=== PATIENT | female | born 1935 | race Caucasian/White ===

== ENCOUNTER 2017-06-20 18:39 | Inpatient (IN) | payer MEDICARE, SELFPAY ==
[2017-06-20] VITALS (13 sets, daily range): BP systolic 99–189; BP diastolic 53–67; PULSE 72–168; RESP 14–24; TEMP 37.1–37.8; O2SAT 94–97; BMI 44.4
--- NOTE | 2017-06-20 19:05 | ECHOD_ITS ---
Reason For Study: Afib, Aflutter Procedure This was a 2D Doppler, Color Flow transthoracic echocardiogram. The study was technically difficult. Did not use Definity due to increased PAP. Exam performed portable in patient room. Left Ventricle Normal LV size. Left ventricular systolic function is normal. The estimated ejection fraction is 55 %. Transmitral and pulmonary venous doppler flow suggestive of elevated left atrial pressure. No regional wall motion abnormalities noted. Right Ventricle Normal RV size. Normal systolic function. Atria The left atrium is mildly enlarged. Normal right atrium. Mitral Valve Normal mitral valve. Mild (1+) eccentric mitral valve insufficiency. Tricuspid Valve Normal tricuspid valve. Moderate (2+) tricuspid valve insufficiency. Pulmonary artery systolic pressure is 52 mmHg. Moderate pulmonary hypertension. Aortic Valve Trisinus/trileaflet aortic valve. Mild focal aortic valve calcification. Mild (1+) eccentric aortic valve insufficiency. Pulmonic Valve The pulmonic valve is not well visualized. Great Vessels Normal aortic root. The pulmonary artery is normal size. Normal inferior vena cava. Pericardium/Pleural No pericardial effusion. Medication Performed a rapid injection of agitated mix of 9 cc saline and 1cc air to assess for atrial septal defect. MMode/2D Measurements & Calculations LVIDd: 4.7 cm IVSd: 1.1 cm LVOT diam: 2.0 cm LVIDs: 3.4 cm LVPWd: 0.87 cm LVOT area: 3.0 cm2 RVDd: 5.2 cm FS: 28.3 % Ao root diam: 2.7 cm LAV(MOD-bp): 62.3 ml LA dimension: 4.6 cm LAV(MOD-bp) Indexed: 30.8 ml/m2 LA A4 area: 22.0 cm2 LAV(MOD-sp2): 53.8 ml LAV(MOD-sp4): 61.0 ml RA A4 area: 15.4 cm2 Time Measurements MV dec time: 0.14 sec Doppler Measurements & Calculations MV E max shine: 121.5 cm/sec Lat Peak E' Shine: 8.8 cm/sec Med Peak E' Shine: 5.6 cm/sec MV A max shine: 118.4 cm/sec E/E' lat: 13.7 E/E' med: 21.6 MV E/A: 1.0 MV V2 max: 123.1 cm/sec MV P1/2t max shine: 118.5 cm/sec Ao V2 max: 234.5 cm/sec MV max P.1 mmHg MV P1/2t: 84.0 msec Ao max P.0 mmHg MV V2 mean: 72.1 cm/sec MV dec slope: 413.1 cm/sec2 Ao V2 mean: 171.0 cm/sec MV mean P.4 mmHg MVA(P1/2t): 2.6 cm2 Ao mean P.2 mmHg MV V2 VTI: 40.3 cm Ao V2 VTI: 52.8 cm MVA(VTI): 2.0 cm2 KIRILL(I,D): 1.5 cm2 KIRILL(V,D): 1.7 cm2 AI max shine: 313.7 cm/sec LV V1 max: 130.1 cm/sec SV(LVOT): 79.6 ml AI max P.5 mmHg LV V1 max P.8 mmHg AI dec slope: 222.0 cm/sec2 LV V1 mean P.1 mmHg AI P1/2t: 414.0 msec LV V1 mean: 94.7 cm/sec LV V1 VTI: 26.5 cm PA V2 max: 85.3 cm/sec TR max shine: 338.6 cm/sec TR max P.9 mmHg Interpretation Summary Normal LV size. Left ventricular systolic function is normal. The estimated ejection fraction is 55 %. Transmitral and pulmonary venous doppler flow suggestive of elevated left atrial pressure. Moderate (2+) tricuspid valve insufficiency. Pulmonary artery systolic pressure is 52 mmHg. Moderate pulmonary hypertension. Ordering Physician: Patricia Pinto Performed By: Malorie Alford, MARCELL, RVT
--- NOTE | 2017-06-20 19:05 | EKG12_ITS ---
Test Reason : CHEST PAIN Blood Pressure : / mmHG Vent. Rate : 097 BPM Atrial Rate : 097 BPM P-R Int : 120 ms QRS Dur : 138 ms QT Int : 372 ms P-R-T Axes : 058 120 037 degrees QTc Int : 472 ms Normal sinus rhythm Right bundle branch block Left posterior fascicular block Bifascicular block Abnormal ECG No previous ECGs available Confirmed by HUMZA MUÑOZ MD ([id number]), avid editor JONO GREGG ([id number] on 06/24/2017 1:37:30 PM Referred By: ANDRIA Confirmed By:HUMZA MUÑOZ MD
--- NOTE | 2017-06-20 19:15 | PCM.HP.STD ---
Problem List (1) Left nephrolithiasis Status: Acute (2) Hydroureter, left Status: Acute (3) Hydronephrosis, left Status: Acute (4) Acute UTI Status: Acute (5) HTN (hypertension) Status: Chronic Qualifiers: Hypertension type: essential hypertension Qualified Code(s): I10 - Essential (primary) hypertension (6) HLD (hyperlipidemia) Status: Chronic Qualifiers: Hyperlipidemia type: unspecified Qualified Code(s): E78.5 - Hyperlipidemia, unspecified (7) Chronic lymphedema Status: Chronic (8) Iron deficiency anemia Status: Chronic Qualifiers: Iron deficiency anemia type: unspecified iron deficiency Qualified Code(s): D50.9 - Iron deficiency anemia, unspecified (9) Morbid obesity Status: Chronic (10) Chronic venous stasis dermatitis Status: Chronic History of Present Illness Date of Admission: 06/20/17 Chief Complaint: L CVA tenderness, dysuria The patient is a 82 y/o F w/ PMHx: Morbid Obesity, Hypoventilation Syndrome, HTN, HLD, Diabetes mellitus type II, Chronic venous stasis and chronic BL LE lymphedema, Hx Nephrolithasis who presents as OSH transfer to the [facility] on 06/20/17 with history of onset L sided abdominal and back discomfort, worsening steadily with dysuria starting today, felt likely consistent with kidney stone from her prior experience prompting OSH ED evaluation w/ noted evidence acute UTI and acute L sided hydronephrosis and hydroureter with 11 mm stone prompting request for transfer. In the OSH ED work-up included T 97.9, heart rate 71, BP 180/100, respiratory rate 18, 92% on room air, CBC with WBC 11.3, hemoglobin 11.1, platelet 344 with left shift, BMP with sodium 138, potassium 4.7, chloride 101, CO2 26, BUN/Cr 28/1.2, glucose 222, trop < 0.02, UA remarkable for UTI w/ pending UCx at [facility] ED, EKG initial with SR without acute evidence of ischemia, administered NS and rocephin 1 gm IV x 1. While in the ED at OSH she was noted to have sudden rate increase HR asymptomatic to 130s with appearance on monitor of atrial fibrillation, prior to any intervention, < 10 minutes duration she converted to regular rhythm per ED physician report. Past Medical History Past Medical History (Chronic Problems): Chronic Problems HTN (hypertension) (Chronic) HLD (hyperlipidemia) (Chronic) Chronic lymphedema (Chronic) Iron deficiency anemia (Chronic) Morbid obesity (Chronic) Chronic venous stasis dermatitis (Chronic) Allergies lisinopril Adverse Reaction (Verified 06/20/17 19:14) Other COUGH Home Medications: Ambulatory Orders Medication Instructions Recorded Amlodipine [Norvasc] 5 mg PO DAILY 06/20/17 Aspirin [Aspirin, Baby] 81 mg PO DAILY@0800 06/20/17 Atorvastatin Calcium [Lipitor] 10 mg PO QHS 06/20/17 Ferrous Sulfate 325 mg PO BID 06/20/17 Furosemide [Lasix] 40 mg PO DAILY 06/20/17 Glipizide [Glipizide ER] 5 mg PO TID 06/20/17 Levothyroxine [Synthroid] 137 mcg PO DAILY 06/20/17 Losartan Potassium 100 mg PO DAILY 06/20/17 Metformin HCl [Glucophage] 500 mg PO BID 06/20/17 Multivit-Min/FA/Lycopen/Lutein 1 each PO DAILY 06/20/17 [Centrum Silver Tablet] Omeprazole [Prilosec] 20 mg PO DAILY 06/20/17 Pioglitazone HCl [Pioglitazone HCl] 15 mg PO DAILY 06/20/17 Potassium Chloride [Klor-Con 10 meq PO BID 06/20/17 Sprinkle] Surgical History: - - Denies any surgical history. 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 Smoking Status: Never smoker Tobacco Use: Non-smoker Alcohol: None Drugs: None - *Family History Maternal History Items: - - She denies any marked maternal or paternal family history including heart disease, diabetes, cancer. Paternal History Items: - - She denies any marked maternal or paternal family history including heart disease, diabetes, cancer. Review of Systems Constitutional: Reports: Anorexia, Malaise, Weakness, Fatigue. Denies: Chills, Fever, Weight Change HEENT: Denies: Head Aches, Sinus Congestion, Sinus Drainage Cardiovascular: Denies: Chest Pain, Palpitations Respiratory: Denies: Cough, Shortness of breath at rest, Sputum production Gastrointestinal: Reports: Abdominal Pain, Nausea, Vomiting Genitourinary: Denies: Dysuria Musculoskeletal: Denies: Joint Pain, Joint Tenderness Skin: Reports: Skin Changes. Denies: Rash, Wounds Neurological: Denies: Numbness, Tingling, Focal weakness Psychiatric: Denies: Anxiety, Depression, Homicidal Ideations, Suicidal Ideations Hematologic/ Lymphatic: Reports: Anemia. Denies: Easy Bruising, Easy Bleeding VTE Information - Inpt Only VTE Present on Admission: No VTE Mechan Device Prophylaxis: SCD's VTE Pharm Prophylaxis ordered?: No Reason prophylaxis not ordered:: Medical Contraindication - Holding for OR, start chemoprophylaxis following if cleared per Urology. Patient Problems: Active and Suspected Problems Left nephrolithiasis (Acute) Hydroureter, left (Acute) Hydronephrosis, left (Acute) Acute UTI (Acute) Subjective: Seated upright in the bed, in severe discomfort, notes ongoing flank pain L sided. Objective: Physical Examination: General: awake, alert, oriented x 3 and cooperative, seated upright in bed, visibly in discomfort and pain. Skin: normal color, turgor, no icterus, cyanosis except BL LE notable chronic venous stasis skin changes to the bilateral lower extremities as well as severe flaking dry skin, chronic BL LE lymphedema. HEENT: AT/NC, EOMI, PERRLA, dry MM, no carotid bruits or JVD noted; but, difficult to assess given habitus and thickened neck. Lungs: Diminished breath sounds bilaterally, greater bases, poor effort secondary to ongoing flank discomfort, and severe pain, no rales, ronchi or wheezing. Heart: Currently tachycardic with regular rhythm (OSH ED ? PAF w/ RVR); no gallop, rub audible. Abdomen: soft, morbidly obese, severe L sided abdominal TTP and L flank pain, ND, hypoactive BS, difficult to assess HSM secondary to acute pain and habitus. Extremities: no cyanosis, clubbing, see skin changes. Neurological: patient awake, alert, oriented x 3; cognitive function intact; pupils equally reactive to light and accomodation; cranial nerves II-XII grossly normal, moving all 4 extremities but limited secondary to acute presentation, no focal deficits, strength severely globally decreased secondary to acute presentation. Psychiatric: affect appears strained secondary to acute pain, no acute evidence of depressive or anxiety feelings. - Physical Exam Vital Signs Temp Pulse Resp BP Pulse Ox 99.2 F H 153 H 18 189/57 H 97 03/30/18 18:57 06/20/17 19:01 06/20/17 18:57 06/20/17 18:57 06/20/17 18:57 Oxygen Flow Rate (L/min) 5 Oxygen Delivery Method Nasal Cannula Weight: 235 lb 3.732 oz Body Mass Index (BMI) 44.4 Assessment/Plan Active and Suspected Problems Left nephrolithiasis (Acute) Hydroureter, left (Acute) Hydronephrosis, left (Acute) Acute UTI (Acute) The patient is a 82 y/o F w/ PMHx: Morbid Obesity, Hypoventilation Syndrome, HTN, HLD, Diabetes mellitus type II, Chronic venous stasis and chronic BL LE lymphedema, Hx Nephrolithasis who presents as OSH transfer to the [facility] on 06/20/17 with history of onset L sided abdominal and back discomfort, worsening steadily with dysuria, felt likely consistent with kidney stone from her prior experience prompting OSH ED evaluation w/ noted evidence acute UTI and acute L sided hydronephrosis and hydroureter with 11 mm stone prompting request for transfer. (1) Acute Flank Pain, secondary to Acute Nephrolithiasis w/ Acute L sided Hydroureter and Hydronephrosis w/ 11 mm Obstructive Calculi with concurrent Acute UTI: WBC w/ 11.3 w/ L shift, UA remarkable w/ pending UCx from OSH ED, CT Abd obtained w/ as noted evidence of L sided hydronephrosis, hydroureter w/ 11 mm stone. Will admit to PCU given ? afib transiently, maintain on hydration, maintain on IV Rocephin antiobitic therapy, maintain NPO for intervention, place on Famotidine IV, PRN pain regimen oral and IV, PRN anti-emetics, monitor I&Os. Urology consulted and planned intervention today per earlier discussions. (2) ? New onset, Transient Paroxsymal atrial fibrillation: EKG in ED OSH with no evidence of atrial fibrillation, transient event in their ED, will maintain on telemetry, obtain cardiac enzyme serial set, obtain magnesium level, obtain ECHO, obtain TSH level. Defer anticoagulation as unclear if true event and planned OR with urology as noted. Will in the interim add metoprolol 25 mg BID. (3) Diabetes mellitus type II: Hold oral home regimen, NPO currently and once appropriate transition to ADA diet, accu checks w/ ISS. (4) Hypertension: Continue home regimen including Lasix, losartan, Norvasc given renal function has remained appropriate but will repeat labs in a.m. and if worsened will hold, PRN hydralazine. (5) Hyperlipidemia: Continue home statin regimen. (6) Morbid Obesity: Weight loss and lifestyle changes encouraged, nutrition consulted. (7) Chronic venous stasis and chronic BL LE lymphedema: BL snug TAYLOR wraps. (8) Fe Deficiency Anemia: OSH ED Hgb 11.1, stable from their report of records, maintain on Fe supplementation. (9) DVT Prophylaxis: SCDs, holding chemoprophylaxis for planned OR. (10) CODE status: Discussed CODE status at length including difference between FULL code, DNR-CCA and DNR-CC status. Following discussions about the differences in these status, requested FULL CODE status. Advanced Care Planning Face to Face Time: 16 minutes. Code Visit Inpatient E&M: 24487 Init Hosp L3 Procedures: 37541 Advncd Care Plan 30 Min
--- NOTE | 2017-06-20 19:29 | HP.PCM_ITS ---
Problem List (1) Left nephrolithiasis Status: Acute (2) Hydroureter, left Status: Acute (3) Hydronephrosis, left Status: Acute (4) Acute UTI Status: Acute (5) HTN (hypertension) Status: Chronic Qualifiers: Hypertension type: essential hypertension Qualified Code(s): I10 - Essential (primary) hypertension (6) HLD (hyperlipidemia) Status: Chronic Qualifiers: Hyperlipidemia type: unspecified Qualified Code(s): E78.5 - Hyperlipidemia , unspecified (7) Chronic lymphedema Status: Chronic (8) Iron deficiency anemia Status: Chronic Qualifiers: Iron deficiency anemia type: unspecified iron deficiency Qualified Code(s) : D50.9 - Iron deficiency anemia, unspecified (9) Morbid obesity Status: Chronic (10) Chronic venous stasis dermatitis Status: Chronic History of Present Illness Date of Admission: 06/20/17 Chief Complaint: L CVA tenderness, dysuria The patient is a 82 y/o F w/ PMHx: Morbid Obesity, Hypoventilation Syndrome, HTN , HLD, Diabetes mellitus type II, Chronic venous stasis and chronic BL LE lymphedema, Hx Nephrolithasis who presents as OSH transfer to the [facility] on with history of onset L sided abdominal and back discomfort, worsening steadily with dysuria starting today, felt likely consistent with kidney stone from her prior experience prompting OSH ED evaluation w/ noted evidence acute UTI and acute L sided hydronephrosis and hydroureter with 11 mm stone prompting request for transfer. In the OSH ED work-up included T 97.9, heart rate 71, BP 180/100, respiratory rate 18, 92% on room air, CBC with WBC 11.3, hemoglobin 11.1, platelet 344 with left shift, BMP with sodium 138, potassium 4.7, chloride 101, CO2 26, BUN/Cr 28/1.2, glucose 222, trop < 0.02, UA remarkable for UTI w/ pending UCx at [facility] ED, EKG initial with SR without acute evidence of ischemia, administered NS and rocephin 1 gm IV x 1. While in the ED at OSH she was noted to have sudden rate increase HR asymptomatic to 130s with appearance on monitor of atrial fibrillation, prior to any intervention, < 10 minutes duration she converted to regular rhythm per ED physician report. Past Medical History Past Medical History (Chronic Problems): Chronic Problems HTN (hypertension) (Chronic) HLD (hyperlipidemia) (Chronic) Chronic lymphedema (Chronic) Iron deficiency anemia (Chronic) Morbid obesity (Chronic) Chronic venous stasis dermatitis (Chronic) Allergies lisinopril Adverse Reaction (Verified 06/20/17 19:14) Other COUGH Home Medications: Ambulatory Orders Medication Instructions Recorded Amlodipine [Norvasc] 5 mg PO DAILY 06/20/17 Aspirin [Aspirin, Baby] 81 mg PO DAILY@0800 06/20/17 Atorvastatin Calcium [Lipitor] 10 mg PO QHS 06/20/17 Ferrous Sulfate 325 mg PO BID 06/20/17 Furosemide [Lasix] 40 mg PO DAILY 06/20/17 Glipizide [Glipizide ER] 5 mg PO TID 06/20/17 Levothyroxine [Synthroid] 137 mcg PO DAILY 06/20/17 Losartan Potassium 100 mg PO DAILY 06/20/17 Metformin HCl [Glucophage] 500 mg PO BID 06/20/17 Multivit-Min/FA/Lycopen/Lutein 1 each PO DAILY 06/20/17 [Centrum Silver Tablet] Omeprazole [Prilosec] 20 mg PO DAILY 06/20/17 Pioglitazone HCl [Pioglitazone HCl] 15 mg PO DAILY 06/20/17 Potassium Chloride [Klor-Con 10 meq PO BID 06/20/17 Sprinkle] Surgical History: - - Denies any surgical history. 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 Smoking Status: Never smoker Tobacco Use: Non-smoker Alcohol: None Drugs: None - *Family History Maternal History Items: - - She denies any marked maternal or paternal family history including heart disease, diabetes, cancer. Paternal History Items: - - She denies any marked maternal or paternal family history including heart disease, diabetes, cancer. Review of Systems Constitutional: Reports: Anorexia, Malaise, Weakness, Fatigue. Denies: Chills, Fever, Weight Change HEENT: Denies: Head Aches, Sinus Congestion, Sinus Drainage Cardiovascular: Denies: Chest Pain, Palpitations Respiratory: Denies: Cough, Shortness of breath at rest, Sputum production Gastrointestinal: Reports: Abdominal Pain, Nausea, Vomiting Genitourinary: Denies: Dysuria Musculoskeletal: Denies: Joint Pain, Joint Tenderness Skin: Reports: Skin Changes. Denies: Rash, Wounds Neurological: Denies: Numbness, Tingling, Focal weakness Psychiatric: Denies: Anxiety, Depression, Homicidal Ideations, Suicidal Ideations Hematologic/ Lymphatic: Reports: Anemia. Denies: Easy Bruising, Easy Bleeding VTE Information - Inpt Only VTE Present on Admission: No VTE Mechan Device Prophylaxis: SCD's VTE Pharm Prophylaxis ordered?: No Reason prophylaxis not ordered:: Medical Contraindication - Holding for OR, start chemoprophylaxis following if cleared per Urology. Patient Problems: Active and Suspected Problems Left nephrolithiasis (Acute) Hydroureter, left (Acute) Hydronephrosis, left (Acute) Acute UTI (Acute) Subjective: Seated upright in the bed, in severe discomfort, notes ongoing flank pain L sided. Objective: Physical Examination: General: awake, alert, oriented x 3 and cooperative, seated upright in bed, visibly in discomfort and pain. Skin: normal color, turgor, no icterus, cyanosis except BL LE notable chronic venous stasis skin changes to the bilateral lower extremities as well as severe flaking dry skin, chronic BL LE lymphedema. HEENT: AT/NC, EOMI, PERRLA, dry MM, no carotid bruits or JVD noted; but, difficult to assess given habitus and thickened neck. Lungs: Diminished breath sounds bilaterally, greater bases, poor effort secondary to ongoing flank discomfort, and severe pain, no rales, ronchi or wheezing. Heart: Currently tachycardic with regular rhythm (OSH ED ? PAF w/ RVR); no gallop, rub audible. Abdomen: soft, morbidly obese, severe L sided abdominal TTP and L flank pain, ND , hypoactive BS, difficult to assess HSM secondary to acute pain and habitus. Extremities: no cyanosis, clubbing, see skin changes. Neurological: patient awake, alert, oriented x 3; cognitive function intact; pupils equally reactive to light and accomodation; cranial nerves II-XII grossly normal, moving all 4 extremities but limited secondary to acute presentation, no focal deficits, strength severely globally decreased secondary to acute presentation. Psychiatric: affect appears strained secondary to acute pain, no acute evidence of depressive or anxiety feelings. - Physical Exam Vital Signs Temp Pulse Resp BP Pulse Ox 99.2 F H 153 H 18 189/57 H 97 03/30/18 18:57 06/20/17 19:01 06/20/17 18:57 06/20/17 18:57 06/20/17 18:57 Oxygen Flow Rate (L/min) 5 Oxygen Delivery Method Nasal Cannula Weight: 235 lb 3.732 oz Body Mass Index (BMI) 44.4 Assessment/Plan Active and Suspected Problems Left nephrolithiasis (Acute) Hydroureter, left (Acute) Hydronephrosis, left (Acute) Acute UTI (Acute) The patient is a 82 y/o F w/ PMHx: Morbid Obesity, Hypoventilation Syndrome, HTN , HLD, Diabetes mellitus type II, Chronic venous stasis and chronic BL LE lymphedema, Hx Nephrolithasis who presents as OSH transfer to the [facility] on with history of onset L sided abdominal and back discomfort, worsening steadily with dysuria, felt likely consistent with kidney stone from her prior experience prompting OSH ED evaluation w/ noted evidence acute UTI and acute L sided hydronephrosis and hydroureter with 11 mm stone prompting request for transfer. (1) Acute Flank Pain, secondary to Acute Nephrolithiasis w/ Acute L sided Hydroureter and Hydronephrosis w/ 11 mm Obstructive Calculi with concurrent Acute UTI: WBC w/ 11.3 w/ L shift, UA remarkable w/ pending UCx from OSH ED, CT Abd obtained w/ as noted evidence of L sided hydronephrosis, hydroureter w/ 11 mm stone. Will admit to PCU given ? afib transiently, maintain on hydration, maintain on IV Rocephin antiobitic therapy, maintain NPO for intervention, place on Famotidine IV, PRN pain regimen oral and IV, PRN anti-emetics, monitor I&Os. Urology consulted and planned intervention today per earlier discussions. (2) ? New onset, Transient Paroxsymal atrial fibrillation: EKG in ED OSH with no evidence of atrial fibrillation, transient event in their ED, will maintain on telemetry, obtain cardiac enzyme serial set, obtain magnesium level, obtain ECHO, obtain TSH level. Defer anticoagulation as unclear if true event and planned OR with urology as noted. Will in the interim add metoprolol 25 mg BID. (3) Diabetes mellitus type II: Hold oral home regimen, NPO currently and once appropriate transition to ADA diet, accu checks w/ ISS. (4) Hypertension: Continue home regimen including Lasix, losartan, Norvasc given renal function has remained appropriate but will repeat labs in a.m. and if worsened will hold, PRN hydralazine. (5) Hyperlipidemia: Continue home statin regimen. (6) Morbid Obesity: Weight loss and lifestyle changes encouraged, nutrition consulted. (7) Chronic venous stasis and chronic BL LE lymphedema: BL snug TAYLOR wraps. (8) Fe Deficiency Anemia: OSH ED Hgb 11.1, stable from their report of records, maintain on Fe supplementation. (9) DVT Prophylaxis: SCDs, holding chemoprophylaxis for planned OR. (10) CODE status: Discussed CODE status at length including difference between FULL code, DNR-CCA and DNR-CC status. Following discussions about the differences in these status, requested FULL CODE status. Advanced Care Planning Face to Face Time: 16 minutes. Code Visit Inpatient E&M: 87746 Init Hosp L3 Procedures: 80466 Advncd Care Plan 30 Min
[2017-06-20] MEDS: Morphine 2 MG/ML Syringe IV (19:58)
[2017-06-20] MEDS: Ceftriaxone 1 GM/50 ML BAG IV (20:00)
[2017-06-20] MEDS: 0.9% Normal Saline 1,000 ML 125 ML IV (20:03)
[2017-06-20] MEDS: Metoprolol Tartrate 25 MG Tablet PO (20:05)
--- NOTE | 2017-06-20 20:09 | PCM.CONS.GEN ---
Problem List (1) Left nephrolithiasis Status: Acute (2) Acute UTI Status: Acute Reason for Consult Date of Consultation: 06/20/17 Reason for Consultation: Obstruction, infection and pain History of Present Illness: The patient is a 82 year old F who was transferred here for annual pulmonary hospital. She presented there with acute onset of renal colic and CT scan showed left hydroureteronephrosis. She is also found to have urinary tract infection and patient was having significant pain. He has multiple comorbidities with chronic morbid obesity chronic edema of lower extremities diabetes mellitus type 2 long-standing but no prior cardiac issues. However in the ER residual pulmonary was noted to have episodes of A. fib. Her troponins have been negative pressure has been stable and it is thought that the severity of pain is contributing to the intermittent cardiac arrhythmia. I reviewed the hospital chart, her CT scan from [facility], her laboratory studies. She had a recent EKG while I was attending her that showed essentially regular rhythm her vital signs are otherwise stable. Patient is in significant pain and doing poorly with pain management. Due to the infections that she was recently given a dose of Rocephin. [] Past Medical History Past Medical History (Chronic Problems): Chronic Problems HTN (hypertension) (Chronic) HLD (hyperlipidemia) (Chronic) Chronic lymphedema (Chronic) Iron deficiency anemia (Chronic) Morbid obesity (Chronic) Chronic venous stasis dermatitis (Chronic) Allergies lisinopril Adverse Reaction (Verified 06/20/17 19:14) Other COUGH Home Medications: Ambulatory Orders Medication Instructions Recorded Amlodipine [Norvasc] 5 mg PO DAILY 06/20/17 Aspirin [Aspirin, Baby] 81 mg PO DAILY@0800 06/20/17 Atorvastatin Calcium [Lipitor] 10 mg PO QHS 06/20/17 Ferrous Sulfate 325 mg PO BID 06/20/17 Furosemide [Lasix] 40 mg PO DAILY 06/20/17 Glipizide [Glipizide ER] 5 mg PO TID 06/20/17 Levothyroxine [Synthroid] 137 mcg PO DAILY 06/20/17 Losartan Potassium 100 mg PO DAILY 06/20/17 Metformin HCl [Glucophage] 500 mg PO BID 06/20/17 Multivit-Min/FA/Lycopen/Lutein 1 each PO DAILY 06/20/17 [Centrum Silver Tablet] Omeprazole [Prilosec] 20 mg PO DAILY 06/20/17 Pioglitazone HCl [Pioglitazone HCl] 15 mg PO DAILY 06/20/17 Potassium Chloride [Klor-Con 10 meq PO BID 06/20/17 Sprinkle] Surgical History: - - Denies any surgical history. 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 Smoking Status: Never smoker Tobacco Use: Non-smoker Alcohol: None Drugs: None - *Family History Maternal History Items: - - She denies any marked maternal or paternal family history including heart disease, diabetes, cancer. Paternal History Items: - - She denies any marked maternal or paternal family history including heart disease, diabetes, cancer. Review of Systems Constitutional: Reports: - - obesity UNABLE TO PLACE MORE INFO INTO APPROPRIATE BOXES, BUT PT HAS DM TYPE II AND IS ON NUMEROUS MEDICATIONS FOR THIS, SHOULD BE NOTED IN PMH Patient Problems: Active and Suspected Problems Left nephrolithiasis (Acute) Hydroureter, left (Acute) Hydronephrosis, left (Acute) Acute UTI (Acute) - Physical Exam General: Alert, Oriented x3, Cooperative, - - OBESE Oral: Moist Mucosa Abdomen: Bowel Sounds Present, Obese, - - PAIN IN LEFT CVA Extremities: Edema Vital Signs Temp Pulse Resp BP Pulse Ox 99.2 F H 101 H 18 189/57 H 97 06/20/17 18:57 06/20/17 20:05 06/20/17 18:57 06/20/17 18:57 06/20/17 18:57 Oxygen Flow Rate (L/min) 5 Oxygen Delivery Method Nasal Cannula Weight: 106.7 kg Body Mass Index (BMI) 44.4 Assessment/Plan Active and Suspected Problems Left nephrolithiasis (Acute) Hydroureter, left (Acute) Hydronephrosis, left (Acute) Acute UTI (Acute) Diabetic patients with acute onset of left renal lithiasis, very proximal. Patient also has a urinary tract infection. She has numerous comorbidities and recently started with arrhythmia when in the ER and [place]. She has been started on parenteral antibiotics. At this point I feel a stent is needed for drainage and pain management. To do this under minimal anesthesia will address the stone at a later date when patient is more clinically stable.
--- NOTE | 2017-06-20 20:19 | CON.PCM_ITS ---
Problem List (1) Left nephrolithiasis Status: Acute (2) Acute UTI Status: Acute Reason for Consult Date of Consultation: 06/20/17 Reason for Consultation: Obstruction, infection and pain History of Present Illness: The patient is a 82 year old F who was transferred here for annual pulmonary hospital. She presented there with acute onset of renal colic and CT scan showed left hydroureteronephrosis. She is also found to have urinary tract infection and patient was having significant pain. He has multiple comorbidities with chronic morbid obesity chronic edema of lower extremities diabetes mellitus type 2 long-standing but no prior cardiac issues. However in the ER residual pulmonary was noted to have episodes of A. fib. Her troponins have been negative pressure has been stable and it is thought that the severity of pain is contributing to the intermittent cardiac arrhythmia. I reviewed the hospital chart, her CT scan from [facility], her laboratory studies. She had a recent EKG while I was attending her that showed essentially regular rhythm her vital signs are otherwise stable. Patient is in significant pain and doing poorly with pain management. Due to the infections that she was recently given a dose of Rocephin. [] Past Medical History Past Medical History (Chronic Problems): Chronic Problems HTN (hypertension) (Chronic) HLD (hyperlipidemia) (Chronic) Chronic lymphedema (Chronic) Iron deficiency anemia (Chronic) Morbid obesity (Chronic) Chronic venous stasis dermatitis (Chronic) Allergies lisinopril Adverse Reaction (Verified 06/20/17 19:14) Other COUGH Home Medications: Ambulatory Orders Medication Instructions Recorded Amlodipine [Norvasc] 5 mg PO DAILY 06/20/17 Aspirin [Aspirin, Baby] 81 mg PO DAILY@0800 06/20/17 Atorvastatin Calcium [Lipitor] 10 mg PO QHS 06/20/17 Ferrous Sulfate 325 mg PO BID 06/20/17 Furosemide [Lasix] 40 mg PO DAILY 06/20/17 Glipizide [Glipizide ER] 5 mg PO TID 06/20/17 Levothyroxine [Synthroid] 137 mcg PO DAILY 06/20/17 Losartan Potassium 100 mg PO DAILY 06/20/17 Metformin HCl [Glucophage] 500 mg PO BID 06/20/17 Multivit-Min/FA/Lycopen/Lutein 1 each PO DAILY 06/20/17 [Centrum Silver Tablet] Omeprazole [Prilosec] 20 mg PO DAILY 06/20/17 Pioglitazone HCl [Pioglitazone HCl] 15 mg PO DAILY 06/20/17 Potassium Chloride [Klor-Con 10 meq PO BID 06/20/17 Sprinkle] Surgical History: - - Denies any surgical history. 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 Smoking Status: Never smoker Tobacco Use: Non-smoker Alcohol: None Drugs: None - *Family History Maternal History Items: - - She denies any marked maternal or paternal family history including heart disease, diabetes, cancer. Paternal History Items: - - She denies any marked maternal or paternal family history including heart disease, diabetes, cancer. Review of Systems Constitutional: Reports: - - obesity UNABLE TO PLACE MORE INFO INTO APPROPRIATE BOXES, BUT PT HAS DM TYPE II AND IS ON NUMEROUS MEDICATIONS FOR THIS , SHOULD BE NOTED IN PMH Patient Problems: Active and Suspected Problems Left nephrolithiasis (Acute) Hydroureter, left (Acute) Hydronephrosis, left (Acute) Acute UTI (Acute) - Physical Exam General: Alert, Oriented x3, Cooperative, - - OBESE Oral: Moist Mucosa Abdomen: Bowel Sounds Present, Obese, - - PAIN IN LEFT CVA Extremities: Edema Vital Signs Temp Pulse Resp BP Pulse Ox 99.2 F H 101 H 18 189/57 H 97 06/20/17 18:57 06/20/17 20:05 06/20/17 18:57 06/20/17 18:57 06/20/17 18:57 Oxygen Flow Rate (L/min) 5 Oxygen Delivery Method Nasal Cannula Weight: 106.7 kg Body Mass Index (BMI) 44.4 Assessment/Plan Active and Suspected Problems Left nephrolithiasis (Acute) Hydroureter, left (Acute) Hydronephrosis, left (Acute) Acute UTI (Acute) Diabetic patients with acute onset of left renal lithiasis, very proximal. Patient also has a urinary tract infection. She has numerous comorbidities and recently started with arrhythmia when in the ER and [place]. She has been started on parenteral antibiotics. At this point I feel a stent is needed for drainage and pain management. To do this under minimal anesthesia will address the stone at a later date when patient is more clinically stable.
[2017-06-20] MEDS: Lubricating Jelly 60 GM Tube 30 GM TOPICAL (21:06)
[2017-06-20 21:07] LABS: Thyroid Stim Hormone (TSH) 2.51 uIU/mL (0.358-3.74)
[2017-06-20 21:11] LABS: Magnesium 1.5 mg/dL (1.6-2.6)
[2017-06-20] MEDS: Lidocaine Jelly 2% 20 ML Syringe (URO-JET) 20 APPLIC (21:14)
--- NOTE | 2017-06-20 21:44 | PCM.IMDPSTOP ---
Problem List (1) Left nephrolithiasis Status: Acute (2) Acute UTI Status: Acute Immediate Post-Op Note Date of Procedure: 06/20/17 Primary Surgeon/Physician: Jermain Muhammad plastic surgery specialist: None Pre-Operative Diagnosis: Lt ureteral lithiasis, UTI Post-Operative Diagnosis: same Surgery/Procedure Performed:: cysto, retro and Lt stent placement Description of Surgical Findings:: as above Estimated Blood Loss: none Specimen's removed: urine for C&S Drains: marino Type of Anesthesia:: MAC and Topical Anesth - Kancherla - Admit VTE Documentation VTE Present on Admission: No VTE Mechan Device Prophylaxis: None VTE Pharm Prophylaxis ordered?: Yes
--- NOTE | 2017-06-20 21:47 | OP.PN_ITS ---
Problem List (1) Left nephrolithiasis Status: Acute (2) Acute UTI Status: Acute Immediate Post-Op Note Date of Procedure: 06/20/17 Primary Surgeon/Physician: Jermain Muhammad systems engineer: None Pre-Operative Diagnosis: Lt ureteral lithiasis, UTI Post-Operative Diagnosis: same Surgery/Procedure Performed:: cysto, retro and Lt stent placement Description of Surgical Findings:: as above Estimated Blood Loss: none Specimen's removed: urine for C&S Drains: marino Type of Anesthesia:: MAC and Topical Anesth - Kancherla - Admit VTE Documentation VTE Present on Admission: No VTE Mechan Device Prophylaxis: None VTE Pharm Prophylaxis ordered?: Yes
--- NOTE | 2017-06-20 21:51 | OP.PCM_ITS ---
Problem List (1) Left nephrolithiasis Status: Acute (2) Acute UTI Status: Acute Operative Report Date of Procedure: 06/20/17 Preop diagnosis left ureteral lithiasis UTI Postop same Procedure cystoscopy, left retrograde and left ureteral stent placement Anesthesia MAC with Hiral and local anesthesia Procedure patient was recently admitted to the hospital with an acute obstruction and having difficulty with pain management. She is brought this time for a stent placements. She is taken to the operating room placed on the table and placed in body position and prepped and draped in sterile technique. She is placed under MAC anesthesia by Dr. Blackman. At this point urethra was injected 2% lidocaine gel and after several minutes a 21 Faroese scope was then placed under digital exam. Had a markedly deflected bladder necessitating significant anterior deflection of the scope to get in the bladder. The severity of the cystocele unable to find the orifice ease with the 12? lens. Urine itself was markedly purulent and some of this was collected and sent for C &S. After flushing the bladder several times and then switch over to a 70? lens with the bridge and a guidewire is able to cannulate the left orifice with digital elevation of the trigone. The wire was then placed up in the renal pelvis the Pollick catheter was removed and over this placed a 6 x 24 stent with a good curl distally approximately small suture that was inside the bladder. At this point as there was an infection elected leave a Garcia catheter. [address] Patient was then taken recovery in stable condition. That is on this dictation is Dr. Telles;radu dictating thank you
[2017-06-20 22:01] LABS: Bedside Glucose 117 mg/dL (70-110)
[2017-06-20] MEDS: Atorvastatin Calcium 10 MG Tablet PO (22:40)
[2017-06-20] MEDS: Famotidine 20 MG Tablet PO (22:40)
[2017-06-20] MEDS: Senna/Docusate Sodium 1 Tablet 2 TABLET PO (22:41)
[2017-06-20 23:01] LABS: Bedside Glucose 131 mg/dL (70-110)
[2017-06-20 23:49] LABS: Hemoglobin A1c 6.5 % (4.2-6.3)
[2017-06-21] VITALS (19 sets, daily range): BP systolic 89–133; BP diastolic 34–64; PULSE 67–147; RESP 18–26; TEMP 36.7–37.9; O2SAT 94–98; BMI 44.4
--- NOTE | 2017-06-21 01:07 | NURSING ---
Pt notified that MD wants pts legs to be washed, cream to be applied, and TAYLOR wraps applied. Pt does not want legs washed, does not want cream applied, and stated she does not want TAYLOR wraps until AM.
[2017-06-21] MEDS: 0.9% Normal Saline 1,000 ML 125 ML IV (02:18)
[2017-06-21 04:00] LABS: Hematocrit 31.1 % (37-47); Hemoglobin 9.6 g/dl (12.0-15.0); Mean Corp Hgb Conc 30.9 g/gl (32-36); Mean Corpuscular Hgb 29.6 pg (27.0-32.0); Mean Platelet Vol. 9.6 fl (6.2-12.0); Platelet Count 267 K/mm3 (150-450); RBC Distribution Width CV 16.4 % (11.6-14.6); RBC Distribution Width SD 54.7 fl (35.1-43.9); Red Blood Count 3.24 M/mm3 (4.2-5.4)
[2017-06-21 04:08] LABS: Scan Indicated on CBC? Y/N NO
[2017-06-21 04:12] LABS: Anion Gap 11 (5-15); BUN 32 mg/dL (7-18); BUN/Creat Ratio 15.1 RATIO (10-20); Calcium,Total 7.4 mg/dL (8.5-10.1); Chloride 111 mmol/L (98-107); Cholesterol 83 mg/dL (200); Creatinine, Serum 2.12 mg/dL (0.55-1.02); EST Glomerular Filtration Rate 24 mL/min (>60); Est Glom Filt Rate - Afr Amer 29 mL/min (>60); Estimated Creatinine Clearance 15.44 ml/min; Glucose 111 mg/dL (74-106); High Density Lipoprotein 41 mg/dL; Potassium 4.3 mmol/L (3.5-5.1); Sodium Level 146 mmol/L (136-145); Triglycerides 56 mg/dL; Very Low Density Lipoprotein 11 mg/dL (5-40)
--- NOTE | 2017-06-21 05:55 | EKG12_ITS ---
Test Reason : Blood Pressure : / mmHG Vent. Rate : 132 BPM Atrial Rate : 150 BPM P-R Int : 000 ms QRS Dur : 138 ms QT Int : 356 ms P-R-T Axes : 000 084 -07 degrees QTc Int : 527 ms Atrial fibrillation Right bundle branch block Abnormal ECG When compared with ECG of 20-JUN-2017 19:25, MANUAL COMPARISON REQUIRED, DATA IS UNCONFIRMED Confirmed by WANDA SINCLAIR, HUMZA ([id number]), makeup editor JONO GREGG ([id number]) on 06/24/2017 1:38:44 PM Referred By: ANDRIA Confirmed By:HUMZA MUÑOZ MD
[2017-06-21] MEDS: Levothyroxine 137 MCG Tablet PO (06:24)
[2017-06-21 06:46] LABS: Bedside Glucose 109 mg/dL (70-110)
[2017-06-21 07:41] LABS: Bedside Glucose 128 mg/dL (70-110)
[2017-06-21] MEDS: Aspirin 81 MG TAB.CHEW PO (08:21)
--- NOTE | 2017-06-21 08:37 | NURSING ---
pt is refusing to have legs washed with soap & water and to have eucerin applied. Applied TAYLOR wraps to BLE.
--- NOTE | 2017-06-21 08:53 | RAD_ITS ---
STUDY: X-RAY CHEST REASON FOR EXAM: Female, 82 years old. Shortness of breath. TECHNIQUE: Frontal and lateral views of the chest. COMPARISON: None. FINDINGS: There are monitoring devices. There is interstitial and groundglass opacification. There is no demonstrated pleural abnormality. There is moderate cardiac enlargement. Normal mediastinum and rachel. There is prominence of the pulmonary hilar arteries and peripheral pulmonary arteries, consistent with congestive heart failure (CHF). There is atherosclerotic calcification of the aortic arch with tortuosity. There is demineralization of the osseous structures. Normal visualized ribs, clavicles, and shoulders. There is no demonstrated abnormality of the visualized soft tissue structures of the upper abdomen. RAD/Chest PA and Lateral IMPRESSION: CHF with cardiac enlargement and edema. Electronically Signed: Richmond Solano MD at 11:50 EDT , Service support ,
--- NOTE | 2017-06-21 09:00 | RAD_ITS ---
STUDY: X-RAY - ABDOMEN/PELVIS REASON FOR EXAM: Female, 82 years old. Left urinary stone. TECHNIQUE: AP supine views of the abdomen and pelvis. COMPARISON: None. FINDINGS: There are interstitial and groundglass opacities of the lungs. There is an unremarkable bowel gas pattern. There is no demonstrated free abdominal air. There is a urinary stent extending from the region of the left renal pelvis to the bladder. Normal soft tissue structures. Degenerative change of the spine and pelvis. RAD/Abdomen Single View IMPRESSION: Left urinary stent. Electronically Signed: Richmond Solano MD at 11:53 EDT , Service support ,
[2017-06-21] MEDS: 0.9% NaCl Peripheral Flush Adult/Peds IV (09:30)
[2017-06-21] MEDS: Furosemide 20 MG/2 ML VIAL IV ×2 (09:30→12:47)
[2017-06-21] MEDS: Famotidine 20 MG Tablet PO ×2 (10:57→21:47)
[2017-06-21] MEDS: Nystatin Powder 15gm Bottle 1 APPLIC TOPICAL ×2 (11:18→21:48)
[2017-06-21 11:26] LABS: Bedside Glucose 128 mg/dL (70-110)
[2017-06-21] MEDS: Ceftriaxone 1 GM/50 ML BAG IV (12:47)
[2017-06-21] MEDS: Ferrous Sulfate 325 MG Tablet PO ×2 (12:50→17:11)
--- NOTE | 2017-06-21 13:09 | CASEMGMT ---
Social Work Referral for limited support. Spoke with patient in room. Introduced self as well as social work role. Patient reporting to currently be living with son in a 2-story home with a 1st floor set up and x1 step to enter the home. Patient reporting to need assistance in the home and that patient son provided assistance. Patient reporting to use a cane to walk prior to hospitalization. Patient reporting that patient son is able to provide 24hr within the home for patient. Broaching topic of supports for patient, patient identifying son as main support and to not have many other supports. This clinical social work therapist noting that patient required x2 assist for bed mobility and broached topic of prison placement for skilled services. Patient declining prison stating to not be interested in placement, even if patient requires more assistance then patient needed prior to admission. Patient reporting that patient son will be able to assist. Support given. Social work to continue to follow as needed Caroline NÚÑEZ, RETAIL BUSINESS ANALYST
--- NOTE | 2017-06-21 13:31 | PCM.PROGNOTE ---
<Maite Tineo - Last Filed: 06/21/17 14:27> Patient Problems: Active and Suspected Problems Left nephrolithiasis (Acute) Hydroureter, left (Acute) Hydronephrosis, left (Acute) Acute UTI (Acute) Subjective: Patient seen and examined. Resting comfortably in chair, drowsy at this time. Denies fever, chills. Denies abdominal or flank pain. Garcia catheter in place and draining. Denies other complaints. - Physical Exam General: Oriented x3, Cooperative, No apparent distress, - - Drowsy HEENT: Atraumatic, PERRLA, EOMI, Normocephalic Neck: Supple, No JVD, Negative Carotid Bruits Lungs: Clear to auscultation, Diminished Cardiovascular: Regular rate, Regular Rhythm, Normal S1, Normal S2, No murmurs Abdomen: Bowel Sounds Present, Soft, Non Tender, Non-Distended, Obese Extremities: No clubbing, No cyanosis, Edema - BLLE, BL hands. Skin: No rashes, No breakdown Musculoskeletal: No Tenderness to Palpation of Joints or Extremities Neurological: Cranial nerves II-XII grossly intact, Neuro grossly intact Psych/Mental Status: Normal Affect, Appropriate Vital Signs Temp Pulse Resp BP Pulse Ox 98.6 F 70 20 H 97/51 L 96 06/21/17 11:19 06/21/17 11:19 06/21/17 11:19 06/21/17 11:19 06/21/17 11:19 Oxygen Flow Rate (L/min) 4 Oxygen Delivery Method Nasal Cannula Weight: 106.7 kg Body Mass Index (BMI) 44.4 Finger Stick Blood Glucose 117 Intake and Output for Last 24 Hours 06/19/17 06/20/17 06/21/17 23:59 23:59 23:59 Intake Total 805 / 805 1200 / 1200 Output Total 50 / 50 20 / 20 Balance 755 / 755 1180 / 1180 Microbiology Past 72 Hours 06/20/17 21:23 Urine Culture - Preliminary Urine, Cystoscopy Gram negative gomez Laboratory Tests Past 24 Hrs 06/20/17 06/20/17 06/20/17 20:06 20:06 23:22 WBC RBC Hgb Hct MCV MCH MCHC RDW RDW Differential Plt Count MPV Sodium Potassium Chloride Carbon Dioxide Anion Gap BUN Creatinine Estim Creat Clear Calc Est GFR (MDRD) Af Amer Est GFR (MDRD) Non-Af BUN/Creatinine Ratio Glucose Hemoglobin A1c Calcium Magnesium 1.5 L Troponin I < 0.02 < 0.02 Triglycerides Cholesterol LDL Cholesterol VLDL Cholesterol HDL Cholesterol TSH 2.51 06/20/17 06/21/17 06/21/17 23:22 03:47 03:47 WBC 27.0 H RBC 3.24 L Hgb 9.6 L Hct 31.1 L MCV 96.0 MCH 29.6 MCHC 30.9 L RDW 16.4 H RDW Differential 54.7 H Plt Count 267 MPV 9.6 Sodium 146 H Potassium 4.3 Chloride 111 H Carbon Dioxide 24.0 Anion Gap 11 BUN 32 H Creatinine 2.12 H Estim Creat Clear Calc 15.44 Est GFR (MDRD) Af Amer 29 L Est GFR (MDRD) Non-Af 24 L BUN/Creatinine Ratio 15.1 Glucose 111 H Hemoglobin A1c 6.5 H Calcium 7.4 L Magnesium Troponin I Triglycerides 56 Cholesterol 83 LDL Cholesterol 31 VLDL Cholesterol 11 HDL Cholesterol 41 TSH 06/21/17 06/21/17 03:47 09:25 WBC RBC Hgb Hct MCV MCH MCHC RDW RDW Differential Plt Count MPV Sodium Potassium Chloride Carbon Dioxide Anion Gap BUN Creatinine Estim Creat Clear Calc Est GFR (MDRD) Af Amer Est GFR (MDRD) Non-Af BUN/Creatinine Ratio Glucose Hemoglobin A1c Calcium Magnesium Troponin I < 0.02 < 0.02 Triglycerides Cholesterol LDL Cholesterol VLDL Cholesterol HDL Cholesterol TSH POC Glucose 06/21/17 06/21/17 06/21/17 11:17 06:53 04:13 POC Glucose 128 H 128 H 109 06/20/17 06/20/17 22:37 21:56 POC Glucose 131 H 117 H Medical Necessity - Tobacco Use Smoking Status: Never smoker Tobacco Use: Non-smoker Assessment/Plan Active and Suspected Problems Left nephrolithiasis (Acute) Hydroureter, left (Acute) Hydronephrosis, left (Acute) Acute UTI (Acute) Patient is a 82-year-old female admitted 06/20/2017 due to left CVA tenderness and dysuria. She has a past medical history of morbid obesity, hypoventilation syndrome, hypertension, hyperlipidemia, type 2 diabetes mellitus, chronic venous stasis and chronic bilateral lower extremity lymphedema, history of nephrolithiasis. 1. Acute left nephrolithiasis and gram-negative cystitis-status post cystoscopy and left stent placement 06/20/[address] at outside facility showed left hydroureter and hydronephrosis. KUB today showed left urinary stent. Fever improving. WBC 27. Continue IV Rocephin. Urology consulted. 2. Acute diastolic CHF with associated acute hypoxia-chest x-ray shows CHF with cardiac enlargement and edema. Echocardiogram showed an ejection fraction of 55%, moderate tricuspid valve insufficiency, moderate pulmonary hypertension with RVSP 52 mmHg. Patient received IV Lasix ?2. Continue Lasix 40 mg daily. Patient has had poor urine output. Strict I's and O's. 3. New onset paroxysmal atrial fibrillation-currently sinus rhythm. Patient has had repeat episodes of atrial fibrillation briefly during admission. Patient was started on metoprolol 25 mg twice daily for rate control. Continue aspirin. 4. Suspected acute kidney injury-unknown of patient's baseline. Creatinine 2.12. Trend BMP. If no improvement, consider nephrology consult. 5. Type 2 diabetes mellitus-hold oral regimen. ADA diet. Accu-Cheks before meals at bedtime with sliding scale insulin. 6. Hypertension-stable, continue home regimen. 7. Hyperlipidemia-continue statin. 8. Chronic venous stasis and chronic bilateral lower extremity lymphedema-continue Hadley wraps bilateral lower extremities. 9. Iron deficiency anemia-stable, continue iron supplementation. 10. Morbid obesity-nutrition consult. Encouraged diet and lifestyle modifications. DVT prophylaxis-SCDs. This patient was seen by LOIDA Lopez under the supervision of Dr. Grijalva. <Ruiz Grijalva - Last Filed: 06/21/17 16:34> Subjective: Seen and examined. Patient has bilateral lower extremity edema, lower legs wrapped along with upper extremity edema. Mild short of breath but feels comfortable and sitting upright in chair. - Physical Exam Lungs: No wheeze, No rales, Diminished Cardiovascular: Regular rate, Regular Rhythm, Normal S1, Normal S2, No murmurs Abdomen: Non-Distended, Obese Extremities: Diminished Peripheral Pulses, Edema Vital Signs Temp Pulse Resp BP Pulse Ox 98.6 F 68 20 H 118/52 L 98 06/21/17 15:46 06/21/17 15:46 06/21/17 15:46 06/21/17 15:46 06/21/17 15:46 Oxygen Flow Rate (L/min) 3 Oxygen Delivery Method Nasal Cannula Weight: 235 lb 3.732 oz Body Mass Index (BMI) 44.4 Finger Stick Blood Glucose 117 Intake and Output for Last 24 Hours 06/19/17 06/20/17 06/21/17 23:59 23:59 23:59 Intake Total 805 / 805 1200 / 1200 Output Total 50 / 50 20 / 20 Balance 755 / 755 1180 / 1180 Microbiology Past 72 Hours 06/20/17 21:23 Urine Culture - Preliminary Urine, Cystoscopy Gram negative gomez Laboratory Tests Past 24 Hrs 06/20/17 06/20/17 06/20/17 20:06 20:06 23:22 WBC RBC Hgb Hct MCV MCH MCHC RDW RDW Differential Plt Count MPV Sodium Potassium Chloride Carbon Dioxide Anion Gap BUN Creatinine Estim Creat Clear Calc Est GFR (MDRD) Af Amer Est GFR (MDRD) Non-Af BUN/Creatinine Ratio Glucose Hemoglobin A1c Calcium Magnesium 1.5 L Troponin I < 0.02 < 0.02 Triglycerides Cholesterol LDL Cholesterol VLDL Cholesterol HDL Cholesterol TSH 2.51 06/20/17 06/21/17 06/21/17 23:22 03:47 03:47 WBC 27.0 H RBC 3.24 L Hgb 9.6 L Hct 31.1 L MCV 96.0 MCH 29.6 MCHC 30.9 L RDW 16.4 H RDW Differential 54.7 H Plt Count 267 MPV 9.6 Sodium 146 H Potassium 4.3 Chloride 111 H Carbon Dioxide 24.0 Anion Gap 11 BUN 32 H Creatinine 2.12 H Estim Creat Clear Calc 15.44 Est GFR (MDRD) Af Amer 29 L Est GFR (MDRD) Non-Af 24 L BUN/Creatinine Ratio 15.1 Glucose 111 H Hemoglobin A1c 6.5 H Calcium 7.4 L Magnesium Troponin I Triglycerides 56 Cholesterol 83 LDL Cholesterol 31 VLDL Cholesterol 11 HDL Cholesterol 41 TSH 06/21/17 06/21/17 03:47 09:25 WBC RBC Hgb Hct MCV MCH MCHC RDW RDW Differential Plt Count MPV Sodium Potassium Chloride Carbon Dioxide Anion Gap BUN Creatinine Estim Creat Clear Calc Est GFR (MDRD) Af Amer Est GFR (MDRD) Non-Af BUN/Creatinine Ratio Glucose Hemoglobin A1c Calcium Magnesium Troponin I < 0.02 < 0.02 Triglycerides Cholesterol LDL Cholesterol VLDL Cholesterol HDL Cholesterol TSH POC Glucose 06/21/17 06/21/17 06/21/17 11:17 06:53 04:13 POC Glucose 128 H 128 H 109 06/20/17 06/20/17 22:37 21:56 POC Glucose 131 H 117 H Assessment/Plan This patient was seen in conjunction with Maite BEVERLY. I have independently interviewed and examined the patient and reviewed pertinent history, examination findings, laboratory and plan of management. I have reviewed the note and agree with the documented findings with the few additional points. In brief, patient is admitted for acute gram-negative cystitis secondary to obstructive left nephrolithiasis. Patient is a left hydroureter and hydronephrosis. Had left ureteric stone. Patient also has oliguria and fluid overload. Monitor strict I&O's. Titrate IV fluid, albumin for patient acute kidney injury which is multifactorial; prerenal, postobstructive and possible ATN due to sepsis. If kidney function does not improve, consult nephrology. I have discussed my assessment with SCHOOL AGE LEAD TEACHERMaite and orders have been reviewed. Code Visit Inpatient E&M: 95900 Subs Hosp L3
--- NOTE | 2017-06-21 13:37 | PCM.PROGNOTE ---
Patient Problems: Active and Suspected Problems Left nephrolithiasis (Acute) Hydroureter, left (Acute) Hydronephrosis, left (Acute) Acute UTI (Acute) - Physical Exam Vital Signs Temp Pulse Resp BP Pulse Ox 98.6 F 70 20 H 97/51 L 96 06/21/17 11:19 06/21/17 11:19 06/21/17 11:19 06/21/17 11:19 06/21/17 11:19 Oxygen Flow Rate (L/min) 4 Oxygen Delivery Method Nasal Cannula Weight: 106.7 kg Body Mass Index (BMI) 44.4 Finger Stick Blood Glucose 117 Intake and Output for Last 24 Hours 06/19/17 06/20/17 06/21/17 23:59 23:59 23:59 Intake Total 805 / 805 1200 / 1200 Output Total 50 / 50 20 / 20 Balance 755 / 755 1180 / 1180 Microbiology Past 72 Hours 06/20/17 21:23 Urine Culture - Preliminary Urine, Cystoscopy Gram negative gomez Laboratory Tests Past 24 Hrs 06/20/17 06/20/17 06/20/17 20:06 20:06 23:22 WBC RBC Hgb Hct MCV MCH MCHC RDW RDW Differential Plt Count MPV Sodium Potassium Chloride Carbon Dioxide Anion Gap BUN Creatinine Estim Creat Clear Calc Est GFR (MDRD) Af Amer Est GFR (MDRD) Non-Af BUN/Creatinine Ratio Glucose Hemoglobin A1c Calcium Magnesium 1.5 L Troponin I < 0.02 < 0.02 Triglycerides Cholesterol LDL Cholesterol VLDL Cholesterol HDL Cholesterol TSH 2.51 06/20/17 06/21/17 06/21/17 23:22 03:47 03:47 WBC 27.0 H RBC 3.24 L Hgb 9.6 L Hct 31.1 L MCV 96.0 MCH 29.6 MCHC 30.9 L RDW 16.4 H RDW Differential 54.7 H Plt Count 267 MPV 9.6 Sodium 146 H Potassium 4.3 Chloride 111 H Carbon Dioxide 24.0 Anion Gap 11 BUN 32 H Creatinine 2.12 H Estim Creat Clear Calc 15.44 Est GFR (MDRD) Af Amer 29 L Est GFR (MDRD) Non-Af 24 L BUN/Creatinine Ratio 15.1 Glucose 111 H Hemoglobin A1c 6.5 H Calcium 7.4 L Magnesium Troponin I Triglycerides 56 Cholesterol 83 LDL Cholesterol 31 VLDL Cholesterol 11 HDL Cholesterol 41 TSH 06/21/17 06/21/17 03:47 09:25 WBC RBC Hgb Hct MCV MCH MCHC RDW RDW Differential Plt Count MPV Sodium Potassium Chloride Carbon Dioxide Anion Gap BUN Creatinine Estim Creat Clear Calc Est GFR (MDRD) Af Amer Est GFR (MDRD) Non-Af BUN/Creatinine Ratio Glucose Hemoglobin A1c Calcium Magnesium Troponin I < 0.02 < 0.02 Triglycerides Cholesterol LDL Cholesterol VLDL Cholesterol HDL Cholesterol TSH POC Glucose 06/21/17 06/21/17 06/21/17 11:17 06:53 04:13 POC Glucose 128 H 128 H 109 06/20/17 06/20/17 22:37 21:56 POC Glucose 131 H 117 H Medical Necessity - Tobacco Use Smoking Status: Never smoker Tobacco Use: Non-smoker Assessment/Plan Active and Suspected Problems Left nephrolithiasis (Acute) Hydroureter, left (Acute) Hydronephrosis, left (Acute) Acute UTI (Acute) Patient appears to be much more comfortable. Is not having any pain, but does not recollect much of what happened last night. She listens attentively and then states we have to tell her son because she does not remember anything. White count is up to 27 and creatinine is slightly elevated. Flowing freely with dark slightly purulent urine Urologic plans leave catheter in for the next few days When clinically stable need to return to OR for left ureteroscopy and laser lithotripsy Stone not visible on KUB has a HU 450 We will do surgery when patient stable, this may even be as an outpatient.
--- NOTE | 2017-06-21 13:59 | CPS ---
pt refused to do I.S.
[2017-06-21] MEDS: 0.9% Normal Saline 1,000 ML 50 ML IV (15:41)
[2017-06-21 17:20] LABS: Bedside Glucose 190 mg/dL (70-110)
[2017-06-21] MEDS: Atorvastatin Calcium 10 MG Tablet PO (21:47)
[2017-06-21] MEDS: Senna/Docusate Sodium 1 Tablet 2 TABLET PO (21:47)
[2017-06-21] MEDS: Metoprolol Tartrate 25 MG Tablet PO (21:47)
[2017-06-21 22:10] LABS: Bedside Glucose 159 mg/dL (70-110)
[2017-06-22] VITALS (13 sets, daily range): BP systolic 125–158; BP diastolic 61–80; PULSE 58–73; RESP 18–20; TEMP 36.9–37; O2SAT 93–99; BMI 44.4
[2017-06-22] MEDS: Levothyroxine 137 MCG Tablet PO (06:28)
[2017-06-22 06:54] LABS: Hematocrit 31.4 % (37-47); Hemoglobin 9.4 g/dl (12.0-15.0); Mean Corp Hgb Conc 29.9 g/gl (32-36); Mean Corpuscular Hgb 28.7 pg (27.0-32.0); Mean Corpuscular Volume 95.7 fL (81-99); Mean Platelet Vol. 10.1 fl (6.2-12.0); Platelet Count 245 K/mm3 (150-450); RBC Distribution Width CV 16.9 % (11.6-14.6); RBC Distribution Width SD 58.4 fl (35.1-43.9); Red Blood Count 3.28 M/mm3 (4.2-5.4); White Blood Count 24.6 K/mm3 (4.4-11.0)
[2017-06-22 07:03] LABS: Scan Indicated on CBC? Y/N NO
[2017-06-22 07:20] LABS: Bedside Glucose 154 mg/dL (70-110)
[2017-06-22 08:13] LABS: Anion Gap 10 (5-15); BUN 43 mg/dL (7-18); BUN/Creat Ratio 13.7 RATIO (10-20); Calcium,Total 7.9 mg/dL (8.5-10.1); Chloride 105 mmol/L (98-107); Creatinine, Serum 3.15 mg/dL (0.55-1.02); EST Glomerular Filtration Rate 15 mL/min (>60); Est Glom Filt Rate - Afr Amer 18 mL/min (>60); Estimated Creatinine Clearance 10.39 ml/min; Glucose 138 mg/dL (74-106); Potassium 5.6 mmol/L (3.5-5.1); Sodium Level 139 mmol/L (136-145)
[2017-06-22] MEDS: Aspirin 81 MG TAB.CHEW PO (08:27)
[2017-06-22] MEDS: Furosemide 40 MG Tablet PO (09:20)
[2017-06-22] MEDS: Ceftriaxone 1 GM/50 ML BAG IV (09:20)
[2017-06-22] MEDS: Metoprolol Tartrate 25 MG Tablet PO ×2 (09:20→21:00)
[2017-06-22] MEDS: 0.9% Normal Saline 1,000 ML 50 ML IV (09:20)
[2017-06-22] MEDS: Nystatin Powder 15gm Bottle 1 APPLIC TOPICAL ×2 (09:21→21:05)
[2017-06-22] MEDS: Famotidine 20 MG Tablet PO ×2 (09:22→21:00)
[2017-06-22] MEDS: amLODIPine 5 MG Tablet PO (09:22)
[2017-06-22] MEDS: Senna/Docusate Sodium 1 Tablet 2 TABLET PO (09:22)
[2017-06-22] MEDS: Ferrous Sulfate 325 MG Tablet PO ×2 (11:35→16:39)
[2017-06-22] MEDS: Bisacodyl 5 MG Tablet 10 MG PO (11:35)
[2017-06-22] MEDS: Sodium Polystyrene Sulfonate 15 GM/60 ML UDC 30 GM PO (11:36)
[2017-06-22 11:41] LABS: Bedside Glucose 170 mg/dL (70-110)
[2017-06-22 11:56] LABS: Mucous, Urine 0 SEEN /hpf (<or=2+); Squamous Epithelial Cells - UA 0 SEEN /hpf (5-10)
[2017-06-22 12:03] LABS: Color, Urine Brown (Yellow); Glucose, Dipstick Normal (Normal); Ketone-Dipstick 5 mg/dl (Negative); Leukocyte Esterase-Dipstick 500 /ul (Negative); Nitrite-Dipstick Positive (Negative); Occult Blood-Urine 250 /ul (Negative); Protein-Dipstick 100 mg/dl (Negative); Urine Bilirubin Dipstick 1 mg/dL (Negative); Urine Clarity Cloudy (Clear); Urine Urobilinogen Normal (Normal)
[2017-06-22 12:15] LABS: Red Blood Cells-Urine > 100 SEEN /hpf (0-5); White Blood Cells 10-25 SEEN /hpf (0-5); Yeast-Urine 2+ /hpf (None Seen)
[2017-06-22 12:16] LABS: Bacteria 1+ /hpf (None Seen); Urine Sodium 39 mmol/L (Not Establ.)
--- NOTE | 2017-06-22 13:34 | PN_ITS ---
<Maite Tineo - Last Filed: 06/22/17 13:44> Patient Problems: Active and Suspected Problems Left nephrolithiasis (Acute) Hydroureter, left (Acute) Hydronephrosis, left (Acute) Acute UTI (Acute) Subjective: Patient seen and examined. Much more alert today and feels she states well. Denies fever, chills. Denies flank pain. States she lives at home with son. Hoping to go home in the near future. Denies other complaints. - Physical Exam General: Alert, Oriented x3, Cooperative, No apparent distress HEENT: Atraumatic, PERRLA, EOMI, Normocephalic Neck: Supple, No JVD, Negative Carotid Bruits Lungs: Diminished, - - Minimal diffuse crackles. Cardiovascular: Regular rate, Regular Rhythm, Normal S1, Normal S2, No murmurs Abdomen: Bowel Sounds Present, Soft, Non Tender, Non-Distended, Obese Extremities: No clubbing, No cyanosis, Capillary Refill Less than 3 Seconds, Edema - Bilateral lower extremities and hands Skin: No rashes, No breakdown Musculoskeletal: No Tenderness to Palpation of Joints or Extremities Neurological: Cranial nerves II-XII grossly intact, Neuro grossly intact Psych/Mental Status: Normal Affect, Appropriate Vital Signs Temp Pulse Resp BP Pulse Ox 98.6 F 60 20 H 145/75 H 95 06/22/17 08:35 06/22/17 10:58 06/22/17 08:35 06/22/17 08:35 06/22/17 08:35 Oxygen Flow Rate (L/min) 2 Oxygen Delivery Method Nasal Cannula Weight: 106.7 kg Body Mass Index (BMI) 44.4 Finger Stick Blood Glucose 117 Intake and Output for Last 24 Hours 06/20/17 06/21/17 06/22/17 23:59 23:59 23:59 Intake Total 805 / 805 2483 / 2483 1252 / 1252 Output Total 50 / 50 170 / 170 180 / 180 Balance 755 / 755 2313 / 2313 1072 / 1072 Microbiology Past 72 Hours 06/20/17 21:23 Urine Culture - Final Urine, Cystoscopy Enterobacter aerogenes Laboratory Tests Past 24 Hrs 06/22/17 06/22/17 06/22/17 05:40 05:40 11:40 WBC 24.6 H RBC 3.28 L Hgb 9.4 L Hct 31.4 L MCV 95.7 MCH 28.7 MCHC 29.9 L RDW 16.9 H RDW Differential 58.4 H Plt Count 245 MPV 10.1 Sodium 139 Potassium 5.6 H Chloride 105 Carbon Dioxide 24.0 Anion Gap 10 BUN 43 H Creatinine 3.15 H Estim Creat Clear Calc 10.39 Est GFR (MDRD) Af Amer 18 L Est GFR (MDRD) Non-Af 15 L BUN/Creatinine Ratio 13.7 Glucose 138 H Calcium 7.9 L Magnesium 2.0 Urine Color Brown Urine Clarity Cloudy Urine pH 5.0 Ur Specific [place] 1.020 Urine Protein 100 H Urine Glucose (UA) Normal Urine Ketones 5 H Urine Occult Blood 250 H Urine Nitrite Positive H Urine Bilirubin 1 H Urine Urobilinogen Normal Ur Leukocyte Esterase 500 H Urine RBC > 100 SEEN Urine WBC 10-25 SEEN Ur Squamous Epith Cells 0 SEEN Urine Bacteria 1+ Urine Mucus 0 SEEN Urine Yeast 2+ Ur Random Sodium Urine Creatinine 06/22/17 06/22/17 11:40 11:40 WBC RBC Hgb Hct MCV MCH MCHC RDW RDW Differential Plt Count MPV Sodium Potassium Chloride Carbon Dioxide Anion Gap BUN Creatinine Estim Creat Clear Calc Est GFR (MDRD) Af Amer Est GFR (MDRD) Non-Af BUN/Creatinine Ratio Glucose Calcium Magnesium Urine Color Urine Clarity Urine pH Ur Specific [place] Urine Protein Urine Glucose (UA) Urine Ketones Urine Occult Blood Urine Nitrite Urine Bilirubin Urine Urobilinogen Ur Leukocyte Esterase Urine RBC Urine WBC Ur Squamous Epith Cells Urine Bacteria Urine Mucus Urine Yeast Ur Random Sodium 39 Urine Creatinine 116.00 POC Glucose 06/22/17 06/22/17 06/21/17 11:34 06:47 21:56 POC Glucose 170 H 154 H 159 H 06/21/17 17:08 POC Glucose 190 H Medical Necessity - Tobacco Use Smoking Status: Never smoker Tobacco Use: Non-smoker Assessment/Plan Active and Suspected Problems Left nephrolithiasis (Acute) Hydroureter, left (Acute) Hydronephrosis, left (Acute) Acute UTI (Acute) Patient is a 82-year-old female admitted 06/20/2017 due to left CVA tenderness and dysuria. She has a past medical history of morbid obesity, hypoventilation syndrome, hypertension, hyperlipidemia, type 2 diabetes mellitus, chronic venous stasis and chronic bilateral lower extremity lymphedema, history of nephrolithiasis. 1. Acute left nephrolithiasis and gram-negative cystitis-status post cystoscopy and left stent placement 06/20/[address] at outside facility showed left hydroureter and hydronephrosis. KUB today showed left urinary stent. Fever improving. WBC 27 on admission. Switch to IV Cipro. Urology consulted. Plan to leave Garcia in place for the next few days. When patient is stable she will need to return to the OR for left ureteroscopy and laser lithotripsy. It is possible this will take place as outpatient. 2. Acute diastolic CHF with associated acute hypoxia-chest x-ray shows CHF with cardiac enlargement and edema. Echocardiogram showed an ejection fraction of 55%, moderate tricuspid valve insufficiency, moderate pulmonary hypertension with RVSP 52 mmHg. Patient received IV Lasix ?2. Home oral Lasix regimen discontinued by nephrology. Output slowly improving. Strict I's and O's. 3. New onset paroxysmal atrial fibrillation-currently sinus rhythm. Patient has had repeat episodes of atrial fibrillation briefly during admission. Patient was started on metoprolol 25 mg twice daily for rate control. Continue aspirin. 4. Acute kidney injury-unknown of patient's baseline. Nephrology consulted given increase in creatinine overnight despite fluids. 5. Type 2 diabetes mellitus-hold oral regimen. ADA diet. Accu-Cheks before meals at bedtime with sliding scale insulin. 6. Hypertension-stable, continue home regimen. 7. Hyperlipidemia-continue statin. 8. Chronic venous stasis and chronic bilateral lower extremity lymphedema- continue Hadley wraps bilateral lower extremities. 9. Iron deficiency anemia-stable, continue iron supplementation. 10. Morbid obesity-nutrition consult. Encouraged diet and lifestyle modifications. DVT prophylaxis-SCDs. This patient was seen by LOIDA Lopez under the supervision of Dr. Grijalva. <Ruiz Grijalva - Last Filed: 06/22/17 14:55> Subjective: Seen and examined. Agree with above note. Patient is more awake and alert. Shortness of breath improved. - Physical Exam Lungs: Diminished Abdomen: Non-Distended Extremities: Edema Vital Signs Temp Pulse Resp BP Pulse Ox 98.4 F 61 20 H 158/80 H 96 06/22/17 14:35 06/22/17 14:35 06/22/17 14:35 06/22/17 14:35 06/22/17 14:35 Oxygen Flow Rate (L/min) 2 Oxygen Delivery Method Nasal Cannula Weight: 235 lb 3.732 oz Body Mass Index (BMI) 44.4 Finger Stick Blood Glucose 117 Intake and Output for Last 24 Hours 06/20/17 06/21/17 06/22/17 23:59 23:59 23:59 Intake Total 805 / 805 2483 / 2483 1252 / 1252 Output Total 50 / 50 170 / 170 180 / 180 Balance 755 / 755 2313 / 2313 1072 / 1072 Microbiology Past 72 Hours 06/20/17 21:23 Urine Culture - Final Urine, Cystoscopy Enterobacter aerogenes Laboratory Tests Past 24 Hrs 06/22/17 06/22/17 06/22/17 05:40 05:40 11:40 WBC 24.6 H RBC 3.28 L Hgb 9.4 L Hct 31.4 L MCV 95.7 MCH 28.7 MCHC 29.9 L RDW 16.9 H RDW Differential 58.4 H Plt Count 245 MPV 10.1 Sodium 139 Potassium 5.6 H Chloride 105 Carbon Dioxide 24.0 Anion Gap 10 BUN 43 H Creatinine 3.15 H Estim Creat Clear Calc 10.39 Est GFR (MDRD) Af Amer 18 L Est GFR (MDRD) Non-Af 15 L BUN/Creatinine Ratio 13.7 Glucose 138 H Calcium 7.9 L Magnesium 2.0 Urine Color Brown Urine Clarity Cloudy Urine pH 5.0 Ur Specific [place] 1.020 Urine Protein 100 H Urine Glucose (UA) Normal Urine Ketones 5 H Urine Occult Blood 250 H Urine Nitrite Positive H Urine Bilirubin 1 H Urine Urobilinogen Normal Ur Leukocyte Esterase 500 H Urine RBC > 100 SEEN Urine WBC 10-25 SEEN Ur Squamous Epith Cells 0 SEEN Urine Bacteria 1+ Urine Mucus 0 SEEN Urine Yeast 2+ Ur Random Sodium Urine Creatinine 06/22/17 06/22/17 11:40 11:40 WBC RBC Hgb Hct MCV MCH MCHC RDW RDW Differential Plt Count MPV Sodium Potassium Chloride Carbon Dioxide Anion Gap BUN Creatinine Estim Creat Clear Calc Est GFR (MDRD) Af Amer Est GFR (MDRD) Non-Af BUN/Creatinine Ratio Glucose Calcium Magnesium Urine Color Urine Clarity Urine pH Ur Specific [place] Urine Protein Urine Glucose (UA) Urine Ketones Urine Occult Blood Urine Nitrite Urine Bilirubin Urine Urobilinogen Ur Leukocyte Esterase Urine RBC Urine WBC Ur Squamous Epith Cells Urine Bacteria Urine Mucus Urine Yeast Ur Random Sodium 39 Urine Creatinine 116.00 POC Glucose 06/22/17 06/22/17 06/21/17 11:34 06:47 21:56 POC Glucose 170 H 154 H 159 H 06/21/17 17:08 POC Glucose 190 H Assessment/Plan This patient was seen in conjunction with GAS REVERSERMaite. I have independently interviewed and examined the patient and reviewed pertinent history, examination findings, laboratory and plan of management. I have reviewed the note and agree with the documented findings with the few additional points. In brief, patient is admitted for acute gram-negative cystitis secondary to obstructive left nephrolithiasis. Patient is a left hydroureter and hydronephrosis. Had left ureteric stone. Patient also has oliguria and fluid overload. Monitor strict I&O's. The patient was given IV fluid, albumin for patient acute kidney injury which is multifactorial; prerenal, postobstructive and possible ATN due to sepsis. On IV fluid normal saline 50 mL/h. urine culture shows enterococcus antigen is sensitive to Cipro. Antibiotic change to Cipro. Senior Health Physics Technician consulted. I have discussed my assessment with GAS REVERSERMaite and orders have been reviewed. Code Visit Inpatient E&M: 40521 Subs Hosp L3
[2017-06-22] MEDS: Ciprofloxacin 400 MG/200 ML BAG 200 MG IV (14:20)
[2017-06-22 16:45] LABS: Bedside Glucose 159 mg/dL (70-110)
[2017-06-22] MEDS: Atorvastatin Calcium 10 MG Tablet PO (21:00)
[2017-06-22 22:26] LABS: Bedside Glucose 182 mg/dL (70-110)
--- NOTE | 2017-06-22 23:32 | NURSING ---
This nursing millwright supervisor received a phone call from [facility]. They had a positive urine culture report for enterobacter aerogene gm neg rods. Urine culture obtained at [facility] with same results posted this admission.
[2017-06-23] VITALS (16 sets, daily range): BP systolic 142–196; BP diastolic 63–95; PULSE 52–70; RESP 18–19; TEMP 36.6–36.9; O2SAT 91–97; BMI 44.4
[2017-06-23] MEDS: Levothyroxine 137 MCG Tablet PO (05:11)
[2017-06-23 06:21] LABS: Albumin, Serum 2.6 g/dL (3.2-5.0); BUN 57 mg/dL (7-18); BUN/Creat Ratio 14.8 RATIO (10-20); Calcium,Total 8.3 mg/dL (8.5-10.1); Chloride 106 mmol/L (98-107); Creatinine, Serum 3.85 mg/dL (0.55-1.02); EST Glomerular Filtration Rate 12 mL/min (>60); Est Glom Filt Rate - Afr Amer 14 mL/min (>60); Glucose 166 mg/dL (74-106); Phosphorus 4.9 mg/dL (2.5-4.9); Potassium 4.4 mmol/L (3.5-5.1); Sodium Level 140 mmol/L (136-145)
[2017-06-23 06:46] LABS: Hematocrit 30.4 % (37-47); Hemoglobin 9.5 g/dl (12.0-15.0); Mean Corp Hgb Conc 31.3 g/gl (32-36); Mean Corpuscular Hgb 28.9 pg (27.0-32.0); Mean Corpuscular Volume 92.4 fL (81-99); Mean Platelet Vol. 10.4 fl (6.2-12.0); Platelet Count 224 K/mm3 (150-450); RBC Distribution Width CV 16.6 % (11.6-14.6); RBC Distribution Width SD 56.1 fl (35.1-43.9); Red Blood Count 3.29 M/mm3 (4.2-5.4); White Blood Count 22.6 K/mm3 (4.4-11.0)
[2017-06-23 06:47] LABS: Scan Indicated on CBC? Y/N NO
[2017-06-23 07:01] LABS: Bedside Glucose 157 mg/dL (70-110)
[2017-06-23] MEDS: Aspirin 81 MG TAB.CHEW PO (08:24)
[2017-06-23] MEDS: Metoprolol Tartrate 25 MG Tablet PO ×2 (08:32→21:11)
[2017-06-23] MEDS: Loratadine 10 MG Tablet PO (08:32)
[2017-06-23] MEDS: Famotidine 20 MG Tablet PO ×2 (08:32→21:11)
[2017-06-23] MEDS: Nystatin Powder 15gm Bottle 1 APPLIC TOPICAL (08:34)
[2017-06-23] MEDS: amLODIPine 5 MG Tablet PO (08:35)
[2017-06-23] MEDS: Ciprofloxacin 400 MG/200 ML BAG 200 MG IV (08:40)
[2017-06-23] MEDS: 0.9% Normal Saline 1,000 ML 50 ML IV (08:40)
--- NOTE | 2017-06-23 09:19 | PCM.CONS.R ---
Consultation - Renal 06/23/17 PCP/ Referring MD: Requesting physician: Patricia Pinto Primary care physician: Reason for Consultation:: RUBINA - History of Present Illness History of Present Illness: The patient is a 82 y/o morbidly obese F transferred from [facility] for RUBINA, obstructed kidney stone on left and questionable atrial fibrillation. She had left flank pain, dark urine with leukocytosis WBC 27K on admit. She has PMH for DM2, HTN, hypoventilation syndrome not on CPAP or oxygen at home. She was treated for UTI. Urine cx from 06/21 showed enterobacter aerogenes. She underwent left ureteral stent by and flank pain has subsided but renal function continues to worsen. She has a history of kidney stones a year ago and passed without lithotripsy. Renal US from OSH showed RK with nonobstructing stone, LK with cysts and hydronephrosis with stone in UPJ. She had progressive renal failure with creatinine 2.12 on admit progressed to 3.85 today with low urine volumes. Creatinine was 1.2 in ER at OSH. No prior labs available in [place] records. Garcia continues to show dark, vern urine. She was hypotensive on admission receiving fluid resuscitation. Lasix was discontinued. No recent iv contrast exposure. Urine sodium was 39 with Urine creatinine 116. Potassium was elevated at 5.6 yesterday improved to 4.4 with kayexalate. Currently denied nausea or vomiting. Denies shortness of breath, chest pain but has chronic leg swelling. Her metformin was discontinued on admit. - Allergies Allergies: Allergies lisinopril Adverse Reaction (Verified 06/20/17 19:14) Other COUGH - Current Medications Current Medications: Current Medications Acetaminophen (Tylenol) 650 mg PO Q6H PRN PRN PRN Reason: Mild Pain (scale 0-3)/T>100.7 Albuterol Sulfate (Ventolin Aerosols) 2.5 mg INHALATION Q2H PRN PRN PRN Reason: dyspnea, wheezing Amlodipine Besylate (Norvasc) 5 mg PO DAILY [facility] Last Admin: 06/23/17 08:35 Dose: 5 mg Aspirin (Aspirin, Baby) 81 mg PO DAILY@0800 [facility] Last Admin: 06/23/17 08:24 Dose: 81 mg Atorvastatin Calcium (Lipitor) 10 mg PO QHS [facility] Last Admin: 06/22/17 21:00 Dose: 10 mg Dextrose (D50w Syringe) 0 gm IV X1 PRN; Protocol PRN Reason: Hypoglycemia Famotidine (Pepcid) 20 mg PO BID [facility] Last Admin: 06/23/17 08:32 Dose: 20 mg Ferrous Sulfate (Ferrous Sulfate) 325 mg PO BID@1200,1700 [facility] Last Admin: 06/22/17 16:39 Dose: 325 mg Glucagon () 1 mg IM .X1 PRN PRN Reason: Hypoglycemia Hydralazine HCl (Apresoline Iv) 10 mg IV Q4H PRN PRN PRN Reason: SBP > 160 Sodium Chloride () 1,000 mls @ 50 mls/hr IV .Q20H [facility] Last Admin: 06/23/17 08:40 Dose: 50 mls/hr Ciprofloxacin (Cipro) 400 mg in 200 mls @ 200 mls/hr IV Q24 [facility] Last Admin: 06/23/17 08:40 Dose: 200 mls/hr Insulin Aspart (Novolog Flexpen (Bkc)) 0 units SC 0800,1200,1700,2200 [facility] PRN Reason: Protocol Last Admin: 06/23/17 08:24 Dose: 1 units Levothyroxine Sodium (Synthroid) 137 mcg PO DAILY@0600 [facility] Last Admin: 06/23/17 05:11 Dose: 137 mcg Loratadine (Claritin) 10 mg PO DAILY [facility] Last Admin: 06/23/17 08:32 Dose: 10 mg Metoprolol Tartrate (Lopressor (Beta Arpit)) 25 mg PO BID [facility] Last Admin: 06/23/17 08:32 Dose: 25 mg Morphine Sulfate () 2 - 4 mg IV Q3H PRN PRN PRN Reason: Severe Pain (pain scale 6-10) Last Admin: 06/20/17 19:58 Dose: 4 mg Morphine Sulfate () 1 - 2 mg IV Q4H PRN PRN PRN Reason: Moderate Pain (pain scale 4-5) Nutritional Formula (Lactose Free) (Glucerna Shake) 120 ml PO 4X/DAY [facility] Last Admin: 06/23/17 08:32 Dose: Not Given Nystatin (Mycostatin Powder) 1 applic TOPICAL BID [facility] PRN Reason: Protocol Last Admin: 06/23/17 08:34 Dose: 1 applicatio Ondansetron HCl (Zofran) 4 mg IV Q8H PRN PRN PRN Reason: Nausea Oxycodone HCl (Oxyir) 5 mg PO Q4H PRN PRN PRN Reason: Moderate Pain (pain scale 4-5) Promethazine HCl (Phenergan Iv) 12.5 mg IV Q6H PRN PRN PRN Reason: NAUSEA/VOMITING Psyllium Hydrophilic Mucilloid (Metamucil) 1 packet PO DAILY PRN PRN PRN Reason: CONSTIPATION Senna/Docusate Sodium (Senokot-S, Loida-Colace) 2 tablet PO BID [facility] Last Admin: 06/23/17 08:34 Dose: Not Given Sodium Chloride () 5 - 30 ml IV UD PRN PRN Reason: SALINE FLUSH Last Admin: 06/21/17 09:30 Dose: 10 ml - Past Medical History Past Medical History (Chronic Problems): Chronic Problems HTN (hypertension) (Chronic) HLD (hyperlipidemia) (Chronic) Chronic lymphedema (Chronic) Iron deficiency anemia (Chronic) Morbid obesity (Chronic) Chronic venous stasis dermatitis (Chronic) - Past Surgical History Surgical History: - - Denies any surgical history. - Social History Marital Status: - lives with son Smoking Status: Never smoker Alcohol: None Drugs: None - Family History Maternal History Items: - - She denies any marked maternal or paternal family history including heart disease, diabetes, cancer. Paternal History Items: - - She denies any marked maternal or paternal family history including heart disease, diabetes, cancer. Review of Systems Constitutional: Reports: Weakness. Denies: Anorexia, Chills, Fever HEENT: Denies: Difficulty Hearing Cardiovascular: Reports: Edema. Denies: Chest Pain, Palpitations, Syncope Respiratory: Denies: Cough, Shortness of Breath Gastrointestinal: Denies: Abdominal Pain, Diarrhea, Nausea, Vomiting Genitourinary: Reports: Dysuria, - - dark urine, flank pain resolved after stent placement. Denies: Hematuria Musculoskeletal: Reports: - - generalized weakness Skin: Denies: Rash Neurological: Reports: -. Denies: Balance problems, Tremor, Seizures Hematologic/ Lymphatic: Denies: Anemia, Hx of blood clot Patient Problems: Active and Suspected Problems Left nephrolithiasis (Acute) Hydroureter, left (Acute) Hydronephrosis, left (Acute) Acute UTI (Acute) - Physical Exam General: Alert, Oriented x3, Cooperative, No apparent distress HEENT: PERRLA, EOMI Oral: Dry Mucosa Neck: Supple Lungs: Rales - faint right base Cardiovascular: Regular rate Abdomen: Bowel Sounds Present, Soft, Non Tender, Non-Distended, Obese Extremities: Edema - to abdomen Skin: No rashes Musculoskeletal: No Muscle Wasting Neurological: Cranial nerves II-XII grossly intact Psych/Mental Status: Normal Affect, Appropriate, Alert and oriented to time, place, person, mood and affect Vital Signs Temp Pulse Resp BP Pulse Ox 98.1 F 60 18 180/77 H 97 06/23/17 08:30 06/23/17 08:32 06/23/17 08:30 06/23/17 08:30 06/23/17 08:30 Oxygen Flow Rate (L/min) 1 Oxygen Delivery Method Nasal Cannula Weight: 106.7 kg Body Mass Index (BMI) 44.4 Finger Stick Blood Glucose 117 Intake and Output for Last 24 Hours 06/21/17 06/22/17 06/23/17 23:59 23:59 23:59 Intake Total 2483 / 2483 2465 / 2465 502 / 502 Output Total 170 / 170 380 / 380 155 / 155 Balance 2313 / 2313 2085 / 2085 347 / 347 Microbiology Past 72 Hours 06/20/17 21:23 Urine Culture - Final Urine, Cystoscopy Enterobacter aerogenes Laboratory Tests Past 24 Hrs 06/22/17 06/22/17 06/22/17 11:40 11:40 11:40 WBC RBC Hgb Hct MCV MCH MCHC RDW RDW Differential Plt Count MPV Sodium Potassium Chloride Carbon Dioxide BUN Creatinine Estim Creat Clear Calc Est GFR (MDRD) Af Amer Est GFR (MDRD) Non-Af BUN/Creatinine Ratio Glucose Calcium Phosphorus Albumin Urine Color Brown Urine Clarity Cloudy Urine pH 5.0 Ur Specific [place] 1.020 Urine Protein 100 H Urine Glucose (UA) Normal Urine Ketones 5 H Urine Occult Blood 250 H Urine Nitrite Positive H Urine Bilirubin 1 H Urine Urobilinogen Normal Ur Leukocyte Esterase 500 H Urine RBC > 100 SEEN Urine WBC 10-25 SEEN Ur Squamous Epith Cells 0 SEEN Urine Bacteria 1+ Urine Mucus 0 SEEN Urine Yeast 2+ Ur Random Sodium 39 Urine Creatinine 116.00 06/23/17 06/23/17 05:40 05:40 WBC 22.6 H RBC 3.29 L Hgb 9.5 L Hct 30.4 L MCV 92.4 MCH 28.9 MCHC 31.3 L RDW 16.6 H RDW Differential 56.1 H Plt Count 224 MPV 10.4 Sodium 140 Potassium 4.4 Chloride 106 Carbon Dioxide 23.0 BUN 57 H Creatinine 3.85 H Estim Creat Clear Calc 8.50 Est GFR (MDRD) Af Amer 14 L Est GFR (MDRD) Non-Af 12 L BUN/Creatinine Ratio 14.8 Glucose 166 H Calcium 8.3 L Phosphorus 4.9 Albumin 2.6 L Urine Color Urine Clarity Urine pH Ur Specific [place] Urine Protein Urine Glucose (UA) Urine Ketones Urine Occult Blood Urine Nitrite Urine Bilirubin Urine Urobilinogen Ur Leukocyte Esterase Urine RBC Urine WBC Ur Squamous Epith Cells Urine Bacteria Urine Mucus Urine Yeast Ur Random Sodium Urine Creatinine POC Glucose 06/23/17 06/22/17 06/22/17 06:51 21:03 16:36 POC Glucose 157 H 182 H 159 H 06/22/17 11:34 POC Glucose 170 H Clinical Impression(s) from Imaging Studies Chest X-Ray 06/21/17 08:53 IMPRESSION: CHF with cardiac enlargement and edema. Electronically Signed: Richmond Solano MD at 11:50 EDT , Service support , KUB X-Ray 06/21/17 09:00 IMPRESSION: Left urinary stent. Electronically Signed: Richmond Solano MD at 11:53 EDT , Service support , Assessment/Plan Active and Suspected Problems Left nephrolithiasis (Acute) Hydroureter, left (Acute) Hydronephrosis, left (Acute) Acute UTI (Acute) 1. RUBINA with low FENA to suggest prerenal event however creatinine continues to rise from creatinine 1.2 to 3.85 today despite iv hydration and correction of hypotension. May have ATN from sepsis syndrome. Avoid nephrotoxins. 2. Obstructed left kidney stone s/p ureteral stent 3. Enterobacter aerogenes UTI with leukocytosis intermediate coverage with rocephin. Switched to cipro renal dose. WBC 27K on admit to 22.6K today 4. DM 2 agree with discontinuation of metformin 5. HTN adjust BP meds as needed. 6. Morbid obesity with hypoventilation syndrome. 7. Anasarca with hypoalbuminemia. Oxygenation stable. Lasix as needed 8. Hyperkalemia corrected with kayexalate. Follow low K diet.
--- NOTE | 2017-06-23 09:22 | CON.PCM_ITS ---
Consultation - Renal 06/23/17 PCP/ Referring MD: Requesting physician: Patricia Pinto Primary care physician: Reason for Consultation:: RUBINA - History of Present Illness History of Present Illness: The patient is a 82 y/o morbidly obese F transferred from [facility] for RUBINA, obstructed kidney stone on left and questionable atrial fibrillation. She had left flank pain, dark urine with leukocytosis WBC 27K on admit. She has PMH for DM2, HTN, hypoventilation syndrome not on CPAP or oxygen at home. She was treated for UTI. Urine cx from 06/21 showed enterobacter aerogenes. She underwent left ureteral stent by and flank pain has subsided but renal function continues to worsen. She has a history of kidney stones a year ago and passed without lithotripsy. Renal US from OSH showed RK with nonobstructing stone, LK with cysts and hydronephrosis with stone in UPJ. She had progressive renal failure with creatinine 2.12 on admit progressed to 3.85 today with low urine volumes. Creatinine was 1.2 in ER at OSH. No prior labs available in [place] records. Garcia continues to show dark, vern urine. She was hypotensive on admission receiving fluid resuscitation. Lasix was discontinued. No recent iv contrast exposure. Urine sodium was 39 with Urine creatinine 116. Potassium was elevated at 5.6 yesterday improved to 4.4 with kayexalate. Currently denied nausea or vomiting. Denies shortness of breath, chest pain but has chronic leg swelling. Her metformin was discontinued on admit. - Allergies Allergies: Allergies lisinopril Adverse Reaction (Verified 06/20/17 19:14) Other COUGH - Current Medications Current Medications: Current Medications Acetaminophen (Tylenol) 650 mg PO Q6H PRN PRN PRN Reason: Mild Pain (scale 0-3)/T>100.7 Albuterol Sulfate (Ventolin Aerosols) 2.5 mg INHALATION Q2H PRN PRN PRN Reason: dyspnea, wheezing Amlodipine Besylate (Norvasc) 5 mg PO DAILY [facility] Last Admin: 06/23/17 08:35 Dose: 5 mg Aspirin (Aspirin, Baby) 81 mg PO DAILY@0800 [facility] Last Admin: 06/23/17 08:24 Dose: 81 mg Atorvastatin Calcium (Lipitor) 10 mg PO QHS [facility] Last Admin: 06/22/17 21:00 Dose: 10 mg Dextrose (D50w Syringe) 0 gm IV X1 PRN; Protocol PRN Reason: Hypoglycemia Famotidine (Pepcid) 20 mg PO BID [facility] Last Admin: 06/23/17 08:32 Dose: 20 mg Ferrous Sulfate (Ferrous Sulfate) 325 mg PO BID@1200,1700 [facility] Last Admin: 06/22/17 16:39 Dose: 325 mg Glucagon () 1 mg IM .X1 PRN PRN Reason: Hypoglycemia Hydralazine HCl (Apresoline Iv) 10 mg IV Q4H PRN PRN PRN Reason: SBP > 160 Sodium Chloride () 1,000 mls @ 50 mls/hr IV .Q20H [facility] Last Admin: 06/23/17 08:40 Dose: 50 mls/hr Ciprofloxacin (Cipro) 400 mg in 200 mls @ 200 mls/hr IV Q24 [facility] Last Admin: 06/23/17 08:40 Dose: 200 mls/hr Insulin Aspart (Novolog Flexpen (Bkc)) 0 units SC 0800,1200,1700,2200 [facility] PRN Reason: Protocol Last Admin: 06/23/17 08:24 Dose: 1 units Levothyroxine Sodium (Synthroid) 137 mcg PO DAILY@0600 [facility] Last Admin: 06/23/17 05:11 Dose: 137 mcg Loratadine (Claritin) 10 mg PO DAILY [facility] Last Admin: 06/23/17 08:32 Dose: 10 mg Metoprolol Tartrate (Lopressor (Beta Arpit)) 25 mg PO BID [facility] Last Admin: 06/23/17 08:32 Dose: 25 mg Morphine Sulfate () 2 - 4 mg IV Q3H PRN PRN PRN Reason: Severe Pain (pain scale 6-10) Last Admin: 06/20/17 19:58 Dose: 4 mg Morphine Sulfate () 1 - 2 mg IV Q4H PRN PRN PRN Reason: Moderate Pain (pain scale 4-5) Nutritional Formula (Lactose Free) (Glucerna Shake) 120 ml PO 4X/DAY [facility] Last Admin: 06/23/17 08:32 Dose: Not Given Nystatin (Mycostatin Powder) 1 applic TOPICAL BID [facility] PRN Reason: Protocol Last Admin: 06/23/17 08:34 Dose: 1 applicatio Ondansetron HCl (Zofran) 4 mg IV Q8H PRN PRN PRN Reason: Nausea Oxycodone HCl (Oxyir) 5 mg PO Q4H PRN PRN PRN Reason: Moderate Pain (pain scale 4-5) Promethazine HCl (Phenergan Iv) 12.5 mg IV Q6H PRN PRN PRN Reason: NAUSEA/VOMITING Psyllium Hydrophilic Mucilloid (Metamucil) 1 packet PO DAILY PRN PRN PRN Reason: CONSTIPATION Senna/Docusate Sodium (Senokot-S, Loida-Colace) 2 tablet PO BID [facility] Last Admin: 06/23/17 08:34 Dose: Not Given Sodium Chloride () 5 - 30 ml IV UD PRN PRN Reason: SALINE FLUSH Last Admin: 06/21/17 09:30 Dose: 10 ml - Past Medical History Past Medical History (Chronic Problems): Chronic Problems HTN (hypertension) (Chronic) HLD (hyperlipidemia) (Chronic) Chronic lymphedema (Chronic) Iron deficiency anemia (Chronic) Morbid obesity (Chronic) Chronic venous stasis dermatitis (Chronic) - Past Surgical History Surgical History: - - Denies any surgical history. - Social History Marital Status: - lives with son Smoking Status: Never smoker Alcohol: None Drugs: None - Family History Maternal History Items: - - She denies any marked maternal or paternal family history including heart disease, diabetes, cancer. Paternal History Items: - - She denies any marked maternal or paternal family history including heart disease, diabetes, cancer. Review of Systems Constitutional: Reports: Weakness. Denies: Anorexia, Chills, Fever HEENT: Denies: Difficulty Hearing Cardiovascular: Reports: Edema. Denies: Chest Pain, Palpitations, Syncope Respiratory: Denies: Cough, Shortness of Breath Gastrointestinal: Denies: Abdominal Pain, Diarrhea, Nausea, Vomiting Genitourinary: Reports: Dysuria, - - dark urine, flank pain resolved after stent placement. Denies: Hematuria Musculoskeletal: Reports: - - generalized weakness Skin: Denies: Rash Neurological: Reports: -. Denies: Balance problems, Tremor, Seizures Hematologic/ Lymphatic: Denies: Anemia, Hx of blood clot Patient Problems: Active and Suspected Problems Left nephrolithiasis (Acute) Hydroureter, left (Acute) Hydronephrosis, left (Acute) Acute UTI (Acute) - Physical Exam General: Alert, Oriented x3, Cooperative, No apparent distress HEENT: PERRLA, EOMI Oral: Dry Mucosa Neck: Supple Lungs: Rales - faint right base Cardiovascular: Regular rate Abdomen: Bowel Sounds Present, Soft, Non Tender, Non-Distended, Obese Extremities: Edema - to abdomen Skin: No rashes Musculoskeletal: No Muscle Wasting Neurological: Cranial nerves II-XII grossly intact Psych/Mental Status: Normal Affect, Appropriate, Alert and oriented to time, place, person, mood and affect Vital Signs Temp Pulse Resp BP Pulse Ox 98.1 F 60 18 180/77 H 97 06/23/17 08:30 06/23/17 08:32 06/23/17 08:30 06/23/17 08:30 06/23/17 08:30 Oxygen Flow Rate (L/min) 1 Oxygen Delivery Method Nasal Cannula Weight: 106.7 kg Body Mass Index (BMI) 44.4 Finger Stick Blood Glucose 117 Intake and Output for Last 24 Hours 06/21/17 06/22/17 06/23/17 23:59 23:59 23:59 Intake Total 2483 / 2483 2465 / 2465 502 / 502 Output Total 170 / 170 380 / 380 155 / 155 Balance 2313 / 2313 2085 / 2085 347 / 347 Microbiology Past 72 Hours 06/20/17 21:23 Urine Culture - Final Urine, Cystoscopy Enterobacter aerogenes Laboratory Tests Past 24 Hrs 06/22/17 06/22/17 06/22/17 11:40 11:40 11:40 WBC RBC Hgb Hct MCV MCH MCHC RDW RDW Differential Plt Count MPV Sodium Potassium Chloride Carbon Dioxide BUN Creatinine Estim Creat Clear Calc Est GFR (MDRD) Af Amer Est GFR (MDRD) Non-Af BUN/Creatinine Ratio Glucose Calcium Phosphorus Albumin Urine Color Brown Urine Clarity Cloudy Urine pH 5.0 Ur Specific [place] 1.020 Urine Protein 100 H Urine Glucose (UA) Normal Urine Ketones 5 H Urine Occult Blood 250 H Urine Nitrite Positive H Urine Bilirubin 1 H Urine Urobilinogen Normal Ur Leukocyte Esterase 500 H Urine RBC > 100 SEEN Urine WBC 10-25 SEEN Ur Squamous Epith Cells 0 SEEN Urine Bacteria 1+ Urine Mucus 0 SEEN Urine Yeast 2+ Ur Random Sodium 39 Urine Creatinine 116.00 06/23/17 06/23/17 05:40 05:40 WBC 22.6 H RBC 3.29 L Hgb 9.5 L Hct 30.4 L MCV 92.4 MCH 28.9 MCHC 31.3 L RDW 16.6 H RDW Differential 56.1 H Plt Count 224 MPV 10.4 Sodium 140 Potassium 4.4 Chloride 106 Carbon Dioxide 23.0 BUN 57 H Creatinine 3.85 H Estim Creat Clear Calc 8.50 Est GFR (MDRD) Af Amer 14 L Est GFR (MDRD) Non-Af 12 L BUN/Creatinine Ratio 14.8 Glucose 166 H Calcium 8.3 L Phosphorus 4.9 Albumin 2.6 L Urine Color Urine Clarity Urine pH Ur Specific [place] Urine Protein Urine Glucose (UA) Urine Ketones Urine Occult Blood Urine Nitrite Urine Bilirubin Urine Urobilinogen Ur Leukocyte Esterase Urine RBC Urine WBC Ur Squamous Epith Cells Urine Bacteria Urine Mucus Urine Yeast Ur Random Sodium Urine Creatinine POC Glucose 06/23/17 06/22/17 06/22/17 06:51 21:03 16:36 POC Glucose 157 H 182 H 159 H 06/22/17 11:34 POC Glucose 170 H Clinical Impression(s) from Imaging Studies Chest X-Ray 06/21/17 08:53 IMPRESSION: CHF with cardiac enlargement and edema. Electronically Signed: Richmond Solano MD at 11:50 EDT , Service support , KUB X-Ray 06/21/17 09:00 IMPRESSION: Left urinary stent. Electronically Signed: Richmond Solano MD at 11:53 EDT , Service support , Assessment/Plan Active and Suspected Problems Left nephrolithiasis (Acute) Hydroureter, left (Acute) Hydronephrosis, left (Acute) Acute UTI (Acute) 1. RUBINA with low FENA to suggest prerenal event however creatinine continues to rise from creatinine 1.2 to 3.85 today despite iv hydration and correction of hypotension. May have ATN from sepsis syndrome. Avoid nephrotoxins. 2. Obstructed left kidney stone s/p ureteral stent 3. Enterobacter aerogenes UTI with leukocytosis intermediate coverage with rocephin. Switched to cipro renal dose. WBC 27K on admit to 22.6K today 4. DM 2 agree with discontinuation of metformin 5. HTN adjust BP meds as needed. 6. Morbid obesity with hypoventilation syndrome. 7. Anasarca with hypoalbuminemia. Oxygenation stable. Lasix as needed 8. Hyperkalemia corrected with kayexalate. Follow low K diet.
[2017-06-23 12:06] LABS: Bedside Glucose 176 mg/dL (70-110)
[2017-06-23] MEDS: hydrALAZINE 20 MG/ML Vial 10 MG IV (12:07)
[2017-06-23] MEDS: Ferrous Sulfate 325 MG Tablet PO ×2 (12:10→17:16)
--- NOTE | 2017-06-23 12:56 | PCM.PROGNOTE ---
<Maite Tineo - Last Filed: 06/23/17 13:29> Patient Problems: Active and Suspected Problems Left nephrolithiasis (Acute) Hydroureter, left (Acute) Hydronephrosis, left (Acute) Acute UTI (Acute) Subjective: Patient seen and examined. Denies fever, chills. Denies chest pain, shortness of breath. Denies flank pain, lower abdominal pain. Denies other complaints. - Physical Exam General: Alert, Oriented x3, Cooperative, No apparent distress HEENT: Atraumatic, PERRLA, EOMI, Normocephalic Neck: Supple, No JVD, Negative Carotid Bruits Lungs: Diminished, - - Minimal diffuse crackles. Cardiovascular: Regular Rhythm, Normal S1, Normal S2, No murmurs, Bradycardic Abdomen: Bowel Sounds Present, Soft, Non Tender, Non-Distended, Obese Extremities: No clubbing, No cyanosis, Edema - Bilateral lower extremities, bilateral hands Skin: No rashes, No breakdown Musculoskeletal: No Tenderness to Palpation of Joints or Extremities Neurological: Cranial nerves II-XII grossly intact, Neuro grossly intact Psych/Mental Status: Normal Affect, Appropriate Vital Signs Temp Pulse Resp BP Pulse Ox 98.0 F 52 L 18 172/83 H 97 06/23/17 11:56 06/23/17 12:07 06/23/17 11:56 06/23/17 11:56 06/23/17 11:56 Oxygen Flow Rate (L/min) 1 Oxygen Delivery Method Nasal Cannula Weight: 106.7 kg Body Mass Index (BMI) 44.4 Finger Stick Blood Glucose 117 Intake and Output for Last 24 Hours 06/21/17 06/22/17 06/23/17 23:59 23:59 23:59 Intake Total 2483 / 2483 2465 / 2465 1362 / 1362 Output Total 170 / 170 380 / 380 280 / 280 Balance 2313 / 2313 2085 / 2085 1082 / 1082 Microbiology Past 72 Hours 06/20/17 21:23 Urine Culture - Final Urine, Cystoscopy Enterobacter aerogenes Laboratory Tests Past 24 Hrs 06/23/17 06/23/17 05:40 05:40 WBC 22.6 H RBC 3.29 L Hgb 9.5 L Hct 30.4 L MCV 92.4 MCH 28.9 MCHC 31.3 L RDW 16.6 H RDW Differential 56.1 H Plt Count 224 MPV 10.4 Sodium 140 Potassium 4.4 Chloride 106 Carbon Dioxide 23.0 BUN 57 H Creatinine 3.85 H Estim Creat Clear Calc 8.50 Est GFR (MDRD) Af Amer 14 L Est GFR (MDRD) Non-Af 12 L BUN/Creatinine Ratio 14.8 Glucose 166 H Calcium 8.3 L Phosphorus 4.9 Albumin 2.6 L POC Glucose 06/23/17 06/23/17 06/22/17 11:48 06:51 21:03 POC Glucose 176 H 157 H 182 H 06/22/17 16:36 POC Glucose 159 H Medical Necessity - Tobacco Use Smoking Status: Never smoker Tobacco Use: Non-smoker Assessment/Plan Active and Suspected Problems Left nephrolithiasis (Acute) Hydroureter, left (Acute) Hydronephrosis, left (Acute) Acute UTI (Acute) Patient is a 82-year-old female admitted 06/20/2017 due to left CVA tenderness and dysuria. She has a past medical history of morbid obesity, hypoventilation syndrome, hypertension, hyperlipidemia, type 2 diabetes mellitus, chronic venous stasis and chronic bilateral lower extremity lymphedema, history of nephrolithiasis. 1. Acute left nephrolithiasis and acute Enterobacter aerogenes cystitis with associated sepsis present on admission-status post cystoscopy and left stent placement 06/20/[address] at outside facility showed left hydroureter and hydronephrosis. KUB today showed left urinary stent. Fever improving. WBC 27 on admission. Switch to IV Cipro. Urology consulted. Plan to leave Garcia in place for the next few days. When patient is stable she will need to return to the OR for left ureteroscopy and laser lithotripsy. It is possible this will take place as outpatient. 2. Acute diastolic CHF with associated acute hypoxia-chest x-ray shows CHF with cardiac enlargement and edema. Echocardiogram showed an ejection fraction of 55%, moderate tricuspid valve insufficiency, moderate pulmonary hypertension with RVSP 52 mmHg. Patient received IV Lasix ?2. Home oral Lasix regimen discontinued by nephrology. Output slowly improving. Strict I's and O's. 3. New onset paroxysmal atrial fibrillation-currently sinus rhythm. Patient has had repeat episodes of atrial fibrillation briefly during admission. Patient was started on metoprolol 25 mg twice daily for rate control. Continue aspirin. 4. Acute kidney injury-nephrology consulted. Creat continues to increase despite IV hydration. Nephrology suspects patient may have ATN from sepsis syndrome. Continue to hold nephrotoxin medications as noted above. Trend BMP. 5. Type 2 diabetes mellitus-hold oral regimen. ADA diet. Accu-Cheks before meals at bedtime with sliding scale insulin. 6. Hypertension-stable, continue home regimen. 7. Hyperlipidemia-continue statin. 8. Chronic venous stasis and chronic bilateral lower extremity lymphedema-continue Hadley wraps bilateral lower extremities. 9. Iron deficiency anemia-stable, continue iron supplementation. 10. Morbid obesity-nutrition consult. Encouraged diet and lifestyle modifications. DVT prophylaxis-SCDs. This patient was seen by LOIDA Lopez under the supervision of Dr. Weiss. <Ingrid Weiss - Last Filed: 06/23/17 16:44> - Physical Exam Vital Signs Temp Pulse Resp BP Pulse Ox 98.0 F 63 18 172/83 H 97 06/23/17 11:56 06/23/17 13:39 06/23/17 11:56 06/23/17 11:56 06/23/17 11:56 Oxygen Flow Rate (L/min) 1 Oxygen Delivery Method Nasal Cannula Weight: 106.7 kg Body Mass Index (BMI) 44.4 Finger Stick Blood Glucose 117 Intake and Output for Last 24 Hours 06/21/17 06/22/17 06/23/17 23:59 23:59 23:59 Intake Total 2483 / 2483 2465 / 2465 1362 / 1362 Output Total 170 / 170 380 / 380 280 / 280 Balance 2313 / 2313 2085 / 2085 1082 / 1082 Microbiology Past 72 Hours 06/20/17 21:23 Urine Culture - Final Urine, Cystoscopy Enterobacter aerogenes Laboratory Tests Past 24 Hrs 06/23/17 06/23/17 05:40 05:40 WBC 22.6 H RBC 3.29 L Hgb 9.5 L Hct 30.4 L MCV 92.4 MCH 28.9 MCHC 31.3 L RDW 16.6 H RDW Differential 56.1 H Plt Count 224 MPV 10.4 Sodium 140 Potassium 4.4 Chloride 106 Carbon Dioxide 23.0 BUN 57 H Creatinine 3.85 H Estim Creat Clear Calc 8.50 Est GFR (MDRD) Af Amer 14 L Est GFR (MDRD) Non-Af 12 L BUN/Creatinine Ratio 14.8 Glucose 166 H Calcium 8.3 L Phosphorus 4.9 Albumin 2.6 L POC Glucose 06/23/17 06/23/17 06/22/17 11:48 06:51 21:03 POC Glucose 176 H 157 H 182 H 06/22/17 16:36 POC Glucose 159 H Assessment/Plan Patient was seen and examined independently. I agree with the interval history, physical exam and assessment and plan as outlined by NON LICENSED NUCLEAR PLANT OPERATOR, Maite Tineo. Patient appears forgetful. Denies CP, SOB, fever. Vitals, labs and medications reviewed. Appreciate nephrology consult, will follow up on BMP in a.m. Code Visit Inpatient E&M: 48916 Subs Hosp L3
--- NOTE | 2017-06-23 13:05 | PN_ITS ---
Addendum entered and electronically signed by LOIDA Lopez 06/23/17 13:33: Code Visit Sepsis criteria: Temperature 100.1, tachycardia, WBC 27.0, creatinine 2.12 on admission. Unknown if acute kidney injury present on admission due to unknown baseline kidney function. Original Note: <Maite Tineo - Last Filed: 06/23/17 13:29> Patient Problems: Active and Suspected Problems Left nephrolithiasis (Acute) Hydroureter, left (Acute) Hydronephrosis, left (Acute) Acute UTI (Acute) Subjective: Patient seen and examined. Denies fever, chills. Denies chest pain, shortness of breath. Denies flank pain, lower abdominal pain. Denies other complaints. - Physical Exam General: Alert, Oriented x3, Cooperative, No apparent distress HEENT: Atraumatic, PERRLA, EOMI, Normocephalic Neck: Supple, No JVD, Negative Carotid Bruits Lungs: Diminished, - - Minimal diffuse crackles. Cardiovascular: Regular Rhythm, Normal S1, Normal S2, No murmurs, Bradycardic Abdomen: Bowel Sounds Present, Soft, Non Tender, Non-Distended, Obese Extremities: No clubbing, No cyanosis, Edema - Bilateral lower extremities, bilateral hands Skin: No rashes, No breakdown Musculoskeletal: No Tenderness to Palpation of Joints or Extremities Neurological: Cranial nerves II-XII grossly intact, Neuro grossly intact Psych/Mental Status: Normal Affect, Appropriate Vital Signs Temp Pulse Resp BP Pulse Ox 98.0 F 52 L 18 172/83 H 97 06/23/17 11:56 06/23/17 12:07 06/23/17 11:56 06/23/17 11:56 06/23/17 11:56 Oxygen Flow Rate (L/min) 1 Oxygen Delivery Method Nasal Cannula Weight: 106.7 kg Body Mass Index (BMI) 44.4 Finger Stick Blood Glucose 117 Intake and Output for Last 24 Hours 06/21/17 06/22/17 06/23/17 23:59 23:59 23:59 Intake Total 2483 / 2483 2465 / 2465 1362 / 1362 Output Total 170 / 170 380 / 380 280 / 280 Balance 2313 / 2313 2085 / 2085 1082 / 1082 Microbiology Past 72 Hours 06/20/17 21:23 Urine Culture - Final Urine, Cystoscopy Enterobacter aerogenes Laboratory Tests Past 24 Hrs 06/23/17 06/23/17 05:40 05:40 WBC 22.6 H RBC 3.29 L Hgb 9.5 L Hct 30.4 L MCV 92.4 MCH 28.9 MCHC 31.3 L RDW 16.6 H RDW Differential 56.1 H Plt Count 224 MPV 10.4 Sodium 140 Potassium 4.4 Chloride 106 Carbon Dioxide 23.0 BUN 57 H Creatinine 3.85 H Estim Creat Clear Calc 8.50 Est GFR (MDRD) Af Amer 14 L Est GFR (MDRD) Non-Af 12 L BUN/Creatinine Ratio 14.8 Glucose 166 H Calcium 8.3 L Phosphorus 4.9 Albumin 2.6 L POC Glucose 06/23/17 06/23/17 06/22/17 11:48 06:51 21:03 POC Glucose 176 H 157 H 182 H 06/22/17 16:36 POC Glucose 159 H Medical Necessity - Tobacco Use Smoking Status: Never smoker Tobacco Use: Non-smoker Assessment/Plan Active and Suspected Problems Left nephrolithiasis (Acute) Hydroureter, left (Acute) Hydronephrosis, left (Acute) Acute UTI (Acute) Patient is a 82-year-old female admitted 06/20/2017 due to left CVA tenderness and dysuria. She has a past medical history of morbid obesity, hypoventilation syndrome, hypertension, hyperlipidemia, type 2 diabetes mellitus, chronic venous stasis and chronic bilateral lower extremity lymphedema, history of nephrolithiasis. 1. Acute left nephrolithiasis and acute Enterobacter aerogenes cystitis with associated sepsis present on admission-status post cystoscopy and left stent placement 06/20/[address] at outside facility showed left hydroureter and hydronephrosis. KUB today showed left urinary stent. Fever improving. WBC 27 on admission. Switch to IV Cipro. Urology consulted. Plan to leave Garcia in place for the next few days. When patient is stable she will need to return to the OR for left ureteroscopy and laser lithotripsy. It is possible this will take place as outpatient. 2. Acute diastolic CHF with associated acute hypoxia-chest x-ray shows CHF with cardiac enlargement and edema. Echocardiogram showed an ejection fraction of 55%, moderate tricuspid valve insufficiency, moderate pulmonary hypertension with RVSP 52 mmHg. Patient received IV Lasix ?2. Home oral Lasix regimen discontinued by nephrology. Output slowly improving. Strict I's and O's. 3. New onset paroxysmal atrial fibrillation-currently sinus rhythm. Patient has had repeat episodes of atrial fibrillation briefly during admission. Patient was started on metoprolol 25 mg twice daily for rate control. Continue aspirin. 4. Acute kidney injury-nephrology consulted. Creat continues to increase despite IV hydration. Nephrology suspects patient may have ATN from sepsis syndrome. Continue to hold nephrotoxin medications as noted above. Trend BMP. 5. Type 2 diabetes mellitus-hold oral regimen. ADA diet. Accu-Cheks before meals at bedtime with sliding scale insulin. 6. Hypertension-stable, continue home regimen. 7. Hyperlipidemia-continue statin. 8. Chronic venous stasis and chronic bilateral lower extremity lymphedema- continue Hadley wraps bilateral lower extremities. 9. Iron deficiency anemia-stable, continue iron supplementation. 10. Morbid obesity-nutrition consult. Encouraged diet and lifestyle modifications. DVT prophylaxis-SCDs. This patient was seen by LOIDA Lopez under the supervision of Dr. Weiss. <Ingrid Weiss - Last Filed: 06/23/17 16:44> - Physical Exam Vital Signs Temp Pulse Resp BP Pulse Ox 98.0 F 63 18 172/83 H 97 06/23/17 11:56 06/23/17 13:39 06/23/17 11:56 06/23/17 11:56 06/23/17 11:56 Oxygen Flow Rate (L/min) 1 Oxygen Delivery Method Nasal Cannula Weight: 106.7 kg Body Mass Index (BMI) 44.4 Finger Stick Blood Glucose 117 Intake and Output for Last 24 Hours 06/21/17 06/22/17 06/23/17 23:59 23:59 23:59 Intake Total 2483 / 2483 2465 / 2465 1362 / 1362 Output Total 170 / 170 380 / 380 280 / 280 Balance 2313 / 2313 2085 / 2085 1082 / 1082 Microbiology Past 72 Hours 06/20/17 21:23 Urine Culture - Final Urine, Cystoscopy Enterobacter aerogenes Laboratory Tests Past 24 Hrs 06/23/17 06/23/17 05:40 05:40 WBC 22.6 H RBC 3.29 L Hgb 9.5 L Hct 30.4 L MCV 92.4 MCH 28.9 MCHC 31.3 L RDW 16.6 H RDW Differential 56.1 H Plt Count 224 MPV 10.4 Sodium 140 Potassium 4.4 Chloride 106 Carbon Dioxide 23.0 BUN 57 H Creatinine 3.85 H Estim Creat Clear Calc 8.50 Est GFR (MDRD) Af Amer 14 L Est GFR (MDRD) Non-Af 12 L BUN/Creatinine Ratio 14.8 Glucose 166 H Calcium 8.3 L Phosphorus 4.9 Albumin 2.6 L POC Glucose 06/23/17 06/23/17 06/22/17 11:48 06:51 21:03 POC Glucose 176 H 157 H 182 H 06/22/17 16:36 POC Glucose 159 H Assessment/Plan Patient was seen and examined independently. I agree with the interval history, physical exam and assessment and plan as outlined by AUDIT ASSOCIATE, Maite Tineo. Patient appears forgetful. Denies CP, SOB, fever. Vitals, labs and medications reviewed. Appreciate nephrology consult, will follow up on BMP in a.m. Code Visit Inpatient E&M: 91061 [facility] Hosp L3
--- NOTE | 2017-06-23 13:42 | CASEMGMT ---
Physician said patient may need placement. SW met with patient on Friday and she declined going to SNF. SW spoke with patient and her son and they both agreed the plan is home. Patient is currently active with [facility]. Plan: home with son with resumption of [facility]. Monica BAEZ
--- NOTE | 2017-06-23 15:56 | NURSING ---
was asked to see patient for wounds to bilateral lower legs. removed TAYLOR wraps. there was no drainage noted. there is a large amount of dry flaky yellow skin. there is one small open area noted to the right morris. measures approx 0.8cm x 0.8cm. washed legs and feet with soap and water. was able to remove a large portion of the dry skin. pink skin noted underneath. patient would not allow this nurse to apply lotion. reapplied the TAYLOR wraps from the base of the toes to just below the knees. Pt tolerated well. will monitor.
[2017-06-23 16:51] LABS: Bedside Glucose 207 mg/dL (70-110)
[2017-06-23] MEDS: 0.9% Normal Saline 1,000 ML 100 ML IV (21:09)
[2017-06-23] MEDS: Atorvastatin Calcium 10 MG Tablet PO (21:11)
[2017-06-23 23:16] LABS: Bedside Glucose 170 mg/dL (70-110)
[2017-06-24] VITALS (21 sets, daily range): BP systolic 152–197; BP diastolic 72–95; PULSE 61–73; RESP 16–24; TEMP 36.5–36.9; O2SAT 91–94; BMI 44.4
[2017-06-24] MEDS: hydrALAZINE 20 MG/ML Vial 10 MG IV ×2 (03:36→03:43)
[2017-06-24] MEDS: 0.9% NaCl Peripheral Flush Adult/Peds IV ×4 (03:36→18:49)
--- NOTE | 2017-06-24 03:43 | NURSING ---
Patients blood pressure is elevated again - 194/95 - PRN Apresoline 10mg given at this time for BP
--- NOTE | 2017-06-24 04:17 | NURSING ---
Patient moved from bed to chair with aide at this time - bath given. PT appears to be very [place] - called respiratory at this time to request a breathing treatment
[2017-06-24] MEDS: Albuterol 2.5 MG/3 ML VIAL.NEB. INHALATION (04:23)
[2017-06-24] MEDS: Furosemide 20 MG/2 ML VIAL IV ×2 (05:10→18:49)
[2017-06-24] MEDS: Levothyroxine 137 MCG Tablet PO (05:11)
[2017-06-24 07:11] LABS: Bedside Glucose 184 mg/dL (70-110)
[2017-06-24 07:30] LABS: Hematocrit 21.9 % (37-47); Hemoglobin 6.8 g/dl (12.0-15.0); Mean Corp Hgb Conc 31.1 g/gl (32-36); Mean Corpuscular Hgb 28.6 pg (27.0-32.0); Platelet Count 137 K/mm3 (150-450); RBC Distribution Width CV 16.8 % (11.6-14.6); Red Blood Count 2.38 M/mm3 (4.2-5.4); White Blood Count 11.4 K/mm3 (4.4-11.0)
[2017-06-24 07:35] LABS: Scan Indicated on CBC? Y/N NO
[2017-06-24 07:36] LABS: Albumin, Serum 2.2 g/dL (3.2-5.0); BUN 70 mg/dL (7-18); BUN/Creat Ratio 18.1 RATIO (10-20); Calcium,Total 8.3 mg/dL (8.5-10.1); Chloride 108 mmol/L (98-107); Creatinine, Serum 3.86 mg/dL (0.55-1.02); EST Glomerular Filtration Rate 12 mL/min (>60); Est Glom Filt Rate - Afr Amer 14 mL/min (>60); Estimated Creatinine Clearance 8.48 ml/min; Glucose 175 mg/dL (74-106); Phosphorus 3.8 mg/dL (2.5-4.9); Potassium 4.2 mmol/L (3.5-5.1); Sodium Level 136 mmol/L (136-145)
[2017-06-24] MEDS: Aspirin 81 MG TAB.CHEW PO (10:29)
[2017-06-24] MEDS: Loratadine 10 MG Tablet PO (10:29)
[2017-06-24] MEDS: Famotidine 20 MG Tablet PO ×2 (10:30→22:21)
[2017-06-24] MEDS: Metoprolol Tartrate 25 MG Tablet PO ×2 (10:30→22:19)
[2017-06-24] MEDS: Senna/Docusate Sodium 1 Tablet 2 TABLET PO (10:30)
[2017-06-24] MEDS: amLODIPine 5 MG Tablet PO ×2 (10:30→14:58)
[2017-06-24] MEDS: Nystatin Powder 15gm Bottle 1 APPLIC TOPICAL ×2 (10:31→22:21)
--- NOTE | 2017-06-24 11:31 | NURSING ---
Removed TAYLOR wraps from bilateral lower legs. washed legs with soap and water and patted dry. patient would not let this nurse apply lotion to legs. much less dry, flaky skin noted. still some moderate edema noted, but patient states appears much improved. reapplied the TAYLOR wraps from the base of the toes to just below the knee. pt tolerated well.
[2017-06-24 11:45] LABS: Bedside Glucose 178 mg/dL (70-110)
[2017-06-24 11:45] LABS: Hematocrit 32.1 % (37-47); Hemoglobin 10.2 g/dl (12.0-15.0)
--- NOTE | 2017-06-24 12:51 | PN_ITS ---
<Maite Tineo - Last Filed: 06/24/17 12:51> Patient Problems: Active and Suspected Problems Left nephrolithiasis (Acute) Hydroureter, left (Acute) Hydronephrosis, left (Acute) Acute UTI (Acute) Subjective: Patient seen and examined. Complains of mild wheezing. Denies shortness of breath. Denies chest pain. Patient has been poked multiple times for lab draw this morning. She is agreeable to midline placement. She denies dizziness, lightheadedness. Denies other complaints. - Physical Exam General: Alert, Oriented x3, Cooperative, No apparent distress HEENT: Atraumatic, PERRLA, EOMI, Normocephalic Neck: Supple, No JVD, Negative Carotid Bruits Lungs: Diminished, Wheezes, - - Minimal diffuse crackles Cardiovascular: Regular rate, Regular Rhythm, Normal S1, Normal S2, No murmurs Abdomen: Bowel Sounds Present, Soft, Non Tender, Non-Distended, Obese Extremities: No clubbing, No cyanosis, Edema - Bilateral lower extremities, bilateral upper extremities Musculoskeletal: No Tenderness to Palpation of Joints or Extremities Neurological: Cranial nerves II-XII grossly intact, Neuro grossly intact Psych/Mental Status: Normal Affect, Appropriate Vital Signs Temp Pulse Resp BP Pulse Ox 98.5 F 61 22 H 189/73 H 94 06/24/17 09:25 06/24/17 10:30 06/24/17 09:25 06/24/17 10:30 06/24/17 09:25 Oxygen Flow Rate (L/min) 1 Oxygen Delivery Method Room Air Weight: 106.7 kg Body Mass Index (BMI) 44.4 Finger Stick Blood Glucose 117 Intake and Output for Last 24 Hours 06/22/17 06/23/17 06/24/17 23:59 23:59 23:59 Intake Total 2465 / 2465 3479 / 3479 419 / 419 Output Total 380 / 380 655 / 655 250 / 250 Balance 2085 / 2085 2824 / 2824 169 / 169 Microbiology Past 72 Hours 06/20/17 21:23 Urine Culture - Final Urine, Cystoscopy Enterobacter aerogenes Laboratory Tests Past 24 Hrs 06/24/17 06/24/17 06/24/17 06:58 06:58 09:50 WBC 11.4 H RBC 2.38 L Hgb 6.8 L Hct 21.9 L MCV 92.0 MCH 28.6 MCHC 31.1 L RDW 16.8 H RDW Differential 56.0 H Plt Count 137 L MPV 10.0 Sodium 136 Potassium 4.2 Chloride 108 H Carbon Dioxide 16.0 L BUN 70 H Creatinine 3.86 H Estim Creat Clear Calc 8.48 Est GFR (MDRD) Af Amer 14 L Est GFR (MDRD) Non-Af 12 L BUN/Creatinine Ratio 18.1 Glucose 175 H Calcium 8.3 L Phosphorus 3.8 Albumin 2.2 L Blood Type Pending Antibody Screen Pending Crossmatch See Detail 06/24/17 09:50 WBC RBC Hgb 10.2 L Hct 32.1 L MCV MCH MCHC RDW RDW Differential Plt Count MPV Sodium Potassium Chloride Carbon Dioxide BUN Creatinine Estim Creat Clear Calc Est GFR (MDRD) Af Amer Est GFR (MDRD) Non-Af BUN/Creatinine Ratio Glucose Calcium Phosphorus Albumin Blood Type Antibody Screen Crossmatch POC Glucose 06/24/17 06/24/17 06/23/17 11:20 06:59 21:07 POC Glucose 178 H 184 H 170 H 06/23/17 16:17 POC Glucose 207 H Medical Necessity - Tobacco Use Smoking Status: Never smoker Tobacco Use: Non-smoker Assessment/Plan Active and Suspected Problems Left nephrolithiasis (Acute) Hydroureter, left (Acute) Hydronephrosis, left (Acute) Acute UTI (Acute) Patient is a 82-year-old female admitted 06/20/2017 due to left CVA tenderness and dysuria. She has a past medical history of morbid obesity, hypoventilation syndrome, hypertension, hyperlipidemia, type 2 diabetes mellitus, chronic venous stasis and chronic bilateral lower extremity lymphedema, history of nephrolithiasis. 1. Acute left nephrolithiasis and acute Enterobacter aerogenes cystitis with associated sepsis present on admission-status post cystoscopy and left stent placement 06/20/[address] at outside facility showed left hydroureter and hydronephrosis. KUB today showed left urinary stent. Fever improving. WBC 27 on admission. Improved to 11.4. Continue IV Cipro. Urology consulted. Plan to leave Garcia in place for the next few days. When patient is stable she will need to return to the OR for left ureteroscopy and laser lithotripsy. It is possible this will take place as outpatient. 2. Acute diastolic CHF with associated acute hypoxia-chest x-ray shows CHF with cardiac enlargement and edema. Echocardiogram showed an ejection fraction of 55%, moderate tricuspid valve insufficiency, moderate pulmonary hypertension with RVSP 52 mmHg. Patient received IV Lasix ?2. Home oral Lasix regimen discontinued by nephrology. Strict I's and O's. 3. New onset paroxysmal atrial fibrillation-currently sinus rhythm. Patient has had repeat episodes of atrial fibrillation briefly during admission. Patient was started on metoprolol 25 mg twice daily for rate control. Continue aspirin. 4. Acute kidney injury-nephrology consulted. Creat continues to increase despite IV hydration. IV fluids discontinued given worsening edema. Nephrology suspects patient may have ATN from sepsis syndrome. Continue to hold nephrotoxin medications as noted above. Trend BMP. 5. Type 2 diabetes mellitus-hold oral regimen. ADA diet. Accu-Cheks before meals at bedtime with sliding scale insulin. 6. Hypertension-blood pressure elevated. Amlodipine increased to 10 mg daily. Continue metoprolol 25 mg twice daily. Hydralazine 10 mg IV every 4 as needed for systolic greater than 160. 7. Hyperlipidemia-continue statin. 8. Chronic venous stasis and chronic bilateral lower extremity lymphedema- continue Hadley wraps bilateral lower extremities. 9. Acute anemia on iron deficiency anemia-stable, continue iron supplementation. Hemoglobin this morning 6.8. Repeat hemoglobin 10.2 without transfusion. Repeat H&H given the discrepancy between the two. If hemoglobin is in fact less than 7, we will transfuse 2 units packed red blood cells. Midline is being inserted for further lab draws. Trend CBC. 10. Morbid obesity-nutrition consult. Encouraged diet and lifestyle modifications. DVT prophylaxis-SCDs. This patient was seen by LOIDA Lopez under the supervision of Dr. Weiss. <Ingrid Weiss - Last Filed: 06/24/17 18:25> - Physical Exam Vital Signs Temp Pulse Resp BP Pulse Ox 97.7 F L 62 18 152/76 H 94 06/24/17 16:30 06/24/17 16:30 06/24/17 16:30 06/24/17 16:30 06/24/17 16:30 Oxygen Flow Rate (L/min) 1 Oxygen Delivery Method Room Air Weight: 106.7 kg Body Mass Index (BMI) 44.4 Finger Stick Blood Glucose 117 Intake and Output for Last 24 Hours 06/22/17 06/23/17 06/24/17 23:59 23:59 23:59 Intake Total 2465 / 2465 3479 / 3479 1879 / 1879 Output Total 380 / 380 655 / 655 1075 / 1075 Balance 2084 / 2084 2824 / 2824 804 / 804 Microbiology Past 72 Hours 06/20/17 21:23 Urine Culture - Final Urine, Cystoscopy Enterobacter aerogenes Laboratory Tests Past 24 Hrs 06/24/17 06/24/17 06/24/17 06:58 06:58 09:50 WBC 11.4 H RBC 2.38 L Hgb 6.8 L Hct 21.9 L MCV 92.0 MCH 28.6 MCHC 31.1 L RDW 16.8 H RDW Differential 56.0 H Plt Count 137 L MPV 10.0 Sodium 136 Potassium 4.2 Chloride 108 H Carbon Dioxide 16.0 L BUN 70 H Creatinine 3.86 H Estim Creat Clear Calc 8.48 Est GFR (MDRD) Af Amer 14 L Est GFR (MDRD) Non-Af 12 L BUN/Creatinine Ratio 18.1 Glucose 175 H Calcium 8.3 L Phosphorus 3.8 Albumin 2.2 L Blood Type Cancelled Antibody Screen Cancelled Crossmatch See Detail 06/24/17 06/24/17 09:50 14:30 WBC RBC Hgb 10.2 L 9.5 L Hct 32.1 L 29.4 L MCV MCH MCHC RDW RDW Differential Plt Count MPV Sodium Potassium Chloride Carbon Dioxide BUN Creatinine Estim Creat Clear Calc Est GFR (MDRD) Af Amer Est GFR (MDRD) Non-Af BUN/Creatinine Ratio Glucose Calcium Phosphorus Albumin Blood Type Antibody Screen Crossmatch POC Glucose 06/24/17 06/24/17 06/24/17 16:37 11:20 06:59 POC Glucose 159 H 178 H 184 H 06/23/17 21:07 POC Glucose 170 H Assessment/Plan atient was seen and examined independently. I agree with the interval history, physical exam and assessment and plan as outlined by MANAGER PROGRESSIVE CARE, Maite Tineo. Acute events overnight. Patient denies CP, SOB, fever. Vitals, labs and medications reviewed. Had a decrease in hemoglobin to 6.8, urine in the Garcia catheter is clear, yellow in color, doubt anemia, will repeat H&H, repeat H&H showed unchanged hemoglobin, and appears the same, quick mixer operator okay for use of Lasix if needed, will follow up with BMP in the a.m. Code Visit Inpatient E&M: 99072 Subs Hosp L2
[2017-06-24] MEDS: Ferrous Sulfate 325 MG Tablet PO ×2 (13:01→17:04)
[2017-06-24] MEDS: Ciprofloxacin 400 MG/200 ML BAG 200 MG IV (14:57)
[2017-06-24 15:00] LABS: Hematocrit 29.4 % (37-47); Hemoglobin 9.5 g/dl (12.0-15.0)
[2017-06-24 16:55] LABS: Bedside Glucose 159 mg/dL (70-110)
--- NOTE | 2017-06-24 17:44 | PCM.PN.REN ---
Patient Problems: Active and Suspected Problems Left nephrolithiasis (Acute) Hydroureter, left (Acute) Hydronephrosis, left (Acute) Acute UTI (Acute) Subjective: no nausea, vomiting +anorexia. Still with diffuse edema. Denies SOB. Creatinine plateauing at 3.8. WBC improving after change in antibx - Physical Exam General: Alert, Oriented x3 Lungs: Diminished, Rales - bases Cardiovascular: Regular rate Abdomen: Bowel Sounds Present, Soft, Non Tender, Obese Extremities: Edema - anasarca Musculoskeletal: No Muscle Wasting Psych/Mental Status: Normal Affect, Alert and oriented to time, place, person, mood and affect Vital Signs Temp Pulse Resp BP Pulse Ox 97.7 F L 62 18 152/76 H 94 06/24/17 16:30 06/24/17 16:30 06/24/17 16:30 06/24/17 16:30 06/24/17 16:30 Oxygen Flow Rate (L/min) 1 Oxygen Delivery Method Room Air Weight: 106.7 kg Body Mass Index (BMI) 44.4 Finger Stick Blood Glucose 117 Intake and Output for Last 24 Hours 06/22/17 06/23/17 06/24/17 23:59 23:59 23:59 Intake Total 2465 / 2465 3479 / 3479 919 / 919 Output Total 380 / 380 655 / 655 875 / 875 Balance 2085 / 2085 2824 / 2824 44 / 44 Microbiology Past 72 Hours 06/20/17 21:23 Urine Culture - Final Urine, Cystoscopy Enterobacter aerogenes Laboratory Tests Past 24 Hrs 06/24/17 06/24/17 06/24/17 06:58 06:58 09:50 WBC 11.4 H RBC 2.38 L Hgb 6.8 L Hct 21.9 L MCV 92.0 MCH 28.6 MCHC 31.1 L RDW 16.8 H RDW Differential 56.0 H Plt Count 137 L MPV 10.0 Sodium 136 Potassium 4.2 Chloride 108 H Carbon Dioxide 16.0 L BUN 70 H Creatinine 3.86 H Estim Creat Clear Calc 8.48 Est GFR (MDRD) Af Amer 14 L Est GFR (MDRD) Non-Af 12 L BUN/Creatinine Ratio 18.1 Glucose 175 H Calcium 8.3 L Phosphorus 3.8 Albumin 2.2 L Blood Type Cancelled Antibody Screen Cancelled Crossmatch See Detail 06/24/17 06/24/17 09:50 14:30 WBC RBC Hgb 10.2 L 9.5 L Hct 32.1 L 29.4 L MCV MCH MCHC RDW RDW Differential Plt Count MPV Sodium Potassium Chloride Carbon Dioxide BUN Creatinine Estim Creat Clear Calc Est GFR (MDRD) Af Amer Est GFR (MDRD) Non-Af BUN/Creatinine Ratio Glucose Calcium Phosphorus Albumin Blood Type Antibody Screen Crossmatch POC Glucose 06/24/17 06/24/17 06/24/17 16:37 11:20 06:59 POC Glucose 159 H 178 H 184 H 06/23/17 21:07 POC Glucose 170 H Medical Necessity - Tobacco Use Smoking Status: Never smoker Tobacco Use: Non-smoker Assessment/Plan Active and Suspected Problems Left nephrolithiasis (Acute) Hydroureter, left (Acute) Hydronephrosis, left (Acute) Acute UTI (Acute) 1. RUBINA with creatinine 3.8 suspect ATN from sepsis syndrome. Avoid nephrotoxins. 2. Obstructed left kidney stone s/p ureteral stent 3. Enterobacter aerogenes UTI with improved leukocytosis 4. DM T2 primary team mgmt 5. HTN adjust BP meds as needed. 6. Morbid obesity with hypoventilation syndrome. 7. Anasarca with hypoalbuminemia. Oxygenation stable. Lasix as needed 8. Hyperkalemia corrected with kayexalate. Follow low K diet. 9. Anemia hgb stable DW primary team
[2017-06-24] MEDS: Atorvastatin Calcium 10 MG Tablet PO (22:22)
[2017-06-24 23:46] LABS: Bedside Glucose 156 mg/dL (70-110)
[2017-06-25] VITALS (16 sets, daily range): BP systolic 151–172; BP diastolic 64–84; PULSE 66–95; RESP 18–26; TEMP 36.5–36.8; O2SAT 92–95; BMI 44.4
[2017-06-25] MEDS: Albuterol 2.5 MG/3 ML VIAL.NEB. INHALATION (03:07)
[2017-06-25] MEDS: 0.9% NaCl Peripheral Flush Adult/Peds IV ×2 (04:43→14:58)
[2017-06-25] MEDS: Levothyroxine 137 MCG Tablet PO (06:48)
[2017-06-25 07:01] LABS: Bedside Glucose 158 mg/dL (70-110)
[2017-06-25] MEDS: Senna/Docusate Sodium 1 Tablet 2 TABLET PO ×2 (08:11→22:38)
[2017-06-25] MEDS: Aspirin 81 MG TAB.CHEW PO (08:12)
[2017-06-25] MEDS: amLODIPine 10 MG Tablet PO (08:12)
[2017-06-25] MEDS: Famotidine 20 MG Tablet PO ×2 (08:14→22:38)
[2017-06-25] MEDS: Metoprolol Tartrate 25 MG Tablet PO ×2 (08:14→22:38)
[2017-06-25] MEDS: Loratadine 10 MG Tablet PO (08:15)
[2017-06-25] MEDS: Nystatin Powder 15gm Bottle 1 APPLIC TOPICAL ×2 (08:16→22:38)
--- NOTE | 2017-06-25 08:50 | PN_ITS ---
Patient Problems: Active and Suspected Problems Left nephrolithiasis (Acute) Hydroureter, left (Acute) Hydronephrosis, left (Acute) Acute UTI (Acute) Subjective: Patient was seen and examined. Had some problems with IV access. Labs drawn showed plateauing of creatinine. Patient otherwise feels well, denies any chest pain no dizziness or palpitations. Objective: Physical Exam General: Alert, Oriented x3, Cooperative, No apparent distress HEENT: Atraumatic, PERRLA, EOMI, Normocephalic Neck: Supple, No JVD, Negative Carotid Bruits Lungs: Diminished, Wheezes, - - Minimal diffuse crackles Cardiovascular: Regular rate, Regular Rhythm, Normal S1, Normal S2, No murmurs Abdomen: Bowel Sounds Present, Soft, Non Tender, Non-Distended, Obese Extremities: No clubbing, No cyanosis, Edema - Bilateral lower extremities, bilateral upper extremities Musculoskeletal: No Tenderness to Palpation of Joints or Extremities Neurological: Cranial nerves II-XII grossly intact, Neuro grossly intact Psych/Mental Status: Normal Affect, Appropriate Vitals/I&O's: Vital Signs Temp Pulse Resp BP Pulse Ox 98.3 F 95 26 H 151/83 H 93 06/25/17 02:57 06/25/17 08:14 06/25/17 03:07 06/25/17 02:57 06/25/17 07:40 Oxygen Flow Rate (L/min) 1 Oxygen Delivery Method Room Air Weight: 106.7 kg Body Mass Index (BMI) 44.4 Finger Stick Blood Glucose 117 Intake and Output for Last 24 Hours 06/23/17 06/24/17 06/25/17 23:59 23:59 23:59 Intake Total 3479 / 3479 1879 / 1879 300 / 300 Output Total 655 / 655 1075 / 1075 1000 / 1000 Balance 2824 / 2824 804 / 804 -700 / -700 Microbiology Past 72 Hours 06/20/17 21:23 Urine, Cystoscopy Urine Culture - Final Enterobacter aerogenes Laboratory Results 06/24/17 09:50: Blood Type Cancelled, Antibody Screen Cancelled, Crossmatch See Detail 06/24/17 09:50: Hgb 10.2 L, Hct 32.1 L 06/24/17 11:20: POC Glucose 178 H 06/24/17 14:30: Hgb 9.5 L, Hct 29.4 L 06/24/17 16:37: POC Glucose 159 H 06/24/17 22:10: POC Glucose 156 H 06/25/17 06:48: POC Glucose 158 H Current Medications Acetaminophen (Tylenol) 650 mg PO Q6H PRN PRN PRN Reason: Mild Pain (scale 0-3)/T>100.7 Albuterol Sulfate (Ventolin Aerosols) 2.5 mg INHALATION Q2H PRN PRN PRN Reason: dyspnea, wheezing Last Admin: 06/25/17 03:07 Dose: 2.5 mg Amlodipine Besylate (Norvasc) 10 mg PO DAILY [facility] Last Admin: 06/25/17 08:12 Dose: 10 mg Aspirin (Aspirin, Baby) 81 mg PO DAILY@0800 [facility] Last Admin: 06/25/17 08:12 Dose: 81 mg Atorvastatin Calcium (Lipitor) 10 mg PO QHS [facility] Last Admin: 06/24/17 22:22 Dose: 10 mg Dextrose (D50w Syringe) 0 gm IV X1 PRN; Protocol PRN Reason: Hypoglycemia Famotidine (Pepcid) 20 mg PO BID [facility] Last Admin: 06/25/17 08:14 Dose: 20 mg Ferrous Sulfate (Ferrous Sulfate) 325 mg PO BID@1200,1700 [facility] Last Admin: 06/24/17 17:04 Dose: 325 mg Glucagon () 1 mg IM .X1 PRN PRN Reason: Hypoglycemia Hydralazine HCl (Apresoline Iv) 10 mg IV Q4H PRN PRN PRN Reason: SBP > 160 Last Admin: 06/24/17 03:43 Dose: 10 mg Ciprofloxacin (Cipro) 400 mg in 200 mls @ 200 mls/hr IV Q24 [facility] Last Admin: 06/24/17 14:57 Dose: 200 mls/hr Insulin Aspart (Novolog Flexpen (Bkc)) 0 units SC 0800,1200,1700,2200 [facility] PRN Reason: Protocol Last Admin: 06/25/17 08:11 Dose: 1 units Levothyroxine Sodium (Synthroid) 137 mcg PO DAILY@0600 [facility] Last Admin: 06/25/17 06:48 Dose: 137 mcg Loratadine (Claritin) 10 mg PO DAILY [facility] Last Admin: 06/25/17 08:15 Dose: 10 mg Metoprolol Tartrate (Lopressor (Beta Arpit)) 25 mg PO BID [facility] Last Admin: 06/25/17 08:14 Dose: 25 mg Morphine Sulfate () 2 - 4 mg IV Q3H PRN PRN PRN Reason: Severe Pain (pain scale 6-10) Last Admin: 06/20/17 19:58 Dose: 4 mg Morphine Sulfate () 1 - 2 mg IV Q4H PRN PRN PRN Reason: Moderate Pain (pain scale 4-5) Nystatin (Mycostatin Powder) 1 applic TOPICAL BID [place] PRN Reason: Protocol Last Admin: 06/25/17 08:16 Dose: 1 applicatio Ondansetron HCl (Zofran) 4 mg IV Q8H PRN PRN PRN Reason: Nausea Oxycodone HCl (Oxyir) 5 mg PO Q4H PRN PRN PRN Reason: Moderate Pain (pain scale 4-5) Promethazine HCl (Phenergan Iv) 12.5 mg IV Q6H PRN PRN PRN Reason: NAUSEA/VOMITING Psyllium Hydrophilic Mucilloid (Metamucil) 1 packet PO DAILY PRN PRN PRN Reason: CONSTIPATION Senna/Docusate Sodium (Senokot-S, Loida-Colace) 2 tablet PO BID [facility] Last Admin: 06/25/17 08:11 Dose: 2 tablet Sodium Chloride () 5 - 30 ml IV UD PRN PRN Reason: SALINE FLUSH Last Admin: 06/25/17 04:43 Dose: 30 ml Medical Necessity - Tobacco Use Smoking Status: Never smoker Tobacco Use: Non-smoker Assessment/Plan Active and Suspected Problems Left nephrolithiasis (Acute) Hydroureter, left (Acute) Hydronephrosis, left (Acute) Acute UTI (Acute) 82-year-old female admitted on 06/20/2017 with left CVA tenderness and dysuria. She has a past medical history of morbid obesity, hypoventilation syndrome, hypertension, hyperlipidemia, type 2 diabetes mellitus, chronic venous stasis and chronic bilateral lower extremity lymphedema, history of nephrolithiasis. 1. Acute left nephrolithiasis and acute Enterobacter aerogenes cystitis with associated sepsis present on admission-status post cystoscopy and left stent placement 06/20/[address] at outside facility showed left hydroureter and hydronephrosis. KUB today showed left urinary stent. Patient is on IV cipro (day 6), aiming for 10-14 days total antibiotics. Per urology, plan is return to the OR for left ureteroscopy and laser lithotripsy when stable either inpatient or outpatient. Suspect will be done outpatient, will clarify with urology. 2. Acute diastolic CHF with associated acute hypoxia-currently not able to receive Lasix because of worsening kidney function, will continue to monitor, continue strict I's and O's. 3. New onset paroxysmal atrial fibrillation, in NSR now, on metoprolol, aspirin. 4. Acute kidney injury on CKD, Cr plateaued at 3.8, nephrology following 5. Type 2 diabetes mellitus, stable BS, on ADA diet, will continue Accu-Cheks before meals at bedtime with sliding scale insulin. 6. Hypertension-controlled, on amlodipine, metoprolol, hydralazine 7. Hyperlipidemia, on statin. 8. Chronic venous stasis and chronic bilateral lower extremity lymphedema, on [place]ley wraps bilateral lower extremities. 9. Acute anemia on iron deficiency anemia-stable, continue iron supplementation. 10. Morbid obesity 11. DVT prophylaxis-SCDs. Code Visit Inpatient E&M: 73757 Subs Hosp L2
[2017-06-25] MEDS: Ciprofloxacin 400 MG/200 ML BAG 200 MG IV (09:22)
[2017-06-25 09:55] LABS: Hematocrit 29.1 % (37-47); Hemoglobin 9.5 g/dl (12.0-15.0); Mean Corp Hgb Conc 32.6 g/gl (32-36); Mean Corpuscular Hgb 29.1 pg (27.0-32.0); Mean Corpuscular Volume 89.3 fL (81-99); Mean Platelet Vol. 10.3 fl (6.2-12.0); Platelet Count 233 K/mm3 (150-450); RBC Distribution Width SD 50.5 fl (35.1-43.9); Red Blood Count 3.26 M/mm3 (4.2-5.4); White Blood Count 13.2 K/mm3 (4.4-11.0)
[2017-06-25 09:57] LABS: Scan Indicated on CBC? Y/N NO
[2017-06-25 10:04] LABS: Albumin, Serum 2.2 g/dL (3.2-5.0); BUN 78 mg/dL (7-18); BUN/Creat Ratio 20.2 RATIO (10-20); Calcium,Total 8.3 mg/dL (8.5-10.1); Chloride 106 mmol/L (98-107); Creatinine, Serum 3.87 mg/dL (0.55-1.02); EST Glomerular Filtration Rate 12 mL/min (>60); Est Glom Filt Rate - Afr Amer 14 mL/min (>60); Estimated Creatinine Clearance 8.46 ml/min; Glucose 247 mg/dL (74-106); Phosphorus 3.3 mg/dL (2.5-4.9); Potassium 4.2 mmol/L (3.5-5.1); Sodium Level 138 mmol/L (136-145)
[2017-06-25] MEDS: Ferrous Sulfate 325 MG Tablet PO ×2 (11:06→16:24)
[2017-06-25 11:21] LABS: Bedside Glucose 249 mg/dL (70-110)
--- NOTE | 2017-06-25 14:23 | NURSING ---
removed TAYLOR wraps from bilateral lower legs. washed legs and feet with soap and water and pat dry. there is still a moderated amount of edema noted. still some dry flaky skin. pt still refusing to let this nurse apply lotion to the lower legs. reapplied the TAYLOR wraps and encouraged patient to keep legs elevated. pt states she feels more SOB with legs elevated. will continue to monitor.
[2017-06-25] MEDS: Furosemide 20 MG/2 ML VIAL IV (14:57)
--- NOTE | 2017-06-25 16:23 | PCM.PN.REN ---
Patient Problems: Active and Suspected Problems Left nephrolithiasis (Acute) Hydroureter, left (Acute) Hydronephrosis, left (Acute) Acute UTI (Acute) Subjective: shortness of breath after ambulating to commode. +diarrhea. Denies nausea, vomiting but has anorexia. Dark vern urine in marino. Still with volume overload. - Physical Exam General: Alert, Oriented x3, Cooperative, - - weakness HEENT: PERRLA, EOMI Oral: Dry Mucosa Neck: Supple Lungs: Rales - faint in bases posteriorly Cardiovascular: Regular rate, Murmur Abdomen: Bowel Sounds Present, Soft, Non Tender, Distended, Obese Extremities: Edema Skin: No rashes Neurological: Cranial nerves II-XII grossly intact Psych/Mental Status: Normal Affect, Alert and oriented to time, place, person, mood and affect Vital Signs Temp Pulse Resp BP Pulse Ox 97.8 F 70 18 161/82 H 95 06/25/17 15:00 06/25/17 15:38 06/25/17 15:00 06/25/17 15:00 06/25/17 15:00 Oxygen Flow Rate (L/min) 1 Oxygen Delivery Method Room Air Weight: 106.7 kg Body Mass Index (BMI) 44.4 Finger Stick Blood Glucose 117 Intake and Output for Last 24 Hours 06/23/17 06/24/17 06/25/17 23:59 23:59 23:59 Intake Total 3479 / 3479 1879 / 1879 880 / 880 Output Total 655 / 655 1075 / 1075 1300 / 1300 Balance 2824 / 2824 804 / 804 -420 / -420 Laboratory Tests Past 24 Hrs 06/25/17 06/25/17 09:30 09:30 WBC 13.2 H RBC 3.26 L Hgb 9.5 L Hct 29.1 L MCV 89.3 MCH 29.1 MCHC 32.6 RDW 16.0 H RDW Differential 50.5 H Plt Count 233 MPV 10.3 Sodium 138 Potassium 4.2 Chloride 106 Carbon Dioxide 21.0 BUN 78 H Creatinine 3.87 H Estim Creat Clear Calc 8.46 Est GFR (MDRD) Af Amer 14 L Est GFR (MDRD) Non-Af 12 L BUN/Creatinine Ratio 20.2 H Glucose 247 H Calcium 8.3 L Phosphorus 3.3 Albumin 2.2 L POC Glucose 06/25/17 06/25/17 06/24/17 11:04 06:48 22:10 POC Glucose 249 H 158 H 156 H 06/24/17 16:37 POC Glucose 159 H Medical Necessity - Tobacco Use Smoking Status: Never smoker Tobacco Use: Non-smoker Assessment/Plan Active and Suspected Problems Left nephrolithiasis (Acute) Hydroureter, left (Acute) Hydronephrosis, left (Acute) Acute UTI (Acute) 1. RUBINA with creatinine 3.8 suspect ATN from sepsis syndrome. Renal fxn without improvement. Lasix iv for volume overload 2. Obstructed left kidney stone s/p ureteral stent. Recheck renal US for obstruction 3. Enterobacter aerogenes UTI with persistent leukocytosis 4. DM T2 primary team mgmt 5. HTN adjust BP meds as needed. 6. Morbid obesity with hypoventilation syndrome. 7. Anasarca with hypoalbuminemia. Oxygenation stable. Lasix as needed 8. Hyperkalemia corrected with kayexalate. Follow low K diet. 9. Anemia hgb stable DW primary team
[2017-06-25 17:11] LABS: Bedside Glucose 169 mg/dL (70-110)
[2017-06-25 18:41] LABS: Urine Sodium 114 mmol/L (Not Establ.)
[2017-06-25] MEDS: Atorvastatin Calcium 10 MG Tablet PO (22:38)
[2017-06-25 23:01] LABS: Bedside Glucose 223 mg/dL (70-110)
[2017-06-26] VITALS (15 sets, daily range): BP systolic 139–161; BP diastolic 63–90; PULSE 61–83; RESP 16–22; TEMP 36.4–37; O2SAT 93–97
--- NOTE | 2017-06-26 05:55 | US_ITS ---
STUDY: RENAL ULTRASOUND - COMPLETE REASON FOR EXAM: Female, 82 years old. Hydronephrosis TECHNIQUE: Ultrasound evaluation of the kidneys was performed with real-time and static combs-scale imaging. COMPARISON: None available. FINDINGS: RIGHT KIDNEY: Normal location of the right kidney, which is normal in size. The right kidney measures 12.5 cm. There is a normal cortex of the right kidney. There are 2 cysts in the right kidney with the larger measuring 5.7 x 5.7 cm. There are no right renal calculi. There is no right hydronephrosis. DISTAL RIGHT URETER: There is non-visualization of the distal right ureter. There is no demonstrated right ureterovesical junction calculus. There is no demonstrated right ureteral jet. LEFT KIDNEY: Normal location of the left kidney, which is normal in size. The left kidney measures 13.1 cm. There is a normal cortex of the left kidney. There is a 4.9 x 4.8 cm cyst in the left kidney. There are no left renal calculi. There is no left hydronephrosis. DISTAL LEFT URETER: There is non-visualization of the distal left ureter. There is no demonstrated left ureterovesical junction calculus. There is no demonstrated left ureteral jet. BLADDER: The urinary bladder is collapsed due to the presence of a Garcia catheter and is not well evaluated. US/Kidney and Bladder IMPRESSION: Bilateral renal cysts. No renal stones. No hydronephrosis. Electronically Signed: Bartolo Schwarz, at 18:17 EDT Tel , Service support ,
[2017-06-26 06:23] LABS: Anion Gap 9 (5-15); BUN 80 mg/dL (7-18); Calcium,Total 8.5 mg/dL (8.5-10.1); Chloride 107 mmol/L (98-107); Creatinine, Serum 3.63 mg/dL (0.55-1.02); EST Glomerular Filtration Rate 13 mL/min (>60); Est Glom Filt Rate - Afr Amer 15 mL/min (>60); Estimated Creatinine Clearance 9.02 ml/min; Glucose 144 mg/dL (74-106); Potassium 4.3 mmol/L (3.5-5.1); Sodium Level 139 mmol/L (136-145)
[2017-06-26] MEDS: Levothyroxine 137 MCG Tablet PO (06:35)
[2017-06-26 07:08] LABS: Hematocrit 30.3 % (37-47); Hemoglobin 9.6 g/dl (12.0-15.0); Mean Corp Hgb Conc 31.7 g/gl (32-36); Mean Corpuscular Hgb 28.5 pg (27.0-32.0); Mean Corpuscular Volume 89.9 fL (81-99); Mean Platelet Vol. 10.1 fl (6.2-12.0); Platelet Count 246 K/mm3 (150-450); RBC Distribution Width CV 16.2 % (11.6-14.6); RBC Distribution Width SD 51.9 fl (35.1-43.9); Red Blood Count 3.37 M/mm3 (4.2-5.4); White Blood Count 12.4 K/mm3 (4.4-11.0)
[2017-06-26 07:10] LABS: Bedside Glucose 163 mg/dL (70-110)
[2017-06-26 07:14] LABS: Differential Indicated MANUAL DIFF; POSITIVE COUNT YES; POSITIVE DIFFERENTIAL YES; POSITIVE MORPHOLOGY YES
[2017-06-26 07:46] LABS: Lymphocyte 8 % (19-41); Metamyelocyte 1 % (0-1); Monocyte 14 % (0-10); Myelocyte 1 (0-0); Neutrophil-Band 3 % (0-5); Neutrophil-Segmented 73 % (47-70); Total Cells Counted 100 (MANUAL DIFF)
[2017-06-26 07:47] LABS: Anisocytosis 1+; Hypochromasia 1+; Microcytosis 1+; Platelet Estimate ADEQUATE (ADEQ); Platelet Morphology LARGE
[2017-06-26 07:48] LABS: Absolute Lymphocyte Count 0.99 X10^3/ul (0.83-4.51); Absolute Neutrophil Count 9.4 X10^3/uL (2.0-7.7)
[2017-06-26] MEDS: Aspirin 81 MG TAB.CHEW PO (08:27)
[2017-06-26] MEDS: Loratadine 10 MG Tablet PO (10:24)
[2017-06-26] MEDS: Senna/Docusate Sodium 1 Tablet 2 TABLET PO (10:24)
[2017-06-26] MEDS: Metoprolol Tartrate 25 MG Tablet PO ×2 (10:24→21:01)
[2017-06-26] MEDS: Famotidine 20 MG Tablet PO ×2 (10:25→21:01)
[2017-06-26] MEDS: amLODIPine 10 MG Tablet PO (10:25)
[2017-06-26] MEDS: Nystatin Powder 15gm Bottle 1 APPLIC TOPICAL ×2 (10:26→21:01)
[2017-06-26] MEDS: Ciprofloxacin 400 MG/200 ML BAG 200 MG IV (10:35)
[2017-06-26] MEDS: Furosemide 40 MG Tablet PO (10:35)
[2017-06-26] MEDS: 0.9% NaCl Peripheral Flush Adult/Peds IV ×2 (10:35→14:15)
[2017-06-26] MEDS: Albuterol 2.5 MG/3 ML VIAL.NEB. INHALATION ×2 (10:46→15:08)
[2017-06-26] MEDS: Ferrous Sulfate 325 MG Tablet PO ×2 (11:27→17:04)
[2017-06-26 11:45] LABS: Bedside Glucose 280 mg/dL (70-110)
[2017-06-26 11:50] LABS: Pathologist Review Reviewed
--- NOTE | 2017-06-26 13:19 | PCM.PN.REN ---
Patient Problems: Active and Suspected Problems Left nephrolithiasis (Acute) Hydroureter, left (Acute) Hydronephrosis, left (Acute) Acute UTI (Acute) Subjective: Chronic shortness of breath and edema. Diuresing well on IV Lasix. Renal ultrasound pending. History of obstructive left kidney stone with ureteral stent placement. Renal function improved with creatinine 3.63 today. - Physical Exam General: Alert, Oriented x3, Cooperative, - - Mild exertional dyspnea HEENT: PERRLA, EOMI Oral: Moist Mucosa Neck: Supple Lungs: Rales - Faint bibasilar posteriorly Cardiovascular: Regular rate, Murmur, No rub noted Abdomen: Bowel Sounds Present, Soft, Non Tender, Distended, Obese Extremities: Edema - Anasarca Skin: No rashes Musculoskeletal: No Muscle Wasting Neurological: Cranial nerves II-XII grossly intact Psych/Mental Status: Normal Affect, Alert and oriented to time, place, person, mood and affect Vital Signs Temp Pulse Resp BP Pulse Ox 97.6 F L 61 22 H 161/65 H 96 06/26/17 10:19 06/26/17 13:04 06/26/17 11:00 06/26/17 10:24 06/26/17 10:19 Oxygen Flow Rate (L/min) 2 Oxygen Delivery Method Nasal Cannula Weight: 106.7 kg Body Mass Index (BMI) 44.4 Finger Stick Blood Glucose 117 Intake and Output for Last 24 Hours 06/24/17 06/25/17 06/26/17 23:59 23:59 23:59 Intake Total 1879 / 1879 1000 / 1000 448 / 448 Output Total 1075 / 1075 2475 / 2475 575 / 575 Balance 804 / 804 -1475 / -1475 -127 / -127 Laboratory Tests Past 24 Hrs 06/25/17 06/25/17 06/26/17 18:19 18:19 05:45 WBC 12.4 H RBC 3.37 L Hgb 9.6 L Hct 30.3 L MCV 89.9 MCH 28.5 MCHC 31.7 L RDW 16.2 H RDW Differential 51.9 H Plt Count 246 MPV 10.1 Neut % (Auto) Not Reportable Absolute Neuts (auto) 9.4 H Absolute Lymphs (auto) 0.99 Total Counted 100 Neutrophils % (Manual) 73 H Band Neutrophils % 3 Lymphocytes % (Manual) 8 L Monocytes % (Manual) 14 H Metamyelocytes % 1 Myelocytes % 1 H Diff Path Review Reviewed Platelet Estimate ADEQUATE Plt Morphology Comment LARGE Hypochromasia 1+ Anisocytosis 1+ Microcytosis 1+ Sodium Potassium Chloride Carbon Dioxide Anion Gap BUN Creatinine Estim Creat Clear Calc Est GFR (MDRD) Af Amer Est GFR (MDRD) Non-Af BUN/Creatinine Ratio Glucose Calcium Ur Random Sodium 114 Urine Creatinine 25.60 06/26/17 05:45 WBC RBC Hgb Hct MCV MCH MCHC RDW RDW Differential Plt Count MPV Neut % (Auto) Absolute Neuts (auto) Absolute Lymphs (auto) Total Counted Neutrophils % (Manual) Band Neutrophils % Lymphocytes % (Manual) Monocytes % (Manual) Metamyelocytes % Myelocytes % Diff Path Review Platelet Estimate Plt Morphology Comment Hypochromasia Anisocytosis Microcytosis Sodium 139 Potassium 4.3 Chloride 107 Carbon Dioxide 23.0 Anion Gap 9 BUN 80 H Creatinine 3.63 H Estim Creat Clear Calc 9.02 Est GFR (MDRD) Af Amer 15 L Est GFR (MDRD) Non-Af 13 L BUN/Creatinine Ratio 22.0 H Glucose 144 H Calcium 8.5 Ur Random Sodium Urine Creatinine POC Glucose 06/26/17 06/26/17 06/25/17 11:23 06:39 22:36 POC Glucose 280 H 163 H 223 H 06/25/17 16:22 POC Glucose 169 H Medical Necessity - Tobacco Use Smoking Status: Never smoker Tobacco Use: Non-smoker Assessment/Plan Active and Suspected Problems Left nephrolithiasis (Acute) Hydroureter, left (Acute) Hydronephrosis, left (Acute) Acute UTI (Acute) 1. RUBINA due to ATN, creatinine improved to 3.63 today 2. Obstructed left kidney stone s/p ureteral stent. Recheck renal US for obstruction 3. Enterobacter aerogenes UTI with persistent leukocytosis continue IV antibiotic therapy 4. DM T2 primary team mgmt 5. HTN adjust BP meds as needed. 6. Morbid obesity with hypoventilation syndrome. 7. Anasarca with hypoalbuminemia. Oxygenation stable. Lasix daily. 8. Hyperkalemia corrected with kayexalate. Follow low K diet. 9. Anemia hgb stable DW primary team
--- NOTE | 2017-06-26 15:40 | NURSING ---
removed TAYLOR wraps. washed bilateral lower legs and feet with soap and water and patted dry. applied small amount of petroleum jelly to each leg. reapplied the TAYLOR wraps. no open areas were noted. no drainage. just some dry skin noted. pt tolerated well.
[2017-06-26 16:40] LABS: Bedside Glucose 232 mg/dL (70-110)
--- NOTE | 2017-06-26 17:03 | PCM.PROGNOTE ---
<Onel Redmond - Last Filed: 06/26/17 17:03> Patient Problems: Active and Suspected Problems Left nephrolithiasis (Acute) Hydroureter, left (Acute) Hydronephrosis, left (Acute) Acute UTI (Acute) Subjective: Pt complained of increased SOB and wheezing this AM, with increased edema in her hands. No fever, chills, cough. - Physical Exam General: Alert, Oriented x3, Cooperative HEENT: Atraumatic, PERRLA, EOMI, Normocephalic Neck: Supple, No JVD, Negative Carotid Bruits Lungs: Wheezes Cardiovascular: Regular rate, No murmurs Abdomen: Bowel Sounds Present, Soft, Non Tender, Obese Extremities: No edema, Capillary Refill Less than 3 Seconds, Edema - upper and LE, hands, feet, legs. Skin: No rashes, No breakdown Musculoskeletal: No Tenderness to Palpation of Joints or Extremities Neurological: Cranial nerves II-XII grossly intact Psych/Mental Status: Normal Affect, Appropriate, Alert and oriented to time, place, person, mood and affect Vital Signs Temp Pulse Resp BP Pulse Ox 98.2 F 76 17 161/69 H 96 06/26/17 14:09 06/26/17 15:44 06/26/17 15:22 06/26/17 14:09 06/26/17 14:09 Oxygen Flow Rate (L/min) 2 Oxygen Delivery Method Nasal Cannula Weight: 106.7 kg Body Mass Index (BMI) 44.4 Finger Stick Blood Glucose 117 Intake and Output for Last 24 Hours 06/24/17 06/25/17 06/26/17 23:59 23:59 23:59 Intake Total 1879 / 1879 1000 / 1000 448 / 448 Output Total 1075 / 1075 2475 / 2475 575 / 575 Balance 804 / 804 -1475 / -1475 -127 / -127 Laboratory Tests Past 24 Hrs 06/25/17 06/25/17 06/26/17 18:19 18:19 05:45 WBC 12.4 H RBC 3.37 L Hgb 9.6 L Hct 30.3 L MCV 89.9 MCH 28.5 MCHC 31.7 L RDW 16.2 H RDW Differential 51.9 H Plt Count 246 MPV 10.1 Neut % (Auto) Not Reportable Absolute Neuts (auto) 9.4 H Absolute Lymphs (auto) 0.99 Total Counted 100 Neutrophils % (Manual) 73 H Band Neutrophils % 3 Lymphocytes % (Manual) 8 L Monocytes % (Manual) 14 H Metamyelocytes % 1 Myelocytes % 1 H Diff Path Review Reviewed Platelet Estimate ADEQUATE Plt Morphology Comment LARGE Hypochromasia 1+ Anisocytosis 1+ Microcytosis 1+ Sodium Potassium Chloride Carbon Dioxide Anion Gap BUN Creatinine Estim Creat Clear Calc Est GFR (MDRD) Af Amer Est GFR (MDRD) Non-Af BUN/Creatinine Ratio Glucose Calcium Ur Random Sodium 114 Urine Creatinine 25.60 06/26/17 05:45 WBC RBC Hgb Hct MCV MCH MCHC RDW RDW Differential Plt Count MPV Neut % (Auto) Absolute Neuts (auto) Absolute Lymphs (auto) Total Counted Neutrophils % (Manual) Band Neutrophils % Lymphocytes % (Manual) Monocytes % (Manual) Metamyelocytes % Myelocytes % Diff Path Review Platelet Estimate Plt Morphology Comment Hypochromasia Anisocytosis Microcytosis Sodium 139 Potassium 4.3 Chloride 107 Carbon Dioxide 23.0 Anion Gap 9 BUN 80 H Creatinine 3.63 H Estim Creat Clear Calc 9.02 Est GFR (MDRD) Af Amer 15 L Est GFR (MDRD) Non-Af 13 L BUN/Creatinine Ratio 22.0 H Glucose 144 H Calcium 8.5 Ur Random Sodium Urine Creatinine POC Glucose 06/26/17 06/26/17 06/26/17 16:29 11:23 06:39 POC Glucose 232 H 280 H 163 H 06/25/17 06/25/17 22:36 16:22 POC Glucose 223 H 169 H Medical Necessity - Tobacco Use Smoking Status: Never smoker Tobacco Use: Non-smoker Assessment/Plan Active and Suspected Problems Left nephrolithiasis (Acute) Hydroureter, left (Acute) Hydronephrosis, left (Acute) Acute UTI (Acute) 1. Acute diastolic CHF exacerbation - EF 55%. Restart lasix. No HADLEY 2/2 poor renal function. Increased wheezing and edema today. 2. Acute cystitis complicated by nephrolithiasis - cipro IV. Plan for total 10-14 days. Outpatient cysto/lithotripsy with Dr. Muhammad when stable. Urine culture demonstrates Enterobacter garage and knees which is susceptible to Cipro. CT at the outside facility did demonstrate left hydroureter and hydronephrosis. She has a stent on the left side. 3. New onset PAF - on metoprolol, asa, now in NSR 4. RUBINA on CKD - renal following. Beginning to improve. Monitor closely with addition of lasix. 5. HTN - stable. 6. HLD - statin 7. Morbid obesity and T2DM - A1C 6.5. Glipizide and metformin held with poor renal function. She would likely benefit from transition to a non renal dependent agent like tradjenta. Continue sliding scale insulin. Dietary consult. 8. Hypothyroidism -TSH normal-continue Synthroid. 9. Normocytic anemia-continue iron replacement. Trend. 10. Chronic venous stasis-Hadley wrap. DVT prophylaxis: SCDs DC planning: PT still recommend fdc. This patient was seen by Onel Redmond PA-C under the supervision of Doctor Isela. <Ingrid Weiss - Last Filed: 06/26/17 17:29> - Physical Exam Vital Signs Temp Pulse Resp BP Pulse Ox 98.2 F 76 17 161/69 H 96 06/26/17 14:09 06/26/17 15:44 06/26/17 15:22 06/26/17 14:09 06/26/17 14:09 Oxygen Flow Rate (L/min) 2 Oxygen Delivery Method Nasal Cannula Weight: 106.7 kg Body Mass Index (BMI) 44.4 Finger Stick Blood Glucose 117 Intake and Output for Last 24 Hours 06/24/17 06/25/17 06/26/17 23:59 23:59 23:59 Intake Total 1879 / 1879 1000 / 1000 448 / 448 Output Total 1075 / 1075 2475 / 2475 575 / 575 Balance 804 / 804 -1475 / -1475 -127 / -127 Laboratory Tests Past 24 Hrs 06/25/17 06/25/17 06/26/17 18:19 18:19 05:45 WBC 12.4 H RBC 3.37 L Hgb 9.6 L Hct 30.3 L MCV 89.9 MCH 28.5 MCHC 31.7 L RDW 16.2 H RDW Differential 51.9 H Plt Count 246 MPV 10.1 Neut % (Auto) Not Reportable Absolute Neuts (auto) 9.4 H Absolute Lymphs (auto) 0.99 Total Counted 100 Neutrophils % (Manual) 73 H Band Neutrophils % 3 Lymphocytes % (Manual) 8 L Monocytes % (Manual) 14 H Metamyelocytes % 1 Myelocytes % 1 H Diff Path Review Reviewed Platelet Estimate ADEQUATE Plt Morphology Comment LARGE Hypochromasia 1+ Anisocytosis 1+ Microcytosis 1+ Sodium Potassium Chloride Carbon Dioxide Anion Gap BUN Creatinine Estim Creat Clear Calc Est GFR (MDRD) Af Amer Est GFR (MDRD) Non-Af BUN/Creatinine Ratio Glucose Calcium Ur Random Sodium 114 Urine Creatinine 25.60 06/26/17 05:45 WBC RBC Hgb Hct MCV MCH MCHC RDW RDW Differential Plt Count MPV Neut % (Auto) Absolute Neuts (auto) Absolute Lymphs (auto) Total Counted Neutrophils % (Manual) Band Neutrophils % Lymphocytes % (Manual) Monocytes % (Manual) Metamyelocytes % Myelocytes % Diff Path Review Platelet Estimate Plt Morphology Comment Hypochromasia Anisocytosis Microcytosis Sodium 139 Potassium 4.3 Chloride 107 Carbon Dioxide 23.0 Anion Gap 9 BUN 80 H Creatinine 3.63 H Estim Creat Clear Calc 9.02 Est GFR (MDRD) Af Amer 15 L Est GFR (MDRD) Non-Af 13 L BUN/Creatinine Ratio 22.0 H Glucose 144 H Calcium 8.5 Ur Random Sodium Urine Creatinine POC Glucose 06/26/17 06/26/17 06/26/17 16:29 11:23 06:39 POC Glucose 232 H 280 H 163 H 06/25/17 22:36 POC Glucose 223 H Assessment/Plan Patient was seen and examined independently. No acute events. I agree with the interval history, physical examination, assessment and plan as documented by physician emergency medicine physician assistant, Onel Redmond. Patient is slightly short of breath, has caused bilateral crackles, will receive Lasix, creatinine is improved. Discussed with Dr. Brush, further urology workup will be done outpatient. We will continue to monitor patient, possibly discharge tomorrow if she is less short of breath Code Visit Inpatient E&M: 82778 Subs Hosp L3
--- NOTE | 2017-06-26 17:14 | PN_ITS ---
<Onel Redmond - Last Filed: 06/26/17 17:03> Patient Problems: Active and Suspected Problems Left nephrolithiasis (Acute) Hydroureter, left (Acute) Hydronephrosis, left (Acute) Acute UTI (Acute) Subjective: Pt complained of increased SOB and wheezing this AM, with increased edema in her hands. No fever, chills, cough. - Physical Exam General: Alert, Oriented x3, Cooperative HEENT: Atraumatic, PERRLA, EOMI, Normocephalic Neck: Supple, No JVD, Negative Carotid Bruits Lungs: Wheezes Cardiovascular: Regular rate, No murmurs Abdomen: Bowel Sounds Present, Soft, Non Tender, Obese Extremities: No edema, Capillary Refill Less than 3 Seconds, Edema - upper and LE, hands, feet, legs. Skin: No rashes, No breakdown Musculoskeletal: No Tenderness to Palpation of Joints or Extremities Neurological: Cranial nerves II-XII grossly intact Psych/Mental Status: Normal Affect, Appropriate, Alert and oriented to time, place, person, mood and affect Vital Signs Temp Pulse Resp BP Pulse Ox 98.2 F 76 17 161/69 H 96 06/26/17 14:09 06/26/17 15:44 06/26/17 15:22 06/26/17 14:09 06/26/17 14:09 Oxygen Flow Rate (L/min) 2 Oxygen Delivery Method Nasal Cannula Weight: 106.7 kg Body Mass Index (BMI) 44.4 Finger Stick Blood Glucose 117 Intake and Output for Last 24 Hours 06/24/17 06/25/17 06/26/17 23:59 23:59 23:59 Intake Total 1879 / 1879 1000 / 1000 448 / 448 Output Total 1075 / 1075 2475 / 2475 575 / 575 Balance 804 / 804 -1475 / -1475 -127 / -127 Laboratory Tests Past 24 Hrs 06/25/17 06/25/17 06/26/17 18:19 18:19 05:45 WBC 12.4 H RBC 3.37 L Hgb 9.6 L Hct 30.3 L MCV 89.9 MCH 28.5 MCHC 31.7 L RDW 16.2 H RDW Differential 51.9 H Plt Count 246 MPV 10.1 Neut % (Auto) Not Reportable Absolute Neuts (auto) 9.4 H Absolute Lymphs (auto) 0.99 Total Counted 100 Neutrophils % (Manual) 73 H Band Neutrophils % 3 Lymphocytes % (Manual) 8 L Monocytes % (Manual) 14 H Metamyelocytes % 1 Myelocytes % 1 H Diff Path Review Reviewed Platelet Estimate ADEQUATE Plt Morphology Comment LARGE Hypochromasia 1+ Anisocytosis 1+ Microcytosis 1+ Sodium Potassium Chloride Carbon Dioxide Anion Gap BUN Creatinine Estim Creat Clear Calc Est GFR (MDRD) Af Amer Est GFR (MDRD) Non-Af BUN/Creatinine Ratio Glucose Calcium Ur Random Sodium 114 Urine Creatinine 25.60 06/26/17 05:45 WBC RBC Hgb Hct MCV MCH MCHC RDW RDW Differential Plt Count MPV Neut % (Auto) Absolute Neuts (auto) Absolute Lymphs (auto) Total Counted Neutrophils % (Manual) Band Neutrophils % Lymphocytes % (Manual) Monocytes % (Manual) Metamyelocytes % Myelocytes % Diff Path Review Platelet Estimate Plt Morphology Comment Hypochromasia Anisocytosis Microcytosis Sodium 139 Potassium 4.3 Chloride 107 Carbon Dioxide 23.0 Anion Gap 9 BUN 80 H Creatinine 3.63 H Estim Creat Clear Calc 9.02 Est GFR (MDRD) Af Amer 15 L Est GFR (MDRD) Non-Af 13 L BUN/Creatinine Ratio 22.0 H Glucose 144 H Calcium 8.5 Ur Random Sodium Urine Creatinine POC Glucose 06/26/17 06/26/17 06/26/17 16:29 11:23 06:39 POC Glucose 232 H 280 H 163 H 06/25/17 06/25/17 22:36 16:22 POC Glucose 223 H 169 H Medical Necessity - Tobacco Use Smoking Status: Never smoker Tobacco Use: Non-smoker Assessment/Plan Active and Suspected Problems Left nephrolithiasis (Acute) Hydroureter, left (Acute) Hydronephrosis, left (Acute) Acute UTI (Acute) 1. Acute diastolic CHF exacerbation - EF 55%. Restart lasix. No HADLEY 2/2 poor renal function. Increased wheezing and edema today. 2. Acute cystitis complicated by nephrolithiasis - cipro IV. Plan for total 10- 14 days. Outpatient cysto/lithotripsy with Dr. Muhammad when stable. Urine culture demonstrates Enterobacter garage and knees which is susceptible to Cipro. CT at the outside facility did demonstrate left hydroureter and hydronephrosis. She has a stent on the left side. 3. New onset PAF - on metoprolol, asa, now in NSR 4. RUBINA on CKD - renal following. Beginning to improve. Monitor closely with addition of lasix. 5. HTN - stable. 6. HLD - statin 7. Morbid obesity and T2DM - A1C 6.5. Glipizide and metformin held with poor renal function. She would likely benefit from transition to a non renal dependent agent like tradjenta. Continue sliding scale insulin. Dietary consult. 8. Hypothyroidism -TSH normal-continue Synthroid. 9. Normocytic anemia-continue iron replacement. Trend. 10. Chronic venous stasis-Hadely wrap. DVT prophylaxis: SCDs DC planning: PT still recommend [facility]. This patient was seen by Onel Redmond PA-C under the supervision of Doctor Isela. <Ingrid Weiss - Last Filed: 06/26/17 17:29> - Physical Exam Vital Signs Temp Pulse Resp BP Pulse Ox 98.2 F 76 17 161/69 H 96 06/26/17 14:09 06/26/17 15:44 06/26/17 15:22 06/26/17 14:09 06/26/17 14:09 Oxygen Flow Rate (L/min) 2 Oxygen Delivery Method Nasal Cannula Weight: 106.7 kg Body Mass Index (BMI) 44.4 Finger Stick Blood Glucose 117 Intake and Output for Last 24 Hours 06/24/17 06/25/17 06/26/17 23:59 23:59 23:59 Intake Total 1879 / 1879 1000 / 1000 448 / 448 Output Total 1075 / 1075 2475 / 2475 575 / 575 Balance 804 / 804 -1475 / -1475 -127 / -127 Laboratory Tests Past 24 Hrs 06/25/17 06/25/17 06/26/17 18:19 18:19 05:45 WBC 12.4 H RBC 3.37 L Hgb 9.6 L Hct 30.3 L MCV 89.9 MCH 28.5 MCHC 31.7 L RDW 16.2 H RDW Differential 51.9 H Plt Count 246 MPV 10.1 Neut % (Auto) Not Reportable Absolute Neuts (auto) 9.4 H Absolute Lymphs (auto) 0.99 Total Counted 100 Neutrophils % (Manual) 73 H Band Neutrophils % 3 Lymphocytes % (Manual) 8 L Monocytes % (Manual) 14 H Metamyelocytes % 1 Myelocytes % 1 H Diff Path Review Reviewed Platelet Estimate ADEQUATE Plt Morphology Comment LARGE Hypochromasia 1+ Anisocytosis 1+ Microcytosis 1+ Sodium Potassium Chloride Carbon Dioxide Anion Gap BUN Creatinine Estim Creat Clear Calc Est GFR (MDRD) Af Amer Est GFR (MDRD) Non-Af BUN/Creatinine Ratio Glucose Calcium Ur Random Sodium 114 Urine Creatinine 25.60 06/26/17 05:45 WBC RBC Hgb Hct MCV MCH MCHC RDW RDW Differential Plt Count MPV Neut % (Auto) Absolute Neuts (auto) Absolute Lymphs (auto) Total Counted Neutrophils % (Manual) Band Neutrophils % Lymphocytes % (Manual) Monocytes % (Manual) Metamyelocytes % Myelocytes % Diff Path Review Platelet Estimate Plt Morphology Comment Hypochromasia Anisocytosis Microcytosis Sodium 139 Potassium 4.3 Chloride 107 Carbon Dioxide 23.0 Anion Gap 9 BUN 80 H Creatinine 3.63 H Estim Creat Clear Calc 9.02 Est GFR (MDRD) Af Amer 15 L Est GFR (MDRD) Non-Af 13 L BUN/Creatinine Ratio 22.0 H Glucose 144 H Calcium 8.5 Ur Random Sodium Urine Creatinine POC Glucose 06/26/17 06/26/17 06/26/17 16:29 11:23 06:39 POC Glucose 232 H 280 H 163 H 06/25/17 22:36 POC Glucose 223 H Assessment/Plan Patient was seen and examined independently. No acute events. I agree with the interval history, physical examination, assessment and plan as documented by physician butcher's assistant, Onel Redmond. Patient is slightly short of breath, has caused bilateral crackles, will receive Lasix, creatinine is improved. Discussed with Dr. Brush, further urology workup will be done outpatient. We will continue to monitor patient, possibly discharge tomorrow if she is less short of breath Code Visit Inpatient E&M: [id number] Subs Hosp L3
[2017-06-26] MEDS: Ipratropium/Albuterol Sulfate 3 ML AMPUL.NEB INHALATION (19:06)
[2017-06-26 20:51] LABS: Bedside Glucose 251 mg/dL (70-110)
[2017-06-26] MEDS: Atorvastatin Calcium 10 MG Tablet PO (21:01)
[2017-06-27] VITALS (13 sets, daily range): BP systolic 145–156; BP diastolic 61–69; PULSE 62–72; RESP 16–24; TEMP 36.6–37.1; O2SAT 83–97
[2017-06-27] MEDS: Levothyroxine 137 MCG Tablet PO (05:20)
[2017-06-27 06:12] LABS: Hematocrit 30.2 % (37-47); Hemoglobin 9.6 g/dl (12.0-15.0); Mean Corp Hgb Conc 31.8 g/gl (32-36); Mean Corpuscular Hgb 28.5 pg (27.0-32.0); Mean Corpuscular Volume 89.6 fL (81-99); Mean Platelet Vol. 9.9 fl (6.2-12.0); Platelet Count 248 K/mm3 (150-450); RBC Distribution Width CV 16.4 % (11.6-14.6); RBC Distribution Width SD 53.2 fl (35.1-43.9); Red Blood Count 3.37 M/mm3 (4.2-5.4); White Blood Count 10.3 K/mm3 (4.4-11.0)
[2017-06-27 06:13] LABS: Differential Indicated MANUAL DIFF; POSITIVE COUNT YES; POSITIVE DIFFERENTIAL NO; POSITIVE MORPHOLOGY YES
[2017-06-27 06:32] LABS: Anion Gap 11 (5-15); BUN 80 mg/dL (7-18); BUN/Creat Ratio 22.4 RATIO (10-20); Calcium,Total 8.3 mg/dL (8.5-10.1); Chloride 106 mmol/L (98-107); Creatinine, Serum 3.57 mg/dL (0.55-1.02); EST Glomerular Filtration Rate 13 mL/min (>60); Est Glom Filt Rate - Afr Amer 16 mL/min (>60); Estimated Creatinine Clearance 9.17 ml/min; Glucose 175 mg/dL (74-106); Potassium 4.2 mmol/L (3.5-5.1); Sodium Level 139 mmol/L (136-145)
[2017-06-27 06:38] LABS: Basophil 1 % (0-1); Eosinophil 1 % (0-5); Lymphocyte 21 % (19-41); Monocyte 10 % (0-10); Neutrophil-Segmented 67 % (47-70); Total Cells Counted 100 (MANUAL DIFF)
[2017-06-27 06:39] LABS: Anisocytosis 1+; Polychromasia RARE
[2017-06-27 06:40] LABS: Platelet Estimate ADEQUATE (ADEQ)
[2017-06-27] MEDS: Ipratropium/Albuterol Sulfate 3 ML AMPUL.NEB INHALATION ×2 (06:50→10:43)
[2017-06-27 06:51] LABS: Bedside Glucose 172 mg/dL (70-110)
[2017-06-27] MEDS: Aspirin 81 MG TAB.CHEW PO (08:42)
[2017-06-27] MEDS: Ciprofloxacin 400 MG/200 ML BAG 200 MG IV (09:56)
[2017-06-27] MEDS: Famotidine 20 MG Tablet PO (09:56)
[2017-06-27] MEDS: Senna/Docusate Sodium 1 Tablet 2 TABLET PO (09:56)
[2017-06-27] MEDS: amLODIPine 10 MG Tablet PO (09:56)
[2017-06-27] MEDS: 0.9% NaCl Peripheral Flush Adult/Peds IV (09:56)
[2017-06-27] MEDS: Loratadine 10 MG Tablet PO (09:56)
[2017-06-27] MEDS: Nystatin Powder 15gm Bottle 1 APPLIC TOPICAL (09:57)
[2017-06-27] MEDS: Furosemide 40 MG Tablet PO (09:57)
[2017-06-27] MEDS: Metoprolol Tartrate 25 MG Tablet PO ×2 (09:57→12:02)
--- NOTE | 2017-06-27 10:13 | CASEMGMT ---
This RN CM to room to speak with pt and son regarding discharge planning. Advised pt and son that therapy is recommending SNF for pt at this time, voice understanding. Pt/son refuse SNF placement at this time and would like to go home with resumption of [facility]. Call to [facility] to verify services and per [facility], pt currently only has halfway. Advised [facility] that this RN CM would be adding order for PT/OT and aide at this time, voices understanding. Order placed and copy faxed to [facility] at this time. Pt is still on oxygen at this time. Betsy RN contacted to have pt tested for home oxygen at this time. Pt states no DME preference for home oxygen at this time. SStaten RN CM
--- NOTE | 2017-06-27 10:13 | CASEMGMT ---
This RN CM to room to speak with pt and regarding discharge planning. Advised pt and that therapy is recommending SNF for pt at this time, voice understanding. Pt/ refuse SNF placement at this time and would like to go home with resumption of [facility]. Call to [facility] to verify services and per [facility], pt currently only has detention. Advised [facility] that this RN CM would be adding order for PT/OT and aide at this time, voices understanding. Order placed and copy faxed to [facility] at this time. Pt is still on oxygen at this time. Betsy RN contacted to have pt tested for home oxygen at this time. Pt states no DME preference for home oxygen at this time. SStaten RN CM
--- NOTE | 2017-06-27 11:44 | DCINST_ITS ---
- Discharge Diagnoses Current Active Problems: Current Active and Chronic Problems Left nephrolithiasis (Acute) Hydroureter, left (Acute) Hydronephrosis, left (Acute) Acute UTI (Acute) HTN (hypertension) (Chronic) HLD (hyperlipidemia) (Chronic) Chronic lymphedema (Chronic) Iron deficiency anemia (Chronic) Morbid obesity (Chronic) Chronic venous stasis dermatitis (Chronic) You will use the following diet at home:: Calorie/Carbohydrate Controlled ( specify 1200, 1400, etc) - 1800 paige/day, Cardiac - low sodium, 2g / day Your food should be the consistency of: Regular Your liquids should be the consistency of: Regular/Thin Discharge Activity: Return to Normal Activity Additional Instructions: Monitor daily weights Allergies/Adverse Reactions: Allergies lisinopril Adverse Reaction (Verified 06/20/17 19:14) Other COUGH Medications to take at Discharge Aspirin [Aspirin, Baby] 81 mg PO DAILY@0800 06/20/17 Atorvastatin Calcium [Lipitor] 10 mg PO QHS 06/20/17 Ferrous Sulfate 325 mg PO BID 06/20/17 Furosemide [Lasix] 40 mg PO DAILY 06/20/17 Levothyroxine [Synthroid] 137 mcg PO DAILY 06/20/17 Multivit-Min/FA/Lycopen/Lutein [Centrum Silver Tablet] 1 each PO DAILY 06/20/17 Omeprazole [Prilosec] 20 mg PO DAILY 06/20/17 Potassium Chloride [Klor-Con Sprinkle] 10 meq PO BID 06/20/17 Acetaminophen [Tylenol Tablet] 650 mg PO Q6H PRN PRN tablet 06/27/17 Amlodipine [Norvasc] 10 mg PO DAILY #30 tab 06/27/17 Linagliptin [Tradjenta] 5 mg PO DAILY #30 tab 06/27/17 The following prescriptions were given: Amlodipine [Norvasc] 10 mg PO DAILY #30 tab Linagliptin [Tradjenta] 5 mg PO DAILY #30 tab Orders to be completed after discharge: Basic Metabolic Profile (BMP) Time Frame: 5 Days, Location: Laboratory Please follow up with your Primary Care Physician in: 2 weeks Please Follow Up With: Carie Blanco DO When: 1-2 weeks Please Follow Up With: Ky Brush MD - call for appointment When: 1 week Proposed Discharge Date: 06/27/17
[2017-06-27] MEDS: Ferrous Sulfate 325 MG Tablet PO (12:02)
[2017-06-27 12:45] LABS: Bedside Glucose 256 mg/dL (70-110)
--- NOTE | 2017-06-27 12:48 | PCM.PN.REN ---
Patient Problems: Active and Suspected Problems Left nephrolithiasis (Acute) Hydroureter, left (Acute) Hydronephrosis, left (Acute) Acute UTI (Acute) Subjective: Still with some shortness of breath. She has chronic edema in her lower extremities and abdomen. He she is diuresing well on oral Lasix. Serum creatinine improved slightly at 3.57 today. Still not back to baseline creatinine of 1.2. Will be going home with an indwelling Garcia catheter and antibiotics for her UTI. Renal ultrasound was negative for hydronephrosis. - Physical Exam General: Alert, Oriented x3, Cooperative, No apparent distress Lungs: Rales - Faint bibasilar crackles Cardiovascular: Regular rate, No rub noted Abdomen: Bowel Sounds Present, Soft, Non Tender, Obese Extremities: Edema Skin: No rashes Musculoskeletal: No Muscle Wasting Psych/Mental Status: Normal Affect, Appropriate, Alert and oriented to time, place, person, mood and affect Vital Signs Temp Pulse Resp BP Pulse Ox 98.1 F 71 20 H 156/69 H 90 06/27/17 09:26 06/27/17 12:02 06/27/17 10:43 06/27/17 09:26 06/27/17 11:58 Oxygen Flow Rate (L/min) 2 Oxygen Delivery Method Nasal Cannula Weight: 106.7 kg Body Mass Index (BMI) 44.4 Finger Stick Blood Glucose 117 Intake and Output for Last 24 Hours 06/25/17 06/26/17 06/27/17 23:59 23:59 23:59 Intake Total 1000 / 1000 798 / 798 853 / 853 Output Total 2475 / 2475 1125 / 1125 1100 / 1100 Balance -1475 / -1475 -327 / -327 -247 / -247 Microbiology Past 72 Hours 06/25/17 18:19 Urine Culture - Preliminary Urine Catheter - Garcia Culture exhibits no growth. Laboratory Tests Past 24 Hrs 06/27/17 06/27/17 05:40 05:40 WBC 10.3 RBC 3.37 L Hgb 9.6 L Hct 30.2 L MCV 89.6 MCH 28.5 MCHC 31.8 L RDW 16.4 H RDW Differential 53.2 H Plt Count 248 MPV 9.9 Neut % (Auto) Not Reportable Absolute Neuts (auto) Not Reportable Total Counted 100 Neutrophils % (Manual) 67 Lymphocytes % (Manual) 21 Monocytes % (Manual) 10 Eosinophils % (Manual) 1 Basophils % (Manual) 1 Diff Path Review May foll Platelet Estimate ADEQUATE Polychromasia RARE Anisocytosis 1+ Sodium 139 Potassium 4.2 Chloride 106 Carbon Dioxide 22.0 Anion Gap 11 BUN 80 H Creatinine 3.57 H Estim Creat Clear Calc 9.17 Est GFR (MDRD) Af Amer 16 L Est GFR (MDRD) Non-Af 13 L BUN/Creatinine Ratio 22.4 H Glucose 175 H Calcium 8.3 L POC Glucose 06/27/17 06/27/17 06/26/17 11:56 06:41 20:40 POC Glucose 256 H 172 H 251 H 06/26/17 16:29 POC Glucose 232 H Medical Necessity - Tobacco Use Smoking Status: Never smoker Tobacco Use: Non-smoker Assessment/Plan Active and Suspected Problems Left nephrolithiasis (Acute) Hydroureter, left (Acute) Hydronephrosis, left (Acute) Acute UTI (Acute) 1. RUBINA due to ATN, creatinine improved to 3.57 today. Check renal panel next week. Hold Losartan on discharge to home 2. Obstructed left kidney stone s/p ureteral stent. Renal US no obstruction. DC to home with Garcia catheter and follow up with urology 3. Enterobacter aerogenes UTI continue antibiotic therapy 4. DM T2 primary team mgmt 5. HTN stable 6. Morbid obesity with hypoventilation syndrome. 7. Anasarca with hypoalbuminemia. Lasix 40 mg daily on discharge to home. 8. Hyperkalemia corrected with kayexalate. Follow low K diet. Discontinue potassium supplements on discharge to home 9. Anemia hgb stable follow up in 1-2 wks with labs DW primary team
--- NOTE | 2017-06-27 13:14 | NURSING ---
Washed bilateral lower legs and feet with soap and water. patted dry. no open areas noted. applied small amount of petroleum jelly and reapplied the TAYLOR wraps from the base of the toes to just below the knees. pt tolerated well.
--- NOTE | 2017-06-27 13:35 | CASEMGMT ---
Pt does qualify for oxygen at this time. Referral to Marina at [facility] at this time as pt had no preference for DME, Marina voices understanding and states she will be over with oxygen tank with pt. Referral faxed to [facility] at this time. Pt and son updated on all at this time, voice understanding. Kimberly CORDOBA CM
--- NOTE | 2017-06-27 13:48 | CASEMGMT ---
Addendum entered by Clara Motta 06/27/17 14:41: Per Miracle at [facility], the Glipizide script will be $17.48. Betsy CORDOBA aware at this time, voices understanding and will notify pt at discharge. Kimberly CORDOBA CM Original Note: Addendum entered by Clara Motta 06/27/17 14:00: Received call from Davina ALVAREZ and he states that he will changing pt's script from Tradjenta to Glipizide. Pt, son, and Betsy RN updated at this time, voice understanding. This RN CM will place call to [facility] to verify carcamo and notify them that Tradjenta script cancelled. Kimberly CORDOBA CM Original Note: Per Davina ALVAREZ, he would like to send pt home on Tradjenta and would like to have prescription carcamo check completed. Script e-scribed to [facility] and called placed to check on carcamo. Per renata at [facility], pt does not have any prescription insurance currently and they put it through their assistance program with a coupon and the total would still be $332.20. Davina ALVAREZ aware at this time, voices understanding and states that he will cancel that script and write for something else. This RN CM to room to verify with pt that she has no prescription insurance and pt states that she just pays out of pocket with assist from [facility]. Advised pt, son, and Betsy RN of situation at this time and advised them that Onel would be adjusting scripts, voice understanding. Kimberly CORDOBA CM
--- NOTE | 2017-06-27 14:03 | PCM.DC.SUM ---
<Onel Redmond - Last Filed: 06/27/17 14:03> Discharge Date and Diagnosis Date of Admission: 06/20/17 Date of Discharge: 06/27/17 - Primary Discharge Diagnosis Active and Suspected Problems Left nephrolithiasis (Acute) Hydroureter, left (Acute) Hydronephrosis, left (Acute) Acute UTI (Acute) RUBINA Acute diastolic CHF exacerbation New onset PAF HLD Chronic hypoxic respiratory failure DMt2 Hypothyroidism Iron deficiency anemia chronic venous stasis HTN - Secondary Discharge Diagnosis Chronic Problems HTN (hypertension) (Chronic) HLD (hyperlipidemia) (Chronic) Chronic lymphedema (Chronic) Iron deficiency anemia (Chronic) Morbid obesity (Chronic) Chronic venous stasis dermatitis (Chronic) Hospital Course and Treatment Imaging Results: US/Kidney and Bladder IMPRESSION: Bilateral renal cysts. No renal stones. No hydronephrosis. RAD/Chest PA and Lateral IMPRESSION: CHF with cardiac enlargement and edema. RAD/Abdomen Single View IMPRESSION: Left urinary stent. Echo: Interpretation Summary Normal LV size. Left ventricular systolic function is normal. The estimated ejection fraction is 55 %. Transmitral and pulmonary venous doppler flow suggestive of elevated left atrial pressure. Moderate (2+) tricuspid valve insufficiency. Pulmonary artery systolic pressure is 52 mmHg. Moderate pulmonary hypertension. Consultations Jb/Trudi - urology Francis - nephrology 06/20/17 19:42 Consult: Onc/Wound/baker laboratory Routine Comment: Operations: - - cystoscopy with stent placement Procedures: 2-D Echocardiogram Summary of Care Provided: Physical exam on day of discharge: General: Resting comfortably NAD Psych: A/Ox3 normal affect HEENT: PEARRLA AT NC Neck: Supple NT CV: RRR no m/t/r/g/h Resp: CTA Abd: [id number] Soft NT no guarding or rigidity Ext: DP2+= BL 2+ pitting edema Skin: W/D normal turgor Lymph/Heme: No active bleeding or adenopathy Neuro: CN2-12 intact Hospital course: The patient is a 82 year old F with a hx of morbid obesity, T2DM, chronic venous stasis, who presented to the er with left CVA tenderness and dysuria. She presented to [place] emergency room was found to have left-sided hydronephrosis and hydroureter with 11 mm stone and was transferred subsequently to [facility]. She started on Rocephin. She was also noted to the ER to have increased heart rate in atrial fibrillation for short period that converted on its own. She was placed on metoprolol. Dr. Muhammad was consulted from urology who placed a left ureteral stent and a Garcia catheter. Urine culture demonstrated Enterobacter aerogenes susceptible to Cipro and she was transitioned to Cipro. She developed significant worsening of her renal function and Dr. Blanco from nephrology was consulted. She had significant crackles in her lungs and bilateral lower extremity edema. After her creatinine stabilized she was placed on Lasix with improvement in her symptoms. Patient was hypoxic and required oxygen to maintain saturations greater than 90% with ambulation. Her oral antidiabetic agents were held and discontinued secondary to poor renal function. We desire to start her on Tradjenta however she had no drug coverage and it would cost her several hundred per month. Instead she was started on low-dose glipizide. We advised her that she will need close monitoring her blood sugars as her medications were significantly she with close follow-up with her PCP. She was written for ciprofloxacin to complete a 14 day course. She will need an outpatient BMP to monitor her renal function especially with her Lasix restarted. Her blood pressure medications were also adjusted while here. Her renal function did improve after starting Lasix while inpatient. She will also need close follow-up with Dr. Espino as she will need a lithotripsy as an outpatient. She will go home with a Garcia catheter in place until then. She will also need to follow-up closely with Dr. Blanco from nephrology. Patient is discharged home with home health care in stable condition. This patient was seen by Onel Redmond PA-C under the supervision of Doctor Weiss. [] Discharge Activity: Return to Normal Activity Home Medications: Medications to take at Discharge Aspirin [Aspirin, Baby] 81 mg PO DAILY@0800 06/20/17 Atorvastatin Calcium [Lipitor] 10 mg PO QHS 06/20/17 Ferrous Sulfate 325 mg PO BID 06/20/17 Furosemide [Lasix] 40 mg PO DAILY 06/20/17 Levothyroxine [Synthroid] 137 mcg PO DAILY 06/20/17 Multivit-Min/FA/Lycopen/Lutein [Centrum Silver Tablet] 1 each PO DAILY 06/20/17 Omeprazole [Prilosec] 20 mg PO DAILY 06/20/17 Potassium Chloride [Klor-Con Sprinkle] 10 meq PO BID 06/20/17 Acetaminophen [Tylenol Tablet] 650 mg PO Q6H PRN PRN tablet 06/27/17 Amlodipine [Norvasc] 10 mg PO DAILY #30 tab 06/27/17 Ciprofloxacin [Cipro] 500 mg PO DAILY #8 tab 06/27/17 Glipizide [Glipizide ER] 2.5 mg PO DAILY #30 tab.er.24 06/27/17 Metoprolol Tartrate [Lopressor (beta norm)] 50 mg PO BID #60 tab 06/27/17 Following Prescrptions Were Given to Patient: Amlodipine [Norvasc] 10 mg PO DAILY #30 tab Ciprofloxacin [Cipro] 500 mg PO DAILY #8 tab Glipizide [Glipizide ER] 2.5 mg PO DAILY #30 tab.er.24 Metoprolol Tartrate [Lopressor (beta norm)] 50 mg PO BID #60 tab Please follow up with your Primary Care Physician in: 2 weeks Please Follow Up With: Carie Blanco DO When: 1-2 weeks Please Follow Up With: Ky Brush MD - call for appointment When: 1 week Medical Necessity - Tobacco Use Smoking Status: Never smoker Tobacco Use: Non-smoker Meaningful Use Info Meaningful Use Diagnoses (Choose all that apply): CHF - CHF TAYLOR/ARB ordered at discharge?: No Reason TAYLOR/ARB not ordered?: Worsening renal disease Documented LVEF (%): 55 <Ingrid Weiss - Last Filed: 06/27/17 16:09> Discharge Date and Diagnosis - Secondary Discharge Diagnosis Chronic Problems HTN (hypertension) (Chronic) HLD (hyperlipidemia) (Chronic) Chronic lymphedema (Chronic) Iron deficiency anemia (Chronic) Morbid obesity (Chronic) Chronic venous stasis dermatitis (Chronic) Hospital Course and Treatment Consultations 06/20/17 19:42 Consult: Onc/Wound/baker laboratory Routine Comment: Summary of Care Provided: The patient is a 82 year old F [] Code Visit Inpatient E&M: 22043 Disch Hosp - a lot of time was spent co-ordinating discharge meds
--- NOTE | 2017-06-27 14:13 | DS.PCM_ITS ---
<Onel Redmond - Last Filed: 06/27/17 14:03> Discharge Date and Diagnosis Date of Admission: 06/20/17 Date of Discharge: 06/27/17 - Primary Discharge Diagnosis Active and Suspected Problems Left nephrolithiasis (Acute) Hydroureter, left (Acute) Hydronephrosis, left (Acute) Acute UTI (Acute) RUBINA Acute diastolic CHF exacerbation New onset PAF HLD Chronic hypoxic respiratory failure DMt2 Hypothyroidism Iron deficiency anemia chronic venous stasis HTN - Secondary Discharge Diagnosis Chronic Problems HTN (hypertension) (Chronic) HLD (hyperlipidemia) (Chronic) Chronic lymphedema (Chronic) Iron deficiency anemia (Chronic) Morbid obesity (Chronic) Chronic venous stasis dermatitis (Chronic) Hospital Course and Treatment Imaging Results: US/Kidney and Bladder IMPRESSION: Bilateral renal cysts. No renal stones. No hydronephrosis. RAD/Chest PA and Lateral IMPRESSION: CHF with cardiac enlargement and edema. RAD/Abdomen Single View IMPRESSION: Left urinary stent. Echo: Interpretation Summary Normal LV size. Left ventricular systolic function is normal. The estimated ejection fraction is 55 %. Transmitral and pulmonary venous doppler flow suggestive of elevated left atrial pressure. Moderate (2+) tricuspid valve insufficiency. Pulmonary artery systolic pressure is 52 mmHg. Moderate pulmonary hypertension. Consultations Jb/Trudi - urology Francis - nephrology 06/20/17 19:42 Consult: Onc/Wound/die try out worker Routine Comment: Operations: - - cystoscopy with stent placement Procedures: 2-D Echocardiogram Summary of Care Provided: Physical exam on day of discharge: General: Resting comfortably NAD Psych: A/Ox3 normal affect HEENT: PEARRLA AT NC Neck: Supple NT CV: RRR no m/t/r/g/h Resp: CTA Abd: [id number] Soft NT no guarding or rigidity Ext: DP2+= BL 2+ pitting edema Skin: W/D normal turgor Lymph/Heme: No active bleeding or adenopathy Neuro: CN2-12 intact Hospital course: The patient is a 82 year old F with a hx of morbid obesity, T2DM, chronic venous stasis, who presented to the er with left CVA tenderness and dysuria. She presented to [place] emergency room was found to have left-sided hydronephrosis and hydroureter with 11 mm stone and was transferred subsequently to [facility]. She started on Rocephin. She was also noted to the ER to have increased heart rate in atrial fibrillation for short period that converted on its own. She was placed on metoprolol. Dr. Muhammad was consulted from urology who placed a left ureteral stent and a Garcia catheter. Urine culture demonstrated Enterobacter aerogenes susceptible to Cipro and she was transitioned to Cipro. She developed significant worsening of her renal function and Dr. Blanco from nephrology was consulted. She had significant crackles in her lungs and bilateral lower extremity edema. After her creatinine stabilized she was placed on Lasix with improvement in her symptoms. Patient was hypoxic and required oxygen to maintain saturations greater than 90% with ambulation. Her oral antidiabetic agents were held and discontinued secondary to poor renal function. We desire to start her on Tradjenta however she had no drug coverage and it would cost her several hundred per month. Instead she was started on low-dose glipizide. We advised her that she will need close monitoring her blood sugars as her medications were significantly she with close follow-up with her PCP. She was written for ciprofloxacin to complete a 14 day course. She will need an outpatient BMP to monitor her renal function especially with her Lasix restarted. Her blood pressure medications were also adjusted while here. Her renal function did improve after starting Lasix while inpatient. She will also need close follow- up with Dr. Espino as she will need a lithotripsy as an outpatient. She will go home with a Garcia catheter in place until then. She will also need to follow- up closely with Dr. Blanco from nephrology. Patient is discharged home with home health care in stable condition. This patient was seen by Onel Redmond PA-C under the supervision of Doctor Weiss. [] Discharge Activity: Return to Normal Activity Home Medications: Medications to take at Discharge Aspirin [Aspirin, Baby] 81 mg PO DAILY@0800 06/20/17 Atorvastatin Calcium [Lipitor] 10 mg PO QHS 06/20/17 Ferrous Sulfate 325 mg PO BID 06/20/17 Furosemide [Lasix] 40 mg PO DAILY 06/20/17 Levothyroxine [Synthroid] 137 mcg PO DAILY 06/20/17 Multivit-Min/FA/Lycopen/Lutein [Centrum Silver Tablet] 1 each PO DAILY 06/20/17 Omeprazole [Prilosec] 20 mg PO DAILY 06/20/17 Potassium Chloride [Klor-Con Sprinkle] 10 meq PO BID 06/20/17 Acetaminophen [Tylenol Tablet] 650 mg PO Q6H PRN PRN tablet 06/27/17 Amlodipine [Norvasc] 10 mg PO DAILY #30 tab 06/27/17 Ciprofloxacin [Cipro] 500 mg PO DAILY #8 tab 06/27/17 Glipizide [Glipizide ER] 2.5 mg PO DAILY #30 tab.er.24 06/27/17 Metoprolol Tartrate [Lopressor (beta norm)] 50 mg PO BID #60 tab 06/27/17 Following Prescrptions Were Given to Patient: Amlodipine [Norvasc] 10 mg PO DAILY #30 tab Ciprofloxacin [Cipro] 500 mg PO DAILY #8 tab Glipizide [Glipizide ER] 2.5 mg PO DAILY #30 tab.er.24 Metoprolol Tartrate [Lopressor (beta norm)] 50 mg PO BID #60 tab Please follow up with your Primary Care Physician in: 2 weeks Please Follow Up With: Carie Blanco DO When: 1-2 weeks Please Follow Up With: Ky Brush MD - call for appointment When: 1 week Medical Necessity - Tobacco Use Smoking Status: Never smoker Tobacco Use: Non-smoker Meaningful Use Info Meaningful Use Diagnoses (Choose all that apply): CHF - CHF TAYLOR/ARB ordered at discharge?: No Reason TAYLOR/ARB not ordered?: Worsening renal disease Documented LVEF (%): 55 <Ingrid Weiss - Last Filed: 06/27/17 16:09> Discharge Date and Diagnosis - Secondary Discharge Diagnosis Chronic Problems HTN (hypertension) (Chronic) HLD (hyperlipidemia) (Chronic) Chronic lymphedema (Chronic) Iron deficiency anemia (Chronic) Morbid obesity (Chronic) Chronic venous stasis dermatitis (Chronic) Hospital Course and Treatment Consultations 06/20/17 19:42 Consult: Onc/Wound/die try out worker Routine Comment: Summary of Care Provided: The patient is a 82 year old F [] Code Visit Inpatient E&M: 89155 Disch Hosp - a lot of time was spent co-ordinating discharge meds
--- NOTE | 2017-06-27 14:46 | CASEMGMT ---
Aditi at [facility] notified that pt to be discharged this afternoon, voices understanding. Discharge instructions/summary faxed to [facility] at this time. Resumption order was already faxed earlier today and Aditi states that they did already receive it previously. Kimberly CORDOBA CM
[2017-06-30 14:32] LABS: Pathologist Review Reviewed
== END 2017-06-27 15:38 | disposition home health service (06) | DRG 871 ==
PROVIDERS: Internal Medicine; Internal Medicine Nephrology; Nurse Practitioner Family; Physician Assistant; Urology; Admitting Provider Family Medicine; Visit Provider Internal Medicine
PROC: 0T778DZ Dilation of Left Ureter with Intraluminal Device, Via Natural or Artificial Opening Endoscopic (ICD-10-PCS; principal; 2017-06-20 20:15)
DX: A41.9 Sepsis, unspecified organism (principal); I50.33 Acute on chronic diastolic (congestive) heart failure; N17.0 Acute kidney failure with tubular necrosis; N13.6 Pyonephrosis; J96.11 Chronic respiratory failure with hypoxia; E66.2 Morbid (severe) obesity with alveolar hypoventilation; Z68.41 Body mass index [BMI] 40.0-44.9, adult; N30.00 Acute cystitis without hematuria; I87.2 Venous insufficiency (chronic) (peripheral); E78.5 Hyperlipidemia, unspecified; I48.0 Paroxysmal atrial fibrillation; E03.9 Hypothyroidism, unspecified; D50.9 Iron deficiency anemia, unspecified; I89.0 Lymphedema, not elsewhere classified; B95.2 Enterococcus as the cause of diseases classified elsewhere; Z87.442 Personal history of urinary calculi; I11.0 Hypertensive heart disease with heart failure; Z79.84 Long term (current) use of oral hypoglycemic drugs; E11.9 Type 2 diabetes mellitus without complications; Z79.899 Other long term (current) drug therapy
CPT/HCPCS: 36415; 71046; 74018; 76000; 76770; 80048; 80061; 80069; 81001; 82570; 82962; 83036; 83735; 84300; 84443; 84484; 85014; 85018; 85025; 85027; 86850; 86900; 87077; 87086; 87088; 87186; 93005; 93306; 94640; 97110; 97116; 97162; 97166; 97530; 97535; 97802; J7030; J7050; P9047; Q9957; A4216; C1769; C2617; J0744; J1940

== ENCOUNTER → 2017-07-02 08:42 | Outpatient (CLI) | payer MEDICARE, SELFPAY ==
[2017-07-02 09:13] LABS: Anion Gap 10 (5-15); BUN 60 mg/dL (7-18); BUN/Creat Ratio 20.3 RATIO (10-20); Calcium,Total 8.6 mg/dL (8.5-10.1); Chloride 105 mmol/L (98-107); Creatinine, Serum 2.96 mg/dL (0.55-1.02); EST Glomerular Filtration Rate 16 mL/min (>60); Est Glom Filt Rate - Afr Amer 20 mL/min (>60); Glucose 145 mg/dL (74-106); Potassium 4.5 mmol/L (3.5-5.1); Sodium Level 142 mmol/L (136-145)
== END ==
PROVIDERS: Visit Provider Physician Assistant
DX: I50.9 Heart failure, unspecified (principal); N17.9 Acute kidney failure, unspecified
CPT/HCPCS: 36415; 80048

== ENCOUNTER 2017-07-03 06:35 | Emergency (ER) | payer MEDICARE, SELFPAY ==
[2017-07-03 06:36] VITALS: BP 172/77; PULSE 84; RESP 18; TEMP 36.8; O2SAT 91; BMI 46.7
--- NOTE | 2017-07-03 06:45 | ED.VISSUMM ---
- ER Visit Summary Date of Service: 07/03/17 Chief Complaint: Garcia catheter dysfunction History of Present Illness: The patient is a 82 F no drainage of Garcia catheter since 9 PM last evening. Increasing suprapubic discomfort. No fevers. No vomiting. Garcia catheter placed 2 weeks ago when she was diagnosed with a left-sided kidney stone transferred from [facility]. Status post ureteral stent. Currently on Cipro still. Has a follow-up with urology next week. Physical Examination: General: Alert and oriented ?3, no acute distress HEENT: Normocephalic, atraumatic. Moist mucosa membranes Neck: supple, nontender. Cardiovascular: Regular rate and rhythm, no murmurs Respiratory: Normal breath sounds, symmetric, no distress Abdomen: Soft, nontender, nondistended Extremities: Nontender, no edema, pulses intact ?4 Neuro: no focal neurological deficits. Test Results: [] Emergency Department Course and Treatment: Patient vitals stable, Garcia was flushed prior to my evaluation. There is 300ml urine output. Suprapubic symptoms improved. Currently on Cipro antibiotics. No fevers. Patient will be discharged with Garcia catheter care instructions. She will keep her follow-up appointment with urology. She will return if any worsening symptoms. Treatment Plan: [] Disposition: Discharge Impression: Garcia catheter dysfunction This note was generated with [employer] dictation software. It may contain incorrect words, spelling, and punctuation that were not noted in review of the chart prior to signing ED Disposition - Plan for ED Patient: Disposition: Home or Assisted Living Chief Complaint: Complaint Diagnosis: Garcia catheter problem Instructions: ED Catheter Care Garcia Referrals: [facility] Doctor,Out of [Primary Care Provider] - Ky Brush MD [STAFF PHYSICIAN] - Keep Jaky appointment
[2017-07-03 06:55] VITALS: BP 161/71; RESP 17; O2SAT 94
== END 2017-07-03 07:05 | disposition home or self-care (01) ==
LOC: ED 07:04
PROVIDERS: Emergency Provider Emergency Medicine
DX: T83.098A Other mechanical complication of other urinary catheter, initial encounter (principal); I10 Essential (primary) hypertension; E11.9 Type 2 diabetes mellitus without complications; I48.91 Unspecified atrial fibrillation; Z87.442 Personal history of urinary calculi; Z79.82 Long term (current) use of aspirin; Z79.84 Long term (current) use of oral hypoglycemic drugs; Z79.899 Other long term (current) drug therapy
CPT/HCPCS: 99282

== ENCOUNTER 2017-07-04 07:23 | Emergency (ER) | payer MEDICARE, SELFPAY ==
[2017-07-04 07:24] VITALS: BP 160/66; PULSE 94; RESP 20; TEMP 36.7; O2SAT 92; BMI 45.1
[2017-07-04] MEDS: Lidocaine Jelly 2% 20 ML Syringe (URO-JET) 20 APPLIC TOPICAL (08:06)
--- NOTE | 2017-07-04 08:07 | ED.VISSUMM ---
- ER Visit Summary Date of Service: 07/04/17 Chief Complaint: Garcia catheter not draining History of Present Illness: The patient is a [address] Brush, Dr. Blanco, and Dr. Keller. Patient reports that she was in the emergency department yesterday morning and had her Garcia catheter flushed. States that drained all day and then stopped again last night. She complains of a suprapubic pressure that is 8 out of 10 at worst. It is 4 out of 10 currently. She denies any nausea, vomiting, diarrhea, melena, or hematochezia. Her last bowel movements today. She has had no fever or chills. She reports she has left flank pain that is 4-10 severity and is much improved from prior. Physical Examination: Vitals: Stable. Afebrile. General: Well-nourished and well-developed. Head: Normocephalic atraumatic. Neck: Supple, no lymphadenopathy. No JVD. Nontender. Cardiovascular: Regular rate and rhythm. No murmurs. Respiratory: No respiratory distress. Clear to auscultation bilaterally. Abdominal: Soft, mild suprapubic tenderness to palpation with a distended bladder, nondistended, normal bowel sounds. No guarding, rebound, or peritoneal signs. Back: Nontender. Extremities: Nontender, 3+ pitting edema of her lower extremities bilaterally. Skin: Normal color, no rash. Neurologic: Alert and oriented ?3. Cranial nerves II through XII are intact. Normal strength and sensation. Psych: Normal affect. Test Results: Patient had a BMP drawn on July 02 that showed that her creatinine had improved to 2.96. This was not repeated. Emergency Department Course and Treatment: Patient initially had her Garcia catheter irrigated and 2 small clots returned. She then had 600 cc of urine that returned and her pain resolved. The urine was not bloody or blood-tinged. There were no further clots. However, I discussed the patient the possibility of placing a larger catheter so that this does not happen again overnight. She was amenable to this and the catheter was replaced. The previous catheter did have a small clot in the tip of this which I feel was narrowing it even more. Treatment Plan: The patient will be discharged instructions to follow-up with Dr. Brush in 4 days as previously scheduled. Return to the emergency department for any worsening symptoms. Disposition: To home in improved and stable condition. Impression: 1. Garcia catheter malfunction. 2. Renal insufficiency. This note was generated with [employer] dictation software. It may contain incorrect words, spelling, and punctuation that were not noted in review of the chart prior to signing ED Disposition - Plan for ED Patient: Chief Complaint: Garcia C/O Instructions: ED Catheter Care Garcia Prescriptions: Nystatin Powder [Mycostatin Powder] 1 applic TOPICAL TID #1 bottle Referrals: Ky Brush MD [STAFF PHYSICIAN] - Keep Jaky appointment
== END 2017-07-04 08:45 | disposition home or self-care (01) ==
PROVIDERS: Emergency Provider Emergency Medicine
DX: T83.098A Other mechanical complication of other urinary catheter, initial encounter (principal); N28.9 Disorder of kidney and ureter, unspecified; I10 Essential (primary) hypertension; E78.00 Pure hypercholesterolemia, unspecified; E11.9 Type 2 diabetes mellitus without complications; I48.91 Unspecified atrial fibrillation; E03.9 Hypothyroidism, unspecified; D64.9 Anemia, unspecified; I89.0 Lymphedema, not elsewhere classified; Z79.82 Long term (current) use of aspirin; Z79.84 Long term (current) use of oral hypoglycemic drugs; Z79.899 Other long term (current) drug therapy; Z87.442 Personal history of urinary calculi
CPT/HCPCS: 51702; 99283

== ENCOUNTER 2017-07-16 13:34 | Day surgery (SDC) | payer MEDICARE, SELFPAY ==
[2017-07-16] VITALS (9 sets, daily range): BP systolic 136–147; BP diastolic 58–68; PULSE 61–69; RESP 16–64; TEMP 36.2–37.3; O2SAT 88–98; BMI 44.6
[2017-07-16 14:41] LABS: Bedside Glucose 135 mg/dL (70-110)
[2017-07-16] MEDS: Cefazolin 2 GM in 0.9% Normal Saline 100 ML IV (15:51)
--- NOTE | 2017-07-16 16:40 | PCM.DC.URO ---
Discharge Diet: Light diet - advance as tolerated Discharge Activity: May not drive while taking narcotic pain medications. Call your doctor if your incision/area has: Continuous Slow Oozing, Sudden Increased Bleeding, Increased Pain/ Swelling, Increased Redness, Foul Smelling Discharge, Swelling at the incision site Call your doctor if you observe: Fever of 101 or Higher Suture Line Care: Avoid Pulling/Pushing, Avoid Pinching/Bending Instructions: Treating Kidney Stones: Ureteroscopic Stone Removal Allergies/Adverse Reactions: Allergies lisinopril Adverse Reaction (Verified 07/14/17 13:17) Other COUGH Medications to take at Discharge Aspirin [Aspirin, Baby] 81 mg PO DAILY@0800 06/20/17 Atorvastatin Calcium [Lipitor] 10 mg PO QHS 06/20/17 Ferrous Sulfate 325 mg PO BID 06/20/17 Furosemide [Lasix] 40 mg PO DAILY 06/20/17 Levothyroxine [Synthroid] 137 mcg PO DAILY 06/20/17 Multivit-Min/FA/Lycopen/Lutein [Centrum Silver Tablet] 1 each PO DAILY 06/20/17 Omeprazole [Prilosec] 20 mg PO DAILY 06/20/17 Amlodipine [Norvasc] 10 mg PO DAILY #30 tab 06/27/17 Glipizide [Glipizide ER] 2.5 mg PO DAILY #30 tab.er.24 06/27/17 Metoprolol Tartrate [Lopressor (beta norm)] 50 mg PO BID #60 tab 06/27/17 Nystatin Powder [Mycostatin Powder] 1 applic TOPICAL TID #1 bottle 07/04/17 Allopurinol 100 mg PO DAILY #30 tab 07/16/17 Ciprofloxacin [Cipro] 500 mg PO BID #14 tab 07/16/17 Hydrocodone/Acetaminophen [[place] 5-325 Tablet] 1 ea PO Q4H PRN PRN 7 Days #14 tab 07/16/17 Potassium Citrate [Urocit-K] 10 meq PO TID #90 tablet.er 07/16/17 The following prescriptions were given: Hydrocodone/Acetaminophen [[place] 5-325 Tablet] 1 ea PO Q4H PRN PRN 7 Days #14 tab PRN Reason: Pain Allopurinol 100 mg PO DAILY #30 tab Ciprofloxacin [Cipro] 500 mg PO BID #14 tab Potassium Citrate [Urocit-K] 10 meq PO TID #90 tablet.er Primary Care Physician: Lily Keller MD [Primary Care Provider] - Please Follow Up With: Ky Brush MD - to remove stent. When: July 31 at 10:30 am.
--- NOTE | 2017-07-16 16:41 | PCM.OPRPT ---
Report of Operation Date of Procedure: 07/16/17 Pre-Operative Diagnosis: Left large ureteral calculi causing obstruction of the left UPJ Post-Operative Diagnosis: Same Surgery/Procedure Performed:: cystoscopy left retrograde pyelogram left ureteroscopy laser of stone, and left stent placement with string Description of Surgical Findings:: 82-year-old female presents to the hospital she initially had an infected stone and a stent was placed she now presents for treatment of the stone so we will perform ureteroscopy and laser of the stone. 82-year-old female was taken back to the operating room at the smooth induction of anesthesia she underwent a MAC local anesthesia with lidocaine jelly in her bladder and local and monitored sedation. Went into the bladder with a cystoscope grabbed the existing stent pulled out the meatus advanced a wire through the stent to left the wire in place over the wire went in with a ureteroscope was able to go all the way up to the kidney pulled out the wire and then inspected and found a large 1 cm stone at the left UPJ junction. I then performed laser lithotripsy and the stone with a 300 ?m laser fiber the stone was laser little tiny pieces's settings were 0.4 J and 20 Hz for most of the lasering and the stone was laser little tiny pieces that should all pass on her own possible this could be uric acid stone was not visible on KUB. After the stone was lasered completely retrograde pyelogram was performed and then I worked my way down the ureter some fragments were passed and on the ureter but no major fragments within the ureter but a wire up the ureteroscope over the ureter wire I placed a stent left a stent on a string for extraction. Drain the bladder position the stent between the bladder and the kidney properly and then left the string on the stent coming out the meatus for extraction should be given an appointment in about 2 weeks to remove the stent and given prescriptions for home. Type of Anesthesia:: General Drains: stent left side. - Admit VTE Documentation VTE Present on Admission: No VTE Mechan Device Prophylaxis: SCD's VTE Pharm Prophylaxis ordered?: No Reason prophylaxis not ordered:: Treatment Not Indicated
[2017-07-16 17:41] LABS: Bedside Glucose 119 mg/dL (70-110)
== END 2017-07-16 18:11 | disposition home or self-care (01) ==
LOC: SDC 13:36 → ACINP 13:48
PROVIDERS: Visit Provider Urology
PROC: 0TJ98ZZ Inspection of Ureter, Via Natural or Artificial Opening Endoscopic (ICD-10-PCS; CPT 52352; principal; 2017-07-16 15:25)
DX: N13.2 Hydronephrosis with renal and ureteral calculous obstruction (principal); Z87.442 Personal history of urinary calculi; I48.91 Unspecified atrial fibrillation; I27.20 Pulmonary hypertension, unspecified; K21.9 Gastro-esophageal reflux disease without esophagitis; E03.9 Hypothyroidism, unspecified; E11.9 Type 2 diabetes mellitus without complications; Z79.84 Long term (current) use of oral hypoglycemic drugs; Z79.82 Long term (current) use of aspirin; Z79.899 Other long term (current) drug therapy
CPT/HCPCS: 00873; 52356; 76000; 82962; J7120; C1769; C2617

== ENCOUNTER → 2017-08-06 12:08 | Outpatient (CLI) | payer MEDICARE, SELFPAY ==
[2017-08-06 13:41] LABS: Anion Gap 9 (5-15); BUN 38 mg/dL (7-18); BUN/Creat Ratio 25.9 RATIO (10-20); Chloride 100 mmol/L (98-107); Creatinine, Serum 1.47 mg/dL (0.55-1.02); EST Glomerular Filtration Rate 36 mL/min (>60); Est Glom Filt Rate - Afr Amer 44 mL/min (>60); Glucose 217 mg/dL (74-106); Potassium 4.7 mmol/L (3.5-5.1); Sodium Level 138 mmol/L (136-145)
== END ==
PROVIDERS: Visit Provider Internal Medicine Nephrology
DX: E87.5 Hyperkalemia (principal)
CPT/HCPCS: 36415; 80048

== ENCOUNTER → 2018-04-02 08:36 | Outpatient (CLI) | payer MEDICARE, SELFPAY ==
--- NOTE | 2018-04-02 08:43 | CT_ITS ---
STUDY: CT ABDOMEN AND PELVIS WITHOUT CONTRAST REASON FOR EXAM: Female, 83 years old. Bilateral flank pain and hip pain. RADIATION DOSAGE (If Supplied By Facility): CTDIvol = ( 23.14 ) mGy, DLP = ( 1144.56 ) mGycm TECHNIQUE: Transaxial images were obtained from the dome of the diaphragm to the symphysis pubis without oral contrast, and without intravenous contrast. Sagittal and coronal images were reconstructed. Individualized dose optimization techniques were used for this CT. COMPARISON: None. FINDINGS: The visualized lung bases are unremarkable. Coronary artery calcification. Normal liver. Normal gallbladder and extrahepatic biliary system. Normal spleen. Normal pancreas. Normal bilateral adrenal glands. There is a 4.5 cm x 4.5 cm well-defined round cystic structure arising from the upper midportion of the right kidney in keeping with a cyst. There is also evidence of a 2.7 cm x 2 cm cyst in the mid posterior aspect of the right kidney. There is a 4 mm nonobstructive calculus in the lower pole calyx of the right kidney. Normal left kidney. There is a small hiatal hernia. Normal small intestine. There are multiple colonic diverticula consistent with diverticulosis. The appendix is visualized and appears normal. There is diffuse atherosclerotic calcification of the abdominal aorta, without a demonstrated aneurysm. Normal inferior vena cava. There is borderline retroperitoneal lymphadenopathy with enlarged nodes no greater than 10mm in the short axis diameter. Normal urinary bladder. There is a small umbilical hernia containing fat. There are diffuse degenerative changes of the visualized lumbar spine. CT/Abdomen/Pelvis without Cont IMPRESSION: Right renal cysts. Nonobstructive calculus in the lower pole calyx of the right kidney. Sigmoid diverticulosis. Electronically Signed: Rojas Henriquez MD at 9:31 EST Tel [phone], Service support ,
== END ==
PROVIDERS: Referring Provider Nurse Practitioner Adult Health; Visit Provider Nurse Practitioner Adult Health
DX: N20.0 Calculus of kidney (principal); K57.30 Diverticulosis of large intestine without perforation or abscess without bleeding
CPT/HCPCS: 74176

== ENCOUNTER 2018-04-14 14:18 | Inpatient (IN) | payer MEDICARE, SELFPAY ==
[2017-07-16 14:13] VITALS: BMI 44.6
[2018-04-14] MEDS: 0.9% Normal Saline 1,000 ML 125 ML IV ×2 (14:15→17:29)
[2018-04-14 14:30] VITALS: BP 94/40; PULSE 73; RESP 16; TEMP 36.3; O2SAT 95; BMI 35.1
[2018-04-14] MEDS: Ondansetron 4 MG/2 ML Vial IV (14:40)
[2018-04-14 14:47] VITALS: BMI 35.1
--- NOTE | 2018-04-14 14:51 | CT_ITS ---
STUDY: CT ABDOMEN AND PELVIS WITHOUT CONTRAST REASON FOR EXAM: Female, 83 years old. Acute kidney injury. RADIATION DOSAGE (If Supplied By Facility): CTDIvol = ( 14.80 ) mGy, DLP = ( 622.44 ) mGycm TECHNIQUE: Transaxial images were obtained from the dome of the diaphragm to the symphysis pubis without oral contrast, and without intravenous contrast. Sagittal and coronal images were reconstructed. Individualized dose optimization techniques were used for this CT. COMPARISON: Comparison is made with prior examination dated April 02, 2018. FINDINGS: The visualized lung bases are unremarkable. Coronary artery calcification. Normal liver. Findings suggestive of sludge within the gallbladder lumen. Normal spleen. Normal pancreas. Normal bilateral adrenal glands. Stable right renal cysts. The larger cyst measures 4.5 cm x 4.5 cm. Stable 4 mm nonobstructive calculus in the lower pole calyx of the right kidney. Normal left kidney. There is a small hiatal hernia. Normal small intestine. There are multiple colonic diverticula consistent with diverticulosis. The appendix is visualized and appears normal. There is diffuse atherosclerotic calcification of the abdominal aorta and its major visceral branches, without a demonstrated aneurysm. Normal inferior vena cava. There is borderline retroperitoneal lymphadenopathy with enlarged nodes no greater than 10mm in the short axis diameter. A Garcia catheter is seen within the urinary bladder. Urinary bladder is empty. There is a small umbilical hernia containing fat. There are diffuse degenerative changes of the visualized lumbar spine. CT/Abdomen/Pelvis without Cont IMPRESSION: Bilateral renal cysts. Nonobstructive right intrarenal calculus. There has been no change since prior study. Electronically Signed: Rojas Henriquez MD at 15:52 EST Tel [phone], Service support ,
--- NOTE | 2018-04-14 14:52 | EKG12_ITS ---
Test Reason : Blood Pressure : / mmHG Vent. Rate : 081 BPM Atrial Rate : 081 BPM P-R Int : 146 ms QRS Dur : 156 ms QT Int : 442 ms P-R-T Axes : 050 085 038 degrees QTc Int : 513 ms Normal sinus rhythm Right bundle branch block Inferior infarct , age undetermined Abnormal ECG Confirmed by NOHEMI SINCLAIR, NINO ([id number]), restaurant expeditor JONO GREGG ([id number] on 04/17/2018 2:42:31 PM Referred By: Mac Emery Confirmed By:NINO SONG MD
--- NOTE | 2018-04-14 14:56 | HP.PCM_ITS ---
Problem List (1) Left nephrolithiasis Status: Chronic (2) Hydroureter, left Status: Chronic (3) HTN (hypertension) Status: Chronic Qualifiers: (4) HLD (hyperlipidemia) Status: Chronic Qualifiers: (5) Chronic lymphedema Status: Chronic (6) Iron deficiency anemia Status: Chronic Qualifiers: (7) Morbid obesity Status: Chronic (8) Chronic venous stasis dermatitis Status: Chronic History of Present Illness Date of Admission: 04/14/18 Chief Complaint: Direct admit from outside facility. The patient is a 83 year old F with past medical history as mentioned above directly admitted from outside facility for acute renal failure and hyperkalemia. At this time, patient is not able to provide good history because she is sick, has been throwing up and feeling very weak. Patient's son was at the bedside and they provide most of the information. Patient went to see her PCP yesterday because she had a nosebleed as she has been on Eliquis for history of chronic atrial fibrillation. She had a blood work done and her son took her to the emergency department at another hospital because of weakness, nausea and vomiting. The patient complains of nausea and vomiting for the last several days. She denied abdominal pain, constipation or diarrhea. She reports dysuria and decreased urine output. She denied chest pain or shortness of breath. She had blood work done at the outside facility today reportedly, her creatinine was 8.3. Yesterday, she had a blood work done as outpatient and her BUN was 172 and creatinine was 7.12. Late May,, patient had left ureteral kidney stone with obstruction, hydronephrosis and hydroureter and she underwent cystoscopy with placement of left ureteral stent. During that admission, she was found to have acute kidney injury secondary to obstructive uropathy that was treated with IV fluids and her kidney function improved. She had a history of type 2 diabetes mellitus and she has been on oral hypoglycemic drugs and most recent A1c was back on May, and it was 6.5. She had a history of hypertension which seems to be under control with Norvasc, metoprolol and Lasix. She had a history of iron deficiency anemia, has been on iron supplement and her hemoglobin yesterday was 16.2 g/dL. At this time, she is afebrile, blood pressure is 94/40, pulse ox is 95% on room air. Routine blood work from yesterday April 13, 2018 reviewed and remarkable for sodium of 128, potassium of 6.4, serum bicarb of 12, BUN of 172 and creatinine of 7.12. LFT was normal. Lactic acid was 10.4. EKG that was done today at the outside facility revealed A. fib, rate is controlled, RBBB, no acute ischemic changes. She is being admitted for acute renal failure, hyperkalemia and metabolic acidosis probably due to lactic acidosis. Past Medical History Past Medical History (Chronic Problems): Chronic Problems Left nephrolithiasis (Chronic) Hydroureter, left (Chronic) Hydronephrosis, left (Chronic) HTN (hypertension) (Chronic) HLD (hyperlipidemia) (Chronic) Chronic lymphedema (Chronic) Iron deficiency anemia (Chronic) Morbid obesity (Chronic) Chronic venous stasis dermatitis (Chronic) Allergies lisinopril Adverse Reaction (Verified 07/14/17 13:17) Other COUGH Home Medications: Ambulatory Orders Medication Instructions Recorded Aspirin [Aspirin, Baby] 81 mg PO DAILY@0800 06/20/17 Atorvastatin Calcium [Lipitor] 10 mg PO QHS 06/20/17 Ferrous Sulfate 325 mg PO BID 06/20/17 Furosemide [Lasix] 40 mg PO DAILY 06/20/17 Levothyroxine [Synthroid] 137 mcg PO DAILY 06/20/17 Multivit-Min/FA/Lycopen/Lutein 1 each PO DAILY 06/20/17 [Centrum Silver Tablet] Omeprazole [Prilosec] 20 mg PO DAILY 06/20/17 Amlodipine [Norvasc] 10 mg PO DAILY #30 tab 06/27/17 Glipizide [Glipizide ER] 2.5 mg PO DAILY #30 tab.er.24 06/27/17 Metoprolol Tartrate [Lopressor 50 mg PO BID #60 tab 06/27/17 (beta norm)] Nystatin Powder [Mycostatin Powder] 1 applic TOPICAL TID #1 bottle 07/04/17 Allopurinol 100 mg PO DAILY #30 tab 07/16/17 Ciprofloxacin [Cipro] 500 mg PO BID #14 tab 07/16/17 Hydrocodone/Acetaminophen [[place] 1 ea PO Q4H PRN PRN 7 Days #14 tab 07/16/17 5-325 Tablet] Potassium Citrate [Urocit-K] 10 meq PO TID #90 tablet.er 07/16/17 Surgical History: no surgical history, - - Denies any surgical history. Psychiatric History: No pertinent psych hx Lives: With Family Smoking Status: Never smoker Alcohol: None Drugs: None - *Family History Maternal History Items: - - She denies any marked maternal or paternal family history including heart disease, diabetes, cancer. Paternal History Items: - - She denies any marked maternal or paternal family history including heart disease, diabetes, cancer. Sibling History Items: Cancer Review of Systems Constitutional: Reports: Anorexia, Weakness, Fatigue. Denies: Chills, Fever Eyes: Denies: Blurred vision, Double vision, Drainage, Redness HEENT: Denies: Difficulty Hearing, Ear Pain, Eye Pain, Nasal Congestion, Sore Throat Cardiovascular: Reports: Edema. Denies: Chest Pain, Chest Pressure, Chest Tightness, Palpitations, Syncope Respiratory: Denies: Cough, Pleuritic Pain, Shortness of Breath, Sputum production, Wheezing Gastrointestinal: Reports: Nausea, Vomiting. Denies: Abdominal Pain, Constipation, Diarrhea Genitourinary: Reports: Dysuria. Denies: Frequency, Hematuria Musculoskeletal: Denies: Arm Pain, Back Pain Skin: Denies: Dryness, Jaundice Neurological: Denies: Balance problems, Double vision, Change in Speech, Slurred speech, Headaches, Incoordination, Numbness Psychiatric: Denies: Anxiety, Depression Endocrine: Denies: Change in Body Habitus, Polydipsia VTE Information - Inpt Only VTE Present on Admission: No VTE Mechan Device Prophylaxis: None VTE Pharm Prophylaxis ordered?: No - Physical Exam General: Alert, Oriented x3, Cooperative, - - Patient has been throwing up during the encounter. HEENT: Atraumatic, PERRLA, EOMI, Normocephalic Oral: Moist Mucosa, No Gingival or Mucosal Lesions/ Ulcerations Neck: Supple, No JVD, Negative Carotid Bruits, Trachea Midline, Thyroid Normal Size and Texture Lungs: Clear to auscultation, No rhonchi, No wheeze, No rales, Diminished Cardiovascular: Normal S1, Normal S2, No murmurs, PMI Normal, Irregular Rate Abdomen: Bowel Sounds Present, Soft, Non Tender, Non-Distended, No Hepato- splenomegaly Extremities: No clubbing, No cyanosis, Edema - Bilateral leg lymphedema, edema, stasis dermatitis, small open wounds with seeping of serous fluid. Skin: No rashes, Ulcer/ Wound Lymphatic: No Cervical, Supraclavicular, or Inguinal Adenopathy Neurological: Cranial nerves II-XII grossly intact, Motor Exam 5/5 strength throughout Psych/Mental Status: Normal Affect, Appropriate, Alert and oriented to time, place, person, mood and affect Vital Signs Temp Pulse Resp BP Pulse Ox 97.4 F L 73 16 94/40 L 95 04/14/18 14:30 04/14/18 14:30 04/14/18 14:30 04/14/18 14:30 04/14/18 14:30 Oxygen Delivery Method Room Air Weight: 185 lb 13.595 oz Body Mass Index (BMI) 35.1 Finger Stick Blood Glucose 119 Laboratory data from April 13, 2018: CBC: WBC is 8.5, hemoglobin 16.2, platelet count is 371,000. BMP: Sodium 128, potassium 6.4, CO2 12, BUN 172, creatinine 7.12. Reportedly, today's creatinine was 8.3. LFT was normal. TSH 1.60. Lactic acid 10.4. EKG revealed A. fib, rate is controlled, RBBB, no acute changes. Clinical Impression(s) from Imaging Studies Abdomen/Pelvis CT 04/14/18 14:51 IMPRESSION: Bilateral renal cysts. Nonobstructive right intrarenal calculus. There has been no change since prior study. Electronically Signed: Rojas Henriquez MD at 15:52 EST Tel [phone], Service support , Assessment/Plan This is an 83 years old female patient directly admitted from outside facility because of acute renal failure, metabolic acidosis and hyperkalemia. #1 acute renal failure: Admission creatinine is 7.17, most recent creatinine was from Jul, 2017 and it was 1.47. On May,, patient was admitted for left ureteral stone with obstruction, left hydronephrosis and hydroureter, underwent cystoscopy and placement of left ureteral stent. During that admission, her creatinine went up to 3.87 and it came down to 2.96 after stent placement and IV fluids. This is probably due to ATN secondary to low blood pressure and medication side effects. CT scan abdomen and pelvis done today and revealed nonobstructive right intrarenal calculus and bilateral renal cysts, normal left kidney, no evidence of obstructive uropathy. Plan: Admit to PCU, cardiac monitoring, IV fluids, input output chart, nephrology consult, maintain Garcia catheter, repeat CBC and BMP tomorrow morning, hold nephrotoxic drugs, urine sod ium, urine potassium, urine creatinine, urine chloride, urine protein, PT OT evaluation and treatment. #2 hyperkalemia: Secondary to above. Potassium was 6.4 at the outside facility. She received 1 dose of Kayexalate, potassium is down to 5.8 at this time. EKG revealed A. fib, RBBB, no acute changes. Plan: IV fluids as above, nephrology consult, repeat BMP tomorrow morning. #3 metabolic acidosis: Again secondary to acute renal failure. Serum bicarb is 9. At this time, her respiratory status is stable, pulse ox is maintained on room air. Plan to treat underlying acute renal failure, repeat BMP tomorrow morning. #4 probable acute cystitis: Urine looks dirty and cloudy. Urinalysis revealed cloudy urine, positive for leukocyte esterase, there was more than 100 WBC and 1+ bacteria. Plan: Urine culture, start IV ertapenem. During last admission, urine culture revealed Enterobacter aerogenes that was resistant to Rocephin and Zosyn. #5 recent history of left ureteral obstructing stone/left hydroureter/left hydronephrosis: CT scan abdomen and pelvis today revealed normal left kidney, nonobstructing right kidney stone and no evidence of obstructive uropathy. Plan as above. #6 hypertension: At this time, blood pressure is borderline, tends to be low. Plan to hold all antihypertensive medications, IV fluid bolus and then maintenance fluid, patient may need to go to ICU if IV pressors are needed. #7 type 2 diabetes mellitus: ADA diet, Accu-Cheks, insulin sliding scale, continue glipizide. #8 chronic iron deficiency anemia: Baseline hemoglobin has been around 9-10 g/dL , stable at baseline. Plan to continue iron supplement. #9 hyperlipidemia: Continue statins when home medication list updated. #10 hypothyroidism: Continue levothyroxine, TSH was 1.60 today, normal. #11 CODE STATUS: Full code. I discussed this with the patient herself and her son. The son mentioned that it is up to his mother. The mother kind of not sure what to do but she stated that she wants everything to be done at this time. I requested the patient to think about what we should do in case of her heart stopped working or she cannot breathe on her own but for now she will be a full code. #12 DVT prophylaxis: Subcu heparin. This note was generated with [employer] dictation software. It may contain incorrect words, spelling, and punctuation that were not noted in checking the note before signing. Code Visit Inpatient E&M: 57334 Init Hosp L3
--- NOTE | 2018-04-14 15:20 | RAD_ITS ---
STUDY: X-RAY CHEST REASON FOR EXAM: Female, 83 years old. Cough. Acute kidney injury. TECHNIQUE: Single frontal view of the chest. COMPARISON: June 21, 2017 FINDINGS: There is no new focal consolidation. There are stable prominent interstitial markings. Normal size heart. Normal mediastinum and rachel. Normal visualized pulmonary arteries. There is atherosclerotic calcification of the aortic arch with tortuosity. Normal visualized thoracic spine. Normal visualized ribs, clavicles, and shoulders. There is no demonstrated abnormality of the visualized soft tissue structures of the upper abdomen. RAD/Chest 1 View (Portable) IMPRESSION: No acute cardiopulmonary process. Electronically Signed: Eve Garcia MD at 23:15 EST Tel , Service support ,
--- NOTE | 2018-04-14 15:27 | PCM.CONS.R ---
Consultation - Renal 04/14/18 PCP/ Referring MD: Requesting physician: [] Primary care physician: Lily Keller MD Reason for Consultation:: RUBINA, hyperkalemia - History of Present Illness History of Present Illness: The patient is an 83 year old F who was seen on consult back in June 2017 at [facility] for RUBINA from ATN, obstructed stone requiring left ureteral stent. Creatinine was 3.87 in June improved to 1.42 in July 2017. She is admitted for renal failure with creatinine up to 8.[address] abdomen from [facility] showed nonobstructive 4 mm stone in the right kidney, normal left kidney. Baseline creatinine 1.2 in the past from [facility]. She has a history of UTI with enterobacter aerogenes. She is morbidly obese with HTN, DMT2, atrial fibrillation. She is on diuretics, lasix, chronically at home as well as losartan. She and her son denied NSAID use. She had a history of iron deficiency anemia, has been on iron supplement and her hemoglobin yesterday was 16.2 g/dL. Patient has not been able to keep any fluids down for the past 2 days due to nausea and vomiting. She admits to dysuria for the past week. Her PCP had recommended to follow-up with urology. She was started on an antibiotic as an outpatient by urology. Patient's son is not able to recollect the name of the medication. She has generalized weakness, lightheadedness and dizziness. BP was low on presentation at 94/40. She denies any chest pain or syncope. She has chronic lower extremity erythema with swelling. She denied abdominal pain or diarrhea but does have constipation. She also had complaints of head and neck pain. She denied any fever or chills. Patient's son is at the bedside providing history. Patient went to see her PCP yesterday for nosebleed. She is on Eliquis for history of chronic atrial fibrillation.She had a blood work done as outpatient on 04/13/18. BUN was 172 and creatinine was 7.12 with potassium of 6.4 from OSH. Lactic acid was 10.4. EKG that was done today at the outside facility revealed A. fib, rate is controlled, RBBB, no acute ischemic changes. - Allergies Allergies: Allergies lisinopril Adverse Reaction (Verified 07/14/17 13:17) Other COUGH - Current Medications Current Medications: Current Medications Acetaminophen (Tylenol) 650 mg PO Q6H PRN PRN PRN Reason: Fever, headache, pain Sodium Chloride () 1,000 mls @ 125 mls/hr IV .Q8H EDEN Insulin Human Lispro (Humalog Kwikpen (Bkc)) 0 unit SC ACHS EDEN; Protocol Magnesium Hydroxide (Milk Of Magnesia) 30 ml PO DAILY PRN PRN PRN Reason: Constipation Ondansetron HCl (Zofran) 4 mg IV Q6H PRN PRN PRN Reason: NAUSEA/VOMITING - Past Medical History Past Medical History (Chronic Problems): Chronic Problems Left nephrolithiasis (Chronic) Hydroureter, left (Chronic) Hydronephrosis, left (Chronic) HTN (hypertension) (Chronic) HLD (hyperlipidemia) (Chronic) Chronic lymphedema (Chronic) Iron deficiency anemia (Chronic) Morbid obesity (Chronic) Chronic venous stasis dermatitis (Chronic) - Past Surgical History Surgical History: no surgical history, - - Denies any surgical history. - Social History Smoking Status: Never smoker Alcohol: None Drugs: None - Family History Maternal History Items: Diabetes, - Paternal History Items: Heart Disease, - Sibling History Items: Cancer Review of Systems Constitutional: Reports: Anorexia, Malaise, Weakness, Fatigue. Denies: Chills, Fever Eyes: Denies: Blurred vision HEENT: Reports: Nasal bleeding, - - Epistaxis on Eliquis at home. Denies: Head Aches Cardiovascular: Reports: Edema - Chronic, Light Headedness. Denies: Chest Pain, Orthopnea, Syncope Respiratory: Denies: Cough, Hemoptysis, Shortness of Breath Gastrointestinal: Reports: Constipation, Nausea, Vomiting. Denies: Abdominal Pain, Diarrhea Genitourinary: Reports: Dysuria, - - Decreased urinary output past 2 days Musculoskeletal: Reports: Back Pain, Neck Pain, - - Generalized weakness Skin: Reports: Skin Changes - Erythema bilateral lower extremities chronic with scaling, - Neurological: Reports: Balance problems, Tremor. Denies: Numbness, Seizures Hematologic/ Lymphatic: Reports: Anemia. Denies: Hx of blood clot - Physical Exam General: Alert, Oriented x3, Cooperative, No apparent distress HEENT: PERRLA, EOMI Oral: Dry Mucosa Neck: Supple, No JVD Lungs: Clear to auscultation Cardiovascular: Irregular Rate - Atrial fibrillation on monitor with bundle branch block Abdomen: Bowel Sounds Present, Soft, Non Tender, Non-Distended, Obese Extremities: Edema Skin: - - Chronic venous stasis skin changes bilateral lower extremity with mild erythema and scaling Musculoskeletal: - - Muscle weakness bilateral lower extremities Neurological: - - Generalized weakness present, No tremor or asterixis Psych/Mental Status: Normal Affect, Appropriate, Alert and oriented to time, place, person, mood and affect Vital Signs Temp Pulse Resp BP Pulse Ox 97.4 F L 73 16 94/40 L 95 04/14/18 14:30 04/14/18 14:30 04/14/18 14:30 04/14/18 14:30 04/14/18 14:30 Oxygen Delivery Method Room Air Weight: 84.3 kg Body Mass Index (BMI) 35.1 Finger Stick Blood Glucose 119 Clinical Impression(s) from Imaging Studies Abdomen/Pelvis CT 04/14/18 14:51 IMPRESSION: Bilateral renal cysts. Nonobstructive right intrarenal calculus. There has been no change since prior study. Electronically Signed: Rojas Henriquez MD at 15:52 EST Tel [phone], Service support , Assessment/Plan 1. Acute kidney injury suspect due to dehydration, hypotension, possible acute tubular necrosis from shock. Patient on losartan and Lasix at home. Agreed to discontinue due to his low her low blood pressures. Discussed with patient and patient's son at bedside regarding possible need for hemodialysis. Patient states she is not ready to do aggressive therapy at this time and would like to try correcting with medical therapy. Check stat renal panel. Hemoglobin 16 to suggest hemoconcentration. Continue with IV hydration. Oxygenation stable. Avoid all nephrotoxins. Hold losartan and Lasix. Avoid NSAIDs as they have been doing at home. 2. Sepsis syndrome without leukocytosis or fever. Check urine C/S. Lactic acidosis present. 3. Acute hyperkalemia due to metabolic acidosis, acute renal failure. Received Kayexalate x1 dose at outside hospital with bowel movement according to nursing staff. Repeat potassium now. 4. History of nephrolithiasis with obstructive stone on the left kidney back in June 2017. CT of the abdomen without obstructive stone in the right kidney. 5. UTI check urine C/S. IV antibiotic therapy per primary service. 6. Chronic atrial fibrillation with rate control 7. Acute epistaxis due to Eliquis and renal failure. Hold Eliquis for now. 8. Hypertension with low blood pressures hold all blood pressure medications for now. 9. Diabetes mellitus type 2 with stable blood sugar.
[2018-04-14 16:39] LABS: Absolute Lymphocyte Count 0.24 X10^3/ul (0.83-4.51); Absolute Neutrophil Count 10.3 X10^3/uL (2.0-7.7); Basophil# 0.01 X10^3/uL; Basophil% 0.1 % (0-1); Eosinophil# 0.02 X10^3/uL; Eosinophils% 0.2 % (0-5); Hematocrit 30.3 % (37-47); Hemoglobin 10.2 g/dl (12.0-15.0); Lymphocyte # 0.24 X10^3/ul (4.0); Lymphocyte % 2.3 % (19-41); Mean Corp Hgb Conc 33.7 g/gl (32-36); Mean Corpuscular Hgb 32.3 pg (27.0-32.0); Mean Corpuscular Volume 95.9 fL (81-99); Mean Platelet Vol. 9.6 fl (6.2-12.0); Monocyte# 0.07 X10^3/uL; Monocyte% 0.7 % (0-10); Neutrophil # 10.27 X10^3/uL (2.7-7.7); Neutrophil % 96.3 % (47-70); Platelet Count 240 K/mm3 (150-450); RBC Distribution Width CV 14.2 % (11.6-14.6); RBC Distribution Width SD 47.2 fl (35.1-43.9); Red Blood Count 3.16 M/mm3 (4.2-5.4); White Blood Count 10.7 K/mm3 (4.4-11.0)
--- NOTE | 2018-04-14 16:40 | EKG12_ITS ---
Test Reason : ARRYTHMIA Blood Pressure : / mmHG Vent. Rate : 083 BPM Atrial Rate : 083 BPM P-R Int : 144 ms QRS Dur : 150 ms QT Int : 436 ms P-R-T Axes : 050 084 040 degrees QTc Int : 512 ms Normal sinus rhythm Right bundle branch block Possible Inferior infarct , age undetermined Abnormal ECG Confirmed by NOHEMI SINCLAIR, NINO ([id number]), editor publications JONO GREGG ([id number]) on 04/17/2018 2:41:57 PM Referred By: Mac Emery Confirmed By:NINO SONG MD
[2018-04-14 16:47] LABS: Differential Indicated SCAN CRITERIA MET; POSITIVE COUNT NO; POSITIVE DIFFERENTIAL YES; POSITIVE MORPHOLOGY NO
[2018-04-14 16:54] LABS: International Normalized Ratio 1.5; Prothrombin Time (Protime)PT. 18.1 SECONDS (11.7-14.9)
[2018-04-14 17:17] LABS: Anisocytosis RARE; Platelet Estimate ADEQUATE (ADEQ)
[2018-04-14 17:18] LABS: Macrocytosis RARE
[2018-04-14] MEDS: Acetaminophen 325 MG Tablet 650 MG PO (17:29)
[2018-04-14 17:30] LABS: Bedside Glucose 93 mg/dL (70-110)
[2018-04-14 17:35] VITALS: O2SAT 95
[2018-04-14 17:47] LABS: Mucous, Urine 0 SEEN /hpf (<or=2+); Red Blood Cells-Urine 0 SEEN /hpf (0-5); Squamous Epithelial Cells - UA 0 SEEN /hpf (5-10)
[2018-04-14 18:22] LABS: Protein, Urine (Random) 97.9 mg/dL (<11.9)
[2018-04-14 18:34] VITALS: BP 87/38; PULSE 91; RESP 16; TEMP 36.3; O2SAT 98
[2018-04-14 18:39] LABS: Urine Sodium 16 mmol/L (Not Establ.)
[2018-04-14] MEDS: 0.9% Normal Saline 1,000 ML 999 ML IV (18:45)
[2018-04-14 18:54] LABS: Color, Urine Yellow (Yellow); Glucose, Dipstick Normal (Normal); Ketone-Dipstick Negative (Negative); Leukocyte Esterase-Dipstick 500 /ul (Negative); Nitrite-Dipstick Negative (Negative); Occult Blood-Urine 250 /ul (Negative); Protein-Dipstick 100 mg/dl (Negative); Urine Bilirubin Dipstick Negative (Negative); Urine Clarity Cloudy (Clear); Urine Urobilinogen Normal (Normal)
[2018-04-14 18:58] LABS: ALB/GLOB Ratio 0.6 RATIO (0.9-2.4); AST(SGOT) 30 U/L (15-37); Alanine Aminotransfer ALT/SGPT 18 U/L (13-56); Albumin, Serum 2.6 g/dL (3.2-5.0); Alkaline Phosphatase 81 U/L (45-117); Anion Gap 18 (5-15); BUN 173 mg/dL (7-18); BUN/Creat Ratio 24.1 RATIO (10-20); Calcium,Total 8.7 mg/dL (8.5-10.1); Chloride 107 mmol/L (98-107); Creatinine, Serum 7.17 mg/dL (0.55-1.02); EST Glomerular Filtration Rate 6 mL/min (>60); Est Glom Filt Rate - Afr Amer 7 mL/min (>60); Estimated Creatinine Clearance 4.49 ml/min; Globulin 4.4 g/dL (2.2-4.2); Glucose 91 mg/dL (74-106); Potassium 5.8 mmol/L (3.5-5.1); Sodium Level 134 mmol/L (136-145)
[2018-04-14 19:06] LABS: Bacteria 1+ /hpf (None Seen); White Blood Cells >100 SEEN /hpf (0-5)
[2018-04-14 19:26] VITALS: PULSE 93
--- NOTE | 2018-04-14 19:37 | ECHOCS_ITS ---
Reason For Study: HTN Procedure This was a 2D Doppler, Color Flow transthoracic echocardiogram. Exam performed portable in patient room. Left Ventricle Normal LV size. Left ventricular systolic function is normal. The estimated ejection fraction is 65 %. Stage 1 diastolic dysfunction. No regional wall motion abnormalities noted. Right Ventricle Normal RV size. Normal systolic function. Atria Normal left atrium. Normal right atrium. Mitral Valve Normal mitral valve. Tricuspid Valve Normal tricuspid valve. Aortic Valve Trisinus/trileaflet aortic valve. Mild focal aortic valve calcification. Peak aortic valve gradient 24 mmHg. Mean aortic valve gradient 13 mmHg. Mild aortic stenosis. Pulmonic Valve Normal pulmonic valve. Great Vessels Normal aortic root. The pulmonary artery is normal size. Normal inferior vena cava. Pericardium/Pleural No pericardial effusion. Medication Diluted definity 2.5ml given slow IV push to enhance endocardial definition. MMode/2D Measurements & Calculations LVIDd: 3.8 cm IVSd: 0.96 cm LVOT diam: 2.0 cm LVIDs: 2.2 cm LVPWd: 1.1 cm RVDd: 2.9 cm FS: 40.7 % LVOT area: 3.0 cm2 Ao root diam: 3.7 cm LAV(MOD-bp): 56.9 ml LA A4 area: 19.7 cm2 LAV(MOD-bp) Indexed: 31.1 ml/m2 LAV(MOD-sp2): 56.2 ml LAV(MOD-sp4): 50.8 ml LA dimension(2D): 3.4 cm RA A4 area: 9.4 cm2 Doppler Measurements & Calculations MV E max shine: 69.1 cm/sec Lat Peak E' Shine: 8.4 cm/sec Med Peak E' Shine: 3.9 cm/sec MV A max shine: 111.2 cm/sec E/E' lat: 8.2 E/E' med: 17.8 MV E/A: 0.62 Ao V2 max: 246.1 cm/sec AI max shine: 360.7 cm/sec LV V1 max: 171.5 cm/sec Ao max P.2 mmHg AI max P.0 mmHg LV V1 max P.8 mmHg Ao V2 mean: 165.5 cm/sec AI dec slope: 223.0 cm/sec2 LV V1 mean P.1 mmHg Ao mean P.9 mmHg AI P1/2t: 473.6 msec LV V1 mean: 114.6 cm/sec Ao V2 VTI: 46.1 cm LV V1 VTI: 31.0 cm KIRILL(I,D): 2.0 cm2 KIRILL(V,D): 2.1 cm2 SV(LVOT): 92.8 ml PA V2 max: 158.2 cm/sec TR max shine: 262.8 cm/sec TR max P.6 mmHg Interpretation Summary Normal LV size. Left ventricular systolic function is normal. The estimated ejection fraction is 65 %. Stage 1 diastolic dysfunction. Mean aortic valve gradient 13 mmHg. Mild aortic stenosis. Contrast injection was performed. Ordering Physician: Quincy Carter Referring Physician: Mac Emery Performed By: Natasha Roth RDCS
[2018-04-14 20:30] VITALS: BP 107/39; PULSE 94; RESP 18; TEMP 36.9; O2SAT 96
[2018-04-14 21:00] LABS: Allen Test POS; Base Excess -21 mmol/L (-2 to +2); Bicarbonate 7.5 mmol/L (22-26); Blood Gas Specimen Type ART; O2 Delivery Device Room Air; PO2 96 mmHG (75-100); SITE L Radial; SO2 96 % (95-99); Time Given 2045; Total Carbon Dioxide 8 mmol/L; pCO2 20.3 mmHg (35-45); pH 7.17 (7.35-7.45)
[2018-04-14 22:29] LABS: Anion Gap 17 (5-15); BUN 171 mg/dL (7-18); BUN/Creat Ratio 24.7 RATIO (10-20); Calcium,Total 8.4 mg/dL (8.5-10.1); Chloride 111 mmol/L (98-107); Creatinine, Serum 6.93 mg/dL (0.55-1.02); EST Glomerular Filtration Rate 6 mL/min (>60); Est Glom Filt Rate - Afr Amer 7 mL/min (>60); Estimated Creatinine Clearance 4.64 ml/min; Glucose 59 mg/dL (74-106); Potassium 5.3 mmol/L (3.5-5.1); Sodium Level 136 mmol/L (136-145)
[2018-04-14 23:00] VITALS: PULSE 93
[2018-04-14 23:40] LABS: Bedside Glucose 47 mg/dL (70-110)
[2018-04-14 23:40] LABS: Bedside Glucose 70 mg/dL (70-110)
[2018-04-15] VITALS (14 sets, daily range): BP systolic 94–117; BP diastolic 40–49; PULSE 77–110; RESP 16–18; TEMP 36.4–37.5; O2SAT 93–99
[2018-04-15] MEDS: Acetaminophen 325 MG Tablet 650 MG PO ×2 (00:33→07:36)
[2018-04-15 02:56] LABS: Bedside Glucose 102 mg/dL (70-110)
[2018-04-15] MEDS: Levothyroxine 137 MCG Tablet PO (05:34)
[2018-04-15 06:25] LABS: Absolute Lymphocyte Count 0.64 X10^3/ul (0.83-4.51); Absolute Neutrophil Count 6.9 X10^3/uL (2.0-7.7); Basophil# 0.02 X10^3/uL; Basophil% 0.2 % (0-1); Eosinophil# 0.06 X10^3/uL; Eosinophils% 0.7 % (0-5); Hematocrit 26.4 % (37-47); Hemoglobin 8.9 g/dl (12.0-15.0); Lymphocyte # 0.64 X10^3/ul (4.0); Lymphocyte % 7.6 % (19-41); Mean Corp Hgb Conc 33.7 g/gl (32-36); Mean Platelet Vol. 9.8 fl (6.2-12.0); Monocyte# 0.77 X10^3/uL; Monocyte% 9.1 % (0-10); Platelet Count 225 K/mm3 (150-450); RBC Distribution Width CV 14.2 % (11.6-14.6); RBC Distribution Width SD 46.9 fl (35.1-43.9); Red Blood Count 2.78 M/mm3 (4.2-5.4); White Blood Count 8.4 K/mm3 (4.4-11.0)
[2018-04-15 06:37] LABS: POSITIVE COUNT NO; POSITIVE DIFFERENTIAL NO; POSITIVE MORPHOLOGY NO
[2018-04-15 06:52] LABS: Phosphorus 6.6 mg/dL (2.5-4.9)
[2018-04-15 07:05] LABS: Bedside Glucose 63 mg/dL (70-110)
[2018-04-15 07:05] LABS: ALB/GLOB Ratio 0.6 RATIO (0.9-2.4); AST(SGOT) 28 U/L (15-37); Alanine Aminotransfer ALT/SGPT 16 U/L (13-56); Albumin, Serum 2.3 g/dL (3.2-5.0); Alkaline Phosphatase 73 U/L (45-117); Anion Gap 17 (5-15); BUN 162 mg/dL (7-18); BUN/Creat Ratio 25.6 RATIO (10-20); Calcium,Total 8.6 mg/dL (8.5-10.1); Chloride 109 mmol/L (98-107); Creatinine, Serum 6.34 mg/dL (0.55-1.02); EST Glomerular Filtration Rate 7 mL/min (>60); Est Glom Filt Rate - Afr Amer 8 mL/min (>60); Estimated Creatinine Clearance 5.07 ml/min; Globulin 3.8 g/dL (2.2-4.2); Glucose 62 mg/dL (74-106); Potassium 4.4 mmol/L (3.5-5.1); Protein, Total 6.1 g/dL (6.4-8.2); Sodium Level 138 mmol/L (136-145)
--- NOTE | 2018-04-15 08:44 | PCM.PN.REN ---
Subjective: complains of pain in heels from wrapping. Denies shortness of breath. +nausea but no vomiting. +anorexia - Physical Exam General: Alert, Oriented x3, Cooperative, - - mild discomfort from foot/heel pain Oral: Dry Mucosa Neck: Supple Lungs: Clear to auscultation Cardiovascular: Irregular Rate Abdomen: Bowel Sounds Present, Soft, Non Tender, Non-Distended, Obese Extremities: Edema - mild BLE Skin: - - erythema of legs bilat Musculoskeletal: - - muscle weakness Neurological: - - no tremors Psych/Mental Status: Normal Affect, Appropriate, Alert and oriented to time, place, person, mood and affect Vital Signs Temp Pulse Resp BP Pulse Ox 98.2 F 83 18 100/49 L 95 04/15/18 02:30 04/15/18 07:00 04/15/18 05:31 04/15/18 05:31 04/15/18 05:31 Oxygen Delivery Method Room Air Weight: 84.3 kg Body Mass Index (BMI) 35.1 Finger Stick Blood Glucose 119 Intake and Output for Last 24 Hours 04/13/18 04/14/18 04/15/18 23:59 23:59 23:59 Intake Total 254 / 254 1002 / 1002 Output Total 225 / 225 450 / 450 Balance 552 / 552 Laboratory Tests Past 24 Hrs 04/14/18 04/14/18 04/14/18 16:19 16:19 16:19 WBC 10.7 RBC 3.16 L Hgb 10.2 L Hct 30.3 L MCV 95.9 MCH 32.3 H MCHC 33.7 RDW 14.2 RDW Differential 47.2 H Plt Count 240 MPV 9.6 Immature Gran % (Auto) 0.400 Neut % (Auto) 96.3 H Lymph % (Auto) 2.3 L Early % (Auto) 0.7 Eos % (Auto) 0.2 Baso % (Auto) 0.1 Absolute Neuts (auto) 10.3 H Absolute Lymphs (auto) 0.24 L Total Counted Not Reportable Differential Comment SEE COMMENT Platelet Estimate ADEQUATE Anisocytosis RARE Macrocytosis RARE PT 18.1 H INR 1.5 Specimen Type Sample Site pH Bicarbonate Actual POC Total CO2 Base Excess O2 Saturation ABG pCO2 ABG pO2 Jeremiah Test O2 Delivery Device Blood Gas Notified Whom Blood Gas Notified Time Sodium Cancelled Potassium Cancelled Chloride Cancelled Carbon Dioxide Cancelled Anion Gap Cancelled BUN Cancelled Creatinine Cancelled Estim Creat Clear Calc Cancelled Est GFR (MDRD) Af Amer Cancelled Est GFR (MDRD) Non-Af Cancelled BUN/Creatinine Ratio Cancelled Glucose Cancelled Lactic Acid Calcium Cancelled Phosphorus Cancelled Total Bilirubin Cancelled AST Cancelled ALT Cancelled Alkaline Phosphatase Cancelled Total Protein Cancelled Albumin Cancelled Globulin Cancelled Albumin/Globulin Ratio Cancelled Urine Color Urine Clarity Urine pH Ur Specific [place] Urine Protein Urine Glucose (UA) Urine Ketones Urine Occult Blood Urine Nitrite Urine Bilirubin Urine Urobilinogen Ur Leukocyte Esterase Urine RBC Urine WBC Ur Squamous Epith Cells Urine Bacteria Urine Mucus U Random Total Protein Ur Random Sodium Urine Creatinine Urine Potassium 04/14/18 04/14/18 04/14/18 16:19 17:20 17:20 WBC RBC Hgb Hct MCV MCH MCHC RDW RDW Differential Plt Count MPV Immature Gran % (Auto) Neut % (Auto) Lymph % (Auto) Early % (Auto) Eos % (Auto) Baso % (Auto) Absolute Neuts (auto) Absolute Lymphs (auto) Total Counted Differential Comment Platelet Estimate Anisocytosis Macrocytosis PT INR Specimen Type Sample Site pH Bicarbonate Actual POC Total CO2 Base Excess O2 Saturation ABG pCO2 ABG pO2 Jeremiah Test O2 Delivery Device Blood Gas Notified Whom Blood Gas Notified Time Sodium Potassium Chloride Carbon Dioxide Anion Gap BUN Creatinine Estim Creat Clear Calc Est GFR (MDRD) Af Amer Est GFR (MDRD) Non-Af BUN/Creatinine Ratio Glucose Lactic Acid Cancelled Calcium Phosphorus Total Bilirubin AST ALT Alkaline Phosphatase Total Protein Albumin Globulin Albumin/Globulin Ratio Urine Color Yellow Urine Clarity Cloudy Urine pH 5.0 Ur Specific [place] 1.020 Urine Protein 100 H Urine Glucose (UA) Normal Urine Ketones Negative Urine Occult Blood 250 H Urine Nitrite Negative Urine Bilirubin Negative Urine Urobilinogen Normal Ur Leukocyte Esterase 500 H Urine RBC 0 SEEN Urine WBC >100 SEEN Ur Squamous Epith Cells 0 SEEN Urine Bacteria 1+ Urine Mucus 0 SEEN U Random Total Protein Ur Random Sodium Urine Creatinine 155.00 Urine Potassium 04/14/18 04/14/18 04/14/18 17:20 17:20 17:20 WBC RBC Hgb Hct MCV MCH MCHC RDW RDW Differential Plt Count MPV Immature Gran % (Auto) Neut % (Auto) Lymph % (Auto) Early % (Auto) Eos % (Auto) Baso % (Auto) Absolute Neuts (auto) Absolute Lymphs (auto) Total Counted Differential Comment Platelet Estimate Anisocytosis Macrocytosis PT INR Specimen Type Sample Site pH Bicarbonate Actual POC Total CO2 Base Excess O2 Saturation ABG pCO2 ABG pO2 Jeremiah Test O2 Delivery Device Blood Gas Notified Whom Blood Gas Notified Time Sodium Potassium Chloride Carbon Dioxide Anion Gap BUN Creatinine Estim Creat Clear Calc Est GFR (MDRD) Af Amer Est GFR (MDRD) Non-Af BUN/Creatinine Ratio Glucose Lactic Acid Calcium Phosphorus Total Bilirubin AST ALT Alkaline Phosphatase Total Protein Albumin Globulin Albumin/Globulin Ratio Urine Color Urine Clarity Urine pH Ur Specific [place] Urine Protein Urine Glucose (UA) Urine Ketones Urine Occult Blood Urine Nitrite Urine Bilirubin Urine Urobilinogen Ur Leukocyte Esterase Urine RBC Urine WBC Ur Squamous Epith Cells Urine Bacteria Urine Mucus U Random Total Protein 97.9 H Ur Random Sodium 16 Urine Creatinine Urine Potassium 30.0 04/14/18 04/14/18 04/14/18 18:20 18:20 20:51 WBC RBC Hgb Hct MCV MCH MCHC RDW RDW Differential Plt Count MPV Immature Gran % (Auto) Neut % (Auto) Lymph % (Auto) Early % (Auto) Eos % (Auto) Baso % (Auto) Absolute Neuts (auto) Absolute Lymphs (auto) Total Counted Differential Comment Platelet Estimate Anisocytosis Macrocytosis PT INR Specimen Type ART Sample Site L Radial pH 7.17 L* Bicarbonate Actual 7.5 L POC Total CO2 8 Base Excess -21 L O2 Saturation 96 ABG pCO2 20.3 L ABG pO2 96 Jeremiah Test POS O2 Delivery Device Room Air Blood Gas Notified Whom [facility] Blood Gas Notified Time 2044 Sodium 134 L Potassium 5.8 H Chloride 107 Carbon Dioxide 9.0 L* Anion Gap 18 H BUN 173 H* Creatinine 7.17 H Estim Creat Clear Calc 4.49 Est GFR (MDRD) Af Amer 7 L Est GFR (MDRD) Non-Af 6 L BUN/Creatinine Ratio 24.1 H Glucose 91 Lactic Acid 1.0 Calcium 8.7 Phosphorus Total Bilirubin 0.30 AST 30 ALT 18 Alkaline Phosphatase 81 Total Protein 7.0 Albumin 2.6 L Globulin 4.4 H Albumin/Globulin Ratio 0.6 L Urine Color Urine Clarity Urine pH Ur Specific [place] Urine Protein Urine Glucose (UA) Urine Ketones Urine Occult Blood Urine Nitrite Urine Bilirubin Urine Urobilinogen Ur Leukocyte Esterase Urine RBC Urine WBC Ur Squamous Epith Cells Urine Bacteria Urine Mucus U Random Total Protein Ur Random Sodium Urine Creatinine Urine Potassium 04/14/18 04/15/18 04/15/18 21:50 05:40 05:40 WBC 8.4 RBC 2.78 L Hgb 8.9 L Hct 26.4 L MCV 95.0 MCH 32.0 MCHC 33.7 RDW 14.2 RDW Differential 46.9 H Plt Count 225 MPV 9.8 Immature Gran % (Auto) 0.400 Neut % (Auto) 82.0 H Lymph % (Auto) 7.6 L Early % (Auto) 9.1 Eos % (Auto) 0.7 Baso % (Auto) 0.2 Absolute Neuts (auto) 6.9 Absolute Lymphs (auto) 0.64 L Total Counted Not Reportable Differential Comment Platelet Estimate Anisocytosis Macrocytosis PT INR Specimen Type Sample Site pH Bicarbonate Actual POC Total CO2 Base Excess O2 Saturation ABG pCO2 ABG pO2 Jeremiah Test O2 Delivery Device Blood Gas Notified Whom Blood Gas Notified Time Sodium 136 138 Potassium 5.3 H 4.4 Chloride 111 H 109 H Carbon Dioxide 8.0 L* 12.0 L Anion Gap 17 H 17 H BUN 171 H* 162 H* Creatinine 6.93 H 6.34 H Estim Creat Clear Calc 4.64 5.07 Est GFR (MDRD) Af Amer 7 L 8 L Est GFR (MDRD) Non-Af 6 L 7 L BUN/Creatinine Ratio 24.7 H 25.6 H Glucose 59 L 62 L Lactic Acid Calcium 8.4 L 8.6 Phosphorus Total Bilirubin 0.20 AST 28 ALT 16 Alkaline Phosphatase 73 Total Protein 6.1 L Albumin 2.3 L Globulin 3.8 Albumin/Globulin Ratio 0.6 L Urine Color Urine Clarity Urine pH Ur Specific [place] Urine Protein Urine Glucose (UA) Urine Ketones Urine Occult Blood Urine Nitrite Urine Bilirubin Urine Urobilinogen Ur Leukocyte Esterase Urine RBC Urine WBC Ur Squamous Epith Cells Urine Bacteria Urine Mucus U Random Total Protein Ur Random Sodium Urine Creatinine Urine Potassium 04/15/18 05:40 WBC RBC Hgb Hct MCV MCH MCHC RDW RDW Differential Plt Count MPV Immature Gran % (Auto) Neut % (Auto) Lymph % (Auto) Early % (Auto) Eos % (Auto) Baso % (Auto) Absolute Neuts (auto) Absolute Lymphs (auto) Total Counted Differential Comment Platelet Estimate Anisocytosis Macrocytosis PT INR Specimen Type Sample Site pH Bicarbonate Actual POC Total CO2 Base Excess O2 Saturation ABG pCO2 ABG pO2 Jeremiah Test O2 Delivery Device Blood Gas Notified Whom Blood Gas Notified Time Sodium Potassium Chloride Carbon Dioxide Anion Gap BUN Creatinine Estim Creat Clear Calc Est GFR (MDRD) Af Amer Est GFR (MDRD) Non-Af BUN/Creatinine Ratio Glucose Lactic Acid Calcium Phosphorus 6.6 H Total Bilirubin AST ALT Alkaline Phosphatase Total Protein Albumin Globulin Albumin/Globulin Ratio Urine Color Urine Clarity Urine pH Ur Specific [place] Urine Protein Urine Glucose (UA) Urine Ketones Urine Occult Blood Urine Nitrite Urine Bilirubin Urine Urobilinogen Ur Leukocyte Esterase Urine RBC Urine WBC Ur Squamous Epith Cells Urine Bacteria Urine Mucus U Random Total Protein Ur Random Sodium Urine Creatinine Urine Potassium POC Glucose 04/15/18 04/15/18 04/14/18 06:59 02:44 23:30 POC Glucose 63 L 102 70 04/14/18 04/14/18 22:55 17:25 POC Glucose 47 L 93 Medical Necessity - Tobacco Use Smoking Status: Never smoker Assessment/Plan 1. Acute kidney injury due to dehydration, hypotension, possible acute tubular necrosis from shock. FENA <1%. Remain off losartan and Lasix. Pt does not want dialysis. Creatinine improved some today with hydration iv. 2. Sepsis syndrome without leukocytosis or fever. Check urine C/S. BP stable. 3. Acute hyperkalemia due to metabolic acidosis, acute renal failure improved. continue bicarb drip 4. History of nephrolithiasis with obstructive stone on the left kidney back in June 2017. CT of the abdomen without obstructive stone in the right kidney. 5. UTI check urine C/S. IV antibiotic therapy per primary service, renal dosed 6. Chronic atrial fibrillation with rate control 7. Acute epistaxis due to Eliquis and renal failure. Hold Eliquis for now. 8. Hypertension with low blood pressures hold all blood pressure medications for now. 9. Diabetes mellitus type 2 with stable blood sugar. 10 anemia hgb 8.9g monitor
[2018-04-15] MEDS: 0.9% NaCl Peripheral Flush Adult/Peds IV (10:01)
--- NOTE | 2018-04-15 12:08 | PCM.PN.HOSP ---
Subjective: Patient was seen and examined. Complains of severe pain in both legs. She denied chest pain, dizziness, palpitations, nausea or diarrhea. ROS is negative. Vitals/I&O's: Vital Signs Temp Pulse Resp BP Pulse Ox 98.6 F 80 18 97/43 L 94 04/15/18 08:30 04/15/18 11:00 04/15/18 08:30 04/15/18 08:30 04/15/18 11:03 Oxygen Delivery Method Room Air Weight: 84.3 kg Body Mass Index (BMI) 35.1 Finger Stick Blood Glucose 119 Intake and Output for Last 24 Hours 04/13/18 04/14/18 04/15/18 23:59 23:59 23:59 Intake Total 254 / 254 1747 / 1747 Output Total 225 / 225 750 / 750 Balance 997 / 997 General: Alert, Oriented x3, Cooperative, No apparent distress HEENT: Atraumatic, PERRLA, EOMI, Normocephalic Oral: Moist Mucosa Neck: Supple, No JVD, Negative Carotid Bruits Lungs: Normal air movement, Diminished Cardiovascular: Regular rate, Regular Rhythm, Normal S1, Normal S2, Tachycardic Abdomen: Bowel Sounds Present, Soft, Non Tender, Non-Distended, No Hepato-splenomegaly Extremities: Edema - +2-3, TAYLOR-wrap to both legs. Skin: No rashes, No breakdown Musculoskeletal: No Tenderness to Palpation of Joints or Extremities Lymphatic: No Cervical, Supraclavicular, or Inguinal Adenopathy Neurological: Cranial nerves II-XII grossly intact, Neuro grossly intact, - - No flapping tremors. Psych/Mental Status: Normal Affect, Appropriate Laboratory Results 04/14/18 16:19: WBC 10.7, RBC 3.16 L, Hgb 10.2 L, Hct 30.3 L, MCV 95.9, MCH 32.3 H, MCHC 33.7, RDW 14.2, RDW Differential 47.2 H, Plt Count 240, MPV 9.6, Immature Gran % (Auto) 0.400, Neut % (Auto) 96.3 H, Lymph % (Auto) 2.3 L, [place] % (Auto) 0.7, Eos % (Auto) 0.2, Baso % (Auto) 0.1, Absolute Neuts (auto) 10.3 H, Absolute Lymphs (auto) 0.24 L, Total Counted Not Reportable, Differential Comment SEE COMMENT, Platelet Estimate ADEQUATE, Anisocytosis RARE, Macrocytosis RARE 04/14/18 16:19: Sodium Cancelled, Potassium Cancelled, Chloride Cancelled, Carbon Dioxide Cancelled, Anion Gap Cancelled, BUN Cancelled, Creatinine Cancelled, Estim Creat Clear Calc Cancelled, Est GFR (MDRD) Af Amer Cancelled, Est GFR (MDRD) Non-Af Cancelled, BUN/Creatinine Ratio Cancelled, Glucose Cancelled, Calcium Cancelled, Phosphorus Cancelled, Total Bilirubin Cancelled, AST Cancelled, ALT Cancelled, Alkaline Phosphatase Cancelled, Total Protein Cancelled, Albumin Cancelled, Globulin Cancelled, Albumin/Globulin Ratio Cancelled 04/14/18 16:19: PT 18.1 H, INR 1.5 04/14/18 16:19: Lactic Acid Cancelled 04/14/18 17:20: Urine Color Yellow, Urine Clarity Cloudy, Urine pH 5.0, Ur Specific [place] 1.020, Urine Protein 100 H, Urine Glucose (UA) Normal, Urine Ketones Negative, Urine Occult Blood 250 H, Urine Nitrite Negative, Urine Bilirubin Negative, Urine Urobilinogen Normal, Ur Leukocyte Esterase 500 H, Urine RBC 0 SEEN, Urine WBC >100 SEEN, Ur Squamous Epith Cells 0 SEEN, Urine Bacteria 1+, Urine Mucus 0 SEEN 04/14/18 17:20: Urine Creatinine 155.00 04/14/18 17:20: U Random Total Protein 97.9 H 04/14/18 17:20: Urine Potassium 30.0 04/14/18 17:20: Ur Random Sodium 16 04/14/18 17:25: POC Glucose 93 04/14/18 18:20: Lactic Acid 1.0 04/14/18 18:20: Sodium 134 L, Potassium 5.8 H, Chloride 107, Carbon Dioxide 9.0 L*, Anion Gap 18 H, BUN 173 H*, Creatinine 7.17 H, Estim Creat Clear Calc 4.49, Est GFR (MDRD) Af Amer 7 L, Est GFR (MDRD) Non-Af 6 L, BUN/Creatinine Ratio 24.1 H, Glucose 91, Calcium 8.7, Total Bilirubin 0.30, AST 30, ALT 18, Alkaline Phosphatase 81, Total Protein 7.0, Albumin 2.6 L, Globulin 4.4 H, Albumin/Globulin Ratio 0.6 L 04/14/18 20:51: Specimen Type ART, Sample Site L Radial, pH 7.17 L*, Bicarbonate Actual 7.5 L, POC Total CO2 8, Base Excess -21 L, O2 Saturation 96, ABG pCO2 20.3 L, ABG pO2 96, Jeremiah Test POS, O2 Delivery Device Room Air, Blood Gas Notified Whom [facility], Blood Gas Notified Time 204404/14/18 21:50: Sodium 136, Potassium 5.3 H, Chloride 111 H, Carbon Dioxide 8.0 L*, Anion Gap 17 H, BUN 171 H*, Creatinine 6.93 H, Estim Creat Clear Calc 4.64, Est GFR (MDRD) Af Amer 7 L, Est GFR (MDRD) Non-Af 6 L, BUN/Creatinine Ratio 24.7 H, Glucose 59 L, Calcium 8.4 L 04/14/18 22:55: POC Glucose 47 L 04/14/18 23:30: POC Glucose 70 04/15/18 02:44: POC Glucose 102 04/15/18 05:40: WBC 8.4, RBC 2.78 L, Hgb 8.9 L, Hct 26.4 L, MCV 95.0, MCH 32.0, MCHC 33.7, RDW 14.2, RDW Differential 46.9 H, Plt Count 225, MPV 9.8, Immature Gran % (Auto) 0.400, Neut % (Auto) 82.0 H, Lymph % (Auto) 7.6 L, [place] % (Auto) 9.1, Eos % (Auto) 0.7, Baso % (Auto) 0.2, Absolute Neuts (auto) 6.9, Absolute Lymphs (auto) 0.64 L, Total Counted Not Reportable 04/15/18 05:40: Sodium 138, Potassium 4.4, Chloride 109 H, Carbon Dioxide 12.0 L, Anion Gap 17 H, BUN 162 H*, Creatinine 6.34 H, Estim Creat Clear Calc 5.07, Est GFR (MDRD) Af Amer 8 L, Est GFR (MDRD) Non-Af 7 L, BUN/Creatinine Ratio 25.6 H, Glucose 62 L, Calcium 8.6, Total Bilirubin 0.20, AST 28, ALT 16, Alkaline Phosphatase 73, Total Protein 6.1 L, Albumin 2.3 L, Globulin 3.8, Albumin/Globulin Ratio 0.6 L 04/15/18 05:40: Phosphorus 6.6 H 04/15/18 06:59: POC Glucose 63 L Current Medications Acetaminophen (Tylenol) 650 mg PO Q6H PRN PRN PRN Reason: Fever, headache, pain Last Admin: 04/15/18 07:36 Dose: 650 mg Aspirin (Aspirin, Baby) 81 mg PO DAILY@0800 [facility] Last Admin: 04/15/18 08:35 Dose: Not Given Atorvastatin Calcium (Lipitor) 10 mg PO QHS [facility] Last Admin: 04/14/18 22:53 Dose: Not Given Ferrous Sulfate (Ferrous Sulfate) 325 mg PO 1200,1700 [facility] Heparin Sodium (Porcine) (Heparin Na) 5,000 unit SC BID [facility] Last Admin: 04/15/18 08:34 Dose: Not Given Pantoprazole Sodium 40 mg/ (Sodium Chloride) 110 mls @ 330 mls/hr IV Q24 [facility] Last Admin: 04/15/18 09:56 Dose: 330 mls/hr Meropenem 1 gm/ Sodium (Chloride) 120 mls @ 33 mls/hr IV Q24@2200 [facility] Last Admin: 04/14/18 22:49 Dose: 33 mls/hr Sodium Bicarbonate 150 meq/ (Dextrose) 1,150 mls @ 100 mls/hr IV .[id number] [facility] Last Admin: 04/15/18 09:55 Dose: 100 mls/hr Insulin Human Lispro (Humalog Kwikpen (Bkc)) 0 unit SC ACHS [facility]; Protocol Last Admin: 04/15/18 11:53 Dose: Not Given Levothyroxine Sodium (Synthroid) 137 mcg PO DAILY@0600 [facility] Last Admin: 04/15/18 05:34 Dose: 137 mcg Magnesium Hydroxide (Milk Of Magnesia) 30 ml PO DAILY PRN PRN PRN Reason: Constipation Ondansetron HCl (Zofran) 4 mg IV Q6H PRN PRN PRN Reason: NAUSEA/VOMITING Last Admin: 04/14/18 14:40 Dose: 4 mg Sodium Chloride () 5 - 15 ml IV UD PRN PRN Reason: SALINE FLUSH Last Admin: 04/15/18 10:01 Dose: 10 ml Medical Necessity - Tobacco Use Smoking Status: Never smoker Assessment/Plan 83 year-old female with PMHx of hypertension, hyperlipidemia, morbid obesity, chronic venous stasis admitted with abnormal blood work. She had gone to her PCP with nosebleed and blood work was done that wa abnormal and patient was sent here with acute renal failure, metabolic acidosis and hyperkalemia. 1. RUBINA on CKD stage 4, secondary to dehydration/hypotension/acute tubular necrosis, slightly improved, patient appears fluid overloaded Off Losartan, lasix, Floor Supervisor consulted, 2D-echo is pending, will monitor I & Os, trend labs 2. Hyperkalemia, resolved, will continue trend labs. 3. 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 Suspected GNR UTI, on meropenem, will follow sensitivities. 5. Hypertension, controlled, off Losartan, will continue to monitor. 6. Type 2 DM, BS is running, will continue with accucheks and ISS. 7. Chronic iron deficiency anemia, on po iron 8. Hyperlipidemia, on statin 9. Hypothyroidism, on levothyroxine 10. DVT PPx- Heparin SC 11. Code status - full code. Code Visit Inpatient E&M: 15411 Subs Hosp L2
--- NOTE | 2018-04-15 12:13 | PN_ITS ---
Subjective: Patient was seen and examined. Complains of severe pain in both legs. She denied chest pain, dizziness, palpitations, nausea or diarrhea. ROS is negative. Vitals/I&O's: Vital Signs Temp Pulse Resp BP Pulse Ox 98.6 F 80 18 97/43 L 94 04/15/18 08:30 04/15/18 11:00 04/15/18 08:30 04/15/18 08:30 04/15/18 11:03 Oxygen Delivery Method Room Air Weight: 84.3 kg Body Mass Index (BMI) 35.1 Finger Stick Blood Glucose 119 Intake and Output for Last 24 Hours 04/13/18 04/14/18 04/15/18 23:59 23:59 23:59 Intake Total 254 / 254 1747 / 1747 Output Total 225 / 225 750 / 750 Balance 997 / 997 General: Alert, Oriented x3, Cooperative, No apparent distress HEENT: Atraumatic, PERRLA, EOMI, Normocephalic Oral: Moist Mucosa Neck: Supple, No JVD, Negative Carotid Bruits Lungs: Normal air movement, Diminished Cardiovascular: Regular rate, Regular Rhythm, Normal S1, Normal S2, Tachycardic Abdomen: Bowel Sounds Present, Soft, Non Tender, Non-Distended, No Hepato- splenomegaly Extremities: Edema - +2-3, TAYLOR-wrap to both legs. Skin: No rashes, No breakdown Musculoskeletal: No Tenderness to Palpation of Joints or Extremities Lymphatic: No Cervical, Supraclavicular, or Inguinal Adenopathy Neurological: Cranial nerves II-XII grossly intact, Neuro grossly intact, - - No flapping tremors. Psych/Mental Status: Normal Affect, Appropriate Laboratory Results 04/14/18 16:19: WBC 10.7, RBC 3.16 L, Hgb 10.2 L, Hct 30.3 L, MCV 95.9, MCH 32.3 H, MCHC 33.7, RDW 14.2, RDW Differential 47.2 H, Plt Count 240, MPV 9.6, Immature Gran % (Auto) 0.400, Neut % (Auto) 96.3 H, Lymph % (Auto) 2.3 L, Whiteside % (Auto) 0.7, Eos % (Auto) 0.2, Baso % (Auto) 0.1, Absolute Neuts (auto) 10.3 H, Absolute Lymphs (auto) 0.24 L, Total Counted Not Reportable, Differential Comment SEE COMMENT, Platelet Estimate ADEQUATE, Anisocytosis RARE, Macrocytosis RARE 04/14/18 16:19: Sodium Cancelled, Potassium Cancelled, Chloride Cancelled, Carbon Dioxide Cancelled, Anion Gap Cancelled, BUN Cancelled, Creatinine Cancelled, Estim Creat Clear Calc Cancelled, Est GFR (MDRD) Af Amer Cancelled, Est GFR (MDRD) Non-Af Cancelled, BUN/Creatinine Ratio Cancelled, Glucose Cancelled, Calcium Cancelled, Phosphorus Cancelled, Total Bilirubin Cancelled, AST Cancelled, ALT Cancelled, Alkaline Phosphatase Cancelled, Total Protein Cancelled, Albumin Cancelled, Globulin Cancelled, Albumin/Globulin Ratio Cancelled 04/14/18 16:19: PT 18.1 H, INR 1.5 04/14/18 16:19: Lactic Acid Cancelled 04/14/18 17:20: Urine Color Yellow, Urine Clarity Cloudy, Urine pH 5.0, Ur Specific [place] 1.020, Urine Protein 100 H, Urine Glucose (UA) Normal, Urine Ketones Negative, Urine Occult Blood 250 H, Urine Nitrite Negative, Urine Bilirubin Negative, Urine Urobilinogen Normal, Ur Leukocyte Esterase 500 H, Urine RBC 0 SEEN, Urine WBC >100 SEEN, Ur Squamous Epith Cells 0 SEEN, Urine Bacteria 1+, Urine Mucus 0 SEEN 04/14/18 17:20: Urine Creatinine 155.00 04/14/18 17:20: U Random Total Protein 97.9 H 04/14/18 17:20: Urine Potassium 30.0 04/14/18 17:20: Ur Random Sodium 16 04/14/18 17:25: POC Glucose 93 04/14/18 18:20: Lactic Acid 1.0 04/14/18 18:20: Sodium 134 L, Potassium 5.8 H, Chloride 107, Carbon Dioxide 9.0 L*, Anion Gap 18 H, BUN 173 H*, Creatinine 7.17 H, Estim Creat Clear Calc 4.49, Est GFR (MDRD) Af Amer 7 L, Est GFR (MDRD) Non-Af 6 L, BUN/Creatinine Ratio 24.1 H, Glucose 91, Calcium 8.7, Total Bilirubin 0.30, AST 30, ALT 18, Alkaline Phosphatase 81, Total Protein 7.0, Albumin 2.6 L, Globulin 4.4 H, Albumin/Globulin Ratio 0.6 L 04/14/18 20:51: Specimen Type ART, Sample Site L Radial, pH 7.17 L*, Bicarbonate Actual 7.5 L, POC Total CO2 8, Base Excess -21 L, O2 Saturation 96, ABG pCO2 20.3 L, ABG pO2 96, Jeremiah Test POS, O2 Delivery Device Room Air, Blood Gas Notified Whom ASHA SINCLAIR, Blood Gas Notified Time 204404/14/18 21:50: Sodium 136, Potassium 5.3 H, Chloride 111 H, Carbon Dioxide 8.0 L*, Anion Gap 17 H, BUN 171 H*, Creatinine 6.93 H, Estim Creat Clear Calc 4.64, Est GFR (MDRD) Af Amer 7 L, Est GFR (MDRD) Non-Af 6 L, BUN/Creatinine Ratio 24.7 H, Glucose 59 L, Calcium 8.4 L 04/14/18 22:55: POC Glucose 47 L 04/14/18 23:30: POC Glucose 70 04/15/18 02:44: POC Glucose 102 04/15/18 05:40: WBC 8.4, RBC 2.78 L, Hgb 8.9 L, Hct 26.4 L, MCV 95.0, MCH 32.0, MCHC 33.7, RDW 14.2, RDW Differential 46.9 H, Plt Count 225, MPV 9.8, Immature Gran % (Auto) 0.400, Neut % (Auto) 82.0 H, Lymph % (Auto) 7.6 L, Whiteside % (Auto) 9.1, Eos % (Auto) 0.7, Baso % (Auto) 0.2, Absolute Neuts (auto) 6.9, Absolute Lymphs (auto) 0.64 L, Total Counted Not Reportable 04/15/18 05:40: Sodium 138, Potassium 4.4, Chloride 109 H, Carbon Dioxide 12.0 L , Anion Gap 17 H, BUN 162 H*, Creatinine 6.34 H, Estim Creat Clear Calc 5.07, Est GFR (MDRD) Af Amer 8 L, Est GFR (MDRD) Non-Af 7 L, BUN/Creatinine Ratio 25.6 H, Glucose 62 L, Calcium 8.6, Total Bilirubin 0.20, AST 28, ALT 16, Alkaline Phosphatase 73, Total Protein 6.1 L, Albumin 2.3 L, Globulin 3.8, Albumin/Globulin Ratio 0.6 L 04/15/18 05:40: Phosphorus 6.6 H 04/15/18 06:59: POC Glucose 63 L Current Medications Acetaminophen (Tylenol) 650 mg PO Q6H PRN PRN PRN Reason: Fever, headache, pain Last Admin: 04/15/18 07:36 Dose: 650 mg Aspirin (Aspirin, Baby) 81 mg PO DAILY@0800 [facility] Last Admin: 04/15/18 08:35 Dose: Not Given Atorvastatin Calcium (Lipitor) 10 mg PO QHS [facility] Last Admin: 04/14/18 22:53 Dose: Not Given Ferrous Sulfate (Ferrous Sulfate) 325 mg PO 1200,1700 [facility] Heparin Sodium (Porcine) (Heparin Na) 5,000 unit SC BID [facility] Last Admin: 04/15/18 08:34 Dose: Not Given Pantoprazole Sodium 40 mg/ (Sodium Chloride) 110 mls @ 330 mls/hr IV Q24 [facility] Last Admin: 04/15/18 09:56 Dose: 330 mls/hr Meropenem 1 gm/ Sodium (Chloride) 120 mls @ 33 mls/hr IV Q24@2200 [facility] Last Admin: 04/14/18 22:49 Dose: 33 mls/hr Sodium Bicarbonate 150 meq/ (Dextrose) 1,150 mls @ 100 mls/hr IV .[id number] [facility] Last Admin: 04/15/18 09:55 Dose: 100 mls/hr Insulin Human Lispro (Humalog Kwikpen (Bkc)) 0 unit SC ACHS [facility]; Protocol Last Admin: 04/15/18 11:53 Dose: Not Given Levothyroxine Sodium (Synthroid) 137 mcg PO DAILY@0600 [facility] Last Admin: 04/15/18 05:34 Dose: 137 mcg Magnesium Hydroxide (Milk Of Magnesia) 30 ml PO DAILY PRN PRN PRN Reason: Constipation Ondansetron HCl (Zofran) 4 mg IV Q6H PRN PRN PRN Reason: NAUSEA/VOMITING Last Admin: 04/14/18 14:40 Dose: 4 mg Sodium Chloride () 5 - 15 ml IV UD PRN PRN Reason: SALINE FLUSH Last Admin: 04/15/18 10:01 Dose: 10 ml Medical Necessity - Tobacco Use Smoking Status: Never smoker Assessment/Plan 83 year-old female with PMHx of hypertension, hyperlipidemia, morbid obesity, chronic venous stasis admitted with abnormal blood work. She had gone to her PCP with nosebleed and blood work was done that wa abnormal and patient was sent here with acute renal failure, metabolic acidosis and hyperkalemia. 1. RUBINA on CKD stage 4, secondary to dehydration/hypotension/acute tubular necrosis, slightly improved, patient appears fluid overloaded Off Losartan, lasix, Research Manufacturing Operator consulted, 2D-echo is pending, will monitor I & Os, trend labs 2. Hyperkalemia, resolved, will continue trend labs. 3. Acute metabolic acidosis secondary to #1, on bicarbonate drip, improving, HCO3 today is 12, increase from 7, loan documents closer following 4. Suspected GNR UTI, on meropenem, will follow sensitivities. 5. Hypertension, controlled, off Losartan, will continue to monitor. 6. Type 2 DM, BS is running, will continue with accucheks and ISS. 7. Chronic iron deficiency anemia, on po iron 8. Hyperlipidemia, on statin 9. Hypothyroidism, on levothyroxine 10. DVT PPx- Heparin SC 11. Code status - full code. Code Visit Inpatient E&M: 80699 Subs Hosp L2
--- NOTE | 2018-04-15 13:45 | CASEMGMT ---
Assessment- SW went to patient's room to complete assessment. Patient's son was present. Patient wanted SW to ask her son the questions as she was not feeling well. Living situation- Patient lives with her son in a 1 story home. There are 2 entry steps. PCP: Dr. Lily Keller located in [place], [place] Specialists: Dr Perales- Neurology- Per son, however cannot find this physician Pharmacy: [facility] in [place] (This is one of the facilities that they are keeping open) Prescription coverage- None DME: wheeled walker, standard walker, manual wheelchair, shower chair, and grab bars ADL's/IADL's: Patient uses her walker to get around. She usually bathes herself, does some cleaning, and makes meals. Patient's son manages her medications and helps her with some dressing. Lately patient has not been feeling well at all and has not been able to do these things like normal. Past SNF/rehab: None Past HH: Yes. Did not remember agency LW: No POA: No Plan: Patient said she is going home at discharge. SW asked her if therapy and/or physician recommend she go somewhere for rehab would she be willing. She said she is going home. Not sure if home will be an option as patient is alone all day while her son works. SW told them SW will follow for d/c planning. Monica BAEZ
[2018-04-15] MEDS: Ferrous Sulfate 325 MG Tablet PO ×2 (14:00→17:20)
[2018-04-15] MEDS: Acetaminophen 500 MG Tablet 1000 MG PO ×2 (14:00→21:53)
[2018-04-15 14:31] LABS: Bedside Glucose 78 mg/dL (70-110)
--- NOTE | 2018-04-15 15:34 | NURSING ---
wound photo: BLE
--- NOTE | 2018-04-15 16:18 | CHAPLAIN ---
Type of Pastoral Visit _x__ Initial Visit ___ Follow-up Visit ___ On-call Visit ___ General Patient Visit ___ Spiritual Assessment ___ Family Conference ___ Bereavement ___ Rapid Response ___ Code Blue ___ Other (describe below) Pastoral Care Referral From ___ Patient ___ Family ___ Nurse _x__ Physician ___ Vulcanizing Press Operator ___ Developmental Psychologist ___ Other (describe below) Sacrament/Intervention _x__ Active listening ___ Anointing ___ Buddhism ___ Bereavement ___ Communion _x__ Teresa exploration ___ _x__ Life review _x__ Prayer ___ Reconciliation ___ Sacrament of Sick _x__ Supportive presence ___ Wedding ___ Other (describe below) Pastoral Comments
[2018-04-15 16:56] LABS: Bedside Glucose 122 mg/dL (70-110)
[2018-04-15] MEDS: Cefepime 1 GM in 0.9% NS 50 ML Minibag Q12 IV (17:20)
[2018-04-15 21:50] LABS: Bedside Glucose 189 mg/dL (70-110)
[2018-04-15] MEDS: Atorvastatin Calcium 10 MG Tablet PO (21:53)
[2018-04-15] MEDS: Insulin Lispro 100 UNIT/ML INSULN.PEN SC (21:55)
[2018-04-15] MEDS: Menthol/Lanolin/Calamine/Znox 113 GM Tube 1 APPLIC TOPICAL (22:09)
[2018-04-16] VITALS (16 sets, daily range): BP systolic 101–119; BP diastolic 44–57; PULSE 84–159; RESP 16–18; TEMP 36.7–37.8; O2SAT 92–96
[2018-04-16] MEDS: Levothyroxine 137 MCG Tablet PO (05:28)
[2018-04-16] MEDS: Acetaminophen 500 MG Tablet 1000 MG PO ×3 (05:28→22:20)
[2018-04-16 07:01] LABS: Bedside Glucose 169 mg/dL (70-110)
[2018-04-16 07:26] LABS: BUN 129 mg/dL (7-18); BUN/Creat Ratio 31.9 RATIO (10-20); Calcium,Total 8.2 mg/dL (8.5-10.1); Chloride 103 mmol/L (98-107); Creatinine, Serum 4.05 mg/dL (0.55-1.02); EST Glomerular Filtration Rate 11 mL/min (>60); Est Glom Filt Rate - Afr Amer 14 mL/min (>60); Estimated Creatinine Clearance 7.94 ml/min; Glucose 175 mg/dL (74-106); Phosphorus 4.5 mg/dL (2.5-4.9); Potassium 3.8 mmol/L (3.5-5.1); Sodium Level 139 mmol/L (136-145)
[2018-04-16] MEDS: Insulin Lispro 100 UNIT/ML INSULN.PEN SC ×4 (08:15→22:18)
--- NOTE | 2018-04-16 08:38 | PCM.PN.REN ---
Subjective: feeling better, nausea improved. Renal fxn continues to improve. Denies SOB. Good urine output. Discussed dialysis and what it would entail. Currently no need for dialysis since renal fxn and uremic symptoms improving. Pt son at bedside. - Physical Exam General: Alert, Oriented x3 Neck: Supple Lungs: Clear to auscultation Cardiovascular: Irregular Rate - afib, BBB on monitor Abdomen: Bowel Sounds Present, Soft, Non Tender, Non-Distended, Obese Extremities: Edema - mild Neurological: - - no tremor Psych/Mental Status: Normal Affect, Appropriate, Alert and oriented to time, place, person, mood and affect Vital Signs Temp Pulse Resp BP Pulse Ox 99.6 F H 103 H 18 106/49 L 95 04/16/18 04:08 04/16/18 07:00 04/16/18 04:08 04/16/18 04:08 04/16/18 08:11 Oxygen Delivery Method Room Air Weight: 84 kg Body Mass Index (BMI) 35.1 Finger Stick Blood Glucose 119 Intake and Output for Last 24 Hours 04/14/18 04/15/18 04/16/18 23:59 23:59 23:59 Intake Total 254 / 254 2819 / 2819 1345 / 1345 Output Total 225 / 225 1150 / 1150 675 / 675 Balance / 1669 / 1669 670 / 670 Microbiology Past 72 Hours 04/14/18 17:20 Gram Stain - Final Wound - Leg, Right Wound Culture - Preliminary Klebsiella oxytoca Gram positive organism 04/14/18 17:20 Urine Culture - Final Urine Catheter - Garcia Klebsiella pneumoniae sp pneum Laboratory Tests Past 24 Hrs 04/16/18 05:35 Sodium 139 Potassium 3.8 Chloride 103 Carbon Dioxide 24.0 BUN 129 H* Creatinine 4.05 H Estim Creat Clear Calc 7.94 Est GFR (MDRD) Af Amer 14 L Est GFR (MDRD) Non-Af 11 L BUN/Creatinine Ratio 31.9 H Glucose 175 H Calcium 8.2 L Phosphorus 4.5 Albumin 2.0 L POC Glucose 04/16/18 04/15/18 04/15/18 06:54 21:44 16:47 POC Glucose 169 H 189 H 122 H 04/15/18 11:35 POC Glucose 78 Medical Necessity - Tobacco Use Smoking Status: Never smoker Assessment/Plan 1. Acute kidney injury due to dehydration, hypotension, possible acute tubular necrosis from shock. FENA <1%. Remain off losartan and Lasix. No dialysis needed. Renal fxn continues to improve 2. Sepsis syndrome without leukocytosis or fever. BP stable. 3. Acute hyperkalemia due to metabolic acidosis, acute renal failure improved. continue bicarb drip, decreased rate to 50cc/hr 4. History of nephrolithiasis with obstructive stone on the left kidney back in June 2017. CT of the abdomen without obstructive stone in the right kidney. 5. UTI klebsiella pna IV antibiotic therapy per primary service, renal dosed 6. Chronic atrial fibrillation with rate control 7. anemia check cbc
[2018-04-16] MEDS: Menthol/Lanolin/Calamine/Znox 113 GM Tube 1 APPLIC TOPICAL ×2 (09:04→22:18)
[2018-04-16] MEDS: Pantoprazole Sodium 40 MG Tablet PO (09:05)
[2018-04-16 12:25] LABS: Bedside Glucose 249 mg/dL (70-110)
[2018-04-16] MEDS: Ferrous Sulfate 325 MG Tablet PO ×2 (13:02→17:32)
--- NOTE | 2018-04-16 15:06 | CASEMGMT ---
Addendum entered by Monica Dash 04/16/18 15:47: CHRISTINE called Merle at [facility] and made a referral. CHRISTINE faxed information. Monica BAEZ Original Note: SW spoke with patient's son. He said they agreed she would go somewhere for rehab. He said they would like [facility]. CHRISTINE told him SW will work on making a referral. Plan: [facility] pending their acceptance of patient. Monica BAEZ
--- NOTE | 2018-04-16 15:15 | PCM.PN.HOSP ---
Subjective: Patient seen and examined. She feels slightly better. Complains of irritation in vulval region. Denies fever, chills, abdominal discomfort. Objective: Physical exam: General: Alert, Oriented x3, Cooperative, No apparent distress, feeling better HEENT: Atraumatic, PERRLA, EOMI, Normocephalic Oral: Moist Mucosa Neck: Supple, No JVD, Negative Carotid Bruits Lungs: Normal air movement, Diminished Cardiovascular: Regular rate, Regular Rhythm, Normal S1, Normal S2, Tachycardic Abdomen: Bowel Sounds Present, Soft, Non Tender, Non-Distended, No Hepato-splenomegaly Extremities: Edema - +2-3, TAYLOR-wrap to both legs. Skin: No rashes, No breakdown Musculoskeletal: No Tenderness to Palpation of Joints or Extremities Lymphatic: No Cervical, Supraclavicular, or Inguinal Adenopathy Neurological: Cranial nerves II-XII grossly intact, Neuro grossly intact, - - No flapping tremors. Psych/Mental Status: Normal Affect, Appropriate Vitals/I&O's: Vital Signs Temp Pulse Resp BP Pulse Ox 98.3 F 100 18 101/46 L 92 04/16/18 10:11 04/16/18 11:00 04/16/18 10:11 04/16/18 10:11 04/16/18 10:11 Oxygen Delivery Method Room Air Weight: 84 kg Body Mass Index (BMI) 35.1 Finger Stick Blood Glucose 119 Intake and Output for Last 24 Hours 04/14/18 04/15/18 04/16/18 23:59 23:59 23:59 Intake Total 254 / 254 2819 / 2819 2241 / 2241 Output Total 225 / 225 1150 / 1150 1175 / 1175 Balance 1669 / 1669 1066 / 1066 Microbiology Past 72 Hours 04/14/18 17:20 Wound - Leg, Right Gram Stain - Final 04/14/18 17:20 Wound - Leg, Right Wound Culture - Preliminary Klebsiella oxytoca Staphylococcus aureus 04/14/18 17:20 Urine Catheter - Garcia Urine Culture - Final Klebsiella pneumoniae sp pneum Laboratory Results 04/15/18 16:47: POC Glucose 122 H 04/15/18 21:44: POC Glucose 189 H 04/16/18 05:35: Sodium 139, Potassium 3.8, Chloride 103, Carbon Dioxide 24.0, BUN 129 H*, Creatinine 4.05 H, Estim Creat Clear Calc 7.94, Est GFR (MDRD) Af Amer 14 L, Est GFR (MDRD) Non-Af 11 L, BUN/Creatinine Ratio 31.9 H, Glucose 175 H, Calcium 8.2 L, Phosphorus 4.5, Albumin 2.0 L 04/16/18 06:54: POC Glucose 169 H 04/16/18 12:11: POC Glucose 249 H Current Medications Acetaminophen (Tylenol) 1,000 mg PO TID [facility] Last Admin: 04/16/18 13:02 Dose: 1,000 mg Aspirin (Aspirin, Baby) 81 mg PO DAILY@0800 [facility] Last Admin: 04/16/18 08:18 Dose: Not Given Atorvastatin Calcium (Lipitor) 10 mg PO QHS [facility] Last Admin: 04/15/18 21:53 Dose: 10 mg Calamine/Phenol (Calmoseptine Ointment) 1 applic TOPICAL BID [facility]; Protocol Last Admin: 04/16/18 09:04 Dose: 1 applicatio Ferrous Sulfate (Ferrous Sulfate) 325 mg PO 1200,1700 [facility] Last Admin: 04/16/18 13:02 Dose: 325 mg Heparin Sodium (Porcine) (Heparin Na) 5,000 unit SC BID [facility] Last Admin: 04/16/18 08:18 Dose: Not Given Cefepime HCl 1 gm/ Sodium (Chloride) 50 mls @ 100 mls/hr IV Q24H [facility] Last Admin: 04/15/18 17:20 Dose: 100 mls/hr Sodium Bicarbonate 150 meq/ (Dextrose) 1,150 mls @ 50 mls/hr IV .Q23H [facility] Last Admin: 04/16/18 09:03 Dose: 50 mls/hr Insulin Human Lispro (Humalog Kwikpen (Bkc)) 0 unit SC ACHS [facility]; Protocol Last Admin: 04/16/18 13:02 Dose: 2 u Levothyroxine Sodium (Synthroid) 137 mcg PO DAILY@0600 [facility] Last Admin: 04/16/18 05:28 Dose: 137 mcg Magnesium Hydroxide (Milk Of Magnesia) 30 ml PO DAILY PRN PRN PRN Reason: Constipation Nystatin (Mycostatin) 1 applic TOPICAL TID [facility]; Protocol Ondansetron HCl (Zofran) 4 mg IV Q6H PRN PRN PRN Reason: NAUSEA/VOMITING Last Admin: 04/14/18 14:40 Dose: 4 mg Pantoprazole Sodium (Protonix) 40 mg PO DAILY [facility] Last Admin: 04/16/18 09:05 Dose: 40 mg Sodium Chloride () 5 - 15 ml IV UD PRN PRN Reason: SALINE FLUSH Last Admin: 04/15/18 10:01 Dose: 10 ml Medical Necessity - Tobacco Use Smoking Status: Never smoker Assessment/Plan 83 year-old female with PMHx of hypertension, hyperlipidemia, morbid obesity, chronic venous stasis admitted with abnormal blood work. She had gone to her PCP with nosebleed and blood work was done that wa abnormal and patient was sent here with acute renal failure, metabolic acidosis and hyperkalemia. 1. RUBINA on CKD stage 4, secondary to dehydration/hypotension/acute tubular necrosis, slowly improving, off Losartan and Lasix, nephrology consulted, will trend labs 2. Hyperkalemia, resolved 3. Acute metabolic acidosis secondary to #1, on bicarbonate drip, improving, HCO3 24, continue increase from 7, ldr rn following 4. Suspected Klebsiella UTI, on meropenem, will follow sensitivities. 5. Tangela, intertrigo and vulval, will use nystatin powder and Diflucan 150mg X1 6. Hypertension, controlled, off Losartan, will continue to monitor. 7. Type 2 DM, BS is running, will continue with accucheks and ISS. 8. Chronic iron deficiency anemia, on po iron 9. Hyperlipidemia, on statin 10. Hypothyroidism, on levothyroxine 11. DVT PPx- Heparin SC 11. Code status - full code. Code Visit Inpatient E&M: 84765 Subs Hosp L2
--- NOTE | 2018-04-16 15:24 | PN_ITS ---
Subjective: Patient seen and examined. She feels slightly better. Complains of irritation in vulval region. Denies fever, chills, abdominal discomfort. Objective: Physical exam: General: Alert, Oriented x3, Cooperative, No apparent distress, feeling better HEENT: Atraumatic, PERRLA, EOMI, Normocephalic Oral: Moist Mucosa Neck: Supple, No JVD, Negative Carotid Bruits Lungs: Normal air movement, Diminished Cardiovascular: Regular rate, Regular Rhythm, Normal S1, Normal S2, Tachycardic Abdomen: Bowel Sounds Present, Soft, Non Tender, Non-Distended, No Hepato- splenomegaly Extremities: Edema - +2-3, TALYOR-wrap to both legs. Skin: No rashes, No breakdown Musculoskeletal: No Tenderness to Palpation of Joints or Extremities Lymphatic: No Cervical, Supraclavicular, or Inguinal Adenopathy Neurological: Cranial nerves II-XII grossly intact, Neuro grossly intact, - - No flapping tremors. Psych/Mental Status: Normal Affect, Appropriate Vitals/I&O's: Vital Signs Temp Pulse Resp BP Pulse Ox 98.3 F 100 18 101/46 L 92 04/16/18 10:11 04/16/18 11:00 04/16/18 10:11 04/16/18 10:11 04/16/18 10:11 Oxygen Delivery Method Room Air Weight: 84 kg Body Mass Index (BMI) 35.1 Finger Stick Blood Glucose 119 Intake and Output for Last 24 Hours 04/14/18 04/15/18 04/16/18 23:59 23:59 23:59 Intake Total 254 / 254 2819 / 2819 2241 / 2241 Output Total 225 / 225 1150 / 1150 1175 / 1175 Balance 1669 / 1669 1066 / 1066 Microbiology Past 72 Hours 04/14/18 17:20 Wound - Leg, Right Gram Stain - Final 04/14/18 17:20 Wound - Leg, Right Wound Culture - Preliminary Klebsiella oxytoca Staphylococcus aureus 04/14/18 17:20 Urine Catheter - Garcia Urine Culture - Final Klebsiella pneumoniae sp pneum Laboratory Results 04/15/18 16:47: POC Glucose 122 H 04/15/18 21:44: POC Glucose 189 H 04/16/18 05:35: Sodium 139, Potassium 3.8, Chloride 103, Carbon Dioxide 24.0, BUN 129 H*, Creatinine 4.05 H, Estim Creat Clear Calc 7.94, Est GFR (MDRD) Af Amer 14 L, Est GFR (MDRD) Non-Af 11 L, BUN/Creatinine Ratio 31.9 H, Glucose 175 H, Calcium 8.2 L, Phosphorus 4.5, Albumin 2.0 L 04/16/18 06:54: POC Glucose 169 H 04/16/18 12:11: POC Glucose 249 H Current Medications Acetaminophen (Tylenol) 1,000 mg PO TID [facility] Last Admin: 04/16/18 13:02 Dose: 1,000 mg Aspirin (Aspirin, Baby) 81 mg PO DAILY@0800 [facility] Last Admin: 04/16/18 08:18 Dose: Not Given Atorvastatin Calcium (Lipitor) 10 mg PO QHS [facility] Last Admin: 04/15/18 21:53 Dose: 10 mg Calamine/Phenol (Calmoseptine Ointment) 1 applic TOPICAL BID [facility]; Protocol Last Admin: 04/16/18 09:04 Dose: 1 applicatio Ferrous Sulfate (Ferrous Sulfate) 325 mg PO 1200,1700 [facility] Last Admin: 04/16/18 13:02 Dose: 325 mg Heparin Sodium (Porcine) (Heparin Na) 5,000 unit SC BID [facility] Last Admin: 04/16/18 08:18 Dose: Not Given Cefepime HCl 1 gm/ Sodium (Chloride) 50 mls @ 100 mls/hr IV Q24H [facility] Last Admin: 04/15/18 17:20 Dose: 100 mls/hr Sodium Bicarbonate 150 meq/ (Dextrose) 1,150 mls @ 50 mls/hr IV .Q23H [facility] Last Admin: 04/16/18 09:03 Dose: 50 mls/hr Insulin Human Lispro (Humalog Kwikpen (Bkc)) 0 unit SC ACHS [facility]; Protocol Last Admin: 04/16/18 13:02 Dose: 2 u Levothyroxine Sodium (Synthroid) 137 mcg PO DAILY@0600 [facility] Last Admin: 04/16/18 05:28 Dose: 137 mcg Magnesium Hydroxide (Milk Of Magnesia) 30 ml PO DAILY PRN PRN PRN Reason: Constipation Nystatin (Mycostatin) 1 applic TOPICAL TID [facility]; Protocol Ondansetron HCl (Zofran) 4 mg IV Q6H PRN PRN PRN Reason: NAUSEA/VOMITING Last Admin: 04/14/18 14:40 Dose: 4 mg Pantoprazole Sodium (Protonix) 40 mg PO DAILY [facility] Last Admin: 04/16/18 09:05 Dose: 40 mg Sodium Chloride () 5 - 15 ml IV UD PRN PRN Reason: SALINE FLUSH Last Admin: 04/15/18 10:01 Dose: 10 ml Medical Necessity - Tobacco Use Smoking Status: Never smoker Assessment/Plan 83 year-old female with PMHx of hypertension, hyperlipidemia, morbid obesity, chronic venous stasis admitted with abnormal blood work. She had gone to her PCP with nosebleed and blood work was done that wa abnormal and patient was sent here with acute renal failure, metabolic acidosis and hyperkalemia. 1. RUBINA on CKD stage 4, secondary to dehydration/hypotension/acute tubular necrosis, slowly improving, off Losartan and Lasix, nephrology consulted, will trend labs 2. Hyperkalemia, resolved 3. Acute metabolic acidosis secondary to #1, on bicarbonate drip, improving, HCO3 24, continue increase from 7, nurse extern following 4. Suspected Klebsiella UTI, on meropenem, will follow sensitivities. 5. Tangela, intertrigo and vulval, will use nystatin powder and Diflucan 150mg X1 6. Hypertension, controlled, off Losartan, will continue to monitor. 7. Type 2 DM, BS is running, will continue with accucheks and ISS. 8. Chronic iron deficiency anemia, on po iron 9. Hyperlipidemia, on statin 10. Hypothyroidism, on levothyroxine 11. DVT PPx- Heparin SC 11. Code status - full code. Code Visit Inpatient E&M: 85740 Subs Hosp L2
[2018-04-16] MEDS: FLUCONAZOLE 150 MG TABLET PO (15:56)
[2018-04-16] MEDS: Nystatin Ointment 1 APPLIC TOPICAL ×2 (15:57→22:19)
[2018-04-16 17:15] LABS: Bedside Glucose 274 mg/dL (70-110)
[2018-04-16] MEDS: Cefepime 1 GM in 0.9% NS 50 ML Minibag Q12 IV (17:32)
[2018-04-16] MEDS: 0.9% NaCl Peripheral Flush Adult/Peds IV ×2 (17:33→23:15)
--- NOTE | 2018-04-16 18:59 | EKG12_ITS ---
Test Reason : Blood Pressure : / mmHG Vent. Rate : 127 BPM Atrial Rate : 125 BPM P-R Int : 000 ms QRS Dur : 154 ms QT Int : 380 ms P-R-T Axes : 000 109 -04 degrees QTc Int : 552 ms Atrial fibrillation with rapid ventricular response Right bundle branch block Possible Inferior infarct , age undetermined Abnormal ECG Confirmed by NOHEMI SINCLAIR, NINO ([id number]), material expeditor JONO GREGG ([id number] on 04/21/2018 3:45:37 PM Referred By: Mac Emery Confirmed By:NINO SONG MD
--- NOTE | 2018-04-16 18:59 | EKG12_ITS ---
Test Reason : Blood Pressure : / mmHG Vent. Rate : 129 BPM Atrial Rate : 138 BPM P-R Int : 000 ms QRS Dur : 150 ms QT Int : 384 ms P-R-T Axes : 000 084 -11 degrees QTc Int : 562 ms Atrial fibrillation with rapid ventricular response Right bundle branch block Inferior infarct , age undetermined Abnormal ECG Confirmed by NOHEMI SINCLAIR, NINO ([id number]), development editor JONO GREGG ([id number] on 04/21/2018 3:45:53 PM Referred By: Mac Emery Confirmed By:NINO SONG MD
[2018-04-16] MEDS: Atorvastatin Calcium 10 MG Tablet PO (22:21)
[2018-04-16 22:35] LABS: Bedside Glucose 289 mg/dL (70-110)
--- NOTE | 2018-04-16 23:03 | EKG12_ITS ---
Test Reason : Blood Pressure : / mmHG Vent. Rate : 138 BPM Atrial Rate : 138 BPM P-R Int : 000 ms QRS Dur : 152 ms QT Int : 258 ms P-R-T Axes : 000 117 -33 degrees QTc Int : 390 ms Atrial fibrillation with rapid ventricular response Right bundle branch block Inferior infarct , age undetermined Abnormal ECG Confirmed by NOHEMI SINCLAIR, NINO ([id number]), book editor JONO GREGG ([id number] on 04/21/2018 3:46:57 PM Referred By: Mac Emery Confirmed By:NINO SONG MD
[2018-04-16] MEDS: Zolpidem Tartrate 5 MG Tablet PO (23:15)
[2018-04-16] MEDS: Metoprolol Tartrate 5 MG/5 ML Vial IV (23:16)
[2018-04-16] MEDS: Metoprolol Tartrate 25 MG Tablet PO (23:40)
--- NOTE | 2018-04-16 23:54 | PCM.HOSP.N ---
Hospitalist Note Nurse called me for A. fib with RVR. Patient seen and examined. Patient has history of paroxysmal A. fib was diagnosed A[place] fib in [place]. On home medication, she is on metoprolol 25 twice daily which was held secondary to hypotension, acute kidney injury on CKD stage IV and severe metabolic acidosis. EKG was ordered and reviewed. A. fib with RVR at 127 beats per minute admitting EKG shows normal sinus rhythm. She has a right bundle branch block. 5 mg metoprolol IV given heart rate is down to 108/min. Blood pressure is maintained 110/57. Patient had 1225 mL urine output today with positive balance of 1567 mL. Patient is on bicarb drip at 50 mL/h. Patient hydration status seems euvolemic. I think She had A. fib with RVR most probably medications was on hold or probably secondary to infection due to Klebsiella UTI and Klebsiella and Staphylococcus right leg wound. She is on IV meropenem. Continue metoprolol 25 mg twice daily. Patient is not good candidate for full anticoagulation because of acute kidney injury on CKD stage IV which itself is coagulopathy condition. Patient is on heparin subcut 5000 units twice daily Active Medications Acetaminophen (Tylenol) 1,000 mg PO TID [facility] Last Admin: 04/16/18 22:20 Dose: 1,000 mg Aspirin (Aspirin, Baby) 81 mg PO DAILY@0800 [facility] Last Admin: 04/16/18 08:18 Dose: Not Given Atorvastatin Calcium (Lipitor) 10 mg PO QHS [facility] Last Admin: 04/16/18 22:21 Dose: 10 mg Calamine/Phenol (Calmoseptine Ointment) 1 applic TOPICAL BID [facility]; Protocol Last Admin: 04/16/18 22:18 Dose: 1 applicatio Ferrous Sulfate (Ferrous Sulfate) 325 mg PO 1200,1700 [facility] Last Admin: 04/16/18 17:32 Dose: 325 mg Heparin Sodium (Porcine) (Heparin Na) 5,000 unit SC BID [facility] Last Admin: 04/16/18 22:17 Dose: Not Given Cefepime HCl 1 gm/ Sodium (Chloride) 50 mls @ 100 mls/hr IV Q24H [facility] Last Admin: 04/16/18 17:32 Dose: 100 mls/hr Sodium Bicarbonate 150 meq/ (Dextrose) 1,150 mls @ 50 mls/hr IV .Q23H [facility] Insulin Human Lispro (Humalog Kwikpen (Bkc)) 0 unit SC ACHS [facility]; Protocol Last Admin: 04/16/18 22:18 Dose: 3 u Levothyroxine Sodium (Synthroid) 137 mcg PO DAILY@0600 [facility] Last Admin: 04/16/18 05:28 Dose: 137 mcg Magnesium Hydroxide (Milk Of Magnesia) 30 ml PO DAILY PRN PRN PRN Reason: Constipation Metoprolol Tartrate (Lopressor (Beta Arpit)) 25 mg PO BID [facility] Last Admin: 04/16/18 23:40 Dose: 25 mg Nystatin (Mycostatin) 1 applic TOPICAL TID [facility]; Protocol Last Admin: 04/16/18 22:19 Dose: 1 applicatio Ondansetron HCl (Zofran) 4 mg IV Q6H PRN PRN PRN Reason: NAUSEA/VOMITING Last Admin: 04/14/18 14:40 Dose: 4 mg Pantoprazole Sodium (Protonix) 40 mg PO DAILY [facility] Last Admin: 04/16/18 09:05 Dose: 40 mg Sodium Chloride () 5 - 15 ml IV UD PRN PRN Reason: SALINE FLUSH Last Admin: 04/16/18 23:15 Dose: 10 ml Zolpidem Tartrate (Ambien (Generic)) 5 mg PO QHS PRN PRN PRN Reason: INSOMNIA Last Admin: 04/16/18 23:15 Dose: 5 mg
[2018-04-17] VITALS (16 sets, daily range): BP systolic 105–115; BP diastolic 45–67; PULSE 80–105; RESP 16–18; TEMP 36.7–37.4; O2SAT 93–95
--- NOTE | 2018-04-17 | CCHN_ITS ---
Hospitalist Note Nurse called me for A. fib with RVR. Patient seen and examined. Patient has history of paroxysmal A. fib was diagnosed A. fib [place]. On home medication, she is on metoprolol 25 twice daily which was held secondary to hypotension, acute kidney injury on CKD stage IV and severe metabolic acidosis. EKG was ordered and reviewed. A. fib with RVR at 127 beats per minute admitting EKG shows normal sinus rhythm. She has a right bundle branch block. 5 mg metoprolol IV given heart rate is down to 108/min. Blood pressure is maintained 110/57. Patient had 1225 mL urine output today with positive balance of 1567 mL. Patient is on bicarb drip at 50 mL/h. Patient hydration status seems euvolemic. I think She had A. fib with RVR most probably medications was on hold or probably secondary to infection due to Klebsiella UTI and Klebsiella and Staphylococcus right leg wound. She is on IV meropenem. Continue metoprolol 25 mg twice daily. Patient is not good candidate for full anticoagulation because of acute kidney injury on CKD stage IV which itself is coagulopathy condition. Patient is on heparin subcut 5000 units twice daily Active Medications Acetaminophen (Tylenol) 1,000 mg PO TID [facility] Last Admin: 04/16/18 22:20 Dose: 1,000 mg Aspirin (Aspirin, Baby) 81 mg PO DAILY@0800 [facility] Last Admin: 04/16/18 08:18 Dose: Not Given Atorvastatin Calcium (Lipitor) 10 mg PO QHS [facility] Last Admin: 04/16/18 22:21 Dose: 10 mg Calamine/Phenol (Calmoseptine Ointment) 1 applic TOPICAL BID [facility]; Protocol Last Admin: 04/16/18 22:18 Dose: 1 applicatio Ferrous Sulfate (Ferrous Sulfate) 325 mg PO 1200,1700 [facility] Last Admin: 04/16/18 17:32 Dose: 325 mg Heparin Sodium (Porcine) (Heparin Na) 5,000 unit SC BID [facility] Last Admin: 04/16/18 22:17 Dose: Not Given Cefepime HCl 1 gm/ Sodium (Chloride) 50 mls @ 100 mls/hr IV Q24H [facility] Last Admin: 04/16/18 17:32 Dose: 100 mls/hr Sodium Bicarbonate 150 meq/ (Dextrose) 1,150 mls @ 50 mls/hr IV .Q23H [facility] Insulin Human Lispro (Humalog Kwikpen (Bkc)) 0 unit SC ACHS [facility]; Protocol Last Admin: 04/16/18 22:18 Dose: 3 u Levothyroxine Sodium (Synthroid) 137 mcg PO DAILY@0600 [facility] Last Admin: 04/16/18 05:28 Dose: 137 mcg Magnesium Hydroxide (Milk Of Magnesia) 30 ml PO DAILY PRN PRN PRN Reason: Constipation Metoprolol Tartrate (Lopressor (Beta Arpit)) 25 mg PO BID [facility] Last Admin: 04/16/18 23:40 Dose: 25 mg Nystatin (Mycostatin) 1 applic TOPICAL TID [facility]; Protocol Last Admin: 04/16/18 22:19 Dose: 1 applicatio Ondansetron HCl (Zofran) 4 mg IV Q6H PRN PRN PRN Reason: NAUSEA/VOMITING Last Admin: 04/14/18 14:40 Dose: 4 mg Pantoprazole Sodium (Protonix) 40 mg PO DAILY [facility] Last Admin: 04/16/18 09:05 Dose: 40 mg Sodium Chloride () 5 - 15 ml IV UD PRN PRN Reason: SALINE FLUSH Last Admin: 04/16/18 23:15 Dose: 10 ml Zolpidem Tartrate (Ambien (Generic)) 5 mg PO QHS PRN PRN PRN Reason: INSOMNIA Last Admin: 04/16/18 23:15 Dose: 5 mg
[2018-04-17] MEDS: Acetaminophen 500 MG Tablet 1000 MG PO ×3 (04:26→21:28)
[2018-04-17] MEDS: Nystatin Ointment 1 APPLIC TOPICAL ×3 (04:27→21:32)
[2018-04-17] MEDS: Levothyroxine 137 MCG Tablet PO (06:02)
[2018-04-17 06:56] LABS: Bedside Glucose 218 mg/dL (70-110)
[2018-04-17 07:31] LABS: Albumin, Serum 2.1 g/dL (3.2-5.0); BUN 105 mg/dL (7-18); BUN/Creat Ratio 36.1 RATIO (10-20); Calcium,Total 8.1 mg/dL (8.5-10.1); Chloride 99 mmol/L (98-107); Creatinine, Serum 2.91 mg/dL (0.55-1.02); EST Glomerular Filtration Rate 16 mL/min (>60); Est Glom Filt Rate - Afr Amer 20 mL/min (>60); Estimated Creatinine Clearance 11.05 ml/min; Glucose 233 mg/dL (74-106); Phosphorus 3.8 mg/dL (2.5-4.9); Potassium 3.7 mmol/L (3.5-5.1); Sodium Level 136 mmol/L (136-145)
--- NOTE | 2018-04-17 10:03 | PN_ITS ---
Subjective: Patient was seen and examined. She feels better. Overnight, her HR was elevated and found to be in A. fib with RVR. She was given IV metoprolol 5mg x 1. HR is much controlled. Objective: Physical exam: General: Alert, Oriented x3, Cooperative, No apparent distress, feeling better HEENT: Atraumatic, PERRLA, EOMI, Normocephalic Oral: Moist Mucosa Neck: Supple, No JVD, Negative Carotid Bruits Lungs: Normal air movement, Diminished Cardiovascular: Regular rate, Regular Rhythm, Normal S1, Normal S2, Tachycardic Abdomen: Bowel Sounds Present, Soft, Non Tender, Non-Distended, No Hepato- splenomegaly, 3cm by 2cm stage 2 pressure ulcer on the left gluteal region Extremities: Edema - +2-3, TAYLOR-wrap to both legs. Skin: No rashes, No breakdown Musculoskeletal: No Tenderness to Palpation of Joints or Extremities Lymphatic: No Cervical, Supraclavicular, or Inguinal Adenopathy Neurological: Cranial nerves II-XII grossly intact, Neuro grossly intact, - - No flapping tremors. Psych/Mental Status: Normal Affect, Appropriate Vitals/I&O's: Vital Signs Temp Pulse Resp BP Pulse Ox 98.0 F 84 16 107/67 94 04/17/18 04:10 04/17/18 07:00 04/17/18 04:10 04/17/18 04:10 04/17/18 06:33 Oxygen Delivery Method Room Air Weight: 84 kg Body Mass Index (BMI) 35.1 Finger Stick Blood Glucose 119 Intake and Output for Last 24 Hours 04/15/18 04/16/18 04/17/18 23:59 23:59 23:59 Intake Total 2819 / 2819 3424 / 3424 543 / 543 Output Total 1150 / 1150 1425 / 1425 200 / 200 Balance 1669 / 1669 1998 343 / 343 Microbiology Past 72 Hours 04/14/18 17:20 Wound - Leg, Right Gram Stain - Final 04/14/18 17:20 Wound - Leg, Right Wound Culture - Final Klebsiella oxytoca Staphylococcus aureus 04/14/18 17:20 Urine Catheter - Garcia Urine Culture - Final Klebsiella pneumoniae sp pneum Laboratory Results 04/16/18 12:11: POC Glucose 249 H 04/16/18 16:59: POC Glucose 274 H 04/16/18 22:16: POC Glucose 289 H 04/17/18 06:25: Sodium 136, Potassium 3.7, Chloride 99, Carbon Dioxide 27.0, BUN 105 H*, Creatinine 2.91 H, Estim Creat Clear Calc 11.05, Est GFR (MDRD) Af Amer 20 L, Est GFR (MDRD) Non-Af 16 L, BUN/Creatinine Ratio 36.1 H, Glucose 233 H, Calcium 8.1 L, Phosphorus 3.8, Albumin 2.1 L 04/17/18 06:53: POC Glucose 218 H Current Medications Acetaminophen (Tylenol) 1,000 mg PO TID [facility] Last Admin: 04/17/18 04:26 Dose: 1,000 mg Aspirin (Aspirin, Baby) 81 mg PO DAILY@0800 [facility] Last Admin: 04/16/18 08:18 Dose: Not Given Atorvastatin Calcium (Lipitor) 10 mg PO QHS [facility] Last Admin: 04/16/18 22:21 Dose: 10 mg Calamine/Phenol (Calmoseptine Ointment) 1 applic TOPICAL BID [facility]; Protocol Last Admin: 04/16/18 22:18 Dose: 1 applicatio Ferrous Sulfate (Ferrous Sulfate) 325 mg PO 1200,1700 [facility] Last Admin: 04/16/18 17:32 Dose: 325 mg Heparin Sodium (Porcine) (Heparin Na) 5,000 unit SC BID [facility] Last Admin: 04/16/18 22:17 Dose: Not Given Cefepime HCl 1 gm/ Sodium (Chloride) 50 mls @ 100 mls/hr IV Q24H [facility] Last Admin: 04/16/18 17:32 Dose: 100 mls/hr Sodium Bicarbonate 150 meq/ (Dextrose) 1,150 mls @ 50 mls/hr IV .Q23H [facility] Last Admin: 04/17/18 04:24 Dose: 50 mls/hr Insulin Human Lispro (Humalog Kwikpen (Bkc)) 0 unit SC ACHS [facility]; Protocol Last Admin: 04/16/18 22:18 Dose: 3 u Levothyroxine Sodium (Synthroid) 137 mcg PO DAILY@0600 [facility] Last Admin: 04/17/18 06:02 Dose: 137 mcg Magnesium Hydroxide (Milk Of Magnesia) 30 ml PO DAILY PRN PRN PRN Reason: Constipation Metoprolol Tartrate (Lopressor (Beta Arpit)) 25 mg PO BID [facility] Last Admin: 04/16/18 23:40 Dose: 25 mg Nystatin (Mycostatin) 1 applic TOPICAL TID [facility]; Protocol Last Admin: 04/17/18 04:27 Dose: 1 applicatio Ondansetron HCl (Zofran) 4 mg IV Q6H PRN PRN PRN Reason: NAUSEA/VOMITING Last Admin: 04/14/18 14:40 Dose: 4 mg Pantoprazole Sodium (Protonix) 40 mg PO DAILY [facility] Last Admin: 04/16/18 09:05 Dose: 40 mg Sodium Chloride () 5 - 15 ml IV UD PRN PRN Reason: SALINE FLUSH Last Admin: 04/16/18 23:15 Dose: 10 ml Zolpidem Tartrate (Ambien (Generic)) 5 mg PO QHS PRN PRN PRN Reason: INSOMNIA Last Admin: 04/16/18 23:15 Dose: 5 mg Medical Necessity - Tobacco Use Smoking Status: Never smoker Assessment/Plan 83 year-old female with PMHx of hypertension, hyperlipidemia, morbid obesity, chronic venous stasis admitted with abnormal blood work. She had gone to her PCP with nosebleed and blood work was done that wa abnormal and patient was sent here with acute renal failure, metabolic acidosis and hyperkalemia. 1. RUBINA on CKD stage 4, secondary to dehydration/hypotension/acute tubular necrosis, improving, Cr improved from 7.17 to 2.91, Off Losartan and Lasix, nephrology consulted, will trend labs. 2. Hyperkalemia, resolved 3. Acute metabolic acidosis secondary to #1, resolved, HCO3 today is 27, on bicarbonate drip, nephrology consulted, will dc bicarbonate drip 4. Suspected Klebsiella UTI, on cefepime (day 4 of antibiotics) will switch to cefdinir from tomorrow to complete 7 days. 5. Tangela, intertrigo and vulval, on nystatin powder and Diflucan. 6. Hypertension, controlled, off Losartan, will continue to monitor. 7. Type 2 DM, BS is running, will continue with accucheks and ISS. 8. Chronic iron deficiency anemia, on po iron 9. Hyperlipidemia, on statin 10. Hypothyroidism, on levothyroxine 11. DVT PPx- Heparin SC 11. Code status - full code. Code Visit Inpatient E&M: 28300 Subs Hosp L2
[2018-04-17] MEDS: Pantoprazole Sodium 40 MG Tablet PO (10:22)
[2018-04-17] MEDS: Insulin Lispro 100 UNIT/ML INSULN.PEN SC ×4 (10:22→21:27)
[2018-04-17] MEDS: Metoprolol Tartrate 25 MG Tablet PO ×2 (12:38→21:28)
[2018-04-17] MEDS: Menthol/Lanolin/Calamine/Znox 113 GM Tube 1 APPLIC TOPICAL ×2 (12:38→21:30)
[2018-04-17] MEDS: Ferrous Sulfate 325 MG Tablet PO ×2 (12:39→17:01)
--- NOTE | 2018-04-17 13:28 | PCM.PN.REN ---
Subjective: no nausea, vomiting, shortness of breath. Renal fxn continues to improve. Continue to hold on lasix and losartan BP low. - Physical Exam General: Alert, Oriented x3, Cooperative, No apparent distress Lungs: Clear to auscultation Cardiovascular: Irregular Rate Abdomen: Bowel Sounds Present, Soft, Non Tender, Non-Distended, Obese Extremities: No edema Psych/Mental Status: Normal Affect, Appropriate, Alert and oriented to time, place, person, mood and affect Vital Signs Temp Pulse Resp BP Pulse Ox 98.4 F 94 18 107/54 L 94 04/17/18 09:59 04/17/18 12:38 04/17/18 09:59 04/17/18 12:21 04/17/18 09:59 Oxygen Delivery Method Room Air Weight: 84 kg Body Mass Index (BMI) 35.1 Finger Stick Blood Glucose 119 Intake and Output for Last 24 Hours 04/15/18 04/16/18 04/17/18 23:59 23:59 23:59 Intake Total 2819 / 2819 3424 / 3424 743 / 743 Output Total 1150 / 1150 1425 / 1425 350 / 350 Balance 1669 / 1669 1998 393 / 393 Microbiology Past 72 Hours 04/14/18 17:20 Gram Stain - Final Wound - Leg, Right Wound Culture - Final Klebsiella oxytoca Staphylococcus aureus 04/14/18 17:20 Urine Culture - Final Urine Catheter - Garcia Klebsiella pneumoniae sp pneum Laboratory Tests Past 24 Hrs 04/17/18 06:25 Sodium 136 Potassium 3.7 Chloride 99 Carbon Dioxide 27.0 BUN 105 H* Creatinine 2.91 H Estim Creat Clear Calc 11.05 Est GFR (MDRD) Af Amer 20 L Est GFR (MDRD) Non-Af 16 L BUN/Creatinine Ratio 36.1 H Glucose 233 H Calcium 8.1 L Phosphorus 3.8 Albumin 2.1 L POC Glucose 04/17/18 04/16/18 04/16/18 06:53 22:16 16:59 POC Glucose 218 H 289 H 274 H Medical Necessity - Tobacco Use Smoking Status: Never smoker Assessment/Plan 1. Acute kidney injury due to dehydration, hypotension, possible acute tubular necrosis from shock. FENA <1%. Remain off losartan and Lasix. No dialysis needed. Renal fxn continues to improve 2. Sepsis syndrome without leukocytosis or fever. BP stable. Hold BP meds on discharge 3. Acute hyperkalemia due to metabolic acidosis, acute renal failure improved. 4. History of nephrolithiasis with obstructive stone on the left kidney back in June 2017. CT of the abdomen without obstructive stone in the right kidney. 5. UTI klebsiella pna IV antibiotic therapy per primary service, renal dosed 6. Chronic atrial fibrillation with rate control 7. anemia check cbc
[2018-04-17 13:40] LABS: Bedside Glucose 255 mg/dL (70-110)
--- NOTE | 2018-04-17 15:56 | CASEMGMT ---
[facility] SW let him know patient will be ready tomorrow. CHRISTINE let patient and her son know [facility] can take her and that the tentative plan is for tomorrow. They would like [facility] to set up the transport. Plan: Digna Lowe under skilled level of care on a convalescent stay. Staff to set up transport. Monica ARIAS MSW
[2018-04-17 17:11] LABS: Bedside Glucose 261 mg/dL (70-110)
[2018-04-17] MEDS: Cefepime 1 GM in 0.9% NS 50 ML Minibag Q12 IV (18:46)
[2018-04-17] MEDS: 0.9% NaCl Peripheral Flush Adult/Peds IV (18:46)
[2018-04-17] MEDS: Atorvastatin Calcium 10 MG Tablet PO (21:28)
[2018-04-17 23:06] LABS: Bedside Glucose 243 mg/dL (70-110)
[2018-04-18] VITALS (8 sets, daily range): BP systolic 102–139; BP diastolic 38–55; PULSE 66–87; RESP 15–20; TEMP 36.7–37.1; O2SAT 93–97
[2018-04-18] MEDS: Zolpidem Tartrate 5 MG Tablet PO (00:21)
[2018-04-18] MEDS: Nystatin Ointment 1 APPLIC TOPICAL ×2 (05:36→13:52)
[2018-04-18] MEDS: Levothyroxine 137 MCG Tablet PO (05:36)
[2018-04-18] MEDS: Acetaminophen 500 MG Tablet 1000 MG PO ×2 (05:36→13:51)
[2018-04-18 07:01] LABS: Bedside Glucose 175 mg/dL (70-110)
[2018-04-18 07:20] LABS: Hemoglobin 8.8 g/dl (12.0-15.0); Mean Corp Hgb Conc 31.4 g/gl (32-36); Mean Corpuscular Hgb 31.4 pg (27.0-32.0); Mean Platelet Vol. 9.6 fl (6.2-12.0); Platelet Count 202 K/mm3 (150-450); RBC Distribution Width CV 15.1 % (11.6-14.6); RBC Distribution Width SD 55.1 fl (35.1-43.9); White Blood Count 7.3 K/mm3 (4.4-11.0)
[2018-04-18 07:21] LABS: Scan Indicated on CBC? Y/N NO
[2018-04-18 07:52] LABS: BUN 87 mg/dL (7-18); BUN/Creat Ratio 36.4 RATIO (10-20); Calcium,Total 8.6 mg/dL (8.5-10.1); Chloride 99 mmol/L (98-107); Creatinine, Serum 2.39 mg/dL (0.55-1.02); EST Glomerular Filtration Rate 21 mL/min (>60); Est Glom Filt Rate - Afr Amer 25 mL/min (>60); Estimated Creatinine Clearance 13.46 ml/min; Glucose 169 mg/dL (74-106); Phosphorus 3.2 mg/dL (2.5-4.9); Potassium 3.4 mmol/L (3.5-5.1); Sodium Level 140 mmol/L (136-145)
[2018-04-18] MEDS: Menthol/Lanolin/Calamine/Znox 113 GM Tube 1 APPLIC TOPICAL (09:00)
[2018-04-18] MEDS: Insulin Lispro 100 UNIT/ML INSULN.PEN SC ×2 (09:00→13:50)
[2018-04-18] MEDS: Metoprolol Tartrate 25 MG Tablet PO (09:01)
[2018-04-18] MEDS: Pantoprazole Sodium 40 MG Tablet PO (09:01)
--- NOTE | 2018-04-18 09:03 | NURSING ---
Patient voices that she would like to wait and discuss taking ASA and heparin vs restarting Eliquis with hospitalist.
--- NOTE | 2018-04-18 11:31 | PCM.TXEXTCAR ---
- Diet 04/14/18 14:29 Diet: Renal: 60 gm protein Food consistency:: Regular Liquid Consistency:: Regular/Thin Is pt able to select menu?: Yes - Routine Orders/Code Status Routine Lab Work: CBC - within 3 day, BMP - within 3 days Code Status: Full Code - Wound(s) BLE Wound Type: scattered weeping areas Dressing Change: Adaptic Bridge of nose Wound Type: Abrasion R Buttock Wound Type: Pressure Injury Left Buttock Wound Type: Pressure Injury - Therapies Weight Bearing: Weight bearing as tolerated Physical Therapy: Eval and Treat Occupational Therapy: Eval and Treat - Allergies/Procedures Done in Hospital Allergies/Adverse Reactions: Allergies lisinopril Adverse Reaction (Verified 07/14/17 13:17) Other COUGH Procedures: 2-D Echocardiogram - Type of Care/Length of Stay Estimated LOS: Convalescent Care Less Than 30 days Type of Care Needed: Inpt Hospice Facility Rehab Potential: Fair Prognosis: Fair - Additional Orders/Day of Discharge Day of Discharge: 04/18/18 - Dietary and Speech Recommendations Dietitian Recommendations/Changes: Recommend continue Renal diet as ordered. Recommend Inshant 1 pkt BID--order from pharmacy. - Follow Up Care Primary Care Physician: Lily Keller MD [Primary Care Provider] - Please follow up with your Primary Care Physician in: within 1-2 weeks of discharge Please Follow Up With: Carie Blanco DO When: within 1-2 weeks for repeat blood work and follow-up
--- NOTE | 2018-04-18 11:41 | DS.PCM_ITS ---
Discharge Date and Diagnosis Date of Admission: 04/14/18 Date of Discharge: 04/18/18 - Primary Discharge Diagnosis RUBINA on CKD stage IV Hyperkalemia Acute metabolic acidosis Klebsiella UTI Atngela infection, intertrigo and vulvar A. fib with RVR Recent nosebleed Stage II pressure/decubitus ulcer, present on admission - Secondary Discharge Diagnosis Chronic Problems Left nephrolithiasis (Chronic) Hydroureter, left (Chronic) Hydronephrosis, left (Chronic) HTN (hypertension) (Chronic) HLD (hyperlipidemia) (Chronic) Chronic lymphedema (Chronic) Iron deficiency anemia (Chronic) Morbid obesity (Chronic) Chronic venous stasis dermatitis (Chronic) Hospital Course and Treatment Imaging Results: Clinical Impression(s) from Imaging Studies Abdomen/Pelvis CT 04/14/18 14:51 IMPRESSION: Bilateral renal cysts. Nonobstructive right intrarenal calculus. There has been no change since prior study. Electronically Signed: Rojas Henriquez MD at 15:52 EST Tel [phone], Service support , Chest X-Ray 04/14/18 15:20 IMPRESSION: No acute cardiopulmonary process. Electronically Signed: Eve Garcia MD at 23:15 EST Tel , Service support , Consultations 04/14/18 14:30 Consult: Onc/Wound/conference services coordinator Routine Comment: Reason for Consult:: leg wounds Nephrology - Dr. Blanco Operations: None, - - cystoscopy with stent placement Procedures: 2-D Echocardiogram Summary of Care Provided: 83 year-old female with PMHx of hypertension, hyperlipidemia, morbid obesity, chronic venous stasis admitted with abnormal blood work. She had gone to her PCP with nosebleed and blood work was done that was abnormal and patient was sent here with acute renal failure, metabolic acidosis and hyperkalemia. Her management was as follows: 1. RUBINA on CKD stage 4, secondary to dehydration/hypotension/acute tubular necrosis, admitted with Creatinine of 7.17, BUN 173. She was started on gentle fluids, nephrology consulted. Patient refused dialysis. CT scan of the abdomen and pelvis on admission did not show any obstruction. Her creatinine improved to 2.39. Her Losartan and Lasix were held. 2. Hyperkalemia, potassium was 5.8, improved with treatment of metabolic acidosis, patient was hypokalemic on day of discharge, and treated. Will be followed up with a BMP in the outpatient. 3. Acute metabolic acidosis secondary to #1, admitted with a bicarb level of 9, started on bicarbonate drip, improved, bicarbonate drip was discontinued, bicarb on discharge was 30. Patient will follow up with a primary duplicating machine operator. 4. Suspected Klebsiella UTI, initially on cefepime and switch to cefdinir on discharge for a total of 7 days. 5. Stage II pressure ulcer, present on the left gluteal region, present on admission, noted in the nurses admission notes, managed with wound nurse with calmoseptine 6. Tangela, intertrigo and vulval, on nystatin powder and Diflucan. 7. Hypertension, pressure remained stable off blood pressure medications 8. Type 2 DM, home hypoglycemic agent was held, as blood sugars are running low, managed on insulin sliding scale, discharged with Dilaudid 9. Chronic iron deficiency anemia, on po iron 10. Hyperlipidemia, on statin 11. Hypothyroidism, on levothyroxine 12. Chronic Atrial fibrillation, rate controlled, had an episode of RVR, improved with IV metoprolol. Her Eliquis had been held on admission because of prior nosebleeds, was not on any anticoagulation, resumed on her metoprolol, her heart rate was controlled. 13. Recent nosebleed, off Eliquis, aspirin. Subjective: On the day of discharge, patient felt improved, edema of the lower extremities is improving with Hadley wrapping. No other events overnight. No AV with RVR. Objective: Physical exam: General: Alert, Oriented x3, Cooperative, No apparent distress, feeling better HEENT: Atraumatic, PERRLA, EOMI, Normocephalic Oral: Moist Mucosa Neck: Supple, No JVD, Negative Carotid Bruits Lungs: Normal air movement, Diminished Cardiovascular: Regular rate, Regular Rhythm, Normal S1, Normal S2, Tachycardic Abdomen: Bowel Sounds Present, Soft, Non Tender, Non-Distended, No Hepato- splenomegaly, 3cm by 2cm stage 2 pressure ulcer on the left gluteal region Extremities: Edema - +2-3, HADLEY-wrap to both legs. Skin: No rashes, No breakdown Musculoskeletal: No Tenderness to Palpation of Joints or Extremities Lymphatic: No Cervical, Supraclavicular, or Inguinal Adenopathy Neurological: Cranial nerves II-XII grossly intact, Neuro grossly intact, - - No flapping tremors. Psych/Mental Status: Normal Affect, Appropriate - Physical Exam Vital Signs Temp Pulse Resp BP Pulse Ox 98.0 F 74 16 117/51 L 94 04/18/18 08:08 04/18/18 09:01 04/18/18 08:08 04/18/18 08:08 04/18/18 08:08 Oxygen Delivery Method Room Air Weight: 84 kg Body Mass Index (BMI) 35.1 Finger Stick Blood Glucose 119 Intake and Output for Last 24 Hours 04/16/18 04/17/18 04/18/18 23:59 23:59 23:59 Intake Total 3424 / 3424 1423 / 1423 360 / 360 Output Total 1425 / 1425 450 / 450 200 / 200 Balance 1998 973 / 973 160 / 160 Microbiology Past 72 Hours 04/14/18 17:20 Gram Stain - Final Wound - Leg, Right Wound Culture - Final Klebsiella oxytoca Staphylococcus aureus 04/14/18 17:20 Urine Culture - Final Urine Catheter - Garcia Klebsiella pneumoniae sp pneum Laboratory Tests Past 24 Hrs 04/18/18 04/18/18 06:37 06:37 WBC 7.3 RBC 2.80 L Hgb 8.8 L Hct 28.0 L MCV 100.0 H MCH 31.4 MCHC 31.4 L RDW 15.1 H RDW Differential 55.1 H Plt Count 202 MPV 9.6 Sodium 140 Potassium 3.4 L Chloride 99 Carbon Dioxide 30.0 BUN 87 H Creatinine 2.39 H Estim Creat Clear Calc 13.46 Est GFR (MDRD) Af Amer 25 L Est GFR (MDRD) Non-Af 21 L BUN/Creatinine Ratio 36.4 H Glucose 169 H Calcium 8.6 Phosphorus 3.2 Albumin 2.0 L POC Glucose 04/18/18 04/17/18 04/17/18 06:48 21:26 16:59 POC Glucose 175 H 243 H 261 H 04/17/18 12:31 POC Glucose 255 H Discharge Diet: Low fat/ Low Cholesterol, 2000 mg Sodium Diet, Carb Control Diet Discharge Activity: Return to Normal Activity Home Medications: Medications to take at Discharge Atorvastatin Calcium [Lipitor] 10 mg PO DAILY 06/20/17 Ferrous Sulfate 325 mg PO BID 06/20/17 Levothyroxine [Synthroid] 137 mcg PO DAILY 06/20/17 Multivit-Min/FA/Lycopen/Lutein [Centrum Silver Tablet] 1 each PO DAILY 06/20/17 Omeprazole [Prilosec] 20 mg PO DAILY 06/20/17 Allopurinol 100 mg PO QHS 04/15/18 Metoprolol Tartrate [Lopressor (beta norm)] 25 mg PO BID 04/15/18 Acetaminophen [Tylenol] 1,000 mg PO TID tablet 04/18/18 Cefdinir [Omnicef [equiv]] 300 mg PO DAILY #3 capsule 04/18/18 Insulin Lispro [Humalog KwikPen] See Protocol SC ACHS insuln.pen 04/18/18 Menthol/Lanolin/Calamine/Znox [Calmoseptine Ointment] 1 applic TOPICAL BID tube 04/18/18 Nystatin [Mycostatin] 1 applic TOPICAL TID tube 04/18/18 Following Prescrptions Were Given to Patient: Cefdinir [Omnicef [equiv]] 300 mg PO DAILY #3 capsule Primary Care Physician: Lily Keller MD [Primary Care Provider] - Please follow up with your Primary Care Physician in: within 1-2 weeks of discharge Please Follow Up With: Carie Blanco DO When: within 1-2 weeks for repeat blood work and follow-up Disposition: Jail facility Minutes spent on discharge:: 55 Patient Condition:: Fair Medical Necessity - Tobacco Use Smoking Status: Never smoker Tobacco Use: Non-smoker Meaningful Use Info Meaningful Use Diagnoses (Choose all that apply): None applicable Code Visit Inpatient E&M: 70646 Disch Hosp
[2018-04-18 11:56] LABS: Bedside Glucose 322 mg/dL (70-110)
[2018-04-18] MEDS: Ferrous Sulfate 325 MG Tablet PO (13:51)
--- NOTE | 2018-04-18 14:04 | NURSING ---
Report called to Sandi, nurse at [facility].
--- OUTSIDE RECORDS SUMMARY | 2018-06-16 19:54 | XMS RPT_ITS ---
:1935 Author Organization [facility] Support Name Relationship Address Phone KORINA GUALLPA Unavailable [address] + [place] [address] NOT GIVEN Unavailable Unavailable Unavailable KORINA GUALLPA Unavailable [address] + [place] [address] R Unavailable Unavailable Unavailable KORINA GUALLPA Unavailable [address] + [place] [address] R Unavailable Unavailable Unavailable KORINA GUALLPA Unavailable [address] + [place] [address] R Unavailable Unavailable Unavailable KORINA GUALLPA Unavailable [address] + [place] [address] R Unavailable Unavailable Unavailable KORINA GUALLPA Unavailable [address] + [place] [address] R Unavailable Unavailable Unavailable KORINA GUALLPA Unavailable [address] + [place] [address] R Unavailable Unavailable Unavailable KORINA GUALLPA Unavailable [address] + [place] [address] NOT GIVEN Unavailable Unavailable Unavailable KORINA GUALLPA Unavailable [address] + [place] [address] R Unavailable Unavailable Unavailable KORINA GUALLPA Unavailable [address] + [place] [address] NOT GIVEN Unavailable Unavailable Unavailable KORINA GUALLPA Unavailable [address] + [place] [address] NOT GIVEN Unavailable Unavailable Unavailable KORINA GUALLPA Unavailable [address] [phone] [place] [address] R Unavailable Unavailable Unavailable KORINA GUALLPA Unavailable [address] + [place] [address] NOT GIVEN Unavailable Unavailable Unavailable KORINA GUALLPA Unavailable [address] + [place] [address] NOT GIVEN Unavailable Unavailable Unavailable KORINA GUALLPA Unavailable [address] + [place] [address] NOT GIVEN Unavailable Unavailable Unavailable KORINA GUALLPA Unavailable [address] [phone] [place] [address] R Unavailable Unavailable Unavailable KORINA GUALLPA Unavailable [address] + [place] [address] NOT GIVEN Unavailable Unavailable Unavailable KORINA GUALLPA Unavailable [address] + [place] [address] NOT GIVEN Unavailable Unavailable Unavailable KORINA GUALLPA Unavailable [address] [phone] [place] [address] R Unavailable Unavailable Unavailable KORINA GUALLPA Unavailable [address] [phone] [place] [address] R Unavailable Unavailable Unavailable KORINA GUALLPA Unavailable [address] + [place] [address] R Unavailable Unavailable Unavailable KORINA GUALLPA Unavailable [address] [phone] [place] [address] R Unavailable Unavailable Unavailable KORINA GUALLPA Unavailable [address] [phone] [place] [address] R Unavailable Unavailable Unavailable KORINA GUALLPA Unavailable [address] [phone] [place] [address] R Unavailable Unavailable Unavailable KORINA GUALLPA Unavailable [address] [phone] [place] [address] R Unavailable Unavailable Unavailable KORINA GUALLPA Unavailable [address] [phone] [place] [address] R Unavailable Unavailable Unavailable KORINA GUALLPA Unavailable [address] [phone] [place] [address] R Unavailable Unavailable Unavailable KORINA GUALLPA Unavailable [address] + [place] [address] R Unavailable Unavailable Unavailable KORINA GUALLPA Unavailable [address] [phone] [place] [address] R Unavailable Unavailable Unavailable KORINA GUALLPA Unavailable [address] [phone] [place] [address] R Unavailable Unavailable Unavailable KORINA GUALLPA Unavailable [address] [phone] [place] [address] R Unavailable Unavailable Unavailable KORINA GUALLPA Unavailable [address] + [place] [address] NOT GIVEN Unavailable Unavailable Unavailable KORINA GUALLPA Unavailable [address] + [place] [address] NOT GIVEN Unavailable Unavailable Unavailable Care Team Providers Name Role Phone GALLO BULL MD Admitting Unavailable GALLO BULL MD Attending Unavailable GALLO BULL MD Primary Care Unavailable DANNY CHOI MD Consulting Unavailable PROVIDER, UNKNOWN Consulting Unavailable PROVIDER, UNKNOWN Consulting Unavailable PROVIDER, UNKNOWN Consulting Unavailable CONOR LEUNG DO Admitting Unavailable CONOR LEUNG DO Attending Unavailable CONOR LEUNG DO Primary Care Unavailable DANNY CHOI MD Consulting Unavailable PROVIDER, UNKNOWN Consulting Unavailable PROVIDER, UNKNOWN Consulting Unavailable PROVIDER, UNKNOWN Consulting Unavailable FRANCIS, CARIE I Admitting Unavailable FRANCIS, CARIE I Attending Unavailable FRANCIS, CARIE I Primary Care Unavailable DANNY CHOI MD Consulting Unavailable PROVIDER, UNKNOWN Consulting Unavailable PROVIDER, UNKNOWN Consulting Unavailable PROVIDER, UNKNOWN Consulting Unavailable FRANCIS, CARIE I Admitting Unavailable FRANCIS, CARIE I Attending Unavailable FRANCIS, CARIE I Primary Care Unavailable DANNY CHOI MD Consulting Unavailable PROVIDER, UNKNOWN Consulting Unavailable PROVIDER, UNKNOWN Consulting Unavailable PROVIDER, UNKNOWN Consulting Unavailable DANNY CHOI MD Referring Unavailable DANNY CHOI MD Consulting Unavailable SERGIO FLETCHER MD Admitting Unavailable SERGIO FLETCHER MD Attending Unavailable SERGIO FLETCHER MD Primary Care Unavailable PROVIDER, UNKNOWN Consulting Unavailable PROVIDER, UNKNOWN Consulting Unavailable PROVIDER, UNKNOWN Consulting Unavailable FRANCIS, CARIE I Admitting Unavailable FRANCIS, CARIE I Attending Unavailable FRANCIS, CARIE I Primary Care Unavailable DANNY CHOI MD Consulting Unavailable PROVIDER, UNKNOWN Consulting Unavailable PROVIDER, UNKNOWN Consulting Unavailable PROVIDER, UNKNOWN Consulting Unavailable FRANCIS, CARIE I Admitting Unavailable FRANCIS, CARIE I Attending Unavailable FRANCIS, CARIE I Primary Care Unavailable DANNY CHOI MD Consulting Unavailable PROVIDER, UNKNOWN Consulting Unavailable PROVIDER, UNKNOWN Consulting Unavailable PROVIDER, UNKNOWN Consulting Unavailable FRANCIS, CARIE I Admitting Unavailable FRANCIS, CARIE I Attending Unavailable FRANCIS, CARIE I Primary Care Unavailable DANNY CHOI MD Consulting Unavailable PROVIDER, UNKNOWN Consulting Unavailable PROVIDER, UNKNOWN Consulting Unavailable PROVIDER, UNKNOWN Consulting Unavailable DANNY CHOI MD Admitting Unavailable DANNY CHOI MD Attending Unavailable DANNY CHOI MD Primary Care Unavailable DANNY CHOI MD Consulting Unavailable PROVIDER, UNKNOWN Consulting Unavailable PROVIDER, UNKNOWN Consulting Unavailable PROVIDER, UNKNOWN Consulting Unavailable VAN, DR AMOS Osorio Admitting Unavailable VAN, DR AMOS Osorio Attending Unavailable DANNY CHOI MD Referring Unavailable VAN, DR AMOS Osorio Primary Care Unavailable DANNY CHOI MD Consulting Unavailable PROVIDER, UNKNOWN Consulting Unavailable PROVIDER, UNKNOWN Consulting Unavailable PROVIDER, UNKNOWN Consulting Unavailable DANNY CHOI MD Admitting Unavailable DANNY CHOI MD Attending Unavailable DANNY CHOI MD Primary Care Unavailable DANNY CHOI MD Consulting Unavailable PROVIDER, UNKNOWN Consulting Unavailable PROVIDER, UNKNOWN Consulting Unavailable PROVIDER, UNKNOWN Consulting Unavailable DANNY CHOI MD Attending Unavailable DANNY CHOI MD Primary Care Unavailable STEPH SINCLAIR., DR. JARVIS Hawk Attending Unavailable DANNY CHOI MD Primary Care Unavailable DANNY CHOI MD Attending Unavailable DANNY CHOI MD Primary Care Unavailable DANNY CHOI MD Attending Unavailable DANNY CHOI MD Primary Care Unavailable DANNY CHOI MD Attending Unavailable DANNY CHOI MD Primary Care Unavailable Nury Perales Attending Unavailable Nury Perales Referring Unavailable Danny Choi Primary Care Unavailable Bryononis, Mac F Admitting Unavailable Randytsonis, Mac F Referring Unavailable Danny Choi Primary Care Unavailable Francis, Carie Consulting Unavailable Paintsil, Emerson Attending Unavailable Randytsonis, Mac F Admitting Unavailable Ashelfah, Ghasem Attending Unavailable Kotsonis, Mac F Referring Unavailable Danny Choi Primary Care Unavailable Francis, Carie Consulting Unavailable Kotsonis, Mac F Consulting Unavailable Kotsonis, Mac F Admitting Unavailable Paintsil, Emerson Attending Unavailable Randytsonis, Mac F Referring Unavailable Danny Choi Primary Care Unavailable Francis, Carie Consulting Unavailable Paintsil, Emerson Consulting Unavailable Kotsonis, Mac F Admitting Unavailable Paintsil, Emerson Attending Unavailable Randytsonis, Mac F Referring Unavailable Danny Choi Primary Care Unavailable Francis, Carie Consulting Unavailable Paintsil, Emerson Consulting Unavailable Kotsonis, Mac F Admitting Unavailable Paintsil, Emerson Attending Unavailable Randytsonis, Mac F Referring Unavailable Danny Choi Primary Care Unavailable Francis, Carie Consulting Unavailable Paintsil, Emerson Consulting Unavailable Kotsonis, Mac F Admitting Unavailable Paintsil, Emerson Attending Unavailable Kwans, Mac F Referring Unavailable Danny Choi Primary Care Unavailable Francis, Carie Consulting Unavailable Paintsil, Emerson Consulting Unavailable Paintsil, Emerson Attending Unavailable White, Patricia Admitting Unavailable Muhammad, Jermain Consulting Unavailable Francis, Carie Consulting Unavailable White, Patricia Admitting Unavailable White, Patricia Attending Unavailable Muhammad, Jermain Consulting Unavailable White, Patricia Consulting Unavailable White, Patricia Admitting Unavailable Muhammad, Jermain Consulting Unavailable Rudi, Ruiz Attending Unavailable Rudi, Ruiz Consulting Unavailable White, Patricia Admitting Unavailable Muhammad, Jermain Consulting Unavailable Rudi, Ruiz Attending Unavailable Francis, Carie Consulting Unavailable Rudi, Ruiz Consulting Unavailable White, Patricia Admitting Unavailable Muhammad, Jermain Consulting Unavailable Paintsil, Emerson Attending Unavailable Francis, Carie Consulting Unavailable Paintsil, Emerson Consulting Unavailable White, Patricia Admitting Unavailable Muhammad, Jermain Consulting Unavailable Paintsil, Emerson Attending Unavailable Francis, Carie Consulting Unavailable Paintsil, Emerson Consulting Unavailable White, Patricia Admitting Unavailable Paintsil, Emerson Attending Unavailable Muhammad, Jermain Consulting Unavailable Francis, Carie Consulting Unavailable Paintsil, Emerson Consulting Unavailable White, Patricia Admitting Unavailable Muhammad, Jermain Consulting Unavailable Paintsil, Emerson Attending Unavailable Francis, Carie Consulting Unavailable Paintsil, Emerson Consulting Unavailable White, Patricia Admitting Unavailable Ruy Onel Attending Unavailable Muhammad, Jermain Consulting Unavailable Francis, Carie Consulting Unavailable Paintsil, Emerson Consulting Unavailable Jordy Redmondy Attending Unavailable Reinaldo Sanchez Attending Unavailable Danny Choi Primary Care Unavailable Danny Choi Primary Care Unavailable Carlitos Ray Attending Unavailable Ky Brush Attending Unavailable Ky Brush Referring Unavailable Danny Choi Primary Care Unavailable Anastacio Mckeon Attending Unavailable Shaun Blancoine Attending Unavailable Danny Choi Primary Care Unavailable PROBLEMS PROBLEMS DATE TYPE CONDITION / CODE ATTENDING STATUS SOURCE 10/11/2017 Admitting Urinary tract DANNY CHOI MD Active [facility] Diagnosis infection, site not Foundation specified / Repository N39.0(ICD-10) 07/21/2017 Admitting Acute kidney FRANCIS, CARIE Active [facility] Diagnosis failure, [facility] unspecified / Hospital N179(ICD-10) Repository 07/21/2017 Principle Acute kidney FRANCIS, CARIE Active [facility] Diagnosis failure, [facility] unspecified / Hospital N179(ICD-10) Repository 07/17/2017 Admitting Fever, unspecified OMRAN, KARRIESSER Active [facility] Diagnosis / R509(ICD-10) [facility] Repository 07/17/2017 Principle Sepsis, unspecified OMRAN, KARRIEKARTHIKER Active [facility] Diagnosis organism / [facility] A419(ICD-10) Hospital Repository 07/17/2017 Secondary Pneumonia, OMRAN, SERGIO Active [facility] Diagnosis unspecified [facility] organism / Hospital J189(ICD-10) Repository 07/17/2017 Secondary Body mass index OMSTEVEN, WANGKRISHNA Active [facility] Diagnosis (BMI) 40.0-44.9, [facility] adult / Hospital Z6841(ICD-10) Repository 07/17/2017 Secondary Hypertensive heart CHANCE SERGIO Active [facility] Diagnosis disease with heart [facility] failure / Hospital I110(ICD-10) Repository 07/17/2017 Secondary Heart failure, OMRAN, SERGIO Active [facility] Diagnosis unspecified / [facility] I509(ICD-10) Hospital Repository 07/17/2017 Secondary Unspecified atrial OMSTEVEN, SERGIO Active [facility] Diagnosis fibrillation / [facility] I4891(ICD-10) Hospital Repository 07/17/2017 Secondary Morbid (severe) OMSERGIO HARRIS Active [facility] Diagnosis obesity due to MD Herrera excess calories / Hospital E6601(ICD-10) Repository 07/17/2017 Secondary Gastro-esophageal CHANCE, SERGIO Active [facility] Diagnosis reflux disease [facility] without esophagitis Hospital / K219(ICD-10) Repository 07/17/2017 Secondary Type 2 diabetes CHANCE, SERGIO Active [facility] Diagnosis mellitus without [facility] complications / Hospital E119(ICD-10) Repository 07/17/2017 Secondary Anemia in other OMRAN, SERGIO Active [facility] Diagnosis chronic diseases [facility] classified Hospital elsewhere / Repository D638(ICD-10) 07/17/2017 Secondary Hypothyroidism, OMRAN, YASSER Active [facility] Diagnosis unspecified / [facility] E039(ICD-10) Hospital Repository 07/17/2017 Secondary Irritable bowel OMRAN, YASSER Active [facility] Diagnosis syndrome without [facility] diarrhea / Hospital K589(ICD-10) Repository 07/17/2017 Secondary Anxiety disorder, OMRAN, YASSER Active [facility] Diagnosis unspecified / [facility] F419(ICD-10) Hospital Repository 07/17/2017 Secondary Other specified OMRAN, YASSER Active [facility] Diagnosis disorders of veins [facility] / I878(ICD-10) Hospital Repository 07/17/2017 Secondary Lymphedema, not OMRAN, YASSER Active [facility] Diagnosis elsewhere [facility] classified / Hospital I890(ICD-10) Repository 07/17/2017 Secondary Gout, unspecified / OMRAN, YASSER Active [facility] Diagnosis M109(ICD-10) [facility] Hospital Repository 07/17/2017 Secondary Allergic rhinitis, OMRAN, YASSER Active [facility] Diagnosis unspecified / [facility] J309(ICD-10) Hospital Repository 07/17/2017 Secondary Hyperlipidemia, OMRAN, YASSER Active [facility] Diagnosis unspecified / [facility] E785(ICD-10) Hospital Repository 07/17/2017 Secondary Edema, unspecified OMRAN, YASSER Active [facility] Diagnosis / R609(ICD-10) [facility] Repository 07/17/2017 Secondary Unspecified OMRAN, YASSER Active [facility] Diagnosis osteoarthritis, [facility] unspecified site / Hospital M1990(ICD-10) Repository 07/17/2017 Secondary MCFP (current) OMRAN, YASSER Active [facility] Diagnosis use of oral [facility] hypoglycemic drugs Hospital / Z7984(ICD-10) Repository 07/17/2017 Secondary Personal history of OMRAN, YASSER Active [facility] Diagnosis urinary calculi / [facility] Z42223(ICD-10) Hospital Repository 07/16/2017 Unknown Z87.442 - Personal [place] Active [facility] history of urinary [facility] calculi / Hospital Z87.442(ICD-10) Repository 06/06/2017 Admitting Cellulitis of LATOUF, BUTROS Active [facility] Diagnosis unspecified part of [facility] P53423(ICD-10) Repository 06/06/2017 Principle Cellulitis of GALLO BULL Active [facility] Diagnosis unspecified part of [facility] U54944(ICD-10) Repository PROCEDURES PROCEDURES No Procedure Records FoundRESULTS RESULTS DISCHARGE SUMMARY Observed: 04/19/2018 Status: F Source: [facility] 8:26 [facility] REPOSITORY [facility] Medical Records Department [address] [place] [address] Discharge Summary 04/18/18 1141 MR#: [id number] Acct: [id number] Name: ARLETTE GUALLPA Rep #: [id number] : 1935 83 From: Ingrid Weiss MD PCP: Danny Choi MD Status: DIS IN Y Location: [place] [address] Discharge Date and Diagnosis Date of Admission: 04/14/18 Date of Discharge: 04/18/18 - Primary Discharge Diagnosis RUBINA on CKD stage IV Hyperkalemia Acute metabolic acidosis Klebsiella UTI Tangela infection, intertrigo and vulvar A. fib with RVR Recent nosebleed Stage II pressure/decubitus ulcer, present on admission - Secondary Discharge Diagnosis Chronic Problems Left nephrolithiasis (Chronic) Hydroureter, left (Chronic) Hydronephrosis, left (Chronic) HTN (hypertension) (Chronic) HLD (hyperlipidemia) (Chronic) Chronic lymphedema (Chronic) Iron deficiency anemia (Chronic) Morbid obesity (Chronic) Chronic venous stasis dermatitis (Chronic) Hospital Course and Treatment Imaging Results: Clinical Impression(s) from Imaging Studies Abdomen/Pelvis CT 04/14/18 14:51 IMPRESSION: Bilateral renal cysts. Nonobstructive right intrarenal calculus. There has been no change since prior study. Electronically Signed: Rojas Henriquez MD at 15:52 EST Tel [phone], Service support , Chest X-Ray 04/14/18 15:20 IMPRESSION: No acute cardiopulmonary process. Electronically Signed: Eve Garcia MD at 23:15 EST Tel , Service support , Consultations 04/14/18 14:30 Consult: Onc/Wound/room service waiter Routine Comment: Reason for Consult:: leg wounds Nephrology - Dr. Blanco Operations: None, - - cystoscopy with stent placement Procedures: 2-D Echocardiogram Summary of Care Provided: 83 year-old female with PMHx of hypertension, hyperlipidemia, morbid obesity, chronic venous stasis admitted with abnormal blood work. She had gone to her PCP with nosebleed and blood work was done that was abnormal and patient was sent here with acute renal failure, metabolic acidosis and hyperkalemia. Her management was as follows: 1. RUBINA on CKD stage 4, secondary to dehydration/hypotension/acute tubular necrosis, admitted with Creatinine of 7.17, BUN 173. She was started on gentle fluids, nephrology consulted. Patient refused dialysis. CT scan of the abdomen and pelvis on admission did not show any obstruction. Her creatinine improved to 2.39. Her Losartan and Lasix were held. 2. Hyperkalemia, potassium was 5.8, improved with treatment of metabolic acidosis, patient was hypokalemic on day of discharge, and treated. Will be followed up with a BMP in the outpatient. 3. Acute metabolic acidosis secondary to #1, admitted with a bicarb level of 9, started on bicarbonate drip, improved, bicarbonate drip was discontinued, bicarb on discharge was 30. Patient will follow up with a primary icu tech. 4. Suspected Klebsiella UTI, initially on cefepime and switch to cefdinir on discharge for a total of 7 days. 5. Stage II pressure ulcer, present on the left gluteal region, present on admission, noted in the nurses admission notes, managed with wound nurse with calmoseptine 6. Tangela, intertrigo and vulval, on nystatin powder and Diflucan. 7. Hypertension, pressure remained stable off blood pressure medications 8. Type 2 DM, home hypoglycemic agent was held, as blood sugars are running low, managed on insulin sliding scale, discharged with Dilaudid 9. Chronic iron deficiency anemia, on po iron 10. Hyperlipidemia, on statin 11. Hypothyroidism, on levothyroxine 12. Chronic Atrial fibrillation, rate controlled, had an episode of RVR, improved with IV metoprolol. Her Eliquis had been held on admission because of prior nosebleeds, was not on any anticoagulation, resumed on her metoprolol, her heart rate was controlled. 13. Recent nosebleed, off Eliquis, aspirin. Subjective: On the day of discharge, patient felt improved, edema of the lower extremities is improving with Taylor wrapping. No other events overnight. No AV with RVR. Objective: Physical exam: General: Alert, Oriented x3, Cooperative, No apparent distress, feeling better HEENT: Atraumatic, PERRLA, EOMI, Normocephalic Oral: Moist Mucosa Neck: Supple, No JVD, Negative Carotid Bruits Lungs: Normal air movement, Diminished Cardiovascular: Regular rate, Regular Rhythm, Normal S1, Normal S2, Tachycardic Abdomen: Bowel Sounds Present, Soft, Non Tender, Non-Distended, No Hepato-splenomegaly, 3cm by 2cm stage 2 pressure ulcer on the left gluteal region Extremities: Edema - +2-3, TAYLOR-wrap to both legs. Skin: No rashes, No breakdown Musculoskeletal: No Tenderness to Palpation of Joints or Extremities Lymphatic: No Cervical, Supraclavicular, or Inguinal Adenopathy Neurological: Cranial nerves II-XII grossly intact, Neuro grossly intact, - - No flapping tremors. Psych/Mental Status: Normal Affect, Appropriate - Physical Exam Vital Signs Temp Pulse Resp BP Pulse Ox 98.0 F 74 16 117/51 L 94 04/18/18 08:08 04/18/18 09:01 04/18/18 08:08 04/18/18 08:08 04/18/18 08:08 Oxygen Delivery Method Room Air Weight: 84 kg Body Mass Index (BMI) 35.1 Finger Stick Blood Glucose 119 Intake and Output for Last 24 Hours Intake Total 3424 / 3424 1423 / 1423 360 / 360 Output Total 1425 / 1425 450 / 450 200 / 200 Balance 1998 973 / 973 160 / 160 Microbiology Past 72 Hours 04/14/18 17:20 Gram Stain - Final Laboratory Tests Past 24 Hrs WBC 7.3 RBC 2.80 L Hgb 8.8 L Hct 28.0 L MCV 100.0 H MCH 31.4 POC Glucose POC Glucose 175 H 243 H 261 H POC Glucose 255 H Discharge Diet: Low fat/ Low Cholesterol, 2000 mg Sodium Diet, Carb Control Diet Discharge Activity: Return to Normal Activity Home Medications: Medications to take at Discharge Atorvastatin Calcium [Lipitor] 10 mg PO DAILY 06/20/17 Ferrous Sulfate 325 mg PO BID 06/20/17 Levothyroxine [Synthroid] 137 mcg PO DAILY 06/20/17 Multivit-Min/FA/Lycopen/Lutein [Centrum Silver Tablet] 1 each PO DAILY 06/20/17 Omeprazole [Prilosec] 20 mg PO DAILY 06/20/17 Allopurinol 100 mg PO QHS 04/15/18 Metoprolol Tartrate [Lopressor (beta norm)] 25 mg PO BID 04/15/18 Acetaminophen [Tylenol] 1,000 mg PO TID tablet 04/18/18 Cefdinir [Omnicef [equiv]] 300 mg PO DAILY #3 capsule 04/18/18 Insulin Lispro [Humalog KwikPen] See Protocol SC ACHS insuln.pen 04/18/18 Menthol/Lanolin/Calamine/Znox [Calmoseptine Ointment] 1 applic TOPICAL BID tube 04/18/18 Nystatin [Mycostatin] 1 applic TOPICAL TID tube 04/18/18 Following Prescrptions Were Given to Patient: Cefdinir [Omnicef [equiv]] 300 mg PO DAILY #3 capsule Primary Care Physician: Danny Choi MD [Primary Care Provider] - Please follow up with your Primary Care Physician in: within 1-2 weeks of discharge Please Follow Up With: Carie Blanco DO When: within 1-2 weeks for repeat blood work and follow-up Disposition: Shelter facility Minutes spent on discharge:: 55 Patient Condition:: Fair Medical Necessity - Tobacco Use Smoking Status: Never smoker Tobacco Use: Non-smoker Meaningful Use Info Meaningful Use Diagnoses (Choose all that apply): None applicable Code Visit Inpatient E AND M: 20903 Disch Hosp 04/19/18 08 <Electronically signed by Ingrid Weiss MD> Date Ingrid Weiss MD Cosigner Signature (if applicable): Date CC: Ingrid Weiss MD; Danny Choi MD Signed BEDSIDE GLUCOSE Collected: 04/18/2018 Status: F Source: [place] 11:52 AM [facility] REPOSITORY TYPE CODE TESTS RESULT OUT OF REFERENCE UNITS RANGE LAB L501.080 70-110 mg/dL High BEDSIDE GLU 322 Result Comment: MANAGEMENT OF PATIENT CARE PER NURSING PROTOCOL Performed By: #### L501.080 #### [facility] Point of Care [address] [place] [address] TRANSFER TO [facility] Observed: 04/18/2018 Status: F Source: [facility] 11:38 AM [facility] REPOSITORY [facility] Medical Records Department [address] [place] [address] Transfer to [facility] Care MR#: [id number] Acct: [id number] Name: ARLETTE GUALLPA Rep #: [id number] : 1935 83 From: Ingrid Weiss MD PCP: Danny Choi MD Status: ADM IN ARLETTE GUALLPA (Patient) (Health Ins. Claim No.) (Day of Discharge to Facility) Certification of patient admission REQUIRED AT TIME OF ADMISSION. I CERTIFY THAT POST-HOSPITAL ECF SERVICES ARE REQUIRED TO BE GIVEN ON AN IN-PATIENT BASIS BECAUSE OF THE ABOVE NAMED PATIENT'S NEED FOR RESIDENTIAL CARE ON A CONTINUING BASIS FOR THE CONDITION(S) FOR WHICH HE/SHE WAS RECEIVING IN-PATIENT HOSPITAL SERVICES PRIOR TO HIS/HER TRANSFER TO THE [facility]. 04/18/18 1138 <Electronically signed by Ingrid Weiss MD> Date Ingrid Weiss MD - Diet 04/14/18 14:29 Diet: Renal: 60 gm protein Food consistency:: Regular Liquid Consistency:: Regular/Thin Is pt able to select menu?: Yes - Routine Orders/Code Status Routine Lab Work: CBC - within 3 day, BMP - within 3 days Code Status: Full Code - Wound(s) BLE Wound Type: scattered weeping areas Dressing Change: Adaptic Bridge of nose Wound Type: Abrasion R Buttock Wound Type: Pressure Injury Left Buttock Wound Type: Pressure Injury - Therapies Weight Bearing: Weight bearing as tolerated Physical Therapy: Eval and Treat Occupational Therapy: Eval and Treat - Allergies/Procedures Done in Hospital Allergies/Adverse Reactions: Allergies lisinopril Adverse Reaction (Verified 07/14/17 13:17) Other COUGH Procedures: 2-D Echocardiogram - Type of Care/Length of Stay Estimated LOS: Convalescent Care Less Than 30 days Type of Care Needed: Inpt Hospice Facility Rehab Potential: Fair Prognosis: Fair - Additional Orders/Day of Discharge Day of Discharge: 04/18/18 - Dietary and Speech Recommendations Dietitian Recommendations/Changes: Recommend continue Renal diet as ordered. Recommend Nishant 1 pkt BID--order from pharmacy. - Follow Up Care Primary Care Physician: Danny Choi MD [Primary Care Provider] - Please follow up with your Primary Care Physician in: within 1-2 weeks of discharge Please Follow Up With: Carie Blanco DO When: within 1-2 weeks for repeat blood work and follow-up 04/18/18 1138 <Electronically signed by Ingrid Weiss MD> Date Ingrid Wiess MD CC: Carie Blanco DO; Danny Choi MD Signed BEDSIDE GLUCOSE Collected: 04/18/2018 Status: F Source: BLANK 6:48 AM [facility] REPOSITORY TYPE CODE TESTS RESULT OUT OF REFERENCE UNITS RANGE LAB L501.080 70-110 mg/dL High BEDSIDE GLU 175 Result Comment: MANAGEMENT OF PATIENT CARE PER NURSING PROTOCOL Performed By: #### L501.080 #### [facility] Point of Care [address] [place] [address] CBC-COMPLETE BLOOD CNT Collected: 04/18/2018 Status: F Source: BLANK NO DIFF 6:37 AM [facility] REPOSITORY TYPE CODE TESTS RESULT OUT OF RANGE REFERENCE UNITS LAB L100.1000 4.4-11.0 K/mm3 Normal WBC 7.3 LAB L100.1200 4.2-5.4 M/mm3 Low RBC 2.80 LAB L100.1300 12.0-15.0 g/dl Low HGB 8.8 LAB L100.1400 37-47 % Low HCT 28.0 LAB L100.1500 81-99 fL High MCV 100.0 LAB L100.1600 27.0-32.0 pg Normal MCH 31.4 LAB L100.1700 32-36 g/gl Low MCHC 31.4 LAB L100.1810 11.6-14.6 % High RDW CV 15.1 LAB L100.1820 35.1-43.9 fl High RDW SD 55.1 LAB L100.1900 150-450 K/mm3 Normal PLT 202 LAB L100.2000 6.2-12.0 fl Normal MPV 9.6 Performed By: #### L100.0500 #### [facility] [address] [place], [address] RENAL PROFILE Collected: 04/18/2018 Status: F Source: NEOSHO 6:37 AM [facility] REPOSITORY TYPE CODE TESTS RESULT OUT OF RANGE REFERENCE UNITS LAB L501.0100 74-106 mg/dL High GLU 169 Result Comment: Fasting Glucose result greater than or equal to 126 mg/dL suggests DIABETES MELLITUS per A.D.A. criteria. Please note revised GLUCOSE reference range effective 2017. LAB L501.1000 7-18 mg/dL High BUN 87 LAB L501.1100 0.55-1.02 mg/dL High CREAT,SERUM 2.39 Result Comment: The validity of the calculated GFR AND GFRAA in patients over 70 years has not been determined. Clinical correlation is essential. LAB L501.1110 >60 mL/min Low EST GFR 21 Result Comment: Non- GFR Calc LAB L501.1115 >60 mL/min Low EST GFR - AA 25 Result Comment: GFR Calc LAB L501.1255 ml/min Normal Estimated CRCL 13.46 LAB L501.1300 10-20 RATIO High BUN/CRE 36.4 LAB L501.1800 3.2-5. g/dL Low 0 ALB 2.0 LAB L501.2200 8.5-10 mg/dL Normal .1 CA 8.6 LAB L501.2300 2.5-4. mg/dL Normal 9 PHOS 3.2 LAB L501.5300 136-14 mmol/L Normal 5 NA 140 LAB L501.5600 3.5-5. mmol/L Low 1 K 3.4 LAB L501.5900 98-107 mmol/L Normal CL 99 LAB L501.6100 21.0-3 mmol/L Normal 2.0 CO2 30.0 Performed By: #### L500.3600 #### [facility] [address] [facility] [address] BEDSIDE GLUCOSE Collected: 04/17/2018 Status: F Source: BLANK 9:26 PM [facility] REPOSITORY TYPE CODE TESTS RESULT OUT OF REFERENCE UNITS RANGE LAB L501.080 70-110 mg/dL High BEDSIDE GLU 243 Result Comment: MANAGEMENT OF PATIENT CARE PER NURSING PROTOCOL Performed By: #### L501.080 #### [facility] Point of Care [address] [place] [address] BEDSIDE GLUCOSE Collected: 04/17/2018 Status: F Source: BLANK 4:59 PM [facility] REPOSITORY TYPE CODE TESTS RESULT OUT OF REFERENCE UNITS RANGE LAB L501.080 70-110 mg/dL High BEDSIDE GLU 261 Result Comment: MANAGEMENT OF PATIENT CARE PER NURSING PROTOCOL Performed By: #### L501.080 #### [facility] Point of Care [address] [place], [place] [address] BEDSIDE GLUCOSE Collected: 04/17/2018 Status: F Source: BLANK 12:31 PM [facility] REPOSITORY TYPE CODE TESTS RESULT OUT OF REFERENCE UNITS RANGE LAB L501.080 70-110 mg/dL High BEDSIDE GLU 255 Result Comment: MANAGEMENT OF PATIENT CARE PER NURSING PROTOCOL Performed By: #### L501.080 #### [facility] Point of Care [address] [place] [address] BEDSIDE GLUCOSE Collected: 04/17/2018 Status: F Source: BLANK 6:53 AM [facility] REPOSITORY TYPE CODE TESTS RESULT OUT OF REFERENCE UNITS RANGE LAB L501.080 70-110 mg/dL High BEDSIDE GLU 218 Result Comment: MANAGEMENT OF PATIENT CARE PER NURSING PROTOCOL Performed By: #### L501.080 #### [facility] Point of Care [address] [place] [address] RENAL PROFILE Collected: 04/17/2018 Status: F Source: BLANK 6:25 AM [facility] REPOSITORY TYPE CODE TESTS RESULT OUT OF RANGE REFERENCE UNITS LAB L501.0100 74-106 mg/dL High GLU 233 Result Comment: Glucose result greater than or equal to 200 mg/dL suggests DIABETES MELLITUS per A.D.A. criteria. Please note revised GLUCOSE reference range effective 2017. LAB L501.1000 7-18 mg/dL High alert BUN 105 Result Comment: Critical Result(s) Called at: 07:32:32 04/17/2018 by: Maria Fernanda Gonsales to [facility] LAB L501.1100 0.55-1.02 mg/dL CREAT,SERUM High 2.91 Result Comment: The validity of the calculated GFR AND GFRAA in patients over 70 years has not been determined. Clinical correlation is essential. LAB L501.1110 >60 mL/min Low EST GFR 16 Result Comment: Non- GFR Calc LAB L501.1115 >60 mL/min Low EST GFR - AA 20 Result Comment: GFR Calc LAB L501.1255 ml/min Normal Estimated CRCL 11.05 LAB L501.1300 10-20 RATIO High BUN/CRE 36.1 LAB L501.1800 3.2-5. g/dL Low 0 ALB 2.1 LAB L501.2200 8.5-10 mg/dL Low .1 CA 8.1 LAB L501.2300 2.5-4. mg/dL Normal 9 PHOS 3.8 LAB L501.5300 136-14 mmol/L Normal 5 NA 136 LAB L501.5600 3.5-5. mmol/L Normal 1 K 3.7 LAB L501.5900 98-107 mmol/L Normal CL 99 LAB L501.6100 21.0-3 mmol/L Normal 2.0 CO2 27.0 Performed By: #### L500.3600 #### [facility] [address] [place], [address] BEDSIDE GLUCOSE Collected: 04/16/2018 Status: F Source: BLANK 10:16 PM [facility] REPOSITORY TYPE CODE TESTS RESULT OUT OF REFERENCE UNITS RANGE LAB L501.080 70-110 mg/dL High BEDSIDE GLU 289 Result Comment: MANAGEMENT OF PATIENT CARE PER NURSING PROTOCOL Performed By: #### L501.080 #### [facility] Point of Care [address] [place] [address] BEDSIDE GLUCOSE Collected: 04/16/2018 Status: F Source: BLANK 4:59 PM [facility] REPOSITORY TYPE CODE TESTS RESULT OUT OF REFERENCE UNITS RANGE LAB L501.080 70-110 mg/dL High BEDSIDE GLU 274 Result Comment: Insulin Given MANAGEMENT OF PATIENT CARE PER NURSING PROTOCOL Performed By: #### L501.080 #### [facility] Point of Care [address] [place] [address] BEDSIDE GLUCOSE Collected: 04/16/2018 Status: F Source: BLANK 12:11 PM [facility] REPOSITORY TYPE CODE TESTS RESULT OUT OF REFERENCE UNITS RANGE LAB L501.080 70-110 mg/dL High BEDSIDE GLU 249 Result Comment: Insulin Given MANAGEMENT OF PATIENT CARE PER NURSING PROTOCOL Performed By: #### L501.080 #### [facility] Point of Care [address] [place] [address] BEDSIDE GLUCOSE Collected: 04/16/2018 Status: F Source: BLANK 6:54 AM [facility] REPOSITORY TYPE CODE TESTS RESULT OUT OF REFERENCE UNITS RANGE LAB L501.080 70-110 mg/dL High BEDSIDE GLU 169 Result Comment: MANAGEMENT OF PATIENT CARE PER NURSING PROTOCOL Performed By: #### L501.080 #### [facility] Point of Care [address] [place] [address] RENAL PROFILE Collected: 04/16/2018 Status: F Source: BLANK 5:35 AM [facility] REPOSITORY TYPE CODE TESTS RESULT OUT OF RANGE REFERENCE UNITS LAB L501.0100 74-106 mg/dL High GLU 175 Result Comment: Fasting Glucose result greater than or equal to 126 mg/dL suggests DIABETES MELLITUS per A.D.A. criteria. Please note revised GLUCOSE reference range effective 2017. LAB L501.1000 7-18 mg/dL High alert BUN 129 Result Comment: Critical Result(s) Called at: 07:27:06 04/16/2018 by: Maria Fernanda Gonsales to [facility] LAB L501.1100 0.55-1.02 mg/dL CREAT,SERUM High 4.05 Result Comment: The validity of the calculated GFR AND GFRAA in patients over 70 years has not been determined. Clinical correlation is essential. LAB L501.1110 >60 mL/min Low EST GFR 11 Result Comment: Non- GFR Calc LAB L501.1115 >60 mL/min Low EST GFR - AA 14 Result Comment: GFR Calc LAB L501.1255 ml/min Normal Estimated CRCL 7.94 LAB L501.1300 10-20 RATIO High BUN/CRE 31.9 LAB L501.1800 3.2-5.0 g/dL Low ALB 2.0 LAB L501.2200 8.5-10. mg/dL Low 1 CA 8.2 LAB L501.2300 2.5-4.9 mg/dL Normal PHOS 4.5 LAB L501.5300 136-145 mmol/L Normal NA 139 LAB L501.5600 3.5-5.1 mmol/L Normal K 3.8 LAB L501.5900 98-107 mmol/L Normal CL 103 LAB L501.6100 21.0-32 mmol/L Normal .0 CO2 24.0 Performed By: #### L500.3600 #### [facility] [address] [place], [place], [address] BEDSIDE GLUCOSE Collected: 04/15/2018 Status: F Source: BLANK 9:44 PM [facility] REPOSITORY TYPE CODE TESTS RESULT OUT OF REFERENCE UNITS RANGE LAB L501.080 70-110 mg/dL High BEDSIDE GLU 189 Result Comment: MANAGEMENT OF PATIENT CARE PER NURSING PROTOCOL Performed By: #### L501.080 #### [facility] Point of Care [address] [facility] [place], [place] [address] BEDSIDE GLUCOSE Collected: 04/15/2018 Status: F Source: BLANK 4:47 PM [facility] REPOSITORY TYPE CODE TESTS RESULT OUT OF REFERENCE UNITS RANGE LAB L501.080 70-110 mg/dL High BEDSIDE GLU 122 Result Comment: MANAGEMENT OF PATIENT CARE PER NURSING PROTOCOL Performed By: #### L501.080 #### [facility] Point of Care [address] [place] [address] ECHO, COMPLETE W/ Observed: 04/15/2018 Status: F Source: NEOSHO CONTRAST 12:40 PM [facility] REPOSITORY [facility] Cardiovascular Services [address] [place] [address] Echo Complete W/ Contrast 04/15/18 0913 MR#: [id number] Acct: [id number] Name: ARLETTE GUALLPA Rep #: [id number] : 1935 83 From: Anastacio Mckeon MD Attending Dr: Ingrid Weiss MD Status: ADM IN Ordering Dr: Quincy Carter MD Date: 04/14/18 Location: [facility] Sex: F C Admitted: 04/14/18 Reason For Study: HTN Procedure This was a 2D Doppler, Color Flow transthoracic echocardiogram. Exam performed portable in patient room. Left Ventricle Normal LV size. Left ventricular systolic function is normal. The estimated ejection fraction is 65 %. Stage 1 diastolic dysfunction. No regional wall motion abnormalities noted. Right Ventricle Normal RV size. Normal systolic function. Atria Normal left atrium. Normal right atrium. Mitral Valve Normal mitral valve. Tricuspid Valve Normal tricuspid valve. Aortic Valve Trisinus/trileaflet aortic valve. Mild focal aortic valve calcification. Peak aortic valve gradient 24 mmHg. Mean aortic valve gradient 13 mmHg. Mild aortic stenosis. Pulmonic Valve Normal pulmonic valve. Great Vessels Normal aortic root. The pulmonary artery is normal size. Normal inferior vena cava. Pericardium/Pleural No pericardial effusion. Medication Diluted definity 2.5ml given slow IV push to enhance endocardial definition. MMode/2D Measurements AND Calculations LVIDd: 3.8 cm IVSd: 0.96 cm LVOT diam: 2.0 cm LVIDs: 2.2 cm LVPWd: 1.1 cm RVDd: 2.9 cm FS: 40.7 % LVOT area: 3.0 cm2 Ao root diam: 3.7 cm LAV(MOD-bp): 56.9 ml LA A4 area: 19.7 cm2 LAV(MOD-bp) Indexed: 31.1 ml/m2 LAV(MOD-sp2): 56.2 ml LAV(MOD-sp4): 50.8 ml LA dimension(2D): 3.4 cm RA A4 area: 9.4 cm2 Doppler Measurements AND Calculations MV E max leland: 69.1 cm/sec Lat Peak E' Leland: 8.4 cm/sec Med Peak E' Leland: 3.9 cm/sec MV A max leland: 111.2 cm/sec E/E' lat: 8.2 E/E' med: 17.8 MV E/A: 0.62 Ao V2 max: 246.1 cm/sec AI max leland: 360.7 cm/sec LV V1 max: 171.5 cm/sec Ao max P.2 mmHg AI max P.0 mmHg LV V1 max P.8 mmHg Ao V2 mean: 165.5 cm/sec AI dec slope: 223.0 cm/sec2 LV V1 mean P.1 mmHg Ao mean P.9 mmHg AI P1/2t: 473.6 msec LV V1 mean: 114.6 cm/sec Ao V2 VTI: 46.1 cm LV V1 VTI: 31.0 cm KIRILL(I,D): 2.0 cm2 KIRILL(V,D): 2.1 cm2 SV(LVOT): 92.8 ml PA V2 max: 158.2 cm/sec TR max leland: 262.8 cm/sec TR max P.6 mmHg Interpretation Summary Normal LV size. Left ventricular systolic function is normal. The estimated ejection fraction is 65 %. Stage 1 diastolic dysfunction. Mean aortic valve gradient 13 mmHg. Mild aortic stenosis. Contrast injection was performed. Ordering Physician: Quincy Carter Referring Physician: Mac Emery Performed By: Natasha Roth RDCS 04/15/18 1239 Date Anastacio Mckeon MD CC: Ingrid Weiss MD; Quincy Carter; Danny Choi MD; Mac Emery MD Date Dictated: 04/15/18912 Date Transcribed: 04/15/18 123 Handkerchief Cutter: Signed BEDSIDE GLUCOSE Collected: 04/15/2018 Status: F Source: BLANK 11:35 AM [facility] REPOSITORY TYPE CODE TESTS RESULT OUT OF RANGE REFERENCE UNITS LAB L501.080 70-110 mg/dL Normal BEDSIDE GLU 78 Result Comment: MANAGEMENT OF PATIENT CARE PER NURSING PROTOCOL Performed By: #### L501.080 #### [facility] Point of Care [address] [place] [address] BEDSIDE GLUCOSE Collected: 04/15/2018 Status: F Source: BLANK 6:59 AM [facility] REPOSITORY TYPE CODE TESTS RESULT OUT OF REFERENCE UNITS RANGE LAB L501.080 70-110 mg/dL Low BEDSIDE GLU 63 Result Comment: MANAGEMENT OF PATIENT CARE PER NURSING PROTOCOL Performed By: #### L501.080 #### [facility] Point [place] [address] CBC W/DIFF, AUTOMATED Collected: 04/15/2018 Status: F Source: BLANK 5:40 AM [facility] REPOSITORY TYPE CODE TESTS RESULT OUT OF RANGE REFERENCE UNITS LAB L100.1000 4.4-11.0 K/mm3 Normal WBC 8.4 LAB L100.1200 4.2-5.4 M/mm3 Low RBC 2.78 LAB L100.1300 12.0-15.0 g/dl Low HGB 8.9 LAB L100.1400 37-47 % Low HCT 26.4 LAB L100.1500 81-99 fL Normal MCV 95.0 LAB L100.1600 27.0-32.0 pg Normal MCH 32.0 LAB L100.1700 32-36 g/gl Normal MCHC 33.7 LAB L100.1810 11.6-14.6 % Normal RDW CV 14.2 LAB L100.1820 35.1-43.9 fl High RDW SD 46.9 LAB L100.1900 150-450 K/mm3 Normal PLT 225 LAB L100.2000 6.2-12.0 fl Normal MPV 9.8 LAB L100.2100 47-70 % High NEUT% 82.0 LAB L100.2200 19-41 % Low LY% 7.6 LAB L100.2300 0-10 % Normal MONO% 9.1 LAB L100.2400 0-5 % Normal EO% 0.7 LAB L100.2500 0-1 % Normal BASO% 0.2 LAB L100.2550 0.0-0.9 % Normal IM GRAN % 0.400 Result Comment: IG% - Immature Granulocytes (promyelocytes, myelocytes and metamyelocytes) > 1% indicates that a LEFT SHIFT is Present. LAB L100.2620 2.0-7.7 X10 3/uL Normal Absolute Neut 6.9 LAB L100.2720 0.83-4.51 X10 3/ul Low Absolute Lymph 0.64 Performed By: #### L100.0100 #### [facility] [address] [place], [address] PHOSPHORUS Collected: 04/15/2018 Status: F Source: NEOSHO 5:40 AM [facility] REPOSITORY TYPE CODE TESTS RESULT OUT OF RANGE REFERENCE UNITS LAB L501.2300 2.5-4.9 mg/dL High PHOS 6.6 Performed By: #### L501.2300 #### [facility] [address] [place], [address] COMPREHENSIVE METABOLIC Collected: 04/15/2018 Status: F Source: [facility] 5:40 AM [facility] REPOSITORY TYPE CODE TESTS RESULT OUT OF RANGE REFERENCE UNITS LAB L501.0100 74-106 mg/dL Low GLU 62 Result Comment: Please note revised GLUCOSE reference range effective 2017. LAB L501.1000 7-18 mg/dL High alert BUN 162 Result Comment: Critical Result(s) Called at: 07:05:41 04/15/2018 by: Dalton Singletary to Marianela Hoff RN ([facility]). LAB L501.1100 0.55-1.02 mg/dL CREAT,SERUM High 6.34 Result Comment: The validity of the calculated GFR AND GFRAA in patients over 70 years has not been determined. Clinical correlation is essential. LAB L501.1110 >60 mL/min Low EST GFR 7 Result Comment: Non- GFR Calc LAB L501.1115 >60 mL/min Low EST GFR - AA 8 Result Comment: GFR Calc LAB L501.1255 ml/min Normal Estimated CRCL 5.07 LAB L501.1300 10-20 RATIO High BUN/CRE 25.6 LAB L501.1500 6.4-8.2 g/dL Low T PROT 6.1 LAB L501.1800 3.2-5.0 g/dL Low ALB 2.3 LAB L501.1950 2.2-4.2 g/dL Normal GLOB 3.8 LAB L501.2000 0.9-2.4 RATIO Low A/G 0.6 LAB L501.2200 8.5-10. mg/dL Normal 1 CA 8.6 LAB L501.4100 15-37 U/L Normal AST 28 LAB L501.4305 45-117 U/L Normal ALK P 73 LAB L501.4405 13-56 U/L Normal ALT 16 LAB L501.4600 0.20-1. mg/dL Normal 00 T BILI 0.20 LAB L501.5300 136-145 mmol/L Normal NA 138 LAB L501.5600 3.5-5.1 mmol/L Normal K 4.4 LAB L501.5900 98-107 mmol/L High CL 109 LAB L501.6100 21.0-32 mmol/L Low .0 CO2 12.0 LAB L501.6200 5-15 High GAP 17 Performed By: #### L500.4050 #### [facility] [address] [facility] [address] BEDSIDE GLUCOSE Collected: 04/15/2018 Status: F Source: BLANK 2:44 AM [facility] REPOSITORY TYPE CODE TESTS RESULT OUT OF RANGE REFERENCE UNITS LAB L501.080 70-110 mg/dL Normal BEDSIDE GLU 102 Result Comment: MANAGEMENT OF PATIENT CARE PER NURSING PROTOCOL Performed By: #### L501.080 #### [facility] Point of Care [address] [facility] [address] BEDSIDE GLUCOSE Collected: 04/14/2018 Status: F Source: BLANK 11:30 PM [facility] REPOSITORY TYPE CODE TESTS RESULT OUT OF RANGE REFERENCE UNITS LAB L501.080 70-110 mg/dL Normal BEDSIDE GLU 70 Result Comment: MANAGEMENT OF PATIENT CARE PER NURSING PROTOCOL Performed By: #### L501.080 #### [facility] Point of Care [address] [facility] [place] [address] BEDSIDE GLUCOSE Collected: 04/14/2018 Status: F Source: BLANK 10:55 PM [facility] REPOSITORY TYPE CODE TESTS RESULT OUT OF REFERENCE UNITS RANGE LAB L501.080 70-110 mg/dL Low BEDSIDE GLU 47 Result Comment: MANAGEMENT OF PATIENT CARE PER NURSING PROTOCOL Performed By: #### L501.080 #### [facility] Point of Care [address] [place] [address] BASIC METABOLIC Collected: 04/14/2018 Status: F Source: BLANK PROFILE (BMP) 9:50 PM [facility] REPOSITORY TYPE CODE TESTS RESULT OUT OF RANGE REFERENCE UNITS LAB L501.0100 74-106 mg/dL Low GLU 59 Result Comment: Please note revised GLUCOSE reference range effective 2017. LAB L501.1000 7-18 mg/dL High alert BUN 171 Result Comment: Critical Result(s) Called at: 22:29:52 04/14/2018 by: CR HARTMAN IN PCU LAB L501.1100 0.55-1.02 mg/dL CREAT,SERUM High 6.93 Result Comment: The validity of the calculated GFR AND GFRAA in patients over 70 years has not been determined. Clinical correlation is essential. LAB L501.1110 >60 mL/min Low EST GFR 6 Result Comment: Non- GFR Calc LAB L501.1115 >60 mL/min Low EST GFR - AA 7 Result Comment: GFR Calc LAB L501.1255 ml/min Normal Estimated CRCL 4.64 LAB L501.1300 10-20 RATIO High BUN/CRE 24.7 LAB L501.2200 8.5-10. mg/dL Low 1 CA 8.4 LAB L501.5300 136-145 mmol/L Normal NA 136 LAB L501.5600 3.5-5.1 mmol/L High K 5.3 LAB L501.5900 98-107 mmol/L High CL 111 LAB L501.6100 21.0-32 mmol/L Low .0 CO2 alert 8.0 Result Comment: Critical Result(s) Called at: 22:29:52 04/14/2018 by: CR HARTMAN IN PCU LAB L501.6200 5-15 High GAP 17 Performed By: #### L500.2500 #### [facility] [address] [place], [address] BLOOD GASES BY CPS Collected: 04/14/2018 Status: F Source: BLANK 8:51 PM [facility] REPOSITORY TYPE CODE TESTS RESULT OUT OF RANGE REFERENCE UNITS LAB L9000.9990 Normal BLD GAS TYPE ART LAB L9001.1000 Normal SITE L Radial LAB L9001.1010 Normal ILAN TEST POS LAB L9001.1050 O2 Normal Delivery Dev Room Air LAB L9001.1104 Normal Results To HOSP MD LAB L9001.1105 Normal Time Given 2044 LAB L9001.1110 7.35-7.45 Low pH alert - I-STAT 7.17 LAB L9001.1210 35-45 mmHg Low pCO2 - ISTAT 20.3 LAB L9001.1310 75-100 mmHG Normal PO2 I-STAT 96 LAB L9001.2300 22-26 mmol/L Low HCO3 ISTAT 7.5 LAB L9001.2400 -2 to +2 mmol/L Low BE ISTAT -21 LAB L9001.2415 mmol/L Normal TOTAL CO2 8 ISTAT LAB L9001.2425 95-99 % Normal SO2 ISTAT 96 Performed By: #### L9000.0800 #### [facility] Point of Care [address] [place] [address] HISTORY AND PHYSICAL Observed: 04/14/2018 Status: F Source: [place]OS[place] EXAM 7:34 PM [facility] REPOSITORY [facility] Medical Records Department [address] [facility] [place] [address] History and Physical 04/14/18 1455 MR#: [id number] Acct: [id number] Name: ARLETTE GUALLPA Rep #: [id number] : 1935 83 From: Quincy Carter MD PCP: Danny Choi MD Status: ADM IN Location: [place] [address] Problem List (1) Left nephrolithiasis Status: Chronic (2) Hydroureter, left Status: Chronic (3) HTN (hypertension) Status: Chronic Qualifiers: (4) HLD (hyperlipidemia) Status: Chronic Qualifiers: (5) Chronic lymphedema Status: Chronic (6) Iron deficiency anemia Status: Chronic Qualifiers: (7) Morbid obesity Status: Chronic (8) Chronic venous stasis dermatitis Status: Chronic History of Present Illness Date of Admission: 04/14/18 Chief Complaint: Direct admit from outside facility. The patient is a 83 year old F with past medical history as mentioned above directly admitted from outside facility for acute renal failure and hyperkalemia. At this time, patient is not able to provide good history because she is sick, has been throwing up and feeling very weak. Patient's son was at the bedside and they provide most of the information. Patient went to see her PCP yesterday because she had a nosebleed as she has been on Eliquis for history of chronic atrial fibrillation. She had a blood work done and her son took her to the emergency department at another hospital because of weakness, nausea and vomiting. The patient complains of nausea and vomiting for the last several days. She denied abdominal pain, constipation or diarrhea. She reports dysuria and decreased urine output. She denied chest pain or shortness of breath. She had blood work done at the outside facility today reportedly, her creatinine was 8.3. Yesterday, she had a blood work done as outpatient and her BUN was 172 and creatinine was 7.12. Late May,, patient had left ureteral kidney stone with obstruction, hydronephrosis and hydroureter and she underwent cystoscopy with placement of left ureteral stent. During that admission, she was found to have acute kidney injury secondary to obstructive uropathy that was treated with IV fluids and her kidney function improved. She had a history of type 2 diabetes mellitus and she has been on oral hypoglycemic drugs and most recent A1c was back on May, and it was 6.5. She had a history of hypertension which seems to be under control with Norvasc, metoprolol and Lasix. She had a history of iron deficiency anemia, has been on iron supplement and her hemoglobin yesterday was 16.2 g/dL. At this time, she is afebrile, blood pressure is 94/40, pulse ox is 95% on room air. Routine blood work from yesterday April 13, 2018 reviewed and remarkable for sodium of 128, potassium of 6.4, serum bicarb of 12, BUN of 172 and creatinine of 7.12. LFT was normal. Lactic acid was 10.4. EKG that was done today at the outside facility revealed A. fib, rate is controlled, RBBB, no acute ischemic changes. She is being admitted for acute renal failure, hyperkalemia and metabolic acidosis probably due to lactic acidosis. Past Medical History Past Medical History (Chronic Problems): Chronic Problems Left nephrolithiasis (Chronic) Hydroureter, left (Chronic) Hydronephrosis, left (Chronic) HTN (hypertension) (Chronic) HLD (hyperlipidemia) (Chronic) Chronic lymphedema (Chronic) Iron deficiency anemia (Chronic) Morbid obesity (Chronic) Chronic venous stasis dermatitis (Chronic) Allergies lisinopril Adverse Reaction (Verified 07/14/17 13:17) Other COUGH Home Medications: Ambulatory Orders Medication Instructions Recorded Aspirin [Aspirin, Baby] 81 mg PO DAILY@0800 06/20/17 Atorvastatin Calcium [Lipitor] 10 mg PO QHS 06/20/17 Ferrous Sulfate 325 mg PO BID 06/20/17 Surgical History: no surgical history, - - Denies any surgical history. Psychiatric History: No pertinent psych hx Lives: With Family Smoking Status: Never smoker Alcohol: None Drugs: None - *Family History Maternal History Items: - - She denies any marked maternal or paternal family history including heart disease, diabetes, cancer. Paternal History Items: - - She denies any marked maternal or paternal family history including heart disease, diabetes, cancer. Sibling History Items: Cancer Review of Systems Constitutional: Reports: Anorexia, Weakness, Fatigue. Denies: Chills, Fever Eyes: Denies: Blurred vision, Double vision, Drainage, Redness HEENT: Denies: Difficulty Hearing, Ear Pain, Eye Pain, Nasal Congestion, Sore Throat Cardiovascular: Reports: Edema. Denies: Chest Pain, Chest Pressure, Chest Tightness, Palpitations, Syncope Respiratory: Denies: Cough, Pleuritic Pain, Shortness of Breath, Sputum production, Wheezing Gastrointestinal: Reports: Nausea, Vomiting. Denies: Abdominal Pain, Constipation, Diarrhea Genitourinary: Reports: Dysuria. Denies: Frequency, Hematuria Musculoskeletal: Denies: Arm Pain, Back Pain Skin: Denies: Dryness, Jaundice Neurological: Denies: Balance problems, Double vision, Change in Speech, Slurred speech, Headaches, Incoordination, Numbness Psychiatric: Denies: Anxiety, Depression Endocrine: Denies: Change in Body Habitus, Polydipsia VTE Information - Inpt Only VTE Present on Admission: No VTE Mechan Device Prophylaxis: None VTE Pharm Prophylaxis ordered?: No - Physical Exam General: Alert, Oriented x3, Cooperative, - - Patient has been throwing up during the encounter. HEENT: Atraumatic, PERRLA, EOMI, Normocephalic Oral: Moist Mucosa, No Gingival or Mucosal Lesions/ Ulcerations Neck: Supple, No JVD, Negative Carotid Bruits, Trachea Midline, Thyroid Normal Size and Texture Lungs: Clear to auscultation, No rhonchi, No wheeze, No rales, Diminished Cardiovascular: Normal S1, Normal S2, No murmurs, PMI Normal, Irregular Rate Abdomen: Bowel Sounds Present, Soft, Non Tender, Non-Distended, No Hepato-splenomegaly Extremities: No clubbing, No cyanosis, Edema - Bilateral leg lymphedema, edema, stasis dermatitis, small open wounds with seeping of serous fluid. Skin: No rashes, Ulcer/ Wound Lymphatic: No Cervical, Supraclavicular, or Inguinal Adenopathy Neurological: Cranial nerves II-XII grossly intact, Motor Exam 5/5 strength throughout Psych/Mental Status: Normal Affect, Appropriate, Alert and oriented to time, place, person, mood and affect Vital Signs Temp Pulse Resp BP Pulse Ox 97.4 F L 73 16 94/40 L 95 04/14/18 14:30 04/14/18 14:30 04/14/18 14:30 04/14/18 14:30 04/14/18 14:30 Oxygen Delivery Method Room Air Weight: 185 lb 13.595 oz Body Mass Index (BMI) 35.1 Finger Stick Blood Glucose 119 Laboratory data from April 13, 2018: CBC: WBC is 8.5, hemoglobin 16.2, platelet count is 371,000. BMP: Sodium 128, potassium 6.4, CO2 12, BUN 172, creatinine 7.12. Reportedly, today's creatinine was 8.3. LFT was normal. TSH 1.60. Lactic acid 10.4. EKG revealed A. fib, rate is controlled, RBBB, no acute changes. Clinical Impression(s) from Imaging Studies Abdomen/Pelvis CT 04/14/18 14:51 IMPRESSION: Bilateral renal cysts. Nonobstructive right intrarenal calculus. There has been no change since prior study. Electronically Signed: Rojas Henriquez MD at 15:52 EST Tel [phone], Service support , Assessment/Plan This is an 83 years old female patient directly admitted from outside facility because of acute renal failure, metabolic acidosis and hyperkalemia. #1 acute renal failure: Admission creatinine is 7.17, most recent creatinine was from Jul, 2017 and it was 1.47. On May,, patient was admitted for left ureteral stone with obstruction, left hydronephrosis and hydroureter, underwent cystoscopy and placement of left ureteral stent. During that admission, her creatinine went up to 3.87 and it came down to 2.96 after stent placement and IV fluids. This is probably due to ATN secondary to low blood pressure and medication side effects. CT scan abdomen and pelvis done today and revealed nonobstructive right intrarenal calculus and bilateral renal cysts, normal left kidney, no evidence of obstructive uropathy. Plan: Admit to PCU, cardiac monitoring, IV fluids, input output chart, nephrology consult, maintain Garcia catheter, repeat CBC and BMP tomorrow morning, hold nephrotoxic drugs, urine sodium, urine potassium, urine creatinine, urine chloride, urine protein, PT OT evaluation and treatment. #2 hyperkalemia: Secondary to above. Potassium was 6.4 at the outside facility. She received 1 dose of Kayexalate, potassium is down to 5.8 at this time. EKG revealed A. fib, RBBB, no acute changes. Plan: IV fluids as above, nephrology consult, repeat BMP tomorrow morning. #3 metabolic acidosis: Again secondary to acute renal failure. Serum bicarb is 9. At this time, her respiratory status is stable, pulse ox is maintained on room air. Plan to treat underlying acute renal failure, repeat BMP tomorrow morning. #4 probable acute cystitis: Urine looks dirty and cloudy. Urinalysis revealed cloudy urine, positive for leukocyte esterase, there was more than 100 WBC and 1+ bacteria. Plan: Urine culture, start IV ertapenem. During last admission, urine culture revealed Enterobacter aerogenes that was resistant to Rocephin and Zosyn. #5 recent history of left ureteral obstructing stone/left hydroureter/left hydronephrosis: CT scan abdomen and pelvis today revealed normal left kidney, nonobstructing right kidney stone and no evidence of obstructive uropathy. Plan as above. #6 hypertension: At this time, blood pressure is borderline, tends to be low. Plan to hold all antihypertensive medications, IV fluid bolus and then maintenance fluid, patient may need to go to ICU if IV pressors are needed. #7 type 2 diabetes mellitus: ADA diet, Accu-Cheks, insulin sliding scale, continue glipizide. #8 chronic iron deficiency anemia: Baseline hemoglobin has been around 9-10 g/dL, stable at baseline. Plan to continue iron supplement. #9 hyperlipidemia: Continue statins when home medication list updated. #10 hypothyroidism: Continue levothyroxine, TSH was 1.60 today, normal. #11 CODE STATUS: Full code. I discussed this with the patient herself and her son. The son mentioned that it is up to his mother. The mother kind of not sure what to do but she stated that she wants everything to be done at this time. I requested the patient to think about what we should do in case of her heart stopped working or she cannot breathe on her own but for now she will be a full code. #12 DVT prophylaxis: Subcu heparin. This note was generated with [employer] software. It may contain incorrect words, spelling, and punctuation that were not noted in checking the note before signing. Code Visit Inpatient E AND M: 28805 Init Hosp L3 04/14/181933 <Electronically signed by Quincy Carter MD> Date Quincy Carter MD Cosigner Signature: Date (if applicable) CC: Quincy Carter; Danny Choi MD Signed COMPREHENSIVE METABOLIC Collected: 04/14/2018 Status: F Source: BLANK ROGER 6:20 PM [facility] REPOSITORY Order Comment: UTOX2. NURSE SUP CALLED, TUBES SENT TO FLOOR. TYPE CODE TESTS RESULT OUT OF RANGE REFERENCE UNITS LAB L501.0100 74-106 mg/dL Normal GLU 91 Result Comment: Please note revised GLUCOSE reference range effective 2017. LAB L501.1000 7-18 mg/dL High alert BUN 173 Result Comment: Critical Result(s) Called at: 18:58:40 04/14/2018 by: CR SZYMANSKI TO YADIELRY IN PCU LAB L501.1100 0.55-1.02 mg/dL CREAT,SERUM High 7.17 Result Comment: The validity of the calculated GFR AND GFRAA in patients over 70 years has not been determined. Clinical correlation is essential. LAB L501.1110 >60 mL/min Low EST GFR 6 Result Comment: Non- GFR Calc LAB L501.1115 >60 mL/min Low EST GFR - AA 7 Result Comment: GFR Calc LAB L501.1255 ml/min Normal Estimated CRCL 4.49 LAB L501.1300 10-20 RATIO High BUN/CRE 24.1 LAB L501.1500 6.4-8.2 g/dL Normal T PROT 7.0 LAB L501.1800 3.2-5.0 g/dL Low ALB 2.6 LAB L501.1950 2.2-4.2 g/dL High GLOB 4.4 LAB L501.2000 0.9-2.4 RATIO Low A/G 0.6 LAB L501.2200 8.5-10. mg/dL Normal 1 CA 8.7 LAB L501.4100 15-37 U/L Normal AST 30 Result Comment: Moderate Hemolysis, Result may be falsely increased. LAB L501.4305 45-117 U/L Normal ALK P 81 LAB L501.4405 13-56 U/L Normal ALT 18 LAB L501.4600 0.20-1.00 mg/dL Normal T BILI 0.30 LAB L501.5300 136-145 mmol/L Low NA 134 LAB L501.5600 3.5-5.1 mmol/L High K 5.8 Result Comment: Moderate Hemolysis, Result may be falsely increased. LAB L501.5900 98-107 mmol/L Normal CL 107 LAB L501.6100 21.0-32.0 mmol/L Low alert CO2 9.0 Result Comment: Critical Result(s) Called at: 18:58:40 04/14/2018 by: CR SZYMANSKI TO LEANNEMARKORY IN PCU LAB L501.6200 5-15 High GAP 18 Performed By: #### L500.4050 #### [facility] [address] [place], [address] LACTIC ACID Collected: 04/14/2018 Status: F Source: NEOSHO 6:20 PM [facility] REPOSITORY Order Comment: UTOX2. NURSE SUP CALLED, TUBES SENT TO FLOOR. TYPE CODE TESTS RESULT OUT OF RANGE REFERENCE UNITS LAB L503.6005 0.4-2.0 mmol/L Normal LACTIC ACID 1.0 Performed By: #### L503.6005 #### [facility] [address] [place], [address] BEDSIDE GLUCOSE Collected: 04/14/2018 Status: F Source: NEOSHO 5:25 PM [facility] REPOSITORY TYPE CODE TESTS RESULT OUT OF RANGE REFERENCE UNITS LAB L501.080 70-110 mg/dL Normal BEDSIDE GLU 93 Result Comment: MANAGEMENT OF PATIENT CARE PER NURSING PROTOCOL Performed By: #### L501.080 #### [facility] [address] [facility] [place] [address] CREATININE, URINE Collected: 04/14/2018 Status: F Source: NEOSHO 5:20 PM [facility] REPOSITORY TYPE CODE TESTS RESULT OUT OF RANGE REFERENCE UNITS LAB L502.0300 NO RANGE EST. mg/dL Normal URINE 155.00 CREAT Performed By: #### L502.0300 #### [facility] [address] [place], [address] PROTEIN, URINE Collected: 04/14/2018 Status: F Source: NEOSHO (RANDOM) 5:20 PM [facility] REPOSITORY TYPE CODE TESTS RESULT OUT OF RANGE REFERENCE UNITS LAB L501.1930 <11.9 mg/dL High 97.9 PROTEIN,UR.R AN. Performed By: #### L501.1930 #### [facility] [address] [place], [address] URINE POTASSIUM Collected: 04/14/2018 Status: F Source: NEOSHO 5:20 PM [facility] REPOSITORY TYPE CODE TESTS RESULT OUT OF RANGE REFERENCE UNITS LAB L501.5800 Not Establ. mmol/L Normal UR K 30.0 Performed By: #### L501.5800 #### [facility] [address] [place], [address] URINE SODIUM Collected: 04/14/2018 Status: F Source: NEOSHO 5:20 PM [facility] REPOSITORY TYPE CODE TESTS RESULT OUT OF RANGE REFERENCE UNITS LAB L501.5500 Not Establ. mmol/L Normal UR NA 16 Performed By: #### L501.5500 #### [facility] [address] [facility] [place], [address] URINALYSIS, COMPLETE Collected: 04/14/2018 Status: F Source: NEOSHO 5:20 PM [facility] REPOSITORY Order Comment: How was Urine Obtained? SEM MANAGER TO SPECIFY TYPE CODE TESTS RESULT OUT OF RANGE REFERENCE UNITS LAB L400.3000 Yellow COLOR Normal Yellow LAB L400.3050 Clear Normal CLARITY Cloudy LAB L400.3200 Normal mg/dl Normal GLUCOSE, UR Normal LAB L400.3300 Negative mg/dL Normal BILIRUBIN URINE Negative LAB L400.3400 Negative mg/dl Normal KETONE UR Negative LAB L400.3465 1.002-1.030 Normal SP.GR. DIPSTX 1.020 LAB L400.3550 5.0 - 8.0 pH UR Normal 5.0 LAB L400.3600 Negative mg/dl High PROT DIPSTX 100 LAB L400.3700 Normal mg/dl Normal UROBILI Normal LAB L400.3750 Negative Normal NITRITE UR Negative LAB L400.3780 Negative /ul High OCCULT BLOOD-UR 250 LAB L400.3800 Negative /ul High LEUK ESTERASE 500 LAB L400.4050 0-5 /hpf WBC Normal >100 SEEN LAB L400.4100 0-5 /hpf 0 Normal RBC-UA SEEN LAB L400.4150 5-10 /hpf SQUAM 0 Normal EPI SEEN LAB L400.4300 None Seen /hpf 1+ Normal BACTERIA LAB L400.4350 <or=2+ /hpf 0 Normal MUCUS, URINE SEEN Performed By: #### L400.0001 #### [facility] [address] [place], [address] Observed: 04/14/2018 Status: F Source: NEOSHO CULTURE, URINE 5:20 PM [facility] REPOSITORY Urine Culture ZONE OF CLEARING ORGANISM 1: Klebsiella pneumoniae sp pneum [place]enden Count 11,000-25,000 Klebsiella pneumoniae sp pneum: REACTION Ampicillin $ R Ampicillin/Sulbactam $ 4 S Cefazolin $ <=4 S Cefepime $ <=0.12 S Ceftazidime *NF <=1 S Ceftriaxone $ <=0.25 S Ciprofloxacin $ <=0.25 S Ertapenim $$$ <=0.12 S ESBL NEG Gentamicin $ <=1 S Imipenem *NF <=0.25 S Levofloxacin $ <=0.12 S Nitrofurantoin $ <=16 S Piperacillin/Tazobactam $$ <=4 S Tobramycin $ <=1 S Trimethoprim/Sulfametho $ <=20 S (NF) indicates non-formulary drug at [facility]. Approval by Infectious Disease Specialist required before non-formulary drugs may be ordered and/or dispensed. Performed By: #### M100.0650 #### [facility] [address] [place], [address] Observed: 04/14/2018 Status: F Source: NEOSHO CULTURE, WOUND 5:20 PM [facility] REPOSITORY Gram Stain Gram Stain Rare Gram positive rods Wound Culture ORGANISM 1: Klebsiella oxytoca Amount Growth 2+ ORGANISM 2: Staphylococcus aureus Amount Growth 1+ Klebsiella oxytoca: REACTION Ampicillin $ R Ampicillin/Sulbactam $ 4 S Cefazolin $ <=4 S Cefepime $ <=0.12 S Ceftazidime *NF <=1 S Ceftriaxone $ <=0.25 S Ciprofloxacin $ <=0.25 S Ertapenim $$$ <=0.12 S ESBL NEG Gentamicin $ <=1 S Imipenem *NF <=0.25 S Levofloxacin $ <=0.12 S Piperacillin/Tazobactam $$ 8 S Tobramycin $ <=1 S Trimethoprim/Sulfametho $ <=20 S (NF) indicates non-formulary drug at [facility]. Approval by Infectious Disease Specialist required before non-formulary drugs may be ordered and/or dispensed. Staphylococcus aureus: REACTION Cefoxitin *NF NEG Doxycline <=0.5 S Daptomycin $$ 0.25 S Clindamycin $$ 0.25 S Inducable Clindamycin Resistan NEG Erythromycin $ <=0.25 S Gentamicin $ <=0.5 S Levofloxacin $ <=0.12 S Linezolid $$$$ 2 S Moxifloxicin *NF <=0.25 S Oxacillin NF <=0.25 S Tigecycline $$$$ <=0.12 S Rifampin $$ <=0.5 S Tetracycline NF <=1 S Trimethoprim/Sulfametho $ <=10 S Vancomycin $ <=0.5 S (NF) indicates non-formulary drug at [facility]. Approval by Infectious Disease Specialist required before non-formulary drugs may be ordered and/or dispensed. * CLSI guidelines does not recommend testing of cephalosporins. This interpretation is deduced from Beta-lactam/penicillin results. Performed By: #### M100.1400 #### [facility] [address] [facility], [address] CONSULTATION Observed: 04/14/2018 Status: F Source: NEOSHO 4:22 PM [facility] REPOSITORY [facility] Medical Records Department [address] [place] [address] Consultation 04/14/18 1527 MR#: [id number] Acct: [id number] Name: ARLETTE GUALLPA Rep #: [id number] : 1935 83 From: Carie Blanco DO PCP: Danny Choi MD Status: ADM IN Y Location: [facility] [id number] Consultation - Renal 04/14/18 PCP/ Referring MD: Requesting physician: [] Primary care physician: Danny Choi MD Reason for Consultation:: RUBINA, hyperkalemia - History of Present Illness History of Present Illness: The patient is an 83 year old F who was seen on consult back in June 2017 at [facility] for RUBINA from ATN, obstructed stone requiring left ureteral stent. Creatinine was 3.87 in June improved to 1.42 in July 2017. She is admitted for renal failure with creatinine up to 8.[address] abdomen from [facility] showed nonobstructive 4 mm stone in the right kidney, normal left kidney. Baseline creatinine 1.2 in the past from [facility]. She has a history of UTI with enterobacter aerogenes. She is morbidly obese with HTN, DMT2, atrial fibrillation. She is on diuretics, lasix, chronically at home as well as losartan. She and her son denied NSAID use. She had a history of iron deficiency anemia, has been on iron supplement and her hemoglobin yesterday was 16.2 g/dL. Patient has not been able to keep any fluids down for the past 2 days due to nausea and vomiting. She admits to dysuria for the past week. Her PCP had recommended to follow-up with urology. She was started on an antibiotic as an outpatient by urology. Patient's son is not able to recollect the name of the medication. She has generalized weakness, lightheadedness and dizziness. BP was low on presentation at 94/40. She denies any chest pain or syncope. She has chronic lower extremity erythema with swelling. She denied abdominal pain or diarrhea but does have constipation. She also had complaints of head and neck pain. She denied any fever or chills. Patient's son is at the bedside providing history. Patient went to see her PCP yesterday for nosebleed. She is on Eliquis for history of chronic atrial fibrillation.She had a blood work done as outpatient on 04/13/18. BUN was 172 and creatinine was 7.12 with potassium of 6.4 from OSH. Lactic acid was 10.4. EKG that was done today at the outside facility revealed A. fib, rate is controlled, RBBB, no acute ischemic changes. - Allergies Allergies: Allergies lisinopril Adverse Reaction (Verified 07/14/17 13:17) Other COUGH - Current Medications Current Medications: Current Medications Acetaminophen (Tylenol) 650 mg PO Q6H PRN PRN PRN Reason: Fever, headache, pain Sodium Chloride () 1,000 mls @ 125 mls/hr IV .Q8H EDEN Insulin Human Lispro (Humalog Kwikpen (Bkc)) 0 unit SC ACHS EDEN; Protocol Magnesium Hydroxide (Milk Of Magnesia) 30 ml PO DAILY PRN PRN PRN Reason: Constipation Ondansetron HCl (Zofran) 4 mg IV Q6H PRN PRN PRN Reason: NAUSEA/VOMITING - Past Medical History Past Medical History (Chronic Problems): Chronic Problems Left nephrolithiasis (Chronic) Hydroureter, left (Chronic) Hydronephrosis, left (Chronic) HTN (hypertension) (Chronic) HLD (hyperlipidemia) (Chronic) Chronic lymphedema (Chronic) Iron deficiency anemia (Chronic) Morbid obesity (Chronic) Chronic venous stasis dermatitis (Chronic) - Past Surgical History Surgical History: no surgical history, - - Denies any surgical history. - Social History Smoking Status: Never smoker Alcohol: None Drugs: None - Family History Maternal History Items: Diabetes, - Paternal History Items: Heart Disease, - Sibling History Items: Cancer Review of Systems Constitutional: Reports: Anorexia, Malaise, Weakness, Fatigue. Denies: Chills, Fever Eyes: Denies: Blurred vision HEENT: Reports: Nasal bleeding, - - Epistaxis on Eliquis at home. Denies: Head Aches Cardiovascular: Reports: Edema - Chronic, Light Headedness. Denies: Chest Pain, Orthopnea, Syncope Respiratory: Denies: Cough, Hemoptysis, Shortness of Breath Gastrointestinal: Reports: Constipation, Nausea, Vomiting. Denies: Abdominal Pain, Diarrhea Genitourinary: Reports: Dysuria, - - Decreased urinary output past 2 days Musculoskeletal: Reports: Back Pain, Neck Pain, - - Generalized weakness Skin: Reports: Skin Changes - Erythema bilateral lower extremities chronic with scaling, - Neurological: Reports: Balance problems, Tremor. Denies: Numbness, Seizures Hematologic/ Lymphatic: Reports: Anemia. Denies: Hx of blood clot - Physical Exam General: Alert, Oriented x3, Cooperative, No apparent distress HEENT: PERRLA, EOMI Oral: Dry Mucosa Neck: Supple, No JVD Lungs: Clear to auscultation Cardiovascular: Irregular Rate - Atrial fibrillation on monitor with bundle branch block Abdomen: Bowel Sounds Present, Soft, Non Tender, Non-Distended, Obese Extremities: Edema Skin: - - Chronic venous stasis skin changes bilateral lower extremity with mild erythema and scaling Musculoskeletal: - - Muscle weakness bilateral lower extremities Neurological: - - Generalized weakness present, No tremor or asterixis Psych/Mental Status: Normal Affect, Appropriate, Alert and oriented to time, place, person, mood and affect Vital Signs Temp Pulse Resp BP Pulse Ox 97.4 F L 73 16 94/40 L 95 04/14/18 14:30 04/14/18 14:30 04/14/18 14:30 04/14/18 14:30 04/14/18 14:30 Oxygen Delivery Method Room Air Weight: 84.3 kg Body Mass Index (BMI) 35.1 Finger Stick Blood Glucose 119 Clinical Impression(s) from Imaging Studies Abdomen/Pelvis CT 04/14/18 14:51 IMPRESSION: Bilateral renal cysts. Nonobstructive right intrarenal calculus. There has been no change since prior study. Electronically Signed: Rojas Henriquez MD at 15:52 EST Tel [phone], Service support , Assessment/Plan 1. Acute kidney injury suspect due to dehydration, hypotension, possible acute tubular necrosis from shock. Patient on losartan and Lasix at home. Agreed to discontinue due to his low her low blood pressures. Discussed with patient and patient's son at bedside regarding possible need for hemodialysis. Patient states she is not ready to do aggressive therapy at this time and would like to try correcting with medical therapy. Check stat renal panel. Hemoglobin 16 to suggest hemoconcentration. Continue with IV hydration. Oxygenation stable. Avoid all nephrotoxins. Hold losartan and Lasix. Avoid NSAIDs as they have been doing at home. 2. Sepsis syndrome without leukocytosis or fever. Check urine C/S. Lactic acidosis present. 3. Acute hyperkalemia due to metabolic acidosis, acute renal failure. Received Kayexalate x1 dose at outside hospital with bowel movement according to nursing staff. Repeat potassium now. 4. History of nephrolithiasis with obstructive stone on the left kidney back in June 2017. CT of the abdomen without obstructive stone in the right kidney. 5. UTI check urine C/S. IV antibiotic therapy per primary service. 6. Chronic atrial fibrillation with rate control 7. Acute epistaxis due to Eliquis and renal failure. Hold Eliquis for now. 8. Hypertension with low blood pressures hold all blood pressure medications for now. 9. Diabetes mellitus type 2 with stable blood sugar. 04/14/18 1622 <Electronically signed by Carie Blanco DO> Date Carie Blanco DO Cosigner Signature (if applicable): Date CC: Carie Blanco DO; Danny Choi MD; Mac Emery MD Signed CBC W/DIFF, AUTOMATED Collected: 04/14/2018 Status: F Source: BLANK 4:19 PM [facility] REPOSITORY TYPE CODE TESTS RESULT OUT OF RANGE REFERENCE UNITS LAB L100.1000 4.4-11.0 K/mm3 Normal WBC 10.7 LAB L100.1200 4.2-5.4 M/mm3 Low RBC 3.16 LAB L100.1300 12.0-15.0 g/dl Low HGB 10.2 LAB L100.1400 37-47 % Low HCT 30.3 LAB L100.1500 81-99 fL Normal MCV 95.9 LAB L100.1600 27.0-32.0 pg High MCH 32.3 LAB L100.1700 32-36 g/gl Normal MCHC 33.7 LAB L100.1810 11.6-14.6 % Normal RDW CV 14.2 LAB L100.1820 35.1-43.9 fl High RDW SD 47.2 LAB L100.1900 150-450 K/mm3 Normal PLT 240 LAB L100.2000 6.2-12.0 fl Normal MPV 9.6 LAB L100.2100 47-70 % High NEUT% 96.3 LAB L100.2200 19-41 % Low LY% 2.3 LAB L100.2300 0-10 % Normal MONO% 0.7 LAB L100.2400 0-5 % Normal EO% 0.2 LAB L100.2500 0-1 % Normal BASO% 0.1 LAB L100.2550 0.0-0.9 % Normal IM GRAN % 0.400 Result Comment: IG% - Immature Granulocytes (promyelocytes, myelocytes and metamyelocytes) > 1% indicates that a LEFT SHIFT is Present. LAB L100.2620 2.0-7.7 X10 3/uL High Absolute Neut 10.3 LAB L100.2720 0.83-4.51 X10 3/ul Low Absolute Lymph 0.24 LAB L100.4500 Normal SMEAR COMMENT SEE COMMENT Result Comment: LYMPHOPENIA NOTED LAB L100.5500 ADEQ PLT EST Normal ADEQUATE LAB L100.7300 ANISO RARE Normal LAB L100.7800 RARE Normal MACROCYTE Performed By: #### L100.0100 #### [facility] [address] [place], [place], [address] PROTHROMBIN TIME W/INR Collected: 04/14/2018 Status: F Source: [place] 4:19 PM [facility] REPOSITORY TYPE CODE TESTS RESULT OUT OF RANGE REFERENCE UNITS LAB L300.4150 11.7-14.9 SECONDS High PROTIME 18.1 LAB L300.4200 Normal INR 1.5 Performed By: #### L300.3900 #### [facility] [address] [place], [address] RENAL PROFILE Collected: 04/14/2018 Status: P Source: [place] 4:19 PM [facility] REPOSITORY TYPE CODE TESTS RESULT OUT OF RANGE REFERENCE UNITS LAB L501.0100 74-106 mg/dL High GLU 115 Result Comment: Fasting Glucose result from 100 to 125 mg/dL suggests IMPAIRED HOMEOSTASIS per A.D.A. criteria. Please note revised GLUCOSE reference range effective 2017. LAB L501.1800 3.2-5.0 g/dL Low ALB 2.8 LAB L501.2200 8.5-10.1 mg/dL Normal CA 8.7 LAB L501.2300 2.5-4.9 mg/dL High PHOS 8.1 LAB L501.5300 136-145 mmol/L Low NA 133 LAB L501.5600 3.5-5.1 mmol/L High K 5.8 LAB L501.5900 98-107 mmol/L Normal CL 106 Performed By: #### L500.3600, L500.4050 #### [facility] [address] [place], [address] COMPREHENSIVE METABOLIC Collected: 04/14/2018 Status: P Source: [facility] 4:19 PM [facility] REPOSITORY TYPE CODE TESTS RESULT OUT OF RANGE REFERENCE UNITS LAB L501.1500 6.4-8.2 g/dL Normal T PROT 6.7 LAB L501.1950 2.2-4.2 g/dL Normal GLOB 3.9 LAB L501.2000 0.9-2.4 RATIO Low A/G 0.7 LAB L501.4100 15-37 U/L Normal AST 22 LAB L501.4305 45-117 U/L Normal ALK P 90 LAB L501.4405 13-56 U/L Normal ALT 17 LAB L501.4600 0.20-1.00 mg/dL Normal T BILI 0.20 Performed By: #### L500.3600, L500.4050 #### [facility] [address] [place], [address] ABDOMEN/PELVIS WITHOUT Observed: 04/14/2018 Status: F Source: [place] CONT 2:54 PM [facility] REPOSITORY [facility] Imaging Services [address] [place] [address] Abdomen/Pelvis without Cont MR#: [id number] Acct: [id number] Name: ARLETTE GUALLPA Rep #: [id number] : 1935 F 83 From: Rojas Henriquez MD PCP: Danny Choi MD Status: ADM IN Study: Abdomen/Pelvis without Cont Date of Exam: 04/14/18 Exam# [id number] Ordering Dr: Quincy Carter MD STUDY: CT ABDOMEN AND PELVIS WITHOUT CONTRAST REASON FOR EXAM: Female, 83 years old. Acute kidney injury. RADIATION DOSAGE (If Supplied By Facility): CTDIvol = ( 14.80 ) mGy, DLP = ( 622.44 ) mGycm TECHNIQUE: Transaxial images were obtained from the dome of the diaphragm to the symphysis pubis without oral contrast, and without intravenous contrast. Sagittal and coronal images were reconstructed. Individualized dose optimization techniques were used for this CT. COMPARISON: Comparison is made with prior examination dated April 02, 2018. FINDINGS: The visualized lung bases are unremarkable. Coronary artery calcification. Normal liver. Findings suggestive of sludge within the gallbladder lumen. Normal spleen. Normal pancreas. Normal bilateral adrenal glands. Stable right renal cysts. The larger cyst measures 4.5 cm x 4.5 cm. Stable 4 mm nonobstructive calculus in the lower pole calyx of the right kidney. Normal left kidney. There is a small hiatal hernia. Normal small intestine. There are multiple colonic diverticula consistent with diverticulosis. The appendix is visualized and appears normal. There is diffuse atherosclerotic calcification of the abdominal aorta and its major visceral branches, without a demonstrated aneurysm. Normal inferior vena cava. There is borderline retroperitoneal lymphadenopathy with enlarged nodes no greater than 10mm in the short axis diameter. A Garcia catheter is seen within the urinary bladder. Urinary bladder is empty. There is a small umbilical hernia containing fat. There are diffuse degenerative changes of the visualized lumbar spine. CT/Abdomen/Pelvis without Cont IMPRESSION: Bilateral renal cysts. Nonobstructive right intrarenal calculus. There has been no change since prior study. Electronically Signed: Rojas Henriquez MD at 15:52 EST Tel [phone], Service support , CC: Quincy Carter; Danny Choi MD Handkerchief Cutter: Signed CHEST 1 VIEW Observed: 04/14/2018 Status: F Source: [place] (PORTABLE) 2:54 PM [facility] REPOSITORY [facility] Imaging Services [address] [place] [address] Chest 1 View (Portable) MR#: [id number] Acct: [id number] Name: ARLETTE GUALLPA Rep #: [id number] : 1935 F 83 From: Eve Garcia MD PCP: Danny Choi MD Status: ADM IN Study: Chest 1 View (Portable) Date of Exam: 04/14/18 Exam# [id number] Ordering Dr: Quincy Carter MD STUDY: X-RAY CHEST REASON FOR EXAM: Female, 83 years old. Cough. Acute kidney injury. TECHNIQUE: Single frontal view of the chest. COMPARISON: June 21, 2017 FINDINGS: There is no new focal consolidation. There are stable prominent interstitial markings. Normal size heart. Normal mediastinum and rachel. Normal visualized pulmonary arteries. There is atherosclerotic calcification of the aortic arch with tortuosity. Normal visualized thoracic spine. Normal visualized ribs, clavicles, and shoulders. There is no demonstrated abnormality of the visualized soft tissue structures of the upper abdomen. RAD/Chest 1 View (Portable) IMPRESSION: No acute cardiopulmonary process. Electronically Signed: Eve Garcia MD at 23:15 EST Tel , Service support , CC: Quincy Carter; Danny Choi MD Handkerchief Cutter: Signed URINALYSIS Collected: 04/14/2018 Status: F Source: [facility] 11:49 AM [facility] REPOSITORY TYPE CODE TESTS RESULT OUT OF REFERENCE UNITS RANGE LAB URINALYSIS (LOINC) URINALYSIS Result Comment: URINALYSIS LAB Specimen Type(LOINC) Specimen Type Clean catch LAB Color(LOINC) NORMAL: YELLOW Color vern LAB Clarity(LOINC) NORMAL: CLEAR Clarity very cloudy LAB ph(LOINC) NORMAL: 5.0-8.0 ph 5 LAB Protein(LOINC) NORMAL: NEGATIVE Protein Abnormal 100 LAB Glucose(LOINC) NORMAL: NORMAL Glucose NORM LAB Ketone(LOINC) NORMAL: NEGATIVE Ketone NEG LAB Bilirubin(LOINC) NORMAL: NEGATIVE Bilirubin NEG LAB Blood(LOINC) NORMAL: NEGATIVE Blood Abnormal 250 LAB Urobilinog(LOINC) NORMAL: NORMAL Urobilinog NORM LAB Sp Lennon(LOINC) NORMAL: 1.010-1.030 Sp Lennon 1.020 LAB Nitrite(LOINC) NORMAL: NEGATIVE Nitrite NEG LAB Leukocytes(LOINC) NORMAL: NEGATIVE Leukocytes Abnormal 500 LAB Microscopic(LOINC ) Microscopic SEE BELOW Result Comment: MICROSCOPIC LAB Wbc(LOINC) 0-5/hpf Wbc >50 LAB Rbc(LOINC) 0-3/hpf Rbc NONE LAB Casts(LOINC) Casts NONE LAB Crystals(LOINC) Crystals NONE LAB Amorphous(LOINC) Amorphous NONE LAB Bacteria(LOINC) Bacteria 4+ LAB Epi Cells(LOINC) Epi Cells NONE LAB Mucous(LOINC) Mucous NONE LAB Yeast(LOINC) Yeast NONE Performed By: #### [id number] #### [facility],[address] [place] [id number] LACTATE Collected: 04/14/2018 Status: F Source: [place] 10:27 [facility] REPOSITORY TYPE CODE TESTS RESULT OUT OF REFERENCE UNITS RANGE LAB LACTATE(SCOTTY 4.5 - 18.0 mg/dL [place]) LACTATE 10.4 Performed By: #### [id number] #### [facility],[address] [place] [address] Observed: 04/14/2018 Status: F Source: [place] CULTURE BLOOD 10:27 [facility] REPOSITORY CULTURE BLOOD CULTURE BLOOD SET: 2 of 2 24HOUR REPORT NEGATIVE 48HOUR REPORT NEGATIVE 72HOUR REPORT NEGATIVE M I C R O B I O L O G Y R E P O R T FINAL Antimicrobial Susceptibility and Organism Identification Report Specimen Number : [id number] Requested : 04/14/18 Specimen Source : BLOOD Collected : 04/14/18 10:27 [facility] : Emergency Room Received : 04/14/18 10:27 Requesting Physician : VAN Patient/Specimen Tests and Comments Specimen Comments FINAL REPORT: No Growth at 5 Days Tech : Source : BLOOD ID # : [id number] FINAL Report Date : / / : Collected : 04/14/18 10:27 04/19/18.1424.BKO. 04/19/[id number].COMPLETE Performed By: #### [id number] #### [facility],[address] [place] [address] Observed: 04/14/2018 Status: F Source: [facility] CULTURE BLOOD 10:25 AM [facility] REPOSITORY CULTURE BLOOD CULTURE BLOOD SET: 1 of 2 24HOUR REPORT POSITIVE CALLED TO MARIE BY LMM @ 0056 READ BACK BY MARIE DELA CRUZ 0056 GRAM VARIABLE RODS M I C R O B I O L O G Y R E P O R T FINAL Antimicrobial Susceptibility and Organism Identification Report Specimen Number : [id number] Requested : 04/14/18 Specimen Source : BLOOD Collected : 04/14/18 10:25 [facility] : Emergency Room Received : 04/14/18 10:25 Requesting Physician : VAN Patient/Specimen Tests and Comments Specimen Comments FINAL REPORT: GRAM NEGATIVE RODS Organisms Identified -------- * 01 Klebsiella pneumoniae 04/17/18 Tech : _CALLED_TO_BRADEN_IN_ER Source : BLOOD [id number]. F L 04/17/18 13:10 KLS Report Date : / / : Collected : 04/14/18 10:25 Continued on Next Page M I C R O B I O L O G Y R E P O R T FINAL Antimicrobial Susceptibility and Organism Identification Report Isolate 01 Klebsiella pneumoniae Klebsiella pneumoniae DRUG PETER Sys. Urine UNITS ML/DL --- ----- ----- Ampicillin <=8 S Aztreonam <=8 S Ceftriaxone <=8 S Ceftazidime <=1 S Cephalothin <=8 Cefotaxime <=2 S Ciprofloxacin <=1 S Cefuroxime <=4 S Ertapenem <=1 S Nitrofurantoin <=32 Gentamicin <=4 S Imipenem <=1 S Levofloxacin <=2 S Meropenem <=1 S Pip/Tazo <=16 S Piperacillin <=16 S Trimeth/Sulfa <=2/38 S Tetracycline <=4 S Tigecycline <=2 S Tobramycin <=4 S +, ++, +++, or S = Susceptible N/R = Not Reported Gina = Beta Lactamase Positive I = Intermediate CC = Cost Code TFG = Thymidine-dependent Strain R = Resistant PETER = mcg/ml (mg/L) Blank = Data not available, or drug not advisable or tested For Blood and CSF Isolates, a Beta-Lactamase test is recommended for Enterococus species. IB appears in place of S, I (S), +, ++, or +++ with species known to possess inducible B-lactamases; potentially they may become resistant to all B-lactam drugs. Monitoring of patients during/after therapy is recommended. Avoid other/combined B-lactam drugs. (a) Use maximum doses of drug with an aminoglycoside for P. aeruginosa in patients with granulocytopenia or serious infections. (b) Breakpoints based on parenteral dose. For cefuroxime Axetil (PO) use <8=S, 8-16=I, >16=R. (c) For non-enterococcal streptococci, Micrococcus species, and Listeria species, refer to the Ampicillin interpretation. * Interpretations based on approx. adult attainable systemic/urine levels, except drugs with <3 dilutions, which print NCCLS. Doses are guidelines; consider weight and renal/hepatic function. Urine interpretation for lower UTI only. Interpretations based on NCCLS M7-A2. Ticar/K Clav'ate for gram positives based on pharmaceutical sales's breakpoints. Tech : _CALLED_TO_MATT_IN_ER Source : BLOOD [id number]. F L 04/17/18 13:10 KLS Report Date : / / : Collected : 04/14/18 10:25 04/17/18.1307.KLS. 04/16/18.0838.BKO. 04/17/18.1312.KLS.COMPLETE Performed By: #### [id number] #### [facility],[address] [place] [address] CHEST 1 VIEW Observed: 04/14/2018 Status: F Source: [facility] [place] 9:08 AM [place] [address] Patient: ARLETTE GUALLPA Phone#: : [phone] Age: 83 Gender: F Pt. Type: ER Account: [id number] Location: [id number] Ordering: AMOS ARAUJO Exam Date: 04/14/2018/8:53 Family Phys: DANNY CHOI Charge Code: 556978 Physician: Harmon Order #: [id number] DLP Dose#: PROCEDURE: X-RAY CHEST 1 VIEW COMPARISON: [facility], XR, CHEST 1 VIEW, 07/17/2017, 11:40. INDICATIONS: Weakness FINDINGS: LUNGS: Normal. No significant pulmonary parenchymal abnormalities. VASCULATURE: Normal. Unremarkable pulmonary vasculature. CARDIAC: Normal. No cardiac silhouette abnormality or cardiomegaly. MEDIASTINUM: Atherosclerotic aorta with no visible aneurysm. PLEURA: Normal. No effusion or pleural thickening. BONES: Normal. No fracture or visible bony lesion. OTHER: Negative. CONCLUSION: No acute disease. Dictated by: Francoise Gale MD on 04/14/2018 at 9:25 Approved by: Francoise Gale MD on 04/14/2018 at 9:25 CBC Collected: 04/14/2018 Status: F Source: [facility] 8:48 AM [facility] REPOSITORY TYPE CODE TESTS RESULT OUT OF RANGE REFERENCE UNITS LAB CBC(LOINC) CBC Result Comment: CBC-COMPLETE BLOOD COUNT LAB WBC(LOINC) 4.5 - 10.8 x 10EE3/UL WBC High 18.0 LAB RBC(LOINC) 4.10 - x 10EE6/UL 5.30 RBC Low 3.60 LAB HEMOGLOBIN(LOINC 12.0 - g/dl ) 16.0 Low HEMOGLOBIN 11.8 LAB HEMATOCRIT(LOINC 34.0 - % ) 46.0 HEMATOCRIT 35.0 LAB MCV(LOINC) 80 - 99 fl MCV 97 LAB MCH(LOINC) 27 - 33 pg MCH 33 LAB MCHC(LOINC) 32 - 36 X10 3 MCHC 34 LAB RDW/CV(LOINC) 12.0 - % 15.6 RDW/CV 15.3 LAB PLATELET(LOINC) 150 - 450 x10EE3/UL PLATELET 317 LAB MPV(LOINC) 6.6 - 10.5 fl MPV 8.5 Result Comment: AUTOMATED DIFFERENTIAL LAB NEUT %(LOINC) 46.0 - 76.0 % NEUT % High 92.3 LAB LYMPH %(LOINC) 20.0 - 45.0 % Low LYMPH % 2.5 LAB MONOS %(LOINC) 0.0 - 10.0 % MONOS % 5.1 LAB EO %(LOINC) 0.0 - 7.0 % EO % 0.0 LAB BASO %(LOINC) 0.0 - 2.0 % BASO % 0.1 LAB Lymph #(LOINC) 0.80 - 2.80 x10EE3/U Low L Lymph # 0.50 LAB Neut #(LOINC) 1.50 - 7.10 x10EE3/U L Neut # High 16.60 LAB Cowley #(LOINC) 0.20 - 1.00 x10EE3/U L Cowley # 0.90 LAB EO #(LOINC) 0.00 - 0.50 x10EE3/U L EO # 0.00 LAB Baso #(LOINC) 0.00 - 0.10 x10EE3/U L Baso # 0.00 LAB MANUAL DIFF([facility]) MANUAL DIFF N/A LAB MORPHOLOGY([facility] ) MORPHOLOGY N/A Result Comment: {CD] Performed By: #### [id number] #### [facility],[address] [place] [address] CMP WITH EGFR Collected: 04/14/2018 Status: F Source: [facility] 8:48 AM [facility] REPOSITORY TYPE CODE TESTS RESULT OUT OF RANGE REFERENCE UNITS LAB CMP with eGFR(INC) CMP with eGFR Result Comment: COMPREHENSIVE METABOLIC PANEL LAB SODIUM(LOINC) 136 - 145 mmol/l Low SODIUM 122 LAB POTASSIUM(LOINC) 3.5 - 5.1 mmol/L High Alert POTASSIUM 6.6 Result Comment: { CALLED TO Braden/1002 { READ BACK BY ib2045/m/lm LAB CHLORIDE(LOINC) 98 - 107 mmol/L CHLORIDE Low 92 LAB CO2(LOINC) 21.0 - mmol/L 31.0 CO2 Low 8.6 LAB GLUCOSE(LOINC) 74 - 106 mg/dl GLUCOSE High 256 LAB BUN(LOINC) 6 - 20 mg/dl BUN High 187 LAB CREATININE(LOINC) 0.6 - 1.2 mg/dl High CREATININE 8.3 LAB AST/SGOT(LOINC) 13 - 39 U/L AST/SGOT 16 LAB ALK PHOS(LOINC) 38 - 126 U/L ALK PHOS 77 LAB CALCIUM(LOINC) 8.6 - mg/dl 10.2 CALCIUM 10.2 LAB TOTAL PROTEIN(LOINC) 6.4 - 8.3 g/dl TOTAL PROTEIN 8.3 LAB ALBUMIN(LOINC) 3.4 - 4.8 g/dL ALBUMIN 3.9 LAB GLOBULIN(LOINC) 1.5 - 3.8 G/DL GLOBULIN High 4.4 LAB A/G RATIO(LOINC) 0.9 - 1.6 A/G RATIO 0.9 LAB TOTAL BILI(LOINC) 0.0 - 1.5 mg/dl TOTAL BILI 0.3 LAB B/C RATIO(LOINC) 0 - 30 ratio B/C RATIO 23 LAB ALT/SGPT(LOINC) 8 - 35 U/L ALT/SGPT 12 LAB ANION GAP(LOINC) 10 - 20 mmol/L ANION High GAP 28 LAB AGE(LOINC) years AGE 83 LAB eGFR(LOINC) 60 - 999 ML/MINUTE eGFR Low 5 LAB eGFR(AA)(LOINC) 60 - 999 ML/MINUTE eGFR(AA) Low 6 Result Comment: ACCORDING TO THE NATIONAL KIDNEY DISEASE EDUCATION PROGRAM(NKDE), A NORMAL eGFR IS A VALUE GREATER THAN OR EQUAL TO 60 ML/MIN/1.73 SQ METERS. CHRONIC KIDNEY DISEASE: <60mL/MIN/1.73 SQ METERS KIDNEY FAILURE: <15mL/MIN/1.73 SQ METERS THIS TEST SHOULD ONLY BE USED FOR PATIENTS 18 YEARS OF AGE AND OLDER. Performed By: #### [id number] #### [facility],[address] [place] [address] CBC Collected: 04/13/2018 Status: F Source: [facility] 3:33 PM [facility] REPOSITORY TYPE CODE TESTS RESULT OUT OF REFERENCE UNITS RANGE LAB WBC(LOINC) 4.50-10.80 10 3/mcL WBC 7.80 LAB RBCCT(LOINC 4.10-5.30 10 6/mcL ) Low RBC 3.53 LAB HGB(LOINC) 12.0-16.0 G/dL Low Hgb 11.4 LAB HCT(LOINC) 34.0-46.0 % Hct 34.6 LAB MCV(LOINC) 80.0-99.0 fL MCV 98.1 LAB MCH(LOINC) 27.0-33.0 pg MCH 32.3 LAB MCHC(LOINC) 32.0-36.0 G/dL MCHC 32.9 LAB RDW(LOINC) 11.5-15.5 % RDW 14.8 LAB PLT(LOINC) 150-450 10 3/mcL Platelet 313 LAB MPV(LOINC) 6.6-10.5 fL MPV 8.5 Performed By: #### CBC, ADIFF, ANEU, TSH, GFR, CMP, A1C #### [address] [address] .AUTO DIFF Collected: 04/13/2018 Status: F Source: [facility] 3:33 PM [facility] REPOSITORY TYPE CODE TESTS RESULT OUT OF REFERENCE UNITS RANGE LAB GISELLE(LOINC) 50.0-75.0 % High Neutrophil % 81.7 LAB LYM(LOINC) 20.0-40.0 % Low Lymphocyte % 8.3 LAB MON(LOINC) 2.0-13.0 % Monocyte % 8.6 LAB EO(LOINC) 0.0-6.0 % Eosinophil % 0.4 LAB BAS(LOINC) 0.0-2.5 % Basophil % 1.0 LAB ABLYM(LOIN 0.90-4.32 10 3/mcL C) Low Lymphocyte, 0.60 Absolute LAB EDMUNDO(LOINC 0.09-1.40 10 3/mcL ) Monocyte, 0.70 Absolute LAB AEOS(LOINC 0.00-0.65 10 3/mcL ) Eosinophil, 0.00 Absolute LAB ABAS(LOINC 0.00-0.27 10 3/mcL ) Basophil, 0.10 Absolute Performed By: #### CBC, ADIFF, ANEU, TSH, GFR, CMP, A1C #### [place] [address] .NEUABS Collected: 04/13/2018 Status: F Source: [facility] 3:33 PM [facility] REPOSITORY TYPE CODE TESTS RESULT OUT OF REFERENCE UNITS RANGE LAB ANEU(LOINC) 2.25-8.10 10 3/mcL Neutrophil, 6.40 Absolute Performed By: #### CBC, ADIFF, ANEU, TSH, GFR, CMP, A1C #### [address] [address] TSH Collected: 04/13/2018 Status: F Source: [facility] 3:33 PM [facility] REPOSITORY TYPE CODE TESTS RESULT OUT OF RANGE REFERENCE UNITS LAB TSH(LOINC) 0.360-3.740 mcIU/mL TSH 1.600 Result Comment: Please note as of 10/05/16 new pediatric reference intervals were added for this test. Performed By: #### CBC, ADIFF, ANEU, TSH, GFR, CMP, A1C #### [address] [address] .GFR Collected: 04/13/2018 Status: F Source: [facility] 3:33 PM [facility] REPOSITORY TYPE CODE TESTS RESULT OUT OF REFERENCE UNITS RANGE LAB GFRAA(LOINC ml/min/1.73 ) sqm GFR 7 [place] Result Comment: GFR Population mean for , Non- Americans Ages 20-29 = 116 mL/min/1.73 sq.m. Ages 30-39 = 107 mL/min/1.73 sq.m. Ages 40-49 = 99 mL/min/1.73 sq.m. Ages 50-59 = 93 mL/min/1.73 sq.m. Ages 60-69 = 85 mL/min/1.73 sq.m. Ages 70+ = 75 mL/min/1.73 sq.m. Chronic Kidney Disease: Less than 60 mL/min/1.73 square meters End Stage Renal Disease: Less than 15 mL/min/1.73 square meters LAB GFRNO(LOINC) ml/min/1.73sqm GFR Non- 6 Result Comment: GFR Population mean for , Non- Americans Ages 20-29 = 116 mL/min/1.73 sq.m. Ages 30-39 = 107 mL/min/1.73 sq.m. Ages 40-49 = 99 mL/min/1.73 sq.m. Ages 50-59 = 93 mL/min/1.73 sq.m. Ages 60-69 = 85 mL/min/1.73 sq.m. Ages 70+ = 75 mL/min/1.73 sq.m. Chronic Kidney Disease: Less than 60 mL/min/1.73 square meters End Stage Renal Disease: Less than 15 mL/min/1.73 square meters Performed By: #### CBC, ADIFF, ANEU, TSH, GFR, CMP, A1C #### [address] [address] CMP Collected: 04/13/2018 Status: F Source: [facility] 3:33 PM [facility] REPOSITORY TYPE CODE TESTS RESULT OUT OF RANGE REFERENCE UNITS LAB GLU(LOINC) 82-115 mg/dL High Glucose Level 230 LAB NA(LOINC) 136-145 mEq/L Low Sodium Level 128 LAB K(LOINC) 3.5-5.0 mEq/L Potassium Abnormal Level 6.4 Alert LAB CL(LOINC) 98-110 mEq/L Chloride 99 LAB CO2(LOINC) 22-32 mEq/L Low CO2 12 LAB EBAL(LOINC 4.0-15.0 mEq/L ) High Electrolyte Balance 17.0 LAB BUN(LOINC) 8.0-22.0 mg/dL BUN Abnormal 172.0 Alert LAB CRE(LOINC) 0.50-1.20 mg/dL High Creatinine Lvl (s) 7.12 LAB BC(LOINC) 10.0-22.0 ratio High BUN/Creatinine 24.2 Ratio LAB CA(LOINC) 8.4-10.1 mg/dL Calcium Lvl 9.5 LAB PROT(LOINC 6.0-8.5 G/dL ) Total Protein 7.9 LAB ALB(LOINC) 3.2-4.8 G/dL Albumin Level 3.3 LAB GLB(LOINC) 1.5-3.8 G/dL High Globulin 4.6 LAB AG(LOINC) 0.9-1.6 ratio Low A/G Ratio 0.7 LAB BILT(LOINC 0.2-1.2 mg/dL ) Bili Total 0.2 LAB AP(LOINC) 38-126 U/L Alk Phos 102 LAB AST(LOINC) 8-34 U/L AST/SGOT 14 LAB ALT(LOINC) 10-49 U/L ALT/SGPT 17 Performed By: #### CBC, ADIFF, ANEU, TSH, GFR, CMP, A1C #### [address] [address] A1C Collected: 04/13/2018 Status: F Source: [facility] 3:33 PM [facility] REPOSITORY TYPE CODE TESTS RESULT OUT OF RANGE REFERENCE UNITS LAB A1C(LOINC) 4.0-6.0 % High Hgb A1c 14.7 Performed By: #### CBC, ADIFF, ANEU, TSH, GFR, CMP, A1C #### [address] [address] ABDOMEN/PELVIS WITHOUT Observed: 04/02/2018 Status: F Source: BLANK CONT 8:43 AM [facility] REPOSITORY [facility] Imaging Services [address] [place] [address] Abdomen/Pelvis without Cont MR#: [id number] Acct: [id number] Name: ARLETTE GUALLPA Rep #: [id number] : 1935 F 83 From: Rojas Henriquez MD PCP: Steph SINCLAIR,Danny Status: REG CLI Study: Abdomen/Pelvis without Cont Date of Exam: 04/02/18 Exam# [id number] Ordering Dr: Nury Perales [employer]ER-C STUDY: CT ABDOMEN AND PELVIS WITHOUT CONTRAST REASON FOR EXAM: Female, 83 years old. Bilateral flank pain and hip pain. RADIATION DOSAGE (If Supplied By Facility): CTDIvol = ( 23.14 ) mGy, DLP = ( 1144.56 ) mGycm TECHNIQUE: Transaxial images were obtained from the dome of the diaphragm to the symphysis pubis without oral contrast, and without intravenous contrast. Sagittal and coronal images were reconstructed. Individualized dose optimization techniques were used for this CT. COMPARISON: None. FINDINGS: The visualized lung bases are unremarkable. Coronary artery calcification. Normal liver. Normal gallbladder and extrahepatic biliary system. Normal spleen. Normal pancreas. Normal bilateral adrenal glands. There is a 4.5 cm x 4.5 cm well-defined round cystic structure arising from the upper midportion of the right kidney in keeping with a cyst. There is also evidence of a 2.7 cm x 2 cm cyst in the mid posterior aspect of the right kidney. There is a 4 mm nonobstructive calculus in the lower pole calyx of the right kidney. Normal left kidney. There is a small hiatal hernia. Normal small intestine. There are multiple colonic diverticula consistent with diverticulosis. The appendix is visualized and appears normal. There is diffuse atherosclerotic calcification of the abdominal aorta, without a demonstrated aneurysm. Normal inferior vena cava. There is borderline retroperitoneal lymphadenopathy with enlarged nodes no greater than 10mm in the short axis diameter. Normal urinary bladder. There is a small umbilical hernia containing fat. There are diffuse degenerative changes of the visualized lumbar spine. CT/Abdomen/Pelvis without Cont IMPRESSION: Right renal cysts. Nonobstructive calculus in the lower pole calyx of the right kidney. Sigmoid diverticulosis. Electronically Signed: Rojas Henriquez MD at 9:31 EST Tel [phone], Service support , CC: Danny Choi MD; Nury Perales NP Handkerchief Cutter: Signed Observed: 02/16/2018 Status: F Source: [facility] 8:41 PM [facility] REPOSITORY . MICRO - Microbiology PROCEDURE: Urine Culture [*1] SOURCE: Urine BODY SITE: COLLECTED DATE/TIME: 02/16/2018 20:41 EST RECEIVED DATE/TIME: 02/16/2018 20:57 EST START DATE/TIME: 02/16/2018 20:57 EST FREE TEXT SOURCE: FINAL REPORTS Final Report [] Verified Date/Time/Personnel: 02/18/2018 04:55 EST >100,000 organisms per mL Mixed without predominant isolate(s). Sensitivity Testing not indicated. Probably contamination. Repeat culture suggested. PRELIMINARY REPORTS Preliminary Report [] Verified Date/Time/Personnel: 02/17/2018 08:06 EST No growth to date Performing Locations *1: This test was performed at: [facility], [address] [place] [address], [facility]- , [facility] Performed By: #### CUR #### [place] [address] CBC Collected: 01/01/2018 Status: F Source: [facility] 5:00 PM [facility] REPOSITORY TYPE CODE TESTS RESULT OUT OF RANGE REFERENCE UNITS LAB CBC(LOINC) CBC Result Comment: CBC-COMPLETE BLOOD COUNT LAB WBC(LOINC) 4.5 - 10.8 x 10EE3/UL WBC 6.4 LAB RBC(LOINC) 4.10 - x 10EE6/UL 5.30 RBC 4.24 LAB HEMOGLOBIN(LOINC 12.0 - g/dl ) 16.0 HEMOGLOBIN 13.2 LAB HEMATOCRIT(LOINC 34.0 - % ) 46.0 HEMATOCRIT 40.1 LAB MCV(LOINC) 80 - 99 fl MCV 95 LAB MCH(LOINC) 27 - 33 pg MCH 31 LAB MCHC(LOINC) 32 - 36 X10 3 MCHC 33 LAB RDW/CV(LOINC) 12.0 - % 15.6 RDW/CV High 16.6 LAB PLATELET(LOINC) 150 - 450 x10EE3/UL PLATELET 250 LAB MPV(LOINC) 6.6 - 10.5 fl MPV 9.0 Result Comment: AUTOMATED DIFFERENTIAL LAB NEUT %(LOINC) 46.0 - 76.0 % NEUT % 72.8 LAB LYMPH %(LOINC) 20.0 - 45.0 % Low LYMPH % 14.1 LAB MONOS %(LOINC) 0.0 - 10.0 % MONOS % High 10.7 LAB EO %(LOINC) 0.0 - 7.0 % EO % 1.7 LAB BASO %(LOINC) 0.0 - 2.0 % BASO % 0.7 LAB Lymph #(LOINC) 0.80 - 2.80 x10EE3/U L Lymph # 0.90 LAB Neut #(LOINC) 1.50 - 7.10 x10EE3/U L Neut # 4.70 LAB Cowley #(LOINC) 0.20 - 1.00 x10EE3/U L Cowley # 0.70 LAB EO #(LOINC) 0.00 - 0.50 x10EE3/U L EO # 0.10 LAB Baso #(LOINC) 0.00 - 0.10 x10EE3/U L Baso # 0.00 LAB MANUAL DIFF(LOINC) MANUAL DIFF N/A LAB MORPHOLOGY(LOINC ) MORPHOLOGY N/A Result Comment: {CD] Performed By: #### [id number] #### [facility],[address] [place] [address] CMP WITH EGFR Collected: 01/01/2018 Status: F Source: [facility] 5:00 PM [facility] REPOSITORY TYPE CODE TESTS RESULT OUT OF RANGE REFERENCE UNITS LAB CMP with eGFR(LOINC) CMP with eGFR Result Comment: COMPREHENSIVE METABOLIC PANEL LAB SODIUM(LOINC) 136 - 145 mmol/l SODIUM Low 134 LAB POTASSIUM(LOINC) 3.5 - 5.1 mmol/L POTASSIUM 4.1 LAB CHLORIDE(LOINC) 98 - 107 mmol/L CHLORIDE 98 LAB CO2(LOINC) 21.0 - mmol/L 31.0 CO2 24.8 LAB GLUCOSE(LOINC) 74 - 106 mg/dl GLUCOSE High 361 LAB BUN(LOINC) 6 - 20 mg/dl BUN High 42 LAB CREATININE(LOINC) 0.6 - 1.2 mg/dl High CREATININE 1.6 LAB AST/SGOT(LOINC) 13 - 39 U/L AST/SGOT 19 LAB ALK PHOS(LOINC) 38 - 126 U/L ALK PHOS 97 LAB CALCIUM(LOINC) 8.6 - mg/dl 10.2 CALCIUM 9.1 LAB TOTAL 6.4 - 8.3 g/dl PROTEIN(LOINC) TOTAL PROTEIN 7.2 LAB ALBUMIN(LOINC) 3.4 - 4.8 g/dL ALBUMIN 3.7 LAB GLOBULIN(LOINC) 1.5 - 3.8 G/DL GLOBULIN 3.5 LAB A/G RATIO(LOINC) 0.9 - 1.6 A/G RATIO 1.1 LAB TOTAL BILI(LOINC) 0.0 - 1.5 mg/dl TOTAL BILI 0.4 LAB B/C RATIO(LOINC) 0 - 30 ratio B/C RATIO 26 LAB ALT/SGPT(LOINC) 8 - 35 U/L ALT/SGPT 16 LAB ANION GAP(LOINC) 10 - 20 mmol/L ANION GAP 15 LAB AGE(LOINC) years AGE 82 LAB eGFR(LOINC) 60 - 999 ML/MINUTE eGFR Low 31 LAB eGFR(AA)(LOINC) 60 - 999 ML/MINUTE eGFR(AA) Low 37 Result Comment: ACCORDING TO THE NATIONAL KIDNEY DISEASE EDUCATION PROGRAM(NKDE), A NORMAL eGFR IS A VALUE GREATER THAN OR EQUAL TO 60 ML/MIN/1.73 SQ METERS. CHRONIC KIDNEY DISEASE: <60mL/MIN/1.73 SQ METERS KIDNEY FAILURE: <15mL/MIN/1.73 SQ METERS THIS TEST SHOULD ONLY BE USED FOR PATIENTS 18 YEARS OF AGE AND OLDER. Performed By: #### [id number] #### [facility],[address] [place] [address] LIPID PROFILE Collected: 01/01/2018 Status: F Source: [facility] 5:00 PM [facility] REPOSITORY TYPE CODE TESTS RESULT OUT OF REFERENCE UNITS RANGE LAB LIPID PROFILE(LOIN C) LIPID PROFILE Result Comment: LIPID PROFILE LAB TRIGLYCERIDE(LOINC) 0 - 150 mg/dl High TRIGLYCERIDE 559 LAB CHOLESTEROL(LOINC) 0 - 200 mg/dl CHOLESTEROL 177 LAB HDL(LOINC) 40 - 60 mg/dl HDL Low 26 LAB CHOL/HDL(LOINC) 0.0 - 5.0 CHOL/HDL High 6.8 LAB LDL(LOINC) 0 - 129 mg/dl LDL N/A Performed By: #### [id number] #### [place] [address] TSH Collected: 01/01/2018 Status: F Source: [facility] 5:00 [facility] REPOSITORY TYPE CODE TESTS RESULT OUT OF RANGE REFERENCE UNITS LAB TSH(LOINC) 0.34 - 5.60 uIU/ml TSH 2.56 Performed By: #### [id number] #### [place] [address] URIC ACID Collected: 01/01/2018 Status: F Source: [facility] 5:00 [facility] REPOSITORY TYPE CODE TESTS RESULT OUT OF RANGE REFERENCE UNITS LAB URIC 2.3 - 6.6 mg/dl ACID(LOINC) High URIC ACID 6.8 Performed By: #### [id number] #### [place] [id number] VITAMIN D, 25 Collected: 01/01/2018 Status: F Source: [facility] 5:00 [facility] REPOSITORY TYPE CODE TESTS RESULT OUT OF RANGE REFERENCE UNITS LAB VitD(LOINC) 30.00 - 100 ng/mL Low VitD 17.94 Result Comment: 25-OHD3 indicates both endogenous production and supplementation. 25-OHD2 is an indicator of exogenous sources, such as diet or supplementation. Therapy is based on measurement of Total 25-OHD, with levels <20 ng/mL indicative of Vitamin D deficiency, while levels between 20 ng/mL and 30 ng/mL suggest insufficiency. Optimal levels are >=30ng/mL. Vitamin D, 25-OH D3 Not Established Vitamin D, 25-OH D2 Not Established Performed By: #### [id number] #### [address] [place] [address] HGB A1C Collected: 01/01/2018 Status: F Source: [facility] 5:00 PM [facility] REPOSITORY TYPE CODE TESTS RESULT OUT OF RANGE REFERENCE UNITS LAB HGB 4.4 - 6.4 % A1C(LOINC) High HGB A1C 12.6 Result Comment: {HB] {A1] Performed By: #### [id number] #### [facility],[address] [place] [id number] Observed: 11/20/2017 Status: F Source: [facility] [employer] [facility] 11:46 AM [facility] REPOSITORY . MICRO - Microbiology PROCEDURE: Urine Culture [*1] SOURCE: Urine BODY SITE: COLLECTED DATE/TIME: 11/20/2017 11:46 EDT RECEIVED DATE/TIME: 11/20/2017 20:16 EDT START DATE/TIME: 11/20/2017 20:16 EDT FREE TEXT SOURCE: FINAL REPORTS Final Report [] Verified Date/Time/Personnel: 11/21/2017 14:21 EDT 20,000 organisms per mL Mixed without predominant isolate(s). Sensitivity Testing not indicated. Probably contamination. Repeat culture suggested. Performing Locations *1: This test was performed at: [facility], [address] [place] [address], [address] [place] [address] Performed By: #### CUR #### [place] [address] Observed: 10/25/2017 Status: F Source: [facility] 10:30 AM [facility] REPOSITORY . MICRO - Microbiology PROCEDURE: Urine Culture [*1] SOURCE: Urine BODY SITE: COLLECTED DATE/TIME: 10/25/2017 10:30 EDT RECEIVED DATE/TIME: 10/25/2017 20:42 EDT START DATE/TIME: 10/25/2017 20:42 EDT FREE TEXT SOURCE: FINAL REPORTS Final Report [] Verified Date/Time/Personnel: 10/27/2017 08:02 EDT 100,000 organisms per mL Mixed without predominant isolate(s). Sensitivity Testing not indicated. Probably contamination. Repeat culture suggested. PRELIMINARY REPORTS Preliminary Report [] Verified Date/Time/Personnel: 10/26/2017 13:38 EDT Culture results pending. Performing Locations *1: This test was performed at: [facility], [address] [place] [address], [address] [place] [address] Performed By: #### CUR #### [address] [address] Observed: 10/11/2017 Status: F Source: [facility] 10:42 AM [facility] REPOSITORY . MICRO - Microbiology PROCEDURE: Urine Culture [*1] SOURCE: Urine BODY SITE: COLLECTED DATE/TIME: 10/11/2017 10:42 EDT RECEIVED DATE/TIME: 10/11/2017 21:40 EDT START DATE/TIME: 10/11/2017 21:40 EDT FREE TEXT SOURCE: FINAL REPORTS Final Report [] Verified Date/Time/Personnel: 10/13/2017 07:16 EDT >100,000 organisms per mL Mixed without predominant isolate(s). Sensitivity Testing not indicated. Probably contamination. Repeat culture suggested. PRELIMINARY REPORTS Preliminary Report [] Verified Date/Time/Personnel: 10/12/2017 10:30 EDT Culture results pending. Performing Locations *1: This test was performed at: [facility], [address] [place] [address], [address] [place] [address] Performed By: #### CUR #### [place] [address] BASIC METABOLIC Collected: 08/06/2017 Status: F Source: BLANK PROFILE (BMP) 12:11 PM [facility] REPOSITORY TYPE CODE TESTS RESULT OUT OF RANGE REFERENCE UNITS LAB L501.0100 74-106 mg/dL High GLU 217 Result Comment: Glucose result greater than or equal to 200 mg/dL suggests DIABETES MELLITUS per A.D.A. criteria. Please note revised GLUCOSE reference range effective 2017. LAB L501.1000 7-18 mg/dL High BUN 38 LAB L501.1100 0.55-1.02 mg/dL High CREAT,SERUM 1.47 Result Comment: The validity of the calculated GFR AND GFRAA in patients over 70 years has not been determined. Clinical correlation is essential. LAB L501.1110 >60 mL/min Low EST GFR 36 Result Comment: Non- GFR Calc LAB L501.1115 >60 mL/min Low EST GFR - AA 44 Result Comment: GFR Calc LAB L501.1300 10-20 RATIO High BUN/CRE 25.9 LAB L501.2200 8.5-10.1 mg/dL CA Normal 9.0 LAB L501.5300 136-145 mmol/L NA Normal 138 LAB L501.5600 3.5-5.1 mmol/L K Normal 4.7 Result Comment: Slight Hemolysis, Result may be falsely increased. LAB L501.5900 98-107 mmol/L Normal CL 100 LAB L501.6100 21.0-32.0 mmol/L Normal CO2 29.0 LAB L501.6200 5-15 Normal 9 GAP Performed By: #### L500.2500 #### [facility] [address] [place], [address] DISCHARGE SUMMARY Observed: 08/04/2017 Status: F Source: [facility] 10:51 AM [facility] DISCHARGE SUMMARY NAME ACCOUNT SEX AGE ADMIT DISCHARGE PT MED. RECORD# NUMBER DATE DATE TYPE ARLETTE GUALLPA [id number] F 82 07/17/17 07/22/17 1 [id number] ROOM: 315MO DATE OF : 1935 DICTATING PHYSICIAN: Sergio Fletcher FINAL DIAGNOSES: 1. Sepsis, resolved. 2. Healthcare-acquired pneumonia, multilobe. 3. Atrial fibrillation. HISTORY OF PRESENT ILLNESS: This is an 82-year-old female with multiple medical problems, including diabetes mellitus type 2, hypertension, hyperlipidemia, chronic venous stasis with lymphedema, anxiety, and recurrent kidney stones. She had replacement of a ureteral stent with stone removal. She was started on ciprofloxacin and discharged home. She came back to the Emergency Room with a fever and shaking chills. No chest pain or urinary symptoms. In the Emergency Room, her temperature was 102 and oxygen saturation 74%, improved with oxygen support. She had an elevated lactate, elevated white count, and bilateral infiltrates on her x-ray. In addition, the patient's urine had a large amount of white blood cells. DIAGNOSTIC DATA: White count on admission was 11.8, hemoglobin 9.9, and hematocrit 30.5. On discharge, white count was 6.7, hemoglobin 10.3, and hematocrit 31.5. Lactate initially was 19.6; it came down to 10.7. Iron was 15. Vitamin B12 was 695. Hemoglobin A1c was 7.3%. On discharge, sodium was 138, potassium 3.9, CO2 of 31.6, BUN 30, creatinine 1.3, and glucose 107. Urinalysis showed over 50 WBCs, negative nitrites, and 500 leukocytes. Blood cultures with no growth at 72 hours. Urine culture with no growth at 48 hours. Influenza A and B were negative. Diagnostic studies: Chest x-ray, AP, completed on admission with densities in both lung bases, left greater than the right. HOSPITAL COURSE: For a full history and physical, please see chart. For brief summary, see above. She was admitted to the hospital with sepsis secondary to pneumonia as well as abnormal urinalysis. She was placed on IV fluids and broad-spectrum IV antibiotics with meropenem and azithromycin to treat both the urine and the pneumonia. She had a repeat lactate. She had some renal impairment with severe sepsis. She improved with treatment. She has had episodes in the past of atrial fibrillation. She had some irregular heartbeats during the hospital stay. EKG revealed the presence of atrial fibrillation. She had no chest pain. No shortness of breath. She had a CHADS2-VASc score and would benefit from long-term anticoagulation. She was placed initially on Lovenox and on metoprolol. Cardizem was added, and previous echocardiogram was reviewed. Benefits and risks of anticoagulation were discussed Page 1 of 2 ARLETTE GUALLPA Discharge Summary with the patient, and she was agreeable to stay on anticoagulation. She will continue on beta blockers and calcium channel blockers, and Eliquis was initiated. Today, on the date of discharge, she feels she is ready to go home. She has no chest pain. No shortness of breath. Blood pressure is 127/62, heart rate 66, respirations 18, temperature 98.1, and oxygen saturation 93% on 1 liter. This is a well-nourished, well-developed, obese female in no acute distress. Lungs with normal respiratory effort, diminished in the bases, otherwise clear. Heart is irregularly irregular. Extremities reveal chronic lymphedema. Discharge instructions were discussed with her in detail, and she was discharged home in stable condition with the above instructions. CONDITION ON DISCHARGE: Improved. MEDICATIONS ON DISCHARGE: (1) Probiotic one capsule daily for a month. (2) Eliquis 5 mg twice daily. (3) Diltiazem extended release 120 mg daily. (4) Metoprolol 50 mg twice daily. (5) Ceftin 500 mg twice daily for 7 days. (6) Acetaminophen 650 mg every 4 hours p.r.n. All other medications are as at home, including: (7) Allopurinol 100 mg daily. (8) Pelham 5/325 mg one tab every 4 hours p.r.n. (9) Potassium citrate 10 mEq 3 times daily. (10) Glipizide ER 2.5 mg daily. (11) Centrum Silver one tab daily. (12) Omeprazole 20 mg daily. (13) Aspirin 81 mg daily. (14) Ferrous sulfate 325 mg twice daily. DISCHARGE INSTRUCTIONS/PLAN: Increase activity as tolerated. Wf-rrdti-[id number] diet. Resume home health care. Follow up with Dr. Danny Choi in the [place] office on July 31, 2017, at 11:15 a.m. Dictated by simeon Hernandez for Dr. Fletcher. I examined the patient myself, the above is accurate E&M done by me Lor Fletcher M.D. Dictated By: Sergio Fletcher MD 07/22/17 14:00 JOB #: [id number] Transcribed By: emily 07/23/17 10:20 Electronically signed by: ZENY FLETCHER MD 08/04/17 10:51 Page 2 of 2 ARLETTE GUALLPA Discharge Summary PROGRESS NOTE Observed: 08/04/2017 Status: F Source: [facility] 10:43 AM [facility] PROGRESS NOTE NAME ACCOUNT SEX AGE ADMIT DISCHARGE PT MED. RECORD# NUMBER DATE DATE TYPE ARLETTE GUALLPA [id number] F 82 07/17/17 1 [id number] ROOM: 315[facility] DATE OF : 1935 DICTATING PHYSICIAN: Sergio Fletcher DATE OF SERVICE: July 21, 2017 SUBJECTIVE: Mrs. Guallpa has been doing basically the same. She denied any chest pain or shortness of breath. She does not feel any palpitations. OBJECTIVE: Vital signs has revealed a heart rate between 77 and 98, respirations 14, blood pressure 126/49, saturation on room air is 91%. HEENT: Pupils are round, equal, and reactive. Tongue to midline. Neck is supple. Lungs revealed decreased breath sounds in the bases with crackles. The heart was irregular. Abdomen is soft. DIAGNOSTIC DATA: White count is 7.3, hemoglobin 9.5, hematocrit 28.7. Iron is 15, which is quite low. Normal B12, folate, and she has also sodium of 135, potassium 3.9, bicarbonate is 28.5, BUN 32, creatinine 1.4. ASSESSMENT/PLAN: 1. Sepsis - resolving at this point. 2. Bilateral pneumonia - improving. 3. Atrial fibrillation - controlled rate now. The patient is on a combination of beta norm and anticoagulant. We will go ahead and start Eliquis at this point. 4. The above was discussed with the patient and her son. They are agreeable with the above plan. The patient did have an echocardiogram a month ago. Dictated By: Sergio Fletcher MD 07/21/17 15:29 JOB #: [id number] Transcribed By: navin 07/21/17 15:58 Electronically signed by: ZENY FLETCHER MD 08/04/17 10:43 Page 1 of 1 MIGUEL ARLETTE Nataliia Progress Note PROGRESS NOTE Observed: 08/04/2017 Status: F Source: [facility] 10:41 AM [facility] PROGRESS NOTE NAME ACCOUNT SEX AGE ADMIT DISCHARGE PT MED. RECORD# NUMBER DATE DATE TYPE MIGUEL ARLETTE Nataliia [id number] F 82 07/17/17 1 [id number] ROOM: [facility] DATE OF : 1935 DICTATING PHYSICIAN: Sergio Fletcher DATE OF SERVICE: 07/20/2017 SUBJECTIVE: The patient did develop some irregular heart rate today. EKG confirmed the presence of atrial fibrillation. She denies any symptoms of palpitations, chest pain. Her shortness of breath has been improving. OBJECTIVE: She is on 2 liters of oxygen. Saturation is 90 to 93%. Heart rate is around 96%. Blood pressure is 120/76. HEENT: Pupils are round and equally reactive. Tongue to midline. Neck was supple. Lungs revealed decreased breath sounds in the bases. The heart was irregular. Abdomen is soft. Extremities revealed bilateral edema. DIAGNOSTIC DATA: Lab data today has revealed the following: White count is 7.7, hemoglobin 9.4, hematocrit 28.9. Iron was low at 15, vitamin B12 was 695. Folate normal. Sodium 132, potassium 3.9, BUN 31, creatinine 1.5. ASSESSMENT/PLAN: 1. Sepsis, improving at this point. 2. Bilateral basilar infiltrate currently on treatment. 3. Atrial fibrillation. The patient did have episodes in the past of atrial fibrillation and reverted back to sinus rhythm. She was not anticoagulated than. She has relatively CHADS2 risk score. I believe she may benefit from snf anticoagulation. I went ahead and I did increase her Lovenox to twice a day. Meanwhile, we will continue with metoprolol at this point for rate control. The patient had echocardiogram not long ago and at the time, her ejection fraction was 55 to 60%. She did have mildly dilated left atrium and grade 2 diastolic dysfunction. No need to repeat the study again. Dictated By: Sergio Fletcher MD 07/20/17 19:32 JOB #: [id number] Transcribed By: pedro 07/20/17 23:45 Electronically signed by: ZENY FLETCHER MD 08/04/17 10:41 Page 1 of 2 ARLETTE GUALLPA Progress Note Page 2 of 2 ARLETTE GUALLPA Progress Note PROGRESS NOTE Observed: 08/04/2017 Status: F Source: [facility] 10:35 AM [facility] PROGRESS NOTE NAME ACCOUNT SEX AGE ADMIT DISCHARGE PT MED. RECORD# NUMBER DATE DATE TYPE ARLETTE GUALLPA [id number] F 82 07/17/17 1 [id number] ROOM: [facility] DATE OF : 1935 DICTATING PHYSICIAN: Sergio Fletcher DATE OF SERVICE: 07/19/2017 SUBJECTIVE: The patient continues to have edema of the lower extremities. She has some cough, mostly nonproductive. OBJECTIVE: She is afebrile. Blood pressure 131/62, respirations 14, heart rate 73. She is on 3 liters of oxygen, saturation 94%. HEENT: Pupils are equally round and reactive. Tongue to midline. Neck was supple. Lungs reveal decreased breath sounds in the bases. The heart was regular. Abdomen is soft. Extremities reveal bilateral edema. DIAGNOSTIC DATA: White count 10,000, hemoglobin 9.1, hematocrit 28.1. Sodium 135, potassium 3.9, chloride 101, bicarbonate 29.4, BUN 30, creatinine 1.9. ASSESSMENT: 1. Sepsis, most likely secondary to pneumonia. She appears to be slowly improving at this point. 2. Bilateral basilar pneumonia of the lower lobes with hypoxia. 3. Diabetes, stable. 4. Venous stasis, appears to be stable. 5. Morbid obesity with a body mass index of 44.02. PLAN: Continue current measures. Reassess the situation in the morning. The patient has some degree of anemia, likely of chronic illness. I will check iron, B12, and folate. Dictated By: Sergio Fletcher MD 07/19/17 16:32 JOB #: [id number] Transcribed By: pedro 07/19/17 17:58 Electronically signed by: ZENY FLETCHER MD 08/04/17 10:35 Page 1 of 2 ARLETTE GUALLPA Progress Note Page 2 of 2 ARLETTE GUALLPA Progress Note PROGRESS NOTE Observed: 08/04/2017 Status: F Source: [facility] 10:33 AM [facility] PROGRESS NOTE NAME ACCOUNT SEX AGE ADMIT DISCHARGE PT MED. RECORD# NUMBER DATE DATE TYPE ARLETTE GUALLPA [id number] F 82 07/17/17 1 [id number] ROOM: [facility] DATE OF : 1935 DICTATING PHYSICIAN: Sergio Fletcher DATE OF SERVICE: 07/17/2017 SUBJECTIVE: The patient is doing fairly well. She continues to be short of breath on oxygen. She has fairly good diuresis. She denies any headaches. OBJECTIVE: Her fever has come down from 102 on admission. The highest since is 99.4. Blood pressure 162/77. HEENT: Pupils are round and equally reactive. Tongue to midline. Neck was supple. Lungs revealed crackles in the bases. The heart was regular and distant. Abdomen was soft. Extremities revealed bilateral edema. DIAGNOSTIC DATA: White count is 10.2, hemoglobin 9, hematocrit 27.3. Hemoglobin Ac1 is 7.3, BUN 38, creatinine 3.9, bicarbonate 27.1. BUN 25, creatinine 1.7. ASSESSMENT: 1. Acute community acquired pneumonia, bilateral, currently on treatment. 2. Sepsis, has responded to current treatment with antibiotics. Her fever is coming down. 3. Obesity. Complicating factor. 4. Venous stasis, appears to be stable. PLAN: We will go ahead and discontinue IV fluids. Dictated By: Sergio Fletcher MD 07/18/17 13:25 JOB #: [id number] Transcribed By: pedro 07/18/17 16:16 Electronically signed by: ZENY FLETCHER MD 08/04/17 10:33 Page 1 of 1 ARLETTE GUALLPA Progress Note HISTORY AND PHYSICAL Observed: 08/04/2017 Status: F Source: [facility] EXAM 10:26 AM [facility] HISTORY & PHYSICAL NAME ACCOUNT SEX AGE ADMIT DISCHARGE PT MED. RECORD# NUMBER DATE DATE TYPE ARLETTE GUALLPA [id number] F 82 07/17/17 1 [id number] ROOM: [facility] DATE OF : [birth year] DICTATING PHYSICIAN: Sergio Fletcher ADMITTING DIAGNOSIS: Sepsis secondary to likely pneumonia or UTI or both. CHIEF COMPLAINT: Fever and chills. HISTORY OF PRESENT ILLNESS: This is an 82-year-old lady who was in her usual state of health. The patient did have replacement of ureteral stent with stone removal and she was started on antibiotic with Cipro and discharged home. Today, the patient presented back to the emergency room with fever and chills. She did not have any significant chest pain or urinary burning, but in the emergency room her temperature was 102, saturation on room air was 74%, and she did require oxygen replacement then and this improved her saturation. She did have elevated white count and slightly elevated lactate, and there was infiltrate on the chest x-ray, but in addition the patient's urine was loaded with white blood cells. PAST MEDICAL HISTORY: Remarkable for (1) Diabetes mellitus type 2 on oral agent. (2) Hypertension. (3) Hyperlipidemia. (4) Hypothyroidism. (5) Chronic lower extremity edema. (6) Chronic venous stasis. (7) Anxiety disorder. (8) Irritable bowel syndrome. (9) Allergic rhinitis. (10) Previous gastritis. (11) Obesity. (12) Recurrent kidney stone. (13) Gout. PAST SURGICAL HISTORY: The patient did have a recent stent replacement of the urethra with extraction of the stone according to her. This was done via laser. MEDICATIONS: The patient is on (1) Probiotic daily. (2) Allopurinol 100 mg daily. (3) Aspirin 81 mg daily. (4) Centrum Silver 1 tablet daily. (5) Cipro 500 mg twice daily. (6) Ferrous sulfate 325 mg twice daily. (7) Furosemide 40 mg daily. (8) Levothyroxine 137 mcg daily. (9) Metoprolol tartrate 50 mg twice daily. (10) Pelham 1 tablet every 4 hours as needed. (11) Omeprazole 20 mg daily. (12) Potassium citrate 10 mEq 3 times daily. (13) ProAir 0.09 inhalation suspension 2 puffs 3 to 4 times a day as needed. (14) Tylenol 325 mg every 4 hours as needed. (15) Amlodipine 10 mg daily. (16) Glipizide ER 2.5 mg daily. ALLERGIES: The patient is intolerant to TAYLOR inhibitors which cause her severe cough, Elavil which caused her burning in the face. FAMILY HISTORY: The patient's father had a myocardial infarction and at age 78. Mother had myocardial infarction and she in her 80s. One sister with breast cancer, Page 1 of 3 ARLETTE GUALLPA History & Physical and she had a son who from myocardial infarction at age 45. SOCIAL HISTORY: The patient is . She lives with son. She does not smoke and does not drink alcohol. REVIEW OF SYSTEMS: The patient did have fever, chills. She did not feel good. She was weak, slightly confused. She had some generalized ache. No headache, blurry vision, earache, or sore throat. No chest pain. She did have shortness of breath and no significant cough. No nausea, vomiting, abdominal pain, diarrhea, constipation, difficulty with urination, burning, or any other urinary symptoms for that fact. She does have swelling of the lower extremities, which has not changed much. PHYSICAL EXAMINATION GENERAL APPEARANCE: This 82-year-old lady is lying in bed. She does appear to be fairly comfortable at the time of assessment, alert and oriented. VITAL SIGNS: Highest temperature was 102 and she was hypoxic. HEENT: Pupils are round, equal, and reactive. Normal eye motion. No congestion. No icterus. No sinus tenderness. Tongue to midline. NECK: Neck is supple. LUNGS: Revealed decreased breath sounds in the bases. HEART: Regular. ABDOMEN: Soft. No tenderness. No rigidity. Bowel sounds were positive. EXTREMITIES: Revealed bilateral edema with chronic skin changes of venous stasis. DIAGNOSTIC DATA: Laboratory data has revealed the patient's white count of 11.8, hemoglobin 9.9, hematocrit 30.5, platelets are 366,000. She has significant left shift. Lactate was 19.6. Sodium 137, potassium 3.9, chloride 103, bicarbonate 25.8, BUN 25, creatinine 0.6. The rest of her blood work was unremarkable. UA revealed greater than 50 white blood cells, 5 to 10 red blood cells. IMPRESSION: 1. Sepsis most likely secondary to urinary tract infection versus pneumonia. The patient does have infiltrate on the chest x-ray with the hypoxemia both are a possibility. The patient has been treated with Cipro both surgically and this is another complicating factor. 2. Bilateral pneumonia in the lower extremities with hypoxemia. 3. Possible urinary tract infection. 4. Diabetes, complicating factor. Page 2 of 3 ARLETTE GUALLPA History & Physical 5. Obesity with a body mass index of 43.46. 6. Venous stasis with chronic pedal edema at risk for complications. PLAN: 1. Admit the patient to the hospital. 2. Careful IV fluid with resuscitation due to the bilateral pedal edema. 3. Broad spectrum antibiotic with meropenem and azithromycin to treat both pneumonia, as well as urinary tract infection. 4. Monitor electrolytes and oxygenation. 5. The patient did have repeated lactate, received the antibiotic appropriately. She does have some renal impairment, but her sepsis is not considered severe and she will be treated accordingly. As I mentioned, we have to be careful with the IV fluid due to the significant edema to prevent fluid overload. Dictated By: Sergio Fletcher MD 07/17/17 18:08 JOB #: [id number] Transcribed By: navin 07/17/17 18:59 Electronically signed by: ZENY FLETCHER MD 08/04/17 10:26 Update to H&P: [ ] No changes: I have examined the patient and reviewed the H&P and there are no changes. [ ] As previously dictated with the following changes: PHYSICIAN SIGNATURE: TIME: DATE: Page 3 of 3 ARLETTE GUALLPA History & Physical RENAL FUNCTION PANEL Collected: 07/29/2017 Status: F Source: [facility] 11:12 [facility] REPOSITORY TYPE CODE TESTS RESULT OUT OF REFERENCE UNITS RANGE LAB RENAL FUNCTION PANEL(LOINC) RENAL FUNCTION PANEL Result Comment: RENAL FUNCTION PANEL LAB SODIUM(LOINC) 136 - 145 mmol/l SODIUM 136 LAB POTASSIUM(LOINC) 3.5 - 5.1 mmol/L High POTASSIUM 5.2 LAB CHLORIDE(LOINC) 98 - 107 mmol/L CHLORIDE 99 LAB GLUCOSE(LOINC) 74 - 106 mg/dl GLUCOSE High 178 LAB BUN(LOINC) 6 - 20 mg/dl BUN High 32 LAB CREATININE(LOINC) 0.6 - 1.2 mg/dl High CREATININE 1.5 LAB CALCIUM(LOINC) 8.6 - mg/dl 10.2 CALCIUM 9.1 LAB ALBUMIN(LOINC) 3.4 - 4.8 g/dL ALBUMIN 3.4 LAB B/C RATIO(LOINC) 0 - 30 ratio B/C RATIO 21 LAB CO2(LOINC) 21.0 - mmol/L 31.0 CO2 28.6 LAB PHOSPHORUS(LOINC) 2.7 - 4.5 mg/dl PHOSPHORUS 4.1 Performed By: #### [id number] #### [facility] [address] [facility] Observed: 07/22/2017 Status: F [facility] REPORT NAME ACCOUNT SEX AGE ADMIT DISCHARGE PT MED. RECORD# NUMBER DATE DATE TYPE ARLETTE GUALLPA [id number] F 82 06/20/17 3 [id number] ROOM: ER DATE OF : 1935 DICTATING PHYSICIAN: Conor Leung CHIEF COMPLAINT: Left flank pain. HISTORY OF PRESENT ILLNESS: This is an 82-year-old female who presents complaining of left flank pain that started this morning. Patient reports that she does have a history of kidney stones and believes she may have one, as this feels similar. The patient has not had any vomiting thus far, fevers or chills, but she does report some nausea. She denies any associated chest pain or shortness of breath, dysuria, or hematuria. PAST MEDICAL HISTORY: Remarkable for diabetes, hypertension, hyperlipidemia, hypothyroidism, chronic venous stasis, anxiety, irritable bowel syndrome, obesity. PAST SURGICAL HISTORY: She has no previous surgical history. ALLERGIES: No known drug allergies. SOCIAL HISTORY: She lives at home with her family. Does not smoke, use alcohol or illicit drugs. She is up-to-date on immunizations. REVIEW OF SYSTEMS: A 10-point review of systems is obtained and is positive for flank pain, is otherwise negative. PHYSICAL EXAMINATION: Vital signs: Blood pressure is 180/100, pulse is 71, respiratory rate is 18, temperature is 97.9, pulse oximetry 92% on room air. In general, the patient is alert, awake, and in no acute distress, although she does appear uncomfortable. Her head is normocephalic, atraumatic. Pupils are equal, round, reactive to light and accommodation. Extraocular muscles are intact. Mucous membranes are moist. Her neck is supple. Trachea is midline. Cardiac examination reveals regular rate and rhythm. No murmurs appreciated. Lungs are clear to auscultation bilaterally. Her abdomen is soft, nondistended, it is tender in the left lower quadrant and left flank. There is no rebound, guarding, or rigidity. Her lower extremities demonstrate chronic venous stasis with significant skin changes. They are edematous and erythematous. This is a chronic change for her. There is nothing acute. Otherwise, peripheral pulses are intact and equal bilaterally. She has normal muscle strength and full range of motion. Motor and sensory are grossly intact. She is appropriate mood and behavior. DIAGNOSTIC DATA: EKG was obtained. Initial EKG reveals normal sinus rhythm at 68 Page 1 of 2 ARLETTE GUALLPA Emergency Room Report with a right bundle branch block. There are no acute ST elevations or depressions. It is otherwise unremarkable. The patient's lab work reveals slightly elevated white count at 11,000. Otherwise, her lab work was unremarkable with the exception of her urinalysis which does show findings consistent with UTI. EMERGENCY DEPARTMENT COURSE AND TREATMENT: Upon arrival the patient is afebrile, nontoxic and in no acute distress, although she does appear uncomfortable. I suspect that the patient could have a kidney stone and she feels like she has a kidney stone and she has a history of them. Basic lab work will be obtained and a CAT scan was ordered. After arriving back from CAT scan, the patient was noted to be tachycardic on the monitor. An EKG was obtained, which reveals atrial fibrillation with RVR at a rate of 132. There is continued to be right bundle branch block, but no acute ST changes. This lasted for approximately 10 minutes and the patient converted again back to normal sinus rhythm. The patient's CT scan does show a large left sided ureterolithiasis at 11 mm and with hydronephrosis and perinephric fat stranding. The patient was given Dilaudid for pain, which did seem to improve her symptoms. She was also given a gram of Rocephin and her urine was sent for culture. As there is no Urology available here at this facility, [facility] was contacted and Internal Medicine, Dr. Mac was agreeable to accept the patient. Urology will be seeing the patient when she arrives at the hospital. Arrangements for transfer were made. The patient will be transported via EMS when they arrive. DIAGNOSES: 1. Left-sided ureterolithiasis with hydronephrosis. 2. Urinary tract infection. 3. New onset atrial fibrillation. D: Conor Leung DO TD: 06/20/17 17:21 JOB #: [id number] Transcribed by: so Electronically signed by: DR. CONOR LEUNG D.O. 05/01/18 07:09 Page 2 of 2 ARLETTE GUALLPA Emergency Room Report BMP WITH EGFR Collected: 07/22/2017 Status: F Source: [facility] 5:26 AM [facility] REPOSITORY TYPE CODE TESTS RESULT OUT OF RANGE REFERENCE UNITS LAB BMP with eGFR(LOINC) BMP with eGFR Result Comment: BASIC METABOLIC PANEL LAB SODIUM(LOINC) 136 - 145 mmol/l SODIUM 138 LAB POTASSIUM(LOINC) 3.5 - 5.1 mmol/L POTASSIUM 3.9 LAB CHLORIDE(LOINC) 98 - 107 mmol/L CHLORIDE 98 LAB CO2(LOINC) 21.0 - mmol/L 31.0 CO2 High 31.6 LAB GLUCOSE(LOINC) 74 - 106 mg/dl GLUCOSE High 107 LAB BUN(LOINC) 6 - 20 mg/dl BUN High 30 LAB CREATININE(LOINC) 0.6 - 1.2 mg/dl High CREATININE 1.3 LAB CALCIUM(LOINC) 8.6 - mg/dl 10.2 CALCIUM 9.0 LAB ANION GAP(LOINC) 10 - 20 mmol/L ANION GAP 12 LAB AGE(LOINC) years AGE 82 LAB eGFR(LOINC) 60 - 999 ML/MINUTE eGFR Low 39 LAB eGFR(AA)(LOINC) 60 - 999 ML/MINUTE eGFR(AA) Low 48 Result Comment: ACCORDING TO THE NATIONAL KIDNEY DISEASE EDUCATION PROGRAM(NKDE), A NORMAL eGFR IS A VALUE GREATER THAN OR EQUAL TO 60 ML/MIN/1.73 SQ METERS. CHRONIC KIDNEY DISEASE: <60mL/MIN/1.73 SQ METERS KIDNEY FAILURE: <15mL/MIN/1.73 SQ METERS THIS TEST SHOULD ONLY BE USED FOR PATIENTS 18 YEARS OF AGE AND OLDER. Performed By: #### [id number] #### [facility],[address] [place] [address] CBC Collected: 07/22/2017 Status: C Source: [facility] 5:26 AM [facility] REPOSITORY TYPE CODE TESTS RESULT OUT OF RANGE REFERENCE UNITS LAB CBC(LOINC) CBC Result Comment: CORRECTED REPORT CBC-COMPLETE BLOOD COUNT LAB WBC(LOINC) 4.5 - 10.8 x 10EE3/UL WBC 6.7 LAB RBC(LOINC) 4.10 - x 10EE6/UL 5.30 RBC Low 3.67 LAB HEMOGLOBIN(LOINC 12.0 - g/dl ) 16.0 Low HEMOGLOBIN 10.3 LAB HEMATOCRIT(LOINC 34.0 - % ) 46.0 Low HEMATOCRIT 31.5 LAB MCV(LOINC) 80 - 99 fl MCV 86 LAB MCH(LOINC) 27 - 33 pg MCH 28 LAB MCHC(LOINC) 32 - 36 X10 3 MCHC 33 LAB RDW/CV(LOINC) 12.0 - % 15.6 RDW/CV High 16.8 LAB PLATELET(LOINC) 150 - 450 x10EE3/UL PLATELET 272 LAB MPV(LOINC) 6.6 - 10.5 fl MPV 7.8 Result Comment: AUTOMATED DIFFERENTIAL LAB NEUT %(LOINC) 46.0 - % 76.0 NEUT % 61.0 LAB LYMPH %(LOINC) 20.0 - % Low 45.0 LYMPH % 18.8 LAB MONOS %(LOINC) 0.0 - 10.0 % MONOS % 12.6 High LAB EO %(LOINC) 0.0 - 7.0 % EO % 6.6 LAB BASO %(LOINC) 0.0 - 2.0 % BASO % 1.0 LAB Lymph #(LOINC) 0.80 - x10EE3/ 2.80 UL Lymph # 1.30 LAB Neut #(LOINC) 1.50 - x10EE3/ 7.10 UL Neut # 4.10 LAB Cowley #(LOINC) 0.20 - x10EE3/ 1.00 UL Cowley # 0.80 LAB EO #(LOINC) 0.00 - x10EE3/ 0.50 UL EO # 0.40 LAB Baso #(LOINC) 0.00 - x10EE3/ 0.10 UL Baso # 0.10 LAB MANUAL DIFF(LOINC) MANUAL DIFF SEE BELOW LAB MORPHOLOGY(LOIN C) MORPHOLOGY REVIEWED Result Comment: {CD] FOLLOWING RESULTS REPORTED IN ERROR MANUAL DIFF N/A MORPHOLOGY N/A LAB SEGS(LOINC) 50 - 70 % 58 SEGS LAB LYMPH(LOINC) 20 - 40 % 20 LYMPH LAB MONOS(LOINC) 0 - 8 % 10 High MONOS LAB EO(LOINC) 0.0 - 4.0 % High EO 9.0 LAB BASO(LOINC) 0.0 - 2.0 % BASO 1.0 LAB META(LOINC) 0 - 1 % 2 High META LAB CELL COUNT(LOINC) CELL COUNT 100 LAB ERROR DUE TO(LOINC) NO ERROR DUE TO REVIEW Performed By: #### [id number] #### [facility],[address] [place] [address] EMERGENCY REPORT Observed: 07/21/2017 Status: F Source: [facility] 7:37 AM [facility] EMERGENCY ROOM REPORT NAME ACCOUNT SEX AGE ADMIT DISCHARGE PT MED. RECORD# NUMBER DATE DATE TYPE ARLETTE GUALLPA [id number] F 82 07/17/17 1 [id number] ROOM: [facility] DATE OF : 1935 DICTATING PHYSICIAN: Thuan Choi CHIEF COMPLAINT: Fever and weakness. HISTORY OF PRESENT ILLNESS: The patient yesterday had a urological procedure, busting up stones. She did have a ureteral stent placed. They were to watch for fever or other developments since then. Family members state that she seemed to have some low-grade fever last night but today had more of a fever. She has been more weak and fatigued. She feels minimally short of breath. She is not having significant urinary symptoms. She has not had any vomiting though does have mild nausea. She has not really eaten or drank today. PAST MEDICAL HISTORY: Past history is significant for previous kidney stones, hypertension, history of CHF and reflux. She has diabetes, arthritis and hypothyroidism. MEDICATIONS: She is on a number of medications, as noted on the medication reconciliation list. ALLERGIES: She is allergic to lisinopril. SOCIAL HISTORY: She lives at home, accompanied here with family. She does not smoke or drink alcohol. REVIEW OF SYSTEMS: She does have chronic leg swelling. She is not complaining of chest pain. No headaches. She did feel a little lightheaded today but no dizziness. No syncope. No diarrhea or stool problems. No bleeding disorders. PHYSICAL EXAMINATION: This is an 82-year-old, mildly obese female who is alert and appropriate. She does not appear toxic. Skin is very warm and dry without rashes. HEENT examination reveals very dry oral mucosa. Otherwise, eyes, ears, nose, mouth and throat are normal. Her neck is supple without adenopathy. She has very diminished breath sounds bilaterally, particularly at the bases. There are no mathew crackles or wheezes. She is minimally tachypneic. Cardiac examination is a regular rate without ectopy or murmurs, slightly tachycardic. Abdomen is obese but soft and nontender. She moves extremities appropriately. She has fairly marked chronic swelling to her lower extremities with some espinoza induration. It is mildly reddened. There is some slight weeping and slight redness, although this appears to me to be more of a chronic issue than an acute cellulitis. She does have generally good peripheral pulses. She does not have any acute neurologic abnormalities. Vital signs: Temperature is 102, pulse 107, respirations 24, and blood pressure 177/73. Page 1 of 2 ARLETTE GUALLPA Emergency Room Report DIAGNOSTIC DATA: Laboratories returned showing a CBC with a white count of 11,800, significant left shift of 91% neutrophils, and H&H of 9.9 and 30.5. Lactate was elevated at 19.6. CMP showed a BUN and creatinine of 25 and 1.6. Glucose was 191. Urinalysis did show greater than 50 WBCs and 2+ bacteria. Chest x-ray was read as suspicious for infiltrates of the lower lung gaitan. EMERGENCY DEPARTMENT COURSE AND TREATMENT: The patient had an IV of normal saline. She was given a liter of saline in the ER. She was given 2 g of Rocephin IV. Blood and urine cultures were obtained. I discussed the case with Dr. Fletcher, who will admit for further management. DIAGNOSES: 1. Pneumonia. 2. Urinary tract infection with sepsis. Dictated By: Thuan Choi MD 07/17/17 15:00 JOB #: [id number] Transcribed By: emily 07/18/17 13:23 Electronically signed by: ZENY Choi M.D. 07/21/17 07:33 Page 2 of 2 ARLETTE GUALLPA Emergency Room Report CBC Collected: 07/21/2017 Status: F [facility]: [facility] 5:35 AM [facility] REPOSITORY TYPE CODE TESTS RESULT OUT OF RANGE REFERENCE UNITS LAB CBC(LOINC) CBC Result Comment: CBC-COMPLETE BLOOD COUNT LAB WBC(LOINC) 4.5 - 10.8 x 10EE3/UL WBC 7.3 LAB RBC(LOINC) 4.10 - x 10EE6/UL 5.30 RBC Low 3.32 LAB HEMOGLOBIN(LOINC 12.0 - g/dl ) 16.0 Low HEMOGLOBIN 9.5 LAB HEMATOCRIT(LOINC 34.0 - % ) 46.0 Low HEMATOCRIT 28.7 LAB MCV(LOINC) 80 - 99 fl MCV 87 LAB MCH(LOINC) 27 - 33 pg MCH 29 LAB MCHC(LOINC) 32 - 36 X10 3 MCHC 33 LAB RDW/CV(LOINC) 12.0 - % 15.6 RDW/CV High 16.7 LAB PLATELET(LOINC) 150 - 450 x10EE3/UL PLATELET 254 LAB MPV(LOINC) 6.6 - 10.5 fl MPV 7.7 Result Comment: AUTOMATED DIFFERENTIAL LAB NEUT %(LOINC) 46.0 - 76.0 % NEUT % 61.7 LAB LYMPH %(LOINC) 20.0 - 45.0 % Low LYMPH % 18.5 LAB MONOS %(LOINC) 0.0 - 10.0 % MONOS % High 13.2 LAB EO %(LOINC) 0.0 - 7.0 % EO % 5.7 LAB BASO %(LOINC) 0.0 - 2.0 % BASO % 0.9 LAB Lymph #(LOINC) 0.80 - 2.80 x10EE3/U L Lymph # 1.40 LAB Neut #(LOINC) 1.50 - 7.10 x10EE3/U L Neut # 4.50 LAB Cowley #(LOINC) 0.20 - 1.00 x10EE3/U L Cowley # 1.00 LAB EO #(LOINC) 0.00 - 0.50 x10EE3/U L EO # 0.40 LAB Baso #(LOINC) 0.00 - 0.10 x10EE3/U L Baso # 0.10 LAB MANUAL DIFF(LOINC) MANUAL DIFF N/A LAB MORPHOLOGY(LOINC ) MORPHOLOGY N/A Result Comment: {CD] Performed By: #### [id number] #### [facility],[address] [place], [place] [id number] BMP WITH EGFR Collected: 07/21/2017 Status: F [facility]: [facility] 5:35 AM [facility] REPOSITORY TYPE CODE TESTS RESULT OUT OF RANGE REFERENCE UNITS LAB BMP with eGFR(LOINC) BMP with eGFR Result Comment: BASIC METABOLIC PANEL LAB SODIUM(LOINC) 136 - 145 mmol/l SODIUM Low 135 LAB POTASSIUM(LOINC) 3.5 - 5.1 mmol/L POTASSIUM 3.9 LAB CHLORIDE(LOINC) 98 - 107 mmol/L CHLORIDE 98 LAB CO2(LOINC) 21.0 - mmol/L 31.0 CO2 28.5 LAB GLUCOSE(LOINC) 74 - 106 mg/dl GLUCOSE High 111 LAB BUN(LOINC) 6 - 20 mg/dl BUN High 32 LAB CREATININE(LOINC) 0.6 - 1.2 mg/dl High CREATININE 1.4 LAB CALCIUM(LOINC) 8.6 - mg/dl 10.2 CALCIUM 8.9 LAB ANION GAP(LOINC) 10 - 20 mmol/L ANION GAP 12 LAB AGE(LOINC) years AGE 82 LAB eGFR(LOINC) 60 - 999 ML/MINUTE eGFR Low 36 LAB eGFR(AA)(LOINC) 60 - 999 ML/MINUTE eGFR(AA) Low 44 Result Comment: ACCORDING TO THE NATIONAL KIDNEY DISEASE EDUCATION PROGRAM(NKDE), A NORMAL eGFR IS A VALUE GREATER THAN OR EQUAL TO 60 ML/MIN/1.73 SQ METERS. CHRONIC KIDNEY DISEASE: <60mL/MIN/1.73 SQ METERS KIDNEY FAILURE: <15mL/MIN/1.73 SQ METERS THIS TEST SHOULD ONLY BE USED FOR PATIENTS 18 YEARS OF AGE AND OLDER. Performed By: #### [id number] #### [facility],[address] [place] [id number] MAGNESIUM Collected: 07/21/2017 Status: F [facility]: [facility] 5:35 [facility] REPOSITORY TYPE CODE TESTS RESULT OUT OF REFERENCE UNITS RANGE LAB MAGNESIUM( 1.6 - 2.6 mg/dl LOINC) MAGNESIUM 1.7 Performed By: #### [id number] #### [facility],[address] [place] [id number] CBC Collected: 07/20/2017 Status: F Source: [facility] 9:38 [facility] REPOSITORY TYPE CODE TESTS RESULT OUT OF RANGE REFERENCE UNITS LAB CBC(LOINC) CBC Result Comment: CBC-COMPLETE BLOOD COUNT LAB WBC(LOINC) 4.5 - 10.8 x 10EE3/UL WBC 7.7 LAB RBC(LOINC) 4.10 - x 10EE6/UL 5.30 RBC Low 3.34 LAB HEMOGLOBIN(LOINC 12.0 - g/dl ) 16.0 Low HEMOGLOBIN 9.4 LAB HEMATOCRIT(LOINC 34.0 - % ) 46.0 Low HEMATOCRIT 28.9 LAB MCV(LOINC) 80 - 99 fl MCV 87 LAB MCH(LOINC) 27 - 33 pg MCH 28 LAB MCHC(LOINC) 32 - 36 X10 3 MCHC 33 LAB RDW/CV(LOINC) 12.0 - % 15.6 RDW/CV High 16.9 LAB PLATELET(LOINC) 150 - 450 x10EE3/UL PLATELET 226 LAB MPV(LOINC) 6.6 - 10.5 fl MPV 7.7 Result Comment: AUTOMATED DIFFERENTIAL LAB NEUT %(LOINC) 46.0 - % 76.0 NEUT % 72.5 LAB LYMPH %(LOINC) 20.0 - % Low 45.0 LYMPH % 12.9 LAB MONOS %(LOINC) 0.0 - 10.0 % MONOS % 10.7 High LAB EO %(LOINC) 0.0 - 7.0 % EO % 3.4 LAB BASO %(LOINC) 0.0 - 2.0 % BASO % 0.5 LAB Lymph #(LOINC) 0.80 - x10EE3/ 2.80 UL Lymph # 1.00 LAB Neut #(LOINC) 1.50 - x10EE3/ 7.10 UL Neut # 5.60 LAB Cowley #(LOINC) 0.20 - x10EE3/ 1.00 UL Cowley # 0.80 LAB EO #(LOINC) 0.00 - x10EE3/ 0.50 UL EO # 0.30 LAB Baso #(LOINC) 0.00 - x10EE3/ 0.10 UL Baso # 0.00 LAB MANUAL DIFF(LOINC) MANUAL DIFF SEE BELOW LAB BANDS(LOINC) 0 - 5 % BANDS 3 LAB SEGS(LOINC) 50 - 70 % SEGS 65 LAB LYMPH(LOINC) 20 - 40 % Low LYMPH 14 LAB MONOS(LOINC) 0 - 8 % MONOS 13 High LAB EO(LOINC) 0.0 - 4.0 % EO 5.0 High LAB MORPHOLOGY(LOIN C) MORPHOLOGY REVIEWED Result Comment: {CD] Performed By: #### [id number] #### [address] [id number] IRON Collected: 07/20/2017 Status: F Source: [facility] 9:38 [facility] REPOSITORY TYPE CODE TESTS RESULT OUT OF RANGE REFERENCE UNITS LAB IRON(LOINC) 50 - 170 ug/dl Low IRON 15 Performed By: #### [id number] #### [place] [id number] VITAMIN B-12 Collected: 07/20/2017 Status: F Source: [facility] 9:38 [facility] REPOSITORY TYPE CODE TESTS RESULT OUT OF REFERENCE UNITS RANGE LAB N(LOINC) 180 - 914 pg/mL VITAMIN B12 695 Performed By: #### [id number] #### [place] [id number] FOLATES Collected: 07/20/2017 Status: F Source: [facility] 9:38 [facility] REPOSITORY TYPE CODE TESTS RESULT OUT OF REFERENCE UNITS RANGE LAB FOLATES(SCOTTY 3.5 - 20.0 ng/ml NC) High FOLATES >24.0 Performed By: #### [id number] #### [place] [id number] BMP WITH EGFR Collected: 07/20/2017 Status: F Source: [facility] 9:38 [facility] REPOSITORY TYPE CODE TESTS RESULT OUT OF RANGE REFERENCE UNITS LAB BMP with eGFR(LOINC) BMP with eGFR Result Comment: BASIC METABOLIC PANEL LAB SODIUM(LOINC) 136 - 145 mmol/l SODIUM Low 132 LAB POTASSIUM(LOINC) 3.5 - 5.1 mmol/L POTASSIUM 3.9 LAB CHLORIDE(LOINC) 98 - 107 mmol/L CHLORIDE 98 LAB CO2(LOINC) 21.0 - mmol/L 31.0 CO2 27.2 LAB GLUCOSE(LOINC) 74 - 106 mg/dl GLUCOSE High 187 LAB BUN(LOINC) 6 - 20 mg/dl BUN High 31 LAB CREATININE(LOINC) 0.6 - 1.2 mg/dl High CREATININE 1.5 LAB CALCIUM(LOINC) 8.6 - mg/dl 10.2 CALCIUM 8.7 LAB ANION GAP(LOINC) 10 - 20 mmol/L ANION GAP 11 LAB AGE(LOINC) years AGE 82 LAB eGFR(LOINC) 60 - 999 ML/MINUTE eGFR Low 33 LAB eGFR(AA)(LOINC) 60 - 999 ML/MINUTE eGFR(AA) Low 40 Result Comment: ACCORDING TO THE NATIONAL KIDNEY DISEASE EDUCATION PROGRAM(NKDE), A NORMAL eGFR IS A VALUE GREATER THAN OR EQUAL TO 60 ML/MIN/1.73 SQ METERS. CHRONIC KIDNEY DISEASE: <60mL/MIN/1.73 SQ METERS KIDNEY FAILURE: <15mL/MIN/1.73 SQ METERS THIS TEST SHOULD ONLY BE USED FOR PATIENTS 18 YEARS OF AGE AND OLDER. Performed By: #### [id number] #### [facility],[address] [place] [address] CBC Collected: 07/19/2017 Status: F Source: [facility] 5:15 AM [facility] REPOSITORY TYPE CODE TESTS RESULT OUT OF RANGE REFERENCE UNITS LAB CBC(LOINC) CBC Result Comment: CBC-COMPLETE BLOOD COUNT LAB WBC(LOINC) 4.5 - 10.8 x 10EE3/UL WBC 10.0 LAB RBC(LOINC) 4.10 - x 10EE6/UL 5.30 RBC Low 3.21 LAB HEMOGLOBIN(LOINC 12.0 - g/dl ) 16.0 Low HEMOGLOBIN 9.1 LAB HEMATOCRIT(LOINC 34.0 - % ) 46.0 Low HEMATOCRIT 28.1 LAB MCV(LOINC) 80 - 99 fl MCV 88 LAB MCH(LOINC) 27 - 33 pg MCH 28 LAB MCHC(LOINC) 32 - 36 X10 3 MCHC 32 LAB RDW/CV(LOINC) 12.0 - % 15.6 RDW/CV High 16.8 LAB PLATELET(LOINC) 150 - 450 x10EE3/UL PLATELET 256 LAB MPV(LOINC) 6.6 - 10.5 fl MPV 7.5 Result Comment: AUTOMATED DIFFERENTIAL LAB NEUT %(LOINC) 46.0 - 76.0 % NEUT % High 83.5 LAB LYMPH %(LOINC) 20.0 - 45.0 % Low LYMPH % 8.1 LAB MONOS %(LOINC) 0.0 - 10.0 % MONOS % 6.3 LAB EO %(LOINC) 0.0 - 7.0 % EO % 1.4 LAB BASO %(LOINC) 0.0 - 2.0 % BASO % 0.7 LAB Lymph #(LOINC) 0.80 - 2.80 x10EE3/U L Lymph # 0.80 LAB Neut #(LOINC) 1.50 - 7.10 x10EE3/U L Neut # High 8.40 LAB Cowley #(LOINC) 0.20 - 1.00 x10EE3/U L Cowley # 0.60 LAB EO #(LOINC) 0.00 - 0.50 x10EE3/U L EO # 0.10 LAB Baso #(LOINC) 0.00 - 0.10 x10EE3/U L Baso # 0.10 LAB MANUAL DIFF(LOINC) MANUAL DIFF N/A LAB MORPHOLOGY(LOINC ) MORPHOLOGY N/A Result Comment: {CD] Performed By: #### [id number] #### [facility],[address] [place] [address] BMP WITH EGFR Collected: 07/19/2017 Status: F Source: [facility] 5:15 AM [facility] REPOSITORY TYPE CODE TESTS RESULT OUT OF RANGE REFERENCE UNITS LAB BMP with eGFR(LOINC) BMP with eGFR Result Comment: BASIC METABOLIC PANEL LAB SODIUM(LOINC) 136 - 145 mmol/l SODIUM Low 135 LAB POTASSIUM(LOINC) 3.5 - 5.1 mmol/L POTASSIUM 3.9 LAB CHLORIDE(LOINC) 98 - 107 mmol/L CHLORIDE 101 LAB CO2(LOINC) 21.0 - mmol/L 31.0 CO2 29.4 LAB GLUCOSE(LOINC) 74 - 106 mg/dl GLUCOSE 97 LAB BUN(LOINC) 6 - 20 mg/dl BUN High 30 LAB CREATININE(LOINC) 0.6 - 1.2 mg/dl High CREATININE 1.9 LAB CALCIUM(LOINC) 8.6 - mg/dl 10.2 CALCIUM Low 8.5 LAB ANION GAP(LOINC) 10 - 20 mmol/L ANION Low GAP 9 LAB AGE(LOINC) years AGE 82 LAB eGFR(LOINC) 60 - 999 ML/MINUTE eGFR Low 25 LAB eGFR(AA)(LOINC) 60 - 999 ML/MINUTE eGFR(AA) Low 31 Result Comment: ACCORDING TO THE NATIONAL KIDNEY DISEASE EDUCATION PROGRAM(NKDE), A NORMAL eGFR IS A VALUE GREATER THAN OR EQUAL TO 60 ML/MIN/1.73 SQ METERS. CHRONIC KIDNEY DISEASE: <60mL/MIN/1.73 SQ METERS KIDNEY FAILURE: <15mL/MIN/1.73 SQ METERS THIS TEST SHOULD ONLY BE USED FOR PATIENTS 18 YEARS OF AGE AND OLDER. Performed By: #### [id number] #### [place] [id number] LACTATE Collected: 07/18/2017 Status: F Source: [facility] 5:[address] [place] [address] REPOSITORY TYPE CODE TESTS RESULT OUT OF REFERENCE UNITS RANGE LAB LACTATE(SCOTTY 4.5 - 18.0 mg/dL [place]) LACTATE 10.7 Performed By: #### [id number] #### [place] [id number] CBC Collected: 07/18/2017 Status: F Source: [facility] 5:[address] [place] [address] REPOSITORY TYPE CODE TESTS RESULT OUT OF RANGE REFERENCE UNITS LAB CBC(LOINC) CBC Result Comment: CBC-COMPLETE BLOOD COUNT LAB WBC(LOINC) 4.5 - 10.8 x 10EE3/UL WBC 10.2 LAB RBC(LOINC) 4.10 - x 10EE6/UL 5.30 RBC Low 3.14 LAB HEMOGLOBIN(LOINC 12.0 - g/dl ) 16.0 Low HEMOGLOBIN 9.0 LAB HEMATOCRIT(LOINC 34.0 - % ) 46.0 Low HEMATOCRIT 27.3 LAB MCV(LOINC) 80 - 99 fl MCV 87 LAB MCH(LOINC) 27 - 33 pg MCH 29 LAB MCHC(LOINC) 32 - 36 X10 3 MCHC 33 LAB RDW/CV(LOINC) 12.0 - % 15.6 RDW/CV High 17.0 LAB PLATELET(LOINC) 150 - 450 x10EE3/UL PLATELET 281 LAB MPV(LOINC) 6.6 - 10.5 fl MPV 7.1 Result Comment: AUTOMATED DIFFERENTIAL LAB NEUT %(LOINC) 46.0 - 76.0 % NEUT % High 90.5 LAB LYMPH %(LOINC) 20.0 - 45.0 % Low LYMPH % 3.7 LAB MONOS %(LOINC) 0.0 - 10.0 % MONOS % 5.4 LAB EO %(LOINC) 0.0 - 7.0 % EO % 0.2 LAB BASO %(LOINC) 0.0 - 2.0 % BASO % 0.2 LAB Lymph #(LOINC) 0.80 - 2.80 x10EE3/U Low L Lymph # 0.40 LAB Neut #(LOINC) 1.50 - 7.10 x10EE3/U L Neut # High 9.20 LAB Cowley #(LOINC) 0.20 - 1.00 x10EE3/U L Cowley # 0.50 LAB EO #(LOINC) 0.00 - 0.50 x10EE3/U L EO # 0.00 LAB Baso #(LOINC) 0.00 - 0.10 x10EE3/U L Baso # 0.00 LAB MANUAL DIFF(LOINC) MANUAL DIFF SEE BELOW LAB SEGS(LOINC) 50 - 70 % SEGS High 92 LAB LYMPH(LOINC) 20 - 40 % Low LYMPH 3 LAB MONOS(LOINC) 0 - 8 % MONOS 5 LAB NRBC(LOINC) /100 NRBC 1 LAB CELL COUNT(LOINC) CELL COUNT 100 LAB MORPHOLOGY(LOIN C) MORPHOLOGY SEE BELOW LAB ANISO(LOINC) ANISO 1+ Result Comment: {CD] Performed By: #### [id number] #### [facility],[address] [place] [address] BMP WITH EGFR Collected: 07/18/2017 Status: F Source: [facility] 5:18 AM [facility] REPOSITORY TYPE CODE TESTS RESULT OUT OF RANGE REFERENCE UNITS LAB BMP with eGFR(LOINC) BMP with eGFR Result Comment: BASIC METABOLIC PANEL LAB SODIUM(LOINC) 136 - 145 mmol/l SODIUM 138 LAB POTASSIUM(LOINC) 3.5 - 5.1 mmol/L POTASSIUM 3.9 LAB CHLORIDE(LOINC) 98 - 107 mmol/L CHLORIDE 103 LAB CO2(LOINC) 21.0 - mmol/L 31.0 CO2 27.1 LAB GLUCOSE(LOINC) 74 - 106 mg/dl GLUCOSE High 142 LAB BUN(LOINC) 6 - 20 mg/dl BUN High 25 LAB CREATININE(LOINC) 0.6 - 1.2 mg/dl High CREATININE 1.7 LAB CALCIUM(LOINC) 8.6 - mg/dl 10.2 CALCIUM Low 8.4 LAB ANION GAP(LOINC) 10 - 20 mmol/L ANION GAP 12 LAB AGE(LOINC) years AGE 82 LAB eGFR(LOINC) 60 - 999 ML/MINUTE eGFR Low 29 LAB eGFR(AA)(LOINC) 60 - 999 ML/MINUTE eGFR(AA) Low 35 Result Comment: ACCORDING TO THE NATIONAL KIDNEY DISEASE EDUCATION PROGRAM(NKDE), A NORMAL eGFR IS A VALUE GREATER THAN OR EQUAL TO 60 ML/MIN/1.73 SQ METERS. CHRONIC KIDNEY DISEASE: <60mL/MIN/1.73 SQ METERS KIDNEY FAILURE: <15mL/MIN/1.73 SQ METERS THIS TEST SHOULD ONLY BE USED FOR PATIENTS 18 YEARS OF AGE AND OLDER. Performed By: #### [id number] #### [place] [id number] LACTATE Collected: 07/17/2017 Status: F Source: [facility] 3:05 PM [facility] REPOSITORY TYPE CODE TESTS RESULT OUT OF REFERENCE UNITS RANGE LAB LACTATE(SCOTTY 4.5 - 18.0 mg/dL NC) LACTATE 14.9 Performed By: #### [id number] #### [facility],[address] [place] [address] CMP WITH EGFR Collected: 07/17/2017 Status: F Source: [facility] 1:35 PM [facility] REPOSITORY TYPE CODE TESTS RESULT OUT OF RANGE REFERENCE UNITS LAB CMP with eGFR(LOINC) CMP with eGFR Result Comment: COMPREHENSIVE METABOLIC PANEL LAB SODIUM(LOINC) 136 - 145 mmol/l SODIUM 137 LAB POTASSIUM(LOINC) 3.5 - 5.1 mmol/L POTASSIUM 3.9 LAB CHLORIDE(LOINC) 98 - 107 mmol/L CHLORIDE 103 LAB CO2(LOINC) 21.0 - mmol/L 31.0 CO2 25.8 LAB GLUCOSE(LOINC) 74 - 106 mg/dl GLUCOSE High 191 LAB BUN(LOINC) 6 - 20 mg/dl BUN High 25 LAB CREATININE(LOINC) 0.6 - 1.2 mg/dl High CREATININE 1.6 LAB AST/SGOT(LOINC) 13 - 39 U/L AST/SGOT 15 LAB ALK PHOS(LOINC) 38 - 126 U/L ALK PHOS 64 LAB CALCIUM(LOINC) 8.6 - mg/dl 10.2 CALCIUM 8.9 LAB TOTAL 6.4 - 8.3 g/dl PROTEIN(LOINC) TOTAL PROTEIN 7.2 LAB ALBUMIN(LOINC) 3.4 - 4.8 g/dL ALBUMIN Low 3.1 LAB GLOBULIN(LOINC) 1.5 - 3.8 G/DL GLOBULIN High 4.1 LAB A/G RATIO(LOINC) 0.9 - 1.6 A/G Low RATIO 0.8 LAB TOTAL BILI(LOINC) 0.0 - 1.5 mg/dl TOTAL BILI 0.4 LAB B/C RATIO(LOINC) 0 - 30 ratio B/C RATIO 16 LAB ALT/SGPT(LOINC) 8 - 35 U/L ALT/SGPT Low 7 LAB ANION GAP(LOINC) 10 - 20 mmol/L ANION GAP 12 LAB AGE(LOINC) years AGE 82 LAB eGFR(LOINC) 60 - 999 ML/MINUTE eGFR Low 31 LAB eGFR(AA)(LOINC) 60 - 999 ML/MINUTE eGFR(AA) Low 37 Result Comment: ACCORDING TO THE NATIONAL KIDNEY DISEASE EDUCATION PROGRAM(NKDE), A NORMAL eGFR IS A VALUE GREATER THAN OR EQUAL TO 60 ML/MIN/1.73 SQ METERS. CHRONIC KIDNEY DISEASE: <60mL/MIN/1.73 SQ METERS KIDNEY FAILURE: <15mL/MIN/1.73 SQ METERS THIS TEST SHOULD ONLY BE USED FOR PATIENTS 18 YEARS OF AGE AND OLDER. Performed By: #### [id number] #### [facility],[address] [place] [address] URINALYSIS Collected: 07/17/2017 Status: F Source: [facility] 12:50 PM [facility] REPOSITORY TYPE CODE TESTS RESULT OUT OF REFERENCE UNITS RANGE LAB URINALYSIS (LOINC) URINALYSIS Result Comment: URINALYSIS LAB Specimen Type(LOINC) Specimen Type UNSPECIFIED LAB Color(LOINC) NORMAL: YELLOW Color YELLOW LAB Clarity(LOINC) NORMAL: CLEAR Clarity very cloudy LAB ph(LOINC) NORMAL: 5.0-8.0 ph 5 LAB Protein(LOINC) NORMAL: NEGATIVE Protein 100 Abnormal LAB Glucose(LOINC) NORMAL: NORMAL Glucose NORM LAB Ketone(LOINC) NORMAL: NEGATIVE Ketone NEG LAB Bilirubin(LOINC) NORMAL: NEGATIVE NEG Bilirubin LAB Blood(LOINC) NORMAL: NEGATIVE Blood 250 Abnormal LAB Urobilinog(LOINC NORMAL: ) NORMAL NORM Urobilinog LAB Sp NORMAL: Lennon(LOINC) 1.010-1.030 Sp 1.010 Lennon LAB Nitrite(LOINC) NORMAL: NEGATIVE Nitrite NEG LAB Leukocytes(LOINC NORMAL: ) NEGATIVE 500 Abnormal Leukocytes LAB Microscopic(LOIN C) SEE Microscopic BELOW Result Comment: MICROSCOPIC LAB Wbc(LOINC) 0-5/hpf Wbc >50 LAB Rbc(LOINC) 0-3/hpf Rbc 5-10 LAB Casts(LOINC) Casts NONE LAB Crystals(LOINC) Crystals NONE LAB Amorphous(LOINC) Amorphous NONE LAB Bacteria(LOINC) Bacteria 2+ LAB Epi Cells(INC) Epi Cells OCC LAB Mucous(LOINC) Mucous NONE LAB Yeast(LOINC) Yeast NONE Performed By: #### [id number] #### [facility],[address] [place] [address] CHEST 1 VIEW Observed: 07/17/2017 Status: F Source: [facility] 12:13 PM [place] [address] Patient: ARLETTE GUALLPA Phone#: : [phone] Age: 82 Gender: F Pt. Type: ER Account: [id number] Location: [facility] Ordering: THUAN CHOI Exam Date: 07/17/2017/11:40 Family Phys: DANYN CHOI Charge Code: 290979 Physician: Harmon Order #: [id number] DLP Dose#: PROCEDURE: X-RAY CHEST 1 VIEW COMPARISON: [facility], XR, CHEST 2 VIEWS, 06/10/2017, 14:29. INDICATIONS: Shortness of breath FINDINGS: Poor inspiratory effort. LUNGS: Patchy densities in the lung bases, left greater than right. VASCULATURE: Normal. Unremarkable pulmonary vasculature. CARDIAC: Normal. No cardiac silhouette abnormality or cardiomegaly. MEDIASTINUM: Aortic arch calcifications. PLEURA: Normal. No effusion or pleural thickening. BONES: Degenerative changes of the spine. OTHER: Negative. CONCLUSION: 1. Patchy densities in the lung bases, concerning for infiltrates. Dictated by: Annalee Barcenas MD on 07/17/2017 at 12:22 Approved by: Annalee Barcenas MD on 07/17/2017 at 12:22 CBC Collected: 07/17/2017 Status: F Source: [facility] 11:58 AM [facility] REPOSITORY TYPE CODE TESTS RESULT OUT OF RANGE REFERENCE UNITS LAB CBC(LOINC) CBC Result Comment: CBC-COMPLETE BLOOD COUNT LAB WBC(LOINC) 4.5 - 10.8 x 10EE3/UL WBC High 11.8 LAB RBC(LOINC) 4.10 - x 10EE6/UL 5.30 RBC Low 3.52 LAB HEMOGLOBIN(LOINC 12.0 - g/dl ) 16.0 Low HEMOGLOBIN 9.9 LAB HEMATOCRIT(LOINC 34.0 - % ) 46.0 Low HEMATOCRIT 30.5 LAB MCV(LOINC) 80 - 99 fl MCV 87 LAB MCH(LOINC) 27 - 33 pg MCH 28 LAB MCHC(LOINC) 32 - 36 X10 3 MCHC 33 LAB RDW/CV(LOINC) 12.0 - % 15.6 RDW/CV High 16.7 LAB PLATELET(LOINC) 150 - 450 x10EE3/UL PLATELET 366 LAB MPV(LOINC) 6.6 - 10.5 fl MPV 7.7 Result Comment: AUTOMATED DIFFERENTIAL LAB NEUT %(LOINC) 46.0 - 76.0 % NEUT % High 91.1 LAB LYMPH %(LOINC) 20.0 - 45.0 % Low LYMPH % 2.7 LAB MONOS %(LOINC) 0.0 - 10.0 % MONOS % 5.4 LAB EO %(LOINC) 0.0 - 7.0 % EO % 0.1 LAB BASO %(LOINC) 0.0 - 2.0 % BASO % 0.7 LAB Lymph #(LOINC) 0.80 - 2.80 x10EE3/U Low L Lymph # 0.30 LAB Neut #(LOINC) 1.50 - 7.10 x10EE3/U L Neut # High 10.70 LAB Cowley #(LOINC) 0.20 - 1.00 x10EE3/U L Cowley # 0.60 LAB EO #(LOINC) 0.00 - 0.50 x10EE3/U L EO # 0.00 LAB Baso #(LOINC) 0.00 - 0.10 x10EE3/U L Baso # 0.10 LAB MANUAL DIFF(LOINC) MANUAL DIFF N/A [facility] MORPHOLOGY N/A Result Comment: {CD] Performed By: #### [id number] #### [place] [address] Observed: 07/17/2017 Status: F Source: [facility] INFLUENZA VIRUS RAPID 11:58 [facility] A/B REPOSITORY INFLUENZA A NEGATIVE INFLUENZA B NEGATIVE INTERNAL NEG QC PASS INTERNAL POS QC PASS EXTERNAL QC DONE? YES A NEGATIVE TEST RESULT DOES NOT EXCLUDE INFECTION WITH INFLUENZA A OR B. THEREFORE, THE RESULTS OBTAINED FROM THIS FLU TEST SHOULD BE USED IN CONJUCTION WITH CLINICAL FINDINGS TO MAKE AN ACCURATE DIAGNOSIS. INDIVIDUALS WHO HAVE RECEIVED NASALLY ADMINISTERED INFLUENZA A VACCINE MAY TEST POSITIVE IN COMMERCIALLY AVAILABLE INFLUENZA RAPID DIAGNOSTIC TESTS FOR UP TO THREE DAYS. Performed By: #### [id number] #### [place] [address] LACTATE Collected: 07/17/2017 Status: F Source: [facility] 11:58 [facility] REPOSITORY TYPE CODE TESTS RESULT OUT OF REFERENCE UNITS RANGE LAB LACTATE(SCOTTY 4.5 - 18.0 mg/dL [place]) High LACTATE 19.6 Performed By: #### [id number] #### [place] [address] HGB A1C Collected: 07/17/2017 Status: F Source: [facility] 11:58 [facility] REPOSITORY TYPE CODE TESTS RESULT OUT OF RANGE REFERENCE UNITS LAB HGB 4.4 - 6.4 % A1C(LOINC) High HGB A1C 7.3 Result Comment: {HB] {A1] Performed By: #### [id number] #### [place] [address] Observed: 07/17/2017 Status: F Source: [facility] CULTURE URINE 11:58 [facility] REPOSITORY CULTURE URINE _URINE CULTURE_ M I C R O B I O L O G Y R E P O R T FINAL Antimicrobial Susceptibility and Organism Identification Report Specimen Number : [id number] Requested : 07/17/17 Specimen Source : URINE Collected : 07/17/17 11:58 [place] : Emergency Room Received : 07/17/17 11:58 Requesting Physician : KRISHNA HERZOG Patient/Specimen Tests and Comments Specimen Comments FINAL REPORT: NO GROWTH AT 48 HOURS Tech : Source : URINE ID # : [id number] FINAL Report Date : / / : Collected : 07/17/17 11:58 07/19/17.1410.BKO. 07/18/17.1001.JLN. 07/19/17.1410.BKO.COMPLETE Performed By: #### [id number] #### [facility],[address] [place] [address] Observed: 07/17/2017 Status: F Source: [facility] CULTURE BLOOD 11:58 [facility] REPOSITORY CULTURE BLOOD _BLOOD CULTURE_ SET: 2 24HOUR REPORT NO GROWTH 48HOUR REPORT NO GROWTH 72HOUR REPORT NO GROWTH M I C R O B I O L O G Y R E P O R T FINAL Antimicrobial Susceptibility and Organism Identification Report Specimen Number : [id number] Requested : 07/17/17 Specimen Source : BLOOD Collected : 07/17/17 11:58 [place] : MED SURG [place] Received : 07/17/17 11:58 Requesting Physician : KRISHNA HERZOG Patient/Specimen Tests and Comments Specimen Comments FINAL REPORT: No Growth at 5 Days Tech : Source : BLOOD ID # : [id number] FINAL Report Date : / / : Collected : 07/17/17 11:58 07/23/17.905.BKO. 07/23/17.BKO.COMPLETE Performed By: #### [id number] #### [facility],[address] [place] [address] Observed: 07/17/2017 Status: F Source: [facility] CULTURE BLOOD 11:58 [facility] REPOSITORY CULTURE BLOOD _BLOOD CULTURE_ SET: 2 of 2 24HOUR REPORT NO GROWTH 48HOUR REPORT NO GROWTH 72HOUR REPORT NO GROWTH M I C R O B I O L O G Y R E P O R T FINAL Antimicrobial Susceptibility and Organism Identification Report Specimen Number : [id number] Requested : 07/17/17 Specimen Source : BLOOD Collected : 07/17/17 11:58 [place] : Emergency Room Received : 07/17/17 11:58 Requesting Physician : KRISHNA HERZOG Patient/Specimen Tests and Comments Specimen Comments FINAL REPORT: No Growth at 5 Days Tech : Source : BLOOD ID # : [id number] FINAL Report Date : / / : Collected : 07/17/17 11:58 07/23/17.BKO. 07/23/17.BKO.COMPLETE Performed By: #### [id number] #### [facility],[address] [place] [address] BEDSIDE GLUCOSE Collected: 07/16/2017 Status: F Source: [facility] 5:35 PM [facility] REPOSITORY TYPE CODE TESTS RESULT OUT OF REFERENCE UNITS RANGE LAB L501.080 70-110 mg/dL High BEDSIDE GLU 119 Result Comment: MANAGEMENT OF PATIENT CARE PER NURSING PROTOCOL Performed By: #### L501.080 #### [facility] Point of Care [address] [place] [address] OPERATIVE REPORT Observed: 07/16/2017 Status: F Source: [facility] 4:45 PM [facility] REPOSITORY [facility] Medical Records Department [address] [place] [address] Operative Report 07/16/17 1641 MR#: [id number] Acct: [id number] Name: ARLETTE GUALLPA Rep #: [id number] : 1935 82 From: Ky Brush MD PCP: Danny Choi MD Status: [facility] Y Location: [place] [address] Report of Operation Date of Procedure: 07/16/17 Pre-Operative Diagnosis: Left large ureteral calculi causing obstruction of the left UPJ Post-Operative Diagnosis: Same Surgery/Procedure Performed:: cystoscopy left retrograde pyelogram left ureteroscopy laser of stone, and left stent placement with string Description of Surgical Findings:: 82-year-old female presents to the hospital she initially had an infected stone and a stent was placed she now presents for treatment of the stone so we will perform ureteroscopy and laser of the stone. 82-year-old female was taken back to the operating room at the smooth induction of anesthesia she underwent a MAC local anesthesia with lidocaine jelly in her bladder and local and monitored sedation. Went into the bladder with a cystoscope grabbed the existing stent pulled out the meatus advanced a wire through the stent to left the wire in place over the wire went in with a ureteroscope was able to go all the way up to the kidney pulled out the wire and then inspected and found a large 1 cm stone at the left UPJ junction. I then performed laser lithotripsy and the stone with a 300 m laser fiber the stone was laser little tiny pieces's settings were 0.4 J and 20 Hz for most of the lasering and the stone was laser little tiny pieces that should all pass on her own possible this could be uric acid stone was not visible on KUB. After the stone was lasered completely retrograde pyelogram was performed and then I worked my way down the ureter some fragments were passed and on the ureter but no major fragments within the ureter but a wire up the ureteroscope over the ureter wire I placed a stent left a stent on a string for extraction. Drain the bladder position the stent between the bladder and the kidney properly and then left the string on the stent coming out the meatus for extraction should be given an appointment in about 2 weeks to remove the stent and given prescriptions for home. Type of Anesthesia:: General Drains: stent left side. - Admit VTE Documentation VTE Present on Admission: No VTE Mechan Device Prophylaxis: SCD's VTE Pharm Prophylaxis ordered?: No Reason prophylaxis not ordered:: Treatment Not Indicated 07/16/17 1645 <Electronically signed by Ky Brush MD> Date Ky Brush MD CC: Ky Brush MD; Danny Choi MD Signed DISCHARGE INSTRUCTION Observed: 07/16/2017 Status: F Source: [facility] 4:41 PM [facility] REPOSITORY [facility] Medical Records Department [address] [place] [address] Instructions for Home/Discharge Instructions 07/16/17 1640 MR#: [id number] Acct: [id number] Name: ARLETTE GUALLPA Rep #: [id number] : 1935 82 From: Ky Brush MD PCP: Danny Choi MD Status: [facility] Discharge Diet: Light diet - advance as tolerated Discharge Activity: May not drive while taking narcotic pain medications. Call your doctor if your incision/area has: Continuous Slow Oozing, Sudden Increased Bleeding, Increased Pain/ Swelling, Increased Redness, Foul Smelling Discharge, Swelling at the incision site Call your doctor if you observe: Fever of 101 or Higher Suture Line Care: Avoid Pulling/Pushing, Avoid Pinching/Bending Instructions: Treating Kidney Stones: Ureteroscopic Stone Removal Allergies/Adverse Reactions: Allergies lisinopril Adverse Reaction (Verified 07/14/17 13:17) Other COUGH Medications to take at Discharge Aspirin [Aspirin, Baby] 81 mg PO DAILY@0800 06/20/17 Atorvastatin Calcium [Lipitor] 10 mg PO QHS 06/20/17 Ferrous Sulfate 325 mg PO BID 06/20/17 Furosemide [Lasix] 40 mg PO DAILY 06/20/17 Levothyroxine [Synthroid] 137 mcg PO DAILY 06/20/17 Multivit-Min/FA/Lycopen/Lutein [Centrum Silver Tablet] 1 each PO DAILY 06/20/17 Omeprazole [Prilosec] 20 mg PO DAILY 06/20/17 Amlodipine [Norvasc] 10 mg PO DAILY #30 tab 06/27/17 Glipizide [Glipizide ER] 2.5 mg PO DAILY #30 tab.er.24 06/27/17 Metoprolol Tartrate [Lopressor (beta norm)] 50 mg PO BID #60 tab 06/27/17 Nystatin Powder [Mycostatin Powder] 1 applic TOPICAL TID #1 bottle 07/04/17 Allopurinol 100 mg PO DAILY #30 tab 07/16/17 Ciprofloxacin [Cipro] 500 mg PO BID #14 tab 07/16/17 Hydrocodone/Acetaminophen [Pelham 5-325 Tablet] 1 ea PO Q4H PRN PRN 7 Days #14 tab 07/16/17 Potassium Citrate [Urocit-K] 10 meq PO TID #90 tablet.er 07/16/17 The following prescriptions were given: Hydrocodone/Acetaminophen [Pelham 5-325 Tablet] 1 ea PO Q4H PRN PRN 7 Days #14 tab PRN Reason: Pain Allopurinol 100 mg PO DAILY #30 tab Ciprofloxacin [Cipro] 500 mg PO BID #14 tab Potassium Citrate [Urocit-K] 10 meq PO TID #90 tablet.er Primary Care Physician: Danny Choi MD [Primary Care Provider] - Please Follow Up With: Ky Brush MD - to remove stent. When: July 31 at 10:30 am. 07/16/17 1641 <Electronically signed by Ky Brush MD> Date Ky Brush MD CC: Danny Choi MD BEDSIDE GLUCOSE Collected: 07/16/2017 Status: F Source: BLANK 2:25 PM [facility] REPOSITORY TYPE CODE TESTS RESULT OUT OF REFERENCE UNITS RANGE LAB L501.080 70-110 mg/dL High BEDSIDE GLU 135 Result Comment: MANAGEMENT OF PATIENT CARE PER NURSING PROTOCOL Performed By: #### L501.080 #### [facility] Point [place] [address] RENAL FUNCTION PANEL Collected: 07/14/2017 Status: F Source: [facility] 8:45 AM [facility] REPOSITORY TYPE CODE TESTS RESULT OUT OF REFERENCE UNITS RANGE LAB RENAL FUNCTION PANEL(LOINC) RENAL FUNCTION PANEL Result Comment: RENAL FUNCTION PANEL LAB SODIUM(LOINC) 136 - 145 mmol/l SODIUM 139 LAB POTASSIUM(LOINC) 3.5 - 5.1 mmol/L POTASSIUM 3.6 LAB CHLORIDE(LOINC) 98 - 107 mmol/L CHLORIDE 100 LAB GLUCOSE(LOINC) 74 - 106 mg/dl GLUCOSE High 156 LAB BUN(LOINC) 6 - 20 mg/dl BUN High 30 LAB CREATININE(LOINC) 0.6 - 1.2 mg/dl High CREATININE 1.8 LAB CALCIUM(LOINC) 8.6 - mg/dl 10.2 CALCIUM Low 8.5 LAB ALBUMIN(LOINC) 3.4 - 4.8 g/dL ALBUMIN Low 3.1 LAB B/C RATIO(LOINC) 0 - 30 ratio B/C RATIO 17 LAB CO2(LOINC) 21.0 - mmol/L 31.0 CO2 27.6 LAB PHOSPHORUS(LOINC) 2.7 - 4.5 mg/dl PHOSPHORUS 3.4 Performed By: #### [id number] #### [facility],[address] [facility] [address] RENAL FUNCTION PANEL Collected: 07/08/2017 Status: F Source: [facility] 11:54 AM [facility] REPOSITORY TYPE CODE TESTS RESULT OUT OF REFERENCE UNITS RANGE LAB RENAL FUNCTION PANEL(LOINC) RENAL FUNCTION PANEL Result Comment: RENAL FUNCTION PANEL LAB SODIUM(LOINC) 136 - 145 mmol/l SODIUM 137 LAB POTASSIUM(LOINC) 3.5 - 5.1 mmol/L POTASSIUM 4.3 LAB CHLORIDE(LOINC) 98 - 107 mmol/L CHLORIDE 101 LAB GLUCOSE(LOINC) 74 - 106 mg/dl GLUCOSE High 167 LAB BUN(LOINC) 6 - 20 mg/dl BUN High 32 LAB CREATININE(LOINC) 0.6 - 1.2 mg/dl High CREATININE 2.2 LAB CALCIUM(LOINC) 8.6 - mg/dl 10.2 CALCIUM Low 8.4 LAB ALBUMIN(LOINC) 3.4 - 4.8 g/dL ALBUMIN Low 3.0 LAB B/C RATIO(LOINC) 0 - 30 ratio B/C RATIO 15 LAB CO2(LOINC) 21.0 - mmol/L 31.0 CO2 26.6 LAB PHOSPHORUS(LOINC) 2.7 - 4.5 mg/dl PHOSPHORUS 3.9 Performed By: #### [id number] #### [facility],[address] [place], [place] [id number] EMERGENCY DEPARTMENT Observed: 07/04/2017 Status: F Source: [facility] SUMMARY 5:39 PM [facility] REPOSITORY [facility] Medical Records Department [address] [place], [place] [id number] Emergency Department Summary 07/04/17 0807 MR#: [id number] Acct: [id number] Name: ARLETTE GUALLPA Rep #: [id number] : 1935 82 From: Carlitos Ray MD PCP: Danny Choi MD Status: DEP ER - ER Visit Summary Date of Service: 07/04/17 Chief Complaint: Garcia catheter not draining History of Present Illness: The patient is a [address] Brush, Dr. Blanco, and Dr. Choi. Patient reports that she was in the emergency department yesterday morning and had her Garcia catheter flushed. States that drained all day and then stopped again last night. She complains of a suprapubic pressure that is 8 out of 10 at worst. It is 4 out of 10 currently. She denies any nausea, vomiting, diarrhea, melena, or hematochezia. Her last bowel movements today. She has had no fever or chills. She reports she has left flank pain that is 4-10 severity and is much improved from prior. Physical Examination: Vitals: Stable. Afebrile. General: Well-nourished and well-developed. Head: Normocephalic atraumatic. Neck: Supple, no lymphadenopathy. No JVD. Nontender. Cardiovascular: Regular rate and rhythm. No murmurs. Respiratory: No respiratory distress. Clear to auscultation bilaterally. Abdominal: Soft, mild suprapubic tenderness to palpation with a distended bladder, nondistended, normal bowel sounds. No guarding, rebound, or peritoneal signs. Back: Nontender. Extremities: Nontender, 3+ pitting edema of her lower extremities bilaterally. Skin: Normal color, no rash. Neurologic: Alert and oriented 3. Cranial nerves II through XII are intact. Normal strength and sensation. Psych: Normal affect. Test Results: Patient had a BMP drawn on July 02 that showed that her creatinine had improved to 2.96. This was not repeated. Emergency Department Course and Treatment: Patient initially had her Garcia catheter irrigated and 2 small clots returned. She then had 600 cc of urine that returned and her pain resolved. The urine was not bloody or blood-tinged. There were no further clots. However, I discussed the patient the possibility of placing a larger catheter so that this does not happen again overnight. She was amenable to this and the catheter was replaced. The previous catheter did have a small clot in the tip of this which I feel was narrowing it even more. Treatment Plan: The patient will be discharged instructions to follow-up with Dr. Brush in 4 days as previously scheduled. Return to the emergency department for any worsening symptoms. Disposition: To home in improved and stable condition. Impression: 1. Garcia catheter malfunction. 2. Renal insufficiency. This note was generated with [employer] dictation software. It may contain incorrect words, spelling, and punctuation that were not noted in review of the chart prior to signing ED Disposition - Plan for ED Patient: Chief Complaint: Garcia C/O Instructions: ED Catheter Care Garcia Prescriptions: Nystatin Powder [Mycostatin Powder] 1 applic TOPICAL TID #1 bottle Referrals: Ky Brush MD [STAFF PHYSICIAN] - Keep [place] appointment What to do if you have Problems For any increased pain, shortness of breath, bleeding, nausea or vomiting, chest pain, or any unexpected problems, contact your Primary Care Provider. Call [facility] ([phone]) or report to the closest Emergency Room. Call 911 if necessary. 07/04/17 3164 <Electronically signed by Carlitos Ray MD> Date Carlitos Ray MD Cosigner Signature (If Indicated): Date CC: Danny Choi MD EMERGENCY DEPARTMENT Observed: 07/03/2017 Status: F Source: [place]OS[place] SUMMARY 6:51 AM [facility] REPOSITORY [facility] Medical Records Department [address] [place] [address] Emergency Department Summary 07/03/17 0645 MR#: [id number] Acct: [id number] Name: ARLETTE GUALLPA Rep #: [id number] : 1935 82 From: Reinaldo Go PCP: OUT OF TOWN DOCTOR Status: PRE ER - ER Visit Summary Date of Service: 07/03/17 Chief Complaint: Garcia catheter dysfunction History of Present Illness: The patient is a 82 F no drainage of Garcia catheter since 9 PM last evening. Increasing suprapubic discomfort. No fevers. No vomiting. Garcia catheter placed 2 weeks ago when she was diagnosed with a left-sided kidney stone transferred from [facility]. Status post ureteral stent. Currently on Cipro still. Has a follow-up with urology next week. Physical Examination: General: Alert and oriented 3, no acute distress HEENT: Normocephalic, atraumatic. Moist mucosa membranes Neck: supple, nontender. Cardiovascular: Regular rate and rhythm, no murmurs Respiratory: Normal breath sounds, symmetric, no distress Abdomen: Soft, nontender, nondistended Extremities: Nontender, no edema, pulses intact 4 Neuro: no focal neurological deficits. Test Results: [] Emergency Department Course and Treatment: Patient vitals stable, Garcia was flushed prior to my evaluation. There is 300ml urine output. Suprapubic symptoms improved. Currently on Cipro antibiotics. No fevers. Patient will be discharged with Garcia catheter care instructions. She will keep her follow-up appointment with urology. She will return if any worsening symptoms. Treatment Plan: [] Disposition: Discharge Impression: Garcia catheter dysfunction This note was generated with [employer] software. It may contain incorrect words, spelling, and punctuation that were not noted in review of the chart prior to signing ED Disposition - Plan for ED Patient: Disposition: Home or Assisted Living Chief Complaint: Complaint Diagnosis: Garcia catheter problem Instructions: ED Catheter Care Garcia Referrals: [facility] Doctor,Out of [Primary Care Provider] - Ky Brush MD [STAFF PHYSICIAN] - Keep [place] appointment What to do if you have Problems For any increased pain, shortness of breath, bleeding, nausea or vomiting, chest pain, or any unexpected problems, contact your Primary Care Provider. Call [facility] ([phone]) or report to the closest Emergency Room. Call 911 if necessary. 07/03/17 0651 <Electronically signed by Reinaldo Go> Date Reinaldo Go Cosigner Signature (If Indicated): Date CC: OUT OF [facility] DOCTOR BASIC METABOLIC Collected: 07/02/2017 Status: F Source: BLANK PROFILE (BMP) 8:44 AM [facility] REPOSITORY Order Comment: Send Results To: PCP, Dr. Blanco Reason for Laboratory Test CHF, RUBINA TYPE CODE TESTS RESULT OUT OF RANGE REFERENCE UNITS LAB L501.0100 74-106 mg/dL High GLU 145 Result Comment: Fasting Glucose result greater than or equal to 126 mg/dL suggests DIABETES MELLITUS per A.D.A. criteria. Please note revised GLUCOSE reference range effective 2017. LAB L501.1000 7-18 mg/dL High BUN 60 LAB L501.1100 0.55-1.02 mg/dL High CREAT,SERUM 2.96 Result Comment: The validity of the calculated GFR AND GFRAA in patients over 70 years has not been determined. Clinical correlation is essential. LAB L501.1110 >60 mL/min Low EST GFR 16 Result Comment: Non- GFR Calc LAB L501.1115 >60 mL/min Low EST GFR - AA 20 Result Comment: GFR Calc LAB L501.1300 10-20 RATIO High BUN/CRE 20.3 LAB L501.2200 8.5-10.1 mg/dL CA Normal 8.6 LAB L501.5300 136-145 mmol/L NA Normal 142 LAB L501.5600 3.5-5.1 mmol/L K Normal 4.5 LAB L501.5900 98-107 mmol/L CL Normal 105 LAB L501.6100 21.0-32.0 mmol/L Normal CO2 27.0 LAB L501.6200 5-15 Normal GAP 10 Performed By: #### L500.2500 #### [facility] [address] [place], [address] DISCHARGE SUMMARY Observed: 06/27/2017 Status: F Source: NEOSHO 4:10 PM [facility] REPOSITORY [facility] Medical Records Department [address] [place] [address] Discharge Summary 06/27/17 1403 MR#: [id number] Acct: [id number] Name: ARLETTE GUALLPA Rep #: [id number] : 1935 82 From: Onel ALVAREZ PCP: Status: DIS IN Y Location: [facility] [id number] <Onel Redmond - Last Filed: 06/27/17 14:03> Discharge Date and Diagnosis Date of Admission: 06/20/17 Date of Discharge: 06/27/17 - Primary Discharge Diagnosis Active and Suspected Problems Left nephrolithiasis (Acute) Hydroureter, left (Acute) Hydronephrosis, left (Acute) Acute UTI (Acute) RUBINA Acute diastolic CHF exacerbation New onset PAF HLD Chronic hypoxic respiratory failure DMt2 Hypothyroidism Iron deficiency anemia chronic venous stasis HTN - Secondary Discharge Diagnosis Chronic Problems HTN (hypertension) (Chronic) HLD (hyperlipidemia) (Chronic) Chronic lymphedema (Chronic) Iron deficiency anemia (Chronic) Morbid obesity (Chronic) Chronic venous stasis dermatitis (Chronic) Hospital Course and Treatment Imaging Results: US/Kidney and Bladder IMPRESSION: Bilateral renal cysts. No renal stones. No hydronephrosis. RAD/Chest PA and Lateral IMPRESSION: CHF with cardiac enlargement and edema. RAD/Abdomen Single View IMPRESSION: Left urinary stent. Echo: Interpretation Summary Normal LV size. Left ventricular systolic function is normal. The estimated ejection fraction is 55 %. Transmitral and pulmonary venous doppler flow suggestive of elevated left atrial pressure. Moderate (2+) tricuspid valve insufficiency. Pulmonary artery systolic pressure is 52 mmHg. Moderate pulmonary hypertension. Consultations Jb/Trudi - urology Francis - nephrology 06/20/17 19:42 Consult: Onc/Wound/room service waiter Routine Comment: Operations: - - cystoscopy with stent placement Procedures: 2-D Echocardiogram Summary of Care Provided: Physical exam on day of discharge: General: Resting comfortably NAD Psych: A/Ox3 normal affect HEENT: PEARRLA AT NC Neck: Supple NT CV: RRR no m/t/r/g/h Resp: CTA Abd: [id number] Soft NT no guarding or rigidity Ext: DP2+= BL 2+ pitting edema Skin: W/D normal turgor Lymph/Heme: No active bleeding or adenopathy Neuro: CN2-12 intact Hospital course: The patient is a 82 year old F with a hx of morbid obesity, T2DM, chronic venous stasis, who presented to the er with left CVA tenderness and dysuria. She presented to [place] emergency room was found to have left-sided hydronephrosis and hydroureter with 11 mm stone and was transferred subsequently to [facility]. She started on Rocephin. She was also noted to the ER to have increased heart rate in atrial fibrillation for short period that converted on its own. She was placed on metoprolol. Dr. Muhammad was consulted from urology who placed a left ureteral stent and a Garcia catheter. Urine culture demonstrated Enterobacter aerogenes susceptible to Cipro and she was transitioned to Cipro. She developed significant worsening of her renal function and Dr. Blanco from nephrology was consulted. She had significant crackles in her lungs and bilateral lower extremity edema. After her creatinine stabilized she was placed on Lasix with improvement in her symptoms. Patient was hypoxic and required oxygen to maintain saturations greater than 90% with ambulation. Her oral antidiabetic agents were held and discontinued secondary to poor renal function. We desire to start her on Tradjenta however she had no drug coverage and it would cost her several hundred per month. Instead she was started on low-dose glipizide. We advised her that she will need close monitoring her blood sugars as her medications were significantly she with close follow-up with her PCP. She was written for ciprofloxacin to complete a 14 day course. She will need an outpatient BMP to monitor her renal function especially with her Lasix restarted. Her blood pressure medications were also adjusted while here. Her renal function did improve after starting Lasix while inpatient. She will also need close follow-up with Dr. Espino as she will need a lithotripsy as an outpatient. She will go home with a Garcia catheter in place until then. She will also need to follow-up closely with Dr. Blanco from nephrology. Patient is discharged home with home health care in stable condition. This patient was seen by Onel Redmond PA-C under the supervision of Doctor Weiss. [] Discharge Activity: Return to Normal Activity Home Medications: Medications to take at Discharge Aspirin [Aspirin, Baby] 81 mg PO DAILY@0800 06/20/17 Atorvastatin Calcium [Lipitor] 10 mg PO QHS 06/20/17 Ferrous Sulfate 325 mg PO BID 06/20/17 Furosemide [Lasix] 40 mg PO DAILY 06/20/17 Levothyroxine [Synthroid] 137 mcg PO DAILY 06/20/17 Multivit-Min/FA/Lycopen/Lutein [Centrum Silver Tablet] 1 each PO DAILY 06/20/17 Omeprazole [Prilosec] 20 mg PO DAILY 06/20/17 Potassium Chloride [Klor-Con Sprinkle] 10 meq PO BID 06/20/17 Acetaminophen [Tylenol Tablet] 650 mg PO Q6H PRN PRN tablet 06/27/17 Amlodipine [Norvasc] 10 mg PO DAILY #30 tab 06/27/17 Ciprofloxacin [Cipro] 500 mg PO DAILY #8 tab 06/27/17 Glipizide [Glipizide ER] 2.5 mg PO DAILY #30 tab.er.24 06/27/17 Metoprolol Tartrate [Lopressor (beta norm)] 50 mg PO BID #60 tab 06/27/17 Following Prescrptions Were Given to Patient: Amlodipine [Norvasc] 10 mg PO DAILY #30 tab Ciprofloxacin [Cipro] 500 mg PO DAILY #8 tab Glipizide [Glipizide ER] 2.5 mg PO DAILY #30 tab.er.24 Metoprolol Tartrate [Lopressor (beta norm)] 50 mg PO BID #60 tab Please follow up with your Primary Care Physician in: 2 weeks Please Follow Up With: Carie Blanco DO When: 1-2 weeks Please Follow Up With: Ky Brush MD - call for appointment When: 1 week Medical Necessity - Tobacco Use Smoking Status: Never smoker Tobacco Use: Non-smoker Meaningful Use Info Meaningful Use Diagnoses (Choose all that apply): CHF - CHF TAYLOR/ARB ordered at discharge?: No Reason TAYLOR/ARB not ordered?: Worsening renal disease Documented LVEF (%): 55 <Ingrid Weiss - Last Filed: 06/27/17 16:09> Discharge Date and Diagnosis - Secondary Discharge Diagnosis Chronic Problems HTN (hypertension) (Chronic) HLD (hyperlipidemia) (Chronic) Chronic lymphedema (Chronic) Iron deficiency anemia (Chronic) Morbid obesity (Chronic) Chronic venous stasis dermatitis (Chronic) Hospital Course and Treatment Consultations 06/20/17 19:42 Consult: Onc/Wound/room service waiter Routine Comment: Summary of Care Provided: The patient is a 82 year old F [] Code Visit Inpatient E AND M: [id number] Disch Hosp - a lot of time was spent co-ordinating discharge meds 06/27/17 1414 <Electronically signed by Onel ALVAREZ> Date Onel ALVAREZ 06/27/17 1610<Electronically signed by Ingrid Weiss MD> Cosigner Signature (if applicable): Date Ingrid Weiss MD CC: ANTONIO Redmond; Ingrid Weiss MD Signed BEDSIDE GLUCOSE Collected: 06/27/2017 Status: F Source: BLANK 11:56 AM [facility] REPOSITORY TYPE CODE TESTS RESULT OUT OF REFERENCE UNITS RANGE LAB L501.080 70-110 mg/dL High BEDSIDE GLU 256 Result Comment: MANAGEMENT OF PATIENT CARE PER NURSING PROTOCOL Performed By: #### L501.080 #### [facility] Point of Care [facility] [address] [place], [place] [address] DISCHARGE INSTRUCTION Observed: 06/27/2017 Status: F Source: [place]OS[place] 11:44 AM [facility] REPOSITORY [facility] Medical Records Department [address] [place] [address] Instructions for Home/Discharge Instructions 06/27/17 1142 MR#: [id number] Acct: [id number] Name: ARLETTE GUALLPA Rep #: [id number] : 1935 82 From: Onel ALVAREZ PCP: Status: ADM IN - Discharge Diagnoses Current Active Problems: Current Active and Chronic Problems Left nephrolithiasis (Acute) Hydroureter, left (Acute) Hydronephrosis, left (Acute) Acute UTI (Acute) HTN (hypertension) (Chronic) HLD (hyperlipidemia) (Chronic) Chronic lymphedema (Chronic) Iron deficiency anemia (Chronic) Morbid obesity (Chronic) Chronic venous stasis dermatitis (Chronic) You will use the following diet at home:: Calorie/Carbohydrate Controlled (specify 1200, 1400, etc) - 1800 paige/day, Cardiac - low sodium, 2g / day Your food should be the consistency of: Regular Your liquids should be the consistency of: Regular/Thin Discharge Activity: Return to Normal Activity Additional Instructions: Monitor daily weights Allergies/Adverse Reactions: Allergies lisinopril Adverse Reaction (Verified 06/20/17 19:14) Other COUGH Medications to take at Discharge Aspirin [Aspirin, Baby] 81 mg PO DAILY@0800 06/20/17 Atorvastatin Calcium [Lipitor] 10 mg PO QHS 06/20/17 Ferrous Sulfate 325 mg PO BID 06/20/17 Furosemide [Lasix] 40 mg PO DAILY 06/20/17 Levothyroxine [Synthroid] 137 mcg PO DAILY 06/20/17 Multivit-Min/FA/Lycopen/Lutein [Centrum Silver Tablet] 1 each PO DAILY 06/20/17 Omeprazole [Prilosec] 20 mg PO DAILY 06/20/17 Potassium Chloride [Klor-Con Sprinkle] 10 meq PO BID 06/20/17 Acetaminophen [Tylenol Tablet] 650 mg PO Q6H PRN PRN tablet 06/27/17 Amlodipine [Norvasc] 10 mg PO DAILY #30 tab 06/27/17 Linagliptin [Tradjenta] 5 mg PO DAILY #30 tab 06/27/17 The following prescriptions were given: Amlodipine [Norvasc] 10 mg PO DAILY #30 tab Linagliptin [Tradjenta] 5 mg PO DAILY #30 tab Orders to be completed after discharge: Basic Metabolic Profile (BMP) Time Frame: 5 Days, Location: Laboratory Please follow up with your Primary Care Physician in: 2 weeks Please Follow Up With: Carie Blanco DO When: 1-2 weeks Please Follow Up With: Ky Brush MD - call for appointment When: 1 week Proposed Discharge Date: 06/27/17 06/27/17 1144 <Electronically signed by Onel ALVAREZ> Date Onel ALVAREZ CC: Carie Blanco DO; Jermain Muhammad MD BEDSIDE GLUCOSE Collected: 06/27/2017 Status: F Source: [place]OS[place] 6:41 AM [facility] REPOSITORY TYPE CODE TESTS RESULT OUT OF REFERENCE UNITS RANGE LAB L501.080 70-110 mg/dL High BEDSIDE GLU 172 Result Comment: MANAGEMENT OF PATIENT CARE PER NURSING PROTOCOL Performed By: #### L501.080 #### [facility] Point of Care [address] [place] [address] CBC W/DIFF, AUTOMATED Collected: 06/27/2017 Status: C Source: [place] 5:40 AM [facility] REPOSITORY TYPE CODE TESTS RESULT OUT OF REFERENCE UNITS RANGE LAB L100.1000 4.4-11.0 K/mm3 WBC Normal 10.3 LAB L100.1200 4.2-5.4 M/mm3 Low RBC 3.37 LAB L100.1300 12.0-15.0 g/dl Low HGB 9.6 LAB L100.1400 37-47 % Low HCT 30.2 LAB L100.1500 81-99 fL MCV Normal 89.6 LAB L100.1600 27.0-32.0 pg MCH Normal 28.5 LAB L100.1700 32-36 g/gl Low MCHC 31.8 LAB L100.1810 11.6-14.6 % RDW CV High 16.4 LAB L100.1820 35.1-43.9 fl RDW SD High 53.2 LAB L100.1900 150-450 K/mm3 PLT Normal 248 LAB L100.2000 6.2-12.0 fl MPV Normal 9.9 LAB L100.3100 MANUAL DIFF CELLS COUNTED Normal 100 LAB L100.3200 47-70 % SEGS Normal 67 LAB L100.3800 19-41 % LYMPH Normal 21 LAB L100.3900 0-10 % MONOCYTE Normal 10 LAB L100.4000 0-5 % EOS Normal 1 LAB L100.4100 0-1 % BASOPHIL Normal 1 LAB L100.5500 ADEQ PLT EST Normal ADEQUATE LAB L100.7300 ANISO Normal 1+ LAB L100.7500 POLYCHROMASIA Normal RARE LAB L100.9900 PATH REV Normal Reviewed Result Comment: Normocytic anemia. Clinical correlation necessary. Jimmie Rodrigez M.D. 06/30/17 Pathologist comment added AMENDED REPORT 06/30/17 1432 PATH REV previously reported as: July jamie Performed By: #### L100.0100 #### [facility] [address] [place], [address] BASIC METABOLIC Collected: 06/27/2017 Status: F Source: [place] PROFILE (BMP) 5:40 AM [facility] REPOSITORY TYPE CODE TESTS RESULT OUT OF RANGE REFERENCE UNITS LAB L501.0100 74-106 mg/dL High GLU 175 Result Comment: Fasting Glucose result greater than or equal to 126 mg/dL suggests DIABETES MELLITUS per A.D.A. criteria. Please note revised GLUCOSE reference range effective 2017. LAB L501.1000 7-18 mg/dL High BUN 80 LAB L501.1100 0.55-1.02 mg/dL High CREAT,SERUM 3.57 Result Comment: The validity of the calculated GFR AND GFRAA in patients over 70 years has not been determined. Clinical correlation is essential. LAB L501.1110 >60 mL/min Low EST GFR 13 Result Comment: Non- GFR Calc LAB L501.1115 >60 mL/min Low EST GFR - AA 16 Result Comment: GFR Calc LAB L501.1255 ml/min Normal Estimated CRCL 9.17 LAB L501.1300 10-20 RATIO High BUN/CRE 22.4 LAB L501.2200 8.5-10. mg/dL Low 1 CA 8.3 LAB L501.5300 136-145 mmol/L Normal NA 139 LAB L501.5600 3.5-5.1 mmol/L Normal K 4.2 LAB L501.5900 98-107 mmol/L Normal CL 106 LAB L501.6100 21.0-32 mmol/L Normal .0 CO2 22.0 LAB L501.6200 5-15 Normal GAP 11 Performed By: #### L500.2500 #### [facility] [address] [place], [address] BEDSIDE GLUCOSE Collected: 06/26/2017 Status: F Source: BLANK 8:40 PM [facility] REPOSITORY TYPE CODE TESTS RESULT OUT OF REFERENCE UNITS RANGE LAB L501.080 70-110 mg/dL High BEDSIDE GLU 251 Result Comment: MANAGEMENT OF PATIENT CARE PER NURSING PROTOCOL Performed By: #### L501.080 #### [facility] Point of Care [address] [place] [address] BEDSIDE GLUCOSE Collected: 06/26/2017 Status: F Source: BLANK 4:29 PM [facility] REPOSITORY TYPE CODE TESTS RESULT OUT OF REFERENCE UNITS RANGE LAB L501.080 70-110 mg/dL High BEDSIDE GLU 232 Result Comment: MANAGEMENT OF PATIENT CARE PER NURSING PROTOCOL Performed By: #### L501.080 #### [facility] Point of Care [address] [place] [address] BEDSIDE GLUCOSE Collected: 06/26/2017 Status: F Source: BLANK 11:23 AM [facility] REPOSITORY TYPE CODE TESTS RESULT OUT OF REFERENCE UNITS RANGE LAB L501.080 70-110 mg/dL High BEDSIDE GLU 280 Result Comment: MANAGEMENT OF PATIENT CARE PER NURSING PROTOCOL Performed By: #### L501.080 #### [facility] Point of Care [address] [place] [address] BEDSIDE GLUCOSE Collected: 06/26/2017 Status: F Source: BLANK 6:39 AM [facility] REPOSITORY TYPE CODE TESTS RESULT OUT OF REFERENCE UNITS RANGE LAB L501.080 70-110 mg/dL High BEDSIDE GLU 163 Result Comment: MANAGEMENT OF PATIENT CARE PER NURSING PROTOCOL Performed By: #### L501.080 #### [facility] Point of Care [address] [place] [address] BASIC METABOLIC Collected: 06/26/2017 Status: F Source: BLANK PROFILE (BMP) 5:45 AM [facility] REPOSITORY TYPE CODE TESTS RESULT OUT OF RANGE REFERENCE UNITS LAB L501.0100 74-106 mg/dL High GLU 144 Result Comment: Fasting Glucose result greater than or equal to 126 mg/dL suggests DIABETES MELLITUS per A.D.A. criteria. Please note revised GLUCOSE reference range effective 2017. LAB L501.1000 7-18 mg/dL High BUN 80 LAB L501.1100 0.55-1.02 mg/dL High CREAT,SERUM 3.63 Result Comment: The validity of the calculated GFR AND GFRAA in patients over 70 years has not been determined. Clinical correlation is essential. LAB L501.1110 >60 mL/min Low EST GFR 13 Result Comment: Non- GFR Calc LAB L501.1115 >60 mL/min Low EST GFR - AA 15 Result Comment: GFR Calc LAB L501.1255 ml/min Normal Estimated CRCL 9.02 LAB L501.1300 10-20 RATIO High BUN/CRE 22.0 LAB L501.2200 8.5-10. mg/dL Normal 1 CA 8.5 LAB L501.5300 136-145 mmol/L Normal NA 139 LAB L501.5600 3.5-5.1 mmol/L Normal K 4.3 LAB L501.5900 98-107 mmol/L Normal CL 107 LAB L501.6100 21.0-32 mmol/L Normal .0 CO2 23.0 LAB L501.6200 5-15 Normal GAP 9 Performed By: #### L500.2500 #### [facility] [address] [place], [address] CBC W/DIFF, AUTOMATED Collected: 06/26/2017 Status: C Source: BLANK 5:45 AM [facility] REPOSITORY TYPE CODE TESTS RESULT OUT OF REFERENCE UNITS RANGE LAB L100.1000 4.4-11.0 K/mm3 WBC High 12.4 LAB L100.1200 4.2-5.4 M/mm3 Low RBC 3.37 LAB L100.1300 12.0-15.0 g/dl Low HGB 9.6 LAB L100.1400 37-47 % Low HCT 30.3 LAB L100.1500 81-99 fL MCV Normal 89.9 LAB L100.1600 27.0-32.0 pg MCH Normal 28.5 LAB L100.1700 32-36 g/gl Low MCHC 31.7 LAB L100.1810 11.6-14.6 % RDW CV High 16.2 LAB L100.1820 35.1-43.9 fl RDW SD High 51.9 LAB L100.1900 150-450 K/mm3 PLT Normal 246 LAB L100.2000 6.2-12.0 fl MPV Normal 10.1 LAB L100.3100 MANUAL DIFF CELLS COUNTED Normal 100 LAB L100.3200 47-70 % SEGS High 73 LAB L100.3300 0-5 % BAND Normal 3 LAB L100.3400 0-1 % META Normal 1 LAB L100.3500 0-0 MYELO High 1 LAB L100.3800 19-41 % Low LYMPH 8 LAB L100.3900 0-10 % MONOCYTE High 14 LAB L100.5500 ADEQ PLT EST Normal ADEQUATE LAB L100.5650 PLT MORPH Normal LARGE LAB L100.7300 ANISO Normal 1+ LAB L100.7600 HYPOCHROMASIA Normal 1+ LAB L100.7700 MICROCYTES Normal 1+ LAB L100.2620 2.0-7.7 X10 3/uL Absolute Neut High 9.4 LAB L100.2720 0.83-4.51 X10 3/ul Absolute Lymph Normal 0.99 LAB L100.9900 PATH REV Normal Reviewed Result Comment: Neutrophilic leukocytosis with slight left shift. Normocytic anemia. Clinical correlation suggested. Cali Stein D.O. 06/26/17 AMENDED REPORT 06/26/17 1150 PATH REV previously reported as: July jamie Performed By: #### L100.0100 #### [facility] [address] [place], [address] KIDNEY AND BLADDER Observed: 06/26/2017 Status: F Source: BLANK 12:00 AM [facility] REPOSITORY [facility] Imaging Services [address] [place] [id number] Kidney and Bladder MR#: [id number] Acct: [id number] Name: ARLETTE GUALLPA Rep #: [id number] : 1935 F 82 From: Bartolo Schwarz MD PCP: Status: ADM IN Study: Kidney and Bladder Date of Exam: 06/26/17 Exam# [id number] Ordering Dr: Carie Blanco DO STUDY: RENAL ULTRASOUND - COMPLETE REASON FOR EXAM: Female, 82 years old. Hydronephrosis TECHNIQUE: Ultrasound evaluation of the kidneys was performed with real-time and static combs-scale imaging. COMPARISON: None available. FINDINGS: RIGHT KIDNEY: Normal location of the right kidney, which is normal in size. The right kidney measures 12.5 cm. There is a normal cortex of the right kidney. There are 2 cysts in the right kidney with the larger measuring 5.7 x 5.7 cm. There are no right renal calculi. There is no right hydronephrosis. DISTAL RIGHT URETER: There is non-visualization of the distal right ureter. There is no demonstrated right ureterovesical junction calculus. There is no demonstrated right ureteral jet. LEFT KIDNEY: Normal location of the left kidney, which is normal in size. The left kidney measures 13.1 cm. There is a normal cortex of the left kidney. There is a 4.9 x 4.8 cm cyst in the left kidney. There are no left renal calculi. There is no left hydronephrosis. DISTAL LEFT URETER: There is non-visualization of the distal left ureter. There is no demonstrated left ureterovesical junction calculus. There is no demonstrated left ureteral jet. BLADDER: The urinary bladder is collapsed due to the presence of a Garcia catheter and is not well evaluated. US/Kidney and Bladder IMPRESSION: Bilateral renal cysts. No renal stones. No hydronephrosis. Electronically Signed: Bartolo Schwarz, at 18:17 EDT Tel , Service support , CC: Carie Blanco DO Handkerchief Cutter: Signed BEDSIDE GLUCOSE Collected: 06/25/2017 Status: F Source: BLANK 10:36 PM [facility] REPOSITORY TYPE CODE TESTS RESULT OUT OF REFERENCE UNITS RANGE LAB L501.080 70-110 mg/dL High BEDSIDE GLU 223 Result Comment: MANAGEMENT OF PATIENT CARE PER NURSING PROTOCOL Performed By: #### L501.080 #### [facility] Point of Care [address] [place] [address] URINE SODIUM Collected: 06/25/2017 Status: F Source: BLANK 6:19 PM [facility] REPOSITORY TYPE CODE TESTS RESULT OUT OF RANGE REFERENCE UNITS LAB L501.5500 Not Establ. mmol/L Normal UR NA 114 Performed By: #### L501.5500 #### [facility] [address] [place], [address] CREATININE, URINE Collected: 06/25/2017 Status: F Source: BLANK (RANDOM) 6:19 PM [facility] REPOSITORY TYPE CODE TESTS RESULT OUT OF RANGE REFERENCE UNITS LAB L501.1200 NO RANGE EST. mg/dL Normal UR CREAT 25.60 Performed By: #### L501.1200 #### [facility] [address] [place], [address] Observed: 06/25/2017 Status: F Source: BLANK CULTURE, URINE 6:19 PM [facility] REPOSITORY Comments: Clean catch please from garcia not bag Urine Culture Culture exhibits no growth. Performed By: #### M100.0650 #### [facility] [address] [place], [address] BEDSIDE GLUCOSE Collected: 06/25/2017 Status: F Source: BLANK 4:22 PM [facility] REPOSITORY TYPE CODE TESTS RESULT OUT OF REFERENCE UNITS RANGE LAB L501.080 70-110 mg/dL High BEDSIDE GLU 169 Result Comment: MANAGEMENT OF PATIENT CARE PER NURSING PROTOCOL Performed By: #### L501.080 #### [facility] Point of Care [address] [place] [address] CONSULTATION Observed: 06/25/2017 Status: F Source: [place] 1:44 PM [facility] REPOSITORY [facility] Medical Records Department [address] [place] [address] Consultation 06/23/17 0919 MR#: [id number] Acct: [id number] Name: ARLETTE GUALLPA Rep #: [id number] : 1935 82 From: Carie Blanco DO PCP: Status: ADM IN Y [id number] - Renal 06/23/17 PCP/ Referring MD: Requesting physician: Patricia Pinto Primary care physician: Reason for Consultation:: RUBINA - History of Present Illness History of Present Illness: The patient is a 82 y/o morbidly obese F transferred from [facility] for RUBINA, obstructed kidney stone on left and questionable atrial fibrillation. She had left flank pain, dark urine with leukocytosis WBC 27K on admit. She has PMH for DM2, HTN, hypoventilation syndrome not on CPAP or oxygen at home. She was treated for UTI. Urine cx from 06/21 showed enterobacter aerogenes. She underwent left ureteral stent by and flank pain has subsided but renal function continues to worsen. She has a history of kidney stones a year ago and passed without lithotripsy. Renal US from OSH showed RK with nonobstructing stone, LK with cysts and hydronephrosis with stone in UPJ. She had progressive renal failure with creatinine 2.12 on admit progressed to 3.85 today with low urine volumes. Creatinine was 1.2 in ER at OSH. No prior labs available in [place] records. Garcia continues to show dark, vern urine. She was hypotensive on admission receiving fluid resuscitation. Lasix was discontinued. No recent iv contrast exposure. Urine sodium was 39 with Urine creatinine 116. Potassium was elevated at 5.6 yesterday improved to 4.4 with kayexalate. Currently denied nausea or vomiting. Denies shortness of breath, chest pain but has chronic leg swelling. Her metformin was discontinued on admit. - Allergies Allergies: Allergies lisinopril Adverse Reaction (Verified 06/20/17 19:14) Other COUGH - Current Medications Current Medications: Current Medications Acetaminophen (Tylenol) 650 mg PO Q6H PRN PRN PRN Reason: Mild Pain (scale 0-3)/T>100.7 Albuterol Sulfate (Ventolin Aerosols) 2.5 mg INHALATION Q2H PRN PRN PRN Reason: dyspnea, wheezing Amlodipine Besylate (Norvasc) 5 mg PO DAILY [facility] Last Admin: 06/23/17 08:35 Dose: 5 mg Aspirin (Aspirin, Baby) 81 mg PO DAILY@0800 [facility] Last Admin: 06/23/17 08:24 Dose: 81 mg Atorvastatin Calcium (Lipitor) 10 mg PO QHS [facility] Last Admin: 06/22/17 21:00 Dose: 10 mg Dextrose (D50w Syringe) 0 gm IV X1 PRN; Protocol PRN Reason: Hypoglycemia Famotidine (Pepcid) 20 mg PO BID [facility] Last Admin: 06/23/17 08:32 Dose: 20 mg Ferrous Sulfate (Ferrous Sulfate) 325 mg PO BID@1200,1700 [facility] Last Admin: 06/22/17 16:39 Dose: 325 mg Glucagon () 1 mg IM .X1 PRN PRN Reason: Hypoglycemia Hydralazine HCl (Apresoline Iv) 10 mg IV Q4H PRN PRN PRN Reason: SBP > 160 Sodium Chloride () 1,000 mls @ 50 mls/hr IV .Q20H [facility] Last Admin: 06/23/17 08:40 Dose: 50 mls/hr Ciprofloxacin (Cipro) 400 mg in 200 mls @ 200 mls/hr IV Q24 [facility] Last Admin: 06/23/17 08:40 Dose: 200 mls/hr Insulin Aspart (Novolog Flexpen (Bkc)) 0 units SC 0800,1200,1700,2200 [facility] PRN Reason: Protocol Last Admin: 06/23/17 08:24 Dose: 1 units Levothyroxine Sodium (Synthroid) 137 mcg PO DAILY@0600 [facility] Last Admin: 06/23/17 05:11 Dose: 137 mcg Loratadine (Claritin) 10 mg PO DAILY [facility] Last Admin: 06/23/17 08:32 Dose: 10 mg Metoprolol Tartrate (Lopressor (Beta Norm)) 25 mg PO BID [facility] Last Admin: 06/23/17 08:32 Dose: 25 mg Morphine Sulfate () 2 - 4 mg IV Q3H PRN PRN PRN Reason: Severe Pain (pain scale 6-10) Last Admin: 06/20/17 19:58 Dose: 4 mg Morphine Sulfate () 1 - 2 mg IV Q4H PRN PRN PRN Reason: Moderate Pain (pain scale 4-5) Nutritional Formula (Lactose Free) (Glucerna Shake) 120 ml PO 4X/DAY [facility] Last Admin: 06/23/17 08:32 Dose: Not Given Nystatin (Mycostatin Powder) 1 applic TOPICAL BID [facility] PRN Reason: Protocol Last Admin: 06/23/17 08:34 Dose: 1 applicatio Ondansetron HCl (Zofran) 4 mg IV Q8H PRN PRN PRN Reason: Nausea Oxycodone HCl (Oxyir) 5 mg PO Q4H PRN PRN PRN Reason: Moderate Pain (pain scale 4-5) Promethazine HCl (Phenergan Iv) 12.5 mg IV Q6H PRN PRN PRN Reason: NAUSEA/VOMITING Psyllium Hydrophilic Mucilloid (Metamucil) 1 packet PO DAILY PRN PRN PRN Reason: CONSTIPATION Senna/Docusate Sodium (Senokot-S, Loida-Colace) 2 tablet PO BID [facility] Last Admin: 06/23/17 08:34 Dose: Not Given Sodium Chloride () 5 - 30 ml IV UD PRN PRN Reason: SALINE FLUSH Last Admin: 06/21/17 09:30 Dose: 10 ml - Past Medical History Past Medical History (Chronic Problems): Chronic Problems HTN (hypertension) (Chronic) HLD (hyperlipidemia) (Chronic) Chronic lymphedema (Chronic) Iron deficiency anemia (Chronic) Morbid obesity (Chronic) Chronic venous stasis dermatitis (Chronic) - Past Surgical History Surgical History: - - Denies any surgical history. - Social History Marital Status: - lives with son Smoking Status: Never smoker Alcohol: None Drugs: None - Family History Maternal History Items: - - She denies any marked maternal or paternal family history including heart disease, diabetes, cancer. Paternal History Items: - - She denies any marked maternal or paternal family history including heart disease, diabetes, cancer. Review of Systems Constitutional: Reports: Weakness. Denies: Anorexia, Chills, Fever HEENT: Denies: Difficulty Hearing Cardiovascular: Reports: Edema. Denies: Chest Pain, Palpitations, Syncope Respiratory: Denies: Cough, Shortness of Breath Gastrointestinal: Denies: Abdominal Pain, Diarrhea, Nausea, Vomiting Genitourinary: Reports: Dysuria, - - dark urine, flank pain resolved after stent placement. Denies: Hematuria Musculoskeletal: Reports: - - generalized weakness Skin: Denies: Rash Neurological: Reports: -. Denies: Balance problems, Tremor, Seizures Hematologic/ Lymphatic: Denies: Anemia, Hx of blood clot Patient Problems: Active and Suspected Problems Left nephrolithiasis (Acute) Hydroureter, left (Acute) Hydronephrosis, left (Acute) Acute UTI (Acute) - Physical Exam General: Alert, Oriented x3, Cooperative, No apparent distress HEENT: PERRLA, EOMI Oral: Dry Mucosa Neck: Supple Lungs: Rales - faint right base Cardiovascular: Regular rate Abdomen: Bowel Sounds Present, Soft, Non Tender, Non-Distended, Obese Extremities: Edema - to abdomen Skin: No rashes Musculoskeletal: No Muscle Wasting Neurological: Cranial nerves II-XII grossly intact Psych/Mental Status: Normal Affect, Appropriate, Alert and oriented to time, place, person, mood and affect Vital Signs Temp Pulse Resp BP Pulse Ox 98.1 F 60 18 180/77 H 97 06/23/17 08:30 06/23/17 08:32 06/23/17 08:30 06/23/17 08:30 06/23/17 08:30 Oxygen Flow Rate (L/min) 1 Oxygen Delivery Method Nasal Cannula Weight: 106.7 kg Body Mass Index (BMI) 44.4 Finger Stick Blood Glucose 117 Intake and Output for Last 24 Hours Intake Total 2483 / 2483 2465 / 2465 502 / 502 Output Total 170 / 170 380 / 380 155 / 155 Balance 2313 / 2313 2085 / 2085 347 / 347 Microbiology Past 72 Hours 06/20/17 21:23 Urine Culture - Final Urine, Cystoscopy Enterobacter aerogenes Laboratory Tests Past 24 Hrs WBC RBC Hgb Hct MCV MCH MCHC RDW RDW Differential Plt Count WBC 22.6 H RBC 3.29 L Hgb 9.5 L Hct 30.4 L MCV 92.4 POC Glucose POC Glucose 157 H 182 H 159 H POC Glucose 170 H Clinical Impression(s) from Imaging Studies Chest X-Ray 06/21/17 08:53 IMPRESSION: CHF with cardiac enlargement and edema. Electronically Signed: Richmond Solano MD at 11:50 EDT , Service support , KUB X-Ray 06/21/17 09:00 IMPRESSION: Left urinary stent. Electronically Signed: Richmond Solano MD at 11:53 EDT , Service support , Assessment/Plan Active and Suspected Problems Left nephrolithiasis (Acute) Hydroureter, left (Acute) Hydronephrosis, left (Acute) Acute UTI (Acute) 1. RUBINA with low FENA to suggest prerenal event however creatinine continues to rise from creatinine 1.2 to 3.85 today despite iv hydration and correction of hypotension. May have ATN from sepsis syndrome. Avoid nephrotoxins. 2. Obstructed left kidney stone s/p ureteral stent 3. Enterobacter aerogenes UTI with leukocytosis intermediate coverage with rocephin. Switched to cipro renal dose. WBC 27K on admit to 22.6K today 4. DM 2 agree with discontinuation of metformin 5. HTN adjust BP meds as needed. 6. Morbid obesity with hypoventilation syndrome. 7. Anasarca with hypoalbuminemia. Oxygenation stable. Lasix as needed 8. Hyperkalemia corrected with kayexalate. Follow low K diet. 06/25/17 1344 <Electronically signed by Carie Blanco DO> Date Carie Blanco DO Cosigner Signature (if applicable): Date CC: Carie Blanco DO; Jermain Muhammad MD Signed BEDSIDE GLUCOSE Collected: 06/25/2017 Status: F Source: BLANK 11:04 AM [facility] REPOSITORY TYPE CODE TESTS RESULT OUT OF REFERENCE UNITS RANGE LAB L501.080 70-110 mg/dL High BEDSIDE GLU 249 Result Comment: MANAGEMENT OF PATIENT CARE PER NURSING PROTOCOL Performed By: #### L501.080 #### [facility] Point of Care [address] [place], [place] [id number] CBC-COMPLETE BLOOD CNT Collected: 06/25/2017 Status: F Source: BLANK NO DIFF 9:30 AM [facility] REPOSITORY Order Comment: IVT TYPE CODE TESTS RESULT OUT OF RANGE REFERENCE UNITS LAB L100.1000 4.4-11.0 K/mm3 High WBC 13.2 LAB L100.1200 4.2-5.4 M/mm3 Low RBC 3.26 LAB L100.1300 12.0-15.0 g/dl Low HGB 9.5 LAB L100.1400 37-47 % Low HCT 29.1 LAB L100.1500 81-99 fL Normal MCV 89.3 LAB L100.1600 27.0-32.0 pg Normal MCH 29.1 LAB L100.1700 32-36 g/gl Normal MCHC 32.6 LAB L100.1810 11.6-14.6 % High RDW CV 16.0 LAB L100.1820 35.1-43.9 fl High RDW SD 50.5 LAB L100.1900 150-450 K/mm3 Normal PLT 233 LAB L100.2000 6.2-12.0 fl Normal MPV 10.3 Performed By: #### L100.0500 #### [facility] [address] [place], [place], [address] RENAL PROFILE Collected: 06/25/2017 Status: F Source: BLANK 9:30 AM [facility] REPOSITORY TYPE CODE TESTS RESULT OUT OF RANGE REFERENCE UNITS LAB L501.0100 74-106 mg/dL High GLU 247 Result Comment: Glucose result greater than or equal to 200 mg/dL suggests DIABETES MELLITUS per A.D.A. criteria. Please note revised GLUCOSE reference range effective 2017. LAB L501.1000 7-18 mg/dL High BUN 78 LAB L501.1100 0.55-1.02 mg/dL High CREAT,SERUM 3.87 Result Comment: The validity of the calculated GFR AND GFRAA in patients over 70 years has not been determined. Clinical correlation is essential. LAB L501.1110 >60 mL/min Low EST GFR 12 Result Comment: Non- GFR Calc LAB L501.1115 >60 mL/min Low EST GFR - AA 14 Result Comment: GFR Calc LAB L501.1255 ml/min Normal Estimated CRCL 8.46 LAB L501.1300 10-20 RATIO High BUN/CRE 20.2 LAB L501.1800 3.2-5.0 g/dL Low ALB 2.2 LAB L501.2200 8.5-10. mg/dL Low 1 CA 8.3 LAB L501.2300 2.5-4.9 mg/dL Normal PHOS 3.3 LAB L501.5300 136-145 mmol/L Normal NA 138 LAB L501.5600 3.5-5.1 mmol/L Normal K 4.2 LAB L501.5900 98-107 mmol/L Normal CL 106 LAB L501.6100 21.0-32 mmol/L Normal .0 CO2 21.0 Performed By: #### L500.3600 #### [facility] [address] [place], [address] BEDSIDE GLUCOSE Collected: 06/25/2017 Status: F Source: BLANK 6:48 AM [facility] REPOSITORY TYPE CODE TESTS RESULT OUT OF REFERENCE UNITS RANGE LAB L501.080 70-110 mg/dL High BEDSIDE GLU 158 Result Comment: MANAGEMENT OF PATIENT CARE PER NURSING PROTOCOL Performed By: #### L501.080 #### [facility] Point of Care [address] [place] [address] BEDSIDE GLUCOSE Collected: 06/24/2017 Status: F Source: BLANK 10:10 PM [facility] REPOSITORY TYPE CODE TESTS RESULT OUT OF REFERENCE UNITS RANGE LAB L501.080 70-110 mg/dL High BEDSIDE GLU 156 Result Comment: Insulin Given MANAGEMENT OF PATIENT CARE PER NURSING PROTOCOL Performed By: #### L501.080 #### [facility] Point of Care [address] [place] [address] BEDSIDE GLUCOSE Collected: 06/24/2017 Status: F Source: BLANK 4:37 PM [facility] REPOSITORY TYPE CODE TESTS RESULT OUT OF REFERENCE UNITS RANGE LAB L501.080 70-110 mg/dL High BEDSIDE GLU 159 Result Comment: MANAGEMENT OF PATIENT CARE PER NURSING PROTOCOL Performed By: #### L501.080 #### [facility] Point of Care [address] [place] [address] HH, HEMOGLOBIN AND Collected: 06/24/2017 Status: F Source: BLANK HEMATOCRIT 2:30 PM [facility] REPOSITORY Order Comment: Comments: Follow midline placement TYPE CODE TESTS RESULT OUT OF RANGE REFERENCE UNITS LAB L100.1300 12.0-15.0 g/dl Low HGB 9.5 LAB L100.1400 37-47 % Low HCT 29.4 Performed By: #### L100.0600 #### [facility] [address] [place], [place], [address] 12 LEAD ELECTROCARDIOGRAM Observed: 06/24/2017 Status: F Source: BLANK 1:39 PM [facility] REPOSITORY [facility] Cardiovascular Services [address] [facility] [place] [address] 12 Lead EKG 06/21/17 0601 MR#: [id number] Acct: [id number] Name: ARLETTE GUALLPA Rep #: [id number] : 1935 82 From: Anastacio Mckeon MD Attending Dr: Ingrid Weiss MD Status: ADM IN Ordering Dr: Ruiz Grijalva MD Date: 06/21/17 Location: [facility] Sex: F C Admitted: 06/20/17 Test Reason : Blood Pressure : / mmHG Vent. Rate : 132 BPM Atrial Rate : 150 BPM P-R Int : 000 ms QRS Dur : 138 ms QT Int : 356 ms P-R-T Axes : 000 084 -07 degrees QTc Int : 527 ms Atrial fibrillation Right bundle branch block Abnormal ECG When compared with ECG of 20-JUN-2017 19:25, MANUAL COMPARISON REQUIRED, DATA IS UNCONFIRMED Confirmed by ANASTACIO MCKEON MD ([id number]), art editor JONO GREGG ([id number]) on 06/24/2017 1:38:44 PM Referred By: ANDRIA Confirmed By:ANASTACIO MCKEON MD 06/24/17 1338 Date Anastacio Mckeon MD CC: Ingrid Weiss MD; Ruiz Grijalva MD Signed 12 LEAD ELECTROCARDIOGRAM Observed: 06/24/2017 Status: F Source: BLANK 1:37 PM [facility] REPOSITORY [facility] Cardiovascular Services [address] [place] [address] 12 Lead EKG 06/20/171924 MR#: [id number] Acct: [id number] Name: ARLETTE GUALLPA Rep #: [id number] : 1935 82 From: Anastacio Mckeon MD Attending Dr: Ingrid Weiss MD Status: ADM IN Ordering Dr: Patricia Pinto Date: 06/20/17 Location: [facility] Sex: F C Admitted: 06/20/17 Test Reason : CHEST PAIN Blood Pressure : / mmHG Vent. Rate : 097 BPM Atrial Rate : 097 BPM P-R Int : 120 ms QRS Dur : 138 ms QT Int : 372 ms P-R-T Axes : 058 120 037 degrees QTc Int : 472 ms Normal sinus rhythm Right bundle branch block Left posterior fascicular block Bifascicular block Abnormal ECG No previous ECGs available Confirmed by WANDA SINCLAIR, ANASTACIO ([id number]), art editor JONO GREGG ([id number]) on 06/24/2017 1:37:30 PM Referred By: ANDRIA Confirmed By:ANASTACIO MCKEON MD 06/24/17 1337 Date Anastacio Mckeon MD CC: Ingrid Weiss MD; Patricia Pinto Signed BEDSIDE GLUCOSE Collected: 06/24/2017 Status: F Source: BLANK 11:20 AM [facility] REPOSITORY TYPE CODE TESTS RESULT OUT OF REFERENCE UNITS RANGE LAB L501.080 70-110 mg/dL High BEDSIDE GLU 178 Result Comment: MANAGEMENT OF PATIENT CARE PER NURSING PROTOCOL Performed By: #### L501.080 #### [facility] Point of Care [address] [place] [address] HH, HEMOGLOBIN AND Collected: 06/24/2017 Status: F Source: BLANK HEMATOCRIT 9:50 AM [facility] REPOSITORY Order Comment: UTO BY PHLEB, NURSES TOO, INFORMED DR TYPE CODE TESTS RESULT OUT OF RANGE REFERENCE UNITS LAB L100.1300 12.0-15.0 g/dl Low HGB 10.2 LAB L100.1400 37-47 % Low HCT 32.1 Performed By: #### L100.0600 #### [facility] [address] [place], [place], [address] BEDSIDE GLUCOSE Collected: 06/24/2017 Status: F Source: BLANK 6:59 AM [facility] REPOSITORY TYPE CODE TESTS RESULT OUT OF REFERENCE UNITS RANGE LAB L501.080 70-110 mg/dL High BEDSIDE GLU 184 Result Comment: Insulin Given MANAGEMENT OF PATIENT CARE PER NURSING PROTOCOL Performed By: #### L501.080 #### [facility] Point of Care [address] [place], [place] [address] RENAL PROFILE Collected: 06/24/2017 Status: F Source: BLANK 6:58 AM [facility] REPOSITORY TYPE CODE TESTS RESULT OUT OF RANGE REFERENCE UNITS LAB L501.0100 74-106 mg/dL High GLU 175 Result Comment: Fasting Glucose result greater than or equal to 126 mg/dL suggests DIABETES MELLITUS per A.D.A. criteria. Please note revised GLUCOSE reference range effective 2017. LAB L501.1000 7-18 mg/dL High BUN 70 LAB L501.1100 0.55-1.02 mg/dL High CREAT,SERUM 3.86 Result Comment: The validity of the calculated GFR AND GFRAA in patients over 70 years has not been determined. Clinical correlation is essential. LAB L501.1110 >60 mL/min Low EST GFR 12 Result Comment: Non- GFR Calc LAB L501.1115 >60 mL/min Low EST GFR - AA 14 Result Comment: GFR Calc LAB L501.1255 ml/min Normal Estimated CRCL 8.48 LAB L501.1300 10-20 RATIO Normal BUN/CRE 18.1 LAB L501.1800 3.2-5.0 g/dL Low ALB 2.2 LAB L501.2200 8.5-10. mg/dL Low 1 CA 8.3 LAB L501.2300 2.5-4.9 mg/dL Normal PHOS 3.8 LAB L501.5300 136-145 mmol/L Normal NA 136 LAB L501.5600 3.5-5.1 mmol/L Normal K 4.2 LAB L501.5900 98-107 mmol/L High CL 108 LAB L501.6100 21.0-32 mmol/L Low .0 CO2 16.0 Performed By: #### L500.3600 #### [facility] [address] [facility], [address] CBC-COMPLETE BLOOD CNT Collected: 06/24/2017 Status: F Source: BLANK NO DIFF 6:58 AM [facility] REPOSITORY TYPE CODE TESTS RESULT OUT OF RANGE REFERENCE UNITS LAB L100.1000 4.4-11.0 K/mm3 High WBC 11.4 LAB L100.1200 4.2-5.4 M/mm3 Low RBC 2.38 LAB L100.1300 12.0-15.0 g/dl Low HGB 6.8 LAB L100.1400 37-47 % Low HCT 21.9 LAB L100.1500 81-99 fL Normal MCV 92.0 LAB L100.1600 27.0-32.0 pg Normal MCH 28.6 LAB L100.1700 32-36 g/gl Low MCHC 31.1 LAB L100.1810 11.6-14.6 % High RDW CV 16.8 LAB L100.1820 35.1-43.9 fl High RDW SD 56.0 LAB L100.1900 150-450 K/mm3 Low PLT 137 LAB L100.2000 6.2-12.0 fl Normal MPV 10.0 Performed By: #### L100.0500 #### [facility] [address] [place], [place], [address] BEDSIDE GLUCOSE Collected: 06/23/2017 Status: F Source: BLANK 9:07 PM [facility] REPOSITORY TYPE CODE TESTS RESULT OUT OF REFERENCE UNITS RANGE LAB L501.080 70-110 mg/dL High BEDSIDE GLU 170 Result Comment: Insulin Given MANAGEMENT OF PATIENT CARE PER NURSING PROTOCOL Performed By: #### L501.080 #### [facility] Point of Care [address] [place] [address] BEDSIDE GLUCOSE Collected: 06/23/2017 Status: F Source: BLANK 4:17 PM [facility] REPOSITORY TYPE CODE TESTS RESULT OUT OF REFERENCE UNITS RANGE LAB L501.080 70-110 mg/dL High BEDSIDE GLU 207 Result Comment: MANAGEMENT OF PATIENT CARE PER NURSING PROTOCOL Performed By: #### L501.080 #### [facility] Point of Care [address] [place] [address] BEDSIDE GLUCOSE Collected: 06/23/2017 Status: F Source: BLANK 11:48 AM [facility] REPOSITORY TYPE CODE TESTS RESULT OUT OF REFERENCE UNITS RANGE LAB L501.080 70-110 mg/dL High BEDSIDE GLU 176 Result Comment: MANAGEMENT OF PATIENT CARE PER NURSING PROTOCOL Performed By: #### L501.080 #### [facility] Point of Care [address] [place] [address] BEDSIDE GLUCOSE Collected: 06/23/2017 Status: F Source: BLANK 6:51 AM [facility] REPOSITORY TYPE CODE TESTS RESULT OUT OF REFERENCE UNITS RANGE LAB L501.080 70-110 mg/dL High BEDSIDE GLU 157 Result Comment: MANAGEMENT OF PATIENT CARE PER NURSING PROTOCOL Performed By: #### L501.080 #### [facility] Point of Care [address] [place], [place] [id number] CBC-COMPLETE BLOOD CNT Collected: 06/23/2017 Status: F Source: BLANK NO DIFF 5:40 AM [facility] REPOSITORY TYPE CODE TESTS RESULT OUT OF RANGE REFERENCE UNITS LAB L100.1000 4.4-11.0 K/mm3 High WBC 22.6 LAB L100.1200 4.2-5.4 M/mm3 Low RBC 3.29 LAB L100.1300 12.0-15.0 g/dl Low HGB 9.5 LAB L100.1400 37-47 % Low HCT 30.4 LAB L100.1500 81-99 fL Normal MCV 92.4 LAB L100.1600 27.0-32.0 pg Normal MCH 28.9 LAB L100.1700 32-36 g/gl Low MCHC 31.3 LAB L100.1810 11.6-14.6 % High RDW CV 16.6 LAB L100.1820 35.1-43.9 fl High RDW SD 56.1 LAB L100.1900 150-450 K/mm3 Normal PLT 224 LAB L100.2000 6.2-12.0 fl Normal MPV 10.4 Performed By: #### L100.0500 #### [facility] [address] [place], [address] BEDSIDE GLUCOSE Collected: 06/22/2017 Status: F Source: [place] 9:03 PM [facility] REPOSITORY TYPE CODE TESTS RESULT OUT OF REFERENCE UNITS RANGE LAB L501.080 70-110 mg/dL High BEDSIDE GLU 182 Result Comment: MANAGEMENT OF PATIENT CARE PER NURSING PROTOCOL Performed By: #### L501.080 #### [facility] Point of Care [address] [place] [address] BEDSIDE GLUCOSE Collected: 06/22/2017 Status: F Source: [place] 4:36 PM [facility] REPOSITORY TYPE CODE TESTS RESULT OUT OF REFERENCE UNITS RANGE LAB L501.080 70-110 mg/dL High BEDSIDE GLU 159 Result Comment: MANAGEMENT OF PATIENT CARE PER NURSING PROTOCOL Performed By: #### L501.080 #### [facility] Point of Care [address] [place] [address] URINALYSIS, COMPLETE Collected: 06/22/2017 Status: F Source: BLANK 11:40 AM [facility] REPOSITORY Order Comment: COLOR OF URINE MAY AFFECT DIPSTICK RESULTS. How was Urine Obtained? CATHETER SPECIMEN TYPE CODE TESTS RESULT OUT OF RANGE REFERENCE UNITS LAB L400.3000 Yellow COLOR Normal Brown LAB L400.3050 Clear Normal CLARITY Cloudy LAB L400.3200 Normal mg/dl Normal GLUCOSE, UR Normal LAB L400.3300 Negative mg/dL High BILIRUBIN URINE 1 Result Comment: COLOR OF URINE MAY AFFECT DIPSTICK RESULTS. LAB L400.3400 Negative mg/dl High KETONE UR 5 LAB L400.3465 1.002-1.030 Normal SP.GR. DIPSTX 1.020 LAB L400.3550 5.0 - 8.0 pH Normal UR 5.0 LAB L400.3600 Negative mg/dl High PROT DIPSTX 100 LAB L400.3700 Normal mg/dl Normal UROBILI Normal LAB L400.3750 Negative High NITRITE UR Positive LAB L400.3780 Negative /ul High OCCULT 250 BLOOD-UR LAB L400.3800 Negative /ul High LEUK ESTERASE 500 LAB L400.4050 0-5 /hpf Normal WBC 10-25 SEEN LAB L400.4100 0-5 /hpf Normal RBC-UA > 100 SEEN Result Comment: Microscopic field is filled. Other elements may be obscured. LAB L400.4150 5-10 /hpf Normal SQUAM EPI 0 SEEN LAB L400.4300 None Seen /hpf Normal BACTERIA 1+ LAB L400.4350 <or=2+ /hpf Normal MUCUS, URINE 0 SEEN LAB L400.5200 None Seen /hpf Normal YEAST-URINE 2+ Performed By: #### L400.0001 #### [facility] [address] [facility] [address] CREATININE, URINE Collected: 06/22/2017 Status: F Source: [place] (RANDOM) 11:40 AM [facility] REPOSITORY TYPE CODE TESTS RESULT OUT OF RANGE REFERENCE UNITS LAB L501.1200 NO RANGE EST. mg/dL Normal UR CREAT 116.00 Performed By: #### L501.1200 #### [facility] [address] URINE SODIUM Collected: 06/22/2017 Status: F Source: NEOSHO 11:40 AM [facility] REPOSITORY TYPE CODE TESTS RESULT OUT OF RANGE REFERENCE UNITS LAB L501.5500 Not Establ. mmol/L Normal UR NA 39 Performed By: #### L501.5500 #### [facility] [address] [facility] [address] BEDSIDE GLUCOSE Collected: 06/22/2017 Status: F Source: NEOSHO 11:34 AM [facility] REPOSITORY TYPE CODE TESTS RESULT OUT OF REFERENCE UNITS RANGE LAB L501.080 70-110 mg/dL High BEDSIDE GLU 170 Result Comment: MANAGEMENT OF PATIENT CARE PER NURSING PROTOCOL Performed By: #### L501.080 #### [facility] Point of Care [address] [place] [address] BEDSIDE GLUCOSE Collected: 06/22/2017 Status: F Source: BLANK 6:47 AM [facility] REPOSITORY TYPE CODE TESTS RESULT OUT OF REFERENCE UNITS RANGE LAB L501.080 70-110 mg/dL High BEDSIDE GLU 154 Result Comment: MANAGEMENT OF PATIENT CARE PER NURSING PROTOCOL Performed By: #### L501.080 #### [facility] Point [facility] Care [address] [place] [address] CBC-COMPLETE BLOOD CNT Collected: 06/22/2017 Status: F Source: BLANK NO DIFF 5:40 AM [facility] REPOSITORY TYPE CODE TESTS RESULT OUT OF RANGE REFERENCE UNITS LAB L100.1000 4.4-11.0 K/mm3 High WBC 24.6 LAB L100.1200 4.2-5.4 M/mm3 Low RBC 3.28 LAB L100.1300 12.0-15.0 g/dl Low HGB 9.4 LAB L100.1400 37-47 % Low HCT 31.4 LAB L100.1500 81-99 fL Normal MCV 95.7 LAB L100.1600 27.0-32.0 pg Normal MCH 28.7 LAB L100.1700 32-36 g/gl Low MCHC 29.9 LAB L100.1810 11.6-14.6 % High RDW CV 16.9 LAB L100.1820 35.1-43.9 fl High RDW SD 58.4 LAB L100.1900 150-450 K/mm3 Normal PLT 245 LAB L100.2000 6.2-12.0 fl Normal MPV 10.1 Performed By: #### L100.0500 #### [facility] [address] [place], [place], [address] BASIC METABOLIC Collected: 06/22/2017 Status: F Source: BLANK PROFILE (BMP) 5:40 AM [facility] REPOSITORY TYPE CODE TESTS RESULT OUT OF RANGE REFERENCE UNITS LAB L501.0100 74-106 mg/dL High GLU 138 Result Comment: Fasting Glucose result greater than or equal to 126 mg/dL suggests DIABETES MELLITUS per A.D.A. criteria. Please note revised GLUCOSE reference range effective 2017. LAB L501.1000 7-18 mg/dL High BUN 43 LAB L501.1100 0.55-1.02 mg/dL High CREAT,SERUM 3.15 Result Comment: The validity of the calculated GFR AND GFRAA in patients over 70 years has not been determined. Clinical correlation is essential. LAB L501.1110 >60 mL/min Low EST GFR 15 Result Comment: Non- GFR Calc LAB L501.1115 >60 mL/min Low EST GFR - AA 18 Result Comment: GFR Calc LAB L501.1255 ml/min Normal Estimated CRCL 10.39 LAB L501.1300 10-20 RATIO Normal BUN/CRE 13.7 LAB L501.2200 8.5-10 mg/dL Low .1 CA 7.9 LAB L501.5300 136-14 mmol/L Normal 5 NA 139 LAB L501.5600 3.5-5. mmol/L High 1 K 5.6 LAB L501.5900 98-107 mmol/L Normal CL 105 LAB L501.6100 21.0-3 mmol/L Normal 2.0 CO2 24.0 LAB L501.6200 5-15 Normal GAP 10 Performed By: #### L500.2500, L501.5200 #### [facility] [address] [address] [facility] [place], [address] MAGNESIUM Collected: 06/22/2017 Status: F Source: BLANK 5:40 AM [facility] REPOSITORY TYPE CODE TESTS RESULT OUT OF RANGE REFERENCE UNITS LAB L501.5200 1.6-2.6 mg/dL Normal MG 2.0 Result Comment: Please note revised Magnesium reference range effective 2017. Performed By: #### L500.2500, L501.5200 #### [facility] [address] [place], [address] BEDSIDE GLUCOSE Collected: 06/21/2017 Status: F Source: BLANK 9:56 PM [facility] REPOSITORY TYPE CODE TESTS RESULT OUT OF REFERENCE UNITS RANGE LAB L501.080 70-110 mg/dL High BEDSIDE GLU 159 Result Comment: MANAGEMENT OF PATIENT CARE PER NURSING PROTOCOL Performed By: #### L501.080 #### [facility] Point [facility] Care [address] [place], [place] [address] BEDSIDE GLUCOSE Collected: 06/21/2017 Status: F Source: BLANK 5:08 PM [facility] REPOSITORY TYPE CODE TESTS RESULT OUT OF REFERENCE UNITS RANGE LAB L501.080 70-110 mg/dL High BEDSIDE GLU 190 Result Comment: MANAGEMENT OF PATIENT CARE PER NURSING PROTOCOL Performed By: #### L501.080 #### [facility] Point [facility] Care [address] [place], [place] [address] BEDSIDE GLUCOSE Collected: 06/21/2017 Status: F Source: BLANK 11:17 AM [facility] REPOSITORY TYPE CODE TESTS RESULT OUT OF REFERENCE UNITS RANGE LAB L501.080 70-110 mg/dL High BEDSIDE GLU 128 Result Comment: MANAGEMENT OF PATIENT CARE PER NURSING PROTOCOL Performed By: #### L501.080 #### [facility] Point [facility] Care [address] [place], [place] [address] ECHOCARDIOGRAM COMPLETE Observed: 06/21/2017 Status: F Source: NEOSHO 10:26 AM [facility] Cardiovascular Services [address] [place] [address] Echo Complete 06/21/17 0844 MR#: [id number] Acct: [id number] Name: ARLETTE GUALLPA Rep #: [id number] : 1935 82 From: Anastacio Mckeon MD [facility]ending [facility]: ADM IN Ordering Dr: Patricia Pinto Date: 06/20/17 Location: U Sex: F C Admitted: 06/20/17 Reason For Study: Afib, Aflutter Procedure This was a 2D Doppler, Color Flow transthoracic echocardiogram. The study was technically difficult. Did not use Definity due to increased PAP. Exam performed portable in patient room. Left Ventricle Normal LV size. Left ventricular systolic function is normal. The estimated ejection fraction is 55 %. Transmitral and pulmonary venous doppler flow suggestive of elevated left atrial pressure. No regional wall motion abnormalities noted. Right Ventricle Normal RV size. Normal systolic function. Atria The left atrium is mildly enlarged. Normal right atrium. Mitral Valve Normal mitral valve. Mild (1+) eccentric mitral valve insufficiency. Tricuspid Valve Normal tricuspid valve. Moderate (2+) tricuspid valve insufficiency. Pulmonary artery systolic pressure is 52 mmHg. Moderate pulmonary hypertension. Aortic Valve Trisinus/trileaflet aortic valve. Mild focal aortic valve calcification. Mild (1+) eccentric aortic valve insufficiency. Pulmonic Valve The pulmonic valve is not well visualized. Great Vessels Normal aortic root. The pulmonary artery is normal size. Normal inferior vena cava. Pericardium/Pleural No pericardial effusion. Medication Performed a rapid injection of agitated mix of 9 cc saline and 1cc air to assess for atrial septal defect. MMode/2D Measurements AND Calculations LVIDd: 4.7 cm IVSd: 1.1 cm LVOT diam: 2.0 cm LVIDs: 3.4 cm LVPWd: 0.87 cm LVOT area: 3.0 cm2 RVDd: 5.2 cm FS: 28.3 % Ao root diam: 2.7 cm LAV(MOD-bp): 62.3 ml LA dimension: 4.6 cm LAV(MOD-bp) Indexed: 30.8 ml/m2 LA A4 area: 22.0 cm2 LAV(MOD-sp2): 53.8 ml LAV(MOD-sp4): 61.0 ml RA A4 area: 15.4 cm2 Time Measurements MV dec time: 0.14 sec Doppler Measurements AND Calculations MV E max leland: 121.5 cm/sec Lat Peak E' Leland: 8.8 cm/sec Med Peak E' Leland: 5.6 cm/sec MV A max leland: 118.4 cm/sec E/E' lat: 13.7 E/E' med: 21.6 MV E/A: 1.0 MV V2 max: 123.1 cm/sec MV P1/2t max leland: 118.5 cm/sec Ao V2 max: 234.5 cm/sec MV max P.1 mmHg MV P1/2t: 84.0 msec Ao max P.0 mmHg MV V2 mean: 72.1 cm/sec MV dec slope: 413.1 cm/sec2 Ao V2 mean: 171.0 cm/sec MV mean P.4 mmHg MVA(P1/2t): 2.6 cm2 Ao mean P.2 mmHg MV V2 VTI: 40.3 cm Ao V2 VTI: 52.8 cm MVA(VTI): 2.0 cm2 KIRILL(I,D): 1.5 cm2 KIRILL(V,D): 1.7 cm2 AI max leland: 313.7 cm/sec LV V1 max: 130.1 cm/sec SV(LVOT): 79.6 ml AI max P.5 mmHg LV V1 max P.8 mmHg AI dec slope: 222.0 cm/sec2 LV V1 mean P.1 mmHg AI P1/2t: 414.0 msec LV V1 mean: 94.7 cm/sec LV V1 VTI: 26.5 cm PA V2 max: 85.3 cm/sec TR max leland: 338.6 cm/sec TR max P.9 mmHg Interpretation Summary Normal LV size. Left ventricular systolic function is normal. The estimated ejection fraction is 55 %. Transmitral and pulmonary venous doppler flow suggestive of elevated left atrial pressure. Moderate (2+) tricuspid valve insufficiency. Pulmonary artery systolic pressure is 52 mmHg. Moderate pulmonary hypertension. Ordering Physician: Patricia Pinto Performed By: Malorie Alford, MARCELL, RVT 06/21/17 1026 Date Anastacio Mckeon MD CC: Patricia Pinto; Ruiz Grijalva MD Date Dictated: 06/21/17 0844 Date Transcribed: 06/21/17 102 Handkerchief Cutter: Signed TROPONIN-I Collected: 06/21/2017 Status: F Source: NEOSHO 9:25 AM [facility] REPOSITORY Order Comment: 'TROP' Serial specimen #1, #2, #3, or #4: 4 TYPE CODE TESTS RESULT OUT OF RANGE REFERENCE UNITS LAB L501.4010 <0.06 ng/mL Normal < 0.02 TROPONIN-I Result Comment: TROPONIN-I EXPECTED VALUES <0.05 NEGATIVE 0.06 - 0.59 AT RISK OF [place] > OR = 0.60 SUGGEST [place] Performed By: #### L501.4010 #### [facility] [address] [place], [address] CHEST PA AND LATERAL Observed: 06/21/2017 Status: F Source: BLANK 8:54 AM [facility] REPOSITORY [facility] Imaging Services [address] [place] [address] Chest PA and Lateral MR#: [id number] Acct: [id number] Name: ARLETTE GUALLPA Rep #: [id number] : 1935 F 82 From: Richmond Solano MD PCP: Status: ADM IN Study: Chest PA and Lateral Date of Exam: 06/21/17 Exam# [id number] Ordering Dr: Ruiz Grijalva MD STUDY: X-RAY CHEST REASON FOR EXAM: Female, 82 years old. Shortness of breath. TECHNIQUE: Frontal and lateral views of the chest. COMPARISON: None. FINDINGS: There are monitoring devices. There is interstitial and groundglass opacification. There is no demonstrated pleural abnormality. There is moderate cardiac enlargement. Normal mediastinum and rachel. There is prominence of the pulmonary hilar arteries and peripheral pulmonary arteries, consistent with congestive heart failure (CHF). There is atherosclerotic calcification of the aortic arch with tortuosity. There is demineralization of the osseous structures. Normal visualized ribs, clavicles, and shoulders. There is no demonstrated abnormality of the visualized soft tissue structures of the upper abdomen. RAD/Chest PA and Lateral IMPRESSION: CHF with cardiac enlargement and edema. Electronically Signed: Richmond Solano MD at 11:50 EDT , Service support , CC: Ruiz Grijalva MD Handkerchief Cutter: Signed BEDSIDE GLUCOSE Collected: 06/21/2017 Status: F Source: BLANK 6:53 AM [facility] REPOSITORY TYPE CODE TESTS RESULT OUT OF REFERENCE UNITS RANGE LAB L501.080 70-110 mg/dL High BEDSIDE GLU 128 Result Comment: MANAGEMENT OF PATIENT CARE PER NURSING PROTOCOL Performed By: #### L501.080 #### [facility] Point of Care [address] [place] [address] BEDSIDE GLUCOSE Collected: 06/21/2017 Status: F Source: BLANK 4:13 AM [facility] REPOSITORY TYPE CODE TESTS RESULT OUT OF RANGE REFERENCE UNITS LAB L501.080 70-110 mg/dL Normal BEDSIDE GLU 109 Result Comment: MANAGEMENT OF PATIENT CARE PER NURSING PROTOCOL Performed By: #### L501.080 #### [facility] Point of Care [address] [place], [place] [id number] CBC-COMPLETE BLOOD CNT Collected: 06/21/2017 Status: F Source: BLANK NO DIFF 3:47 AM [facility] REPOSITORY TYPE CODE TESTS RESULT OUT OF RANGE REFERENCE UNITS LAB L100.1000 4.4-11.0 K/mm3 High WBC 27.0 LAB L100.1200 4.2-5.4 M/mm3 Low RBC 3.24 LAB L100.1300 12.0-15.0 g/dl Low HGB 9.6 LAB L100.1400 37-47 % Low HCT 31.1 LAB L100.1500 81-99 fL Normal MCV 96.0 LAB L100.1600 27.0-32.0 pg Normal MCH 29.6 LAB L100.1700 32-36 g/gl Low MCHC 30.9 LAB L100.1810 11.6-14.6 % High RDW CV 16.4 LAB L100.1820 35.1-43.9 fl High RDW SD 54.7 LAB L100.1900 150-450 K/mm3 Normal PLT 267 LAB L100.2000 6.2-12.0 fl Normal MPV 9.6 Performed By: #### L100.0500 #### [facility] [address] [facility]. [place], [place], [id number] BASIC METABOLIC Collected: 06/21/2017 Status: F Source: BLANK PROFILE (BMP) 3:47 AM [facility] REPOSITORY Order Comment: Comments: Fasting Lipid Profile TYPE CODE TESTS RESULT OUT OF RANGE REFERENCE UNITS LAB L501.0100 74-106 mg/dL High GLU 111 Result Comment: Fasting Glucose result from 100 to 125 mg/dL suggests IMPAIRED HOMEOSTASIS per A.D.A. criteria. Please note revised GLUCOSE reference range effective 2017. LAB L501.1000 7-18 mg/dL High BUN 32 LAB L501.1100 0.55-1.02 mg/dL High CREAT,SERUM 2.12 Result Comment: The validity of the calculated GFR AND GFRAA in patients over 70 years has not been determined. Clinical correlation is essential. LAB L501.1110 >60 mL/min Low EST GFR 24 Result Comment: Non- GFR Calc LAB L501.1115 >60 mL/min Low EST GFR - AA 29 Result Comment: GFR Calc LAB L501.1255 ml/min Normal Estimated CRCL 15.44 LAB L501.1300 10-20 RATIO Normal BUN/CRE 15.1 LAB L501.2200 8.5-10 mg/dL Low .1 CA 7.4 LAB L501.5300 136-14 mmol/L High 5 NA 146 LAB L501.5600 3.5-5. mmol/L Normal 1 K 4.3 LAB L501.5900 98-107 mmol/L High CL 111 LAB L501.6100 21.0-3 mmol/L Normal 2.0 CO2 24.0 LAB L501.6200 5-15 Normal GAP 11 Performed By: #### L500.2500, L500.4100 #### [facility] [address] [place], [place], [address] LIPID PROFILE Collected: 06/21/2017 Status: F Source: NEOSHO 3:47 AM [facility] REPOSITORY Order Comment: Comments: Fasting Lipid Profile TYPE CODE TESTS RESULT OUT OF RANGE REFERENCE UNITS LAB L501.4900 200 mg/dL Normal CHOL 83 Result Comment: <200 mg/dL Desirable 200-240 mg/dL Borderline >240 mg/dL High Risk LAB L501.5000 mg/dL Normal TRIG 56 Result Comment: The drugs N-Acetylcysteine and Metamizole may falsely depress this assay. Serum Triglycerides Reference Interval Normal <150 mg/dL Borderline high 150 - 199 mg/dL High 200 - 499 mg/dL Very High > or = 500 mg/dL LAB L501.6400 mg/dL Normal HDL 41 Result Comment: The drugs N-Acetylcysteine and Metamizole may falsely depress this assay. Reference Range HDL <40 mg/dL Low HDL Cholesterol HDL >or= 60 mg/dL High HDL Cholesterol LAB L501.6500 0-130 mg/dL Normal LDL 31 LAB L501.6600 5-40 mg/dL Normal VLDL 11 Performed By: #### L500.2500, L500.4100 #### [facility] [address] [facility], [address] TROPONIN-I Collected: 06/21/2017 Status: F Source: NEOSHO 3:47 AM [facility] REPOSITORY Order Comment: 'TROP' Serial specimen #1, #2, #3, or #4: 3 TYPE CODE TESTS RESULT OUT OF RANGE REFERENCE UNITS LAB L501.4010 <0.06 ng/mL Normal < 0.02 TROPONIN-I Result Comment: TROPONIN-I EXPECTED VALUES <0.05 NEGATIVE 0.06 - 0.59 AT RISK OF [place] > OR = 0.60 SUGGEST [place] Performed By: #### L501.4010 #### [facility] [address] [facility], [address] ABDOMEN SINGLE VIEW Observed: 06/21/2017 Status: F Source: NEOSHO 12:00 AM [facility] REPOSITORY [facility] Imaging Services [address] [place] [address] Abdomen Single View MR#: [id number] Acct: [id number] Name: ARLETTE GUALLPA Rep #: [id number] : 1935 F 82 From: Richmond Solano MD PCP: Status: ADM IN Study: Abdomen Single View Date of Exam: 06/21/17 Exam# [id number] Ordering Dr: Jermain Muhammad MD STUDY: X-RAY - ABDOMEN/PELVIS REASON FOR EXAM: Female, 82 years old. Left urinary stone. TECHNIQUE: AP supine views of the abdomen and pelvis. COMPARISON: None. FINDINGS: There are interstitial and groundglass opacities of the lungs. There is an unremarkable bowel gas pattern. There is no demonstrated free abdominal air. There is a urinary stent extending from the region of the left renal pelvis to the bladder. Normal soft tissue structures. Degenerative change of the spine and pelvis. RAD/Abdomen Single View IMPRESSION: Left urinary stent. Electronically Signed: Richmond Solano MD at 11:53 EDT , Service support , CC: Jermain Muhammad MD Handkerchief Cutter: Signed HEMOGLOBIN A1C Collected: 06/20/2017 Status: F Source: BLANK 11:22 PM [facility] REPOSITORY TYPE CODE TESTS RESULT OUT OF RANGE REFERENCE UNITS LAB L501.9985 4.2-6.3 % High HGB A1C 6.5 Performed By: #### L501.9985 #### [facility] [address] [facility]. [place], [place], [address] TROPONIN-I Collected: 06/20/2017 Status: F Source: BLANK 11:22 PM [facility] REPOSITORY Order Comment: 'TROP' Serial specimen #1, #2, #3, or #4: 2 TYPE CODE TESTS RESULT OUT OF RANGE REFERENCE UNITS LAB L501.4010 <0.06 ng/mL Normal < 0.02 TROPONIN-I Result Comment: TROPONIN-I EXPECTED VALUES <0.05 NEGATIVE 0.06 - 0.59 AT RISK OF [place] > OR = 0.60 SUGGEST [place] Performed By: #### L501.4010 #### [facility] [address] [place], [place], [address] BEDSIDE GLUCOSE Collected: 06/20/2017 Status: F Source: BLANK 10:37 PM [facility] REPOSITORY TYPE CODE TESTS RESULT OUT OF REFERENCE UNITS RANGE LAB L501.080 70-110 mg/dL High BEDSIDE GLU 131 Result Comment: MANAGEMENT OF PATIENT CARE PER NURSING PROTOCOL Performed By: #### L501.080 #### [facility] Point [facility] Care [address] [place], [place] [address] BEDSIDE GLUCOSE Collected: 06/20/2017 Status: F Source: BLANK 9:56 PM [facility] REPOSITORY TYPE CODE TESTS RESULT OUT OF REFERENCE UNITS RANGE LAB L501.080 70-110 mg/dL High BEDSIDE GLU 117 Result Comment: MANAGEMENT OF PATIENT CARE PER NURSING PROTOCOL Performed By: #### L501.080 #### [facility] Point of Care [address] [place] [address] OPERATIVE REPORT Observed: 06/20/2017 Status: F Source: BLANK 9:51 PM [facility] REPOSITORY [facility] Medical Records Department [address] [place] [address] Operative Report 06/20/177 MR#: [id number] Acct: [id number] Name: ARLETTE GUALLPA Rep #: [id number] : 1935 82 From: Jermain Muhammad MD PCP: Status: ADM IN [id number] Problem List (1) Left nephrolithiasis Status: Acute (2) Acute UTI Status: Acute Operative Report Date of Procedure: 06/20/17 Preop diagnosis left ureteral lithiasis UTI Postop same Procedure cystoscopy, left retrograde and left ureteral stent placement Anesthesia MAC with Hiral and local anesthesia Procedure patient was recently admitted to the hospital with an acute obstruction and having difficulty with pain management. She is brought this time for a stent placements. She is taken to the operating room placed on the table and placed in body position and prepped and draped in sterile technique. She is placed under MAC anesthesia by Dr. Blackman. At this point urethra was injected 2% lidocaine gel and after several minutes a 21 [place] scope was then placed under digital exam. Had a markedly deflected bladder necessitating significant anterior deflection of the scope to get in the bladder. The severity of the cystocele unable to find the orifice ease with the 12 lens. Urine itself was markedly purulent and some of this was collected and sent for C AND S. After flushing the bladder several times and then switch over to a 70 lens with the bridge and a guidewire is able to cannulate the left orifice with digital elevation of the trigone. The wire was then placed up in the renal pelvis the Pollick catheter was removed and over this placed a 6 x 24 stent with a good curl distally approximately small suture that was inside the bladder. At this point as there was an infection elected leave a Garcia catheter. 16 [place] was in place. Patient was then taken recovery in stable condition. That is on this dictation is Dr. Telles;radu dictating thank you 06/20/17 2151 <Electronically signed by Jermain Muhammad MD> Date Jermain Muhammad MD CC: Jermain Muhammad MD Signed Observed: 06/20/2017 Status: F Source: NEOSHO CULTURE, URINE 9:23 PM [facility] REPOSITORY Urine Culture ORGANISM 1: Enterobacter aerogenes Wenden Count >100,000 Enterobacter aerogenes: REACTION Amoxacillin/Clavulanic Acid $ >=32 R Cefazolin $ >=64 R Cefepime $ <=1 S Ceftriaxone $ 16 I Ciprofloxacin $ <=0.25 S Ertapenim $$$ <=0.5 S Gentamicin $ <=1 S Imipenem *NF 1 S Levofloxacin $ <=0.12 S Nitrofurantoin $ 64 I Piperacillin/Tazobactam $$ >=128 R Tobramycin $ <=1 S Trimethoprim/Sulfametho $ <=20 S (NF) indicates non-formulary drug at [facility]. Approval by Infectious Disease Specialist required before non-formulary drugs may be ordered and/or dispensed. Performed By: #### M100.0650 #### [facility] [address] [facility], [address] CONSULTATION Observed: 06/20/2017 Status: F Source: NEOSHO 8:19 PM [facility] REPOSITORY [facility] Medical Records Department [address] [place] [address] Consultation 06/20/172008 MR#: [id number] Acct: [id number] Name: ARELTTE GUALLPA Rep #: [id number] : 1935 82 From: Jermain Muhammad MD PCP: Status: ADM IN Location: [place] [address]-1 Problem List (1) Left nephrolithiasis Status: Acute (2) Acute UTI Status: Acute Reason for Consult Date of Consultation: 06/20/17 Reason for Consultation: Obstruction, infection and pain History of Present Illness: The patient is a 82 year old F who was transferred here [facility]. She presented there with acute onset of renal colic and CT scan showed left hydroureteronephrosis. She is also found to have urinary tract infection and patient was having significant pain. He has multiple comorbidities with chronic morbid obesity chronic edema of lower extremities diabetes mellitus type 2 long-standing but no prior cardiac issues. However in the ER residual pulmonary was noted to have episodes of A. fib. Her troponins have been negative pressure has been stable and it is thought that the severity of pain is contributing to the intermittent cardiac arrhythmia. I reviewed the hospital chart, her CT scan from general tolerating, her laboratory studies. She had a recent EKG while I was attending her that showed essentially regular rhythm her vital signs are otherwise stable. Patient is in significant pain and doing poorly with pain management. Due to the infections that she was recently given a dose of Rocephin. [] Past Medical History Past Medical History (Chronic Problems): Chronic Problems HTN (hypertension) (Chronic) HLD (hyperlipidemia) (Chronic) Chronic lymphedema (Chronic) Iron deficiency anemia (Chronic) Morbid obesity (Chronic) Chronic venous stasis dermatitis (Chronic) Allergies lisinopril Adverse Reaction (Verified 06/20/17 19:14) Other COUGH Home Medications: Ambulatory Orders Medication Instructions Recorded Amlodipine [Norvasc] 5 mg PO DAILY 06/20/17 Aspirin [Aspirin, Baby] 81 mg PO DAILY@0800 06/20/17 Atorvastatin Calcium [Lipitor] 10 mg PO QHS 06/20/17 Surgical History: - - Denies any surgical history. 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 Smoking Status: Never smoker Tobacco Use: Non-smoker Alcohol: None Drugs: None - *Family History Maternal History Items: - - She denies any marked maternal or paternal family history including heart disease, diabetes, cancer. Paternal History Items: - - She denies any marked maternal or paternal family history including heart disease, diabetes, cancer. Review of Systems Constitutional: Reports: - - obesity UNABLE TO PLACE MORE INFO INTO APPROPRIATE BOXES, BUT PT HAS DM TYPE II AND IS ON NUMEROUS MEDICATIONS FOR THIS, SHOULD BE NOTED IN PMH Patient Problems: Active and Suspected Problems Left nephrolithiasis (Acute) Hydroureter, left (Acute) Hydronephrosis, left (Acute) Acute UTI (Acute) - Physical Exam General: Alert, Oriented x3, Cooperative, - - OBESE Oral: Moist Mucosa Abdomen: Bowel Sounds Present, Obese, - - PAIN IN LEFT CVA Extremities: Edema Vital Signs Temp Pulse Resp BP Pulse Ox 99.2 F H 101 H 18 189/57 H 97 06/20/17 18:57 06/20/17 20:05 06/20/17 18:57 06/20/17 18:57 06/20/17 18:57 Oxygen Flow Rate (L/min) 5 Oxygen Delivery Method Nasal Cannula Weight: 106.7 kg Body Mass Index (BMI) 44.4 Assessment/Plan Active and Suspected Problems Left nephrolithiasis (Acute) Hydroureter, left (Acute) Hydronephrosis, left (Acute) Acute UTI (Acute) Diabetic patients with acute onset of left renal lithiasis, very proximal. Patient also has a urinary tract infection. She has numerous comorbidities and recently started with arrhythmia when in the ER and [place]. She has been started on parenteral antibiotics. At this point I feel a stent is needed for drainage and pain management. To do this under minimal anesthesia will address the stone at a later date when patient is more clinically stable. 06/20/17 2019 <Electronically signed by Jermain Muhammad MD> Date Jermain Muhammad MD Cosigner Signature (if applicable): Date CC: Jermain Muhammad MD Signed THYROID STIM HORMONE Collected: 06/20/2017 Status: F Source: BLANK (TSH) 8:06 PM [facility] REPOSITORY TYPE CODE TESTS RESULT OUT OF RANGE REFERENCE UNITS LAB L501.9520 0.358-3.74 uIU/mL Normal TSH 2.51 Performed By: #### L501.9520 #### [facility] [address] [place], [address] TROPONIN-I Collected: 06/20/2017 Status: F Source: BLANK 8:06 PM [facility] REPOSITORY Order Comment: 'TROP' Serial specimen #1, #2, #3, or #4: 1 TYPE CODE TESTS RESULT OUT OF RANGE REFERENCE UNITS LAB L501.4010 <0.06 ng/mL Normal < 0.02 TROPONIN-I Result Comment: TROPONIN-I EXPECTED VALUES <0.05 NEGATIVE 0.06 - 0.59 AT RISK OF [place] > OR = 0.60 SUGGEST [place] Performed By: #### L501.4010, L501.5200 #### [facility] [address] [facility] [place], [address] MAGNESIUM Collected: 06/20/2017 Status: F Source: NEOSHO 8:06 PM [facility] REPOSITORY Order Comment: 'TROP' Serial specimen #1, #2, #3, or #4: 1 TYPE CODE TESTS RESULT OUT OF RANGE REFERENCE UNITS LAB L501.5200 1.6-2.6 mg/dL Low MG 1.5 Result Comment: Please note revised Magnesium reference range effective 2017. Performed By: #### L501.4010, L501.5200 #### [facility] [address] [place], [address] HISTORY AND PHYSICAL Observed: 06/20/2017 Status: F Source: NEOSHO EXAM 7:51 PM [facility] REPOSITORY [facility] Medical Records Department [address] [place] [id number] History and Physical 06/20/171914 MR#: [id number] Acct: [id number] Name: ARLETTE GUALLPA Rep #: [id number] : 1935 82 From: Patricia Pinto PCP: Status: ADM IN Y [id number] Problem List (1) Left nephrolithiasis Status: Acute (2) Hydroureter, left Status: Acute (3) Hydronephrosis, left Status: Acute (4) Acute UTI Status: Acute (5) HTN (hypertension) Status: Chronic Qualifiers: Hypertension type: essential hypertension Qualified Code(s): I10 - Essential (primary) hypertension (6) HLD (hyperlipidemia) Status: Chronic Qualifiers: Hyperlipidemia type: unspecified Qualified Code(s): E78.5 - Hyperlipidemia, unspecified (7) Chronic lymphedema Status: Chronic (8) Iron deficiency anemia Status: Chronic Qualifiers: Iron deficiency anemia type: unspecified iron deficiency Qualified Code(s): D50.9 - Iron deficiency anemia, unspecified (9) Morbid obesity Status: Chronic (10) Chronic venous stasis dermatitis Status: Chronic History of Present Illness Date of Admission: 06/20/17 Chief Complaint: L CVA tenderness, dysuria The patient is a 82 y/o F w/ PMHx: Morbid Obesity, Hypoventilation Syndrome, HTN, HLD, Diabetes mellitus type II, Chronic venous stasis and chronic BL LE lymphedema, Hx Nephrolithasis who presents as OSH transfer to the [facility] on 06/20/17 with history of onset L sided abdominal and back discomfort, worsening steadily with dysuria starting today, felt likely consistent with kidney stone from her prior experience prompting OSH ED evaluation w/ noted evidence acute UTI and acute L sided hydronephrosis and hydroureter with 11 mm stone prompting request for transfer. In the OSH ED work-up included T 97.9, heart rate 71, BP 180/100, respiratory rate 18, 92% on room air, CBC with WBC 11.3, hemoglobin 11.1, platelet 344 with left shift, BMP with sodium 138, potassium 4.7, chloride 101, CO2 26, BUN/Cr 28/1.2, glucose 222, trop < 0.02, UA remarkable for UTI w/ pending UCx at [facility] ED, EKG initial with SR without acute evidence of ischemia, administered NS and rocephin 1 gm IV x 1. While in the ED at OSH she was noted to have sudden rate increase HR asymptomatic to 130s with appearance on monitor of atrial fibrillation, prior to any intervention, < 10 minutes duration she converted to regular rhythm per ED physician report. Past Medical History Past Medical History (Chronic Problems): Chronic Problems HTN (hypertension) (Chronic) HLD (hyperlipidemia) (Chronic) Chronic lymphedema (Chronic) Iron deficiency anemia (Chronic) Morbid obesity (Chronic) Chronic venous stasis dermatitis (Chronic) Allergies lisinopril Adverse Reaction (Verified 06/20/17 19:14) Other COUGH Home Medications: Ambulatory Orders Medication Instructions Recorded Amlodipine [Norvasc] 5 mg PO DAILY 06/20/17 Aspirin [Aspirin, Baby] 81 mg PO DAILY@0800 06/20/17 Atorvastatin Calcium [Lipitor] 10 mg PO QHS 06/20/17 Surgical History: - - Denies any surgical history. 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 Smoking Status: Never smoker Tobacco Use: Non-smoker Alcohol: None Drugs: None - *Family History Maternal History Items: - - She denies any marked maternal or paternal family history including heart disease, diabetes, cancer. Paternal History Items: - - She denies any marked maternal or paternal family history including heart disease, diabetes, cancer. Review of Systems Constitutional: Reports: Anorexia, Malaise, Weakness, Fatigue. Denies: Chills, Fever, Weight Change HEENT: Denies: Head Aches, Sinus Congestion, Sinus Drainage Cardiovascular: Denies: Chest Pain, Palpitations Respiratory: Denies: Cough, Shortness of breath at rest, Sputum production Gastrointestinal: Reports: Abdominal Pain, Nausea, Vomiting Genitourinary: Denies: Dysuria Musculoskeletal: Denies: Joint Pain, Joint Tenderness Skin: Reports: Skin Changes. Denies: Rash, Wounds Neurological: Denies: Numbness, Tingling, Focal weakness Psychiatric: Denies: Anxiety, Depression, Homicidal Ideations, Suicidal Ideations Hematologic/ Lymphatic: Reports: Anemia. Denies: Easy Bruising, Easy Bleeding VTE Information - Inpt Only VTE Present on Admission: No VTE Mechan Device Prophylaxis: SCD's VTE Pharm Prophylaxis ordered?: No Reason prophylaxis not ordered:: Medical Contraindication - Holding for OR, start chemoprophylaxis following if cleared per Urology. Patient Problems: Active and Suspected Problems Left nephrolithiasis (Acute) Hydroureter, left (Acute) Hydronephrosis, left (Acute) Acute UTI (Acute) Subjective: Seated upright in the bed, in severe discomfort, notes ongoing flank pain L sided. Objective: Physical Examination: General: awake, alert, oriented x 3 and cooperative, seated upright in bed, visibly in discomfort and pain. Skin: normal color, turgor, no icterus, cyanosis except BL LE notable chronic venous stasis skin changes to the bilateral lower extremities as well as severe flaking dry skin, chronic BL LE lymphedema. HEENT: AT/NC, EOMI, PERRLA, dry MM, no carotid bruits or JVD noted; but, difficult to assess given habitus and thickened neck. Lungs: Diminished breath sounds bilaterally, greater bases, poor effort secondary to ongoing flank discomfort, and severe pain, no rales, ronchi or wheezing. Heart: Currently tachycardic with regular rhythm (OSH ED ? PAF w/ RVR); no gallop, rub audible. Abdomen: soft, morbidly obese, severe L sided abdominal TTP and L flank pain, ND, hypoactive BS, difficult to assess HSM secondary to acute pain and habitus. Extremities: no cyanosis, clubbing, see skin changes. Neurological: patient awake, alert, oriented x 3; cognitive function intact; pupils equally reactive to light and accomodation; cranial nerves II-XII grossly normal, moving all 4 extremities but limited secondary to acute presentation, no focal deficits, strength severely globally decreased secondary to acute presentation. Psychiatric: affect appears strained secondary to acute pain, no acute evidence of depressive or anxiety feelings. - Physical Exam Vital Signs Temp Pulse Resp BP Pulse Ox 99.2 F H 153 H 18 189/57 H 97 06/20/17 18:57 06/20/17 19:01 06/20/17 18:57 06/20/17 18:57 06/20/17 18:57 Oxygen Flow Rate (L/min) 5 Oxygen Delivery Method Nasal Cannula Weight: 235 lb 3.732 oz Body Mass Index (BMI) 44.4 Assessment/Plan Active and Suspected Problems Left nephrolithiasis (Acute) Hydroureter, left (Acute) Hydronephrosis, left (Acute) Acute UTI (Acute) The patient is a 82 y/o F w/ PMHx: Morbid Obesity, Hypoventilation Syndrome, HTN, HLD, Diabetes mellitus type II, Chronic venous stasis and chronic BL LE lymphedema, Hx Nephrolithasis who presents as OSH transfer to the [facility] on 06/20/17 with history of onset L sided abdominal and back discomfort, worsening steadily with dysuria, felt likely consistent with kidney stone from her prior experience prompting OSH ED evaluation w/ noted evidence acute UTI and acute L sided hydronephrosis and hydroureter with 11 mm stone prompting request for transfer. (1) Acute Flank Pain, secondary to Acute Nephrolithiasis w/ Acute L sided Hydroureter and Hydronephrosis w/ 11 mm Obstructive Calculi with concurrent Acute UTI: WBC w/ 11.3 w/ L shift, UA remarkable w/ pending UCx from OSH ED, CT Abd obtained w/ as noted evidence of L sided hydronephrosis, hydroureter w/ 11 mm stone. Will admit to PCU given ? afib transiently, maintain on hydration, maintain on IV Rocephin antiobitic therapy, maintain NPO for intervention, place on Famotidine IV, PRN pain regimen oral and IV, PRN anti-emetics, monitor I AND Os. Urology consulted and planned intervention today per earlier discussions. (2) ? New onset, Transient Paroxsymal atrial fibrillation: EKG in ED OSH with no evidence of atrial fibrillation, transient event in their ED, will maintain on telemetry, obtain cardiac enzyme serial set, obtain magnesium level, obtain ECHO, obtain TSH level. Defer anticoagulation as unclear if true event and planned OR with urology as noted. Will in the interim add metoprolol 25 mg BID. (3) Diabetes mellitus type II: Hold oral home regimen, NPO currently and once appropriate transition to ADA diet, accu checks w/ ISS. (4) Hypertension: Continue home regimen including Lasix, losartan, Norvasc given renal function has remained appropriate but will repeat labs in a.m. and if worsened will hold, PRN hydralazine. (5) Hyperlipidemia: Continue home statin regimen. (6) Morbid Obesity: Weight loss and lifestyle changes encouraged, nutrition consulted. (7) Chronic venous stasis and chronic BL LE lymphedema: BL snug TAYLOR wraps. (8) Fe Deficiency Anemia: OSH ED Hgb 11.1, stable from their report of records, maintain on Fe supplementation. (9) DVT Prophylaxis: SCDs, holding chemoprophylaxis for planned OR. (10) CODE status: Discussed CODE status at length including difference between FULL code, DNR-CCA and DNR-CC status. Following discussions about the differences in these status, requested FULL CODE status. Advanced Care Planning Face to Face Time: 16 minutes. Code Visit Inpatient E AND M: 10353 Init Hosp L3 Procedures: 11132 Advncd Care Plan 30 Min 06/20/171950 <Electronically signed by Patricia Pinto > Date Patricia Pinto Cosigner Signature: Date (if applicable) CC: Patricia Pinto Signed TROPONIN Collected: 06/20/2017 Status: F Source: [facility] 3:30 PM [facility] REPOSITORY TYPE CODE TESTS RESULT OUT OF REFERENCE UNITS RANGE LAB TROPONIN 0.00 - 0.05 ng/ml I(LOINC) TROPONIN I 0.01 Result Comment: Elevated troponin (above the 99th percentile) usually indicates myocardial ischemia. Results must be interpreted within the clinical setting. 1.Non-ischemic pathology can also cause elevated troponin levels (e.g., acute pulmonary embolism, myocarditis, pericarditis, heart failure, intracranial injury, rhabdomyolisis, sepsis, shock and renal insufficiency). 2.Approximately 1% of healthy adults have elevated troponin levels. 3.Analytical false positive results rarely occur(due to multiple interferences such as heterophile antibodies). Performed By: #### [id number] #### [facility],[address] [place] [address] URINALYSIS Collected: 06/20/2017 Status: F Source: [facility] 2:35 PM [facility] REPOSITORY TYPE CODE TESTS RESULT OUT OF REFERENCE UNITS RANGE LAB URINALYSIS (LOINC) URINALYSIS Result Comment: URINALYSIS LAB Specimen Type(LOINC) Specimen Type UNSPECIFIED LAB Color(LOINC) NORMAL: YELLOW Color p.yel LAB Clarity(LOINC) NORMAL: CLEAR Clarity SL. Abnormal CLOUDY LAB ph(LOINC) NORMAL: 5.0-8.0 ph 5 LAB Protein(LOINC) NORMAL: NEGATIVE Protein 15 Abnormal LAB Glucose(LOINC) NORMAL: NORMAL Glucose NORM LAB Ketone(LOINC) NORMAL: NEGATIVE Ketone NEG LAB Bilirubin(LOINC) NORMAL: NEGATIVE NEG Bilirubin LAB Blood(LOINC) NORMAL: NEGATIVE Blood 250 Abnormal LAB Urobilinog(LOINC NORMAL: ) NORMAL NORM Urobilinog LAB Sp NORMAL: Lennon(LOINC) 1.010-1.030 Sp 1.010 Lennon LAB Nitrite(LOINC) NORMAL: NEGATIVE Nitrite NEG LAB Leukocytes(LOINC NORMAL: ) NEGATIVE 500 Abnormal Leukocytes LAB Microscopic(LOIN C) SEE Microscopic BELOW Result Comment: MICROSCOPIC LAB Wbc(LOINC) 0-5/hpf Wbc 16-25 LAB Rbc(LOINC) 0-3/hpf Rbc 5-10 LAB Casts(LOINC) Casts NONE LAB Crystals(LOINC) Crystals NONE LAB Amorphous(LOINC) Amorphous NONE LAB Bacteria(LOINC) Bacteria 2+ LAB Epi Cells(LOINC) Epi Cells FEW LAB Mucous(LOINC) Mucous NONE LAB Yeast(LOINC) Yeast NONE Performed By: #### [id number] #### [facility],[address] [place] [id number] Observed: 06/20/2017 Status: F Source: [facility] CULTURE URINE 2:35 PM [facility] REPOSITORY CULTURE URINE _URINE CULTURE_ M I C R O B I O L O G Y R E P O R T FINAL Antimicrobial Susceptibility and Organism Identification Report Specimen Number : [id number] Requested : 06/20/17 Specimen Source : CLEAN CATCH URINE Collected : 06/20/17 14:35 [place] of Isolation : Emergency Room Received : 06/20/17 14:35 Requesting Physician : vidya Patient/Specimen Tests and Comments Specimen Comments FINAL REPORT: URINE COLONY COUNT: > THAN 100,000 CFU/CC GRAM NEGATIVE RODS Organisms Identified -------- * 01 Enterobacter aerogenes 06/22/17 Comments >100,000 cfu Tech : Source : CLEAN CATCH URINE ID # : [id number] FINAL Report Date : / / : Collected : 06/20/17 14:35 Continued on Next Page M I C R O B I O L O G Y R E P O R T FINAL Antimicrobial Susceptibility and Organism Identification Report Isolate 01 Enterobacter aerogenes Enterobacter aerogenes DRUG PETER Sys. Urine --- ----- ----- Amp/Sulbactam >16/8 R Ampicillin >16 R Aztreonam <=8 S Ceftriaxone 32 I Ceftazidime >16 R Cephalothin >16 Ciprofloxacin <=1 S Cefuroxime >16 R Ertapenem <=1 S Nitrofurantoin 64 Gentamicin <=4 S Imipenem <=1 S Levofloxacin <=2 S Meropenem <=1 S Pip/Tazo 64 I Piperacillin >64 R Trimeth/Sulfa <=2/38 S Tetracycline <=4 S Tobramycin <=4 S +, ++, +++, or S = Susceptible N/R = Not Reported Gina = Beta Lactamase Positive I = Intermediate CC = Cost Code TFG = Thymidine-dependent Strain R = Resistant PETER = mcg/ml (mg/L) Blank = Data not available, or drug not advisable or tested For Blood and CSF Isolates, a Beta-Lactamase test is recommended for Enterococus species. IB appears in place of S, I (S), +, ++, or +++ with species known to possess inducible B-lactamases; potentially they may become resistant to all B-lactam drugs. Monitoring of patients during/after therapy is recommended. Avoid other/combined B-lactam drugs. (a) Use maximum doses of drug with an aminoglycoside for P. aeruginosa in patients with granulocytopenia or serious infections. (b) Breakpoints based on parenteral dose. For cefuroxime Axetil (PO) use <8=S, 8-16=I, >16=R. (c) For non-enterococcal streptococci, Micrococcus species, and Listeria species, refer to the Ampicillin interpretation. * Interpretations based on approx. adult attainable systemic/urine levels, except drugs with <3 dilutions, which print NCCLS. Doses are guidelines; consider weight and renal/hepatic function. Urine interpretation for lower UTI only. Interpretations based on NCCLS M7-A2. Ticar/K Clav'ate for gram positives based on pharmaceutical sales's breakpoints. Tech : Source : CLEAN CATCH URINE ID # : [id number] FINAL Report Date : / / : Collected : 06/20/17 14:35 06/22/17.0855.JLN. 06/21/17.0756.JLN. 06/22/[email or web address].COMPLETE Performed By: #### [id number] #### [place] [address] CT KUB (KIDNEY STONE Observed: 06/20/2017 Status: F Source: [facility] PROTOCOL) 1:11 PM [place] [address] Patient: ARLETTE GUALLPA Phone#: : [phone] Age: 82 Gender: F Pt. Type: ER Account: [id number] Location: 2 Ordering: CONOR LEUNG Exam Date: 06/20/2017/12:59 Family Phys: DANNY CHOI Charge Code: 142165 Physician: Harmon Order #: [id number] DLP Dose#: [id number] PROCEDURE: CT ABDOMEN AND PELVIS WITHOUT CONTRAST COMPARISON: [facility], CT, KUB W/O JOANA, 12/05/2014, 5:50. INDICATIONS: Flank pain TECHNIQUE: After obtaining the patient's consent, CT images of the abdomen and pelvis were created without non-ionic intravenous contrast material. All CT scans at this facility use dose modulation, iterative reconstruction, and/or weight based dosing when appropriate to reduce radiation dose to as low as reasonably achievable. IV CONTRAST: No IV contrast used,0ml TOTAL DOSE: 46.80 CTDIvol(mGy) FINDINGS: KIDNEYS: A nonobstructing 7 mm calculus is present in the right kidney. Renal cysts are present similar to previous exam. There are left renal cysts unchanged from prior exam. There is mild hydronephrosis. An 11 mm calculus is present at the ureteropelvic junction. There is left perinephric stranding. ADRENALS: Normal. No mass or enlargement. URINARY BLADDER: Normal. No visible focal wall thickening, lesion, or calculus. LIVER: Normal. No enlargement, atrophy, abnormal density, or significant focal lesion. BILIARY: Normal. No visible dilatation or calcification. PANCREAS: Normal. No lesion, fluid collection, ductal dilatation, or atrophy. SPLEEN: Normal. No enlargement or focal lesion. AORTA/VASCULAR: Calcification of the aorta is present. RETROPERITONEUM: Normal. No mass or adenopathy. BOWEL/MESENTERY: Normal. No visible mass, obstruction, or bowel wall thickening. Continued Report - Page 2 of 2 Patient: ARLETTE GUALLPA Phone#: : [phone] Age: 82 Gender: F Pt. Type: ER Account: [id number] Location: 2 Ordering: CONOR LEUNG Exam Date: 06/20/2017/12:59 Family Phys: DANNY CHOI Charge Code: 360590 Physician: Harmon Order #: [id number] DLP Dose#: [id number] ABDOMINAL WALL: A small umbilical hernia with fat is present. There is extensive subcutaneous fat stranding of the anterior abdominal wall PELVIC NODES: Normal. No adenopathy. PELVIC ORGANS: Normal. No visible mass. Pelvic organs appropriate for patient age. BONES: Vacuum phenomenon is present at the L2-3 level. Mild degenerative changes of the spine are present. LUNG BASES: Normal. No visible pulmonary or pleural disease. OTHER: Negative. CONCLUSION: 1. Bilateral renal cysts are present unchanged from prior exam. 2. A nonobstructing right renal calculus is present. 3. An 11 mm calculus is present at the left ureteropelvic junction. Dictated by: Francoise Gale MD on 06/20/2017 at 13:32 Approved by: Francoise Gale MD on 06/20/2017 at 13:32 CBC Collected: 06/20/2017 Status: F Source: [facility] 12:50 PM [facility] REPOSITORY TYPE CODE TESTS RESULT OUT OF RANGE REFERENCE UNITS LAB CBC(LOINC) CBC Result Comment: CBC-COMPLETE BLOOD COUNT LAB WBC(LOINC) 4.5 - 10.8 x 10EE3/UL WBC High 11.3 LAB RBC(LOINC) 4.10 - x 10EE6/UL 5.30 RBC Low 3.77 LAB HEMOGLOBIN(LOINC 12.0 - g/dl ) 16.0 Low HEMOGLOBIN 11.1 LAB HEMATOCRIT(LOINC 34.0 - % ) 46.0 Low HEMATOCRIT 33.9 LAB MCV(LOINC) 80 - 99 fl MCV 90 LAB MCH(LOINC) 27 - 33 pg MCH 29 LAB MCHC(LOINC) 32 - 36 X10 3 MCHC 33 LAB RDW/CV(LOINC) 12.0 - % 15.6 RDW/CV High 16.5 LAB PLATELET(LOINC) 150 - 450 x10EE3/UL PLATELET 344 LAB MPV(LOINC) 6.6 - 10.5 fl MPV 8.1 Result Comment: AUTOMATED DIFFERENTIAL LAB NEUT %(LOINC) 46.0 - 76.0 % NEUT % High 85.6 LAB LYMPH %(LOINC) 20.0 - 45.0 % Low LYMPH % 7.8 LAB MONOS %(LOINC) 0.0 - 10.0 % MONOS % 5.5 LAB EO %(LOINC) 0.0 - 7.0 % EO % 0.9 LAB BASO %(LOINC) 0.0 - 2.0 % BASO % 0.2 LAB Lymph #(LOINC) 0.80 - 2.80 x10EE3/U L Lymph # 0.90 LAB Neut #(LOINC) 1.50 - 7.10 x10EE3/U L Neut # High 9.70 LAB Cowley #(LOINC) 0.20 - 1.00 x10EE3/U L Cowley # 0.60 LAB EO #(LOINC) 0.00 - 0.50 x10EE3/U L EO # 0.10 LAB Baso #(LOINC) 0.00 - 0.10 x10EE3/U L Baso # 0.00 LAB MANUAL DIFF(LOINC) MANUAL DIFF N/A LAB MORPHOLOGY(LOINC ) MORPHOLOGY N/A Result Comment: {CD] Performed By: #### [id number] #### [facility],[address] [place] [address] CMP WITH EGFR Collected: 06/20/2017 Status: F [facility] REPOSITORY TYPE CODE TESTS RESULT OUT OF RANGE REFERENCE UNITS LAB CMP with eGFR(LOINC) CMP with eGFR Result Comment: COMPREHENSIVE METABOLIC PANEL LAB SODIUM(LOINC) 136 - 145 mmol/l SODIUM 138 LAB POTASSIUM(LOINC) 3.5 - 5.1 mmol/L POTASSIUM 4.7 LAB CHLORIDE(LOINC) 98 - 107 mmol/L CHLORIDE 101 LAB CO2(LOINC) 21.0 - mmol/L 31.0 CO2 26.0 LAB GLUCOSE(LOINC) 74 - 106 mg/dl GLUCOSE High 222 LAB BUN(LOINC) 6 - 20 mg/dl BUN High 28 LAB CREATININE(LOINC) 0.6 - 1.2 mg/dl CREATININE 1.2 LAB AST/SGOT(LOINC) 13 - 39 U/L AST/SGOT 19 LAB ALK PHOS(LOINC) 38 - 126 U/L ALK PHOS 66 LAB CALCIUM(LOINC) 8.6 - mg/dl 10.2 CALCIUM 8.9 LAB TOTAL 6.4 - 8.3 g/dl PROTEIN(LOINC) TOTAL PROTEIN 7.2 LAB ALBUMIN(LOINC) 3.4 - 4.8 g/dL ALBUMIN 3.7 LAB GLOBULIN(LOINC) 1.5 - 3.8 G/DL GLOBULIN 3.5 LAB A/G RATIO(LOINC) 0.9 - 1.6 A/G RATIO 1.1 LAB TOTAL BILI(LOINC) 0.0 - 1.5 mg/dl TOTAL BILI 0.3 LAB B/C RATIO(LOINC) 0 - 30 ratio B/C RATIO 23 LAB ALT/SGPT(LOINC) 8 - 35 U/L ALT/SGPT 18 LAB ANION GAP(LOINC) 10 - 20 mmol/L ANION GAP 16 LAB AGE(LOINC) years AGE 82 LAB eGFR(LOINC) 60 - 999 ML/MINUTE eGFR Low 43 LAB eGFR(AA)(LOINC) 60 - 999 ML/MINUTE eGFR(AA) Low 52 Result Comment: ACCORDING TO THE NATIONAL KIDNEY DISEASE EDUCATION PROGRAM(NKDE), A NORMAL eGFR IS A VALUE GREATER THAN OR EQUAL TO 60 ML/MIN/1.73 SQ METERS. CHRONIC KIDNEY DISEASE: <60mL/MIN/1.73 SQ METERS KIDNEY FAILURE: <15mL/MIN/1.73 SQ METERS THIS TEST SHOULD ONLY BE USED FOR PATIENTS 18 YEARS OF AGE AND OLDER. Performed By: #### [id number] #### [place] [address] TROPONIN Collected: 06/20/2017 Status: F Source: [facility] 12:50 PM [facility] TYPE CODE TESTS RESULT OUT OF REFERENCE UNITS RANGE LAB TROPONIN 0.00 - 0.05 ng/ml I(LOINC) TROPONIN I <0.01 Result Comment: Elevated troponin (above the 99th percentile) usually indicates myocardial ischemia. Results must be interpreted within the clinical setting. 1.Non-ischemic pathology can also cause elevated troponin levels (e.g., acute pulmonary embolism, myocarditis, pericarditis, heart failure, intracranial injury, rhabdomyolisis, sepsis, shock and renal insufficiency). 2.Approximately 1% of healthy adults have elevated troponin levels. 3.Analytical false positive results rarely occur(due to multiple interferences such as heterophile antibodies). Performed By: #### [id number] #### [place] [id number] EMERGENCY REPORT Observed: 06/16/2017 Status: F Source: [facility] 5:49 AM [facility] EMERGENCY ROOM REPORT NAME ACCOUNT SEX AGE ADMIT DISCHARGE TYPE MED. RECORD# NUMBER DATE DATE ARLETTE GUALLPA [id number] F 82 06/06/17 ER [id number] ROOM: DATE OF : 1935 PHYSICIAN NO: [id number] PHYSICIAN: GALLO BULL ADDENDUM DATE SEEN: 06/06/2017 I did discuss the case with Dr. Bull. Patient will be admitted for further IV antibiotics. Her chest x-ray showed no acute infiltrate. Her Troponin came back within normal limits. I have discussed admission with the patient. She is agreeable and so is her son who is present. D: Daniel Dorsey DO TD: 00:01 JOB #: [id number] Transcribed by: shelli Electronically signed by: E-Sign: Dr. Daniel Dorsey D.O. 06/16/17 05:48 Page 1 of 1 ARLETTE GUALLPA Emergency Room Report EMERGENCY REPORT Observed: 06/16/2017 Status: F Source: [facility] 5:46 AM [facility] EMERGENCY ROOM REPORT NAME ACCOUNT SEX AGE ADMIT DISCHARGE TYPE MED. RECORD# NUMBER DATE DATE ARLETTE GUALLPA [id number] F 82 06/06/17 ER [id number] ROOM: DATE OF : 1935 PHYSICIAN NO: [id number] PHYSICIAN: GALLO BULL HISTORY OF PRESENT ILLNESS: This is an 82-year-old white female who has been complaining of pain, redness and swelling to the bilateral lower extremities for about three months, according to her son. It has gradually been getting worse, and the patient was refusing to let her son take her to the doctor. He finally got her talked into going, and she saw her primary care physician in the office today at [facility]. They noticed that her legs from the knees down bilaterally were very red, swollen, warm and seeping, and they sent her here for admission for bilateral lower extremity cellulitis. The patient denies any fevers or sweats, but she states she is always cold. She states she had similar symptoms two year ago, but it went away with oral antibiotics. She denies any chest pain. She does have a history of diabetes but says her blood sugars have been running between 67 and 70, and her son did confirm this. She does complain of some generalized weakness, but she is still ambulating. PAST MEDICAL HISTORY: [id number] diabetes. She also has a past medical history of hypothyroidism and anxiety. MEDICATIONS: Current medications include ferrous sulfate, Lipitor, potassium chloride ER, Synthroid, Glucophage, Lasix, Xanax, glipizide XL, omeprazole, amlodipine, Losartan, potassium, Actos, Advair HFA, ProAir HFA, and Centrum Silver. ALLERGIES: She is allergic to TAYLOR inhibitors, which cause her to cough, and Elavil, which causes burning in the face. SOCIAL HISTORY: She is not a smoker and does not use alcohol. REVIEW OF SYSTEMS: Positive for bilateral lower extremity redness, warmth, swelling and pain with some seepage. She denies any chest pain, shortness of breath, cough, sputum, wheezing, abdominal pain, nausea, vomiting, diarrhea, constipation, melena, hematochezia, headache, numbness, or blurred or double vision. She does complain of some mild generalized weakness. She does complain of feeling cold but did not really say chills. Further review of systems is negative. PHYSICAL EXAMINATION: On physical examination, the patient is alert and oriented x3. She appears in no acute distress. She is pleasant and cooperative. HEENT: Pupils are equal and reactive to light. Red reflexes are intact bilaterally. Extraocular muscles are intact. No conjunctival injection. Ears: Tympanic membranes are intact bilaterally. No erythema is noted. Mouth: Mucous membranes are moist. No pharyngeal erythema. Uvula is midline and elevates. Neck is supple. Trachea is midline. No JVD or Page 1 of 2 ARLETTE GUALLPA Emergency Room Report lymphadenopathy. No posterior cervical tenderness. No nuchal rigidity. Lungs are clear to auscultation in all lung gaitan. No adventitious sounds are noted. Cardiovascular: Heart rate and rhythm are regular without murmur. Abdomen is soft and nontender with normoactive bowel sounds x4 quadrants. No guarding or rigidity. No rebound. No palpable abdominal masses. No hepatosplenomegaly. Back exhibits no midline or paraspinal region tenderness. No increased paraspinal muscle rigidity. Negative Loco's sign. Extremities: Significant bilateral lower extremity redness, warmth, and swelling with seepage which appears to be clear serous fluid from the skin of both legs. This is from the knees down. I do not see any redness or swelling above the knees. She does have good bilateral dorsalis pedis pulses. Capillary refill is less than two seconds. The swelling, redness and warmth are significant. She does move all four extremities, although she does appear to be somewhat generally weak. I note no focal deficits. Neurologic examination shows the patient to be alert and oriented x4. No sensory deficits. Speech is normal. She has some mild diffuse generalized symmetric weakness. She is pleasant and cooperative, with a normal affect. DIAGNOSTIC DATA: EKG showed a sinus rhythm with a sinus arrhythmia at a rate of 72 beats per minute, right bundle branch block, and no acute ST-segment changes noted. [place] is approximately 60 degrees. Sodium is 140, potassium 4.6, chloride 105, CO2 of 24.1, and glucose 102. BUN was elevated at 39, and creatinine was 1.2. Liver functions were within normal limits. Her anion gap was 16. Her CPK was 204. White count was 8.7 with a hemoglobin of 11.3 and a hematocrit of 34.3. Platelet count was 314,000. EMERGENCY DEPARTMENT COURSE AND TREATMENT: Presently, I have ordered IV antibiotics, vancomycin 1 gram IV piggyback, and Zosyn 3/0.375 grams IV. I do have blood cultures pending. I will wait for the rest of her bloodwork, and then I am going to give the hospitalist a call, and I do anticipate admission. DIAGNOSIS: Bilateral lower extremity cellulitis. D: Daniel Dorsey DO TD: 20:30 JOB #: [id number] Transcribed by: emily 06/07/2017 15:21 Electronically signed by: E-Sign: Dr. Daniel Dorsey D.O. 06/16/17 05:45 Page 2 of 2 LARRYKRISHNAARLETTE Nataliia Emergency Room Report DISCHARGE SUMMARY Observed: 06/12/2017 Status: F Source: [facility] 11:36 PM [facility] DISCHARGE SUMMARY NAME ACCOUNT SEX AGE ADMIT DISCHARGE TYPE MED. RECORD# NUMBER DATE DATE ARLETTE GUALLPA [id number] F 82 06/06/17 06/11/17 1 [id number] ROOM: [facility] DATE OF : 1935 DICTATING PHYSICIAN: Gallo Bull FINAL DIAGNOSES: 1. Acute bilateral lower extremity cellulitis. 2. Lymphedema. 3. Iron-deficiency anemia. 4. Pulmonary hypertension. 5. Obesity with body mass index of 42.50. 6. Diabetes mellitus type 2 with hemoglobin A1c 6.6%. DIAGNOSTIC DATA: Laboratory studies: White count on discharge 7.5, hemoglobin 10.6, hematocrit 31.7. Troponin is negative. Iron saturation is 14%. Hemoglobin A1c 6.6%. BUN on admission 39, creatinine 1.2 and on discharge BUN 20, creatinine 1.1, sodium 140, potassium 4.1, glucose 118. Occult blood stool positive x2. Blood cultures negative at 72 hours. Wound culture revealed Staphylococcus aureus. Diagnostic studies: Chest x-ray on admission with chronic interstitial changes with no acute findings. 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 Arterial flow studies completed with peripheral arterial disease, monophasic and biphasic wave frames were demonstrated bilaterally. Indices are normal on the right with diminished amplitude on the volume pulse according to the calf and ankle digit, mild diminished index at the dorsalis pedis with mildly diminished volume pulse on the calf and ankle. HOSPITAL COURSE: For full history and physical, please see chart. Brief summary, see below. This is an 82-year-old female with multiple medical problems including diabetes mellitus type 2, hyperlipidemia, hypothyroidism, lymphedema, chronic venous stasis, and obesity. She noted some swelling and erythema for the past 3 months. She did not want to show her son. It gradually worsened. She did not want to seek medical help. Once she showed him, she was willing to see a physician. She went to her primary care physician. She was sent to the emergency room. She had significant leg swelling, as well as chronic skin changes and erythema with diminished pedal pulses. She was placed on IV Zosyn and vancomycin. Arterial flow studies were checked. Blood sugars were controlled. She improved with treatment. Today, on the date of discharge, her son was present. She has been recommended for nursing home facility. They have both declined, and she was agreeable for home health Page 1 of 2 ARLETTE GUALLPA Discharge Summary care. We will wrap her legs with Taylor wraps and follow up with her primary care physician. Blood pressure 141/53, heart rate 64, respiratory rate 22, temperature 97.7, oxygen saturation 97% on room air. This is a well-nourished, well-developed, obese 82-year-old female in no acute distress. She is alert, pleasant, and cooperative. Heart: Regular rate and rhythm: Extremities: Reveal decreased erythema, as well as decreased edema. Instructions were discussed with her and her son in detail. Again, the nursing home facility was offered, and they declined. They felt they could take of it at home. She was discharged in stable condition with above instructions and to follow up with her primary care physician. MEDICATIONS ON DISCHARGE: (1) Augmentin 500 mg every 8 hours x6 days. (2) Probiotics 1 capsule daily x1 month. All other medications are as at home including (3) Potassium chloride 10 mEq twice daily. (4) ProAir inhaler 3 times daily p.r.n. (5) Glipizide ER 5 mg 3 times daily. (6) Metformin 500 mg twice daily. (7) Acetaminophen 650 mg every 4 hours p.r.n. (8) Advair 1 puff twice daily. (9) Atorvastatin 10 mg daily. (10) Centrum Silver 1 tablet daily. (10) Furosemide 40 mg daily. (11) Levothyroxine 137 mcg daily. (12) Losartan 100 mg daily. (13) Omeprazole 20 mg daily. (14) Amlodipine 5 mg daily. (15) Renetta 180 mg daily. (16) Aspirin 81 mg daily. (17) Ferrous sulfate 325 mg twice daily. DISCHARGE INSTRUCTIONS/PLAN: Increase activity as tolerated. No smoking or alcoholic beverages. Low-fat, low-cholesterol, no added salt diet. Elevate legs while sitting, as well as Taylor wraps no the legs during the day and off at night. Home healthcare for nursing. Discussed anemia follow up with Dr. Choi. Follow up with Danny Choi in the [place] office on June 23 at 2 p.m. Dictated by simeon Hernandez for Gallo Bull M.D. I personally evaluated and examined the patient and agree with above note that reflects my visit to the patient and my decision making. Gallo Bull MD TD: 06/11/17 16:35 JOB #: [id number] Transcribed by: am Electronically signed by: Shayna Bull M.D. 06/12/17 23:36 Page 2 of 2 LARRYKRISHNA ARLETTE William Discharge Summary CBC Collected: 06/11/2017 Status: F Source: [facility] 5:55 AM [facility] REPOSITORY TYPE CODE TESTS RESULT OUT OF RANGE REFERENCE UNITS LAB CBC(LOINC) CBC Result Comment: CBC-COMPLETE BLOOD COUNT LAB WBC(LOINC) 4.5 - 10.8 x 10EE3/UL WBC 7.5 LAB RBC(LOINC) 4.10 - x 10EE6/UL 5.30 RBC Low 3.58 LAB HEMOGLOBIN(LOINC 12.0 - g/dl ) 16.0 Low HEMOGLOBIN 10.6 LAB HEMATOCRIT(LOINC 34.0 - % ) 46.0 Low HEMATOCRIT 31.7 LAB MCV(LOINC) 80 - 99 fl MCV 89 LAB MCH(LOINC) 27 - 33 pg MCH 30 LAB MCHC(LOINC) 32 - 36 X10 3 MCHC 33 LAB RDW/CV(LOINC) 12.0 - % 15.6 RDW/CV High 16.0 LAB PLATELET(LOINC) 150 - 450 x10EE3/UL PLATELET 326 LAB MPV(LOINC) 6.6 - 10.5 fl MPV 8.1 Result Comment: AUTOMATED DIFFERENTIAL LAB NEUT %(LOINC) 46.0 - 76.0 % NEUT % 67.5 LAB LYMPH %(LOINC) 20.0 - 45.0 % Low LYMPH % 17.7 LAB MONOS %(LOINC) 0.0 - 10.0 % MONOS % High 11.6 LAB EO %(LOINC) 0.0 - 7.0 % EO % 2.7 LAB BASO %(LOINC) 0.0 - 2.0 % BASO % 0.5 LAB Lymph #(LOINC) 0.80 - 2.80 x10EE3/U L Lymph # 1.30 LAB Neut #(LOINC) 1.50 - 7.10 x10EE3/U L Neut # 5.10 LAB Cowley #(LOINC) 0.20 - 1.00 x10EE3/U L Cowley # 0.90 LAB EO #(LOINC) 0.00 - 0.50 x10EE3/U L EO # 0.20 LAB Baso #(LOINC) 0.00 - 0.10 x10EE3/U L Baso # 0.00 LAB MANUAL DIFF(LOINC) MANUAL DIFF N/A LAB MORPHOLOGY(LOINC ) MORPHOLOGY N/A Result Comment: {CD] Performed By: #### [id number] #### [facility],[address] [place] [address] BMP WITH EGFR Collected: 06/11/2017 Status: F Source: [facility] 5:55 AM [facility] REPOSITORY TYPE CODE TESTS RESULT OUT OF RANGE REFERENCE UNITS LAB BMP with eGFR(LOINC) BMP with eGFR Result Comment: BASIC METABOLIC PANEL LAB SODIUM(LOINC) 136 - 145 mmol/l SODIUM 140 LAB POTASSIUM(LOINC) 3.5 - 5.1 mmol/L POTASSIUM 4.1 LAB CHLORIDE(LOINC) 98 - 107 mmol/L CHLORIDE 105 LAB CO2(LOINC) 21.0 - mmol/L 31.0 CO2 25.4 LAB GLUCOSE(LOINC) 74 - 106 mg/dl GLUCOSE High 118 LAB BUN(LOINC) 6 - 20 mg/dl BUN 20 LAB CREATININE(LOINC) 0.6 - 1.2 mg/dl CREATININE 1.1 LAB CALCIUM(LOINC) 8.6 - mg/dl 10.2 CALCIUM 9.2 LAB ANION GAP(LOINC) 10 - 20 mmol/L ANION GAP 14 LAB AGE(LOINC) years AGE 82 LAB eGFR(LOINC) 60 - 999 ML/MINUTE eGFR Low 48 LAB eGFR(AA)(LOINC) 60 - 999 ML/MINUTE eGFR(AA) Low 58 Result Comment: ACCORDING TO THE NATIONAL KIDNEY DISEASE EDUCATION PROGRAM(NKDE), A NORMAL eGFR IS A VALUE GREATER THAN OR EQUAL TO 60 ML/MIN/1.73 SQ METERS. CHRONIC KIDNEY DISEASE: <60mL/MIN/1.73 SQ METERS KIDNEY FAILURE: <15mL/MIN/1.73 SQ METERS THIS TEST SHOULD ONLY BE USED FOR PATIENTS 18 YEARS OF AGE AND OLDER. Performed By: #### [id number] #### [facility],[address] [place] [address] PROGRESS NOTE Observed: 06/10/2017 Status: F Source: [facility] 10:29 PM [facility] PROGRESS NOTE NAME ACCOUNT SEX AGE ADMIT DISCHARGE TYPE MED. RECORD# NUMBER DATE DATE ARLETTE GUALLPA [id number] F 82 06/06/17 [id number] ROOM: [facility] DATE OF : 1935 DICTATING PHYSICIAN: Gallo Bull DATE OF SERVICE: June 10, 2017 SUBJECTIVE: She states she is feeling better. She has some weakness. Update from nursing staff. Her son was also present at the visit. She is still requiring oxygen. OBJECTIVE: Blood pressure is 162/80, heart rate 70, respirations 18, oxygen saturation 93% on one liter, and temperature 97.5. This is a well-nourished, well-developed, 82-year-old, obese female in no acute distress who is alert, pleasant and cooperative. She is sitting in the chair with her legs elevated. Skin is warm and dry. Lungs with normal respiratory effort, equal lung expansion, and diminished breath sounds bilaterally. Heart is a regular rate and rhythm with distant heart sounds. Extremities revealed decreased edema and chronic skin changes with lymphedema and decreased erythema. Neurologic: She is alert, oriented, and able to answer questions appropriately, and speech is clear. DIAGNOSTIC DATA: White count is 6.6, hemoglobin 10.6, and hematocrit 32.5. Iron saturation is 14%. Hemoglobin A1c is 6.6%. Sodium is 138, potassium 4.2, BUN 21 and creatinine 1.2. Glucose is 183. Occult blood stool was positive x2. Blood cultures with no growth at 72 hours. ASSESSMENT/PLAN: 1. Bilateral lower extremity cellulitis with lymphedema with gradual improvement, on broad-spectrum IV antibiotics with Zosyn and vancomycin. I recommend wrapping both legs with Taylor wraps. We will start tomorrow, and she will have follow-up with home health. 2. Mild pulmonary hypertension, a complicating factor. 3. Valvular heart disease. This will be followed as an outpatient. 4. Obesity with BMI of 42.5, a complicating factor. 5. Hypoxemia requiring oxygen supplementation. She is down to one liter. We will repeat a chest x-ray, PA and lateral, and encourage incentive spirometry every one hour while awake. 6. Iron-deficiency anemia. This will require follow-up as an outpatient. 7. Generalized weakness. I discussed with the patient and recommended a nursing home facility. She declines this option despite recommendations. She is agreeable for home health care. The above was discussed with the patient. We will attempt to wean her off oxygen today. If unable to wean, she will go home on oxygen. ARLETTE GUALLPA Page 1 of 2 All of her questions were answered, and she verbalized understanding of the plan. Dictated by simeon Hernandez for Dr. Bull. I personally evaluated and examined the patient and agree with above note that reflects my visit to the patient and my decision making. Gallo Bull MD TD: 06/10/17 14:15 JOB #: [id number] Transcribed by: emily Electronically signed by: Shayna Bull M.D. 06/10/17 22:29 ARLETTE GUALLPA Page 2 of 2 CHEST 2 VIEWS Observed: 06/10/2017 Status: F Source: [facility] 2:50 PM [facility] REPOSITORY [address] [address] Patient: ARLETTE GUALLPA. Phone#: : [phone] Age: 82 Gender: F Pt. Type: In Account: [id number] Location: 009 Ordering: [facility] Exam Date: 06/10/2017/14:29 Family Phys: DANNY CHOI Charge Code: 502484 Physician: Harmon Order #: [id number] DLP Dose#: PROCEDURE: X-RAY CHEST 2 VIEWS COMPARISON: [facility], XR, CHEST 2 VIEWS, 06/06/2017, 19:13. INDICATIONS: Dyspnea FINDINGS: LUNGS: Normal. No significant pulmonary parenchymal abnormalities. VASCULATURE: Normal. Unremarkable pulmonary vasculature. CARDIAC: Mild cardiomegaly. MEDIASTINUM: Aortic arch calcifications. PLEURA: Normal. No effusion or pleural thickening. BONES: Degenerative changes of the spine. There is stable anterior wedging in the lower thoracic spine. OTHER: Negative. CONCLUSION: No acute disease. No significant change has occurred. Dictated by: Annalee Barcenas MD on 06/10/2017 at 15:22 Approved by: Annalee Barcenas MD on 06/10/2017 at 15:22 CBC Collected: 06/10/2017 Status: F Source: [facility] 10:41 AM [facility] REPOSITORY TYPE CODE TESTS RESULT OUT OF RANGE REFERENCE UNITS LAB CBC(LOINC) CBC Result Comment: CBC-COMPLETE BLOOD COUNT LAB WBC(LOINC) 4.5 - 10.8 x 10EE3/UL WBC 6.6 LAB RBC(LOINC) 4.10 - x 10EE6/UL 5.30 RBC Low 3.64 LAB HEMOGLOBIN(LOINC 12.0 - g/dl ) 16.0 Low HEMOGLOBIN 10.6 LAB HEMATOCRIT(LOINC 34.0 - % ) 46.0 Low HEMATOCRIT 32.5 LAB MCV(LOINC) 80 - 99 fl MCV 89 LAB MCH(LOINC) 27 - 33 pg MCH 29 LAB MCHC(LOINC) 32 - 36 X10 3 MCHC 33 LAB RDW/CV(LOINC) 12.0 - % 15.6 RDW/CV High 15.7 LAB PLATELET(LOINC) 150 - 450 x10EE3/UL PLATELET 307 LAB MPV(LOINC) 6.6 - 10.5 fl MPV 8.3 Result Comment: AUTOMATED DIFFERENTIAL LAB NEUT %(LOINC) 46.0 - 76.0 % NEUT % 74.5 LAB LYMPH %(LOINC) 20.0 - 45.0 % Low LYMPH % 12.0 LAB MONOS %(LOINC) 0.0 - 10.0 % MONOS % High 11.2 LAB EO %(LOINC) 0.0 - 7.0 % EO % 2.1 LAB BASO %(LOINC) 0.0 - 2.0 % BASO % 0.2 LAB Lymph #(LOINC) 0.80 - 2.80 x10EE3/U L Lymph # 0.80 LAB Neut #(LOINC) 1.50 - 7.10 x10EE3/U L Neut # 4.90 LAB Cowley #(LOINC) 0.20 - 1.00 x10EE3/U L Cowley # 0.70 LAB EO #(LOINC) 0.00 - 0.50 x10EE3/U L EO # 0.10 LAB Baso #(LOINC) 0.00 - 0.10 x10EE3/U L Baso # 0.00 LAB MANUAL DIFF(LOINC) MANUAL DIFF N/A LAB MORPHOLOGY(LOINC ) MORPHOLOGY N/A Result Comment: {CD] Performed By: #### [id number] #### [facility],[address] [place] [address] BMP WITH EGFR Collected: 06/10/2017 Status: F Source: [facility] 10:41 AM [facility] REPOSITORY TYPE CODE TESTS RESULT OUT OF RANGE REFERENCE UNITS LAB BMP with eGFR(LOINC) BMP with eGFR Result Comment: BASIC METABOLIC PANEL LAB SODIUM(LOINC) 136 - 145 mmol/l SODIUM 138 LAB POTASSIUM(LOINC) 3.5 - 5.1 mmol/L POTASSIUM 4.2 LAB CHLORIDE(LOINC) 98 - 107 mmol/L CHLORIDE 103 LAB CO2(LOINC) 21.0 - mmol/L 31.0 CO2 26.7 LAB GLUCOSE(LOINC) 74 - 106 mg/dl GLUCOSE High 183 LAB BUN(LOINC) 6 - 20 mg/dl BUN High 21 LAB CREATININE(LOINC) 0.6 - 1.2 mg/dl CREATININE 1.2 LAB CALCIUM(LOINC) 8.6 - mg/dl 10.2 CALCIUM 9.1 LAB ANION GAP(LOINC) 10 - 20 mmol/L ANION GAP 13 LAB AGE(LOINC) years AGE 82 LAB eGFR(LOINC) 60 - 999 ML/MINUTE eGFR Low 43 LAB eGFR(AA)(LOINC) 60 - 999 ML/MINUTE eGFR(AA) Low 52 Result Comment: ACCORDING TO THE NATIONAL KIDNEY DISEASE EDUCATION PROGRAM(NKDE), A NORMAL eGFR IS A VALUE GREATER THAN OR EQUAL TO 60 ML/MIN/1.73 SQ METERS. CHRONIC KIDNEY DISEASE: <60mL/MIN/1.73 SQ METERS KIDNEY FAILURE: <15mL/MIN/1.73 SQ METERS THIS TEST SHOULD ONLY BE USED FOR PATIENTS 18 YEARS OF AGE AND OLDER. Performed By: #### [id number] #### [place] [id number] VANCOMYCIN TROUGH Collected: 06/09/2017 Status: F Source: [facility] 9:50 PM [facility] REPOSITORY TYPE CODE TESTS RESULT OUT OF RANGE REFERENCE UNITS LAB VANCOMYCIN, 10.0 - 15.0 ug/mL TROUGH(LOIN High C) 24.4 VANCOMYCIN,T ROUGH Performed By: #### [id number] #### [place] [id number] PROGRESS NOTE Observed: 06/09/2017 Status: F Source: [facility] 9:27 PM [facility] REPOSITORY [facility] PROGRESS NOTE NAME ACCOUNT SEX AGE ADMIT DISCHARGE TYPE MED. RECORD# NUMBER DATE DATE ARLETTE GUALLPA [id number] F 82 06/06/17 [id number] ROOM: DATE OF : 1935 DICTATING PHYSICIAN: Gallo Bull DATE OF SERVICE: June 09, 2017 SUBJECTIVE: The patient is feeling significantly better. She feels that her legs have improved significantly. She denies any chest pain or shortness of breath, but she continues to require oxygen supplementation. OBJECTIVE: No acute distress. She is sitting in the recliner chair comfortably. Blood pressure is 125/70, heart rate 74, respiratory rate 18, temperature 97.9, and oxygen saturation 92% on one liter nasal cannula. Skin is warm and dry. Lungs are symmetrical with equal lung expansion, diminished breath sounds bilaterally, clear to auscultation. Respiratory effort is normal. Heart is a regular rate and rhythm. Extremities with improvement of the erythema and edema. DIAGNOSTIC DATA: Echocardiogram done earlier today showed mild concentric left ventricular hypertrophy with normal wall motion and systolic function and an ejection fraction of 55-60%. Normal right ventricular size and systolic function. Mildly dilated left atrium. 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 Mild mitral annular calcification with mild mitral regurgitation. Mild calcific aortic stenosis with moderate aortic insufficiency. Grade 2 diastolic dysfunction with elevated left atrial pressure. Right ventricular systolic pressure estimated to be 43 mmHg, suggestive of mild pulmonary hypertension. Bilateral lower extremity arterial flow studies showed normal on the right and mildly diminished in the dorsalis pedis with mildly diminished volume pulse of the calf and ankle. WBC is 7.6, hemoglobin 9.8, hematocrit 30, and platelet count 277,000. Total iron is 36, TIBC 262, and iron saturation 14%. B12 level is 352. Sodium is 138, potassium 4.1, BUN 26, and creatinine 1.2. Hemoccult stools are positive. Blood cultures are negative at 48 hours. Wound culture from the right leg showed Staphylococcus aureus abundant growth. ASSESSMENT/PLAN: 1. Bilateral lower extremity cellulitis, gradually improving. Continue current treatment with Zosyn and vancomycin. 2. Mild pulmonary hypertension, likely contributing to the patient's lower extremity edema, and likely the patient has a component of lymphedema. ARLETTE GUALLPA Page 1 of 2 3. Valvular heart disease, including mild aortic stenosis, moderate aortic insufficiency, and mild mitral regurgitation. We will continue to monitor the patient and control the patient's blood pressure. 4. Obesity with a body mass index of 42.58 kg/m2, a complicating factor. 5. Hypoxemia requiring oxygen supplementation. We will try to wean off the patient's oxygen. The above was discussed with the patient. Possible discharge in the a.m. if stable. D: Gallo Bull MD TD: 06/09/17 14:40 JOB #: [id number] Transcribed by: emily Electronically signed by: EBryant Bull M.D. 06/09/17 21:27 ARLETTE GUALLPA Page 2 of 2 PROGRESS NOTE Observed: 06/09/2017 Status: F Source: [facility] 9[place] [facility] [place] NAME NUMBER SEX AGE ADMIT DISC TYPE MED.RECORD# MIGUEL William [id number] F 82 06/06/17 I/P [id number] ROOM:318 DATE OF :1935 PHYSICIAN NO.:[id number] PHYSICIAN NAME:Shayna Bull M.D. PHYSICIAN: DATE OF SERVICE: June 08, 2017 SUBJECTIVE: The patient is feeling significantly better. She continues to have lower extremity edema and erythema, although the erythema has improved. OBJECTIVE: No acute distress, sitting in the recliner chair comfortably. Blood pressure is 144/65, heart rate 69, respiratory rate 18, temperature 97.9, oxygen saturation 92% on 1 liter nasal cannula. Skin is warm and dry. Lower extremity skin bilaterally with erythema, edema, significant skin thickening, nontender to palpation. Heart is regular rate and rhythm, 2/6 systolic ejection murmur left sternal border. Lungs: Clear to auscultation bilaterally. DIAGNOSTIC DATA: Laboratory data: WBCs 6.6, hemoglobin 9.8, hematocrit 29.2. Sodium 133, potassium 4.0, BUN 30, creatinine 1.2, glucose 102. Blood cultures negative so far. Wound culture showed gram-positive cocci, abundant growth. Final culture is pending. ASSESSMENT/PLAN: 1. Bilateral lower extremity cellulitis gradually improving, although the patient has significant chronic skin changes and she has decreased dorsalis pedis pulse bilaterally. The patient is scheduled to have arterial flow studies to both lower extremities. In the meantime, we will continue current treatment with Zosyn and vancomycin until final cultures are available. 2. Dyspnea on exertion, and also the patient became somewhat hypoxic requiring oxygen supplementation. We will check an echocardiogram when available. 3. Above was discussed with the patient and her son at the bedside in details. All questions answered and they expressed understanding of the plan of care. D: Gallo Bull MD TD: 13:15 JOB #: [id number] Transcribed by: am 06/08/2017 13:43 Electronically signed by: Shayna Bull M.D. 06/09/17 21:25 PROGRESS NOTE Observed: 06/09/2017 Status: F Source: [place] 9[place] [facility] [place] NAME NUMBER SEX AGE ADMIT DISC TYPE MED. RECORD# MIGUEL ARLETTE [id number] ROOM: DATE OF : 1935 PHYSICIAN NO: [id number] PHYSICIAN: GALLO BULL, DATE OF SERVICE: June 08, 2017 SUBJECTIVE: The patient is feeling significantly better. She continues to have lower extremity edema and erythema, although the erythema has improved. OBJECTIVE: No acute distress, sitting in the recliner chair comfortably. Blood pressure is 144/65, heart rate 69, respiratory rate 18, temperature 97.9, oxygen saturation 92% on 1 liter nasal cannula. Skin is warm and dry. Lower extremity skin bilaterally with erythema, edema, significant skin thickening, nontender to palpation. Heart is regular rate and rhythm, 2/6 systolic ejection murmur left sternal border. Lungs: Clear to auscultation bilaterally. DIAGNOSTIC DATA: Laboratory data: WBCs 6.6, hemoglobin 9.8, hematocrit 29.2. Sodium 133, potassium 4.0, BUN 30, creatinine 1.2, glucose 102. Blood cultures negative so far. Wound culture showed gram-positive cocci, abundant growth. Final culture is pending. ASSESSMENT/PLAN: 1. Bilateral lower extremity cellulitis gradually improving, although the patient has significant chronic skin changes and she has decreased dorsalis pedis pulse bilaterally. The patient is scheduled to have arterial flow studies to both lower extremities. In the meantime, we will continue current treatment with Zosyn and vancomycin until final cultures are available. 2. Dyspnea on exertion, and also the patient became somewhat hypoxic requiring oxygen supplementation. We will check an echocardiogram when available. 3. Above was discussed with the patient and her son at the bedside in details. All questions answered and they expressed understanding of the plan of care. D: Gallo Bull MD TD: 13:15 JOB #: [id number] Transcribed by: navin 06/08/2017 13:43 Electronically signed by: Shayna Bull M.D. 06/09/17 21:25 ARLETTE GUALLPA Page 1 of 2 ARLETTE GUALLPA Page 2 of 2 HISTORY AND PHYSICAL Observed: 06/09/2017 Status: F Source: [place] [facility] [place] PHYSICAL NAME NUMBER SEX AGE ADMIT DISC TYPE MED. RECORD# ARLETTE GUALLPA [id number] F [id number] ROOM: DATE OF : 1935 PHYSICIAN NO: [id number] PHYSICIAN: GALLO BULL, CHIEF COMPLAINT: Increasing lower extremity edema and erythema over the last 3 months. HISTORY OF PRESENT ILLNESS: The patient is a pleasant 82-year-old lady with past medical history significant for diabetes and hypertension, who was in her usual state of health until about 3 months ago when she noticed a gradual increase in her lower extremity edema and erythema. She did not want to go to seek medical help although her son was trying to convince her. Finally, the lower extremity edema and erythema became more painful and she agreed to see a physician. She saw her primary care physician and was sent to the emergency room for evaluation and she was admitted for further treatment. She did not have any fever or sweat and she noticed gradually increase in this erythema. Of note, apparently the patient's son tried to cut her toenails and the left toe is somewhat erythematous for the last 3 days. PAST MEDICAL HISTORY: (1) Diabetes mellitus type 2. (2) Hypertension. (3) Hyperlipidemia. (4) Hypothyroidism. (5) Chronic lower extremity edema. (6) Chronic venous stasis. (7) Anxiety. (8) Irritable bowel syndrome. (9) Allergic rhinitis. (10) Previous gastritis. (11) Obesity with a body- mass index of 42.58 kg/meter squared. PAST SURGICAL HISTORY: None. CURRENT MEDICATIONS AT HOME: Advair HFA 1 puff b.i.d. as needed., Renetta 180 mg diagnosis, aspirin 81 mg daily, atorvastatin 10 mg daily, Centrum Silver daily, Ferrous sulfate 325 mg b.i.d., Lasix 40 mg daily, Levothyroxine 137 mcg daily, Losartan 100 mg daily, omeprazole 20 mg daily, p.o. glitazones 15 mg daily, potassium chloride 10 mEq twice a day, ProAir 2 puffs three times a day as needed, amlodipine 5 mg daily, glipizide ER 5 mg three times a day, metformin 500 mg twice a day. ALLERGIES: The patient is intolerant to TAYLOR inhibitor which causes her cough, Elavil which causes burning in the face. FAMILY HISTORY: Father had myocardial infarction. He at age 78. Mother had myocardial infarction in her 80s. Sister with breast cancer. She has a son that from a myocardial infarction at age 45. SOCIAL HISTORY: The patient is a . She lives with her son. She does not smoke, does not drink alcohol. REVIEW OF SYSTEMS: The patient denies any dizziness, lightheadedness or HISTORY & PHYSICAL ARLETTE GUALLPA Page 1 of 3 headache. She denied any chest pain, but she complained of having increasing shortness of breath, increasing dyspnea on exertion especially last couple of weeks. She denies any or GI symptoms, but she noticed increasing lower extremity edema, erythema and pain over the last 3 months, worse over the last week or so. The rest of the review of systems were discussed with the patient and they were negative. PHYSICAL EXAMINATION GENERAL APPEARANCE: The patient was lying down in bed comfortably in no acute distress. Well-developed, well-nourished. VITAL SIGNS: Blood pressure 110/62, heart rate 80, respiratory rate 22, temperature 98.1, oxygen saturation 95% on 2 liters nasal cannula. SKIN: Warm and dry. HEENT: Unremarkable. NECK: Supple, no nodes, no masses. No JVD. No carotid bruit, no thyroid enlargement. LUNGS: Symmetrical, equal lung expansion. Clear to auscultation. Respiratory effort normal. HEART: Regular rate and rhythm. A 2/6 systolic ejection murmur left sternal border. ABDOMEN: Obese, soft, nontender. EXTREMITIES: Lower extremities with significant skin thickening with erythema, edema, nontender to palpation. Dorsalis pedis pulse significantly diminished in both feet. NEUROLOGIC: The patient was alert, oriented x3. DIAGNOSTIC DATA: Laboratory data: WBC's 8.3, hemoglobin 10.0, hematocrit 30.5, platelet count 270,000. B-type Natriuretic Peptide 66, CPK 204, Troponin less than 0.01. A1c 6.6%. Sodium 138, potassium 4.4, BUN 34, Creatinine 1.1, glucose 98. ASSESSMENT AND PLAN: 1. Bilateral lower extremity cellulitis likely with baseline edema and possibly lymphedema. Rule out peripheral vascular disease. Cultures obtained. Will continue current treatment with antibiotics Zosyn and Vancomycin until final cultures are available. Will check arterial flow studies to rule out peripheral vascular disease. 2. Dyspnea on exertion. Although the B-type Natriuretic Peptide is normal, will obtain an echocardiogram to check for valvular structures and rule out the HISTORY & PHYSICAL MIGUEL ARLETTE F Page 2 of 3 possibility for pulmonary hypertension. The patient mentioned that she did not have obstructive sleep apnea. 3. Obesity with a body-mass index of 42.58 kg/meter squared a complicating factor. 4. Diabetes mellitus type 2 with good control of blood sugars and normal A1c. Will monitor blood sugars and cover with sliding scale. 5. The rest of the medical problems are stable at this time. Will monitor patient. 6. Above was discussed with patient in detail. All questions answered and she expressed understanding of the plan of care. D: Gallo Bull MD TD: 21:13 JOB #: [id number] Transcribed by: shelli June 07, 2017 09:33 PM Electronically signed by: Shayna Bull M.D. 06/09/17 21:24 Update to H&P: [ ] No changes: I have examined the patient and reviewed the H&P and there are no changes. [ ] As previously dictated with the following changes: PHYSICIAN SIGNATURE: TIME: DATE: HISTORY & PHYSICAL ARLETTE GUALLPA Page 3 of 3 CV ARTERIAL BILAT Observed: 06/09/2017 Status: F Source: [facility]ULT[facility] 9:19 AM [place] [address] Patient: ARLETTE GUALLPA. Phone#: : 1935 Age: 82 Gender: F Pt. Type: In Account: [id number] Location: 009 Ordering: GALLO BULL Exam Date: 06/09/2017/7:44 Family Phys: DANNY CHOI Charge Code: [id number] Physician: Harmon Order #: [id number] DLP Dose#: PROCEDURE: ARTERIAL BILAT LOWER MULTIPLE PHYSIOLOGY COMPARISON: None. INDICATIONS: Sweeling, peripheral vascular disease TECHNIQUE: Resting continuous-wave Doppler recordings were obtained from the femoral, popliteal, tibial and dorsalis pedis arteries. Resting volume pulse recordings and segmental limb pressures were obtained at the upper thigh, lower thigh, upper calf and ankle levels. CONTINUOUS-WAVE DOPPLER RIGHT LEFT Femoral Artery Biphasic Biphasic Popliteal Artery Biphasic Biphasic Posterior Tibial Artery Monophasic Monophasic Dorsalis Pedis Biphasic Biphasic VOLUME PULSE RECORDINGS RIGHT LEFT Upper Thigh N/A N/A Lower Thigh Normal Mildly abnormal Calf Mildly abnormal Mildly abnormal Ankle Moderately abnormal Moderately abnormal Toe (PPG) Abnormal Abnormal SEGMENTAL SYSTOLIC LIMB PRESSURES RIGHT (mmHg) LEFT (mmHg) Brachial: 159 160 Lower thigh: NC NC Calf: 166 NC Ankle (DPA): 155 149 Ankle (LOOM FIXER APPRENTICE): 159 175 Continued Report - Page 2 of 2 Patient: ARLETTE GUALLPA Phone#: : 1935 Age: 82 Gender: F Pt. Type: In Account: [id number] Location: 009 Ordering: BUTROS LATOUF Exam Date: 06/09/2017/7:44 Family Phys: DANNY CHOI Charge Code: [id number] Physician: Harmon Order #: [id number] DLP Dose#: ANKLE BRACHIAL INDEX RIGHT LEFT 0.99 1.09 Urology Physician Assistant: AMIRA FINDINGS: Right Lower Extremity: Right lower extremity demonstrates biphasic wave form in the femoral, popliteal and dorsalis pedis arteries. There is monophasic waveform in the posterior tibial artery. Volume pulse recordings demonstrates diminished amplitude at the calf, ankle and digits. There are no significant pressure differentials in the segmental limb pressures when comparing side to side or from level to level. Left Lower Extremity: The left lower extremity demonstrates biphasic waveform in the femoral, popliteal and dorsalis pedis arteries. There is monophasic waveform in the posterior tibial artery. Volume pulse recordings demonstrates diminished amplitude at the catheter and ankle. There are no significant pressure differentials in the segmental limb pressures when comparing side to side or from level to level at the posterior tibial level. There is mildly diminished index at the dorsalis pedis. PPG waveform from the great digit was normal. CONCLUSION: 1. Monophasic and biphasic waveforms are demonstrated bilaterally. 2. Indices are normal on the right there is however diminished amplitude on the volume pulse according at the calf ankle and digit. 3. There is mildly diminished index at the dorsalis pedis. There is mildly diminished volume pulse according to the calf and ankle. Dictated by: Francoise Gale MD on 06/09/2017 at 9:45 Approved by: Francoise Gale MD on 06/09/2017 at 9:45 CV ECHO COMPLETE Observed: 06/09/2017 Status: F Source: [facility]OD [place] 9:13 AM [place] [address] Patient: ARLETTE GUALLPA Phone#: : 1935 Age: 82 Gender: F Pt. Type: In Account: [id number] Location: 009 Ordering: BUTROS LATOUF Exam Date: 06/09/2017/6:44 Family Phys: DANNY CHOI Charge Code: [id number] Physician: Harmon Order #: [id number] DLP Dose#: PROCEDURE: ECHOCARDIOGRAM WITH DOPPLER AND COLOR FLOW HISTORY: 82-year-old female with hypertension and diabetes INDICATIONS: Dyspnea TECHNIQUE: A 2-D ultrasound, color spectral Doppler and M-mode evaluation of the heart and great vessels. PATIENT MEASUREMENTS: Height (in.): 62 BSA: 2 Weight (lbs.): 233 BP: 125/75 Urology Physician Assistant: AMIRA M MODE 2D MEASUREMENTS AND CALCULATIONS: LVIDd: 4.58 cm LVIDs: 3.00 cm IVSd: 1.34 cm LVPWd: 1.29 cm LVOT diam: 1.96 cm FS: 34.37 % Ao Root diam: 2.71 cm LA diam: 4.76 cm LA Volume Index: 35 mL/m2 LA A4 Area: 24.5 cm RA A4 Area: 15.6 cm2 RVDd: 2.21 cm TAPSE: 15 mm DOPPLER MEASUREMENTS AND CALCULATIONS MITRAL MV E MAX leland: 140.07 cm/s MV A MAX leland: 159.33 cm/s MV E-A ratio: 0.88 MVA VTI 2.09 cm2 Continued Report - Page 2 of 3 Patient: ARLETTE GUALLPA Phone#: : 1935 Age: 82 Gender: F Pt. Type: In Account: [id number] Location: [facility] Ordering: GALLO BULL Exam Date: 06/09/2017/6:44 Family Phys: DANNY CHOI Charge Code: [id number] Physician: Harmon Order #: [id number] DLP Dose#: MV V2 max: 142.71 cm/s MV max P.19 mm[Hg] MV V2 mean: 82.10 cm/s MV mean P.16 mm[Hg] MV V2 VTI: 44.87 cm MV PHT: 108.38 ms MVA PHT 2.03 cm2 Lat Peak E' Leland 9 cm/s Septal Peak E' LELAND 8 cm/s Lateral E./E.' 15.9 Medial E./E.' 18.3 AORTIC Ao V2 max: 241.42 cm/s Ao max P.36 mm[Hg] Ao V2 mean: 171.74 cm/s Ao mean P.96 mm[Hg] Ao V2 VTI: 49.93 cm KIRILL (V Max): 1.87 cm2 KIRILL (VTI): 1.88 cm2 AI max leland 415.21 cm/s AI max PG 69.02 mm[Hg] AI dec [place] 273.16 cm/s2 AI PHT 442.72 ms LV V1 Max 149.58 cm/s LV V1 Max PG 8.95 mm[Hg] LV V1 Mean PG 4.47 mm[Hg] LV V1 mean 98.72 cm/s LV V1 VTI 31.06 cm PULMONIC PA V2 Max 116.27 cm/s PA Max PG 5.41 mm[Hg] TRICUSPID TR Max Leland 293.93 cm/s TR max PG 34.59 mm[Hg] RVSP 43 mmHg 2D/M-MODE AND COLOR FLOW LEFT VENTRICLE: Mild concentric left ventricle hypertrophy with normal wall motion and systolic function, ejection fraction 55-60%. Grade 2 diastolic dysfunction with elevated left atrial pressure. WALL MOTION: 1 - Basal anterior: Normal. 7 - Mid anterior: Normal. 13 - Apical anterior: Normal. Continued Report - Page 3 of 3 Patient: ARLETTE GUALLPA Phone#: : 1935 Age: 82 Gender: F Pt. Type: In Account: [id number] Location: [facility] Ordering: GALLO BULL Exam Date: 06/09/2017/6:44 Family Phys: DANNY CHOI Charge Code: [id number] Physician: Harmon Order #: [id number] DLP Dose#: 2 - Basal anteroseptal: Normal. 8 - Mid anteroseptal: Normal. 14 - Apical septal: Normal. 3 - Basal inferoseptal: Normal. 9 - Mid inferoseptal: Normal. 15 - Apical inferior: Normal. 4 - Basal inferior: Normal. 10-Mid inferior: Normal. 16 - Apical lateral: Normal. 5 - Basal inferolateral: Normal. 11-Mid inferolateral: Normal. 6 - Basal anterolateral: Normal. 12-Mid anterolateral: Normal. RIGHT VENTRICLE: Normal size and systolic function LEFT ATRIUM: Mildly dilated RIGHT ATRIUM: Normal ATRIAL SEPTUM: Lipomatous hypertrophy with atrial septal aneurysm. MITRAL VALVE: Mild mitral annular calcification. Normal leaflet structure and mobility. Mild mitral regurgitation. TRICUSPID VALVE: Normal leaflet structure and mobility. Trace tricuspid regurgitation. AORTIC VALVE: Trileaflet aortic valve with mild diffuse aortic valve thickening, calcification and restriction. Mild calcific aortic stenosis with peak gradient of 24 mmHg and mean gradient of 13 mmHg with a peak velocity of 2.4 m/s and calculated aortic valve area 1.9 cm. Moderate aortic insufficiency. PULMONIC VALVE: Normal leaflet structure facility. Trace pulmonic insufficiency. AORTIC ROOT: Normal IVC/SVC: Mildly dilated and normal respirophasic response PERICARDIUM: No significant pericardial effusion CONCLUSION: 1. Mild concentric left ventricle hypertrophy with normal wall motion and systolic function, ejection fraction 55- 60%. 2. Normal right size and systolic function. 3. Mildly dilated left atrium. 4. 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 5. Mild mitral annular calcification with mild mitral regurgitation. 6. Mild calcific aortic stenosis with moderate aortic insufficiency. 7. Grade 2 diastolic dysfunction with elevated left atrial pressure. 8. RVSP estimated to be 43 mmHg, suggestive of mild pulmonary hypertension. Dictated by: EVIN MATHEWS on 06/09/2017 at 10:42 Approved by: EVIN MATHEWS on 06/09/2017 at 10:42 CBC Collected: 06/09/2017 Status: F Source: [facility] 4:47 AM [facility] REPOSITORY TYPE CODE TESTS RESULT OUT OF RANGE REFERENCE UNITS LAB CBC(LOINC) CBC Result Comment: CBC-COMPLETE BLOOD COUNT LAB WBC(LOINC) 4.5 - 10.8 x 10EE3/UL WBC 7.6 LAB RBC(LOINC) 4.10 - x 10EE6/UL 5.30 RBC Low 3.36 LAB HEMOGLOBIN(LOINC 12.0 - g/dl ) 16.0 Low HEMOGLOBIN 9.8 LAB HEMATOCRIT(LOINC 34.0 - % ) 46.0 Low HEMATOCRIT 30.0 LAB MCV(LOINC) 80 - 99 fl MCV 89 LAB MCH(LOINC) 27 - 33 pg MCH 29 LAB MCHC(LOINC) 32 - 36 X10 3 MCHC 33 LAB RDW/CV(LOINC) 12.0 - % 15.6 RDW/CV High 15.7 LAB PLATELET(LOINC) 150 - 450 x10EE3/UL PLATELET 277 LAB MPV(LOINC) 6.6 - 10.5 fl MPV 8.6 Result Comment: AUTOMATED DIFFERENTIAL LAB NEUT %(LOINC) 46.0 - 76.0 % NEUT % 71.9 LAB LYMPH %(LOINC) 20.0 - 45.0 % Low LYMPH % 14.6 LAB MONOS %(LOINC) 0.0 - 10.0 % MONOS % High 11.0 LAB EO %(LOINC) 0.0 - 7.0 % EO % 1.7 LAB BASO %(LOINC) 0.0 - 2.0 % BASO % 0.8 LAB Lymph #(LOINC) 0.80 - 2.80 x10EE3/U L Lymph # 1.10 LAB Neut #(LOINC) 1.50 - 7.10 x10EE3/U L Neut # 5.50 LAB Cowley #(LOINC) 0.20 - 1.00 x10EE3/U L Cowley # 0.80 LAB EO #(LOINC) 0.00 - 0.50 x10EE3/U L EO # 0.10 LAB Baso #(LOINC) 0.00 - 0.10 x10EE3/U L Baso # 0.10 LAB MANUAL DIFF(LOINC) MANUAL DIFF N/A LAB MORPHOLOGY(LOINC ) MORPHOLOGY N/A Result Comment: {CD] Performed By: #### [id number] #### [place] [id number] RETICULOCYTE COUNT Collected: 06/09/2017 Status: F Source: [facility] 4:47 [facility] REPOSITORY TYPE CODE TESTS RESULT OUT OF REFERENCE UNITS RANGE LAB RETIC 0.0 - 2.3 % COUNT(LOINC) RETIC 1.4 COUNT LAB IRF(LOINC) 0.20 - 0.46 IRF High IRF 0.61 Performed By: #### [id number] #### [facility],[address] [place] [address] BMP WITH EGFR Collected: 06/09/2017 Status: F Source: [facility] 4:47 [facility] REPOSITORY TYPE CODE TESTS RESULT OUT OF RANGE REFERENCE UNITS LAB BMP with eGFR(LOINC) BMP with eGFR Result Comment: BASIC METABOLIC PANEL LAB SODIUM(LOINC) 136 - 145 mmol/l SODIUM 138 LAB POTASSIUM(LOINC) 3.5 - 5.1 mmol/L POTASSIUM 4.1 LAB CHLORIDE(LOINC) 98 - 107 mmol/L CHLORIDE 104 LAB CO2(LOINC) 21.0 - mmol/L 31.0 CO2 26.0 LAB GLUCOSE(LOINC) 74 - 106 mg/dl GLUCOSE 106 LAB BUN(LOINC) 6 - 20 mg/dl BUN High 26 LAB CREATININE(LOINC) 0.6 - 1.2 mg/dl CREATININE 1.2 LAB CALCIUM(LOINC) 8.6 - mg/dl 10.2 CALCIUM 9.0 LAB ANION GAP(LOINC) 10 - 20 mmol/L ANION GAP 12 LAB AGE(LOINC) years AGE 82 LAB eGFR(LOINC) 60 - 999 ML/MINUTE eGFR Low 43 LAB eGFR(AA)(LOINC) 60 - 999 ML/MINUTE eGFR(AA) Low 52 Result Comment: ACCORDING TO THE NATIONAL KIDNEY DISEASE EDUCATION PROGRAM(NKDE), A NORMAL eGFR IS A VALUE GREATER THAN OR EQUAL TO 60 ML/MIN/1.73 SQ METERS. CHRONIC KIDNEY DISEASE: <60mL/MIN/1.73 SQ METERS KIDNEY FAILURE: <15mL/MIN/1.73 SQ METERS THIS TEST SHOULD ONLY BE USED FOR PATIENTS 18 YEARS OF AGE AND OLDER. Performed By: #### [id number] #### [place] [id number] IRON AND UIBC Collected: 06/09/2017 Status: F Source: [facility] 4:47 [facility] REPOSITORY TYPE CODE TESTS RESULT OUT OF RANGE REFERENCE UNITS LAB IRON(LOINC) 50 - 170 ug/dl Low IRON 36 LAB UIBC(LOINC) 155 - 355 ug/dL UIBC 226 LAB TIBC(LOINC) 250 - 450 ug/dl TIBC 262 LAB Sat%(LOINC) 20 - 50 % Low Sat% 14 Performed By: #### [id number] #### [place] [id number] FERRITIN Collected: 06/09/2017 Status: F Source: [facility] 4:47 [facility] REPOSITORY TYPE CODE TESTS RESULT OUT OF REFERENCE UNITS RANGE LAB FERRITIN(LO 10 - 291 ng/mL INC) FERRITIN 33 Performed By: #### [id number] #### [address] [id number] VITAMIN B-12 Collected: 06/09/2017 Status: F Source: [facility] 4:47 [facility] REPOSITORY TYPE CODE TESTS RESULT OUT OF REFERENCE UNITS RANGE LAB N(LOINC) 180 - 914 pg/mL VITAMIN B12 352 Performed By: #### [id number] #### [place] [id number] FOLATES Collected: 06/09/2017 Status: F Source: [facility] 4:47 AM [facility] REPOSITORY TYPE CODE TESTS RESULT OUT OF REFERENCE UNITS RANGE LAB FOLATES(SCOTTY 3.5 - 20.0 ng/ml NC) High FOLATES >23.4 Performed By: #### [id number] #### [place] [id number] OCCULT BLOOD STOOL (3 Collected: 06/08/2017 Status: F Source: JARROD MCFARLAEN SPECIMENS) 3:41 PM [facility] REPOSITORY TYPE CODE TESTS RESULT OUT OF RANGE REFERENCE UNITS LAB OCCULT BLOOD [NEGATIVE STOOL(LOINC) Abnormal OCCULT POSITIVE BLOOD STOOL Performed By: #### [id number] #### [place] [id number] VANCOMYCIN PEAK Collected: 06/08/2017 Status: F Source: [facility] 1:05 [facility] REPOSITORY TYPE CODE TESTS RESULT OUT OF RANGE REFERENCE UNITS LAB VANCOMYCIN, 20.0 - 40.0 ug/mL PEAK(LOINC) 32.8 VANCOMYCIN,P EAK Performed By: #### [id number] #### [place] [id number] CBC Collected: 06/08/2017 Status: F Source: [facility] 12:56 AM [facility] REPOSITORY TYPE CODE TESTS RESULT OUT OF RANGE REFERENCE UNITS LAB CBC(LOINC) CBC Result Comment: CBC-COMPLETE BLOOD COUNT LAB WBC(LOINC) 4.5 - 10.8 x 10EE3/UL WBC 6.6 LAB RBC(LOINC) 4.10 - x 10EE6/UL 5.30 RBC Low 3.28 LAB HEMOGLOBIN(LOINC 12.0 - g/dl ) 16.0 Low HEMOGLOBIN 9.8 LAB HEMATOCRIT(LOINC 34.0 - % ) 46.0 Low HEMATOCRIT 29.2 LAB MCV(LOINC) 80 - 99 fl MCV 89 LAB MCH(LOINC) 27 - 33 pg MCH 30 LAB MCHC(LOINC) 32 - 36 X10 3 MCHC 34 LAB RDW/CV(LOINC) 12.0 - % 15.6 RDW/CV High 15.8 LAB PLATELET(LOINC) 150 - 450 x10EE3/UL PLATELET 271 LAB MPV(LOINC) 6.6 - 10.5 fl MPV 8.2 Result Comment: AUTOMATED DIFFERENTIAL LAB NEUT %(LOINC) 46.0 - 76.0 % NEUT % 69.5 LAB LYMPH %(LOINC) 20.0 - 45.0 % Low LYMPH % 17.6 LAB MONOS %(LOINC) 0.0 - 10.0 % MONOS % High 10.9 LAB EO %(LOINC) 0.0 - 7.0 % EO % 1.3 LAB BASO %(LOINC) 0.0 - 2.0 % BASO % 0.7 LAB Lymph #(LOINC) 0.80 - 2.80 x10EE3/U L Lymph # 1.20 LAB Neut #(LOINC) 1.50 - 7.10 x10EE3/U L Neut # 4.60 LAB Cowley #(LOINC) 0.20 - 1.00 x10EE3/U L Cowley # 0.70 LAB EO #(LOINC) 0.00 - 0.50 x10EE3/U L EO # 0.10 LAB Baso #(LOINC) 0.00 - 0.10 x10EE3/U L Baso # 0.00 LAB MANUAL DIFF(LOINC) MANUAL DIFF N/A LAB MORPHOLOGY(LOINC ) MORPHOLOGY N/A Result Comment: {CD] Performed By: #### [id number] #### [facility],[address] [place] [address] BMP WITH EGFR Collected: 06/08/2017 Status: F Source: [facility] 12:56 AM [facility] REPOSITORY TYPE CODE TESTS RESULT OUT OF RANGE REFERENCE UNITS LAB BMP with eGFR(LOINC) BMP with eGFR Result Comment: BASIC METABOLIC PANEL LAB SODIUM(LOINC) 136 - 145 mmol/l SODIUM Low 133 LAB POTASSIUM(LOINC) 3.5 - 5.1 mmol/L POTASSIUM 4.0 LAB CHLORIDE(LOINC) 98 - 107 mmol/L CHLORIDE 101 LAB CO2(LOINC) 21.0 - mmol/L 31.0 CO2 24.5 LAB GLUCOSE(LOINC) 74 - 106 mg/dl GLUCOSE 102 LAB BUN(LOINC) 6 - 20 mg/dl BUN High 30 LAB CREATININE(LOINC) 0.6 - 1.2 mg/dl CREATININE 1.2 LAB CALCIUM(LOINC) 8.6 - mg/dl 10.2 CALCIUM 8.6 LAB ANION GAP(LOINC) 10 - 20 mmol/L ANION GAP 12 LAB AGE(LOINC) years AGE 82 LAB eGFR(LOINC) 60 - 999 ML/MINUTE eGFR Low 43 LAB eGFR(AA)(LOINC) 60 - 999 ML/MINUTE eGFR(AA) Low 52 Result Comment: ACCORDING TO THE NATIONAL KIDNEY DISEASE EDUCATION PROGRAM(NKDE), A NORMAL eGFR IS A VALUE GREATER THAN OR EQUAL TO 60 ML/MIN/1.73 SQ METERS. CHRONIC KIDNEY DISEASE: <60mL/MIN/1.73 SQ METERS KIDNEY FAILURE: <15mL/MIN/1.73 SQ METERS THIS TEST SHOULD ONLY BE USED FOR PATIENTS 18 YEARS OF AGE AND OLDER. Performed By: #### [id number] #### [place] [id number] VANCOMYCIN TROUGH Collected: 06/07/2017 Status: F Source: [facility] 9:30 PM [facility] REPOSITORY TYPE CODE TESTS RESULT OUT OF RANGE REFERENCE UNITS LAB VANCOMYCIN, 10.0 - 15.0 ug/mL TROUGH(LOIN C) 13.7 VANCOMYCIN,T ROUGH Performed By: #### [id number] #### [place] [id number] CBC Collected: 06/07/2017 Status: F Source: [facility] 7:50 AM [facility] REPOSITORY TYPE CODE TESTS RESULT OUT OF RANGE REFERENCE UNITS LAB CBC(LOINC) CBC Result Comment: CBC-COMPLETE BLOOD COUNT LAB WBC(LOINC) 4.5 - 10.8 x 10EE3/UL WBC 8.3 LAB RBC(LOINC) 4.10 - x 10EE6/UL 5.30 RBC Low 3.43 LAB HEMOGLOBIN(LOINC 12.0 - g/dl ) 16.0 Low HEMOGLOBIN 10.0 LAB HEMATOCRIT(LOINC 34.0 - % ) 46.0 Low HEMATOCRIT 30.5 LAB MCV(LOINC) 80 - 99 fl MCV 89 LAB MCH(LOINC) 27 - 33 pg MCH 29 LAB MCHC(LOINC) 32 - 36 X10 3 MCHC 33 LAB RDW/CV(LOINC) 12.0 - % 15.6 RDW/CV High 15.7 LAB PLATELET(LOINC) 150 - 450 x10EE3/UL PLATELET 270 LAB MPV(LOINC) 6.6 - 10.5 fl MPV 7.9 Result Comment: AUTOMATED DIFFERENTIAL LAB NEUT %(LOINC) 46.0 - 76.0 % NEUT % High 78.4 LAB LYMPH %(LOINC) 20.0 - 45.0 % Low LYMPH % 11.2 LAB MONOS %(LOINC) 0.0 - 10.0 % MONOS % 9.3 LAB EO %(LOINC) 0.0 - 7.0 % EO % 0.9 LAB BASO %(LOINC) 0.0 - 2.0 % BASO % 0.2 LAB Lymph #(LOINC) 0.80 - 2.80 x10EE3/U L Lymph # 0.90 LAB Neut #(LOINC) 1.50 - 7.10 x10EE3/U L Neut # 6.50 LAB Cowley #(LOINC) 0.20 - 1.00 x10EE3/U L Cowley # 0.80 LAB EO #(LOINC) 0.00 - 0.50 x10EE3/U L EO # 0.10 LAB Baso #(LOINC) 0.00 - 0.10 x10EE3/U L Baso # 0.00 LAB MANUAL DIFF(LOINC) MANUAL DIFF N/A LAB MORPHOLOGY(LOINC ) MORPHOLOGY N/A Result Comment: {CD] Performed By: #### [id number] #### [facility],[address] [place] [address] TROPONIN Collected: 06/07/2017 Status: F Source: [facility] 7:50 AM [facility] REPOSITORY TYPE CODE TESTS RESULT OUT OF REFERENCE UNITS RANGE LAB TROPONIN 0.00 - 0.05 ng/ml I(LOINC) TROPONIN I <0.01 Result Comment: Elevated troponin (above the 99th percentile) usually indicates myocardial ischemia. Results must be interpreted within the clinical setting. 1.Non-ischemic pathology can also cause elevated troponin levels (e.g., acute pulmonary embolism, myocarditis, pericarditis, heart failure, intracranial injury, rhabdomyolisis, sepsis, shock and renal insufficiency). 2.Approximately 1% of healthy adults have elevated troponin levels. 3.Analytical false positive results rarely occur(due to multiple interferences such as heterophile antibodies). Performed By: #### [id number] #### [facility],[address] [place] [address] BMP WITH EGFR Collected: 06/07/2017 Status: F Source: [facility] 7:50 [facility] REPOSITORY TYPE CODE TESTS RESULT OUT OF RANGE REFERENCE UNITS LAB BMP with eGFR(LOINC) BMP with eGFR Result Comment: BASIC METABOLIC PANEL LAB SODIUM(LOINC) 136 - 145 mmol/l SODIUM 138 LAB POTASSIUM(LOINC) 3.5 - 5.1 mmol/L POTASSIUM 4.4 LAB CHLORIDE(LOINC) 98 - 107 mmol/L CHLORIDE 106 LAB CO2(LOINC) 21.0 - mmol/L 31.0 CO2 22.5 LAB GLUCOSE(LOINC) 74 - 106 mg/dl GLUCOSE 98 LAB BUN(LOINC) 6 - 20 mg/dl BUN High 34 LAB CREATININE(LOINC) 0.6 - 1.2 mg/dl CREATININE 1.1 LAB CALCIUM(LOINC) 8.6 - mg/dl 10.2 CALCIUM 8.6 LAB ANION GAP(LOINC) 10 - 20 mmol/L ANION GAP 14 LAB AGE(LOINC) years AGE 82 LAB eGFR(LOINC) 60 - 999 ML/MINUTE eGFR Low 48 LAB eGFR(AA)(LOINC) 60 - 999 ML/MINUTE eGFR(AA) Low 58 Result Comment: ACCORDING TO THE NATIONAL KIDNEY DISEASE EDUCATION PROGRAM(NKDE), A NORMAL eGFR IS A VALUE GREATER THAN OR EQUAL TO 60 ML/MIN/1.73 SQ METERS. CHRONIC KIDNEY DISEASE: <60mL/MIN/1.73 SQ METERS KIDNEY FAILURE: <15mL/MIN/1.73 SQ METERS THIS TEST SHOULD ONLY BE USED FOR PATIENTS 18 YEARS OF AGE AND OLDER. Performed By: #### [id number] #### [facility],[address] [place], [place] [id number] HGB A1C Collected: 06/07/2017 Status: F Source: [facility] 7:50 [facility] REPOSITORY TYPE CODE TESTS RESULT OUT OF RANGE REFERENCE UNITS LAB HGB 4.4 - 6.4 % A1C(LOINC) High HGB A1C 6.6 Result Comment: {HB] {A1] Performed By: #### [id number] #### [address] [address] TROPONIN Collected: 06/07/2017 Status: C Source: [facility] 2:05 [facility] REPOSITORY TYPE CODE TESTS RESULT OUT OF REFERENCE UNITS RANGE LAB TROPONIN(LO INC) TROPONIN Result Comment: SEE SCANNED IMAGES FOR REPORT Elevated troponin (above the 99th percentile) usually indicates myocardial ischemia. Results must be interpreted within the clinical setting. 1.Non-ischemic pathology can also cause elevated troponin levels (e.g., acute pulmonary embolism, myocarditis, pericarditis, heart failure, intracranial injury, rhabdomyolisis, sepsis, shock and renal insufficiency). 2.Approximately 1% of healthy adults have elevated troponin levels. 3.Analytical false positive results rarely occur(due to multiple interferences such as heterophile antibodies). Performed By: #### [id number] #### [address] [address] TROPI Collected: 06/07/2017 Status: F Source: [facility] 2:05 AM [facility] REPOSITORY TYPE CODE TESTS RESULT OUT OF REFERENCE UNITS RANGE LAB TROPI(LOINC 0.000-0.040 ng/mL ) Troponin I <0.015 Result Comment: Troponin I reference ranges (11/29/13): 0.00-0.040 ng/mL Negative and non-diagnostic. >0.040 ng/mL Consistent with cardiac damage, increased clinical risk and possibility of myocardial infarction. Serial measurements, a rise & fall in test results, clinical history, appropriate symptoms and/or ECG changes may help assess possibility of [place]. *Other non-acute coronary syndrome conditions such as CHF, myocarditis, pulmonary emboli, sepsis and cardiac surgery could result in myocardial damage and increased troponin levels. Performed By: #### TROPI #### [place] [address] TROPONIN Collected: 06/06/2017 Status: F Source: [facility] 11:05 PM [facility] REPOSITORY TYPE CODE TESTS RESULT OUT OF REFERENCE UNITS RANGE LAB TROPONIN 0.00 - 0.05 ng/ml I(LOINC) TROPONIN I 0.01 Result Comment: Elevated troponin (above the 99th percentile) usually indicates myocardial ischemia. Results must be interpreted within the clinical setting. 1.Non-ischemic pathology can also cause elevated troponin levels (e.g., acute pulmonary embolism, myocarditis, pericarditis, heart failure, intracranial injury, rhabdomyolisis, sepsis, shock and renal insufficiency). 2.Approximately 1% of healthy adults have elevated troponin levels. 3.Analytical false positive results rarely occur(due to multiple interferences such as heterophile antibodies). Performed By: #### [id number] #### [facility],[address] [place] [address] Observed: 06/06/2017 Status: F Source: [facility] CULTURE WOUND 8:48 PM [facility] REPOSITORY CULTURE WOUND _WOUND CULTURE_ M I C R O B I O L O G Y R E P O R T FINAL Antimicrobial Susceptibility and Organism Identification Report Specimen Number : [id number] Requested : 06/06/17 Specimen Source : WOUND Collected : 06/06/17 20:48 [place] of Is[place] : Emergency Room Received : 06/06/17 20:48 Requesting Physician : KRISHNA HERZOG Patient/Specimen Tests and Comments Specimen Comments FINAL REPORT: ABUNDANT GROWTH GRAM POSITIVE COCCI right leg Organisms Identified -------- * 01 Staphylococcus aureus 06/09/17 Comments abundant growth Tech : Source : WOUND ID # : [id number] FINAL Report Date : / / : Collected : 06/06/17 20:48 Continued on Next Page M I C R O B I O L O G Y R E P O R T FINAL Antimicrobial Susceptibility and Organism Identification Report Isolate 01 Staphylococcus aureus Staphylococcus aureus DRUG PETER Sys. Urine --- ----- ----- Amp/Sulbactam <=8/4 S Ampicillin >8 GINA Amox/K Clav <=4/2 S Clindamycin <=0.5 S Cefoxitin Screen <=4 NEG Ciprofloxacin <=1 S Daptomycin <=0.5 S Erythromycin <=0.5 S Nitrofurantoin <=32 Gentamicin <=4 S Levofloxacin <=1 S Linezolid 2 S Moxifloxacin <=0.5 S Oxacillin <=0.25 S Penicillin >8 GINA Rifampin <=1 S Synercid <=0.5 S Trimeth/Sulfa <=0.5/9.5 S Tetracycline <=4 S Vancomycin 1 S B-Lactamase Positive +, ++, +++, or S = Susceptible N/R = Not Reported Gina = Beta Lactamase Positive I = Intermediate CC = Cost Code TFG = Thymidine-dependent Strain R = Resistant PETER = mcg/ml (mg/L) Blank = Data not available, or drug not advisable or tested For Blood and CSF Isolates, a Beta-Lactamase test is recommended for Enterococus species. IB appears in place of S, I (S), +, ++, or +++ with species known to possess inducible B-lactamases; potentially they may become resistant to all B-lactam drugs. Monitoring of patients during/after therapy is recommended. Avoid other/combined B-lactam drugs. (a) Use maximum doses of drug with an aminoglycoside for P. aeruginosa in patients with granulocytopenia or serious infections. (b) Breakpoints based on parenteral dose. For cefuroxime Axetil (PO) use <8=S, 8-16=I, >16=R. (c) For non-enterococcal streptococci, Micrococcus species, and Listeria species, refer to the Ampicillin interpretation. * Interpretations based on approx. adult attainable systemic/urine levels, except drugs with <3 dilutions, which print NCCLS. Doses are guidelines; consider weight and renal/hepatic function. Urine interpretation for lower UTI only. Interpretations based on NCCLS M7-A2. Ticar/K Clav'ate for gram positives based on pharmaceutical sales's breakpoints. Tech : Source : WOUND ID # : [id number] FINAL Report Date : / / : Collected : 06/06/17 20:48 06/09/17.0730.BKO. 06/08/17.0958.BKO. 06/09/17.31.BKO.COMPLETE Performed By: #### [id number] #### [facility],[address] [place] [address] Observed: 06/06/2017 Status: F Source: [facility] CULTURE BLOOD 7:50 PM [facility] REPOSITORY CULTURE BLOOD _BLOOD CULTURE_ SET: 2 of 2 24HOUR REPORT NO GROWTH 48HOUR REPORT NO GROWTH 72HOUR REPORT NO GROWTH GRAM STAIN: N/A M I C R O B I O L O G Y R E P O R T FINAL Antimicrobial Susceptibility and Organism Identification Report Specimen Number : [id number] Requested : 06/06/17 Specimen Source : BLOOD Collected : 06/06/17 19:50 [place] of Isolation : Emergency Room Received : 06/06/17 19:50 Requesting Physician : KRISHNA HERZOG Patient/Specimen Tests and Comments Specimen Comments FINAL REPORT: No Growth at 5 Days Tech : Source : BLOOD ID # : [id number] FINAL Report Date : / / : Collected : 06/06/17 19:50 06/12/17.39.JLN. 06/12/17.39.JLN.COMPLETE Performed By: #### [id number] #### [place] [address] CHEST 2 VIEWS Observed: 06/06/2017 Status: F Source: [facility] 7:22 PM [place] [address] Patient: ARLETTE GUALLPA Phone#: : [phone] Age: 82 Gender: F Pt. Type: ER Account: [id number] Location: 052 Ordering: THUAN CHOI Exam Date: 06/06/2017/19:13 Family Phys: DANNY CHOI Charge Code: 033357 Physician: Harmon Order #: [id number] DLP Dose#: PROCEDURE: X-RAY CHEST 2 VIEWS COMPARISON: [facility], XR, CHEST PA/LAT, 02/27/2015, 15:38. INDICATIONS: Chest pain FINDINGS: LUNGS: Chronic interstitial changes are present. No significant pulmonary parenchymal abnormalities. VASCULATURE: Normal. Unremarkable pulmonary vasculature. CARDIAC: Normal. No cardiac silhouette abnormality or cardiomegaly. MEDIASTINUM: Atherosclerotic aorta with no visible aneurysm. PLEURA: Normal. No effusion or pleural thickening. BONES: Normal. No fracture or visible bony lesion. OTHER: Negative. CONCLUSION: No acute disease. No significant change has occurred. Dictated by: Francoise Gale MD on 06/07/2017 at 18:08 Approved by: Francoise Gale MD on 06/07/2017 at 18:08 CBC Collected: 06/06/2017 Status: F Source: [facility] 7:15 PM [facility] REPOSITORY TYPE CODE TESTS RESULT OUT OF RANGE REFERENCE UNITS LAB CBC(LOINC) CBC Result Comment: CBC-COMPLETE BLOOD COUNT LAB WBC(LOINC) 4.5 - 10.8 x 10EE3/UL WBC 8.7 LAB RBC(LOINC) 4.10 - x 10EE6/UL 5.30 RBC Low 3.86 LAB HEMOGLOBIN(LOINC 12.0 - g/dl ) 16.0 Low HEMOGLOBIN 11.3 LAB HEMATOCRIT(LOINC 34.0 - % ) 46.0 HEMATOCRIT 34.3 LAB MCV(LOINC) 80 - 99 fl MCV 89 LAB MCH(LOINC) 27 - 33 pg MCH 29 LAB MCHC(LOINC) 32 - 36 X10 3 MCHC 33 LAB RDW/CV(LOINC) 12.0 - % 15.6 RDW/CV High 16.2 LAB PLATELET(LOINC) 150 - 450 x10EE3/UL PLATELET 314 LAB MPV(LOINC) 6.6 - 10.5 fl MPV 7.9 Result Comment: AUTOMATED DIFFERENTIAL LAB NEUT %(LOINC) 46.0 - 76.0 % NEUT % 73.4 LAB LYMPH %(LOINC) 20.0 - 45.0 % Low LYMPH % 14.8 LAB MONOS %(LOINC) 0.0 - 10.0 % MONOS % High 10.4 LAB EO %(LOINC) 0.0 - 7.0 % EO % 0.5 LAB BASO %(LOINC) 0.0 - 2.0 % BASO % 0.9 LAB Lymph #(LOINC) 0.80 - 2.80 x10EE3/U L Lymph # 1.30 LAB Neut #(LOINC) 1.50 - 7.10 x10EE3/U L Neut # 6.40 LAB Cowley #(LOINC) 0.20 - 1.00 x10EE3/U L Cowley # 0.90 LAB EO #(LOINC) 0.00 - 0.50 x10EE3/U L EO # 0.00 LAB Baso #(LOINC) 0.00 - 0.10 x10EE3/U L Baso # 0.10 LAB MANUAL DIFF(INC) MANUAL DIFF N/A LAB MORPHOLOGY([facility] ) MORPHOLOGY N/A Result Comment: {CD] Performed By: #### [id number] #### [facility],[address] [place] [address] CMP WITH EGFR Collected: 06/06/2017 Status: F Source: [facility] 7:15 PM [facility] REPOSITORY TYPE CODE TESTS RESULT OUT OF RANGE REFERENCE UNITS LAB CMP with eGFR(INC) CMP with eGFR Result Comment: COMPREHENSIVE METABOLIC PANEL LAB SODIUM(LOINC) 136 - 145 mmol/l SODIUM 140 LAB POTASSIUM(LOINC) 3.5 - 5.1 mmol/L POTASSIUM 4.6 LAB CHLORIDE(LOINC) 98 - 107 mmol/L CHLORIDE 105 LAB CO2(LOINC) 21.0 - mmol/L 31.0 CO2 24.1 LAB GLUCOSE(LOINC) 74 - 106 mg/dl GLUCOSE 102 LAB BUN(LOINC) 6 - 20 mg/dl BUN High 39 LAB CREATININE(INC) 0.6 - 1.2 mg/dl CREATININE 1.2 LAB AST/SGOT(LOINC) 13 - 39 U/L AST/SGOT 17 LAB ALK PHOS(LOINC) 38 - 126 U/L ALK PHOS 58 LAB CALCIUM(LOINC) 8.6 - mg/dl 10.2 CALCIUM 9.2 LAB TOTAL 6.4 - 8.3 g/dl PROTEIN(LOINC) TOTAL PROTEIN 7.3 LAB ALBUMIN(LOINC) 3.4 - 4.8 g/dL ALBUMIN 3.7 LAB GLOBULIN(LOINC) 1.5 - 3.8 G/DL GLOBULIN 3.6 LAB A/G RATIO(LOINC) 0.9 - 1.6 A/G RATIO 1.0 LAB TOTAL BILI(LOINC) 0.0 - 1.5 mg/dl TOTAL BILI 0.3 LAB B/C RATIO(LOINC) 0 - 30 ratio B/C High RATIO 33 LAB ALT/SGPT(LOINC) 8 - 35 U/L ALT/SGPT 16 LAB ANION GAP(LOINC) 10 - 20 mmol/L ANION GAP 16 LAB AGE(LOINC) years AGE 82 LAB eGFR(LOINC) 60 - 999 ML/MINUTE eGFR Low 43 LAB eGFR(AA)(LOINC) 60 - 999 ML/MINUTE eGFR(AA) Low 52 Result Comment: ACCORDING TO THE NATIONAL KIDNEY DISEASE EDUCATION PROGRAM(NKDE), A NORMAL eGFR IS A VALUE GREATER THAN OR EQUAL TO 60 ML/MIN/1.73 SQ METERS. CHRONIC KIDNEY DISEASE: <60mL/MIN/1.73 SQ METERS KIDNEY FAILURE: <15mL/MIN/1.73 SQ METERS THIS TEST SHOULD ONLY BE USED FOR PATIENTS 18 YEARS OF AGE AND OLDER. Performed By: #### [id number] #### [place] [address] CPK Collected: 06/06/2017 Status: F Source: [facility] 7:15 PM [facility] REPOSITORY TYPE CODE TESTS RESULT OUT OF RANGE REFERENCE UNITS LAB CPK(LOINC) 26 - 140 U/L High CPK 204 Performed By: #### [id number] #### [place] [address] TROPONIN Collected: 06/06/2017 Status: F Source: [facility] 7:15 PM [facility] REPOSITORY TYPE CODE TESTS RESULT OUT OF REFERENCE UNITS RANGE LAB TROPONIN 0.00 - 0.05 ng/ml I(LOINC) TROPONIN I <0.01 Result Comment: Elevated troponin (above the 99th percentile) usually indicates myocardial ischemia. Results must be interpreted within the clinical setting. 1.Non-ischemic pathology can also cause elevated troponin levels (e.g., acute pulmonary embolism, myocarditis, pericarditis, heart failure, intracranial injury, rhabdomyolisis, sepsis, shock and renal insufficiency). 2.Approximately 1% of healthy adults have elevated troponin levels. 3.Analytical false positive results rarely occur(due to multiple interferences such as heterophile antibodies). Performed By: #### [id number] #### [facility],[address] [place] [address] BNP (B-TYPE NATRIURETIC Collected: 06/06/2017 Status: F Source: [facility] PEPTIDE) 7:15 PM [facility] REPOSITORY TYPE CODE TESTS RESULT OUT OF RANGE REFERENCE UNITS LAB BNP(LOINC) 1 - 100 pg/ml BNP 66 Performed By: #### [id number] #### [place] [address] Observed: 06/06/2017 Status: F Source: [facility] CULTURE BLOOD 7:15 PM [facility] REPOSITORY CULTURE BLOOD _BLOOD CULTURE_ SET: 1 of 2 24HOUR REPORT NO GROWTH 48HOUR REPORT NO GROWTH 72HOUR REPORT NO GROWTH GRAM STAIN: N/A M I C R O B I O L O G Y R E P O R T FINAL Antimicrobial Susceptibility and Organism Identification Report Specimen Number : [id number] Requested : 06/06/17 Specimen Source : BLOOD Collected : 06/06/17 19:15 [place] of Is[place] : Emergency Room Received : 06/06/17 19:15 Requesting Physician : KRISHNA HERZOG Patient/Specimen Tests and Comments Specimen Comments FINAL REPORT: No Growth at 5 Days Tech : Source : BLOOD ID # : [id number] FINAL Report Date : / / : Collected : 06/06/17 19:15 06/12/17.39.JLN. 06/12/17.JLN.COMPLETE Performed By: #### [id number] #### [facility],[address] [place] [address] ALLERGIES ALLERGIES DATE TYPE / CODE NAME / CODE REACTION SEVERITY SOURCE 07/14/2017 Drug lisinopril/F006 Other Unknown [place] Allergy/106177652(S 765584(RXNORM) Community NOMED CT) Hospital Repository Drug LISINOPRIL/0000 Moderate [facility] Allergy/918192036(S 0945(RXNORM) (Severity [facility] NOMED CT) Modifier) Hospital (Qualifier Repository Value) Miscellaneous No Known Drug Moderate [facility] Allergy/[id number](S Allergies (Severity [facility] NOMED CT) Modifier) Hospital (Qualifier Repository Value) ENCOUNTERS ENCOUNTERS ADMIT/DISCHARGE ACCOUNT NUMBER ADMITTING ENCOUNTER LOCATION SOURCE CLASS 04/15/2018 [id number] DANNY CHOI MD Ambulatory [facility] Repository 04/14/2018/04/18/19 [id number] wKans, Inpatient [facility] 19 Mac F [facility] ding:PCURoom Repository : [id number]: 1 04/14/2018 [id number] Randytsonis, Ambulatory BMSBuilding: [place] Mac F BMS.[facility] Repository 04/14/2018 [id number] Kotsonis, Ambulatory BMSBuilding: [place] Mac F BMS.[facility] Repository 04/14/2018 [id number] Kotsonis, Ambulatory BMSBuilding: [place] Mac F BMS.[facility] Repository 04/14/2018 [id number] Kotsonis, Ambulatory BMSBuilding: [place] Mac F BMS.[facility] Repository 04/14/2018 [id number] Kotsonis, Ambulatory BMSBuilding: [place] Mac F BMS.[facility] Repository 04/14/2018/04/14/19 [id number] VAN, Emergency Buildin[address] [place] [address] DR AMOS Osorio Room: ERBed: [facility] Repository 04/13/2018/04/17/19 [id number] Ambulatory ABuilding:AMIRA Copeland [address] [place] [address] Repository 04/02/2018 [id number] Ambulatory [facility] ding:CT Repository 02/16/2018/02/21/20 [id number] Ambulatory ABuilding:LEANNE Copeland [address] [place] [address] Repository 01/01/2018/01/02/20 [id number] DANNY CHOI MD Ambulatory [address] Repository 11/20/2017/11/25/19 [id number] Ambulatory [address] BBuilding:[facility] Repository 10/27/2017 [id number] FRANCIS, Ambulatory [facility] Repository 10/25/2017/10/30/19 [id number] Ambulatory [address] BBuilding:BE [facility] Repository 10/11/2017/10/16/19 [id number] Ambulatory [address] BBuilding:[facility] Repository 08/06/2017 [id number] Ambulatory [facility] ding:POLAB3 Repository 07/29/2017/07/30/19 [id number] FRANCIS, Ambulatory [address] Repository 07/21/2017/07/22/19 [id number] FRANCIS, Ambulatory [address] Repository 07/17/2017/07/23/19 [id number] CHANCE, Inpatient Buildin[address] [place] [address] SERGIO SINCLAIR Encounter Room: [address] [place] [address] Repository 07/16/2017/07/17/19 [id number] Ambulatory [address] ding:SDCRoom Repository : AC-TBA 07/14/2017/07/15/19 [id number] FRANCIS, Ambulatory [address] Repository 07/08/2017/07/09/19 [id number] FRANCIS, Ambulatory [address] Repository 07/04/2017/07/05/19 [id number] Emergency [address] ding:ED Repository 07/03/2017/07/04/19 [id number] Emergency [address] ding:ED Repository 07/02/2017 [id number] Ambulatory [facility] ding:POLAB3 Repository 06/20/2017/06/28/19 [id number] White, Inpatient [place] [facility] ding:PCURoom Repository : [id number]: 1 06/20/2017 [id number] White, Ambulatory BMSBuilding: [place] Patricia BMS.[facility] Repository 06/20/2017 [id number] White, Ambulatory BMSBuilding: [place] Patricia BMS.[facility] Repository 06/20/2017 [id number] White, Ambulatory BMSBuilding: [place] Patricia BMS.[facility] Repository 06/20/2017 [id number] White, Ambulatory BMSBuilding: [place] Patricia BMS.[facility] Repository 06/20/2017 [id number] White, Ambulatory BMSBuilding: [place] Patricia BMS.[facility] Repository 06/20/2017 [id number] White, Ambulatory BMSBuilding: [place] Patricia BMS.[facility] Repository 06/20/2017 [id number] White, Ambulatory BMSBuilding: [place] Patricia BMS.[facility] Repository 06/20/2017 [id number] White, Ambulatory BMSBuilding: [place] Patricia BMS.[facility] Repository 06/20/2017/06/28/19 [id number] Ambulatory BMSBuilding: [place] [facility] Repository 06/20/2017/06/21/19 [id number] VIDYA, Emergency [facility]in [facility] Room: ERBed: [facility] Repository 06/06/2017/06/12/19 [id number] ANJEL, Inpatient [address]in[address] [place] [address] GALLO SINCLAIR Encounter Room: [address] [place] [address] PAYERS PAYERS ENCOUNTER GUARANTOR PAYER SUBSCRIBER SOURCE 04/15/2018 ARLETTE William Primary Insurance:[facility] ARLETTE Nataliia Jarrod Mcfarlane KASERDOB: [facility]ICARE [facility] [id number] [facility] [id number] Number: [id number] Date:Plan Name: [id number]: () 04/14/2018 ARLETTE Nataliia Primary ARLETTE F Blank [id number] TR Insurance[facility] [address], PART A BPolicy Number: [id number] [facility] [address]Mkd: [id number] Repository Date:2018-04-14 (HP) 04/14/2018 Secondary NOT GIVENUNK [place] Insurance:SELF PAY [facility] Number: Effective Repository Date:2018-04-14 04/14/2018 ARLETTE William Primary ARLETTE [id number] TR Insurance:MEDICARE KASERDOB: Community [address] [place] [address], PART A BPolicy Number: [id number] [address]Lck: [id number] Repository Date:2018-04-14 () 04/14/2018 Secondary NOT GIVENUNK [place] Insurance:SELF PAY [facility] Number: Effective Repository Date:2018-04-14 04/14/2018 ARLETTE William Primary ARLETTE Parson [id number] TR Insurance:MEDICARE KASERDOB: Community [address], PART A BPolicy Number: [id number] Medical Center [address]Lit: [id number] Repository Date:2018-04-14 () 04/14/2018 Secondary NOT GIVENUNK [place] Insurance:SELF PAY [facility] Number: Effective Repository Date:2018-04-14 04/14/2018 ARLETTE William Primary ARLETTE Parson [id number] TR Insurance:MEDICARE KASERDOB: Community [address] [place] [address], PART A BPolicy Number: [id number] Medical Center [address]Aph: [id number] Repository Date:2018-04-14 () 04/14/2018 Secondary NOT GIVENUNK [place] Insurance:SELF PAY [facility] Number: Effective Repository Date:2018-04-14 04/14/2018 ARLETTE William Primary ARLETTE Parson [id number] TR Insurance:MEDICARE KASERDOB: Community [address] [place] [address], PART A BPolicy Number: [id number] Medical [facility] [address]Sym: [id number] Repository Date:2018-04-14 () 04/14/2018 Secondary NOT GIVENUNK [place] Insurance:SELF PAY [facility] Number: Effective Repository Date:2018-04-14 04/14/2018 ARLETTE William Primary ARLETTE Parson [id number] TR Insurance:MEDICARE KASERDOB: [address], PART A BPolicy Number: [id number] Medical Center [address]Pfg: [id number] Repository Date:2018-04-14 () 04/14/2018 Secondary NOT GIVENUNK Blank Insurance:SELF PAY [facility] Number: Effective Repository Date:2018-04-14 04/14/2018 ARLETTE William Primary Insurance:500 ARLETTE Mcfarlane KASERDOB: MEDICARE KASERDOB: [facility] [id number] [facility] [id number] [facility] [address] Number: [address], [id number] [address] [place] [address] Date:Plan Name: [id number]: () 04/13/2018 ARLETTE William Primary [facility]LETTE William [facility] Insurance:MEDICARE KASERDOB: [facility] PART B INSCOPolicy [id number] Repository TR Number: [address], [id number] [address] [place] [address]Eny: Date:2018-04-13 [place] [address]Fps: [id number] ()Tel: (000) Name:HOLLIE () () Administrators LLCPO 000-0000 () [address] [place] [address] 51612WO: 04/02/2018 ARLETTE William Primary ARLETTE Parson [id number] TR Insurance:MEDICARE KASERDOB: [address], PART A BPolicy Number: [id number] [facility] [address]32Ljj: [id number] Repository Date:2018-04-02 () 04/02/2018 Secondary NOT GIVENUNK [place] Insurance:SELF PAY [facility]: Effective Repository Date:2018-04-02 02/16/2018 ARLETTE William Primary ARLETTE William [facility]: Insurance:[facility]ICARE [facility] [id number] PART B INSCOPolicy [id number] Repository TR Number: [address] [place] [address], [id number] [address] [place] [address] 47243Hli: Date:2018-02-16 - [place] [address]Tqz: [id number] (HP)Tel: (000) Name:[facility] () (WP) Administrators LLCPO 000-0000 (WP) [address] [place] [address] 78815KV: 01/01/2018 ARLETTE William Primary Insurance:500 ARLETTE [facility]Sky [facility] CenterB: MEDICARE KASERDOB: [facility] [id number] [facility] [id number] [facility] [address] Number: [address] Repository [address] [place] [address], [id number] [address] [place] [address] Date:Plan Name:[facility] [id number]: (HP) 11/20/2017 ARLETTE William Primary ARLETTE William [facility]: Insurance:MEDICARE [facility]: [facility] [id number] PART BPolicy Number: [id number] Repository TR [id number] [address] [place] [address], Date:2017-11-20 - [address] [place] [address] 68539Vjm: [id number] [place] [address]Oig: Name:[facility] (HP)Tel: (000) Administrators LLCPO (HP) (WP) [address] [place] [address] 000-0000 () 208[address]MI: 10/27/2017 ARLETTE William Primary Insurance:[address] [facility]: [facility] KASERDOB: [facility] [id number] [facility] [address] Number: 0 [facility] Repository [address] [place] [address], [id number] [address] [place] [address] Date:Plan Name: [id number]: () 10/25/2017 ARLETTE William Primary ARLETTE [facility]: Insurance:MEDICARE [facility]: [facility] PART BPolicy Number: [id number] Repository TR [id number] [address], Date:2017-10-25 - [address] [place] [address] 48980Vkp: [id number] [place] [address]Vlk: Name:[facility] ()Tel: (000) Administrators LLCPO (HP) (WP) [address] [address]Yn[place]ho[place], [place] 000-0000 (WP) 460[address]MF: 10/11/2017 ARLETTE William Primary ARLETTE William [facility]: Insurance:MEDICARE [facility]: [facility] PART BPolicy Number: [id number] Repository TR [id number] [address], Date:2017-10-11 - [address] [place] [address] 86384Sdj: [id number] [place] [address]Nbr: Name:[facility] (HP)Tel: (000) Administrators LLCPO (HP) (WP) [address] [address]Fwrmrsgmw, [place] 000-0000 (WP) 449[address]XG: 08/06/2017 ARLETTE William Primary ARLETTE William Blank [id number] TR Insurance:MEDICARE KASERDOB: [address], PART A BPolicy Number: [id number] Medical Center [address]Kac: [id number] Repository Date:2017-08-06 () 08/06/2017 Secondary NOT GIVENUNK [place] Insurance:SELF PAY [facility] Number: Effective Repository Date:2017-08-06 07/29/2017 ARLETTE Willima Primary Insurance:500 ARLETTE Mcfarlane [facility]: MEDICARE KASERDOB: [facility] [id number] [place] [address] [id number] [address] Number: 0 [facility] Repository [address] [place] [address], [id number] [address] [place] [address] [place] Date:Plan Name: [id number]: () 07/21/2017 ARLETTE William Primary Insurance:500 ARLETTE Mcfarlane [facility]: MEDICARE KASERDOB: [facility] [id number] [place] [address] [id number] Number: [address] [id number] [address] [place] [address] Oh Date:Plan Name: [id number]: () 07/17/2017 ARLETTE William Primary ARLETTE Mcfarlane KASERDOB: Insurance:MEDICARE KASERDOB: [facility] [id number] [place] [address] [id number] [address] Number: [address] [id number] [address] [place] [address] [place] Date:Plan Name: [id number]: () 07/16/2017 ARLETTE William Primary ARLETTE Parson [id number] TR Insurance:MEDICARE KASERDOB: [address], PART A BPolicy Number: [id number] Medical Center 47[address]Vxl: [id number] Repository Date:2017-07-08 () 07/16/2017 Secondary NOT GIVENUNK [place] Insurance:SELF PAY [facility] Number: Effective Repository Date:2017-07-08 07/14/2017 ARLETTE William Primary Insurance:500 ARLETTE Mcfarlane KASERDOB: MEDICARE KASERDOB: [facility] [id number] [facility] [id number] [facility] [address] Number: [address] Repository [address] [place] [address], [id number] [address] [place] [address] Date:Plan Name:[facility] [id number]: () 07/08/2017 ARLETTE William Primary Insurance:500 ARLETTE Mcfarlane [facility]: MEDICARE KASERDOB: [facility] [id number] [facility] [id number] [facility] [address] Number: [address] [facility] [address] Repository [address] [place] [address], [id number] [address] [place] [address] Date:Plan Name: [id number]: () 07/04/2017 ARLETTE William Primary ARLETTE Parson [id number] TR Insurance:MEDICARE KASERDOB: [address], PART A BPolicy Number: [id number] Medical Center 53304Sbg: [id number] Repository Date:2017-07-04 () 07/04/2017 Secondary NOT GIVENUNK [place] Insurance:SELF PAY [facility] Number: Effective Repository Date:2017-07-04 07/03/2017 ARLETTE William Primary ARLETTE Parson [id number] TR Insurance:MEDICARE KASERDOB: [address], PART A BPolicy Number: [id number] Medical Center 78[address]Tle: [id number] Repository Date:2017-07-03 () 07/03/2017 Secondary NOT GIVENUNK [place] Insurance:SELF PAY [facility] Number: Effective Repository Date:2017-07-03 07/02/2017 ARLETTE William Primary ARLETTE Parson [id number] TR Insurance:MEDICARE KASERDOB: [address], PART A BPolicy Number: [id number] Medical Center 26183Ybs: [id number] Repository Date:2017-07-02 () 07/02/2017 Secondary NOT GIVENUNK [place] Insurance:SELF PAY [facility] Number: Effective Repository Date:2017-07-02 06/20/2017 ARLETTE William Primary ARLETTE [id number] TR Insurance:MEDICARE KASERDOB: Community [address] [place] [address], PART A BPolicy Number: [id number] Medical Center 04040Ydj: [id number] Repository Date:2017-06-20 () 06/20/2017 Secondary NOT GIVENUNK [place] Insurance:SELF PAY [facility] Number: Effective Repository Date:2017-06-20 06/20/2017 ALRETTE William Primary ARLETTE Parson [id number] TR Insurance:MEDICARE KASERDOB: [address], PART A BPolicy Number: [id number] Medical Center [address]0938Vlc: [id number] Repository Date:2017-06-20 () 06/20/2017 Secondary NOT GIVENUNK [place] Insurance:SELF PAY [facility] Number: Effective Repository Date:2017-06-20 06/20/2017 ARLETTE William Primary ARLETTE Parson [id number] TR Insurance:MEDICARE KASERDOB: [address], PART A BPolicy Number: [id number] Medical Center 43546Dzv: [id number] Repository Date:2017-06-20 () 06/20/2017 Secondary NOT GIVENUNK [place] Insurance:SELF PAY [facility] Number: Effective Repository Date:2017-06-20 06/20/2017 ARLETTE William Primary ARLETTE Parson [id number] TR Insurance:MEDICARE KASERDOB: [address], PART A BPolicy Number: [id number] Medical Center 517[address]Ahp: [id number] Repository Date:2017-06-20 () 06/20/2017 Secondary NOT GIVENUNK [place] Insurance:SELF PAY [facility] Number: Effective Repository Date:2017-06-20 06/20/2017 ARLETTE William Primary ARLETTE Parson [id number] TR Insurance:MEDICARE KASERDOB: Community [address] [place] [address], PART A BPolicy Number: [id number] Medical Center 18027Liu: [id number] Repository Date:2017-06-20 () 06/20/2017 Secondary NOT GIVENUNK [place] Insurance:SELF PAY [facility] Number: Effective Repository Date:2017-06-20 06/20/2017 ARLETTE William Primary ARLETTE Parson [id number] TR Insurance:MEDICARE KASERDOB: Community [address] [place] [address], PART A BPolicy Number: [id number] Medical Center 62484Mcc: [id number] Repository Date:2017-06-20 () 06/20/2017 Secondary NOT GIVENUNK [place] Insurance:SELF PAY [facility] Number: Effective Repository Date:2017-06-20 06/20/2017 ARLETTE William Primary ARLETTE Parson [id number] TR Insurance:MEDICARE KASERDOB: Community [address] [place] [address], PART A BPolicy Number: [id number] Medical Center 88862Ykd: [id number] Repository Date:2017-06-20 (HP) 06/20/2017 Secondary NOT GIVENUNK [place] Insurance:SELF PAY [facility] Number: Effective Repository Date:2017-06-20 06/20/2017 ARLETTE William Primary ARLETTE Parson [id number] TR Insurance:MEDICARE KASERDOB: Community [address] [place] [address], PART A BPolicy Number: [id number] Medical Center 37420Dpm: [id number] Repository Date:2017-06-20 () 06/20/2017 Secondary NOT GIVENUNK [place] Insurance:SELF PAY [facility] Number: Effective Repository Date:2017-06-20 06/20/2017 ARLETTE William Primary ARLETTE Parson [id number] TR Insurance:MEDICARE KASERDOB: [address], PART A BPolicy Number: [id number] Medical Center 91067Vjq: [id number] Repository Date:2017-06-20 (HP) 06/20/2017 Secondary NOT GIVENUNK [place] Insurance:SELF PAY [facility] Number: Effective Repository Date:2017-06-20 06/20/2017 ARLETTE William Primary ARLETTE Parson [id number] TR Insurance:MEDICARE KASERDOB: [address], PART A BPolicy Number: [id number] Medical Center 14584Lcc: [id number] Repository Date:2017-06-20 (HP) 06/20/2017 Secondary NOT GIVENUNK [place] Insurance:SELF PAY [facility] Number: Effective Repository Date:2017-06-20 06/20/2017 ARLETTE William Primary Insurance:500 ARLETTE Mcfarlane KASERDOB: MEDICARE KASERDOB: [facility] [id number] [facility] [id number] Number: [address] [facility] [address] [id number] [place] Date:Plan Name: [id number]: () 06/06/2017 ARLETTE William Primary ARLETTE Mcfarlane KASERDOB: Insurance:MEDICARE KASERDOB: [facility] [id number] IN[facility]IENTGe[facility] [id number] Number: [address] Repository [address] [place] [id number] [place] Date:Plan Name: [id number]: ()
== END 2018-04-18 14:25 | disposition skilled nursing facility (03) | DRG 683 ==
PROVIDERS: Internal Medicine; Internal Medicine Nephrology; Admitting Provider Hospitalist; Referring Provider Family Medicine; Visit Provider Internal Medicine
DX: N17.0 Acute kidney failure with tubular necrosis (principal); E87.2 Acidosis; N39.0 Urinary tract infection, site not specified; E87.5 Hyperkalemia; N20.0 Calculus of kidney; I45.10 Unspecified right bundle-branch block; D50.9 Iron deficiency anemia, unspecified; E78.5 Hyperlipidemia, unspecified; E03.9 Hypothyroidism, unspecified; E11.9 Type 2 diabetes mellitus without complications; I48.2 Chronic atrial fibrillation; I12.9 Hypertensive chronic kidney disease with stage 1 through stage 4 chronic kidney disease, or unspecified chronic kidney disease; N18.4 Chronic kidney disease, stage 4 (severe); B96.1 Klebsiella pneumoniae [K. pneumoniae] as the cause of diseases classified elsewhere; E66.01 Morbid (severe) obesity due to excess calories; I87.2 Venous insufficiency (chronic) (peripheral); E86.0 Dehydration; I95.9 Hypotension, unspecified; E87.6 Hypokalemia; L89.322 Pressure ulcer of left buttock, stage 2; Z87.442 Personal history of urinary calculi; Z68.35 Body mass index [BMI] 35.0-35.9, adult; Z79.01 Long term (current) use of anticoagulants; B37.9 Candidiasis, unspecified
CPT/HCPCS: 36415; 36600; 71045; 74176; 80048; 80053; 80069; 81001; 82570; 82803; 82962; 83605; 84100; 84133; 84156; 84300; 85025; 85027; 85610; 87070; 87077; 87086; 87088; 87186; 87205; 93005; 93306; 97110; 97162; 97166; 97530; 97535; 97802; J2185; J7030; Q9957; A4216; C8929; J2405

== ENCOUNTER → 2018-08-10 17:11 | Outpatient (CLI) | payer MEDICARE, SELFPAY ==
[2018-08-10 17:28] LABS: Mucous, Urine 0 SEEN /hpf (<or=2+)
[2018-08-10 17:56] LABS: Color, Urine Straw (Yellow); Glucose, Dipstick Normal (Normal); Ketone-Dipstick Negative (Negative); Leukocyte Esterase-Dipstick 500 /ul (Negative); Nitrite-Dipstick Negative (Negative); Occult Blood-Urine 150 /ul (Negative); Protein-Dipstick 100 mg/dl (Negative); Urine Bilirubin Dipstick Negative (Negative); Urine Clarity Cloudy (Clear); Urine Urobilinogen Normal (Normal)
[2018-08-10 18:09] LABS: Squamous Epithelial Cells - UA 10-25 SEEN /hpf (5-10)
[2018-08-10 18:10] LABS: Bacteria 1+ /hpf (None Seen); Red Blood Cells-Urine 10-25 SEEN /hpf (0-5); White Blood Cells >100 SEEN /hpf (0-5)
== END ==
PROVIDERS: Referring Provider Nurse Practitioner Adult Health; Visit Provider Nurse Practitioner Adult Health
DX: R30.0 Dysuria (principal)
CPT/HCPCS: 81001

== ENCOUNTER → 2018-09-01 14:46 | Outpatient (CLI) | payer MEDICARE, SELFPAY | PROVIDERS: Referring Provider Nurse Practitioner Adult Health; Visit Provider Nurse Practitioner Adult Health | DX: R30.0 Dysuria (principal) | CPT/HCPCS: 87077; 87086; 87088; 87186 ==

== ENCOUNTER 2021-06-19 09:30 | Outpatient (RCR) | payer MEDICARE, SELFPAY ==
[2021-06-19 09:52] VITALS: BP 166/65; PULSE 82; TEMP 35.5; BMI 36.4
--- NOTE | 2021-06-19 12:36 | PCM.WC.HP ---
History of Present Illness Date of Service: 06/19/21 Chief Complaint: Severe swelling and edema in the patient's lower extremities, associated with multiple large superficial ulcerations bilaterally. History of Wound: This is an 86-year-old female who presents with severe swelling and edema in both lower extremities, as well as multiple superficial ulcerations in her lower extremities bilaterally. She is accompanied by her son, with whom she lives. It is said that the swelling and ulcerations in the patient's legs have been present for approximately 1 year. Patient has multiple pre-existing medical problems, listed below. She recently required hospitalization, and a subsequent 1 month stay in a correction in treatment for an acute urinary tract infection, which exacerbated the swelling, edema, and ulcerations in her lower extremities. Patient's mobility is extremely limited. She ambulates in very limited fashion using a walker. She is largely wheelchair-bound. She sleeps in a recliner. She sits idly throughout the day. [facility] Medical History (Updated 06/19/21 @ 12:[address] Gagan Altman MD) Chronic kidney disease, stage IV (severe) Congestive heart failure Debility Dependent edema Diabetes mellitus Diverticulosis large intestine w/o perforation or abscess w/o bleeding Gout Hiatal hernia Hypothyroidism Immobility Leg edema Leg swelling Obesity (BMI 30-39.9) Parkinsons disease Valvular heart disease Venous hypertension, chronic, with ulcer Venous stasis ulcer Home Medications Centrum Silver 1 ea PO DAILY 06/20/17 [History Last Taken 04/14/18] atorvastatin 10 mg PO DAILY 06/20/17 [History Last Taken 04/14/18] ferrous sulfate 325 mg PO BID 06/20/17 [History Last Taken 04/14/18] levothyroxine 137 mcg PO DAILY 06/20/17 [History Last Taken 04/14/18] omeprazole 20 mg PO DAILY 06/20/17 [History Last Taken 04/14/18] allopurinol 100 mg PO QHS 04/15/18 [History Last Taken 04/14/18] metoprolol tartrate 25 mg PO BID 04/15/18 [History Last Taken 04/14/18] acetaminophen 1,000 mg PO TID tablet 04/18/18 [Rx Last Taken Unknown] cefdinir 300 mg PO DAILY #3 capsule 04/18/18 [Rx Last Taken Unknown] insulin lispro [Humalog KwikPen Insulin] See Protocol SUBCUT ACHS insuln.pen 04/18/18 [Rx Last Taken Unknown] menthol-zinc oxide [Calmoseptine] 1 applic TOPICAL BID tube 04/18/18 [Rx Last Taken Unknown] nystatin 1 applic TOPICAL TID tube 04/18/18 [Rx Last Taken Unknown] Lactobacillus acidoph-L. bifid cap PO 06/19/21 [History Last Taken Unknown] amlodipine 2.5 06/19/21 [History Last Taken Unknown] famotidine 20 mg PO DAILY 06/19/21 [History Last Taken Unknown] insulin glargine [Lantus Solostar U-100 Insulin] 20 unit SUBCUT BID 06/19/21 [History Last Taken Unknown] Allergy/AdvReac Type Severity Reaction Status Date / Time lisinopril AdvReac Other Verified 07/14/17 13:17 Social History Smoking Status: Never smoker Vital Signs Vital Signs Vital Signs: 06/19/21 09:52 Temperature 95.9 F L Temperature Source Temporal Pulse Rate 82 Blood Pressure 166/65 H Blood Pressure Mean 98 Blood Pressure Source Monitor Weight Weight: 193 lb Body Mass Index (BMI) 36.4 Physical Exam Const alert, oriented x3 and no apparent distress Constitutional Narrative: The patient is obese. She appears weak, frail, and debilitated. General Appearance: cooperative, comfortable and disheveled Orientation / Consciousness: awake, oriented to person, oriented to place and oriented to time HEENT normocephalic and head/scalp atraumatic Head and Scalp: normal to inspection, normocephalic and atraumatic External Ear: external ears normal Eyes PERRL and EOMs intact bilaterally General Eye: normal appearance of both eyes Resp normal respiratory effort, normal air movement, no retractions and no use of accessory muscles Effort and Inspection: able to speak in complete sentences Extremity no calf tenderness Extremity Narrative: Severe swelling and edema are noted in the patient's lower extremities bilaterally. General Extremity: Negative for clubbing or cyanosis Skin Wound Narrative: Large superficial ulcerations are noted bilaterally in the lower extremities. Dimensions and locations are documented elsewhere. There are superficial in nature. There is no sign of infection or cellulitis. There does appear to be an inflammatory erythema. There is also a superficial ulceration on the dorsum of the left foot, near the base of the left second toe. Neuro oriented x3 and CN's II-XII intact bilaterally Sensorium / Orientation: awake, alert and lethargic Psych Appearance: grossly normal and appropriate Attitude: calm Activity / Motor Behavior: appropriate eye contact Speech: normal speech Mood & Affect: euthymic mood Thought Process: normal thought process Thought Content: normal thought content Attention / Concentration: attention grossly intact Debridement Note Debridement Note No debridement was completed: No debridement was completed today (The patient's ulcerations are all very superficial, with no evidence of significant bioburden, nonviable tissue, or necrosis.) Post-Debridement Measurements and Additional Note: Post-Debridement Measurements/Treatment - Nurse 1 - General Ulcer Assessment Start: 06/19/21 09:52 Freq: Status: Active Protocol: JAGDISH Activity Type Activity Date Activity User E-Sign Co-Sign Detail Recorded Client Recorded Date Recorded By Document 06/19/21 09:52 MARINA [id number] 06/19/21 10:21 AK 06/19/21 09:52 - Today's Visit Information Type of service Nurse-only Visit Arrival Mode Wheelchair Transfer Assist (Other) 2 person Accompanied by son Patient Identification Verified (Name & Yes ) Patient Requires Transmission-Based No Precautions Safety Precautions NA Finger Stick Blood Sugar(mg/dl) (if 163 indicated): Height and Weight Height 5 ft 1 in Weight 193 lb Weight in Pounds 193.0 lbs Body Mass Index (BMI) 36.4 BMI Classification Obese BSA - Nhan 1.86 Vital Signs Temperature (97.8 F-99.1 F) 95.9 F L Temperature Source Temporal Pulse Rate (60-100) 82 Pulse Location Monitor Blood Pressure (90/60-120/80) 166/65 H Blood Pressure Mean 98 Source Monitor History Since Last Visit- (Skip if this is Patient's initial visit) Left Footwear Regular Shoe Right Footwear Regular Shoe Pain Scale: 0-10 Numeric Is Patient Pain Free? Yes [facility] Nurse 1 - General Ulcer Measurement Start: 06/19/21 09:52 Freq: Status: Active Protocol: Activity Type Activity Date Activity User E-Sign Co-Sign Detail Recorded Client Recorded Date Recorded By Document 06/19/21 09:52 MARINA [id number] 06/19/21 10:21 AK 06/19/21 09:52 Wound Center Nurse 1 #3 R morris -Combined with other wound No -Current Size (cm) - Length 6 -Current Size (cm) - Width 7 -Current Size (cm) - Depth 0.1 -Total Square Cm 42 -Date of Last Picture (Recall this 06/19/21 field) -Photo Taken Yes -Tunneling No -Undermining/Tunneling No -Circular Undermining No -Change in Wound Grade/Stage No -Exudate Amt Medium -Exudate Type Serosanguineous -Wound Margin Distinct, Outline Attached -Granulation Amt None Present (0 %) -Granulation Quality N/A -Slough/Fibrin Yes -Necrosis Amt Medium (34-66%) -Necrotic Tissue Type Adherent Slough -Structure Exposed N/A -Texture (Loida-wound Skin Appearance) Assessed, Excoriation -Color (Loida-wound Skin Appearance) Assessed,Rubor -Temperature (Loida-wound Skin No Abnormality Appearance) (Pt Warm) -Tenderness on Palpation (Loida-wound No Skin Appearance) -Foul Odor after Cleansing No -Anesthetic Used 4% Lidocaine Solution #2 2nd/3rd toe cluster -Combined with other wound No -Current Size (cm) - Length 4 -Current Size (cm) - Width 3.8 -Current Size (cm) - Depth 0.1 -Total Square Cm 15.2 -Date of Last Picture (Recall this 06/19/21 field) -Photo Taken Yes -Tunneling No -Undermining/Tunneling No -Circular Undermining No -Change in Wound Grade/Stage No -Exudate Amt Medium -Exudate Type Serosanguineous -Wound Margin Distinct, Outline Attached -Granulation Amt None Present (0 %) -Granulation Quality N/A -Necrosis Amt Medium (34-66%) -Necrotic Tissue Type Adherent Slough -Structure Exposed Fat Layer Exposed -Texture (Loida-wound Skin Appearance) Assessed, Friable -Moisture (Loida-wound Skin Appearance) Assessed, Weeping -Temperature (Loida-wound Skin No Abnormality Appearance) (Pt Warm) -Tenderness on Palpation (Loida-wound No Skin Appearance) -Ulcer Cleansing Soap and Water -Foul Odor after Cleansing No -Anesthetic Used 4% Lidocaine Solution #1 morris cluster -Combined with other wound No -Current Size (cm) - Length 14 -Current Size (cm) - Width 15 -Current Size (cm) - Depth 0.1 -Total Square Cm 210 -Date of Last Picture (Recall this 06/19/21 field) -Photo Taken Yes -Tunneling No -Undermining/Tunneling No -Circular Undermining No -Classification - Thickness Partial Thickness -Exudate Amt Large -Exudate Type Serosanguineous -Wound Margin Distinct, Outline Attached -Granulation Amt None Present (0 %) -Granulation Quality N/A -Slough/Fibrin Yes -Necrosis Amt Medium (34-66%) -Necrotic Tissue Type Adherent Slough -Structure Exposed N/A -Texture (Loida-wound Skin Appearance) Assessed, Excoriation -Moisture (Loida-wound Skin Appearance) Assessed, Weeping -Color (Loida-wound Skin Appearance) Assessed, Erythema -Temperature (Loida-wound Skin No Abnormality Appearance) (Pt Warm) -Tenderness on Palpation (Loida-wound No Skin Appearance) -Ulcer Cleansing Soap and Water -Foul Odor after Cleansing No -Anesthetic Used 4% Lidocaine Solution Right Calf (cm) 43.5 Right Ankle (cm) 27.8 Left Calf (cm) 41 Left Ankle (cm) 29.7 WC - Nurse 3 - General Ulcer D/C NN Start: 06/19/21 09:52 Freq: Status: Active Protocol: Activity Type Activity Date Activity User E-Sign Co-Sign Detail Recorded Client Recorded Date Recorded By Document 06/19/21 10:50 DL [id number] 06/19/21 10:52 DL 06/19/21 10:50 Wound Care Nurse 3 #3 R morris -Ulcer Cleansing Soap and Water -Foul Odor after Cleansing No -Other Dressing Unna boot #2 2nd/3rd toe cluster -Ulcer Cleansing Soap and Water -Foul Odor after Cleansing No -Other Dressing Hydrogel -Primary Dressing Covered/Secured with Dry Gauze & Roll Gauze, Secured with Tape #1 morris cluster -Ulcer Cleansing Soap and Water -Other Dressing Unna boot Left -Multi-Layered Wrap Application Unna Boot - Bilateral ($) -Unna Boots (Bilat) ($) 1 Treatment Response Procedure Tolerated Well Pain Scale: 0-10 Numeric Is Patient Pain Free? Yes WC - Visit Discharge Discharge Condition Stable Ambulatory Status Ambulatory, Walker Transportation Private Auto Accompanied by family Facility Type [facility] Care Facility Orders Sent Yes Assessment/Plan Assessment/Plan (1) Venous stasis ulcer: CODE(S): I83.009 - Varicose veins of unspecified lower extremity with ulcer of unspecified site; L97.909 - Non-pressure chronic ulcer of unspecified part of unspecified lower leg with unspecified severity (2) Venous hypertension, chronic, with ulcer: CODE(S): I87.319 - Chronic venous hypertension (idiopathic) with ulcer of unspecified lower extremity; L97.909 - Non-pressure chronic ulcer of unspecified part of unspecified lower leg with unspecified severity (3) Chronic venous stasis dermatitis: CODE(S): I87.2 - Venous insufficiency (chronic) (peripheral) (4) Chronic lymphedema: (5) Dependent edema: CODE(S): R60.9 - Edema, unspecified (6) Leg swelling: CODE(S): M79.89 - Other specified soft tissue disorders (7) Leg edema: CODE(S): R60.0 - Localized edema (8) HTN (hypertension): CODE(S): I10 - Essential (primary) hypertension (9) HLD (hyperlipidemia): CODE(S): E78.5 - Hyperlipidemia, unspecified (10) Obesity (BMI 30-39.9): CODE(S): E66.9 - Obesity, unspecified (11) Congestive heart failure: CODE(S): I50.9 - Heart failure, unspecified (12) Diabetes mellitus: CODE(S): E11.9 - Type 2 diabetes mellitus without complications (13) Diverticulosis large intestine w/o perforation or abscess w/o bleeding: CODE(S): K57.30 - Diverticulosis of large intestine without perforation or abscess without bleeding (14) Valvular heart disease: CODE(S): I38 - Endocarditis, valve unspecified (15) Parkinsons disease: CODE(S): G20 - Parkinson's disease (16) Gout: CODE(S): M10.9 - Gout, unspecified (17) Chronic kidney disease, stage IV (severe): CODE(S): N18.4 - Chronic kidney disease, stage 4 (severe) (18) Hypothyroidism: CODE(S): E03.9 - Hypothyroidism, unspecified (19) Hiatal hernia: CODE(S): K44.9 - Diaphragmatic hernia without obstruction or gangrene (20) Debility: CODE(S): R53.81 - Other malaise (21) Immobility: CODE(S): Z74.09 - Other reduced mobility PLAN: This is an 86-year-old female who presented with severe swelling and edema in her lower extremities bilaterally, associated with multiple large superficial ulcerations in her lower extremities, related to the swelling and edema, inactivity, and chronic dependency. She also has multiple pre-existing medical problems. She suffers from debility, and her mobility is extremely limited. As result of the prolonged, chronic dependency of her lower extremities, she has developed multiple large superficial ulceration related to the swelling and edema in her lower extremities. She has chronically slept in a recliner, and spends most of each day in an idle sitting position. Patient is accompanied by her son today, with whom she lives. We have had a lengthy discussion regarding the appropriate measures which are to be implemented in an effort to diminish the swelling and edema in her lower extremities. Patient has been encouraged to elevate her lower extremities to heart level, or higher, as much as possible. She is to attempt to sleep on a flat mattress, or in a position whereby her lower extremities are at heart level, or higher. She is to attempt to elevate her lower extremities as well during daytime hours. Prolonged idle sitting has been discouraged. Activity has been encouraged, though the patient's debility and pre-existing multiple medical problems likely preclude any significant enhancement of her activity level. Weight loss has also been recommended. Patient has been encouraged to optimize her nutritional intake, and to optimize her glycemic control. We are to implement compression to the lower extremities by means of Unna boots, which will be applied twice weekly. This will provide compression to the lower extremities, as well as zinc oxide appropriate to the management of the patient's superficial ulcerations. With respect to the superficial ulceration at the dorsal base of the left second toe, we are to use hydrogel topically, which will be applied on a daily basis. Patient has home health nursing care already established, and we are to collaborate with home health nursing staff to facilitate the patient's outpatient management. The patient is to return in 1 week for reassessment. Patient has had recent laboratory studies, with results as follows: Sodium 138, potassium 5.1, chloride 104, glucose 73, BUN 44, creatinine 4.25, calcium 7.9, AST 18, alkaline phosphatase 99, total protein 8.1, albumin 2.1, total bilirubin 0.3, ALT 14, white blood count 10.6, hemoglobin 9.4, hematocrit 29.4, platelets 297,000. The patient's pre-existing medical problems will be deferred to the management of her other multi specialty providers. Total time: 65 minutes
== END 2021-06-21 23:59 | disposition home or self-care (01) ==
LOC: WC 09:30
PROVIDERS: PCP Internal Medicine; Visit Provider Surgery
DX: E11.621 Type 2 diabetes mellitus with foot ulcer (principal); G20 Parkinson's disease; L97.819 Non-pressure chronic ulcer of other part of right lower leg with unspecified severity; L97.502 Non-pressure chronic ulcer of other part of unspecified foot with fat layer exposed; I13.0 Hypertensive heart and chronic kidney disease with heart failure and stage 1 through stage 4 chronic kidney disease, or unspecified chronic kidney disease; I50.9 Heart failure, unspecified; E11.22 Type 2 diabetes mellitus with diabetic chronic kidney disease; E11.59 Type 2 diabetes mellitus with other circulatory complications; N18.4 Chronic kidney disease, stage 4 (severe); Z79.4 Long term (current) use of insulin; E78.5 Hyperlipidemia, unspecified; I89.0 Lymphedema, not elsewhere classified; M10.9 Gout, unspecified; K44.9 Diaphragmatic hernia without obstruction or gangrene; E03.9 Hypothyroidism, unspecified; E66.9 Obesity, unspecified; Z99.3 Dependence on wheelchair; I87.2 Venous insufficiency (chronic) (peripheral); Z68.36 Body mass index [BMI] 36.0-36.9, adult; Z79.899 Other long term (current) drug therapy; Z79.890 Hormone replacement therapy; R60.0 Localized edema; M79.89 Other specified soft tissue disorders
CPT/HCPCS: 29580; 99213; G0463

== ENCOUNTER 2021-07-17 09:15 | Outpatient (RCR) | payer MEDICARE, SELFPAY ==
[2021-06-22 00:51] VITALS: BP 166/65; PULSE 82; TEMP 35.5; BMI 36.4
[2021-06-26 09:46] VITALS: BP 154/78; PULSE 88; TEMP 35.9; BMI 36.4
--- NOTE | 2021-06-26 10:25 | HP.PCM_ITS ---
History of Present Illness Date of Service: 06/26/21 Chief Complaint: Severe swelling and edema in the patient's lower extremities, associated with multiple large superficial ulcerations bilaterally. History of Wound: This is an 86-year-old female who presented with severe swelling and edema in both lower extremities, as well as multiple superficial ulcerations in her lower extremities bilaterally. She is accompanied by her son, with whom she lives. It is said that the swelling and ulcerations in the patient's legs have been present for approximately 1 year. The patient has multiple pre-existing medical problems, listed below. She recently required hospitalization, and a subsequent 1 month stay in a intermediate in treatment for an acute urinary tract infection, which exacerbated the swelling, edema, and ulcerations in her lower extremities. The patient's mobility is extremely limited. She ambulates in very limited fashion using a walker. She is largely wheelchair-bound. She sleeps in a recliner. She sits idly throughout the day. FOR[facility]LY [facility], [facility] Medical History Chronic kidney disease, stage IV (severe) Congestive heart failure Debility Dependent edema Diabetes mellitus Diverticulosis large intestine w/o perforation or abscess w/o bleeding Gout Hiatal hernia Hypothyroidism Immobility Leg edema Leg swelling Obesity (BMI 30-39.9) Parkinsons disease Valvular heart disease Venous hypertension, chronic, with ulcer Venous stasis ulcer Home Medications Centrum Silver 1 ea PO DAILY 06/20/17 [History Last Taken 04/14/18] atorvastatin 10 mg PO DAILY 06/20/17 [History Last Taken 04/14/18] ferrous sulfate 325 mg PO BID 06/20/17 [History Last Taken 04/14/18] levothyroxine 137 mcg PO DAILY 06/20/17 [History Last Taken 04/14/18] omeprazole 20 mg PO DAILY 06/20/17 [History Last Taken 04/14/18] allopurinol 100 mg PO QHS 04/15/18 [History Last Taken 04/14/18] metoprolol tartrate 25 mg PO BID 04/15/18 [History Last Taken 04/14/18] acetaminophen 1,000 mg PO TID tablet 04/18/18 [Rx Last Taken Unknown] cefdinir 300 mg PO DAILY #3 capsule 04/18/18 [Rx Last Taken Unknown] insulin lispro [Humalog KwikPen Insulin] See Protocol SUBCUT ACHS insuln.pen 04/18/18 [Rx Last Taken Unknown] menthol-zinc oxide [Calmoseptine] 1 applic TOPICAL BID tube 04/18/18 [Rx Last Taken Unknown] nystatin 1 applic TOPICAL TID tube 04/18/18 [Rx Last Taken Unknown] Lactobacillus acidoph-L. bifid cap PO 06/19/21 [History Last Taken Unknown] amlodipine 2.5 06/19/21 [History Last Taken Unknown] famotidine 20 mg PO DAILY 06/19/21 [History Last Taken Unknown] insulin glargine [Lantus Solostar U-100 Insulin] 20 unit SUBCUT BID 06/19/21 [History Last Taken Unknown] Allergy/AdvReac Type Severity Reaction Status Date / Time lisinopril AdvReac Other Verified 07/14/17 13:17 Social History Smoking Status: Never smoker Vital Signs Vital Signs Vital Signs: 06/26/21 09:46 Temperature 96.6 F L Temperature Source Temporal Pulse Rate 88 Blood Pressure 154/78 H Blood Pressure Mean 103 Blood Pressure Source Monitor Weight Weight: 193 lb Body Mass Index (BMI) 36.4 Physical Exam Const alert, oriented x3, no apparent distress and well nourished Constitutional Narrative: The patient is obese. She appears weak and debilitated. General Appearance: cooperative and well developed Orientation / Consciousness: awake, oriented to person, oriented to place and oriented to time HEENT normocephalic and head/scalp atraumatic Head and Scalp: normal to inspection, normocephalic and atraumatic External Ear: external ears normal Eyes PERRL and EOMs intact bilaterally General Eye: normal appearance of both eyes Resp normal respiratory effort, normal air movement, no retractions and no use of accessory muscles Effort and Inspection: able to speak in complete sentences Extremity no calf tenderness Extremity Narrative: Severe swelling, edema, and lymphedema are noted in the patient's lower extremities bilaterally. General Extremity: Negative for clubbing or cyanosis Skin Wound Narrative: Multiple large superficial ulcerations are noted in the lower extremities bilaterally. Dimensions are documented elsewhere. Lower extremities remain swollen and edematous, but with some improvement over the patient's visit 1 week ago. There is no sign of infection or cellulitis. There is extensive scaly, sloughing epithelium bilaterally. At the base of the left dorsal second toe there appears to be hypertrophic epithelium, but no frankly open wound. Neuro oriented x3, CN's II-XII intact bilaterally and moves all extremities Sensorium / Orientation: awake, alert, oriented to person, oriented to place and oriented to time Psych Appearance: grossly normal and appropriate Attitude: calm Activity / Motor Behavior: appropriate eye contact Speech: normal speech Mood & Affect: euthymic mood Thought Process: normal thought process Thought Content: normal thought content Attention / Concentration: attention grossly intact Debridement Note Debridement Note Wound debrided: Lower extremity superficial ulcerations Type of Debridement: Selective debridement Anesthesia Used: 5% Lidocaine Gel Depth: Down to and including healthy tissue Percentage of wound debrided: 70 Instrument Used: 5mm curette Tissue Removed: Sloughing epithelium and bioburden Severity: Limited To Skin Breakdown Amount of bleeding with debridement: None Bleeding Controlled with: Compression and gauze Patient tolerated procedure: Patient tolerated procedure well Post-Debridement Measurements and Additional Note: Post-Debridement Measurements/Treatment - Nurse 1 - General Ulcer Assessment Start: 06/26/21 09:46 Freq: Status: Active Protocol: [email or web address] Activity Type Activity Date Activity User E-Sign Co-Sign Detail Recorded Client Recorded Date Recorded By Document 06/26/21 09:46 MA [id number] 06/26/21 09:58 MA 06/26/21 09:46 - Today's Visit Information Type of service 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 Any new allergies or adverse reactions No Had a fall/change in ADL's that may No increase risk of falls Signs or symptoms of abuse and/or No neglect since last visit Have you been in the hospital since your No last visit? Has dressing in place as prescribed Yes Has compression in place as prescribed Yes Has offloadiing in place as prescribed N/A Experienced any changes in pain level or No management Left Footwear Regular Shoe Right Footwear Regular Shoe Pain Scale: 0-10 Numeric Is Patient Pain Free? Yes WC - Nurse 1 - General Ulcer Measurement Start: 06/26/21 09:46 Freq: Status: Active Protocol: Activity Type Activity Date Activity User E-Sign Co-Sign Detail Recorded Client Recorded Date Recorded By Document 06/26/21 09:46 MARINA [id number] 06/26/21 09:58 AK 06/26/21 09:46 Wound Center Nurse 1 #3 R morris -Combined with other wound No -Current Size (cm) - Length 1.8 -Current Size (cm) - Width 4 -Current Size (cm) - Depth 0.1 -Total Square Cm 7.2 -Photo Taken No -Tunneling No -Undermining/Tunneling No -Circular Undermining No -Change in Wound Grade/Stage No -Exudate Amt Large -Exudate Type Serosanguineous -Granulation Amt None Present (0 %) -Necrosis Amt Large (67-100%) -Necrotic Tissue Type Adherent Slough -Structure Exposed N/A -Texture (Loida-wound Skin Appearance) Assessed, Excoriation -Moisture (Loida-wound Skin Appearance) Assessed, Maceration, Weeping -Color (Loida-wound Skin Appearance) Assessed, Erythema -Temperature (Loida-wound Skin No Abnormality Appearance) (Pt Warm) -Tenderness on Palpation (Loida-wound No Skin Appearance) -Ulcer Cleansing Soap and Water -Foul Odor after Cleansing No -Anesthetic Used 4% Lidocaine Solution #2 2nd/3rd toe cluster -Combined with other wound No -Current Size (cm) - Length 4 -Current Size (cm) - Width 3 -Current Size (cm) - Depth 0.1 -Total Square Cm 12 -Photo Taken No -Tunneling No -Undermining/Tunneling No -Circular Undermining No -Change in Wound Grade/Stage No -Exudate Amt Medium -Exudate Type Serosanguineous -Wound Margin Distinct, Outline Attached -Granulation Quality N/A -Slough/Fibrin Yes -Necrosis Amt Medium (34-66%) -Necrotic Tissue Type Adherent Slough -Structure Exposed N/A -Texture (Loida-wound Skin Appearance) Assessed, Friable -Moisture (Loida-wound Skin Appearance) Assessed, Maceration -Color (Loida-wound Skin Appearance) Assessed,Palor -Temperature (Loida-wound Skin No Abnormality Appearance) (Pt Warm) -Tenderness on Palpation (Loida-wound No Skin Appearance) -Ulcer Cleansing Soap and Water -Foul Odor after Cleansing No -Anesthetic Used 4% Lidocaine Solution #1 Left morris cluster -Combined with other wound No -Current Size (cm) - Length 8.2 -Current Size (cm) - Width 11.5 -Current Size (cm) - Depth 0.2 -Total Square Cm 94.30 -Photo Taken No -Epithelialization None Present -Tunneling No -Undermining/Tunneling No -Circular Undermining No -Change in Wound Grade/Stage No -Exudate Amt Large -Exudate Type Serosanguineous -Wound Margin Distinct, Outline Attached -Granulation Amt None Present (0 %) -Granulation Quality N/A -Slough/Fibrin Yes -Necrosis Amt Large (67-100%) -Necrotic Tissue Type Adherent Slough -Structure Exposed N/A -Texture (Loida-wound Skin Appearance) Assessed, Friable -Moisture (Loida-wound Skin Appearance) Assessed, Maceration, Weeping -Color (Loida-wound Skin Appearance) Assessed, Erythema -Foul Odor after Cleansing No -Anesthetic Used 4% Lidocaine Solution Lower Limb Edema Present No Right Calf (cm) 40.4 Right Ankle (cm) 29.7 Left Calf (cm) 41.2 Left Ankle (cm) 27.8 WC - Nurse 2 - General Ulcer CM Notes Start: 06/26/21 09:46 Freq: Status: Active Protocol: Activity Type Activity Date Activity User E-Sign Co-Sign Detail Recorded Client Recorded Date Recorded By Document 06/26/21 10:11 ALBINA [id number] 06/26/21 10:15 PL 06/26/21 10:11 Wound Center Nurse 2 #3 R morris -Time 10:05 -Correct Patient Yes -Correct Side, Site, Position Yes -Correct Procedure Yes -Procedure Performed Yes -Type of Procedure Debridement -Clinical Debridement Epidermis / Dermis -Tissue Removed Epidermis, Dermis -Post Debridement (cm) - Length 1.8 -Post Debridement (cm) - Width 4.0 -Post Debridement (cm) - Depth 0.1 -Total Square (Post) (cm) 7.20 -Area of Debridement (cm) - Length 0.7 -Area of Debridement (cm) - Width 2.0 -Total Square (Area) (cm) 1.40 -Tunneling No -Undermining/Tunneling No -Circular Undermining No -Wound/Ulcer Outcome Not Healed -Ulcer Cleansing Rinsed/ Irrigated with Saline -Foul Odor after Cleansing No -Bioengineered Tissue No -Bleeding Controlled with Pressure -Treatment Response Procedure Tolerated Well -Debridement - Open, 1st 20sq cm No #2 2nd/3rd toe cluster -Procedure Performed No #1 Left morris cluster -Time 10:05 -Correct Patient Yes -Correct Side, Site, Position Yes -Correct Procedure Yes -Procedure Performed Yes -Type of Procedure Debridement -Clinical Debridement Epidermis / Dermis -Tissue Removed Epidermis, Dermis -Post Debridement (cm) - Length 8.2 -Post Debridement (cm) - Width 11.5 -Post Debridement (cm) - Depth 0.2 -Total Square (Post) (cm) 94.30 -Area of Debridement (cm) - Length 4.0 -Area of Debridement (cm) - Width 4.0 -Total Square (Area) (cm) 16.00 -Tunneling No -Undermining/Tunneling No -Circular Undermining No -Wound/Ulcer Outcome Not Healed -Ulcer Cleansing Rinsed/ Irrigated with Saline -Foul Odor after Cleansing No -Bioengineered Tissue No -Bleeding Controlled with Pressure -Treatment Response Procedure Tolerated Well -Debridement - Open, 1st 20sq cm Yes Pain Scale: 0-10 Numeric Is Patient Pain Free? Yes WC - Nurse 3 - General Ulcer D/C NN Start: 06/26/21 09:46 Freq: Status: Active Protocol: Activity Type Activity Date Activity User E-Sign Co-Sign Detail Recorded Client Recorded Date Recorded By Document 06/26/21 10:19 DL [id number] 06/26/21 10:21 DL 06/26/21 10:19 Wound Care Nurse 3 #3 R morris -Ulcer Cleansing Soap and Water -Foul Odor after Cleansing No #2 2nd/3rd toe cluster -Ulcer Cleansing Soap and Water -Foul Odor after Cleansing No -Other Dressing No Dressing #1 Left morris cluster -Ulcer Cleansing Soap and Water -Foul Odor after Cleansing No Left -Multi-Layered Wrap Application Unna Boot - Left ($) Right -Multi-Layered Wrap Application Unna Boot - Right ($) Treatment Response Procedure Tolerated Well Pain Scale: 0-10 Numeric Is Patient Pain Free? Yes WC - Visit Discharge Discharge Condition Stable Ambulatory Status Ambulatory Transportation Private [facility] Facility Type Home Health Orders Sent Yes Assessment/Plan Assessment/Plan (1) Venous stasis ulcer: CODE(S): I83.009 - Varicose veins of unspecified lower extremity with ulcer of unspecified site; L97.909 - Non-pressure chronic ulcer of unspecified part of unspecified lower leg with unspecified severity QUALIFIERS: Venous stasis ulcer site: calf Varicose vein presence: without varicose veins Laterality: unspecified laterality Non- pressure ulcer stage: limited to breakdown of skin Qualified Code(s): I87.2 - Venous insufficiency (chronic) (peripheral); L97.201 - Non-pressure chronic ulcer of unspecified calf limited to breakdown of skin (2) Venous hypertension, chronic, with ulcer: CODE(S): I87.319 - Chronic venous hypertension (idiopathic) with ulcer of unspecified lower extremity; L97.909 - Non-pressure chronic ulcer of unspecified part of unspecified lower leg with unspecified severity (3) Dependent edema: CODE(S): R60.9 - Edema, unspecified (4) Chronic venous stasis dermatitis: CODE(S): I87.2 - Venous insufficiency (chronic) (peripheral) (5) Leg edema: CODE(S): R60.0 - Localized edema (6) Leg swelling: CODE(S): M79.89 - Other specified soft tissue disorders (7) Immobility: CODE(S): Z74.09 - Other reduced mobility (8) Debility: CODE(S): R53.81 - Other malaise (9) Hiatal hernia: CODE(S): K44.9 - Diaphragmatic hernia without obstruction or gangrene (10) Hypothyroidism: CODE(S): E03.9 - Hypothyroidism, unspecified (11) Chronic kidney disease, stage IV (severe): CODE(S): N18.4 - Chronic kidney disease, stage 4 (severe) (12) Gout: CODE(S): M10.9 - Gout, unspecified (13) Parkinsons disease: CODE(S): G20 - Parkinson's disease (14) Valvular heart disease: CODE(S): I38 - Endocarditis, valve unspecified (15) Diverticulosis large intestine w/o perforation or abscess w/o bleeding: CODE(S): K57.30 - Diverticulosis of large intestine without perforation or abscess without bleeding (16) Congestive heart failure: CODE(S): I50.9 - Heart failure, unspecified (17) Diabetes mellitus: CODE(S): E11.9 - Type 2 diabetes mellitus without complications (18) Obesity (BMI 30-39.9): CODE(S): E66.9 - Obesity, unspecified (19) Left nephrolithiasis: CODE(S): N20.0 - Calculus of kidney (20) Hydroureter, left: CODE(S): N13.4 - Hydroureter (21) Hydronephrosis, left: CODE(S): N13.30 - Unspecified hydronephrosis (22) HTN (hypertension): CODE(S): I10 - Essential (primary) hypertension (23) HLD (hyperlipidemia): CODE(S): E78.5 - Hyperlipidemia, unspecified (24) Chronic lymphedema: (25) Iron deficiency anemia: CODE(S): D50.9 - Iron deficiency anemia, unspecified (26) Morbid obesity: CODE(S): E66.01 - Morbid (severe) obesity due to excess calories PLAN: This is an 86-year-old female who presented with severe swelling, edema, and lymphedema in her lower extremities bilaterally, associated with multiple large superficial ulcerations in her lower extremities, related to the swelling and edema, inactivity, and chronic dependency. She also has multiple pre-existing medical problems. She suffers from debility, and her mobility is extremely limited. As result of the prolonged, chronic dependency of her lower extremities, she has developed multiple large superficial ulceration related to the swelling and edema in her lower extremities. She has chronically slept in a recliner, and spends most of each day in an idle sitting position. The patient is accompanied by her son today, with whom she lives. We have had a lengthy discussion regarding the appropriate measures which are to be implemented in an effort to diminish the swelling and edema in her lower extremities. The patient has been encouraged to elevate her lower extremities to heart level, or higher, as much as possible. She is to attempt to sleep on a flat mattress, or in a position whereby her lower extremities are at heart level, or higher. She is to attempt to elevate her lower extremities as well during daytime hours. Prolonged idle sitting has been discouraged. Activity has been encouraged, though the patient's debility and pre-existing multiple medical problems likely preclude any significant enhancement of her activity level. Weight loss has also been recommended. The patient has been encouraged to optimize her nutritional intake, and to optimize her glycemic control. We are to implement compression to the lower extremities by means of Unna boots, which will be applied twice weekly. This will provide compression to the lower extremities, as well as zinc oxide appropriate to the management of the patient's superficial ulcerations. There appears to be hypertrophic growth of epithelium at the base of the left second toe dorsally. This may be exacerbated by the compression more proximally. We have recommended that this be left undisturbed, and we will consult Podiatry for evaluation and recommendations regarding this area. The patient has home health nursing care already established, and we are to collaborate with home health nursing staff to facilitate the patient's outpatient management. The patient is to return in 1 week for reassessment. Patient has had recent laboratory studies, with results as follows: Sodium 138, potassium 5.1, chloride 104, glucose 73, BUN 44, creatinine 4.25, calcium 7.9, AST 18, alkaline phosphatase 99, total protein 8.1, albumin 2.1, total bilirubin 0.3, ALT 14, white blood count 10.6, hemoglobin 9.4, hematocrit 29.4, platelets 297,000. The patient's pre-existing medical problems will be deferred to the management of her other multi specialty providers. Total time: 29 minutes
[2021-07-03 09:43] VITALS: BP 150/66; PULSE 94; TEMP 36.7; BMI 36.4
--- NOTE | 2021-07-03 16:14 | PCM.WC.HP ---
History of Present Illness Date of Service: 07/03/21 Chief Complaint: Severe swelling and edema in the patient's lower extremities, associated with multiple large superficial ulcerations bilaterally. History of Wound: This is an 86-year-old female who presented with severe swelling and edema in both lower extremities, as well as multiple superficial ulcerations in her lower extremities bilaterally. She is accompanied by her son, with whom she lives. It is said that the swelling and ulcerations in the patient's legs have been present for approximately 1 year. The patient has multiple pre-existing medical problems, listed below. She recently required hospitalization, and a subsequent 1 month stay in a snf in treatment for an acute urinary tract infection, which exacerbated the swelling, edema, and ulcerations in her lower extremities. The patient's mobility is extremely limited. She ambulates in very limited fashion using a walker. She is largely wheelchair-bound. She sleeps in a recliner. She sits idly throughout the day. [facility] Medical History Chronic kidney disease, stage IV (severe) Congestive heart failure Debility Dependent edema Diabetes mellitus Diverticulosis large intestine w/o perforation or abscess w/o bleeding Gout Hiatal hernia Hypothyroidism Immobility Leg edema Leg swelling Obesity (BMI 30-39.9) Parkinsons disease Valvular heart disease Venous hypertension, chronic, with ulcer Venous stasis ulcer Home Medications Centrum Silver 1 ea PO DAILY 06/20/17 [History Last Taken 04/14/18] atorvastatin 10 mg PO DAILY 06/20/17 [History Last Taken 04/14/18] ferrous sulfate 325 mg PO BID 06/20/17 [History Last Taken 04/14/18] levothyroxine 137 mcg PO DAILY 06/20/17 [History Last Taken 04/14/18] omeprazole 20 mg PO DAILY 06/20/17 [History Last Taken 04/14/18] allopurinol 100 mg PO QHS 04/15/18 [History Last Taken 04/14/18] metoprolol tartrate 25 mg PO BID 04/15/18 [History Last Taken 04/14/18] acetaminophen 1,000 mg PO TID tablet 04/18/18 [Rx Last Taken Unknown] cefdinir 300 mg PO DAILY #3 capsule 04/18/18 [Rx Last Taken Unknown] insulin lispro [Humalog KwikPen Insulin] See Protocol SUBCUT ACHS insuln.pen 04/18/18 [Rx Last Taken Unknown] menthol-zinc oxide [Calmoseptine] 1 applic TOPICAL BID tube 04/18/18 [Rx Last Taken Unknown] nystatin 1 applic TOPICAL TID tube 04/18/18 [Rx Last Taken Unknown] Lactobacillus acidoph-L. bifid cap PO 06/19/21 [History Last Taken Unknown] amlodipine 2.5 06/19/21 [History Last Taken Unknown] famotidine 20 mg PO DAILY 06/19/21 [History Last Taken Unknown] insulin glargine [Lantus Solostar U-100 Insulin] 20 unit SUBCUT BID 06/19/21 [History Last Taken Unknown] Allergy/AdvReac Type Severity Reaction Status Date / Time lisinopril AdvReac Other Verified 07/14/17 13:17 Social History Smoking Status: Never smoker Vital Signs Vital Signs Vital Signs: 07/03/21 09:43 Temperature 98.0 F Temperature Source Temporal Pulse Rate 94 Blood Pressure 150/66 H Blood Pressure Mean 94 Blood Pressure Source Monitor Blood Pressure Position Semi-Fowlers Blood Pressure Location Right Arm Weight Weight: 193 lb Body Mass Index (BMI) 36.4 Physical Exam Const alert, oriented x3, no apparent distress and well nourished Constitutional Narrative: The patient is obese. General Appearance: cooperative and well developed Orientation / Consciousness: awake and lethargic HEENT normocephalic and head/scalp atraumatic Head and Scalp: normal to inspection, normocephalic and atraumatic External Ear: external ears normal Eyes PERRL and EOMs intact bilaterally General Eye: normal appearance of both eyes Resp normal respiratory effort, normal air movement, no retractions and no use of accessory muscles Effort and Inspection: able to speak in complete sentences Extremity no calf tenderness General Extremity: Negative for clubbing or cyanosis Skin Wound Narrative: Moderate swelling and edema persist in the patient's lower extremities bilaterally. Inflammatory erythema is noted in the gaiter areas bilaterally. Clustered ulcerations are noted bilaterally in the gaiter areas. Dimensions are documented elsewhere. There is no sign of mathew infection or cellulitis. There is a moderate amount of bioburden. Neuro oriented x3, CN's II-XII intact bilaterally and moves all extremities Sensorium / Orientation: awake Psych Appearance: grossly normal and appropriate Attitude: calm Activity / Motor Behavior: appropriate eye contact Speech: normal speech Mood & Affect: euthymic mood Thought Process: normal thought process Thought Content: normal thought content Attention / Concentration: attention grossly intact Debridement Note Debridement Note Wound debrided: Left pretibial area, clustered ulceration Laterality: Left Type of Debridement: Excisional debridement Anesthesia Used: 5% Lidocaine Gel Depth: Down to and including healthy tissue and in the subcutaneous layer Percentage of wound debrided: 100 Instrument Used: 5mm curette Severity: Fat Layer Exposed Amount of bleeding with debridement: Mild Bleeding Controlled with: Compression and gauze Patient tolerated procedure: Patient tolerated procedure well Post-Debridement Measurements and Additional Note: Post-Debridement Measurements/Treatment - Nurse 1 - General Ulcer Assessment Start: 06/26/21 09:46 Freq: Status: Active Protocol: [email or web address] Activity Type Activity Date Activity User E-Sign Co-Sign Detail Recorded Client Recorded Date Recorded By Document 06/26/21 09:46 OR [id number] 06/26/21 09:58 AK Document 07/03/21 09:43 KR [id number] 07/03/21 09:50 KR 06/26/21 07/03/21 09:46 09:43 - Today's Visit Information Type of service Follow-up Visit Follow-up Visit (Physician/LOCOMOTIVE OBSERVER (Physician/LOCOMOTIVE OBSERVER ) ) Arrival Mode Wheelchair Wheelchair Patient Identification Verified (Name & Yes Yes ) Patient Requires Transmission-Based No Precautions Safety Precautions NA Height and Weight Body Mass Index (BMI) 36.4 36.4 BMI Classification Obese Obese Vital Signs Temperature (97.8 F-99.1 F) 96.6 F L 98.0 F Temperature Source Temporal Temporal Pulse Rate (60-100) 88 94 Pulse Location Monitor Monitor Blood Pressure (90/60-120/80) 154/78 H 150/66 H Blood Pressure Mean 103 94 Source Monitor Monitor Position Semi-Fowlers Blood Pressure Location Right Arm History Since Last Visit- (Skip if this is Patient's initial visit) Have you changed medications since your No No last visit? Any new allergies or adverse reactions No No Had a fall/change in ADL's that may No No increase risk of falls Signs or symptoms of abuse and/or No No neglect since last visit Have you been in the hospital since your No No last visit? Has dressing in place as prescribed Yes Yes Has compression in place as prescribed Yes Yes Has offloadiing in place as prescribed N/A N/A Experienced any changes in pain level or No No management Left Footwear Regular Shoe Regular Shoe Right Footwear Regular Shoe Regular Shoe Pain Scale: 0-10 Numeric Is Patient Pain Free? Yes Yes WC - Nurse 1 - General Ulcer Measurement Start: 06/26/21 09:46 Freq: Status: Active Protocol: Activity Type Activity Date Activity User E-Sign Co-Sign Detail Recorded Client Recorded Date Recorded By Document 06/26/21 09:46 AK [id number] 06/26/21 09:58 AK Document 07/03/21 09:43 KR [id number] 07/03/21 09:50 KR 06/26/21 07/03/21 09:46 09:43 Wound Center Nurse 1 #3 R morris -Combined with other wound No -Current Size (cm) - Length 1.8 2 -Current Size (cm) - Width 4 3 -Current Size (cm) - Depth 0.1 0.1 -Total Square Cm 7.2 6 -Photo Taken No -Tunneling No -Undermining/Tunneling No -Circular Undermining No -Change in Wound Grade/Stage No -Exudate Amt Large Small -Exudate Type Serosanguineous Serosanguineous -Wound Margin Distinct, Outline Attached -Granulation Amt None Present (0 Small (1-33%) %) -Granulation Quality [place] -Necrosis Amt Large (67-100%) Small (1-33%) -Necrotic Tissue Type Adherent Slough Adherent Slough -Structure Exposed N/A -Texture ([place]oid[place]-wound Skin Appearance) Assessed, Assessed, Excoriation Scarring -Moisture ([place]-wound Skin Appearance) Assessed, Assessed, Maceration, Maceration Weeping -Color ([place]-wound Skin Appearance) Assessed, No Abnormality, Erythema Assessed -Temperature ([place]-wound Skin No Abnormality No Abnormality Appearance) (Pt Warm) (Pt Warm) -Tenderness on Palpation ([place]-wound No No Skin Appearance) -Ulcer Cleansing Soap and Water Soap and Water -Foul Odor after Cleansing No No -Anesthetic Used 4% Lidocaine 4% Lidocaine Solution Solution #2 2nd/3rd toe cluster -Combined with other wound No -Current Size (cm) - Length 4 0.1 -Current Size (cm) - Width 3 0.1 -Current Size (cm) - Depth 0.1 0.1 -Total Square Cm 12 0.01 -Photo Taken No -Tunneling No -Undermining/Tunneling No -Circular Undermining No -Change in Wound Grade/Stage No -Exudate Amt Medium Small -Exudate Type Serosanguineous Sanguineous -Wound Margin Distinct, Distinct, Outline Outline Attached Attached -Granulation Amt Small (1-33%) -Granulation Quality N/A [place] -Slough/Fibrin Yes -Necrosis Amt Medium (34-66%) Small (1-33%) -Necrotic Tissue Type Adherent Slough Adherent Slough -Structure Exposed N/A -Texture ([place]-wound Skin Appearance) Assessed, Assessed, Friable Scarring -Moisture ([place]-wound Skin Appearance) Assessed, Assessed, Maceration Maceration -Color ([place]-wound Skin Appearance) Assessed,Palor No Abnormality, Assessed -Temperature ([place]-wound Skin No Abnormality No Abnormality Appearance) (Pt Warm) (Pt Warm) -Tenderness on Palpation ([place]-wound No No Skin Appearance) -Ulcer Cleansing Soap and Water Soap and Water -Foul Odor after Cleansing No No -Anesthetic Used 4% Lidocaine 4% Lidocaine Solution Solution #1 Left morris cluster -Combined with other wound No -Current Size (cm) - Length 8.2 5.5 -Current Size (cm) - Width 11.5 3 -Current Size (cm) - Depth 0.2 0.2 -Total Square Cm 94.30 16.5 -Photo Taken No -Epithelialization None Present -Tunneling No -Undermining/Tunneling No -Circular Undermining No -Change in Wound Grade/Stage No -Exudate Amt Large Small -Exudate Type Serosanguineous Serosanguineous -Wound Margin Distinct, Distinct, Outline Outline Attached Attached -Granulation Amt None Present (0 Medium (34-66%) %) -Granulation Quality N/A [place] -Slough/Fibrin Yes -Necrosis Amt Large (67-100%) Small (1-33%) -Necrotic Tissue Type Adherent Slough Adherent Slough -Structure Exposed N/A -Texture ([place]-wound Skin Appearance) Assessed, Assessed, Friable Scarring -Moisture ([place]-wound Skin Appearance) Assessed, Assessed, Maceration, Maceration Weeping -Color ([place]-wound Skin Appearance) Assessed, No Abnormality, Erythema Assessed -Temperature ([place]-wound Skin No Abnormality Appearance) (Pt Warm) -Tenderness on Palpation ([place]-wound No Skin Appearance) -Ulcer Cleansing Rinsed/ Irrigated with Saline -Foul Odor after Cleansing No No -Anesthetic Used 4% Lidocaine 4% Lidocaine Solution Solution Lower Limb Edema Present No Right Calf (cm) 40.4 42 Right Ankle (cm) 29.7 28 Left Calf (cm) 41.2 43 Left Ankle (cm) 27.8 23 WC - Nurse 2 - General Ulcer CM Notes Start: 06/26/21 09:46 Freq: Status: Active Protocol: Activity Type Activity Date Activity User E-Sign Co-Sign Detail Recorded Client Recorded Date Recorded By Document 06/26/21 10:11 PL [id number] 06/26/21 10:15 PL Document 07/03/21 12:30 PL [id number] 07/03/21 12:34 PL 06/26/21 07/03/21 10:11 12:30 Wound Center Nurse 2 #3 R morris -Time 10:05 10:35 -Correct Patient Yes Yes -Correct Side, Site, Position Yes Yes -Correct Procedure Yes Yes -Procedure Performed Yes Yes -Type of Procedure Debridement Debridement -Clinical Debridement Epidermis / Subcutaneous Dermis -Tissue Removed Epidermis, Subcutaneous Dermis -Post Debridement (cm) - Length 1.8 2.0 -Post Debridement (cm) - Width 4.0 3.0 -Post Debridement (cm) - Depth 0.1 0.1 -Total Square (Post) (cm) 7.20 6.00 -Area of Debridement (cm) - Length 0.7 2.0 -Area of Debridement (cm) - Width 2.0 3.0 -Total Square (Area) (cm) 1.40 6.00 -Tunneling No No -Undermining/Tunneling No No -Circular Undermining No No -Wound/Ulcer Outcome Not Healed Not Healed -Ulcer Cleansing Rinsed/ Rinsed/ Irrigated with Irrigated with Saline Saline -Foul Odor after Cleansing No No -Bioengineered Tissue No No -Bleeding Controlled with Pressure Pressure -Treatment Response Procedure Procedure Tolerated Well Tolerated Well -Debridement - Open, 1st 20sq cm No -Debridement - Subq, 1st 20sq cm No #2 2nd/3rd toe cluster -Procedure Performed No No -Tissue Removed Subcutaneous #1 Left morris cluster -Time 10:05 10:35 -Correct Patient Yes Yes -Correct Side, Site, Position Yes Yes -Correct Procedure Yes Yes -Procedure Performed Yes Yes -Type of Procedure Debridement Debridement -Clinical Debridement Epidermis / Subcutaneous Dermis -Tissue Removed Epidermis, Subcutaneous Dermis -Post Debridement (cm) - Length 8.2 5.5 -Post Debridement (cm) - Width 11.5 3.0 -Post Debridement (cm) - Depth 0.2 0.2 -Total Square (Post) (cm) 94.30 16.50 -Area of Debridement (cm) - Length 4.0 5.5 -Area of Debridement (cm) - Width 4.0 3.0 -Total Square (Area) (cm) 16.00 16.50 -Tunneling No No -Undermining/Tunneling No No -Circular Undermining No No -Wound/Ulcer Outcome Not Healed Not Healed -Ulcer Cleansing Rinsed/ Rinsed/ Irrigated with Irrigated with Saline Saline -Foul Odor after Cleansing No No -Bioengineered Tissue No No -Bleeding Controlled with Pressure Pressure -Treatment Response Procedure Procedure Tolerated Well Tolerated Well -Debridement - Open, 1st 20sq cm Yes -Debridement - Subq, 1st 20sq cm Yes Pain Scale: 0-10 Numeric Is Patient Pain Free? Yes Yes WC - Nurse 3 - General Ulcer D/C NN Start: 06/26/21 09:46 Freq: Status: Active Protocol: Activity Type Activity Date Activity User E-Sign Co-Sign Detail Recorded Client Recorded Date Recorded By Document 06/26/21 10:19 DL [id number] 06/26/21 10:21 DL Edit Result 06/26/21 10:19 DL (1) [id number] 06/27/21 07:08 PL Document 07/03/21 10:21 KR [id number] 07/03/21 10:23 KR (1) Bilateral - Multi-Layered Wrap Application => Unna Boot - => Bilateral ($) - Unna Boots (Bilat) ($) => 2 Left - Multi-Layered Wrap Application Unna Boot - Left ( => $) => Right - Multi-Layered Wrap Application Unna Boot - Right => ($) => 06/26/21 07/03/21 10:19 10:21 Wound Care Nurse 3 #3 R morris -Ulcer Cleansing Soap and Water Soap and Water -Foul Odor after Cleansing No -Primary Dressing Applied Optilok 8x12 -Optilok 8x12 1 #2 2nd/3rd toe cluster -Ulcer Cleansing Soap and Water Soap and Water -Foul Odor after Cleansing No -Other Dressing No Dressing #1 Left morris cluster -Ulcer Cleansing Soap and Water Soap and Water -Foul Odor after Cleansing No -Primary Dressing Applied Optilok 8x12 -Optilok 8x12 1 Bilateral -Multi-Layered Wrap Application Unna Boot - Unna Boot - Bilateral ($) Bilateral ($) -Unna Boots (Bilat) ($) 2 2 Treatment Response Procedure Tolerated Well Pain Scale: 0-10 Numeric Is Patient Pain Free? Yes Yes WC - Visit Discharge Discharge Condition Stable Stable Ambulatory Status Ambulatory Wheelchair Transportation Private Auto Private Auto Accompanied by Facility Type Home Health Orders Sent Yes Assessment/Plan Assessment/Plan (1) Venous hypertension, chronic, with ulcer: CODE(S): I87.319 - Chronic venous hypertension (idiopathic) with ulcer of unspecified lower extremity; L97.909 - Non-pressure chronic ulcer of unspecified part of unspecified lower leg with unspecified severity (2) Dependent edema: CODE(S): R60.9 - Edema, unspecified (3) Chronic venous stasis dermatitis: CODE(S): I87.2 - Venous insufficiency (chronic) (peripheral) (4) Leg edema: CODE(S): R60.0 - Localized edema (5) Leg swelling: CODE(S): M79.89 - Other specified soft tissue disorders (6) Immobility: CODE(S): Z74.09 - Other reduced mobility (7) Debility: CODE(S): R53.81 - Other malaise (8) Hiatal hernia: CODE(S): K44.9 - Diaphragmatic hernia without obstruction or gangrene (9) Hypothyroidism: CODE(S): E03.9 - Hypothyroidism, unspecified (10) Chronic kidney disease, stage IV (severe): CODE(S): N18.4 - Chronic kidney disease, stage 4 (severe) (11) Gout: CODE(S): M10.9 - Gout, unspecified (12) Valvular heart disease: CODE(S): I38 - Endocarditis, valve unspecified (13) Parkinsons disease: CODE(S): G20 - Parkinson's disease (14) Diverticulosis large intestine w/o perforation or abscess w/o bleeding: CODE(S): K57.30 - Diverticulosis of large intestine without perforation or abscess without bleeding (15) Diabetes mellitus: CODE(S): E11.9 - Type 2 diabetes mellitus without complications (16) Congestive heart failure: CODE(S): I50.9 - Heart failure, unspecified (17) Obesity (BMI 30-39.9): CODE(S): E66.9 - Obesity, unspecified (18) Venous stasis ulcer: CODE(S): I83.009 - Varicose veins of unspecified lower extremity with ulcer of unspecified site; L97.909 - Non-pressure chronic ulcer of unspecified part of unspecified lower leg with unspecified severity QUALIFIERS: Venous stasis ulcer site: calf Varicose vein presence: without varicose veins Laterality: unspecified laterality Non-pressure ulcer stage: limited to breakdown of skin Qualified Code(s): I87.2 - Venous insufficiency (chronic) (peripheral); L97.201 - Non-pressure chronic ulcer of unspecified calf limited to breakdown of skin (19) HTN (hypertension): CODE(S): I10 - Essential (primary) hypertension (20) HLD (hyperlipidemia): CODE(S): E78.5 - Hyperlipidemia, unspecified (21) Chronic lymphedema: (22) Iron deficiency anemia: CODE(S): D50.9 - Iron deficiency anemia, unspecified (23) Morbid obesity: CODE(S): E66.01 - Morbid (severe) obesity due to excess calories PLAN: This is an 86-year-old female who presented with severe swelling, edema, and lymphedema in her lower extremities bilaterally, associated with multiple large superficial ulcerations in her lower extremities, related to the swelling and edema, inactivity, and chronic dependency. She also has multiple pre-existing medical problems. She suffers from debility, and her mobility is extremely limited. As result of the prolonged, chronic dependency of her lower extremities, she has developed multiple large superficial ulceration related to the swelling and edema in her lower extremities. She has chronically slept in a recliner, and spends most of each day in an idle sitting position. The patient is accompanied by her son today, with whom she lives. We have had a lengthy discussion regarding the appropriate measures which are to be implemented in an effort to diminish the swelling and edema in her lower extremities. The patient has been encouraged to elevate her lower extremities to heart level, or higher, as much as possible. She is to attempt to sleep on a flat mattress, or in a position whereby her lower extremities are at heart level, or higher. She is to attempt to elevate her lower extremities as well during daytime hours. Prolonged idle sitting has been discouraged. Activity has been encouraged, though the patient's debility and pre-existing multiple medical problems likely preclude any significant enhancement of her activity level. Weight loss has also been recommended. The patient has been encouraged to optimize her nutritional intake, and to optimize her glycemic control. We are to continue compression to the lower extremities by means of Unna boots, which will be applied twice weekly. This will provide compression to the lower extremities, as well as zinc oxide appropriate to the management of the patient's superficial ulcerations. There appears to be hypertrophic growth of epithelium at the base of the left second toe dorsally. This may be exacerbated by the compression more proximally. We have recommended that this be left undisturbed, and we will consult Podiatry for evaluation and recommendations regarding this area. The patient has home health nursing care already established, and we are to collaborate with home health nursing staff to facilitate the patient's outpatient management. The patient is to return in 1 week for reassessment. Patient has had recent laboratory studies, with results as follows: Sodium 138, potassium 5.1, chloride 104, glucose 73, BUN 44, creatinine 4.25, calcium 7.9, AST 18, alkaline phosphatase 99, total protein 8.1, albumin 2.1, total bilirubin 0.3, ALT 14, white blood count 10.6, hemoglobin 9.4, hematocrit 29.4, platelets 297,000. The patient's pre-existing medical problems will be deferred to the management of her other multi specialty providers. Given the patient's chronic lower extremity swelling, edema, and lymphedema, we will request pneumatic mechanical compression pumps for use in the lower extremities as an adjunct to the management of her lower extremity swelling and edema. Total time: 28 minutes
[2021-07-10 08:08] VITALS: BP 141/76; PULSE 101; TEMP 36.1; BMI 36.4
--- NOTE | 2021-07-10 08:51 | WC ---
betadine to toe webspace and gauze
--- NOTE | 2021-07-10 10:49 | HP.PCM_ITS ---
History of Present Illness Date of Service: 07/10/21 Chief Complaint: Severe swelling and edema in the patient's lower extremities, associated with multiple large superficial ulcerations bilaterally. History of Wound: This is an 86-year-old female seen for follow-up of bilateral leg ulcerations in setting of chronic bilateral lower extremity edema secondary to venous insufficiency. Patient seen and being treated by Dr. Altman in the wound care facility. Patient seen by me today denies any constitutional symptoms or pain to bilateral lower extremity ulcerations. Patient denies any chest pain calf pain or shortness of breath at this time as well. Patient has been dressed and Unna boots to bilateral lower extremity. Patient has some protrusions to her left second and third digits. These are weeping with maceration. No other complaints. [facility] Medical History Chronic kidney disease, stage IV (severe) Congestive heart failure Debility Dependent edema Diabetes mellitus Diverticulosis large intestine w/o perforation or abscess w/o bleeding Gout Hiatal hernia Hypothyroidism Immobility Leg edema Leg swelling Obesity (BMI 30-39.9) Parkinsons disease Valvular heart disease Venous hypertension, chronic, with ulcer Venous stasis ulcer Home Medications Centrum Silver 1 ea PO DAILY 06/20/17 [History Last Taken 04/14/18] atorvastatin 10 mg PO DAILY 06/20/17 [History Last Taken 04/14/18] ferrous sulfate 325 mg PO BID 06/20/17 [History Last Taken 04/14/18] levothyroxine 137 mcg PO DAILY 06/20/17 [History Last Taken 04/14/18] omeprazole 20 mg PO DAILY 06/20/17 [History Last Taken 04/14/18] allopurinol 100 mg PO QHS 04/15/18 [History Last Taken 04/14/18] metoprolol tartrate 25 mg PO BID 04/15/18 [History Last Taken 04/14/18] acetaminophen 1,000 mg PO TID tablet 04/18/18 [Rx Last Taken Unknown] cefdinir 300 mg PO DAILY #3 capsule 04/18/18 [Rx Last Taken Unknown] insulin lispro [Humalog KwikPen Insulin] See Protocol SUBCUT ACHS insuln.pen 04/18/18 [Rx Last Taken Unknown] menthol-zinc oxide [Calmoseptine] 1 applic TOPICAL BID tube 04/18/18 [Rx Last Taken Unknown] nystatin 1 applic TOPICAL TID tube 04/18/18 [Rx Last Taken Unknown] Lactobacillus acidoph-L. bifid cap PO 06/19/21 [History Last Taken Unknown] amlodipine 2.5 06/19/21 [History Last Taken Unknown] famotidine 20 mg PO DAILY 06/19/21 [History Last Taken Unknown] insulin glargine [Lantus Solostar U-100 Insulin] 20 unit SUBCUT BID 06/19/21 [History Last Taken Unknown] Allergy/AdvReac Type Severity Reaction Status Date / Time lisinopril AdvReac Other Verified 07/14/17 13:17 Social History Smoking Status: Never smoker Vital Signs Vital Signs Vital Signs: 07/10/21 08:08 Temperature 96.9 F L Temperature Source Temporal Pulse Rate 101 H Blood Pressure 141/76 H Blood Pressure Mean 97 Blood Pressure Source Monitor Weight Weight: 87.543 kg Body Mass Index (BMI) 36.4 Physical Exam Narrative Patient alert oriented to person place and time presents with her son. Patient ambulates unassisted. Vascular: +2 pitting edema noted to bilateral lower extremity. Malleoli region. Dorsalis pedis posterior tibial pulses palpable 2 out of 4 bilateral lower extremity compartments intact digital hair growth noted. Neurologic: Light touch protective sensation intact to bilateral lower extremity. Dermatologic: Multiple ulcerations to bilateral lower extremity at the level of mid tibia demonstrating mild serous drainage, mild periwound maceration, clean granular bases. No signs of infection deep probing or undermining. No fluctuance or crepitus noted bilateral lower extremity. 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 Mild serous drainage noted. No obvious deep ulceration or signs of infection. Musculoskeletal: No pain with calf squeeze to bilateral lower extremity. No wound forming deformity. Muscular strength. Bilateral lower extremity compartments. Debridement Note Debridement Note Post-Debridement Measurements and Additional Note: Post-Debridement Measurements/Treatment WC - Nurse 1 - General Ulcer Assessment Start: 06/26/21 09:46 Freq: Status: Active Protocol: MELISA.LOWEXT Activity Type Activity Date Activity User E-Sign Co-Sign Detail Recorded Client Recorded Date Recorded By Document 06/26/21 09:46 AK [id number] 06/26/21 09:58 AK Document 07/03/21 09:43 KR [id number] 07/03/21 09:50 KR Document 07/10/21 08:08 AK [id number] 07/10/21 08:11 AK 06/26/21 07/03/21 07/10/21 09:46 09:43 08:08 - Today's Visit Information Type of service Follow-up Visit Follow-up Visit Follow-up Visit (Physician/MACHINE SIGN WRITER (Physician/MACHINE SIGN WRITER (Physician/MACHINE SIGN WRITER ) ) ) Arrival Mode Wheelchair Wheelchair Wheelchair Patient Identification Verified (Name & Yes Yes Yes ) Patient Requires Transmission-Based No Precautions Safety Precautions NA Height and Weight Body Mass Index (BMI) 36.4 36.4 36.4 BMI Classification Obese Obese Obese Vital Signs Temperature (97.8 F-99.1 F) 96.6 F L 98.0 F 96.9 F L Temperature Source Temporal Temporal Temporal Pulse Rate (60-100) 88 94 101 H Pulse Location Monitor Monitor Monitor Blood Pressure (90/60-120/80) 154/78 H 150/66 H 141/76 H Blood Pressure Mean 103 94 97 Source Monitor Monitor Monitor Position Semi-Fowlers Blood Pressure Location Right Arm History Since Last Visit- (Skip if this is Patient's initial visit) Have you changed medications since your No No No last visit? Any new allergies or adverse reactions No No No Had a fall/change in ADL's that may No No No increase risk of falls Signs or symptoms of abuse and/or No No No neglect since last visit Have you been in the hospital since your No No No last visit? Has dressing in place as prescribed Yes Yes Yes Has compression in place as prescribed Yes Yes Yes Has offloadiing in place as prescribed N/A N/A N/A Experienced any changes in pain level or No No No management Left Footwear Regular Shoe Regular Shoe Regular Shoe Right Footwear Regular Shoe Regular Shoe Regular Shoe Pain Scale: 0-10 Numeric Is Patient Pain Free? Yes Yes Yes - Nurse 1 - General Ulcer Measurement Start: 06/26/21 09:46 Freq: Status: Active Protocol: Activity Type Activity Date Activity User E-Sign Co-Sign Detail Recorded Client Recorded Date Recorded By Document 06/26/21 09:46 AK [id number] 06/26/21 09:58 AK Document 07/03/21 09:43 KR [id number] 07/03/21 09:50 KR Document 07/10/21 08:08 AK [id number] 07/10/21 08:11 AK 06/26/21 07/03/21 07/10/21 09:46 09:43 08:08 Wound Center Nurse 1 #3 R morris -Combined with other wound No No -Current Size (cm) - Length 1.8 2 8 -Current Size (cm) - Width 4 3 6 -Current Size (cm) - Depth 0.1 0.1 0.1 -Total Square Cm 7.2 6 48 -Photo Taken No No -Tunneling No No -Undermining/Tunneling No No -Circular Undermining No No -Change in Wound Grade/Stage No No -Exudate Amt Large Small Medium -Exudate Type Serosanguineous Serosanguineous Serosanguineous -Wound Margin Distinct, Distinct, Outline Outline Attached Attached -Granulation Amt None Present (0 Small (1-33%) %) -Granulation Quality [place] N/A -Slough/Fibrin No -Necrosis Amt Large (67-100%) Small (1-33%) Medium (34-66%) -Necrotic Tissue Type Adherent Slough Adherent Slough Adherent Slough -Structure Exposed N/A N/A -Texture (Loida-wound Skin Appearance) Assessed, Assessed, No Abnormality, Excoriation Scarring Assessed -Moisture ([place]oid[place]-wound Skin Appearance) Assessed, Assessed, Assessed, Maceration, Maceration Weeping Weeping -Color (Loida-wound Skin Appearance) Assessed, No Abnormality, No Abnormality, Erythema Assessed Assessed -Temperature ([place]-wound Skin No Abnormality No Abnormality No Abnormality Appearance) (Pt Warm) (Pt Warm) (Pt Warm) -Tenderness on Palpation ([place]oid[place]-wound No No No Skin Appearance) -Ulcer Cleansing Soap and Water Soap and Water Soap and Water -Foul Odor after Cleansing No No No -Anesthetic Used 4% Lidocaine 4% Lidocaine 4% Lidocaine Solution Solution Solution #2 2nd/3rd toe cluster -Combined with other wound No No -Current Size (cm) - Length 4 0.1 0.1 -Current Size (cm) - Width 3 0.1 0.1 -Current Size (cm) - Depth 0.1 0.1 0.1 -Total Square Cm 12 0.01 0.01 -Photo Taken No No -Tunneling No No -Undermining/Tunneling No No -Circular Undermining No No -Change in Wound Grade/Stage No No -Exudate Amt Medium Small None Present -Exudate Type Serosanguineous Sanguineous Serosanguineous -Wound Margin Distinct, Distinct, Distinct, Outline Outline Outline Attached Attached Attached -Granulation Amt Small (1-33%) None Present (0 %) -Granulation Quality N/A [place] -Slough/Fibrin Yes -Necrosis Amt Medium (34-66%) Small (1-33%) -Necrotic Tissue Type Adherent Slough Adherent Slough -Structure Exposed N/A N/A -Texture ([place]-wound Skin Appearance) Assessed, Assessed, No Abnormality, Friable Scarring Assessed -Moisture ([place]-wound Skin Appearance) Assessed, Assessed, No Abnormality, Maceration Maceration Assessed -Color ([place]-wound Skin Appearance) Assessed,Palor No Abnormality, No Abnormality, Assessed Assessed -Temperature ([place]-wound Skin No Abnormality No Abnormality No Abnormality Appearance) (Pt Warm) (Pt Warm) (Pt Warm) -Tenderness on Palpation ([place]-wound No No No Skin Appearance) -Ulcer Cleansing Soap and Water Soap and Water Soap and Water -Foul Odor after Cleansing No No -Anesthetic Used 4% Lidocaine 4% Lidocaine 4% Lidocaine Solution Solution Solution #1 Left morris cluster -Combined with other wound No No -Current Size (cm) - Length 8.2 5.5 9.5 -Current Size (cm) - Width 11.5 3 17 -Current Size (cm) - Depth 0.2 0.2 0.1 -Total Square Cm 94.30 16.5 161.5 -Photo Taken No No -Epithelialization None Present -Tunneling No No -Undermining/Tunneling No No -Circular Undermining No No -Change in Wound Grade/Stage No No -Exudate Amt Large Small Medium -Exudate Type Serosanguineous Serosanguineous Serosanguineous -Wound Margin Distinct, Distinct, Distinct, Outline Outline Outline Attached Attached Attached -Granulation Amt None Present (0 Medium (34-66%) Small (1-33%) %) -Granulation Quality N/A [place] N/A -Slough/Fibrin Yes Yes -Necrosis Amt Large (67-100%) Small (1-33%) Medium (34-66%) -Necrotic Tissue Type Adherent Slough Adherent Slough Adherent Slough -Structure Exposed N/A N/A -Texture ([place]-wound Skin Appearance) Assessed, Assessed, No Abnormality, Friable Scarring Assessed -Moisture ([place]-wound Skin Appearance) Assessed, Assessed, Assessed, Maceration, Maceration Weeping Weeping -Color ([place]-wound Skin Appearance) Assessed, No Abnormality, No Abnormality, Erythema Assessed Assessed -Temperature ([place]-wound Skin No Abnormality No Abnormality Appearance) (Pt Warm) (Pt Warm) -Tenderness on Palpation ([place]-wound No No Skin Appearance) -Ulcer Cleansing Rinsed/ Soap and Water Irrigated with Saline -Foul Odor after Cleansing No No No -Anesthetic Used 4% Lidocaine 4% Lidocaine 4% Lidocaine Solution Solution Solution Lower Limb Edema Present No Right Calf (cm) 40.4 42 39 Right Ankle (cm) 29.7 28 27.5 Left Calf (cm) 41.2 43 39 Left Ankle (cm) 27.8 23 30 WC - Nurse 2 - General Ulcer CM Notes Start: 06/26/21 09:46 Freq: Status: Active Protocol: Activity Type Activity Date Activity User E-Sign Co-Sign Detail Recorded Client Recorded Date Recorded By Document 06/26/21 10:11 ALBINA [id number] 06/26/21 10:15 PL Document 07/03/21 12:30 PL [id number] 07/03/21 12:34 PL Document 07/10/21 08:35 [id number] 07/10/21 08:39 06/26/21 07/03/21 07/10/21 10:11 12:30 08:35 Wound Center Nurse 2 #3 R morris -Time 10:05 10:35 08:35 -Correct Patient Yes Yes Yes -Correct Side, Site, Position Yes Yes Yes -Correct Procedure Yes Yes Yes -Procedure Performed Yes Yes Yes -Type of Procedure Debridement Debridement Debridement -Clinical Debridement Epidermis / Subcutaneous Subcutaneous Dermis -Tissue Removed Epidermis, Subcutaneous Subcutaneous Dermis -Post Debridement (cm) - Length 1.8 2.0 5.0 -Post Debridement (cm) - Width 4.0 3.0 2.8 -Post Debridement (cm) - Depth 0.1 0.1 0.1 -Total Square (Post) (cm) 7.20 6.00 14.00 -Area of Debridement (cm) - Length 0.7 2.0 5.0 -Area of Debridement (cm) - Width 2.0 3.0 2.8 -Total Square (Area) (cm) 1.40 6.00 14.00 -Tunneling No No No -Undermining/Tunneling No No No -Circular Undermining No No No -Wound/Ulcer Outcome Not Healed Not Healed Not Healed -Ulcer Cleansing Rinsed/ Rinsed/ Rinsed/ Irrigated with Irrigated with Irrigated with Saline Saline Saline -Foul Odor after Cleansing No No No -Bioengineered Tissue No No No -Bleeding Controlled with Pressure Pressure Pressure -Treatment Response Procedure Procedure Procedure Tolerated Well Tolerated Well Tolerated Well -Offloading No -Debridement - Open, 1st 20sq cm No -Debridement - Subq, 1st 20sq cm No Yes -Debridement, SubQ, ea addt'l 20sq cm 1 or part thereof #2 2nd/3rd toe cluster -Time 08:37 -Correct Patient Yes -Correct Side, Site, Position Yes -Correct Procedure Yes -Procedure Performed No No Yes -Type of Procedure Debridement -Clinical Debridement Subcutaneous -Tissue Removed Subcutaneous Subcutaneous -Tunneling No -Undermining/Tunneling No -Circular Undermining No -Wound/Ulcer Outcome Not Healed -Ulcer Cleansing Rinsed/ Irrigated with Saline -Foul Odor after Cleansing No -Bioengineered Tissue No -Bleeding Controlled with Pressure -Treatment Response Procedure Tolerated Well -Offloading No -Debridement - Subq, 1st 20sq cm No #1 Left morris cluster -Time 10:05 10:35 08:37 -Correct Patient Yes Yes Yes -Correct Side, Site, Position Yes Yes Yes -Correct Procedure Yes Yes Yes -Procedure Performed Yes Yes Yes -Type of Procedure Debridement Debridement Debridement -Clinical Debridement Epidermis / Subcutaneous Subcutaneous Dermis -Tissue Removed Epidermis, Subcutaneous Subcutaneous Dermis -Post Debridement (cm) - Length 8.2 5.5 7 -Post Debridement (cm) - Width 11.5 3.0 3.1 -Post Debridement (cm) - Depth 0.2 0.2 0.1 -Total Square (Post) (cm) 94.30 16.50 21.7 -Area of Debridement (cm) - Length 4.0 5.5 7 -Area of Debridement (cm) - Width 4.0 3.0 3.1 -Total Square (Area) (cm) 16.00 16.50 21.7 -Tunneling No No No -Undermining/Tunneling No No No -Circular Undermining No No No -Wound/Ulcer Outcome Not Healed Not Healed Not Healed -Ulcer Cleansing Rinsed/ Rinsed/ Rinsed/ Irrigated with Irrigated with Irrigated with Saline Saline Saline -Foul Odor after Cleansing No No No -Bioengineered Tissue No No No -Bleeding Controlled with Pressure Pressure Pressure -Treatment Response Procedure Procedure Procedure Tolerated Well Tolerated Well Tolerated Well -Offloading No -Debridement - Open, 1st 20sq cm Yes -Debridement - Subq, 1st 20sq cm Yes No -Debridement, SubQ, ea addt'l 20sq cm 1 or part thereof Pain Scale: 0-10 Numeric Is Patient Pain Free? Yes Yes Yes WC - Nurse 3 - General Ulcer D/C NN Start: 06/26/21 09:46 Freq: Status: Active Protocol: Activity Type Activity Date Activity User E-Sign Co-Sign Detail Recorded Client Recorded Date Recorded By Document 06/26/21 10:19 DL [id number] 06/26/21 10:21 DL Edit Result 06/26/21 10:19 DL (1) [id number] 06/27/21 07:08 PL Document 07/03/21 10:21 KR [id number] 07/03/21 10:23 KR Document 07/10/21 08:49 AK [id number] 07/10/21 08:53 AK (1) Bilateral - Multi-Layered Wrap Application => Unna Boot - => Bilateral ($) - Unna Boots (Bilat) ($) => 2 Left - Multi-Layered Wrap Application Unna Boot - Left ( => $) => Right - Multi-Layered Wrap Application Unna Boot - Right => ($) => 06/26/21 07/03/21 07/10/21 10:19 10:21 08:49 Wound Care Nurse 3 #3 R morris -Ulcer Cleansing Soap and Water Soap and Water Rinsed/ Irrigated with Saline -Foul Odor after Cleansing No No -Negative Pressure Wound Therapy N/A -Primary Dressing Applied Optilok 8x12 -Optilok 8x12 1 #2 2nd/3rd toe cluster -Ulcer Cleansing Soap and Water Soap and Water -Foul Odor after Cleansing No -Other Dressing No Dressing #1 Left morris cluster -Ulcer Cleansing Soap and Water Soap and Water -Foul Odor after Cleansing No -Primary Dressing Applied Optilok 8x12 -Optilok 8x12 1 Bilateral -Multi-Layered Wrap Application Unna Boot - Unna Boot - Unna Boot - Bilateral ($) Bilateral ($) Bilateral ($) -Unna Boots (Bilat) ($) 2 2 2 Treatment Response Procedure Tolerated Well Pain Scale: 0-10 Numeric Is Patient Pain Free? Yes Yes Yes WC - Visit Discharge Discharge Condition Stable Stable Stable Ambulatory Status Ambulatory Wheelchair Wheelchair Transportation Private Auto Private Auto Private Auto Accompanied by son Medication Reconcilliation completed & Yes provided to patient/care provider Clinical Summary of Care Provided Yes Facility Type Home Health Orders Sent Yes 07/10/21 08:51 Wound Center by Oracio Rasmussen to toe webspace and gauze Initialized on 07/10/21 08:51 - END OF NOTE Assessment/Plan Assessment/Plan (1) Non-pressure chronic ulcer of right calf with fat layer exposed: CODE(S): L97.212 - Non-pressure chronic ulcer of right calf with fat layer exposed PLAN: Patient examined evaluated, all findings discussed with patient in detail. Patient's wounds are stable at this time demonstrate no signs of infection there is mild stasis dermatitis to the periwound areas. Wounds were excisionally debrided down to including level subcutaneous tissue of all nonviable tissue using 3 mm dermal curette. Topical anesthesia used. Hemostasis obtained with light compression. Pre and postdebridement measurements documented in nursing notes. Wound sites were cleansed and redressed with Unna boots to bilateral lower extremity. I recommend application of Betadine to the interdigital spaces with 4 x 4's for toe spacing. We may have to consider switch to a topical talcum powder or tolnaftate to keep this area dry and prevent any weeping in the future. These papillomatous projections are likely related to chronic venous insufficiency with hypertrophic skin changes and will continue to observe them and ensure that there are no future ulcerations at the sites otherwise we could consider excision if need be. I recommend compression elevation and exercise for edema management. Patient will follow up with Dr. Altman in the wound care center per her typical regimen. (2) Non-pressure chronic ulcer of left calf with fat layer exposed: CODE(S): L97.222 - Non-pressure chronic ulcer of left calf with fat layer exposed (3) Venous insufficiency: CODE(S): I87.2 - Venous insufficiency (chronic) (peripheral)
[2021-07-17 08:18] VITALS: TEMP 36.3; BMI 36.4
--- NOTE | 2021-07-17 08:51 | PCM.WC.HP ---
History of Present Illness Date of Service: 07/17/21 Chief Complaint: Severe swelling and edema in the patient's lower extremities, associated with multiple large superficial ulcerations bilaterally. History of Wound: This is an 86-year-old female who presented with severe swelling and edema in both lower extremities, as well as multiple superficial ulcerations in her lower extremities bilaterally. She is accompanied by her son, with whom she lives. It is said that the swelling and ulcerations in the patient's legs have been present for approximately 1 year. The patient has multiple pre-existing medical problems, listed below. She recently required hospitalization, and a subsequent 1 month stay in a [place] [facility] facility in treatment for an acute urinary tract infection, which exacerbated the swelling, edema, and ulcerations in her lower extremities. The patient's mobility is extremely limited. She ambulates in very limited fashion using a walker. She is largely wheelchair-bound. She sleeps in a recliner. She sits idly throughout the day. [facility] Medical History Chronic kidney disease, stage IV (severe) Congestive heart failure Debility Dependent edema Diabetes mellitus Diverticulosis large intestine w/o perforation or abscess w/o bleeding Gout Hiatal hernia Hypothyroidism Immobility Leg edema Leg swelling Obesity (BMI 30-39.9) Parkinsons disease Valvular heart disease Venous hypertension, chronic, with ulcer Venous stasis ulcer Home Medications Centrum Silver 1 ea PO DAILY 06/20/17 [History Last Taken 04/14/18] atorvastatin 10 mg PO DAILY 06/20/17 [History Last Taken 04/14/18] ferrous sulfate 325 mg PO BID 06/20/17 [History Last Taken 04/14/18] levothyroxine 137 mcg PO DAILY 06/20/17 [History Last Taken 04/14/18] omeprazole 20 mg PO DAILY 06/20/17 [History Last Taken 04/14/18] allopurinol 100 mg PO QHS 04/15/18 [History Last Taken 04/14/18] metoprolol tartrate 25 mg PO BID 04/15/18 [History Last Taken 04/14/18] acetaminophen 1,000 mg PO TID tablet 04/18/18 [Rx Last Taken Unknown] cefdinir 300 mg PO DAILY #3 capsule 04/18/18 [Rx Last Taken Unknown] insulin lispro [Humalog KwikPen Insulin] See Protocol SUBCUT ACHS insuln.pen 04/18/18 [Rx Last Taken Unknown] menthol-zinc oxide [Calmoseptine] 1 applic TOPICAL BID tube 04/18/18 [Rx Last Taken Unknown] nystatin 1 applic TOPICAL TID tube 04/18/18 [Rx Last Taken Unknown] Lactobacillus acidoph-L. bifid cap PO 06/19/21 [History Last Taken Unknown] amlodipine 2.5 06/19/21 [History Last Taken Unknown] famotidine 20 mg PO DAILY 06/19/21 [History Last Taken Unknown] insulin glargine [Lantus Solostar U-100 Insulin] 20 unit SUBCUT BID 06/19/21 [History Last Taken Unknown] Allergy/AdvReac Type Severity Reaction Status Date / Time lisinopril AdvReac Other Verified 07/14/17 13:17 Social History Smoking Status: Never smoker Vital Signs Vital Signs Vital Signs: 07/17/21 08:18 Temperature 97.4 F L Temperature Source Temporal Weight Weight: 193 lb Body Mass Index (BMI) 36.4 Physical Exam Const alert, oriented x3, no apparent distress and well nourished Constitutional Narrative: The patient appears weak and debilitated. Her mobility is impaired. General Appearance: cooperative, comfortable and well developed Orientation / Consciousness: awake, oriented to person, oriented to place and oriented to time HEENT normocephalic and head/scalp atraumatic Head and Scalp: normal to inspection, normocephalic and atraumatic External Ear: external ears normal Eyes PERRL and EOMs intact bilaterally General Eye: normal appearance of both eyes Resp normal respiratory effort, normal air movement, no retractions and no use of accessory muscles Effort and Inspection: able to speak in complete sentences Extremity no calf tenderness General Extremity: Negative for clubbing or cyanosis Skin Wound Narrative: Mild swelling and edema is noted in both lower extremities, though improved as compared to prior weeks. There is a rather diffuse inflammatory erythema in the gaiter areas bilaterally. Multiple clustered superficial ulcerations are noted in the gaiter areas bilaterally, though with very minimal bioburden. In general, the open ulcerations are pink and healthy in appearance, with evidence of active granulation tissue. Neuro oriented x3, CN's II-XII intact bilaterally and moves all extremities Sensorium / Orientation: awake and alert Psych Appearance: grossly normal and appropriate Attitude: calm Activity / Motor Behavior: appropriate eye contact Speech: normal speech Mood & Affect: euthymic mood Thought Process: normal thought process Thought Content: normal thought content Attention / Concentration: attention grossly intact Debridement Note Debridement Note No debridement was completed: No debridement was completed today Post-Debridement Measurements and Additional Note: Post-Debridement Measurements/Treatment - Nurse 1 - General Ulcer Assessment Start: 06/26/21 09:46 Freq: Status: Active Protocol: Liquid StateCATHIE Activity Type Activity Date Activity User E-Sign Co-Sign Detail Recorded Client Recorded Date Recorded By Document 06/26/21 09:46 AK [id number] 06/26/21 09:58 AK Document 07/03/21 09:43 KR [id number] 07/03/21 09:50 KR Document 07/10/21 08:08 AK [id number] 07/10/21 08:11 AK Document 07/17/21 08:18 KR [id number] 07/17/21 08:29 KR 06/26/21 07/03/21 07/10/21 09:46 09:43 08:08 - Today's Visit Information Type of service Follow-up Visit Follow-up Visit Follow-up Visit (Physician/POUCH MAKER (Physician/POUCH MAKER (Physician/POUCH MAKER ) ) ) Arrival Mode Wheelchair Wheelchair Wheelchair Patient Identification Verified (Name & Yes Yes Yes ) Patient Requires Transmission-Based No Precautions Safety Precautions NA Height and Weight Body Mass Index (BMI) 36.4 36.4 36.4 BMI Classification Obese Obese Obese Vital Signs Temperature (97.8 F-99.1 F) 96.6 F L 98.0 F 96.9 F L Temperature Source Temporal Temporal Temporal Pulse Rate (60-100) 88 94 101 H Pulse Location Monitor Monitor Monitor Blood Pressure (90/60-120/80) 154/78 H 150/66 H 141/76 H Blood Pressure Mean 103 94 97 Source Monitor Monitor Monitor Position Semi-Fowlers Blood Pressure Location Right Arm History Since Last Visit- (Skip if this is Patient's initial visit) Have you changed medications since your No No No last visit? Any new allergies or adverse reactions No No No Had a fall/change in ADL's that may No No No increase risk of falls Signs or symptoms of abuse and/or No No No neglect since last visit Have you been in the hospital since your No No No last visit? Has dressing in place as prescribed Yes Yes Yes Has compression in place as prescribed Yes Yes Yes Has offloadiing in place as prescribed N/A N/A N/A Experienced any changes in pain level or No No No management Left Footwear Regular Shoe Regular Shoe Regular Shoe Right Footwear Regular Shoe Regular Shoe Regular Shoe Pain Scale: 0-10 Numeric Is Patient Pain Free? Yes Yes Yes 07/17/21 08:18 WC - Today's Visit Information Type of service Follow-up Visit (Physician/POUCH MAKER ) Arrival Mode Ambulatory Patient Identification Verified (Name & Yes ) Patient Requires Transmission-Based Precautions Safety Precautions Height and Weight Body Mass Index (BMI) 36.4 BMI Classification Obese Vital Signs Temperature (97.8 F-99.1 F) 97.4 F L Temperature Source Temporal Pulse Rate (60-100) Pulse Location Blood Pressure (90/60-120/80) Blood Pressure Mean Source Position Blood Pressure Location History Since Last Visit- (Skip if this is Patient's initial visit) Have you changed medications since your No last visit? Any new allergies or adverse reactions No Had a fall/change in ADL's that may No increase risk of falls Signs or symptoms of abuse and/or No neglect since last visit Have you been in the hospital since your No last visit? Has dressing in place as prescribed Yes Has compression in place as prescribed Yes Has offloadiing in place as prescribed N/A Experienced any changes in pain level or No management Left Footwear Regular Shoe Right Footwear Regular Shoe Pain Scale: 0-10 Numeric Is Patient Pain Free? Yes - Nurse 1 - General Ulcer Measurement Start: 06/26/21 09:46 Freq: Status: Active Protocol: Activity Type Activity Date Activity User E-Sign Co-Sign Detail Recorded Client Recorded Date Recorded By Document 06/26/21 09:46 MARINA [id number] 06/26/21 09:58 AK Document 07/03/21 09:43 KR [id number] 07/03/21 09:50 KR Document 07/10/21 08:08 AK [id number] 07/10/21 08:11 AK Document 07/17/21 08:18 KR [id number] 07/17/21 08:29 KR 06/26/21 07/03/21 07/10/21 09:46 09:43 08:08 Wound Center Nurse 1 #3 R morris -Combined with other wound No No -Current Size (cm) - Length 1.8 2 8 -Current Size (cm) - Width 4 3 6 -Current Size (cm) - Depth 0.1 0.1 0.1 -Total Square Cm 7.2 6 48 -Photo Taken No No -Tunneling No No -Undermining/Tunneling No No -Circular Undermining No No -Change in Wound Grade/Stage No No -Exudate Amt Large Small Medium -Exudate Type Serosanguineous Serosanguineous Serosanguineous -Wound Margin Distinct, Distinct, Outline Outline Attached Attached -Granulation Amt None Present (0 Small (1-33%) %) -Granulation Quality [place] N/A -Slough/Fibrin No -Necrosis Amt Large (67-100%) Small (1-33%) Medium (34-66%) -Necrotic Tissue Type Adherent Slough Adherent Slough Adherent Slough -Structure Exposed N/A N/A -Texture ([place]-wound Skin Appearance) Assessed, Assessed, No Abnormality, Excoriation Scarring Assessed -Moisture ([place]-wound Skin Appearance) Assessed, Assessed, Assessed, Maceration, Maceration Weeping Weeping -Color ([place]-wound Skin Appearance) Assessed, No Abnormality, No Abnormality, Erythema Assessed Assessed -Temperature ([place]-wound Skin No Abnormality No Abnormality No Abnormality Appearance) (Pt Warm) (Pt Warm) (Pt Warm) -Tenderness on Palpation ([place]-wound No No No Skin Appearance) -Ulcer Cleansing Soap and Water Soap and Water Soap and Water -Foul Odor after Cleansing No No No -Anesthetic Used 4% Lidocaine 4% Lidocaine 4% Lidocaine Solution Solution Solution #2 2nd/3rd toe cluster -Combined with other wound No No -Current Size (cm) - Length 4 0.1 0.1 -Current Size (cm) - Width 3 0.1 0.1 -Current Size (cm) - Depth 0.1 0.1 0.1 -Total Square Cm 12 0.01 0.01 -Photo Taken No No -Tunneling No No -Undermining/Tunneling No No -Circular Undermining No No -Change in Wound Grade/Stage No No -Exudate Amt Medium Small None Present -Exudate Type Serosanguineous Sanguineous Serosanguineous -Wound Margin Distinct, Distinct, Distinct, Outline Outline Outline Attached Attached Attached -Granulation Amt Small (1-33%) None Present (0 %) -Granulation Quality N/A [place] -Slough/Fibrin Yes -Necrosis Amt Medium (34-66%) Small (1-33%) -Necrotic Tissue Type Adherent Slough Adherent Slough -Structure Exposed N/A N/A -Texture ([place]-wound Skin Appearance) Assessed, Assessed, No Abnormality, Friable Scarring Assessed -Moisture ([place]-wound Skin Appearance) Assessed, Assessed, No Abnormality, Maceration Maceration Assessed -Color ([place]-wound Skin Appearance) Assessed,Palor No Abnormality, No Abnormality, Assessed Assessed -Temperature ([place]-wound Skin No Abnormality No Abnormality No Abnormality Appearance) (Pt Warm) (Pt Warm) (Pt Warm) -Tenderness on Palpation ([place]-wound No No No Skin Appearance) -Ulcer Cleansing Soap and Water Soap and Water Soap and Water -Foul Odor after Cleansing No No -Anesthetic Used 4% Lidocaine 4% Lidocaine 4% Lidocaine Solution Solution Solution #1 Left morris cluster -Combined with other wound No No -Current Size (cm) - Length 8.2 5.5 9.5 -Current Size (cm) - Width 11.5 3 17 -Current Size (cm) - Depth 0.2 0.2 0.1 -Total Square Cm 94.30 16.5 161.5 -Photo Taken No No -Epithelialization None Present -Tunneling No No -Undermining/Tunneling No No -Circular Undermining No No -Change in Wound Grade/Stage No No -Exudate Amt Large Small Medium -Exudate Type Serosanguineous Serosanguineous Serosanguineous -Wound Margin Distinct, Distinct, Distinct, Outline Outline Outline Attached Attached Attached -Granulation Amt None Present (0 Medium (34-66%) Small (1-33%) %) -Granulation Quality N/A [place] N/A -Slough/Fibrin Yes Yes -Necrosis Amt Large (67-100%) Small (1-33%) Medium (34-66%) -Necrotic Tissue Type Adherent Slough Adherent Slough Adherent Slough -Structure Exposed N/A N/A -Texture ([place]-wound Skin Appearance) Assessed, Assessed, No Abnormality, Friable Scarring Assessed -Moisture ([place]-wound Skin Appearance) Assessed, Assessed, Assessed, Maceration, Maceration Weeping Weeping -Color ([place]-wound Skin Appearance) Assessed, No Abnormality, No Abnormality, Erythema Assessed Assessed -Temperature ([place]-wound Skin No Abnormality No Abnormality Appearance) (Pt Warm) (Pt Warm) -Tenderness on Palpation ([place]-wound No No Skin Appearance) -Ulcer Cleansing Rinsed/ Soap and Water Irrigated with Saline -Foul Odor after Cleansing No No No -Anesthetic Used 4% Lidocaine 4% Lidocaine 4% Lidocaine Solution Solution Solution Lower Limb Edema Present No Right Calf (cm) 40.4 42 39 Right Ankle (cm) 29.7 28 27.5 Left Calf (cm) 41.2 43 39 Left Ankle (cm) 27.8 23 30 07/17/21 08:18 Wound Center Nurse 1 #3 R morris -Combined with other wound -Current Size (cm) - Length 3 -Current Size (cm) - Width 2.4 -Current Size (cm) - Depth 0.1 -Total Square Cm 7.2 -Photo Taken -Tunneling -Undermining/Tunneling -Circular Undermining -Change in Wound Grade/Stage -Exudate Amt Small -Exudate Type Serosanguineous -Wound Margin Distinct, Outline Attached -Granulation Amt Large (67-100%) -Granulation Quality [place] -Slough/Fibrin -Necrosis Amt Small (1-33%) -Necrotic Tissue Type Adherent Slough -Structure Exposed -Texture ([place]-wound Skin Appearance) Assessed, Scarring -Moisture ([place]-wound Skin Appearance) Assessed,Dry/ Scaly -Color ([place]-wound Skin Appearance) No Abnormality, Assessed -Temperature ([place]-wound Skin No Abnormality Appearance) (Pt Warm) -Tenderness on Palpation ([place]-wound No Skin Appearance) -Ulcer Cleansing Soap and Water -Foul Odor after Cleansing No -Anesthetic Used 5% Lidocaine Gel #2 2nd/3rd toe cluster -Combined with other wound -Current Size (cm) - Length -Current Size (cm) - Width -Current Size (cm) - Depth -Total Square Cm -Photo Taken -Tunneling -Undermining/Tunneling -Circular Undermining -Change in Wound Grade/Stage -Exudate Amt -Exudate Type -Wound Margin -Granulation Amt -Granulation Quality -Slough/Fibrin -Necrosis Amt -Necrotic Tissue Type -Structure Exposed -Texture ([place]-wound Skin Appearance) -Moisture ([place]-wound Skin Appearance) -Color ([place]-wound Skin Appearance) -Temperature ([place]-wound Skin Appearance) -Tenderness on Palpation ([place]-wound Skin Appearance) -Ulcer Cleansing -Foul Odor after Cleansing -Anesthetic Used #1 Left morris cluster -Combined with other wound -Current Size (cm) - Length 10.5 -Current Size (cm) - Width 11 -Current Size (cm) - Depth 0.2 -Total Square Cm 115.5 -Photo Taken -Epithelialization -Tunneling -Undermining/Tunneling -Circular Undermining -Change in Wound Grade/Stage -Exudate Amt Medium -Exudate Type Serosanguineous -Wound Margin Distinct, Outline Attached -Granulation Amt Large (67-100%) -Granulation Quality [place] -Slough/Fibrin -Necrosis Amt Small (1-33%) -Necrotic Tissue Type Adherent Slough -Structure Exposed -Texture ([place]-wound Skin Appearance) Assessed, Scarring -Moisture ([place]-wound Skin Appearance) No Abnormality, Assessed -Color ([place]-wound Skin Appearance) No Abnormality, Assessed -Temperature ([place]-wound Skin No Abnormality Appearance) (Pt Warm) -Tenderness on Palpation ([place]-wound No Skin Appearance) -Ulcer Cleansing Soap and Water -Foul Odor after Cleansing -Anesthetic Used 5% Lidocaine Gel Lower Limb Edema Present Right Calf (cm) 39.2 Right Ankle (cm) 26.5 Left Calf (cm) 37.5 Left Ankle (cm) 28.5 WC - Nurse 2 - General Ulcer CM Notes Start: 06/26/21 09:46 Freq: Status: Active Protocol: Activity Type Activity Date Activity User E-Sign Co-Sign Detail Recorded Client Recorded Date Recorded By Document 06/26/21 10:11 PL [id number] 06/26/21 10:15 PL Document 07/03/21 12:30 PL [id number] 07/03/21 12:34 PL Document 07/10/21 08:35 [place] [id number] 07/10/21 08:39 JF 06/26/21 07/03/21 07/10/21 10:11 12:30 08:35 Wound Center Nurse 2 #3 R morris -Time 10:05 10:35 08:35 -Correct Patient Yes Yes Yes -Correct Side, Site, Position Yes Yes Yes -Correct Procedure Yes Yes Yes -Procedure Performed Yes Yes Yes -Type of Procedure Debridement Debridement Debridement -Clinical Debridement Epidermis / Subcutaneous Subcutaneous Dermis -Tissue Removed Epidermis, Subcutaneous Subcutaneous Dermis -Post Debridement (cm) - Length 1.8 2.0 5.0 -Post Debridement (cm) - Width 4.0 3.0 2.8 -Post Debridement (cm) - Depth 0.1 0.1 0.1 -Total Square (Post) (cm) 7.20 6.00 14.00 -Area of Debridement (cm) - Length 0.7 2.0 5.0 -Area of Debridement (cm) - Width 2.0 3.0 2.8 -Total Square (Area) (cm) 1.40 6.00 14.00 -Tunneling No No No -Undermining/Tunneling No No No -Circular Undermining No No No -Wound/Ulcer Outcome Not Healed Not Healed Not Healed -Ulcer Cleansing Rinsed/ Rinsed/ Rinsed/ Irrigated with Irrigated with Irrigated with Saline Saline Saline -Foul Odor after Cleansing No No No -Bioengineered Tissue No No No -Bleeding Controlled with Pressure Pressure Pressure -Treatment Response Procedure Procedure Procedure Tolerated Well Tolerated Well Tolerated Well -Offloading No -Debridement - Open, 1st 20sq cm No -Debridement - Subq, 1st 20sq cm No Yes -Debridement, SubQ, ea addt'l 20sq cm 1 or part thereof #2 2nd/3rd toe cluster -Time 08:37 -Correct Patient Yes -Correct Side, Site, Position Yes -Correct Procedure Yes -Procedure Performed No No Yes -Type of Procedure Debridement -Clinical Debridement Subcutaneous -Tissue Removed Subcutaneous Subcutaneous -Tunneling No -Undermining/Tunneling No -Circular Undermining No -Wound/Ulcer Outcome Not Healed -Ulcer Cleansing Rinsed/ Irrigated with Saline -Foul Odor after Cleansing No -Bioengineered Tissue No -Bleeding Controlled with Pressure -Treatment Response Procedure Tolerated Well -Offloading No -Debridement - Subq, 1st 20sq cm No #1 Left morris cluster -Time 10:05 10:35 08:37 -Correct Patient Yes Yes Yes -Correct Side, Site, Position Yes Yes Yes -Correct Procedure Yes Yes Yes -Procedure Performed Yes Yes Yes -Type of Procedure Debridement Debridement Debridement -Clinical Debridement Epidermis / Subcutaneous Subcutaneous Dermis -Tissue Removed Epidermis, Subcutaneous Subcutaneous Dermis -Post Debridement (cm) - Length 8.2 5.5 7 -Post Debridement (cm) - Width 11.5 3.0 3.1 -Post Debridement (cm) - Depth 0.2 0.2 0.1 -Total Square (Post) (cm) 94.30 16.50 21.7 -Area of Debridement (cm) - Length 4.0 5.5 7 -Area of Debridement (cm) - Width 4.0 3.0 3.1 -Total Square (Area) (cm) 16.00 16.50 21.7 -Tunneling No No No -Undermining/Tunneling No No No -Circular Undermining No No No -Wound/Ulcer Outcome Not Healed Not Healed Not Healed -Ulcer Cleansing Rinsed/ Rinsed/ Rinsed/ Irrigated with Irrigated with Irrigated with Saline Saline Saline -Foul Odor after Cleansing No No No -Bioengineered Tissue No No No -Bleeding Controlled with Pressure Pressure Pressure -Treatment Response Procedure Procedure Procedure Tolerated Well Tolerated Well Tolerated Well -Offloading No -Debridement - Open, 1st 20sq cm Yes -Debridement - Subq, 1st 20sq cm Yes No -Debridement, SubQ, ea addt'l 20sq cm 1 or part thereof Pain Scale: 0-10 Numeric Is Patient Pain Free? Yes Yes Yes WC - Nurse 3 - General Ulcer D/C NN Start: 06/26/21 09:46 Freq: Status: Active Protocol: Activity Type Activity Date Activity User E-Sign Co-Sign Detail Recorded Client Recorded Date Recorded By Document 06/26/21 10:19 DL [id number] 06/26/21 10:21 DL Edit Result 06/26/21 10:19 DL (1) [id number] 06/27/21 07:08 PL Document 07/03/21 10:21 KR [id number] 07/03/21 10:23 KR Document 07/10/21 08:49 AK [id number] 07/10/21 08:53 AK (1) Bilateral - Multi-Layered Wrap Application => Unna Boot - => Bilateral ($) - Unna Boots (Bilat) ($) => 2 Left - Multi-Layered Wrap Application Unna Boot - Left ( => $) => Right - Multi-Layered Wrap Application Unna Boot - Right => ($) => 06/26/21 07/03/21 07/10/21 10:19 10:21 08:49 Wound Care Nurse 3 #3 R morris -Ulcer Cleansing Soap and Water Soap and Water Rinsed/ Irrigated with Saline -Foul Odor after Cleansing No No -Negative Pressure Wound Therapy N/A -Primary Dressing Applied Optilok 8x12 -Optilok 8x12 1 #2 2nd/3rd toe cluster -Ulcer Cleansing Soap and Water Soap and Water -Foul Odor after Cleansing No -Other Dressing No Dressing #1 Left morris cluster -Ulcer Cleansing Soap and Water Soap and Water -Foul Odor after Cleansing No -Primary Dressing Applied Optilok 8x12 -Optilok 8x12 1 Bilateral -Multi-Layered Wrap Application Unna Boot - Unna Boot - Unna Boot - Bilateral ($) Bilateral ($) Bilateral ($) -Unna Boots (Bilat) ($) 2 2 2 Treatment Response Procedure Tolerated Well Pain Scale: 0-10 Numeric Is Patient Pain Free? Yes Yes Yes WC - Visit Discharge Discharge Condition Stable Stable Stable Ambulatory Status Ambulatory Wheelchair Wheelchair Transportation Private Auto Private Auto Private Auto Accompanied by son Medication Reconcilliation completed & Yes provided to patient/care provider Clinical Summary of Care Provided Yes Facility Type Home Health Orders Sent Yes 07/10/21 08:51 Wound Center by Oracio Rasmussen to toe webspace and gauze Initialized on 07/10/21 08:51 - END OF NOTE Assessment/Plan Assessment/Plan (1) Non-pressure chronic ulcer of right calf with fat layer exposed: CODE(S): L97.212 - Non-pressure chronic ulcer of right calf with fat layer exposed (2) Non-pressure chronic ulcer of left calf with fat layer exposed: CODE(S): L97.222 - Non-pressure chronic ulcer of left calf with fat layer exposed (3) Chronic venous stasis dermatitis: CODE(S): I87.2 - Venous insufficiency (chronic) (peripheral) (4) Venous insufficiency: CODE(S): I87.2 - Venous insufficiency (chronic) (peripheral) (5) Dependent edema: CODE(S): R60.9 - Edema, unspecified (6) Chronic lymphedema: (7) Venous hypertension, chronic, with ulcer: CODE(S): I87.319 - Chronic venous hypertension (idiopathic) with ulcer of unspecified lower extremity; L97.909 - Non-pressure chronic ulcer of unspecified part of unspecified lower leg with unspecified severity (8) Leg edema: CODE(S): R60.0 - Localized edema (9) Leg swelling: CODE(S): M79.89 - Other specified soft tissue disorders (10) Immobility: CODE(S): Z74.09 - Other reduced mobility (11) Debility: CODE(S): R53.81 - Other malaise (12) Hiatal hernia: CODE(S): K44.9 - Diaphragmatic hernia without obstruction or gangrene (13) Hypothyroidism: CODE(S): E03.9 - Hypothyroidism, unspecified (14) Chronic kidney disease, stage IV (severe): CODE(S): N18.4 - Chronic kidney disease, stage 4 (severe) (15) Gout: CODE(S): M10.9 - Gout, unspecified (16) Parkinsons disease: CODE(S): G20 - Parkinson's disease (17) Valvular heart disease: CODE(S): I38 - Endocarditis, valve unspecified (18) Diverticulosis large intestine w/o perforation or abscess w/o bleeding: CODE(S): K57.30 - Diverticulosis of large intestine without perforation or abscess without bleeding (19) Diabetes mellitus: CODE(S): E11.9 - Type 2 diabetes mellitus without complications (20) Congestive heart failure: CODE(S): I50.9 - Heart failure, unspecified (21) Obesity (BMI 30-39.9): CODE(S): E66.9 - Obesity, unspecified (22) Venous stasis ulcer: CODE(S): I83.009 - Varicose veins of unspecified lower extremity with ulcer of unspecified site; L97.909 - Non-pressure chronic ulcer of unspecified part of unspecified lower leg with unspecified severity QUALIFIERS: Venous stasis ulcer site: calf Varicose vein presence: without varicose veins Laterality: unspecified laterality Non-pressure ulcer stage: limited to breakdown of skin Qualified Code(s): I87.2 - Venous insufficiency (chronic) (peripheral); L97.201 - Non-pressure chronic ulcer of unspecified calf limited to breakdown of skin (23) Left nephrolithiasis: CODE(S): N20.0 - Calculus of kidney (24) Hydroureter, left: CODE(S): N13.4 - Hydroureter (25) Hydronephrosis, left: CODE(S): N13.30 - Unspecified hydronephrosis (26) HTN (hypertension): CODE(S): I10 - Essential (primary) hypertension (27) HLD (hyperlipidemia): CODE(S): E78.5 - Hyperlipidemia, unspecified (28) Iron deficiency anemia: CODE(S): D50.9 - Iron deficiency anemia, unspecified (29) Morbid obesity: CODE(S): E66.01 - Morbid (severe) obesity due to excess calories PLAN: This is an 86-year-old female who presented with severe swelling, edema, and lymphedema in her lower extremities bilaterally, associated with multiple large superficial ulcerations in her lower extremities, related to the swelling and edema, inactivity, and chronic dependency. She also has multiple pre-existing medical problems. She suffers from debility, and her mobility is extremely limited. As result of the prolonged, chronic dependency of her lower extremities, she has developed multiple large superficial ulceration related to the swelling and edema in her lower extremities. She has chronically slept in a recliner, and spends most of each day in an idle sitting position. The patient is accompanied by her son today, with whom she lives. We have had a lengthy discussion regarding the appropriate measures which are to be implemented in an effort to diminish the swelling and edema in her lower extremities. The patient has been encouraged to elevate her lower extremities to heart level, or higher, as much as possible. She is to attempt to sleep on a flat mattress, or in a position whereby her lower extremities are at heart level, or higher. She is to attempt to elevate her lower extremities as well during daytime hours. Prolonged idle sitting has been discouraged. Activity has been encouraged, though the patient's debility and pre-existing multiple medical problems likely preclude any significant enhancement of her activity level. Weight loss has also been recommended. The patient has been encouraged to optimize her nutritional intake, and to optimize her glycemic control. We are to continue compression to the lower extremities by means of Unna boots, which will be applied twice weekly. This will provide compression to the lower extremities, as well as zinc oxide appropriate to the management of the patient's superficial ulcerations. There appears to be hypertrophic growth of epithelium at the base of the left second toe dorsally. This may be exacerbated by the compression more proximally. We have recommended that this be left undisturbed, and have consulted Podiatry for evaluation and recommendations regarding this area. The patient has home health nursing care already established, and we are to collaborate with home health nursing staff to facilitate the patient's outpatient management. The patient is to return in 1 week for reassessment. Patient has had recent laboratory studies, with results as follows: Sodium 138, potassium 5.1, chloride 104, glucose 73, BUN 44, creatinine 4.25, calcium 7.9, AST 18, alkaline phosphatase 99, total protein 8.1, albumin 2.1, total bilirubin 0.3, ALT 14, white blood count 10.6, hemoglobin 9.4, hematocrit 29.4, platelets 297,000. The patient's pre-existing medical problems will be deferred to the management of her other multi specialty providers. Given the patient's chronic lower extremity swelling, edema, and lymphedema, we have requested pneumatic mechanical compression pumps for use in the lower extremities as an adjunct to the management of her lower extremity swelling and edema. Receipt of the pneumatic compression pumps is awaited. Total time: 29 minutes
== END 2021-07-21 23:59 | disposition home or self-care (01) ==
LOC: WC 09:15
PROVIDERS: PCP Internal Medicine; Visit Provider Surgery
DX: I87.313 Chronic venous hypertension (idiopathic) with ulcer of bilateral lower extremity (principal); G20 Parkinson's disease; L97.222 Non-pressure chronic ulcer of left calf with fat layer exposed; L97.212 Non-pressure chronic ulcer of right calf with fat layer exposed; I13.0 Hypertensive heart and chronic kidney disease with heart failure and stage 1 through stage 4 chronic kidney disease, or unspecified chronic kidney disease; I50.9 Heart failure, unspecified; E11.59 Type 2 diabetes mellitus with other circulatory complications; E11.22 Type 2 diabetes mellitus with diabetic chronic kidney disease; N18.4 Chronic kidney disease, stage 4 (severe); E66.01 Morbid (severe) obesity due to excess calories; Z79.4 Long term (current) use of insulin; I87.2 Venous insufficiency (chronic) (peripheral); M10.9 Gout, unspecified; K44.9 Diaphragmatic hernia without obstruction or gangrene; I89.0 Lymphedema, not elsewhere classified; E78.5 Hyperlipidemia, unspecified; D50.9 Iron deficiency anemia, unspecified; E03.9 Hypothyroidism, unspecified; Z99.3 Dependence on wheelchair; R60.0 Localized edema; M79.89 Other specified soft tissue disorders; Z68.36 Body mass index [BMI] 36.0-36.9, adult; Z79.899 Other long term (current) drug therapy; Z79.890 Hormone replacement therapy
CPT/HCPCS: 11042; 11045; 29580; 97597; 99213; G0463

== ENCOUNTER 2021-07-24 08:00 | Outpatient (RCR) | payer MEDICARE, SELFPAY ==
[2021-07-22 00:41] VITALS: BP 141/76; PULSE 101; TEMP 36.3; BMI 36.4
[2021-07-24 08:17] VITALS: BP 144/73; PULSE 91; RESP 20; TEMP 36.2; BMI 36.4
--- NOTE | 2021-07-24 09:52 | PCM.WC.HP ---
History of Present Illness Date of Service: 07/24/21 Chief Complaint: Severe swelling and edema in the patient's lower extremities, associated with multiple large superficial ulcerations bilaterally. History of Wound: This is an 86-year-old female who presented with severe swelling and edema in both lower extremities, as well as multiple superficial ulcerations in her lower extremities bilaterally. She is accompanied by her son, with whom she lives. It is said that the swelling and ulcerations in the patient's legs have been present for approximately 1 year. The patient has multiple pre-existing medical problems, listed below. She recently required hospitalization, and a subsequent 1 month stay in a [facility] in treatment for an acute urinary tract infection, which exacerbated the swelling, edema, and ulcerations in her lower extremities. The patient's mobility is extremely limited. She ambulates in very limited fashion using a walker. She is largely wheelchair-bound. She sleeps in a recliner. She sits idly throughout the day. [facility] Medical History Chronic kidney disease, stage IV (severe) Congestive heart failure Debility Dependent edema Diabetes mellitus Diverticulosis large intestine w/o perforation or abscess w/o bleeding Gout Hiatal hernia Hypothyroidism Immobility Leg edema Leg swelling Obesity (BMI 30-39.9) Parkinsons disease Valvular heart disease Venous hypertension, chronic, with ulcer Venous stasis ulcer Home Medications Centrum Silver 1 ea PO DAILY 06/20/17 [History Last Taken 04/14/18] atorvastatin 10 mg PO DAILY 06/20/17 [History Last Taken 04/14/18] ferrous sulfate 325 mg PO BID 06/20/17 [History Last Taken 04/14/18] levothyroxine 137 mcg PO DAILY 06/20/17 [History Last Taken 04/14/18] omeprazole 20 mg PO DAILY 06/20/17 [History Last Taken 04/14/18] allopurinol 100 mg PO QHS 04/15/18 [History Last Taken 04/14/18] metoprolol tartrate 25 mg PO BID 04/15/18 [History Last Taken 04/14/18] acetaminophen 1,000 mg PO TID tablet 04/18/18 [Rx Last Taken Unknown] cefdinir 300 mg PO DAILY #3 capsule 04/18/18 [Rx Last Taken Unknown] insulin lispro [Humalog KwikPen Insulin] See Protocol SUBCUT ACHS insuln.pen 04/18/18 [Rx Last Taken Unknown] menthol-zinc oxide [Calmoseptine] 1 applic TOPICAL BID tube 04/18/18 [Rx Last Taken Unknown] nystatin 1 applic TOPICAL TID tube 04/18/18 [Rx Last Taken Unknown] Lactobacillus acidoph-L. bifid cap PO 06/19/21 [History Last Taken Unknown] amlodipine 2.5 06/19/21 [History Last Taken Unknown] famotidine 20 mg PO DAILY 06/19/21 [History Last Taken Unknown] insulin glargine [Lantus Solostar U-100 Insulin] 20 unit SUBCUT BID 06/19/21 [History Last Taken Unknown] Allergy/AdvReac Type Severity Reaction Status Date / Time lisinopril AdvReac Other Verified 07/14/17 13:17 Social History Smoking Status: Never smoker Vital Signs Vital Signs Vital Signs: 07/24/21 08:17 Temperature 97.2 F L Temperature Source Temporal Pulse Rate 91 Respiratory Rate 20 H Blood Pressure 144/73 H Blood Pressure Mean 96 Blood Pressure Source Monitor Weight Weight: 193 lb Body Mass Index (BMI) 36.4 Physical Exam Const alert, oriented x3, no apparent distress and well nourished Constitutional Narrative: The patient is obese. General Appearance: cooperative, comfortable and well developed Orientation / Consciousness: awake, oriented to person, oriented to place and oriented to time HEENT normocephalic and head/scalp atraumatic Head and Scalp: normal to inspection, normocephalic and atraumatic External Ear: external ears normal Eyes PERRL and EOMs intact bilaterally General Eye: normal appearance of both eyes Resp normal respiratory effort, normal air movement, no retractions and no use of accessory muscles Effort and Inspection: able to speak in complete sentences Extremity no calf tenderness General Extremity: Negative for clubbing or cyanosis Skin Wound Narrative: Swelling, edema, and lymphedema persist in the patient's lower extremities bilaterally. However, there has been improvement. Less swelling is noted than in previous weeks. The erythema persists in the gaiter areas bilaterally, which is thought to be inflammatory in nature. There are large patches of sloughing epithelium. Scattered superficial ulcerations are noted in the gaiter areas bilaterally. Neuro oriented x3, CN's II-XII intact bilaterally and moves all extremities Sensorium / Orientation: awake and alert Psych Appearance: grossly normal and appropriate Attitude: calm Activity / Motor Behavior: appropriate eye contact Speech: normal speech Mood & Affect: euthymic mood Thought Process: normal thought process Thought Content: normal thought content Attention / Concentration: attention grossly intact Debridement Note Debridement Note No debridement was completed: No debridement was completed today (Because of the superficial nature of the ulcerations, and the fact that they are generally pink and healthy in appearance, debridement was not performed today.) Post-Debridement Measurements and Additional Note: Post-Debridement Measurements/Treatment - Nurse 1 - General Ulcer Assessment Start: 07/24/21 08:13 Freq: Status: Active Protocol: JAGDISH Activity Type Activity Date Activity User E-Sign Co-Sign Detail Recorded Client Recorded Date Recorded By Document 07/24/21 08:17 COBY [id number] 07/24/21 08:20 COBY 07/24/21 08:17 - Today's Visit Information Type of service Follow-up Visit (Physician/[facility] ) Arrival Mode Wheelchair Transfer Assistance Manual Transfer Assist (Other) x2 Patient Identification Verified (Name & Yes ) Patient Requires Transmission-Based No Precautions Height and Weight Body Mass Index (BMI) 36.4 BMI Classification Obese Vital Signs Temperature (97.8 F-99.1 F) 97.2 F L Temperature Source Temporal Pulse Rate (60-100) 91 Pulse [address] Monitor Respiratory Rate (12-18) 20 H Respiratory rate source Observation Blood Pressure (90/60-120/80) 144/73 H Blood Pressure Mean 96 Source Monitor History Since Last Visit- (Skip if this is Patient's initial visit) Have you changed medications since your No last visit? Any new allergies or adverse reactions No Had a fall/change in ADL's that may No increase risk of falls Signs or symptoms of abuse and/or No neglect since last visit Have you been in the hospital since your No last visit? Has dressing in place as prescribed Yes Has compression in place as prescribed Yes Has offloadiing in place as prescribed N/A Experienced any changes in pain level or No management Pain Scale: 0-10 Numeric Is Patient Pain Free? Yes MELISA - Nurse 1 - General Ulcer Measurement Start: 07/24/21 08:13 Freq: Status: Active Protocol: Activity Type Activity Date Activity User E-Sign Co-Sign Detail Recorded Client Recorded Date Recorded By Document 07/24/21 08:17 COBY [id number] 07/24/21 08:20 KR 07/24/21 08:17 Wound Center Nurse 1 #3 R morris -Current Size (cm) - Length 7 -Current Size (cm) - Width 5.8 -Current Size (cm) - Depth 0.1 -Total Square Cm 40.6 -Photo Taken No -Exudate Amt Small -Exudate Type Serosanguineous -Wound Margin Indistinct, Non -Visible -Granulation Amt Medium (34-66%) -Granulation Quality Gilt Edge -Necrosis Amt Medium (34-66%) -Necrotic Tissue Type Eschar -Structure Exposed N/A -Texture (Loida-wound Skin Appearance) No Abnormality -Moisture (Loida-wound Skin Appearance) Dry/Scaly -Color (Loida-wound Skin Appearance) Hemosiderin Staining -Temperature (Loida-wound Skin No Abnormality Appearance) (Pt Warm) -Tenderness on Palpation (Loida-wound No Skin Appearance) -Ulcer Cleansing Soap and Water -Foul Odor after Cleansing No -Anesthetic Used 4% Lidocaine Solution #1 Left morris cluster -Current Size (cm) - Length 9 -Current Size (cm) - Width 8.5 -Current Size (cm) - Depth 0.1 -Total Square Cm 76.5 -Photo Taken No -Exudate Amt Small -Exudate Type Serosanguineous -Wound Margin Indistinct, Non -Visible -Granulation Amt Medium (34-66%) -Granulation Quality Gilt Edge -Necrosis Amt Medium (34-66%) -Necrotic Tissue Type Eschar -Structure Exposed N/A -Texture (Loida-wound Skin Appearance) No Abnormality -Moisture (Loida-wound Skin Appearance) No Abnormality -Color (Loida-wound Skin Appearance) Hemosiderin Staining -Temperature (Loida-wound Skin No Abnormality Appearance) (Pt Warm) -Tenderness on Palpation (Loida-wound No Skin Appearance) -Ulcer Cleansing Soap and Water -Foul Odor after Cleansing No -Anesthetic Used 4% Lidocaine Solution Right Calf (cm) 41 Right Ankle (cm) 28.5 Right Foot (cm) 40.3 Left Calf (cm) 31 WC - Nurse 3 - General Ulcer D/C NN Start: 07/24/21 08:13 Freq: Status: Active Protocol: Activity Type Activity Date Activity User E-Sign Co-Sign Detail Recorded Client Recorded Date Recorded By Document 07/24/21 09:26 COBY [id number] 07/24/21 09:27 COBY 07/24/21 09:26 Wound Care Nurse 3 #3 R morris -Primary Dressing Applied Optilok 6.5x10 -Optilok 6.5x10 1 #1 Left morris cluster -Primary Dressing Applied Optilok 6.5x10 -Optilok 6.5x10 1 Left -Multi-Layered Wrap Application Unna Boot - Bilateral ($) -Unna Boots (Bilat) ($) 2 Pain Scale: 0-10 Numeric Is Patient Pain Free? Yes WC - Visit Discharge Discharge Condition Stable Ambulatory Status Wheelchair Transportation Private Auto Accompanied by son Assessment/Plan Assessment/Plan (1) Venous insufficiency: CODE(S): I87.2 - Venous insufficiency (chronic) (peripheral) (2) Non-pressure chronic ulcer of left calf with fat layer exposed: CODE(S): L97.222 - Non-pressure chronic ulcer of left calf with fat layer exposed (3) Non-pressure chronic ulcer of right calf with fat layer exposed: CODE(S): L97.212 - Non-pressure chronic ulcer of right calf with fat layer exposed (4) Dependent edema: CODE(S): R60.9 - Edema, unspecified (5) Venous hypertension, chronic, with ulcer: CODE(S): I87.319 - Chronic venous hypertension (idiopathic) with ulcer of unspecified lower extremity; L97.909 - Non-pressure chronic ulcer of unspecified part of unspecified lower leg with unspecified severity (6) Leg swelling: CODE(S): M79.89 - Other specified soft tissue disorders (7) Leg edema: CODE(S): R60.0 - Localized edema (8) Immobility: CODE(S): Z74.09 - Other reduced mobility (9) Debility: CODE(S): R53.81 - Other malaise (10) Hiatal hernia: CODE(S): K44.9 - Diaphragmatic hernia without obstruction or gangrene (11) Hypothyroidism: CODE(S): E03.9 - Hypothyroidism, unspecified (12) Chronic kidney disease, stage IV (severe): CODE(S): N18.4 - Chronic kidney disease, stage 4 (severe) (13) Gout: CODE(S): M10.9 - Gout, unspecified (14) Parkinsons disease: CODE(S): G20 - Parkinson's disease (15) Valvular heart disease: CODE(S): I38 - Endocarditis, valve unspecified (16) Diverticulosis large intestine w/o perforation or abscess w/o bleeding: CODE(S): K57.30 - Diverticulosis of large intestine without perforation or abscess without bleeding (17) Diabetes mellitus: CODE(S): E11.9 - Type 2 diabetes mellitus without complications (18) Congestive heart failure: CODE(S): I50.9 - Heart failure, unspecified (19) Obesity (BMI 30-39.9): CODE(S): E66.9 - Obesity, unspecified (20) Venous stasis ulcer: CODE(S): I83.009 - Varicose veins of unspecified lower extremity with ulcer of unspecified site; L97.909 - Non-pressure chronic ulcer of unspecified part of unspecified lower leg with unspecified severity QUALIFIERS: Venous stasis ulcer site: calf Varicose vein presence: without varicose veins Laterality: unspecified laterality Non-pressure ulcer stage: limited to breakdown of skin Qualified Code(s): I87.2 - Venous insufficiency (chronic) (peripheral); L97.201 - Non-pressure chronic ulcer of unspecified calf limited to breakdown of skin (21) HTN (hypertension): CODE(S): I10 - Essential (primary) hypertension (22) HLD (hyperlipidemia): CODE(S): E78.5 - Hyperlipidemia, unspecified (23) Chronic lymphedema: (24) Morbid obesity: CODE(S): E66.01 - Morbid (severe) obesity due to excess calories (25) Chronic venous stasis dermatitis: CODE(S): I87.2 - Venous insufficiency (chronic) (peripheral) PLAN: This is an 86-year-old female who presented with severe swelling, edema, and lymphedema in her lower extremities bilaterally, associated with multiple large superficial ulcerations in her lower extremities, related to the swelling and edema, inactivity, and chronic dependency. She also has multiple pre-existing medical problems. She suffers from debility, and her mobility is extremely limited. As result of the prolonged, chronic dependency of her lower extremities, she has developed multiple large superficial ulceration related to the swelling and edema in her lower extremities. She has chronically slept in a recliner, and spends most of each day in an idle sitting position. We have had a lengthy discussion regarding the appropriate measures which are to be implemented in an effort to diminish the swelling and edema in her lower extremities. The patient has been encouraged to elevate her lower extremities to heart level, or higher, as much as possible. She is to attempt to sleep on a flat mattress, or in a position whereby her lower extremities are at heart level, or higher. She is to attempt to elevate her lower extremities as well during daytime hours. Prolonged idle sitting has been discouraged. Activity has been encouraged, though the patient's debility and pre-existing multiple medical problems likely preclude any significant enhancement of her activity level. Weight loss has also been recommended. The patient has been encouraged to optimize her nutritional intake, and to optimize her glycemic control. We are to continue compression to the lower extremities by means of Unna boots, which will be applied twice weekly. This will provide compression to the lower extremities, as well as zinc oxide appropriate to the management of the patient's superficial ulcerations. There appears to be hypertrophic growth of epithelium at the base of the left second toe dorsally. This may be exacerbated by the compression more proximally. We have recommended that this be left undisturbed, and have consulted Podiatry for evaluation and recommendations regarding this area. The patient has home health nursing care already established, and we are to collaborate with home health nursing staff to facilitate the patient's outpatient management. The patient is to return in 1 week for reassessment. Patient has had recent laboratory studies, with results as follows: Sodium 138, potassium 5.1, chloride 104, glucose 73, BUN 44, creatinine 4.25, calcium 7.9, AST 18, alkaline phosphatase 99, total protein 8.1, albumin 2.1, total bilirubin 0.3, ALT 14, white blood count 10.6, hemoglobin 9.4, hematocrit 29.4, platelets 297,000. The patient's pre-existing medical problems will be deferred to the management of her other multi specialty providers. Given the patient's chronic lower extremity swelling, edema, and lymphedema, we have requested pneumatic mechanical compression pumps for use in the lower extremities as an adjunct to the management of her lower extremity swelling and edema. Receipt of the pneumatic compression pumps is awaited. Total time: 28 minutes
== END 2021-08-21 23:59 | disposition home or self-care (01) ==
LOC: WC 08:00
PROVIDERS: PCP Internal Medicine; Visit Provider Surgery
DX: I87.313 Chronic venous hypertension (idiopathic) with ulcer of bilateral lower extremity (principal); G20 Parkinson's disease; L97.212 Non-pressure chronic ulcer of right calf with fat layer exposed; L97.222 Non-pressure chronic ulcer of left calf with fat layer exposed; I13.0 Hypertensive heart and chronic kidney disease with heart failure and stage 1 through stage 4 chronic kidney disease, or unspecified chronic kidney disease; I50.9 Heart failure, unspecified; E11.22 Type 2 diabetes mellitus with diabetic chronic kidney disease; E11.59 Type 2 diabetes mellitus with other circulatory complications; N18.4 Chronic kidney disease, stage 4 (severe); E66.01 Morbid (severe) obesity due to excess calories; Z79.4 Long term (current) use of insulin; E78.5 Hyperlipidemia, unspecified; Z99.3 Dependence on wheelchair; E03.9 Hypothyroidism, unspecified; Z74.09 Other reduced mobility; M10.9 Gout, unspecified; I89.0 Lymphedema, not elsewhere classified; K44.9 Diaphragmatic hernia without obstruction or gangrene; Z68.36 Body mass index [BMI] 36.0-36.9, adult; Z79.899 Other long term (current) drug therapy
CPT/HCPCS: 29580; 99213; G0463

== ENCOUNTER → 2021-10-16 | Outpatient (CLI) | payer MEDICARE, SELFPAY ==
--- NOTE | 2021-10-16 12:43 | VDUE_ITS ---
Reason For Study: ESRD Right Arm Left Arm Right Cephalic Vein at the wrist measures Left Cephalic Vein at the wrist measures 0.10 x 0.11 cm. 0.12 x 0.14 cm. Right Cephalic Vein in the forearm measures Left Cephalic Vein in the forearm measures 0.10 x 0.11 cm. 0.15 x 0.15 cm. Right Cephalic Vein below antecub measures Left Cephalic Vein below antecub measures 0.08 x 0.08 cm. 0.19 x 0.20 cm. Right Cephalic Vein above antecub measures Left Cephalic Vein above antecub measures 0.12 x 0.12 cm. 0.29 x 0.29 cm. Right Cephalic Vein mid bicep measures 0.16 Left Cephalic Vein at mid bicep measures x 0.15 cm. 0.28 x 0.29 cm. Right Cephalic Vein at the shoulder measures Left Cephalic Vein at the shoulder measures 0.08 x 0.08 cm. 0.34 x 0.34 cm. Right Basilic Vein at the origin measures Basilic vein at origin measures 0.23 x 0.23 0.32 x 0.34 cm. cm. Right Basilic Vein mid bicep measures 0.28 x Basilic vein at bicep measures 0.26 x 0.25 0.31 cm. cm. Right Basilic Vein above antecub measures Basilic vein above antecub measures 0.21 x 0.24 x 0.26 cm. 0.20 cm. Right Brachial artery 1 measures 0.28 x 0.28 Left Brachial artery measures 0.41 x 0.40 cm cm with a velocity of 90.2 cm/sec. with a velocity of 64.3 cm/sec. Right Brachial artery 2 measures 0.26 x 0.25 Left Radial artery measures 0.17 x 0.17 cm cm with a velocity of 59.4 cm/sec. with a velocity of 75.1 cm/sec. Right Radial artery measures 0.14 x 0.13 cm with a velocity of 64.3 cm/sec. VL/Dialysis Vein Map PRE-OP BILAT Interpretation Summary Patent and compressible bilateral upper extremity cephalic and basilic veins wi th dimensions as noted. Right upper extremity cephalic vein appears diminutive throughout. Left upper extremity forearm cephalic vein appears diminutive. Dual right brachial arteries noted. Patent though small bilateral radial arteries Ordering Physician: Diego Bernstein Referring Physician: Ashlie Bull Performed By: Clara Olivas RVT ?
== END | disposition home or self-care (01) ==
PROVIDERS: PCP Internal Medicine; Referring Provider Student in an Organized Health Care Education/Training Program; Visit Provider Student in an Organized Health Care Education/Training Program
DX: Z01.818 Encounter for other preprocedural examination (principal); N18.6 End stage renal disease
CPT/HCPCS: 93985

== ENCOUNTER 2021-11-17 18:43 | Inpatient (IN) | payer MEDICARE, MEDICAID, SELFPAY ==
[2021-11-17 18:18] VITALS: BMI 34.1
[2021-11-17 18:21] VITALS: BP 143/46; PULSE 101; RESP 18; TEMP 37.8; O2SAT 97
[2021-11-17 18:59] VITALS: PULSE 100
[2021-11-17 19:03] VITALS: O2SAT 97
--- NOTE | 2021-11-17 19:18 | PCM.HP.STD ---
HPI - General General Date of Admission: 11/17/21 Date of Service: 11/17/21 Chief Complaint: Generalized weakness HPI Narrative ARLETTE RIVERA, is a 86 F who presented to the emergency department at [facility] on 11/17/2021 with a chief complaint of generalized weakness. Per her who provides most of her history she has noted progressively worsening weakness since early this past week starting approximately Friday or Friday. She had a couple of falls, most recently on her right side for which she went to the emergency department. She did hit her head. CT was negative at that time he reports and multiple x-rays were done and were negative for fracture. He states she still having pain on that right side but seems to be improving with that. He states she was so weak today he tried to transfer to the bathroom but she was unable to do so and slid to the ground so he took her to the emergency department. She has chronic lower extremity venous stasis for which they use Hadley bandages for. She does not follow-up with wound care. He has not noted any fever or chills but states she is cold on and off which is a chronic issue for her. She is had no nausea, vomiting, diarrhea, focal weakness, tingling or numbness. She has had a bit of a cough that is dry and nonproductive in nature that started in the last 48 hours. She still urinates and reported dysuria and he states she has had some more frequent urination than baseline. In the emergency department her temperature was 101.2, heart rate 112, respiratory 20, blood pressure was 128/65, and the patient was 89% on room air. She was placed on 2 L nasal cannula and improved to 94% on 2 L. Her CBC was overall unremarkable other than a mild stable chronic anemia likely related to her chronic renal disease. Her BMP showed chronic hyponatremia with a BUN and creatinine of 26 and 4.68 respectively. Her blood glucose was 199. Her initial lactate was 3 and upon repeat was 2.0. Her initial troponin was 8.6 and upon repeat was 12.9. Her EKG was unremarkable for any signs of acute ischemia but did show a right bundle branch block that appears to be chronic. Flu a and B and COVID testing were negative. Her UA was consistent with urinary tract infection. She has dialysis on Friday and Friday and completed her last dialysis session on Friday without any difficulty. Blood and urine cultures were obtained prior to transfer and initiation of antibiotics. At the outside hospital she was started on Zosyn and transfer was requested as they do not do dialysis at their institution. Her primary tool dispatcher is Dr. Kurtz. [facility] Medical History Arthritis Chronic kidney disease, stage IV (severe) Congestive heart failure Debility Dependent edema Diabetes mellitus Diverticulosis large intestine w/o perforation or abscess w/o bleeding Easy bruising Gastric reflux Gout Hiatal hernia High cholesterol History of atrial fibrillation History of CHF (congestive heart failure) History of echocardiogram History of edema History of renal dialysis History of renal disease History of stress test Hx of vaginal delivery Hypertension Hypothyroidism Immobility Injury of head and neck Insulin dependent diabetes mellitus Kidney stone Leg edema Leg swelling Non-smoker Obesity (BMI 30-39.9) On home oxygen therapy Parkinson's disease Parkinsons disease Post-menopausal Skin tear Thyroid disease Uses wheelchair Valvular heart disease Venous hypertension, chronic, with ulcer Venous stasis ulcer Walker as ambulation aid Wears dentures Wears glasses Home Medications dzdlvaux-ucq-qvocx acid 0.4 mg-lycopene 300 mcg-lutein 250 mcg tablet (Centrum Silver) 1 ea PO DAILY SUPPLEMENT 06/20/17 [History Last Taken 04/14/18] allopurinol 100 mg tablet 100 mg PO QHS gout 04/15/18 [History Last Taken 04/14/18] acetaminophen 500 mg tablet 1,000 mg PO TID 04/18/18 [Rx Last Taken Unknown] insulin lispro 100 unit/mL subcutaneous pen (Humalog KwikPen (U-100) Insulin) See Protocol subcut ACHS 04/18/18 [Rx Last Taken Unknown] Lactobacillus acidophilus-Lactbacillus bifidus 1 billion cell capsule 1 cap PO DAILY 06/19/21 [History Last Taken Unknown] famotidine 20 mg tablet 20 mg PO DAILY 06/19/21 [History Last Taken Unknown] atorvastatin 10 mg tablet 20 mg PO DAILY cholesterol 11/06/21 [History Last Taken Unknown] insulin glargine 100 unit/mL (3 mL) subcutaneous pen (Lantus Solostar U-100 Insulin) 12 unit subcut QPM 11/06/21 [History Last Taken Unknown] levothyroxine 137 mcg tablet 150 mcg PO DAILY thyroid 11/06/21 [History Last Taken Unknown] metoprolol tartrate 50 mg tablet 12.5 mg PO DAILY heart rate 11/06/21 [History Last Taken Unknown] Allergy/AdvReac Type Severity Reaction Status Date / Time HADLEY Inhibitors AdvReac Other Verified 11/15/21 10:21 amitriptyline [From Elavil] AdvReac Other Verified 11/15/21 10:21 ciprofloxacin [From Cipro] AdvReac Other Verified 11/15/21 10:21 lisinopril AdvReac Other Verified 11/15/21 10:21 Family History Son Diabetes Hypertension Surgical History Hx of colonoscopy Hx of lithotripsy Social History (Updated 11/17/21 @ 19:[address] Lore Blanco DO) household members: spouse housing: house Smoking Status: Never smoker alcohol intake: never substance use type: does not use ROS Constitutional Constitutional: Reports chills, fatigue, fever(s), malaise and weakness; Denies anorexia, change in weight, night sweats or other Eyes Eyes: Denies blurry vision, change in eye color, change in vision, discharge from eye(s), double vision, erythema, eye pain, loss of vision or other ENT HEENT: Denies abnormal hearing, dysphagia, ear pain, epistaxis, headache(s), hearing loss, nasal congestion, nasal discharge, post nasal drip, sinus pressure, sore throat or other Cardiovascular Cardiovascular: Denies chest pain, claudication, dyspnea on exertion, edema, lightheadedness, orthopnea, palpitations, paroxysmal nocturnal dyspnea, rapid heart rate, syncope or other Respiratory/Chest Respiratory/Chest: Reports cough, dyspnea and shortness of breath with exertion; Denies excessive phlegm production, hemoptysis, productive cough, shortness of breath at rest, wheezing or other Gastrointestinal Gastrointestinal: Denies abdominal pain, coffee ground emesis, constipation, diarrhea, dyspepsia, hematemesis, hematochezia, loose stools, melena, nausea, vomiting or other Genitourinary Genitourinary: Reports burning urination and urinary frequency; Denies difficulty urinating, dysuria, hematuria, nocturia, urinary hesitancy, urinary incontinence, urinary urgency or other Musculoskeletal Musculoskeletal: Reports arthralgias, joint pain, myalgias and neck pain; Denies back pain, joint stiffness, joint swelling or other Neurologic Neurologic: Denies abnormal gait, abnormal speech, confusion, disequilibrium, dizziness, focal weakness, headache(s), numbness, paresthesias, seizure-like activity, seizures, syncope, tingling, tremor(s) or other Psychiatric Psychiatric: Denies anxiety, depression, homicidal ideation, suicidal ideation or other Endocrine Endocrinology: Denies change in body appearance, cold intolerance, excessive sweating, heat intolerance, polydipsia, polyuria or other Hematologic/Lymphatic Hematologic/Lymphatic: Denies anemia, easy bleeding, easy bruising, lymphadenopathy or other Allergic/Immunologic Allergic/Immunologic: Denies rhinitis, hives, eczemia, asthma or other Vital Signs Vital Signs Vital Signs: 11/17/21 18:21 11/17/21 19:03 Temperature 100.1 F H Temperature Source Oral Pulse Rate 101 H Respiratory Rate 18 Blood Pressure 143/46 H Blood Pressure Mean 78 Blood Pressure Source Monitor Blood Pressure Position Semi-Fowlers Blood Pressure Location Right Arm Pulse Ox 97 97 Oxygen Delivery Method Nasal Cannula Nasal Cannula Oxygen Flow Rate (L/min) 2 2 Weight Weight: 82 kg Body Mass Index (BMI) 34.1 Physical Exam Const alert, oriented x3 and well nourished Constitutional Narrative: Elderly white female sitting up in bed, at bedside, patient appears older than stated age, nursing at bedside, patient appears sick but nontoxic General Appearance: cooperative HEENT normocephalic and moist oral mucous membranes HEENT Narrative: Laceration right side of parietal area-does not appear to be deep and closed with dried blood in scalp, mildly hard of hearing, Mallampati is 3, no thrush Eyes PERRL, EOMs intact bilaterally and conjunctivae normal Eyes Narrative: No scleral icterus Neck no lymphadenopathy, supple, no JVD and no carotid bruits Neck Narrative: Neck is short and thick, trachea midline, no thyroid enlargement Resp No normal respiratory effort, No no retractions, No no use of accessory muscles and No clear to auscultation bilaterally Resp Narrative: Diffusely diminished but clear Auscultation: Negative for crackles, rales, rhonchi or wheezes Cardio regular rate, regular rhythm, S1 normal heart sound, S2 normal heart sound, no murmurs, no rub, no gallops, no clicks and no JVD GI normal to inspection, nondistended, normoactive bowel sounds, soft to palpation and non-tender Extremity Extremity Narrative: Bilateral lower extremity edema that appears to be chronic, venous stasis changes noted, no cyanosis or clubbing, severe onychomycosis and macerated tissue between toes Skin skin turgor normal, no jaundice, no petechiae and no mottling Skin Narrative: Macerated tissue between toes bilateral feet, right lower leg with very superficial wound on the medial ankle just above the malleolus, scattered wounds on bilateral lower extremities with severely dry skin, tunneled dialysis catheter left chest with no drainage or tenderness/erythema Neuro oriented x3, CN's II-XII intact bilaterally, moves all extremities and no focal motor deficits Neuro Narrative: Mild tremor noted of lip and right hand- states this is chronic Sensorium / Orientation: awake, alert, oriented to person, oriented to place and oriented to time Speech: speech normal Psych Psych Narrative: Affect is flattened mood seems depressed Assessment & Plan Assessment/Plan (1) Open wound of both lower extremities: (2) Lactic acidosis: (3) Hypoxia: (4) Fever: (5) Complicated urinary tract infection: (6) Debility: PLAN: Plan Complicated urinary tract infection -Patient with history of nephrolithiasis -Check renal ultrasound -Cover with Zosyn -Blood and urine cultures pending at outside hospital--> will follow in clinisync Hypoxia -Mild nonproductive cough -Patient currently requiring 2 L but not oxygen dependent at baseline -COVID and flu negative -Troponin normal -EKG unremarkable -We will check strep pneumo and Legionella antigens -Sputum culture if possible -Antibiotics as above Fever -Likely to above -As needed or Tylenol Lactic acidosis -3.0 on presentation at outside facility with repeat at 2.0 -Resolved Debility with recent falls -PT/OT consultation -Generalized weakness suspect related to acute illness -X-rays performed at outside facility were negative for any acute fractures -May need placement prior to discharge Chronic bilateral lower extremity venous stasis with wounds -Continue Hadley bandages -Consult wound management Chronic anemia secondary to end-stage renal disease -Counts appear to be stable -Repeat CBC in a.m. End-stage renal disease -Continue phosphate binders -Consult nephrology -Friday dialysis -Patient follows with Dr. Kurtz as an outpatient History of gout -Continue allopurinol Hyperlipidemia -Continue atorvastatin GERD -Continue famotidine DM-2 -Continue Lantus 12 units at at bedtime -Continue sliding scale Hypothyroidism -Check TSH -Continue levothyroxine 150 mcg daily Hypertension -Continue metoprolol 12.5 mg p.o. twice daily Obesity -Complicates treatment, prognosis, outcomes DVT prophylaxis -Heparin 3 times daily CODE STATUS -Full code is verified with the and patient upon admission -I was told prior to transfer that she was DNR [facility] however I verified CODE STATUS with them upon admission Charges/Coding Visit Charges Inpatient E&M: 36395 Init Hosp L3
--- NOTE | 2021-11-17 19:42 | RAD_ITS ---
STUDY: X-RAY CHEST REASON FOR EXAM: Female, 86 years old. hypoxia TECHNIQUE: AP COMPARISON: 04/14/2018 FINDINGS: EKG leads project over the chest. Left jugular dialysis catheter with tip overlying the upper right atrium. The lungs are clear and expanded. There is no demonstrated pleural abnormality. Normal size heart. Normal mediastinum and rachel. Normal visualized pulmonary arteries. There is atherosclerotic calcification of the aortic arch with tortuosity. There is demineralization of the osseous structures. Normal visualized ribs, clavicles, and shoulders. There is no demonstrated abnormality of the visualized soft tissue structures of the upper abdomen. RAD/Chest 1 View (Portable) IMPRESSION: Nonacute portable x-ray examination of the chest. Electronically Signed: Devon Fernandez MD ([place]) at 19:59 EDT ,
[2021-11-17 22:30] VITALS: BP 114/53; PULSE 97; RESP 18; TEMP 37.1; O2SAT 98
[2021-11-17] MEDS: Insulin Glargine-YFGN 100 UNIT/ML Pen 12 UNIT SC (22:43)
[2021-11-17] MEDS: Heparin Injection (Vial) 5,000 UNIT/ML VIAL 5000 UNIT SC (22:49)
[2021-11-17] MEDS: Atorvastatin Calcium 20 MG Tablet PO (22:55)
[2021-11-17] MEDS: Allopurinol 100 MG Tablet PO (22:55)
[2021-11-18] VITALS (15 sets, daily range): BP systolic 100–123; BP diastolic 41–56; PULSE 58–119; RESP 12–18; TEMP 36.3–37.3; O2SAT 89–99
[2021-11-18 00:45] LABS: Bedside Glucose 185 mg/dL (74-106)
[2021-11-18 04:53] LABS: Absolute Lymphocyte Count 0.57 X10^3/uL (0.83-4.51); Absolute Neutrophil Count 8.3 X10^3/uL (2.0-7.7); Basophil# 0.05 X10^3/uL; Basophil% 0.5 % (0-1); Eosinophil# 0.01 X10^3/uL; Eosinophils% 0.1 % (0-5); Hematocrit 28.2 % (37-47); Hemoglobin 9.1 g/dL (12.0-15.0); Lymphocyte # 0.57 X10^3/ul (0.83-4.51); Lymphocyte % 5.7 % (19-41); Mean Corp Hgb Conc 32.3 g/dL (32-36); Mean Corpuscular Hgb 32.7 pg (27.0-32.0); Mean Corpuscular Volume 101.4 fL (81-99); Mean Platelet Vol. 9.6 fl (6.2-12.0); Monocyte# 0.88 X10^3/uL; Monocyte% 8.8 % (0-10); NRBC Flagged by Analyzer 0 % (0-5); Neutrophil # 8.28 X10^3/uL (2.7-7.7); Neutrophil % 83.3 % (47-70); POSITIVE DIFFERENTIAL YES; Platelet Count 195 K/mm3 (150-450); RBC Distribution Width CV 14.7 % (11.6-14.6); RBC Distribution Width SD 54.9 fl (35.1-43.9); Red Blood Count 2.78 M/mm3 (4.2-5.4)
[2021-11-18 05:06] LABS: Differential Indicated SCAN CRITERIA MET
[2021-11-18] MEDS: Heparin Injection (Vial) 5,000 UNIT/ML VIAL 5000 UNIT SC ×3 (05:14→21:33)
[2021-11-18] MEDS: Levothyroxine 150 MCG Tablet PO (05:14)
[2021-11-18 05:29] LABS: ALB/GLOB Ratio 0.4 RATIO (0.9-2.4); AST(SGOT) 24 U/L (15-37); Alanine Aminotransfer ALT/SGPT 16 U/L (13-56); Albumin, Serum 1.7 g/dL (3.2-5.0); Alkaline Phosphatase 111 U/L (45-117); Anion Gap 10 (5-15); BUN 31 mg/dL (7-18); Chloride 100 mmol/L (98-107); Creatinine, Serum 5.15 mg/dL (0.55-1.02); EST Glomerular Filtration Rate 8 mL/min (>60); Est Glom Filt Rate - Afr Amer 10 mL/min (>60); Estimated Creatinine Clearance 5.92 ml/min; Globulin 4.8 g/dL (2.2-4.2); Glucose 120 mg/dL (74-106); Magnesium 1.5 mg/dL (1.6-2.6); Phosphorus 2.6 mg/dL (2.5-4.9); Protein, Total 6.5 g/dL (6.4-8.2); Sodium Level 135 mmol/L (136-145); Thyroid Stim Hormone (TSH) 0.04 uIU/mL (0.358-3.74)
[2021-11-18 05:41] LABS: Differential Comment SCANNED
[2021-11-18 06:56] LABS: Bedside Glucose 117 mg/dL (74-106)
--- NOTE | 2021-11-18 08:34 | NURSING ---
Addendum entered by Maite See 11/18/21 09:47: Dr Blanco notified Original Note: Received call from [facility] regarding positive blood culture of gram positive cocci and that pt was given zosyn 3.375 in [place] ED prior to transfer to [facility].
[2021-11-18] MEDS: Acetaminophen 325 MG Tablet 650 MG PO (10:27)
[2021-11-18] MEDS: Metoprolol Tartrate 25 MG Tablet 12.5 MG PO (10:28)
[2021-11-18] MEDS: Famotidine 20 MG Tablet PO (10:28)
[2021-11-18] MEDS: Insulin Lispro 100 UNIT/ML INSULN.PEN SC (11:33)
[2021-11-18 12:15] LABS: Bedside Glucose 185 mg/dL (74-106)
--- NOTE | 2021-11-18 13:57 | PN.HOSP_ITS ---
Subjective Subjective States she slept well overnight. Still having some pain on the right side of her body related to her recent falls. Nursing is at the bedside and states that they are getting ready to give her some medication. No significant issues overnight. I have requested culture results from [facility] as they are not available in clinisync. Objective Data Objective Data Vital Signs: Vital Signs Temp Pulse Resp BP Pulse Ox O2 Del Method O2 Flow Rate 98.0 F 82 16 100/41 L 94 Nasal Cannula 2 11/18/21 10:19 11/18/21 10:28 11/18/21 10:19 11/18/21 10:28 11/18/21 10:34 11/18/21 10:34 11/18/21 10:34 Oxygen Flow Rate (L/min) 2 Oxygen Delivery Method Nasal Cannula Weight: 79.9 kg Body Mass Index (BMI) 34.1 Intake & Output: Intake and Output for Last 24 Hours 11/16/21 11/17/21 11/18/21 23:59 23:59 23:59 Intake Total 350 / 350 Balance 350 / 350 Lab / Micro Data Result Diagrams: 11/18/21 04:15 11/18/21 04:15 Labs: Laboratory Results - last 24 hr 11/17/21 22:27: POC Glucose 185 H 11/18/21 04:15: WBC 10.0, RBC 2.78 L, Hgb 9.1 L, Hct 28.2 L, MCV 101.4 H, MCH 32.7 H, MCHC 32.3, RDW Std Deviation 54.9 H, RDW Coeff of Lisy 14.7 H, Plt Count 195, MPV 9.6, Immature Gran % (Auto) 1.600 H, Neut % (Auto) 83.3 H, Lymph % (A uto) 5.7 L, [place] % (Auto) 8.8, Eos % (Auto) 0.1, Baso % (Auto) 0.5, Absolute Neuts (auto) 8.3 H, Absolute Lymphs (auto) 0.57 L, Nucleated RBC % 0, Differential Comment SCANNED 11/18/21 04:15: Sodium 135 L, Potassium 4.0, Chloride 100, Carbon Dioxide 25.0, Anion Gap 10, BUN 31 H, Creatinine 5.15 H, Estim Creat Clear Calc 5.92, Est GFR (MDRD) Af Amer 10 L, Est GFR (MDRD) Non-Af 8 L, BUN/Creatinine Ratio 6.0 L, Glucose 120 H, Calcium 8.0 L, Phosphorus 2.6, Magnesium 1.5 L, Total Bilirubin 0.40, AST 24, ALT 16, Alkaline Phosphatase 111, Total Protein 6.5, Albumin 1.7 L , Globulin 4.8 H, Albumin/Globulin Ratio 0.4 L, TSH 0.04 L 11/18/21 06:34: POC Glucose 117 H 11/18/21 11:29: POC Glucose 185 H Radiography Diagnostic Testing: Radiology Impression Chest X-Ray 11/17/21 19:42 IMPRESSION: Nonacute portable x-ray examination of the chest. Electronically Signed: Devon Fernandez MD ([place]oks) at 19:59 EDT Reading Location ID and State: [facility] / [place] , Service support , Physical Exam Const alert, oriented x3 and well nourished Constitutional Narrative: Elderly white female sitting up in bed, at bedside, patient appears older than stated age, nursing at bedside, patient appears sick but nontoxic, patient keeps eyes closed pretty consistently but converses normally. states she does this at home General Appearance: cooperative HEENT normocephalic and moist oral mucous membranes HEENT Narrative: Small laceration noted on the frontoparietal area of the right side of her head, this is not deep or bleeding, shows no signs of infection, Mallampati 3-4, no thrush, dentition poor Resp normal respiratory effort, no retractions, no use of accessory muscles and clear to auscultation bilaterally Resp Narrative: Diffusely diminished but clear Auscultation: Negative for crackles, rales, rhonchi or wheezes Cardio regular rate, regular rhythm, S1 normal heart sound, S2 normal heart sound, no murmurs, no rub, no gallops, no clicks and no JVD GI normal to inspection, nondistended, normoactive bowel sounds, soft to palpation and non-tender Extremity Extremity Narrative: Bilateral lower extremity edema that appears to be chronic, venous stasis changes noted, no cyanosis or clubbing, severe onychomycosis with nails falling off and macerated tissue between toes Skin skin turgor normal, no jaundice, no petechiae and no mottling Skin Narrative: Macerated tissue between toes bilateral feet, right lower leg with very superficial wound on the medial ankle just above the malleolus, scattered wounds on bilateral lower extremities with severely dry skin, tunneled dialysis catheter left chest with no drainage or tenderness/erythema--> catheter is not sutured in place Neuro oriented x3, CN's II-XII intact bilaterally, moves all extremities and no focal motor deficits Neuro Narrative: Mild tremor noted of lip and right hand- states this is chronic Sensorium / Orientation: awake, alert, oriented to person, oriented to place and oriented to time Speech: speech normal Assessment & Plan Assessment/Plan (1) Open wound of both lower extremities: (2) Lactic acidosis: (3) Hypoxia: (4) Fever: (5) Complicated urinary tract infection: (6) Debility: (7) Abnormal results of thyroid function studies: (8) Hypomagnesemia: PLAN: Plan Complicated urinary tract infection -Patient with history of nephrolithiasis -Renal ultrasound pending for tomorrow -Continue Zosyn and add vancomycin as it was ported that her blood cultures at outside facility had gram-positive cocci -Blood and urine cultures pending at outside hospital--> will follow in clinisync -Cultures from outside facility are pending and requested to be faxed Possible bacteremia -Outside hospital called this morning and said she had gram-positive on her cultures -I have asked for those cultures to be faxed to us as they are not currently available in clinisync -We will continue Zosyn and add vancomycin until clear what cultures look like Hypoxia -Mild nonproductive cough -Patient currently requiring 2 L but not oxygen dependent at baseline -Wean as able -COVID and flu negative -Troponin normal -EKG unremarkable -We will check strep pneumo and Legionella antigens--> patient does make urine -Sputum culture if possible -Chest x-ray is unremarkable -Antibiotics as above Hypomagnesemia -Magnesium bolus given -Repeat mag in a.m. Abnormal thyroid function studies -TSH 0.04 -Check free T4 -Patient is on levothyroxine at baseline -Suspect euthyroid sick Fever -Likely to above -T-max since admission was 100.1 -As needed or Tylenol Lactic acidosis -3.0 on presentation at outside facility with repeat at 2.0 -Resolved Debility with recent falls -PT/OT consultation -Generalized weakness suspect related to acute illness -X-rays performed at outside facility were negative for any acute fractures -May need placement prior to discharge -Continue medications for pain management Chronic bilateral lower extremity venous stasis with wounds -Continue Hadley bandages -Consult wound management Chronic anemia secondary to end-stage renal disease -Counts appear to be stable -Repeat CBC in a.m. End-stage renal disease -Continue phosphate binders -Consult nephrology -Friday dialysis -Patient follows with Dr. Kurtz as an outpatient History of gout -Continue allopurinol Hyperlipidemia -Continue atorvastatin GERD -Continue famotidine DM-2 -Continue Lantus 12 units at at bedtime -Continue sliding scale -Accu-Cheks as ordered -A.m. fasting blood sugars 120 Hypothyroidism -Check TSH -Continue levothyroxine 150 mcg daily Hypertension -Continue metoprolol 12.5 mg p.o. twice daily Obesity -Complicates treatment, prognosis, outcomes DVT prophylaxis -Heparin 3 times daily CODE STATUS -Full code is verified with the and patient upon admission Charges/Coding Visit Charges Inpatient E&M: 26699 Subs Hosp L2
--- NOTE | 2021-11-18 14:24 | NURSING ---
Call placed to [place] lab to request urine culture and blood culture results be faxed to PCU per Dr Blanco. Spoke with Miguelito, will fax results over.
--- NOTE | 2021-11-18 16:05 | PN.RENAL_ITS ---
Subjective Subjective Consult received, full consult to follow -chart reviewed -hx of ESRD on HD MWF -last HD on Friday -will arrange for HD tomorrow. thanks please call [phone] with any concerns Objective Data Objective Data Vital Signs: Vital Signs Temp Pulse Resp BP Pulse Ox O2 Del Method O2 Flow Rate 97.4 F L 62 12 102/45 L 98 Nasal Cannula 2 11/18/21 15:02 11/18/21 15:02 11/18/21 15:02 11/18/21 15:02 11/18/21 15:02 11/18/21 15:02 11/18/21 15:02 Oxygen Flow Rate (L/min) 2 Oxygen Delivery Method Nasal Cannula Weight: 79.9 kg Body Mass Index (BMI) 34.1 Intake & Output: Intake and Output for Last 24 Hours 11/16/21 11/17/21 11/18/21 23:59 23:59 23:59 Intake Total 454 / 454 Balance 454 / 454 Lab / Micro Data Result Diagrams: 11/18/21 04:15 11/18/21 04:15 Labs: Laboratory Results - last 24 hr 11/17/21 22:27: POC Glucose 185 H 11/18/21 04:15: WBC 10.0, RBC 2.78 L, Hgb 9.1 L, Hct 28.2 L, MCV 101.4 H, MCH 32.7 H, MCHC 32.3, RDW Std Deviation 54.9 H, RDW Coeff of Lisy 14.7 H, Plt Count 195, MPV 9.6, Immature Gran % (Auto) 1.600 H, Neut % (Auto) 83.3 H, Lymph % (Auto) 5.7 L, [place] % (Auto) 8.8, Eos % (Auto) 0.1, Baso % (Auto) 0.5, Absolute Neuts (auto) 8.3 H, Absolute Lymphs (auto) 0.57 L, Nucleated RBC % 0, Differential Comment SCANNED 11/18/21 04:15: Sodium 135 L, Potassium 4.0, Chloride 100, Carbon Dioxide 25.0, Anion Gap 10, BUN 31 H, Creatinine 5.15 H, Estim Creat Clear Calc 5.92, Est GFR (MDRD) Af Amer 10 L, Est GFR (MDRD) Non-Af 8 L, BUN/Creatinine Ratio 6.0 L, Glucose 120 H, Calcium 8.0 L, Phosphorus 2.6, Magnesium 1.5 L, Total Bilirubin 0.40, AST 24, ALT 16, Alkaline Phosphatase 111, Total Protein 6.5, Albumin 1.7 L , Globulin 4.8 H, Albumin/Globulin Ratio 0.4 L, TSH 0.04 L 11/18/21 06:34: POC Glucose 117 H 11/18/21 11:29: POC Glucose 185 H Radiography Diagnostic Testing: Radiology Impression Chest X-Ray 11/17/21 19:42 IMPRESSION: Nonacute portable x-ray examination of the chest. Electronically Signed: Devon Fernnadez MD (Brooks) at 19:59 EDT ,
[2021-11-18] MEDS: Juven (unflavored) Packet 1 PACKET PO (16:13)
[2021-11-18 16:45] LABS: Bedside Glucose 116 mg/dL (74-106)
--- NOTE | 2021-11-18 18:33 | PCM.RX.CS ---
Consult Pharmacy has been consulted to manage selected antiobiotic: Vancomycin Suspected Infection: Skin/Soft tissue Prior Doses of Antibiotics Received/Current Regimen: Received 1250mg iv x 1 as initial dose (~15mg/kg). Labs: Sodium 135 mmol/L (136-145) L 11/18/21 04:15 Potassium 4.0 mmol/L (3.5-5.1) 11/18/21 04:15 Chloride 100 mmol/L (98-107) 11/18/21 04:15 Carbon Dioxide 25.0 mmol/L (21.0-32.0) 11/18/21 04:15 Anion Gap 10 (5-15) 11/18/21 04:15 BUN 31 mg/dL (7-18) H 11/18/21 04:15 Creatinine 5.15 mg/dL (0.55-1.02) H 11/18/21 04:15 Est GFR (MDRD) Af Amer 10 mL/min (>60) L 11/18/21 04:15 Est GFR (MDRD) Non-Af 8 mL/min (>60) L 11/18/21 04:15 BUN/Creatinine Ratio 6.0 RATIO (10-20) L 11/18/21 04:15 Glucose 120 mg/dL (74-106) H 11/18/21 04:15 Weight used for dosin.9 kg Estimated Creatinine Clearance: ~6ml/min Goal Trough: 15-20 mcg/mL Pharmacy Plan for Drug Dosing: Patient is M-W-F dialysis. Dosing and vancomycin level monitoring to be determined by dialysis sessions. Pharmacy Service will continue to monitor and adjust dosing as required. Follow-Up Labs: Trough Vancomycin
[2021-11-18] MEDS: Allopurinol 100 MG Tablet PO (21:33)
[2021-11-18] MEDS: Insulin Glargine-YFGN 100 UNIT/ML Pen 12 UNIT SC (21:33)
[2021-11-18] MEDS: Atorvastatin Calcium 20 MG Tablet PO (21:33)
[2021-11-18 22:21] LABS: Bedside Glucose 108 mg/dL (74-106)
[2021-11-19] VITALS (38 sets, daily range): BP systolic 80–116; BP diastolic 42–70; PULSE 54–165; RESP 16–32; TEMP 36.6–38.8; O2SAT 92–100
[2021-11-19] MEDS: Acetaminophen 325 MG Tablet 650 MG PO (00:55)
[2021-11-19] MEDS: Ondansetron 4 MG/2 ML Vial IV (00:55)
--- NOTE | 2021-11-19 03:00 | EKG12_ITS ---
Test Reason : TACHY Blood Pressure : / mmHG Vent. Rate : 161 BPM Atrial Rate : 000 BPM P-R Int : 000 ms QRS Dur : 134 ms QT Int : 282 ms P-R-T Axes : 000 147 -08 degrees QTc Int : 461 ms Atrial fibrillation with rapid ventricular response with premature ventricular or aberrantly conducte d complexes Right bundle branch block Left posterior fascicular block Bifascicular block Cannot rule out Inferior infarct cannot be excluded Abnormal ECG Confirmed by NOHEMI SINCLAIR, NINO ([id number]), scientific publications editor GALLITO BYNUM ([id number]) on 11/20/2021 7:57:22 AM Referred By: ANDRIA Confirmed By:NINO SONG MD
--- NOTE | 2021-11-19 03:17 | PCM.HOSP.N ---
Hospitalist Note Prior admission remotely in 2018 with pre-admission concerns for PAF at that time of note. Patient with onset PAF with RVR reported with HR 150s. Will request ECHO, TSH recently 0.04 already ordered FT4 on levothyroxine with concern for euthyroid sick, mag recently replaced with repeat level in AM, transition from heparin SC to eliquis 2.5 mg BID. Given low normal BP will trial cardizem 10 mg IV x 1 and reassess.
[2021-11-19] MEDS: dilTIAZem 25 MG/5 ML Vial 10 MG IV BOLUS (03:18)
[2021-11-19 04:10] LABS: Bedside Glucose 95 mg/dL (74-106)
[2021-11-19] MEDS: Amiodarone 360 MG in Dextrose 5% Viaflo Bag 192.8 ML 33.3 MG CONT INF (04:17)
[2021-11-19 04:23] LABS: Troponin-I HS 34 pg/mL (3.0-54.0)
--- NOTE | 2021-11-19 05:55 | ECHOD_ITS ---
Reason For Study: PAF Procedure This was a 2D Doppler, Color Flow transthoracic echocardiogram. The study was technically difficult. Due to body habitus. Exam performed portable in patient room. Left Ventricle Based upon the 2D echocardiographic images obtained there appears to be grossly normal left ventricular size, wall motion, and systolic function. The estimated ejection fraction is 55 %. Diastolic function is indeterminate. Right Ventricle Based upon the 2D echocardiographic images obtained there appears to be grossly normal right ventricular size and systolic function. Atria Normal left atrium. Normal right atrium. No doppler evidence for ASD. Mitral Valve There is no mitral annular calcification. Normal mitral valve. Mild (1+) mitral valve insufficiency. Tricuspid Valve Normal tricuspid valve. Trivial tricuspid valve insufficiency. Right ventricular systolic pressure estimated to be 43 mmHg. Aortic Valve The aortic valve leaflets are not well visualized, however, based upon the 2D echocardiographic images obtained there appears to be diffuse thickening, calcification, and partial restriction. Pulmonic Valve The pulmonic valve is not well visualized. Trivial pulmonic valve insufficiency. Great Vessels Calcified aortic root. Pericardium/Pleural No pericardial effusion. Medication Performed a rapid injection of agitated mix of 9 cc saline and 1cc air to assess for atrial septal defect. MMode/2D Measurements & Calculations LVIDd: 3.7 cm IVSd: 1.0 cm LAV(MOD-bp): 52.1 ml LVIDs: 2.3 cm LVPWd: 0.94 cm RVDd: 2.8 cm FS: 37.7 % LAV(MOD-bp) Indexed: 29.2 ml/m2 LAV(MOD-sp2): 46.6 ml LAV(MOD-sp4): 54.0 ml LA dimension(2D): 3.9 cm LA A4 area: 19.0 cm2 RA A4 area: 17.4 cm2 Doppler Measurements & Calculations MV E max leland: 88.8 cm/sec Ao V2 max: 201.8 cm/sec AI max leland: 326.1 cm/sec Ao max P.3 mmHg AI max P.5 mmHg Ao V2 mean: 136.9 cm/sec AI dec slope: 191.3 cm/sec2 Ao mean P.4 mmHg AI P1/2t: 499.2 msec Ao V2 VTI: 36.8 cm LV V1 max: 95.4 cm/sec PA V2 max: 137.2 cm/sec TR max leland: 315.9 cm/sec LV V1 max P.7 mmHg TR max P.9 mmHg LV V1 mean P.0 mmHg LV V1 mean: 67.8 cm/sec LV V1 VTI: 17.4 cm ECHO/Echo Complete Interpretation Summary The study was technically difficult. Based upon the 2D echocardiographic images obtained there appears to be grossly normal left ventricular size, wall motion, and systolic function. The estimated ejection fraction is 55 %. Mild (1+) mitral valve insufficiency. Trivial tricuspid valve insufficiency. The aortic valve leaflets are not well visualized, however, based upon the 2D e chocardiographic images obtained there appears to be diffuse thickening, calcification, and part ial restriction. Trivial pulmonic valve insufficiency. Calcified aortic root. Right ventricular systolic pressure estimated to be 43 mmHg. Diastolic function is indeterminate. Ordering Physician: Patricia Pinto Referring Physician: Ashlie Bull Performed By: Zee Velázquez, MARCELL, RVT
[2021-11-19 06:29] LABS: Absolute Lymphocyte Count 1.01 X10^3/uL (0.83-4.51); Absolute Neutrophil Count 15.6 X10^3/uL (2.0-7.7); Basophil# 0.04 X10^3/uL; Basophil% 0.2 % (0-1); Eosinophil# 0.01 X10^3/uL; Eosinophils% 0.1 % (0-5); Hematocrit 28.3 % (37-47); Hemoglobin 9.4 g/dL (12.0-15.0); Lymphocyte # 1.01 X10^3/ul (0.83-4.51); Lymphocyte % 5.5 % (19-41); Mean Corp Hgb Conc 33.2 g/dL (32-36); Mean Corpuscular Hgb 33.6 pg (27.0-32.0); Mean Corpuscular Volume 101.1 fL (81-99); Monocyte# 1.33 X10^3/uL; Monocyte% 7.2 % (0-10); NRBC Flagged by Analyzer 0 % (0-5); Neutrophil # 15.61 X10^3/uL (2.7-7.7); Platelet Count 170 K/mm3 (150-450); RBC Distribution Width CV 14.9 % (11.6-14.6); White Blood Count 18.4 K/mm3 (4.4-11.0)
[2021-11-19] MEDS: Levothyroxine 150 MCG Tablet PO (06:46)
[2021-11-19 07:10] LABS: Troponin-I HS 33 pg/mL (3.0-54.0)
[2021-11-19 07:16] LABS: Bedside Glucose 103 mg/dL (74-106)
--- NOTE | 2021-11-19 07:30 | US_ITS ---
STUDY: RENAL ULTRASOUND - COMPLETE REASON FOR EXAM: Female, 86 years old. complicated UTI TECHNIQUE: Ultrasound evaluation of the kidneys was performed with real-time and static combs-scale imaging. COMPARISON: None. FINDINGS: RIGHT KIDNEY: Normal location of the right kidney, which is normal in size. The right kidney measures 9.3x5.1 cm. No follow-up required. There is a normal cortex of the right kidney. The renal cortex measures 1 cm. There is no right renal mass or cyst. There are no right renal calculi. There is no right hydronephrosis. DISTAL RIGHT URETER: There is non-visualization of the distal right ureter. There is no demonstrated right ureterovesical junction calculus. There is no demonstrated right ureteral jet. LEFT KIDNEY: Normal location of the left kidney, which is normal in size. The left kidney measures 11.8x5.1 cm. There is a normal cortex of the left kidney. The renal cortex measures 1.3 cm. There is left renal cyst measuring 13 x 8mm. There are no left renal calculi. There is no left hydronephrosis. DISTAL LEFT URETER: There is non-visualization of the distal left ureter. There is no demonstrated left ureterovesical junction calculus. There is no demonstrated left ureteral jet. AORTA: There is obscuration of the abdominal aorta by overlying bowel gas I.V.C.: The IVC is obscured. BLADDER: obscuration of the abdominal aorta by overlying bowel gas US/Kidney and Bladder IMPRESSION: Normal ultrasound of the kidneys and urinary bladder. Electronically Signed: Augustin Mcallister MD at 16:22 EDT ,
[2021-11-19 07:42] LABS: ALB/GLOB Ratio 0.3 RATIO (0.9-2.4); AST(SGOT) 34 U/L (15-37); Alanine Aminotransfer ALT/SGPT 18 U/L (13-56); Albumin, Serum 1.5 g/dL (3.2-5.0); Alkaline Phosphatase 116 U/L (45-117); Anion Gap 14 (5-15); BUN 40 mg/dL (7-18); BUN/Creat Ratio 6.4 RATIO (10-20); Calcium,Total 8.4 mg/dL (8.5-10.1); Chloride 101 mmol/L (98-107); Creatinine, Serum 6.27 mg/dL (0.55-1.02); EST Glomerular Filtration Rate 7 mL/min (>60); Est Glom Filt Rate - Afr Amer 8 mL/min (>60); Estimated Creatinine Clearance 4.86 ml/min; Globulin 4.4 g/dL (2.2-4.2); Glucose 97 mg/dL (74-106); Magnesium 2.3 mg/dL (1.6-2.6); Potassium 4.1 mmol/L (3.5-5.1); Protein, Total 5.9 g/dL (6.4-8.2); Sodium Level 134 mmol/L (136-145); T4 Free Direct 1.78 ng/dL (0.76-1.46)
--- NOTE | 2021-11-19 09:55 | WOUNDNOTE ---
wound photo: right arm
--- NOTE | 2021-11-19 09:55 | WOUNDNOTE ---
wound photo: right lower leg
--- NOTE | 2021-11-19 09:56 | WOUNDNOTE ---
wound photo: left lower leg
--- NOTE | 2021-11-19 09:56 | WOUNDNOTE ---
wound photo: left lower leg
[2021-11-19 10:01] LABS: Troponin-I HS 34 pg/mL (3.0-54.0)
[2021-11-19] MEDS: Amiodarone 360 MG in Dextrose 5% Viaflo Bag 192.8 ML 16.7 MG CONT INF (10:28)
--- NOTE | 2021-11-19 10:35 | CASEMGMT ---
RN CM Face to Face with patient for initial transition planning/care coordination assessment. RN CM introduced self and role at [facility]. Patient lying in bed, sleeping, at bedside. , Dada, willing to participate in assessment and is able to answer all questions appropriately. Care providers, pharmacy, and demographics verified. wishes for patient to discharge home, with possible HHC. If patient requires more assistance than is able to provide for transfers, will need additional therapy at SNF. states he has no further needs or concerns at this time. CM to follow for discharge planning needs that may arise. PCP: Jorgito Specialists: Jerardo supervisor lamp shades Preferred [facility]acy: [facility] Insurance: [facility] Prescription Benefit: none Living Will/HPOA: none LNOK: Living Arrangements: Patient lives with in a single story home with ramp to enter. assists patient with ADLs at home. Transportation: DME/HHC: Patient has shower chair, BSC, raised toilet, cane, walker, wheelchair, pulse ox, glucometer with supplies. Patient attends outpatient HD at [facility] at 0630. Patient has had [facility] in the past. states that patient was at SNF in [place] that has on site HD with [facility]. Disposition Plan: TBD, by course of treatment and progress with therapy. Anticipate HHC vs SNF. Clara LOPEZ, RN, CM
[2021-11-19] MEDS: APIXABAN 2.5 MG TABLET PO ×2 (10:47→21:22)
[2021-11-19] MEDS: Famotidine 20 MG Tablet PO (10:47)
[2021-11-19] MEDS: Juven (unflavored) Packet 1 PACKET PO (10:47)
--- NOTE | 2021-11-19 11:24 | EKG12_ITS ---
Test Reason : Blood Pressure : / mmHG Vent. Rate : 067 BPM Atrial Rate : 067 BPM P-R Int : 148 ms QRS Dur : 152 ms QT Int : 490 ms P-R-T Axes : 012 016 009 degrees QTc Int : 517 ms Normal sinus rhythm Right bundle branch block Inferior infarct (cited on or before 14-APR-2018) Abnormal ECG Confirmed by SAMIR SINCLAIR, ELMER ([id number]), editor map GALLITO BYNUM ([id number]) on 11/23/2021 2:22:31 PM Referred By: ARMIN Confirmed By:AMAYA DAWSON MD
[2021-11-19] MEDS: Midodrine HCl 5 MG Tablet 10 MG PO ×2 (11:52→18:45)
[2021-11-19 12:16] LABS: Bedside Glucose 140 mg/dL (74-106)
--- NOTE | 2021-11-19 12:16 | PCM.PN.HOSP ---
Documented by User: Maite Tineo NP, REGRADER-C 11/19/21 12:37 Subjective Subjective Patient seen and examined. Slow to respond. Complains of generalized pain. Son at bedside. Denies other symptoms or complaints. Objective Data Objective Data Vital Signs: Vital Signs Temp Pulse Resp BP Pulse Ox O2 Del Method O2 Flow Rate 97.8 F 68 16 97/49 L 93 Room Air 2 11/19/21 08:29 11/19/21 12:00 11/19/21 12:00 11/19/21 12:00 11/19/21 12:00 11/19/21 12:00 11/19/21 11:00 Oxygen Flow Rate (L/min) 2 Oxygen Delivery Method Room Air Weight: 177 lb 4.026 oz Body Mass Index (BMI) 34.1 Intake & Output: Intake and Output for Last 24 Hours 11/17/21 11/18/21 11/19/21 23:59 23:59 23:59 Intake Total 1019 / 1019 1128.61 / 1128.61 Output Total 75 / 75 50 / 50 Balance 944 / 944 1078.61 / 1078.61 Lab / Micro Data Result Diagrams: 11/19/21 05:40 11/19/21 05:40 Labs: Laboratory Results - last 24 hr 11/18/21 16:02: POC Glucose 116 H 11/18/21 21:24: POC Glucose 108 H 11/19/21 03:48: POC Glucose 95 11/19/21 03:54: Troponin I High Sens 34 11/19/21 05:40: Sodium 134 L, Potassium 4.1, Chloride 101, Carbon Dioxide 19.0 L, Anion Gap 14, BUN 40 H, Creatinine 6.27 H, Estim Creat Clear Calc 4.86, Est GFR (MDRD) Af Amer 8 L, Est GFR (MDRD) Non-Af 7 L, BUN/Creatinine Ratio 6.4 L, Glucose 97, Calcium 8.4 L, Magnesium 2.3, Total Bilirubin 0.50, AST 34, ALT 18, Alkaline Phosphatase 116, Total Protein 5.9 L, Albumin 1.5 L, Globulin 4.4 H, Albumin/Globulin Ratio 0.3 L, Free T4 1.78 H 11/19/21 05:40: WBC 18.4 H, RBC 2.80 L, Hgb 9.4 L, Hct 28.3 L, MCV 101.1 H, MCH 33.6 H, MCHC 33.2, RDW Std Deviation 56.0 H, RDW Coeff of Lisy 14.9 H, Plt Count 170, MPV 10.0, Immature Gran % (Auto) 2.000 H, Neut % (Auto) 85.0 H, Lymph % (Auto) 5.5 L, Cole % (Auto) 7.2, Eos % (Auto) 0.1, Baso % (Auto) 0.2, Absolute Neuts (auto) 15.6 H, Absolute Lymphs (auto) 1.01, Nucleated RBC % 0 11/19/21 05:40: Troponin I High Sens 33 11/19/21 06:58: POC Glucose 103 11/19/21 09:36: Troponin I High Sens 34 11/19/21 11:50: POC Glucose 140 H Micro: Microbiology 11/18/21 18:43 Urine, Clean Catch Legionella Antigen - Final 11/18/21 18:43 Urine, Clean Catch Streptococcus pneumoniae Antigen (M - Final Physical Exam Const alert Constitutional Narrative: Slow to respond HEENT normocephalic Mouth: dry mucous membranes Eyes PERRL, EOMs intact bilaterally and conjunctivae normal Neck no lymphadenopathy Resp clear to auscultation bilaterally Auscultation: diminished lung sounds Cardio regular rate, regular rhythm and no murmurs Cardio Narrative: Converted to sinus rhythm Peripheral Pulses: pulses 2+ throughout GI normal to inspection, nondistended, normoactive bowel sounds, non-tender and non-distended Extremity normal to inspection General Extremity: edema bilateral lower extremity Skin no rashes or lesions noted Skin Narrative: Bilateral lower extremity macerated tissue with scattered superficial wounds. Hadley wraps in place. Lesions: no lesions Rashes: no rashes Trauma: no lacerations or abrasions Neuro CN's II-XII intact bilaterally, no focal motor deficits, no sensory deficits noted and deep tendon reflexes 2+ bilaterally Psych Mood & Affect: flat affect Assessment & Plan Assessment/Plan (1) Complicated urinary tract infection: PLAN: Plan 1. Acute complicated UTI with likely associated bacteremia-[facility] growing Klebsiella. Final pending. Chest x-ray at out side facility unremarkable. Continue IV Zosyn. Kidney and bladder ultrasound pending. 2. Hypotension-initiated on midodrine. Trend BP. 3. Paroxysmal atrial fibrillation with RVR-cardiology consulted. Echocardiogram pending. Initiated on Eliquis 2.5 mg twice daily. Amiodarone drip. Converted to sinus rhythm. 4. Hypothyroidism- TSH 0.04, free T4 1.78. Hold levothyroxine with repeat thyroid studies in 4 weeks. 5. Debility with recent falls-PT/OT. Case management/social work consulted for discharge planning. Imaging without acute fractures. 6. End-stage renal disease on hemodialysis-nephrology consulted for dialysis. Midodrine added for blood pressure support. 7. Anemia of chronic disease-appears stable. 8. Chronic bilateral lower extremity venous stasis wounds-wound RN consult. Hadley wraps bilateral lower extremities. 9. History of gout-on allopurinol. 10. Type 2 diabetes dnusenwu-Oqxl-Lwapy with sliding scale insulin. Continue home insulin regimen. 11. Hyperlipidemia-continue statin. 12. Hypertension-metoprolol on hold. 13. GERD-on famotidine. DVT prophylaxis-Eliquis This patient was seen by Maite Tineo NP-C under the supervision of Dr. Rogers. Time spent examining patient, reviewing data and subsequent management of care: 17 minutes Documented by User: Dr. Ingrid Rogers MD 11/19/21 14:03 Objective Data Lab / Micro Data Result Diagrams: 11/19/21 05:40 11/19/21 05:40 Assessment & Plan Assessment/Plan (1) Complicated urinary tract infection: Charges/Coding Addendum Addendum: This patient was seen in conjunction with Maite Tineo NP. I have independently interviewed and examined the patient and reviewed pertinent historical, laboratory, and other data. I have reviewed her note and concur with her documentation Patient was seen and examined. She appears very lethargic. Blood pressure has been relatively low. Patient remains on amiodarone drip. Converted later in the morning to normal sinus rhythm. Previous TSH is very low. Free T4 is elevated. Physical Exam: Gen: Comfortable, not pale, not jaundiced, appears lethargic, on 2 L of oxygen, fluid overload CVS:HS I +II, regular, no murmurs RESP: Diminished at lung bases GI: BS present and normal, soft, nontender, no palpable organs EXT: Generalized edema ASSESSMENT: 1. Paroxysmal A. fib with RVR 2. Hyperthyroidism 3. Acute complicated UTI 4. Debility 5. ESRD on hemodialysis 6. Anemia of chronic disease 7. Bilateral lower extremity venous stasis wounds 8. Gout 9. Hyperlipidemia 10. Type II DM 11. Hypertension Plan: Start on midodrine, Decrease levothyroxine 200 mcg daily Continue oral amiodarone Continue metoprolol 12.5 mg twice daily Time spent coordinating all aspects of patient's care, discussing with cardiology and nursinminutes Visit Charges Inpatient E&M: 96012 Subs Hosp L3
--- NOTE | 2021-11-19 13:30 | CON.PCM.CA_ITS ---
Assessment & Plan Assessment/Plan (1) Atrial fibrillation: PLAN: Rapid ventricular rate could be related to hyperthyroid state. Recommend decreasing the levothyroxine to 100mcg/daily and rechecking TSH in about 6 weeks. Recommend changing the metoprolol to 12.5 mg p.o. twice daily, discontinuing the IV amiodarone and adding p.o. amiodarone 200 mg daily. Continue Eliquis. We will sign off at this time. If we can be of any further assistance please let us know. HPI Consult Data Date of Consult: 11/19/21 HPI Narrative Reason for Consultation: A. fib with RVR HPI Narrative: Cardiology consult was requested on this 86-year-old female with multiple medical problems due to A. fib with RVR. Patient was started on amiodarone drip and has converted to sinus rhythm. She is on levothyroxine 150 mcg p.o. daily and her TSH is 0.04. Patient is a poor historian and does not know how long she has been on this dose of levothyroxine. [facility] Medical History Arthritis Chronic kidney disease, stage IV (severe) Congestive heart failure Debility Dependent edema Diabetes mellitus Diverticulosis large intestine w/o perforation or abscess w/o bleeding Easy bruising Gastric reflux Gout Hiatal hernia High cholesterol History of atrial fibrillation History of CHF (congestive heart failure) History of echocardiogram History of edema History of renal dialysis History of renal disease History of stress test Hx of vaginal delivery Hypertension Hypothyroidism Immobility Injury of head and neck Insulin dependent diabetes mellitus Kidney stone Leg edema Leg swelling Non-smoker Obesity (BMI 30-39.9) On home oxygen therapy Parkinson's disease Parkinsons disease Post-menopausal Skin tear Thyroid disease Uses wheelchair Valvular heart disease Venous hypertension, chronic, with ulcer Venous stasis ulcer Walker as ambulation aid Wears dentures Wears glasses Home Medications devknwsg-bwy-yoict acid 0.4 mg-lycopene 300 mcg-lutein 250 mcg tablet (Centrum Silver) 1 ea PO DAILY SUPPLEMENT 06/20/17 [History Last Taken 11/16/21] allopurinol 100 mg tablet 100 mg PO QHS gout 04/15/18 [History Last Taken 11/16/21] acetaminophen 500 mg tablet 1,000 mg PO TID 04/18/18 [Rx Last Taken Unknown] insulin lispro 100 unit/mL subcutaneous pen (Humalog KwikPen (U-100) Insulin) See Protocol subcut ACHS 04/18/18 [Rx Last Taken Unknown] Lactobacillus acidophilus-Lactbacillus bifidus 1 billion cell capsule 1 cap PO DAILY Check with primary doctor 06/19/21 [History Last Taken Unknown] famotidine 20 mg tablet 20 mg PO DAILY Check with primary doctor 06/19/21 [History Last Taken 11/16/21] atorvastatin 10 mg tablet 20 mg PO DAILY cholesterol 11/06/21 [History Last Taken 11/16/21] insulin glargine 100 unit/mL (3 mL) subcutaneous pen (Lantus Solostar U-100 Insulin) 12 unit subcut QPM Check with primary doctor 11/06/21 [History Last Taken Unknown] levothyroxine 137 mcg tablet 150 mcg PO DAILY thyroid 11/06/21 [History Last Taken 11/17/21] metoprolol tartrate 50 mg tablet 12.5 mg PO DAILY heart rate 11/06/21 [History Last Taken 11/17/21] Allergy/AdvReac Type Severity Reaction Status Date / Time TAYLOR Inhibitors AdvReac Other Verified 11/15/21 10:21 amitriptyline [From Elavil] AdvReac Other Verified 11/15/21 10:21 ciprofloxacin [From Cipro] AdvReac Other Verified 11/15/21 10:21 lisinopril AdvReac Other Verified 11/15/21 10:21 Family History Son Diabetes Hypertension Surgical History Hx of colonoscopy Hx of lithotripsy Social History (Updated 11/17/21 @ 19:[address] Lore Blanco DO) household members: spouse housing: house Smoking Status: Never smoker alcohol intake: never substance use type: does not use Physical Exam Const Constitutional Narrative: Awake, answers questions appropriately HEENT normocephalic Eyes no scleral icterus Resp normal respiratory effort Cardio regular rate and regular rhythm Risk Stratification Risk Stratification Applicable: No Charges/Coding Visit Charges Inpatient E&M: 34371 Init Hosp L2 Objective Data Vital Signs: Vital Signs Temp Pulse Resp BP Pulse Ox O2 Del Method O2 Flow Rate 97.8 F 65 16 108/48 L 93 Room Air 2 11/19/21 08:29 11/19/21 13:00 11/19/21 12:00 11/19/21 13:00 11/19/21 12:00 11/19/21 12:00 11/19/21 11:00 Oxygen Flow Rate (L/min) 2 Oxygen Delivery Method Room Air Weight: 177 lb 4.026 oz Body Mass Index (BMI) 34.1 Intake & Output: Intake and Output for Last 24 Hours 11/17/21 11/18/21 11/19/21 23:59 23:59 23:59 Intake Total 1019 / 1019 1145.31 / 1145.31 Output Total 75 / 75 50 / 50 Balance 944 / 944 1095.31 / 1095.31 Lab / Micro Data Result Diagrams: 11/19/21 05:40 11/19/21 05:40 Labs: Laboratory Results - last 24 hr 11/18/21 16:02: POC Glucose 116 H 11/18/21 21:24: POC Glucose 108 H 11/19/21 03:48: POC Glucose 95 11/19/21 03:54: Troponin I High Sens 34 11/19/21 05:40: Sodium 134 L, Potassium 4.1, Chloride 101, Carbon Dioxide 19.0 L , Anion Gap 14, BUN 40 H, Creatinine 6.27 H, Estim Creat Clear Calc 4.86, Est GFR (MDRD) Af Amer 8 L, Est GFR (MDRD) Non-Af 7 L, BUN/Creatinine Ratio 6.4 L, Glucose 97, Calcium 8.4 L, Magnesium 2.3, Total Bilirubin 0.50, AST 34, ALT 18, Alkaline Phosphatase 116, Total Protein 5.9 L, Albumin 1.5 L, Globulin 4.4 H, Albumin/Globulin Ratio 0.3 L, Free T4 1.78 H 11/19/21 05:40: WBC 18.4 H, RBC 2.80 L, Hgb 9.4 L, Hct 28.3 L, MCV 101.1 H, MCH 33.6 H, MCHC 33.2, RDW Std Deviation 56.0 H, RDW Coeff of Lisy 14.9 H, Plt Count 170, MPV 10.0, Immature Gran % (Auto) 2.000 H, Neut % (Auto) 85.0 H, Lymph % (Auto) 5.5 L, Ballard % (Auto) 7.2, Eos % (Auto) 0.1, Baso % (Auto) 0.2, Absolute Neuts (auto) 15.6 H, Absolute Lymphs (auto) 1.01, Nucleated RBC % 0 11/19/21 05:40: Troponin I High Sens 33 11/19/21 06:58: POC Glucose 103 11/19/21 09:36: Troponin I High Sens 34 11/19/21 11:50: POC Glucose 140 H Micro: Microbiology 11/18/21 18:43 Urine, Clean Catch Legionella Antigen - Final 11/18/21 18:43 Urine, Clean Catch Streptococcus pneumoniae Antigen (M - Final Cardiology Labs/Tests 11/19/21 05:40: Sodium 134 L, Potassium 4.1, Chloride 101, Carbon Dioxide 19.0 L , Anion Gap 14, BUN 40 H, Creatinine 6.27 H, Est GFR (MDRD) Af Amer 8 L, Est GFR (MDRD) Non-Af 7 L, BUN/Creatinine Ratio 6.4 L, Glucose 97, Calcium 8.4 L, Magnesium 2.3, Total Bilirubin 0.50 11/19/21 05:40: WBC 18.4 H, RBC 2.80 L, Hgb 9.4 L, Hct 28.3 L, MCV 101.1 H, MCH 33.6 H, MCHC 33.2, Plt Count 170, MPV 10.0, Immature Gran % (Auto) 2.000 H, Neut % (Auto) 85.0 H, Lymph % (Auto) 5.5 L, Ballard % (Auto) 7.2, Eos % (Auto) 0.1, Baso % (Auto) 0.2, Absolute Neuts (auto) 15.6 H, Nucleated RBC % 0 Rhythm: EKG: ECHO: Stress Test: Cardiac Cath: PCI: CT Surgery: Holter monitor: EPS: PPM: CXR: Chest CT Scan:
--- NOTE | 2021-11-19 14:10 | CHAPLAIN ---
Type of Pastoral Visit _x__ Initial Visit ___ Follow-up Visit ___ On-call Visit ___ General Patient Visit ___ Spiritual Assessment ___ Family Conference ___ Bereavement ___ Rapid Response ___ Code Blue ___ Other (describe below) Pastoral Care Referral From _x__ Patient ___ Family ___ Nurse ___ Physician ___ Commanding Officer Garage ___ Regional Extension Service Specialist ___ Other (describe below) Sacrament/Intervention _x__ Active listening ___ Anointing ___ Religious ___ Bereavement ___ Communion ___ Teresa exploration ___ ___ Life review _x__ Prayer ___ Reconciliation ___ Sacrament of Sick _x__ Supportive presence ___ Wedding ___ Other (describe below) Pastoral Comments patient is resting but opens her eyes upon entrance to room; son Dada is sitting at her bedside; patient says that son is the one who takes care of me; pt states that she is okay but wants to feel better; pt states that a prayer would be good; pt is not affiliated with a jain or teresa group; pt is slow to speak but has appropriate responses;
--- NOTE | 2021-11-19 16:11 | PCM.CONS.R ---
Assessment & Plan Assessment/Plan (1) ESRD (end stage renal disease): PLAN: seen on dialysis today. Blood pressure is on the lower side. Could be related to atrial fibrillation with RVR. Also has sepsis with leukocytosis. No evidence of septic shock so far. Will try dialysis with midodrine support. As per chart, bacteremia with Klebsiella. Antibiotic coverage as per primary. Discussed with at bedside. Discussed with dialysis staff HPI Consult Data Date of Consult: 11/19/21 HPI Narrative Reason for Consultation: ESRD HPI Narrative: ARLETTE RIVERA, is a 86 F who presentsto the hospital with genneralized weakness, fevers. Nephrology on consult for ESRD. Most of the history is obtained from who was bedside. Patient is somewhat confused and drowsy. History of ESRD, on hemodialysis, Friday, Friday, Friday schedule. Last dialysis was Friday last week. Currently has IJ tunneled dialysis catheter. She has been on dialysis since July of this year. Found to have UTI, bacteremia, atrial fibrillation with RVR.. Blood pressure is on the lower side today. As per , blood pressure is usually not this low. She was on amiodarone drip,converted to sinus rhythm. Cardiology note reviewed. [facility] Medical History Arthritis Chronic kidney disease, stage IV (severe) Congestive heart failure Debility Dependent edema Diabetes mellitus Diverticulosis large intestine w/o perforation or abscess w/o bleeding Easy bruising Gastric reflux Gout Hiatal hernia High cholesterol History of atrial fibrillation History of CHF (congestive heart failure) History of echocardiogram History of edema History of renal dialysis History of renal disease History of stress test Hx of vaginal delivery Hypertension Hypothyroidism Immobility Injury of head and neck Insulin dependent diabetes mellitus Kidney stone Leg edema Leg swelling Non-smoker Obesity (BMI 30-39.9) On home oxygen therapy Parkinson's disease Parkinsons disease Post-menopausal Skin tear Thyroid disease Uses wheelchair Valvular heart disease Venous hypertension, chronic, with ulcer Venous stasis ulcer Walker as ambulation aid Wears dentures Wears glasses Home Medications [id number] acid 0.4 mg-lycopene 300 mcg-lutein 250 mcg tablet (Centrum Silver) 1 ea PO DAILY SUPPLEMENT 06/20/17 [History Last Taken 11/16/21] allopurinol 100 mg tablet 100 mg PO QHS gout 04/15/18 [History Last Taken 11/16/21] acetaminophen 500 mg tablet 1,000 mg PO TID 04/18/18 [Rx Last Taken Unknown] insulin lispro 100 unit/mL subcutaneous pen (Humalog KwikPen (U-100) Insulin) See Protocol subcut ACHS 04/18/18 [Rx Last Taken Unknown] Lactobacillus acidophilus-Lactbacillus bifidus 1 billion cell capsule 1 cap PO DAILY Check with primary doctor 06/19/21 [History Last Taken Unknown] famotidine 20 mg tablet 20 mg PO DAILY Check with primary doctor 06/19/21 [History Last Taken 11/16/21] atorvastatin 10 mg tablet 20 mg PO DAILY cholesterol 11/06/21 [History Last Taken 11/16/21] insulin glargine 100 unit/mL (3 mL) subcutaneous pen (Lantus Solostar U-100 Insulin) 12 unit subcut QPM Check with primary doctor 11/06/21 [History Last Taken Unknown] levothyroxine 137 mcg tablet 150 mcg PO DAILY thyroid 11/06/21 [History Last Taken 11/17/21] metoprolol tartrate 50 mg tablet 12.5 mg PO DAILY heart rate 11/06/21 [History Last Taken 11/17/21] Allergy/AdvReac Type Severity Reaction Status Date / Time TAYLOR Inhibitors AdvReac Other Verified 11/15/21 10:21 amitriptyline [From Elavil] AdvReac Other Verified 11/15/21 10:21 ciprofloxacin [From Cipro] AdvReac Other Verified 11/15/21 10:21 lisinopril AdvReac Other Verified 11/15/21 10:21 Family History Son Diabetes Hypertension Surgical History Hx of colonoscopy Hx of lithotripsy Social History (Updated 11/17/21 @ 19:[address] Lore Blanco DO) household members: spouse housing: house Smoking Status: Never smoker alcohol intake: never substance use type: does not use ROS Review of Systems ROS Unobtainable: due to encephalopathy Physical Exam Narrative drowsy no obvious distress no pallor no icterus no JVD s1s2 no murmurs lungs clear abdomen soft no organomegaly no edema no cyanosis Lab / Micro Data Result Diagrams: 11/19/21 05:40 11/19/21 05:40 Labs: Laboratory Results - last 24 hr 11/18/21 16:02: POC Glucose 116 H 11/18/21 21:24: POC Glucose 108 H 11/19/21 03:48: POC Glucose 95 11/19/21 03:54: Troponin I High Sens 34 11/19/21 05:40: Sodium 134 L, Potassium 4.1, Chloride 101, Carbon Dioxide 19.0 L, Anion Gap 14, BUN 40 H, Creatinine 6.27 H, Estim Creat Clear Calc 4.86, Est GFR (MDRD) Af Amer 8 L, Est GFR (MDRD) Non-Af 7 L, BUN/Creatinine Ratio 6.4 L, Glucose 97, Calcium 8.4 L, Magnesium 2.3, Total Bilirubin 0.50, AST 34, ALT 18, Alkaline Phosphatase 116, Total Protein 5.9 L, Albumin 1.5 L, Globulin 4.4 H, Albumin/Globulin Ratio 0.3 L, Free T4 1.78 H 11/19/21 05:40: WBC 18.4 H, RBC 2.80 L, Hgb 9.4 L, Hct 28.3 L, MCV 101.1 H, MCH 33.6 H, MCHC 33.2, RDW Std Deviation 56.0 H, RDW Coeff of Lisy 14.9 H, Plt Count 170, MPV 10.0, Immature Gran % (Auto) 2.000 H, Neut % (Auto) 85.0 H, Lymph % (Auto) 5.5 L, [place] % (Auto) 7.2, Eos % (Auto) 0.1, Baso % (Auto) 0.2, Absolute Neuts (auto) 15.6 H, Absolute Lymphs (auto) 1.01, Nucleated RBC % 0 11/19/21 05:40: Troponin I High Sens 33 11/19/21 06:58: POC Glucose 103 11/19/21 09:36: Troponin I High Sens 34 11/19/21 11:50: POC Glucose 140 H Micro: Microbiology 11/18/21 18:43 Urine, Clean Catch Legionella Antigen - Final 11/18/21 18:43 Urine, Clean Catch Streptococcus pneumoniae Antigen (M - Final Radiology Impression Echocardiogram 11/19/21 05:55 Interpretation Summary The study was technically difficult. Based upon the 2D echocardiographic images obtained there appears to be grossly normal left ventricular size, wall motion, and systolic function. The estimated ejection fraction is 55 %. Mild (1+) mitral valve insufficiency. Trivial tricuspid valve insufficiency. The aortic valve leaflets are not well visualized, however, based upon the 2D echocardiographic images obtained there appears to be diffuse thickening, calcification, and partial restriction. Trivial pulmonic valve insufficiency. Calcified aortic root. Right ventricular systolic pressure estimated to be 43 mmHg. Diastolic function is indeterminate. Ordering Physician: Patricia Pinto Referring Physician: Ashlie Bull Performed By: Zee Velázquez, MARCELL, RVT
[2021-11-19 16:45] LABS: Bedside Glucose 135 mg/dL (74-106)
[2021-11-19] MEDS: Heparin 10,000 UNITS/10 ML Vial 4000 UNITS IV (18:34)
--- NOTE | 2021-11-19 18:40 | DIALYSIS ---
Hemodialysis x3 hours completed at 1805 on a 3K bath, tolerated well, UF 1000mL, CritLine profile C, BPs stable, accessed via left chest tunneled dialysis catheter, worked well, next tx planned for Friday
[2021-11-19] MEDS: Vancomycin IV 500 MG/100 ML BAG 100 MG IV (18:51)
[2021-11-19] MEDS: Insulin Glargine-YFGN 100 UNIT/ML Pen 12 UNIT SC (21:19)
[2021-11-19] MEDS: Atorvastatin Calcium 20 MG Tablet PO ×2 (21:20→21:21)
[2021-11-19] MEDS: Allopurinol 100 MG Tablet PO (21:21)
[2021-11-19 21:56] LABS: Bedside Glucose 203 mg/dL (74-106)
[2021-11-20] VITALS (17 sets, daily range): BP systolic 95–121; BP diastolic 44–58; PULSE 48–74; RESP 18–22; TEMP 36.4–37.2; O2SAT 93–97
[2021-11-20 05:00] LABS: Absolute Lymphocyte Count 1.08 X10^3/uL (0.83-4.51); Absolute Neutrophil Count 12.5 X10^3/uL (2.0-7.7); Basophil# 0.07 X10^3/uL; Basophil% 0.5 % (0-1); Eosinophil# 0.19 X10^3/uL; Eosinophils% 1.2 % (0-5); Hematocrit 26.9 % (37-47); Lymphocyte # 1.08 X10^3/ul (0.83-4.51); Lymphocyte % 7.1 % (19-41); Mean Corp Hgb Conc 33.5 g/dL (32-36); Mean Corpuscular Hgb 33.3 pg (27.0-32.0); Mean Corpuscular Volume 99.6 fL (81-99); Mean Platelet Vol. 9.8 fl (6.2-12.0); Monocyte# 1.26 X10^3/uL; Monocyte% 8.3 % (0-10); NRBC Flagged by Analyzer 0 % (0-5); Neutrophil # 12.47 X10^3/uL (2.7-7.7); Neutrophil % 81.7 % (47-70); Platelet Count 188 K/mm3 (150-450); RBC Distribution Width CV 14.8 % (11.6-14.6); RBC Distribution Width SD 54.4 fl (35.1-43.9); White Blood Count 15.3 K/mm3 (4.4-11.0)
[2021-11-20 05:17] LABS: Albumin, Serum 1.5 g/dL (3.2-5.0); BUN 22 mg/dL (7-18); BUN/Creat Ratio 5.7 RATIO (10-20); Calcium,Total 8.1 mg/dL (8.5-10.1); Chloride 99 mmol/L (98-107); Creatinine, Serum 3.85 mg/dL (0.55-1.02); EST Glomerular Filtration Rate 12 mL/min (>60); Est Glom Filt Rate - Afr Amer 14 mL/min (>60); Estimated Creatinine Clearance 7.91 ml/min; Glucose 86 mg/dL (74-106); Phosphorus 2.6 mg/dL (2.5-4.9); Potassium 3.7 mmol/L (3.5-5.1); Sodium Level 134 mmol/L (136-145)
[2021-11-20] MEDS: Levothyroxine 100 MCG Tablet PO (06:12)
[2021-11-20 06:45] LABS: Bedside Glucose 89 mg/dL (74-106)
[2021-11-20] MEDS: Amiodarone 200 MG Tablet 100 MG PO (07:55)
[2021-11-20] MEDS: Midodrine HCl 5 MG Tablet 10 MG PO ×3 (07:55→17:08)
[2021-11-20] MEDS: Juven (unflavored) Packet 1 PACKET PO (07:55)
[2021-11-20] MEDS: APIXABAN 2.5 MG TABLET PO ×2 (07:56→20:47)
[2021-11-20] MEDS: Famotidine 20 MG Tablet PO (07:56)
[2021-11-20] MEDS: Acetaminophen 325 MG Tablet 650 MG PO ×2 (08:47→20:44)
[2021-11-20] MEDS: Metoprolol Tartrate 25 MG Tablet 12.5 MG PO ×2 (09:22→20:47)
--- NOTE | 2021-11-20 11:06 | CASEMGMT ---
SW spoke with patient and her . SW discussed discharge plan. Patient and her agree they would prefer [facility] as patient was there recently and they have onsite dialysis. SW offered patient and her a list of SNF providers including quality and resource use data and consistent with the patient?s preferred geographic region, medical needs, and insurance network. They declined as they want [facility]. SW will work on referral. SW sent a referral to [facility] via [facility]. SW received a response indicating they will accept patient. Plan: d/c to [facility] when ready. Monica Dash BOAT BUILDER HUMAN SERVICES SUPERVISOR
--- NOTE | 2021-11-20 11:30 | CASEMGMT ---
SW spoke with patient and her son. SW discussed discharge plan. Patient and her son agree they would prefer [facility] as patient was there recently and they have onsite dialysis. SW offered patient and her son a list of SNF providers including quality and resource use data and consistent with the patient?s preferred geographic region, medical needs, and insurance network. They declined as they want [facility]. SW will work on referral. CHRISTINE sent a referral to [facility] via [facility]. SW received a response indicating they will accept patient. Plan: d/c to [facility] when ready. Monica Dash PROJECT BUYER CRUSHER FEEDER
--- NOTE | 2021-11-20 11:34 | CASEMGMT ---
Per Dr. Rogers, palliative referral to be sent for pt and pt does qualify via screening tool. Pt's plan is for [facility] at discharge and is awaiting acceptance. Palliative order to be sent with transfer summary and [facility] to be notified by Kylie TONY CM to follow for any further discharge planning/needs. Kimberly CORDOBA CM
[2021-11-20 11:40] LABS: Bedside Glucose 148 mg/dL (74-106)
--- NOTE | 2021-11-20 12:23 | PN.HOSP_ITS ---
Documented by User: Maite Tineo NP, COLLABORATIVE TEACHER-C 11/20/21 12:32 Subjective Subjective Patient seen and examined. More alert today. Complains of back and buttock discomfort related to laying in bed. Denies fever, chills. Denies other symptoms or complaints. Objective Data Objective Data Vital Signs: Vital Signs Temp Pulse Resp BP Pulse Ox O2 Del Method O2 Flow Rate 98.0 F 56 L 20 H 121/50 H 95 Nasal Cannula 1 11/20/21 07:50 11/20/21 11:25 11/20/21 07:50 11/20/21 09:22 11/20/21 07:50 11/20/21 07:55 11/20/21 07:55 Oxygen Flow Rate (L/min) 1 Oxygen Delivery Method Nasal Cannula Weight: 173 lb 4.533 oz Body Mass Index (BMI) 34.1 Intake & Output: Intake and Output for Last 24 Hours 11/18/21 11/19/21 11/20/21 23:59 23:59 23:59 Intake Total 1019 / 1019 1564.54 / 1564.54 440 / 440 Output Total 75 / 75 1050 / 1050 0 / 0 Balance 944 / 944 514.54 / 514.54 440 / 440 Lab / Micro Data Result Diagrams: 11/20/21 03:48 11/20/21 03:48 Labs: Laboratory Results - last 24 hr 11/19/21 16:17: POC Glucose 135 H 11/19/21 21:17: POC Glucose 203 H 11/20/21 03:48: WBC 15.3 H, RBC 2.70 L, Hgb 9.0 L, Hct 26.9 L, MCV 99.6 H, MCH 33.3 H, MCHC 33.5, RDW Std Deviation 54.4 H, RDW Coeff of Lisy 14.8 H, Plt Count 188, MPV 9.8, Immature Gran % (Auto) 1.200 H, Neut % (Auto) 81.7 H, Lymph % (Auto) 7.1 L, [place] % (Auto) 8.3, Eos % (Auto) 1.2, Baso % (Auto) 0.5, Absolute Neuts (auto) 12.5 H, Absolute Lymphs (auto) 1.08, Nucleated RBC % 0 11/20/21 03:48: Sodium 134 L, Potassium 3.7, Chloride 99, Carbon Dioxide 27.0, BUN 22 H, Creatinine 3.85 H, Estim Creat Clear Calc 7.91, Est GFR (MDRD) Af Amer 14 L, Est GFR (MDRD) Non-Af 12 L, BUN/Creatinine Ratio 5.7 L, Glucose 86, Calcium 8.1 L, Phosphorus 2.6, Albumin 1.5 L 11/20/21 06:18: POC Glucose 89 11/20/21 11:15: POC Glucose 148 H Micro: Microbiology 11/18/21 18:43 Urine, Clean Catch Urine Culture - Final Mixed Gram Pos & Gram Neg Org 11/18/21 18:43 Urine, Clean Catch Legionella Antigen - Final 11/18/21 18:43 Urine, Clean Catch Streptococcus pneumoniae Antigen (M - Final Radiography Diagnostic Testing: Radiology Impression Echocardiogram 11/19/21 05:55 Interpretation Summary The study was technically difficult. Based upon the 2D echocardiographic images obtained there appears to be grossly normal left ventricular size, wall motion, and systolic function. The estimated ejection fraction is 55 %. Mild (1+) mitral valve insufficiency. Trivial tricuspid valve insufficiency. The aortic valve leaflets are not well visualized, however, based upon the 2D echocardiographic images obtained there appears to be diffuse thickening, calcification, and partial restriction. Trivial pulmonic valve insufficiency. Calcified aortic root. Right ventricular systolic pressure estimated to be 43 mmHg. Diastolic function is indeterminate. Ordering Physician: Patricia Pinto Referring Physician: Ashlie Bull Performed By: Zee Velázquez, MARCLEL, RVT Renal Ultrasound 11/19/21 07:30 IMPRESSION: Normal ultrasound of the kidneys and urinary bladder. Electronically Signed: Augustin Mcallister MD at 16:22 EDT Reading Location ID and State: [facility] / [place] , Service support , Physical Exam Const alert and oriented x3 Constitutional Narrative: Alert and oriented however slow to respond HEENT normocephalic and moist oral mucous membranes Eyes PERRL, EOMs intact bilaterally and conjunctivae normal Neck no lymphadenopathy Resp clear to auscultation bilaterally Auscultation: diminished lung sounds Cardio regular rate, regular rhythm and no murmurs Peripheral Pulses: pulses 2+ throughout GI normal to inspection, nondistended, normoactive bowel sounds, non-tender and non-distended Extremity normal to inspection Skin no rashes or lesions noted Skin Narrative: Bilateral lower extremity macerated tissue with scattered superficial wounds.? Hadley wraps in place. Lesions: no lesions Rashes: no rashes Trauma: no lacerations or abrasions Neuro CN's II-XII intact bilaterally, no focal motor deficits, no sensory deficits noted and deep tendon reflexes 2+ bilaterally Psych mental status grossly normal and affect normal Assessment & Plan Assessment/Plan (1) Complicated urinary tract infection: PLAN: Plan 1.? Acute complicated UTI with likely associated bacteremia-blood culture from [facility] preliminary growing Klebsiella.? Chest x-ray at out side facility unremarkable.? Continue IV Zosyn.? Kidney and bladder ultrasound normal. 2. Hypotension-initiated on midodrine.? BP improved. 3. Paroxysmal atrial fibrillation with RVR-cardiology consulted.? Echocardiogram demonstrated an EF of 55%, mild mitral valve insufficiency, RVSP estimated to be 43 mmHg.? Initiated on Eliquis 2.5 mg twice daily.? Converted to sinus rhythm. Amiodarone drip discontinued. Continue oral amiodarone and metoprolol. 4. Hypothyroidism- TSH 0.04, free T4 1.78.? Reduce levothyroxine to 100 mcg daily with repeat thyroid studies in 4 to 6 weeks. 5. Debility with recent falls-PT/OT.? Case management/social work consulted for discharge planning.? Imaging without acute fractures. 6. End-stage renal disease on hemodialysis-nephrology consulted for dialysis.? Midodrine added for blood pressure support. 7. Anemia of chronic disease-appears stable. 8. Chronic bilateral lower extremity venous stasis wounds-wound RN consult.? Hadley wraps bilateral lower extremities. 9. History of gout-on allopurinol. 10. Type 2 diabetes [id number]-[id number] with sliding scale insulin.? Continue home insulin regimen. 11. Hyperlipidemia-continue statin. 12. Hypertension-now stable. 13. GERD-on famotidine. DVT prophylaxis-Eliquis This patient was seen by Maite Tineo NP-C under the supervision of Dr. Rogers. Time spent examining patient, reviewing data and subsequent management of care: 15 minutes Documented by User: Dr. Ingrid Rogers MD 11/20/21 14:40 Objective Data Lab / Micro Data Result Diagrams: 11/20/21 03:48 11/20/21 03:48 Assessment & Plan Assessment/Plan (1) Complicated urinary tract infection: Charges/Coding Addendum Addendum: This patient was seen in conjunction with Maite Tineo NP.? I have independently interviewed and examined the patient and reviewed pertinent hist orical, laboratory, and other data. I have reviewed her note and concur with her documentation Patient was seen and examined. She is much improved. Less lethargic. Blood pressures are better. She had dialysis yesterday and the bilateral fluid was taken off. Physical Exam: Gen: Comfortable, not pale, not jaundiced, appears lethargic, on 2 L of oxygen, fluid overload CVS:HS I +II, regular, no murmurs RESP: Diminished at lung bases GI: BS present and normal, soft, nontender, no palpable organs EXT: Generalized edema ASSESSMENT: 1.? Paroxysmal A. fib with RVR 2.? Hyperthyroidism 3.? Acute complicated UTI 4.? Debility 5.? ESRD on hemodialysis 6.? Anemia of chronic disease 7.? Bilateral lower extremity venous stasis wounds 8.? Gout 9.? Hyperlipidemia 10.? Type II DM 11. Hypertension Plan: Continue on midodrine, levothyroxine, amiodarone, metoprolol Palliative care consult Time spent coordinating all aspects of patient's care, discussing with nursinminutes Visit Charges Inpatient E&M: 98663 Subs Hosp L2
--- NOTE | 2021-11-20 14:51 | CASEMGMT ---
SW completed a Healthcare Power of Drug Safety Specialist with patient. She did not want to complete a Healthcare Living Will. Patient named her son Dada as her Healthcare Power of Drug Safety Specialist. Copies were made and given to patient along with original. A copy was also placed in patient's chart. Monica ARIAS
[2021-11-20 15:46] LABS: Bedside Glucose 132 mg/dL (74-106)
[2021-11-20] MEDS: Allopurinol 100 MG Tablet PO (20:47)
[2021-11-20] MEDS: Insulin Glargine-YFGN 100 UNIT/ML Pen 12 UNIT SC (20:52)
[2021-11-20 22:20] LABS: Bedside Glucose 121 mg/dL (74-106)
[2021-11-21] VITALS (14 sets, daily range): BP systolic 98–134; BP diastolic 39–56; PULSE 43–63; RESP 16–20; TEMP 36.1–36.8; O2SAT 95–99
[2021-11-21] MEDS: Levothyroxine 100 MCG Tablet PO (05:57)
[2021-11-21 06:09] LABS: Albumin, Serum 1.5 g/dL (3.2-5.0); BUN 32 mg/dL (7-18); BUN/Creat Ratio 6.3 RATIO (10-20); Calcium,Total 8.2 mg/dL (8.5-10.1); Chloride 100 mmol/L (98-107); Creatinine, Serum 5.07 mg/dL (0.55-1.02); EST Glomerular Filtration Rate 9 mL/min (>60); Est Glom Filt Rate - Afr Amer 10 mL/min (>60); Estimated Creatinine Clearance 6.01 ml/min; Glucose 83 mg/dL (74-106); Phosphorus 3.1 mg/dL (2.5-4.9); Potassium 3.7 mmol/L (3.5-5.1); Sodium Level 135 mmol/L (136-145); Vancomycin, Random Level 26.2 ug/mL (0.0-15.0)
[2021-11-21 06:50] LABS: Bedside Glucose 78 mg/dL (74-106)
[2021-11-21 07:46] LABS: Absolute Lymphocyte Count 1.37 X10^3/uL (0.83-4.51); Absolute Neutrophil Count 8.1 X10^3/uL (2.0-7.7); Basophil# 0.06 X10^3/uL; Basophil% 0.5 % (0-1); Eosinophil# 0.27 X10^3/uL; Eosinophils% 2.5 % (0-5); Hematocrit 26.8 % (37-47); Hemoglobin 8.9 g/dL (12.0-15.0); Lymphocyte # 1.37 X10^3/ul (0.83-4.51); Lymphocyte % 12.5 % (19-41); Mean Corp Hgb Conc 33.2 g/dL (32-36); Mean Corpuscular Hgb 33.2 pg (27.0-32.0); Mean Platelet Vol. 9.8 fl (6.2-12.0); Monocyte# 1.05 X10^3/uL; Monocyte% 9.6 % (0-10); NRBC Flagged by Analyzer 0 % (0-5); Neutrophil # 8.07 X10^3/uL (2.7-7.7); Neutrophil % 73.6 % (47-70); Platelet Count 202 K/mm3 (150-450); RBC Distribution Width SD 54.4 fl (35.1-43.9); Red Blood Count 2.68 M/mm3 (4.2-5.4)
--- NOTE | 2021-11-21 09:36 | PCM.RX.CS ---
Consult Pharmacy has been consulted to manage selected antiobiotic: Vancomycin Type of Consult: Follow-up Suspected Infection: Skin/Soft tissue Prior Doses of Antibiotics Received/Current Regimen: Last dose received was 500mg iv x 1 post dialysis on 11.19.21. Labs: Sodium 135 mmol/L (136-145) L 11/21/21 05:30 Potassium 3.7 mmol/L (3.5-5.1) 11/21/21 05:30 Chloride 100 mmol/L (98-107) 11/21/21 05:30 Carbon Dioxide 26.0 mmol/L (21.0-32.0) 11/21/21 05:30 Anion Gap 14 (5-15) 11/19/21 05:40 BUN 32 mg/dL (7-18) H 11/21/21 05:30 Creatinine 5.07 mg/dL (0.55-1.02) H 11/21/21 05:30 Est GFR (MDRD) Af Amer 10 mL/min (>60) L 11/21/21 05:30 Est GFR (MDRD) Non-Af 9 mL/min (>60) L 11/21/21 05:30 BUN/Creatinine Ratio 6.3 RATIO (10-20) L 11/21/21 05:30 Glucose 83 mg/dL (74-106) 11/21/21 05:30 Random Vancomycin 26.2 ug/mL (0.0-15.0) H 11/21/21 05:30 Microbiology: Microbiology 11/18/21 18:43 Urine, Clean Catch Urine Culture - Final Mixed Gram Pos & Gram Neg Org 11/18/21 18:43 Urine, Clean Catch Legionella Antigen - Final 11/18/21 18:43 Urine, Clean Catch Streptococcus pneumoniae Antigen (M - Final Weight used for dosin.9 kg Estimated Creatinine Clearance: ~6ml/min Goal Trough: 15-20 mcg/mL Pharmacy Plan for Drug Dosing: Random level today was 26.2. Will not order any further dosing at this time due to level being >20mcg/ml. A new random level has been ordered for before next dialysis session on 11.23.21. Pharmacy Service will continue to monitor and adjust dosing as required. Follow-Up Labs: Trough Vancomycin - random level 11.23.21 @0600
[2021-11-21] MEDS: Acetaminophen 325 MG Tablet 650 MG PO ×2 (10:11→16:35)
[2021-11-21] MEDS: Juven (unflavored) Packet 1 PACKET PO ×2 (10:11→16:36)
[2021-11-21] MEDS: Midodrine HCl 5 MG Tablet 10 MG PO ×3 (10:12→16:35)
[2021-11-21] MEDS: Famotidine 20 MG Tablet PO (10:12)
--- NOTE | 2021-11-21 10:53 | CASEMGMT ---
PT/OT evaluations and progress notes were sent to [facility]. Moniac Dash CUFF SETTER JUANA
--- NOTE | 2021-11-21 11:04 | PN.HOSP_ITS ---
Documented by User: Maite Tineo NP, [employer]CHN[employer]-C 11/21/21 11:09 Subjective Subjective Patient seen and examined. Son at bedside. Continued generalized weakness. Otherwise denies symptoms or complaints. Plan for SNF when medically stable. Await ID input. Objective Data Objective Data Vital Signs: Vital Signs Temp Pulse Resp BP Pulse Ox O2 Del Method O2 Flow Rate 98.3 F 56 L 18 113/49 L 97 Nasal Cannula 2 11/21/21 09:45 11/21/21 09:45 11/21/21 09:45 11/21/21 09:45 11/21/21 09:45 11/21/21 09:58 11/21/21 09:58 Oxygen Flow Rate (L/min) 2 Oxygen Delivery Method Nasal Cannula Weight: 171 lb 11.841 oz Body Mass Index (BMI) 34.1 Intake & Output: Intake and Output for Last 24 Hours 11/19/21 11/20/21 11/21/21 23:59 23:59 23:59 Intake Total 1564.54 / 1564.54 610 / 610 100 / 100 Output Total 1050 / 1050 0 / 0 Balance 514.54 / 514.54 610 / 610 100 / 100 Lab / Micro Data Result Diagrams: 11/21/21 05:30 11/21/21 05:30 Labs: Laboratory Results - last 24 hr 11/20/21 11:15: POC Glucose 148 H 11/20/21 15:16: POC Glucose 132 H 11/20/21 20:51: POC Glucose 121 H 11/21/21 05:30: WBC 11.0, RBC 2.68 L, Hgb 8.9 L, Hct 26.8 L, MCV 100.0 H, MCH 33.2 H, MCHC 33.2, RDW Std Deviation 54.4 H, RDW Coeff of Lisy 15.0 H, Plt Count 202, MPV 9.8, Immature Gran % (Auto) 1.300 H, Neut % (Auto) 73.6 H, Lymph % (Auto) 12.5 L, [place] % (Auto) 9.6, Eos % (Auto) 2.5, Baso % (Auto) 0.5, Absolute Neuts (auto) 8.1 H, Absolute Lymphs (auto) 1.37, Nucleated RBC % 0 11/21/21 05:30: Sodium 135 L, Potassium 3.7, Chloride 100, Carbon Dioxide 26.0, BUN 32 H, Creatinine 5.07 H, Estim Creat Clear Calc 6.01, Est GFR (MDRD) Af Amer 10 L, Est GFR (MDRD) Non-Af 9 L, BUN/Creatinine Ratio 6.3 L, Glucose 83, Calcium 8.2 L, Phosphorus 3.1, Albumin 1.5 L 11/21/21 05:30: Random Vancomycin 26.2 H 11/21/21 06:28: POC Glucose 78 Micro: Microbiology 11/18/21 18:43 Urine, Clean Catch Urine Culture - Final Mixed Gram Pos & Gram Neg Org 11/18/21 18:43 Urine, Clean Catch Legionella Antigen - Final 11/18/21 18:43 Urine, Clean Catch Streptococcus pneumoniae Antigen (M - Final Physical Exam Const alert and oriented x3 Constitutional Narrative: Slow to respond. HEENT normocephalic and moist oral mucous membranes Eyes PERRL, EOMs intact bilaterally and conjunctivae normal Neck no lymphadenopathy Resp clear to auscultation bilaterally Auscultation: diminished lung sounds Cardio regular rate, regular rhythm and no murmurs Peripheral Pulses: pulses 2+ throughout GI normal to inspection, nondistended, normoactive bowel sounds, non-tender and non-distended Extremity normal to inspection Skin no rashes or lesions noted Skin Narrative: Bilateral lower extremity macerated tissue with scattered superficial wounds.? Hadley wraps in place. Lesions: no lesions Rashes: no rashes Trauma: no lacerations or abrasions Neuro CN's II-XII intact bilaterally, no focal motor deficits, no sensory deficits noted and deep tendon reflexes 2+ bilaterally Psych mental status grossly normal and affect normal Assessment & Plan Assessment/Plan (1) Atrial fibrillation: (2) Complicated urinary tract infection: PLAN: Plan 1.? Acute complicated UTI with likely associated bacteremia-blood culture from [facility] preliminary growing Klebsiella.? Chest x-ray at out side facility unremarkable.? Continue IV Zosyn.?DC vanc. Kidney and bladder ultrasound normal. Await ID input. 2. Hypotension-initiated on midodrine.? BP improved. 3. Paroxysmal atrial fibrillation with RVR-cardiology consulted.? Echocardiogram demonstrated an EF of 55%, mild mitral valve insufficiency, RVSP estimated to be 43 mmHg.? Initiated on Eliquis 2.5 mg twice daily.? Converted to sinus rhythm.? Amiodarone drip discontinued.? Continue oral amiodarone and metoprolol. 4. Hypothyroidism- TSH 0.04, free T4 1.78.? Reduce levothyroxine to 100 mcg daily with repeat thyroid studies in 4 to 6 weeks. 5. Debility with recent falls-PT/OT.? Case management/social work consulted for discharge planning.? Imaging without acute fractures. 6. End-stage renal disease on hemodialysis-nephrology consulted for dialysis.? Midodrine added for blood pressure support. 7. Anemia of chronic disease-appears stable. 8. Chronic bilateral lower extremity venous stasis wounds-wound RN consult.? Hadley wraps bilateral lower extremities. 9. History of gout-on allopurinol. 10. Type 2 diabetes [id number] with sliding scale insulin.? Continue home insulin regimen. 11. Hyperlipidemia-continue statin. 12. Hypertension-now stable. 13. GERD-on famotidine. DVT prophylaxis-Eliquis This patient was seen by LOURDES LopezC under the supervision of Dr. Rogers. Discharge planning: SNF pending ID input/medically stable. Time spent examining patient, reviewing data and subsequent management of care: 14 minutes Documented by User: Dr. Ingrid Rogers MD 11/21/21 14:24 Objective Data Lab / Micro Data Result Diagrams: 11/21/21 05:30 11/21/21 05:30 Assessment & Plan Assessment/Plan (1) Atrial fibrillation: (2) Complicated urinary tract infection: Charges/Coding Addendum Addendum: This patient was seen in conjunction with Maite Tineo NP.? I have independently interviewed and examined the patient and reviewed pertinent historical, laboratory, and other data. I have reviewed her note and concur with her documentation Patient was seen and examined. She remains lethargic. Had dialysis done today. Physical Exam: Gen: Comfortable, not pale, not jaundiced, appears lethargic, on 2 L of oxygen, fluid overload CVS:HS I +II, regular, no murmurs RESP: Diminished at lung bases GI: BS present and normal, soft, nontender, no palpable organs EXT: Generalized edema ASSESSMENT: 1.? Paroxysmal A. fib with RVR 2.? Hyperthyroidism 3.? Acute Klebsiella complicated UTI 4.? Debility 5.? ESRD on hemodialysis 6.? Anemia of chronic disease 7.? Bilateral lower extremity venous stasis wounds 8.? Gout 9.? Hyperlipidemia 10.? Type II DM 11. Hypertension Plan: Appreciate ID consult Continue on IV Zosyn; plans for Augmentin at discharge Continue on midodrine, levothyroxine, amiodarone, metoprolol Time spent coordinating all aspects of patient's care, discussing with nursin minutes Visit Charges Inpatient E&M: 24698 Subs Hosp L2
[2021-11-21 11:20] LABS: Bedside Glucose 96 mg/dL (74-106)
--- NOTE | 2021-11-21 11:24 | DIALYSIS ---
Hemodialysis x 3hrs today. Patient hypotensive throughout tx. UF -500mL removed. Catheter closed and capped. Pt stable and alert. Report to ADALID Solomon
--- NOTE | 2021-11-21 11:28 | CASEMGMT ---
Addendum entered by Clara Motta 11/21/21 14:47: Call from Frances at [facility] and she states she has faxed all pt clinicals to [facility] and marked pt as discharged from them 11/16/21. Frances states [facility] will set pt up with chair time once they figure obtain pt d/c date. Kylie KING aware and notified [facility] at this time. Per [facility], they have accepted pt and will plan on 1st date of dialysis as 11/23/21. CM to follow. Kimberly CORDOBA CM Original Note: Pt is active with [facility] for OP HD MWF and plan is for pt to go to [facility] at discharge where they have [facility] dialysis on site. Pt has been there before. Per Kylie KIGN, [facility] is requesting that [facility] CM get 'transfer' set up for pt from [facility] to [place]. Call to Frances at [facility] to notify and she states she is already aware and will fax needed information to [place] as soon as she is able. Frances states there is nothing that [facility] CM needs to complete as it's a transfer within there system. Frances states she will notify this RN CM when chair time obtained at [facility]. Kylie KING aware, voices understanding. CM to follow. Kimberly CORDOBA CM
--- NOTE | 2021-11-21 11:28 | CASEMGMT ---
Pt is active with [facility] for OP HD MWF and plan is for pt to go to [facility] at discharge where they have [facility] dialysis on site. Pt has been there before. Per Kylie KING, [facility] is requesting that [facility] CM get 'transfer' set up for pt from [facility] to [place]. Call to Daisy at [facility] to notify and she states she is already aware and will fax needed information to [place] as soon as she is able. Daisy states there is nothing that [facility] CM needs to complete as it's a transfer within there system. Daisy states she will notify this RN CM when chair time obtained at [facility]. Kylie KING aware, voices understanding. CM to follow. SStdianne RN CM
--- NOTE | 2021-11-21 11:35 | PCM.PN.REN ---
Subjective Subjective more alert today Objective Data Objective Data Vital Signs: Vital Signs Temp Pulse Resp BP Pulse Ox O2 Del Method O2 Flow Rate 98.3 F 56 L 18 113/49 L 97 Nasal Cannula 2 11/21/21 09:45 11/21/21 09:45 11/21/21 09:45 11/21/21 09:45 11/21/21 09:45 11/21/21 09:58 11/21/21 09:58 Oxygen Flow Rate (L/min) 2 Oxygen Delivery Method Nasal Cannula Weight: 77.9 kg Body Mass Index (BMI) 34.1 Intake & Output: Intake and Output for Last 24 Hours 11/19/21 11/20/21 11/21/21 23:59 23:59 23:59 Intake Total 1564.54 / 1564.54 610 / 610 100 / 100 Output Total 1050 / 1050 0 / 0 Balance 514.54 / 514.54 610 / 610 100 / 100 Lab / Micro Data Result Diagrams: 11/21/21 05:30 11/21/21 05:30 Labs: Laboratory Results - last 24 hr 11/20/21 11:15: POC Glucose 148 H 11/20/21 15:16: POC Glucose 132 H 11/20/21 20:51: POC Glucose 121 H 11/21/21 05:30: WBC 11.0, RBC 2.68 L, Hgb 8.9 L, Hct 26.8 L, MCV 100.0 H, MCH 33.2 H, MCHC 33.2, RDW Std Deviation 54.4 H, RDW Coeff of Lisy 15.0 H, Plt Count 202, MPV 9.8, Immature Gran % (Auto) 1.300 H, Neut % (Auto) 73.6 H, Lymph % (Auto) 12.5 L, [place] % (Auto) 9.6, Eos % (Auto) 2.5, Baso % (Auto) 0.5, Absolute Neuts (auto) 8.1 H, Absolute Lymphs (auto) 1.37, Nucleated RBC % 0 11/21/21 05:30: Sodium 135 L, Potassium 3.7, Chloride 100, Carbon Dioxide 26.0, BUN 32 H, Creatinine 5.07 H, Estim Creat Clear Calc 6.01, Est GFR (MDRD) Af Amer 10 L, Est GFR (MDRD) Non-Af 9 L, BUN/Creatinine Ratio 6.3 L, Glucose 83, Calcium 8.2 L, Phosphorus 3.1, Albumin 1.5 L 11/21/21 05:30: Random Vancomycin 26.2 H 11/21/21 06:28: POC Glucose 78 11/21/21 11:00: POC Glucose 96 Micro: Microbiology 11/18/21 18:43 Urine, Clean Catch Urine Culture - Final Mixed Gram Pos & Gram Neg Org 11/18/21 18:43 Urine, Clean Catch Legionella Antigen - Final 11/18/21 18:43 Urine, Clean Catch Streptococcus pneumoniae Antigen (M - Final Physical Exam Narrative no obvious distress no pallor no icterus no JVD s1s2 no murmurs lungs clear abdomen soft no organomegaly no edema no cyanosis Assessment & Plan Assessment/Plan (1) ESRD (end stage renal disease): PLAN: HD today. seen on HD. BP somewhat better than friday. more alert. mumbling mostly. WBC is better. being treated for sepsis. HR is better..
[2021-11-21] MEDS: APIXABAN 2.5 MG TABLET PO ×2 (11:41→22:03)
[2021-11-21] MEDS: Metoprolol Tartrate 25 MG Tablet 12.5 MG PO (11:42)
[2021-11-21] MEDS: Amiodarone 200 MG Tablet 100 MG PO (11:42)
--- NOTE | 2021-11-21 13:07 | CON.PCM.ID_ITS ---
Assessment & Plan Assessment/Plan (1) ESRD (end stage renal disease): (2) Bacteremia due to Gram-negative bacteria: PLAN: Fevere resolved. Reviewed [facility] records, 2 of 2 bcx with k. pneumo. R to ampicillin. On zosyn. Ok for d/c home on 7 more days augmentin, 500mg daily (take dose after dialysis on days she gets dialyzed.) Will follow, thank you, d/w primary team HPI Consult Data Date of Consult: 11/21/21 HPI Narrative Reason for Consultation: bacteremia HPI Narrative: ARLETTE RIVERA, is a 86 F with ESRD, on HD MWF via L chest permacath, presented to [facility] 11/17 with weakness for about 5 days, falls at home. Some fever and chills. No abd pain, no dysuria, no cough, no SOB, no problems with permacath. On admit did report some dysuria. Transfered here, has been on vanc/zosyn, now vanc off. Bcx x2 at [facility] with klebs. Feeling better. Full ROS performed and neg except as noted above. [facility] Medical History Arthritis Chronic kidney disease, stage IV (severe) Congestive heart failure Debility Dependent edema Diabetes mellitus Diverticulosis large intestine w/o perforation or abscess w/o bleeding Easy bruising Gastric reflux Gout Hiatal hernia High cholesterol History of atrial fibrillation History of CHF (congestive heart failure) History of echocardiogram History of edema History of renal dialysis History of renal disease History of stress test Hx of vaginal delivery Hypertension Hypothyroidism Immobility Injury of head and neck Insulin dependent diabetes mellitus Kidney stone Leg edema Leg swelling Non-smoker Obesity (BMI 30-39.9) On home oxygen therapy Parkinson's disease Parkinsons disease Post-menopausal Skin tear Thyroid disease Uses wheelchair Valvular heart disease Venous hypertension, chronic, with ulcer Venous stasis ulcer Walker as ambulation aid Wears dentures Wears glasses Home Medications mviligms-cde-jdone acid 0.4 mg-lycopene 300 mcg-lutein 250 mcg tablet (Centrum Silver) 1 ea PO DAILY SUPPLEMENT 06/20/17 [History Last Taken 11/16/21] allopurinol 100 mg tablet 100 mg PO QHS gout 04/15/18 [History Last Taken 11/16/21] acetaminophen 500 mg tablet 1,000 mg PO TID 04/18/18 [Rx Last Taken Unknown] insulin lispro 100 unit/mL subcutaneous pen (Humalog KwikPen (U-100) Insulin) See Protocol subcut ACHS 04/18/18 [Rx Last Taken Unknown] Lactobacillus acidophilus-Lactbacillus bifidus 1 billion cell capsule 1 cap PO DAILY Check with primary doctor 06/19/21 [History Last Taken Unknown] famotidine 20 mg tablet 20 mg PO DAILY Check with primary doctor 06/19/21 [History Last Taken 11/16/21] atorvastatin 10 mg tablet 20 mg PO DAILY cholesterol 11/06/21 [History Last Taken 11/16/21] insulin glargine 100 unit/mL (3 mL) subcutaneous pen (Lantus Solostar U-100 Insulin) 12 unit subcut QPM Check with primary doctor 11/06/21 [History Last Taken Unknown] levothyroxine 137 mcg tablet 150 mcg PO DAILY thyroid 11/06/21 [History Last Taken 11/17/21] metoprolol tartrate 50 mg tablet 12.5 mg PO DAILY heart rate 11/06/21 [History Last Taken 11/17/21] Allergy/AdvReac Type Severity Reaction Status Date / Time TAYLOR Inhibitors AdvReac Other Verified 11/15/21 10:21 amitriptyline [From Elavil] AdvReac Other Verified 11/15/21 10:21 ciprofloxacin [From Cipro] AdvReac Other Verified 11/15/21 10:21 lisinopril AdvReac Other Verified 11/15/21 10:21 Family History Son Diabetes Hypertension Surgical History Hx of colonoscopy Hx of lithotripsy Social History (Updated 11/17/21 @ 19:[address] Lore Blanco DO) household members: spouse housing: house Smoking Status: Never smoker alcohol intake: never substance use type: does not use Physical Exam Const alert and no apparent distress General Appearance: cooperative HEENT normocephalic and head/scalp atraumatic Eyes PERRL and EOMs intact bilaterally Neck supple and No nodes Resp normal air movement and clear to auscultation bilaterally Cardio regular rate and regular rhythm GI soft to palpation, non-tender and non-distended Extremity General Extremity: edema Skin no rashes or lesions noted Neuro CN's II-XII intact bilaterally Lab / Micro Data Attestation: I reviewed the patient's lab results. Result Diagrams: 11/21/21 05:30 11/21/21 05:30 Labs: Laboratory Results - last 24 hr 11/20/21 15:16: POC Glucose 132 H 11/20/21 20:51: POC Glucose 121 H 11/21/21 05:30: WBC 11.0, RBC 2.68 L, Hgb 8.9 L, Hct 26.8 L, MCV 100.0 H, MCH 33.2 H, MCHC 33.2, RDW Std Deviation 54.4 H, RDW Coeff of Lisy 15.0 H, Plt Count 202, MPV 9.8, Immature Gran % (Auto) 1.300 H, Neut % (Auto) 73.6 H, Lymph % (Auto) 12.5 L, [place] % (Auto) 9.6, Eos % (Auto) 2.5, Baso % (Auto) 0.5, Absolute Neuts (auto) 8.1 H, Absolute Lymphs (auto) 1.37, Nucleated RBC % 0 11/21/21 05:30: Sodium 135 L, Potassium 3.7, Chloride 100, Carbon Dioxide 26.0, BUN 32 H, Creatinine 5.07 H, Estim Creat Clear Calc 6.01, Est GFR (MDRD) Af Amer 10 L, Est GFR (MDRD) Non-Af 9 L, BUN/Creatinine Ratio 6.3 L, Glucose 83, Calcium 8.2 L, Phosphorus 3.1, Albumin 1.5 L 11/21/21 05:30: Random Vancomycin 26.2 H 11/21/21 06:28: POC Glucose 78 11/21/21 11:00: POC Glucose 96
--- NOTE | 2021-11-21 14:47 | CASEMGMT ---
CHRISTINE notified [facility] that patient will likely be discharged tomorrow or Friday. Bridget at [facility] notified CHRISTINE that patient is approved and can start dialysis at their facility Friday. Plan: d/c to [facility] under skilled level of care. 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
[2021-11-21 16:50] LABS: Bedside Glucose 110 mg/dL (74-106)
[2021-11-21] MEDS: Allopurinol 100 MG Tablet PO (22:03)
[2021-11-21] MEDS: Insulin Glargine-YFGN 100 UNIT/ML Pen 12 UNIT SC (22:03)
[2021-11-21] MEDS: Atorvastatin Calcium 20 MG Tablet PO (22:03)
[2021-11-21] MEDS: Nystatin Powder 15gm Bottle 1 APPLIC TOPICAL (22:12)
[2021-11-21] MEDS: Menthol/Lanolin/Calamine/Znox 113 GM Tube 1 APPLIC TOPICAL (22:13)
[2021-11-22] VITALS (11 sets, daily range): BP systolic 125–140; BP diastolic 44–53; PULSE 37–56; RESP 12–16; TEMP 36.3–36.7; O2SAT 94–100
[2021-11-22] LABS: Bedside Glucose 121 mg/dL (74-106)
[2021-11-22 06:01] LABS: Absolute Lymphocyte Count 1.29 X10^3/uL (0.83-4.51); Absolute Neutrophil Count 6.6 X10^3/uL (2.0-7.7); Basophil# 0.06 X10^3/uL; Basophil% 0.7 % (0-1); Eosinophil# 0.17 X10^3/uL; Eosinophils% 1.9 % (0-5); Hematocrit 27.6 % (37-47); Hemoglobin 8.8 g/dL (12.0-15.0); Lymphocyte # 1.29 X10^3/ul (0.83-4.51); Lymphocyte % 14.3 % (19-41); Mean Corp Hgb Conc 31.9 g/dL (32-36); Mean Corpuscular Hgb 32.4 pg (27.0-32.0); Mean Corpuscular Volume 101.5 fL (81-99); Mean Platelet Vol. 9.7 fl (6.2-12.0); Monocyte# 0.79 X10^3/uL; Monocyte% 8.8 % (0-10); NRBC Flagged by Analyzer 0 % (0-5); Neutrophil # 6.55 X10^3/uL (2.7-7.7); Neutrophil % 72.5 % (47-70); Platelet Count 211 K/mm3 (150-450); RBC Distribution Width CV 14.8 % (11.6-14.6); Red Blood Count 2.72 M/mm3 (4.2-5.4)
[2021-11-22] MEDS: Levothyroxine 100 MCG Tablet PO (06:23)
[2021-11-22 06:44] LABS: Albumin, Serum 1.6 g/dL (3.2-5.0); BUN 20 mg/dL (7-18); BUN/Creat Ratio 5.3 RATIO (10-20); Calcium,Total 8.2 mg/dL (8.5-10.1); Chloride 101 mmol/L (98-107); Creatinine, Serum 3.77 mg/dL (0.55-1.02); EST Glomerular Filtration Rate 12 mL/min (>60); Est Glom Filt Rate - Afr Amer 15 mL/min (>60); Estimated Creatinine Clearance 8.08 ml/min; Glucose 77 mg/dL (74-106); Phosphorus 2.6 mg/dL (2.5-4.9); Potassium 3.8 mmol/L (3.5-5.1); Sodium Level 136 mmol/L (136-145)
[2021-11-22 06:51] LABS: Bedside Glucose 88 mg/dL (74-106)
[2021-11-22] MEDS: Midodrine HCl 5 MG Tablet 10 MG PO ×3 (08:33→16:08)
[2021-11-22] MEDS: Nystatin Powder 15gm Bottle 1 APPLIC TOPICAL (08:33)
[2021-11-22] MEDS: Juven (unflavored) Packet 1 PACKET PO (08:33)
[2021-11-22] MEDS: Menthol/Lanolin/Calamine/Znox 113 GM Tube 1 APPLIC TOPICAL (08:33)
[2021-11-22] MEDS: APIXABAN 2.5 MG TABLET PO (08:33)
[2021-11-22] MEDS: Amiodarone 200 MG Tablet 100 MG PO (08:33)
[2021-11-22] MEDS: Acetaminophen 325 MG Tablet 650 MG PO (08:44)
[2021-11-22] MEDS: Famotidine 20 MG Tablet PO (09:29)
--- NOTE | 2021-11-22 11:01 | PCM.TXEXTCAR ---
Diet Diet Order/Speech Therapy: 11/18/21 10:38 Diet: Renal - ConsCHO - Leonardo Cont Food consistency:: Mechanical (Minced/Moist) Liquid Consistency:: Regular/Thin Is pt able to select menu?: No Diet Comments: Soft, minced veggies How many daily calories?: 1800 calorie Routine Orders/Code Status Suppository Type: Dulcolax 10mg Suppository Frequency: Daily PRN Routine Lab Work: CBC (within 3 days) and - (CMP within 3 days) Code Status: Full Code Wound(s) BLE: Wound Type: venous stasis changes with healed wounds Dressing Change: dry dressing buttocks: Wound Type: Pressure Injury right arm: Wound Type: scattered dry skin tears Therapies Weight Bearing: Weight bearing as tolerated Physical Therapy: Eval and Treat Occupational Therapy: Eval and Treat Problem/Diagnosis (1) Atrial fibrillation: Status: Acute Code(s): I48.91 - Unspecified atrial fibrillation (2) Complicated urinary tract infection: Status: Acute Code(s): N39.0 - Urinary tract infection, site not specified Plan 1.? Acute Klebsiella pneumoniae bacteremia/complicated UTI 2. Hypotension- 3. Paroxysmal atrial fibrillation with RVR 4. Hyperthyroidism 5. Debility with recent falls. 6. End-stage renal disease on hemodialysis 7. Anemia of chronic disease 8. Chronic bilateral lower extremity venous stasis wounds 9. History of gout 10. Type 2 diabetes mellitus 11. Hyperlipidemia 12. Hypertension 13. GERD Allergies/Procedures Done in Hospital Allergies TAYLOR Inhibitors Adverse Reaction (Verified 11/15/21 10:21) Other SON REPORTS COUGH amitriptyline [From Elavil] Adverse Reaction (Verified 11/15/21 10:21) Other SON REPORTS COUGH ciprofloxacin [From Cipro] Adverse Reaction (Verified 11/15/21 10:21) Other SON REPORTS COUGH lisinopril Adverse Reaction (Verified 11/15/21 10:21) Other COUGH Procedures: 2-D Echocardiogram Type of Care/Length of Stay Estimated LOS: Convalescent Care Less Than 30 days Type of Care Needed: Skilled Rehab Potential: Good Prognosis: Good Additional Orders/Day of Discharge Day of Discharge: 11/22/21 Dietary and Speech Recommendations Dietitian Recommendations/Changes: Renal- General, 1800 CCD diet Nishant BID with medpass to promote wound healing Discharge Plan Admission Admit Date/Time: 11/17/21 18:43 Primary Reason for Your Visit: Klebsiella pneumoniae bacteremia Attending Provider: Ingrid Rogers Primary Care Provider: Ashlie Bull Consulting Providers: Nargis Mina ; Estefania Joseph ; Lore Blanco ; Osiel Schafer Instructions Additional Instructions / Restrictions: Repeat TSH in 4 weeks Dialysis on Friday as planned Discharge Orders/Prescriptions Prescriptions: New amiodarone 200 mg Tablet 100 mg PO DAILY 30 Days Qty: 0 0RF midodrine 5 mg Tablet 10 mg PO TIDCM Qty: 0 0RF levothyroxine 100 mcg Tablet 100 mcg PO 0600 Qty: 0 0RF nystatin [Nyamyc] 100,000 unit/gram Powder 1 applic topical BID Qty: 0 0RF Protocol: *Topical Application Instructions APPLICATION INSTRUCTIONS: apply to abdomen and groin menthol-zinc oxide [Calmoseptine] 0.44-20.6 % Ointment 1 applic topical BID Qty: 0 0RF Protocol: *Topical Application Instructions APPLICATION INSTRUCTIONS: apply to coccyx Eliquis 2.5 mg Tablet 2.5 mg PO BID Qty: 0 0RF Nishant (with collagen) 7-7-1.5 gram Powder In Packet 1 packet PO BIDCM Qty: 0 0RF amoxicillin-pot clavulanate [Augmentin] 500-125 mg tablet 1 tab PO DAILY 6 Days Qty: 6 0RF Rx Instructions: stop date 11/28/21 Continued Centrum Silver 1 EACH tablet 1 ea PO DAILY atorvastatin 10 mg tablet 20 mg PO DAILY allopurinol 100 MG tablet 100 mg PO QHS acetaminophen 500 MG tablet 1,000 mg PO TID 0RF insulin lispro [Humalog KwikPen Insulin] 100 UNIT/ML insulin pen See Protocol subcut ACHS 0RF Protocol: 2. Sliding Scale Insulin Low-Med Dosing Condition: 150-209 mg/dl = 1 unit Condition: 210-269 mg/dl = 2 units Condition: 270-329 mg/dl = 3 units Condition: 330-389 mg/dl = 4 units Condition: 390-449 mg/dl = 5 units Condition: Greater than 449 call physician Protocol Text: - Use for Total Daily Dose of Insulin 28-36 units - Average size patients LOW MEDIUM DOSING ALGORITHM metoprolol tartrate 50 mg tablet 12.5 mg PO DAILY famotidine 20 mg Tablet 20 mg PO DAILY Lactobacillus acidoph-L. bifid 1 billion cell Capsule 1 cap PO DAILY Lantus Solostar U-100 Insulin 100 unit/mL (3 mL) insulin pen 12 unit SUBCUT QPM Discontinued levothyroxine 137 mcg tablet 150 mcg PO DAILY Referrals / Follow Up: Ashlie Bull MD [Primary Care Provider] - Disposition Disposition (needs filled in before D/C Order can be placed): Senior Living Facility
[2021-11-22 11:55] LABS: Bedside Glucose 125 mg/dL (74-106)
--- NOTE | 2021-11-22 12:02 | PCM.PN.HOSP ---
Objective Data Objective Data Vital Signs: Vital Signs Temp Pulse Resp BP Pulse Ox O2 Del Method O2 Flow Rate 97.6 F L 52 L 16 138/53 H 100 Nasal Cannula 2.5 11/22/21 11:19 11/22/21 11:19 11/22/21 11:19 11/22/21 11:19 11/22/21 11:19 11/22/21 11:19 11/22/21 11:20 Oxygen Flow Rate (L/min) 2.5 Oxygen Delivery Method Nasal Cannula Weight: 78.3 kg Body Mass Index (BMI) 34.1 Intake & Output: Intake and Output for Last 24 Hours 11/20/21 11/21/21 11/22/21 23:59 23:59 23:59 Intake Total 610 / 610 510 / 540 80 / 80 Output Total 0 / 0 Balance 610 / 610 510 / 540 80 / 80 Lab / Micro Data Result Diagrams: 11/22/21 05:27 11/22/21 05:27 Labs: Laboratory Results - last 24 hr 11/21/21 16:30: POC Glucose 110 H 11/21/21 21:56: POC Glucose 121 H 11/22/21 05:27: WBC 9.0, RBC 2.72 L, Hgb 8.8 L, Hct 27.6 L, MCV 101.5 H, MCH 32.4 H, MCHC 31.9 L, RDW Std Deviation 55.0 H, RDW Coeff of Lisy 14.8 H, Plt Count 211, MPV 9.7, Immature Gran % (Auto) 1.800 H, Neut % (Auto) 72.5 H, Lymph % (Auto) 14.3 L, [place] % (Auto) 8.8, Eos % (Auto) 1.9, Baso % (Auto) 0.7, Absolute Neuts (auto) 6.6, Absolute Lymphs (auto) 1.29, Nucleated RBC % 0 11/22/21 05:27: Sodium 136, Potassium 3.8, Chloride 101, Carbon Dioxide 30.0, BUN 20 H, Creatinine 3.77 H, Estim Creat Clear Calc 8.08, Est GFR (MDRD) Af Amer 15 L, Est GFR (MDRD) Non-Af 12 L, BUN/Creatinine Ratio 5.3 L, Glucose 77, Calcium 8.2 L, Phosphorus 2.6, Albumin 1.6 L 11/22/21 06:25: POC Glucose 88 11/22/21 11:22: POC Glucose 125 H Micro: Microbiology 11/18/21 18:43 Urine, Clean Catch Urine Culture - Final Mixed Gram Pos & Gram Neg Org 11/18/21 18:43 Urine, Clean Catch Legionella Antigen - Final 11/18/21 18:43 Urine, Clean Catch Streptococcus pneumoniae Antigen (M - Final
--- NOTE | 2021-11-22 12:03 | PCM.TXEXTCAR ---
Diet Diet Order/Speech Therapy: 11/18/21 10:38 Diet: Renal - ConsCHO - Leonardo Cont Food consistency:: Mechanical (Minced/Moist) Liquid Consistency:: Regular/Thin Is pt able to select menu?: No Diet Comments: Soft, minced veggies How many daily calories?: 1800 calorie Wound(s) BLE: Wound Type: venous stasis changes with healed wounds Dressing Change: dry dressing buttocks: Wound Type: Pressure Injury right arm: Wound Type: scattered dry skin tears Problem/Diagnosis (1) Atrial fibrillation: Status: Acute Code(s): I48.91 - Unspecified atrial fibrillation (2) Complicated urinary tract infection: Status: Acute Code(s): N39.0 - Urinary tract infection, site not specified Allergies/Procedures Done in Hospital Allergies TAYLOR Inhibitors Adverse Reaction (Verified 11/15/21 10:21) Other SON REPORTS COUGH amitriptyline [From Elavil] Adverse Reaction (Verified 11/15/21 10:21) Other SON REPORTS COUGH ciprofloxacin [From Cipro] Adverse Reaction (Verified 11/15/21 10:21) Other SON REPORTS COUGH lisinopril Adverse Reaction (Verified 11/15/21 10:21) Other COUGH Dietary and Speech Recommendations Dietitian Recommendations/Changes: Renal- General, 1800 CCD diet Nishant BID with medpass to promote wound healing Discharge Plan Admission Admit Date/Time: 11/17/21 18:43 Attending Provider: Ingrid Rogers Primary Care Provider: Ashlie Bull Consulting Providers: Nargis Mina ; Estefania Joseph ; Lore Blanco ; Osiel Schafer Discharge Orders/Prescriptions Prescriptions: No Action Centrum Silver 1 EACH tablet 1 ea PO DAILY atorvastatin 10 mg tablet 20 mg PO DAILY levothyroxine 137 mcg tablet 150 mcg PO DAILY allopurinol 100 MG tablet 100 mg PO QHS acetaminophen 500 MG tablet 1,000 mg PO TID 0RF insulin lispro [Humalog KwikPen Insulin] 100 UNIT/ML insulin pen See Protocol subcut ACHS 0RF Protocol: 2. Sliding Scale Insulin Low-Med Dosing Condition: 150-209 mg/dl = 1 unit Condition: 210-269 mg/dl = 2 units Condition: 270-329 mg/dl = 3 units Condition: 330-389 mg/dl = 4 units Condition: 390-449 mg/dl = 5 units Condition: Greater than 449 call physician Protocol Text: - Use for Total Daily Dose of Insulin 28-36 units - Average size patients LOW MEDIUM DOSING ALGORITHM metoprolol tartrate 50 mg tablet 12.5 mg PO DAILY famotidine 20 mg Tablet 20 mg PO DAILY Lactobacillus acidoph-L. bifid 1 billion cell Capsule 1 cap PO DAILY Lantus Solostar U-100 Insulin 100 unit/mL (3 mL) insulin pen 12 unit SUBCUT QPM Referrals / Follow Up: Ashlie Bull MD [Primary Care Provider] - Disposition Discharge Orders: Discharge Patient (Routine); Ordered 11/22/21 Ordered By: Dr. Ingrid Rogers
--- NOTE | 2021-11-22 12:03 | PCM.DC.SUM ---
Providers Date of Admission: 11/17/21 Date of Discharge: 11/22/21 Primary Care Physician: Dr. Ashlie Bull MD Consultations 11/17/21 18:53 Consult: Nephrology Routine Consulting Provider: Nargis Mina Reason for Consult: ESRD on HD--> Pt sees Dr. Kurtz EMERGENT Consult: No MD Notified: Yes Date Notified: 11/17/21 Time Notified: 18:50 Method of Notification: Answering Service Consult: Onc/Wound/motion picture director Routine Comment: 11/19/21 03:44 Consult: Cardiology Routine Consulting Provider: Estefania Joseph Reason for Consult: PAF with RVR EMERGENT Consult: No Notified: Yes Date Notified: 11/19/21 Time Notified: 03:44 Method of Notification: Text 11/21/21 08:07 Consult: Infectious Disease Routine Consulting Provider: Osiel Schafer Reason for Consult: Bacteremia EMERGENT Consult: No MD Notified: Yes Date Notified: 11/21/21 Time Notified: 08:37 Method of Notification: Answering Service Reason For Visit: COMPLICATED UTI Diagnosis Discharge Diagnosis (1) Atrial fibrillation: Status: Acute Code(s): I48.91 - Unspecified atrial fibrillation (2) Complicated urinary tract infection: Status: Acute Code(s): N39.0 - Urinary tract infection, site not specified Medications at Discharge Home Medications [id number] acid 0.4 mg-lycopene 300 mcg-lutein 250 mcg tablet (Centrum Silver) 1 ea PO DAILY SUPPLEMENT 06/20/17 allopurinol 100 mg tablet 100 mg PO QHS gout 04/15/18 acetaminophen 500 mg tablet 1,000 mg PO TID 04/18/18 insulin lispro 100 unit/mL subcutaneous pen (Humalog KwikPen (U-100) Insulin) See Protocol subcut ACHS 04/18/18 Lactobacillus acidophilus-Lactbacillus bifidus 1 billion cell capsule 1 cap PO DAILY Check with primary doctor 06/19/21 famotidine 20 mg tablet 20 mg PO DAILY Check with primary doctor 06/19/21 atorvastatin 10 mg tablet 20 mg PO DAILY cholesterol 11/06/21 insulin glargine 100 unit/mL (3 mL) subcutaneous pen (Lantus Solostar U-100 Insulin) 12 unit subcut QPM Check with primary doctor 11/06/21 metoprolol tartrate 50 mg tablet 12.5 mg PO DAILY heart rate 11/06/21 amiodarone 200 mg tablet 100 mg PO DAILY 30 days #0 tabs 11/22/21 amoxicillin 500 mg-potassium clavulanate 125 mg tablet (Augmentin) 1 tab PO DAILY 6 days #6 tabs 11/22/21 apixaban 2.5 mg tablet (Eliquis) 2.5 mg PO BID #0 tabs 11/22/21 arginine 7 gram-glutam 7 gram-CaHMB 1.5 ipim-iweee-fo-min oral pwd pkt (Nishant (with collagen)) 1 packet PO BIDCM #0 ea 11/22/21 levothyroxine 100 mcg tablet 100 mcg PO 0600 #0 tabs 11/22/21 menthol 0.44 %-zinc oxide 20.6 % topical ointment (Calmoseptine) 1 applic topical BID #0 grams 11/22/21 midodrine 5 mg tablet 10 mg PO TIDCM #0 tabs 11/22/21 nystatin 100,000 unit/gram topical powder (Nyamyc) 1 applic topical BID #0 grams 11/22/21 Hospital Course Operations None Procedures 2-D Echocardiogram Summary of Care Provided Minutes Spent on Discharge: 45 Hospital Course: 86-year-old female with multiple comorbidities, ESRD on hemodialysis via a tunneled dialysis catheter who presented to [facility] [place] 11/17/21 with generalized weakness. Patient had admitted to having progressive weakness for couple of days. She has had a couple of falls. She did hit her head. CT scan was negative. Patient lives with her son. She was unable to move around. She has bilateral lower extremity edema/chronic venous stasis with wounds on the leg. She was admitted with a temperature 101.2 F, she was saturating 89% on room air. Her BUN was 26, creatinine was 4.68. Lactic was 3. Repeat was 2.3. Initial troponin was 8.6, repeat was 12.9. EKG showed old right bundle branch block. Respiratory panel was negative for influenza and COVID. Urinalysis was consistent with UTI. Patient was started on IV Zosyn and transferred here as they do not have dialysis there. Nephrology was consulted. Patient soon went into A. fib with RVR. TSH was 0.04. Free T4 is 1.78. Patient was on levothyroxine 150 mcg daily. This was decreased to 100 mcg daily. She was managed on IV amiodarone. Cardiology was consulted. She was transitioned to oral amiodarone after she converted to normal sinus rhythm. She was also maintained on low-dose metoprolol 12.5 mg daily. Patient was continued vancomycin and Zosyn here. Patient had relative hypotension and was started on midodrine. Her urine cultures as well as blood cultures from acute pulmonary grew Klebsiella pneumonia. This was sensitive to Zosyn. Vancomycin was discontinued. She was continued on oral Augmentin for 6 more days. [facility] Physical Exam Narrative Physical Exam: Gen: Comfortable, not pale, not jaundiced, appears lethargic, on 2 L of oxygen, appears fluid overloaded CVS:HS I +II, regular, no murmurs RESP: Diminished at lung bases GI: BS present and normal, soft, nontender, no palpable organs EXT: Generalized edema Weight / BMI Weight Weight: 78.3 kg Body Mass Index (BMI) 34.1 ABG / Lab / Microbiology Data Result Diagrams: 11/22/21 05:27 11/22/21 05:27 Laboratory: Laboratory Results - last 24 hr 11/21/21 16:30: POC Glucose 110 H 11/21/21 21:56: POC Glucose 121 H 11/22/21 05:27: WBC 9.0, RBC 2.72 L, Hgb 8.8 L, Hct 27.6 L, MCV 101.5 H, MCH 32.4 H, MCHC 31.9 L, RDW Std Deviation 55.0 H, RDW Coeff of Lisy 14.8 H, Plt Count 211, MPV 9.7, Immature Gran % (Auto) 1.800 H, Neut % (Auto) 72.5 H, Lymph % (Auto) 14.3 L, Lyon % (Auto) 8.8, Eos % (Auto) 1.9, Baso % (Auto) 0.7, Absolute Neuts (auto) 6.6, Absolute Lymphs (auto) 1.29, Nucleated RBC % 0 11/22/21 05:27: Sodium 136, Potassium 3.8, Chloride 101, Carbon Dioxide 30.0, BUN 20 H, Creatinine 3.77 H, Estim Creat Clear Calc 8.08, Est GFR (MDRD) Af Amer 15 L, Est GFR (MDRD) Non-Af 12 L, BUN/Creatinine Ratio 5.3 L, Glucose 77, Calcium 8.2 L, Phosphorus 2.6, Albumin 1.6 L 11/22/21 06:25: POC Glucose 88 11/22/21 11:22: POC Glucose 125 H Microbiology: Microbiology 11/18/21 18:43 Urine, Clean Catch Urine Culture - Final Mixed Gram Pos & Gram Neg Org 11/18/21 18:43 Urine, Clean Catch Legionella Antigen - Final 11/18/21 18:43 Urine, Clean Catch Streptococcus pneumoniae Antigen (M - Final D/C Instructions Discharge Diet: Low fat / Low cholesterol, 2000 mg Sodium Diet and Carb Control Diet Discharge Activity: Return to Normal Activity Meaningful Use Info Meaningful Use Diagnoses (Choose all that apply): None applicable Discharge Plan Admission Admit Date/Time: 11/17/21 18:43 Primary Reason for Your Visit: Klebsiella pneumoniae bacteremia Attending Provider: Ingrid Rogers Primary Care Provider: Ashlie Bull Consulting Providers: Nargis Mina ; Estefania Joseph ; Lore Blanco ; Osiel Schafer Instructions Additional Instructions / Restrictions: Repeat TSH in 4 weeks Dialysis on Friday as planned Patient's metoprolol can be discontinued and patient left on amiodarone if she becomes bradycardic. Discharge Orders/Prescriptions Prescriptions: New amiodarone 200 mg Tablet 100 mg PO DAILY 30 Days Qty: 0 0RF midodrine 5 mg Tablet 10 mg PO TIDCM Qty: 0 0RF levothyroxine 100 mcg Tablet 100 mcg PO 0600 Qty: 0 0RF nystatin [Nyamyc] 100,000 unit/gram Powder 1 applic topical BID Qty: 0 0RF Protocol: *Topical Application Instructions APPLICATION INSTRUCTIONS: apply to abdomen and groin menthol-zinc oxide [Calmoseptine] 0.44-20.6 % Ointment 1 applic topical BID Qty: 0 0RF Protocol: *Topical Application Instructions APPLICATION INSTRUCTIONS: apply to coccyx Eliquis 2.5 mg Tablet 2.5 mg PO BID Qty: 0 0RF Nishant (with collagen) 7-7-1.5 gram Powder In Packet 1 packet PO BIDCM Qty: 0 0RF amoxicillin-pot clavulanate [Augmentin] 500-125 mg tablet 1 tab PO DAILY 6 Days Qty: 6 0RF Rx Instructions: stop date 11/28/21 Continued Centrum Silver 1 EACH tablet 1 ea PO DAILY atorvastatin 10 mg tablet 20 mg PO DAILY allopurinol 100 MG tablet 100 mg PO QHS acetaminophen 500 MG tablet 1,000 mg PO TID 0RF insulin lispro [Humalog KwikPen Insulin] 100 UNIT/ML insulin pen See Protocol subcut ACHS 0RF Protocol: 2. Sliding Scale Insulin Low-Med Dosing Condition: 150-209 mg/dl = 1 unit Condition: 210-269 mg/dl = 2 units Condition: 270-329 mg/dl = 3 units Condition: 330-389 mg/dl = 4 units Condition: 390-449 mg/dl = 5 units Condition: Greater than 449 call physician Protocol Text: - Use for Total Daily Dose of Insulin 28-36 units - Average size patients LOW MEDIUM DOSING ALGORITHM metoprolol tartrate 50 mg tablet 12.5 mg PO DAILY famotidine 20 mg Tablet 20 mg PO DAILY Lactobacillus acidoph-L. bifid 1 billion cell Capsule 1 cap PO DAILY Lantus Solostar U-100 Insulin 100 unit/mL (3 mL) insulin pen 12 unit SUBCUT QPM Discontinued levothyroxine 137 mcg tablet 150 mcg PO DAILY Referrals / Follow Up: Ashlie Bull MD [Primary Care Provider] - Estefania Joseph MD [Med Staff - Active Staff] - 12/03/21 1:00 pm Disposition Disposition (needs filled in before D/C Order can be placed): Long-Term Facility Charges/Coding Visit Charges Inpatient E&M: 63360 Disch Hosp
--- NOTE | 2021-11-22 13:13 | CASEMGMT ---
CHRISTINE spoke with patient and her son and confirmed patient will go to [facility]. They are aware she is going today. CHRISTINE completed a convalescent in [facility]. CHRISTINE arranged for patient to get picked up at 3p via van. CHRISTINE will send orders, COVID test, and cloth picker time via [facility]. Monica Dash GRAIN PICKER JUANA
--- NOTE | 2021-11-22 13:54 | CASEMGMT ---
SW sent orders, COVID test and pear picker time [facility] [place] SW notified patient and her son that patient will get picked up at 3p. Patient also wanted to know if [facility] had any COVID patients. SW checked with [facility] and they do not. SW notified patient and her son as well as construction secretary, and RN. Plan: d/c to [facility] under skilled level of care on convalescent stay. [facility] transported patient via wheelchair at 3p. Monica Dash GAS PLANT REPAIRERIbis ARIAS
--- NOTE | 2021-11-22 14:00 | NURSING ---
Report called to ADALID Richardson at [facility] at [phone].
[2021-11-22 16:40] LABS: Bedside Glucose 96 mg/dL (74-106)
== END 2021-11-22 16:29 | disposition skilled nursing facility (03) | DRG 689 ==
PROVIDERS: Family Medicine; Admitting Provider Internal Medicine; PCP Internal Medicine; Visit Provider Internal Medicine
DX: N39.0 Urinary tract infection, site not specified (principal); N18.6 End stage renal disease; I13.2 Hypertensive heart and chronic kidney disease with heart failure and with stage 5 chronic kidney disease, or end stage renal disease; E87.1 Hypo-osmolality and hyponatremia; D63.1 Anemia in chronic kidney disease; E11.22 Type 2 diabetes mellitus with diabetic chronic kidney disease; I50.9 Heart failure, unspecified; Z79.4 Long term (current) use of insulin; I48.0 Paroxysmal atrial fibrillation; Z99.2 Dependence on renal dialysis; G20 Parkinson's disease; E03.9 Hypothyroidism, unspecified; I87.8 Other specified disorders of veins; M10.9 Gout, unspecified; K21.9 Gastro-esophageal reflux disease without esophagitis; S81.801A Unspecified open wound, right lower leg, initial encounter; S81.802A Unspecified open wound, left lower leg, initial encounter; E78.00 Pure hypercholesterolemia, unspecified; E83.42 Hypomagnesemia; I34.0 Nonrheumatic mitral (valve) insufficiency; Z91.81 History of falling; Z20.822 Contact with and (suspected) exposure to COVID-19; R09.02 Hypoxemia; Z66 Do not resuscitate; B96.1 Klebsiella pneumoniae [K. pneumoniae] as the cause of diseases classified elsewhere; Z79.899 Other long term (current) drug therapy; Z79.890 Hormone replacement therapy; X58.XXXA Exposure to other specified factors, initial encounter; E66.9 Obesity, unspecified; Z68.34 Body mass index [BMI] 34.0-34.9, adult
CPT/HCPCS: 36415; 71045; 76770; 80053; 80069; 80202; 82962; 83735; 84100; 84439; 84443; 84484; 85025; 87086; 87088; 87426; 87449; 90937; 92526; 92610; 93005; 93306; 94762; 97162; 97167; 97530; 97535; 97802; J7030; J7040; J7050; G0257; J2405